=== PATIENT | female | born 1950 | race Caucasian/White ===

== ENCOUNTER 2020-07-20 15:44 | Outpatient (RCR) | payer MEDICARE, BC, SELFPAY | END 2020-07-20 23:59 | LOC: IMMUN 15:44 | PROVIDERS: PCP Nurse Practitioner Adult Health; Visit Provider Family Medicine | DX: Z23 Encounter for immunization (principal) | CPT/HCPCS: 0011A; 0012A ==

== ENCOUNTER → 2021-11-08 | Outpatient (CLI) | payer BC, MEDICARE, SELFPAY ==
[2021-11-08 13:24] LABS: ALB/GLOB Ratio 1.1 RATIO (0.9-2.4); AST(SGOT) 19 U/L (15-37); Alanine Aminotransfer ALT/SGPT 22 U/L (13-56); Albumin, Serum 3.5 g/dL (3.2-5.0); Alkaline Phosphatase 115 U/L (45-117); Anion Gap 8 (5-15); BUN 18 mg/dL (7-18); BUN/Creat Ratio 23.3 RATIO (10-20); Calcium,Total 9.2 mg/dL (8.5-10.1); Chloride 100 mmol/L (98-107); Creatinine, Serum 0.77 mg/dL (0.55-1.02); EST Glomerular Filtration Rate 78 mL/min (>60); Est Glom Filt Rate - Afr Amer 94 mL/min (>60); Globulin 3.3 g/dL (2.2-4.2); Glucose 99 mg/dL (74-106); Magnesium 1.7 mg/dL (1.6-2.6); Potassium 3.8 mmol/L (3.5-5.1); Protein, Total 6.8 g/dL (6.4-8.2); Sodium Level 132 mmol/L (136-145)
== END | disposition home or self-care (01) ==
LOC: LABSPEC 11:39
PROVIDERS: PCP Nurse Practitioner Adult Health; Visit Provider Internal Medicine Hematology & Oncology
DX: C34.90 Malignant neoplasm of unspecified part of unspecified bronchus or lung (principal)
CPT/HCPCS: 80053; 83735

== ENCOUNTER 2021-11-13 14:27 | Inpatient (IN) | payer BC, MEDICARE, SELFPAY ==
[2021-11-13 14:28] VITALS: BP 132/78; PULSE 95; RESP 20; TEMP 36.6; O2SAT 94; BMI 19.9
[2021-11-13] MEDS: Metoclopramide 10 MG/2 ML Vial 5 MG IV (15:24)
[2021-11-13] MEDS: DiphenhydrAMINE 50 MG/ML Syringe 12.5 MG IV (15:25)
[2021-11-13 15:37] LABS: Hematocrit 32.5 % (37-47); Hemoglobin 11.3 g/dL (12.0-15.0); Mean Corp Hgb Conc 34.8 g/dL (32-36); Mean Corpuscular Hgb 31.4 pg (27.0-32.0); Mean Corpuscular Volume 90.3 fL (81-99); POSITIVE COUNT YES; POSITIVE DIFFERENTIAL YES; POSITIVE MORPHOLOGY YES; Platelet Count 137 K/mm3 (150-450); RBC Distribution Width CV 12.7 % (11.6-14.6); RBC Distribution Width SD 42.1 fl (35.1-43.9); White Blood Count 19.3 K/mm3 (4.4-11.0)
[2021-11-13 16:06] LABS: Differential Indicated MANUAL DIFF
[2021-11-13 16:16] LABS: AST(SGOT) 18 U/L (15-37); Alanine Aminotransfer ALT/SGPT 17 U/L (13-56); Albumin, Serum 3.2 g/dL (3.2-5.0); Alkaline Phosphatase 117 U/L (45-117); Anion Gap 10 (5-15); BUN 9 mg/dL (7-18); BUN/Creat Ratio 18.8 RATIO (10-20); Bilirubin, Direct 0.38 mg/dL (0.00-0.30); Calcium,Total 8.4 mg/dL (8.5-10.1); Chloride 80 mmol/L (98-107); Creatinine, Serum 0.48 mg/dL (0.55-1.02); EST Glomerular Filtration Rate 136 mL/min (>60); Est Glom Filt Rate - Afr Amer 164 mL/min (>60); Globulin 2.6 g/dL (2.2-4.2); Glucose 100 mg/dL (74-106); Potassium 3.8 mmol/L (3.5-5.1); Protein, Total 5.8 g/dL (6.4-8.2)
[2021-11-13 16:20] LABS: Sodium Level 114 mmol/L (136-145)
--- NOTE | 2021-11-13 16:20 | EX.ED.DYSGE1 ---
HPI History of Present Illness Chief Complaint: Nausea/Vomiting Informant: patient Onset/Context/Timing Onset: Days (5 days) Context: Gradual Onset Current Severity: Moderate Maximum Severity: Moderate Narrative Narrative: Patient presents secondary to nausea and vomiting. She is currently undergoing chemotherapy for lung cancer. She started a new regimen and receives treatments on Monday, Monday, and Monday. She states by Monday afternoon she started to feel ill and has had nausea and vomiting since. She is not been able to keep anything down. She has tried Zofran and Phenergan at home without improvement. [facility] Medical History Heart attack Kidney stone Lung cancer Allergy/AdvReac Type Severity Reaction Status Date / Time latex Allergy Rash Verified 11/13/21 14:30 Penicillins Allergy Anaphylaxis Verified 11/13/21 14:30 Surgical History S/P AAA repair Social History Smoking Status: Former smoker ROS ROS ED Constitutional Constitutional ED: Denies chills or fever(s) Eyes Eyes: Denies change in vision or discharge from eye(s) ENT ENT ED: Denies discharge from eye(s), rhinorrhea or sore throat Cardiovascular Cardiovascular: Denies chest pain or palpitations Respiratory/Chest Respiratory/Chest: Denies cough or dyspnea Gastrointestinal Gastrointestinal: Reports abdominal pain, nausea and vomiting; Denies diarrhea Genitourinary Genitourinary ED: Denies difficulty urinating or dysuria Musculoskeletal Musculoskeletal: Denies back pain or extremity pain Integumentary Denies Abrasions or rash Neurologic Neurologic: Reports weakness; Denies headache(s) Allergic/Immunologic Allergic/Immunologic ED: Denies lip swelling or urticaria EXAM Physical Exam Const Vital Signs: 11/13/21 14:28 Temperature 98 F Temperature Source Temporal Pulse Rate 95 Respiratory Rate 20 H Blood Pressure 132/78 H Blood Pressure Mean 96 Pulse Ox 94 Oxygen Delivery Method Room Air Positive well nourished and well developed General Appearance ED: well developed HEENT Reports dry mucous membranes Mouth ED: Yes dry mucous membranes Mouth: dry mucous membranes Neck no lymphadenopathy Chest Wall inspection of chest normal and palpation of chest normal Resp normal respiratory effort and clear to auscultation bilaterally Cardio regular rate and regular rhythm GI non-tender and non-distended Auscultation: hypoactive bowel sounds Extremity normal to inspection Neuro oriented x3 and no sensory deficits noted Motor Exam: strength 5/5 throughout Psych mental status grossly normal Skin no rashes or lesions noted MDM MDM MDM Narrative Medical decision making narrative: Patient history with IV fluids along with Reglan and Benadryl. Lab work obtained. Lab Data Attestation: I reviewed the patient's lab results. Labs: Laboratory Results - last 24 hr 11/13/21 11/13/21 15:26 15:26 WBC 19.3 H RBC 3.60 L Hgb 11.3 L Hct 32.5 L MCV 90.3 MCH 31.4 MCHC 34.8 RDW Std Deviation 42.1 RDW Coeff of Surinder 12.7 Plt Count 137 L MPV 9.0 Neut % (Auto) Not Reportable Sodium 114 L* Potassium 3.8 Chloride 80 L Carbon Dioxide 24.0 Anion Gap 10 BUN 9 Creatinine 0.48 L Estim Creat Clear Calc 33.50 Est GFR (MDRD) Af Amer 164 Est GFR (MDRD) Non-Af 136 BUN/Creatinine Ratio 18.8 Glucose 100 Calcium 8.4 L Total Bilirubin 1.60 H Direct Bilirubin 0.38 H AST 18 ALT 17 Alkaline Phosphatase 117 Total Protein 5.8 L Albumin 3.2 Globulin 2.6 Treatment and Re-Evaluation Narrative: Patient's sodium returns low at 114. Her BUN and creatinine are normal. White count is elevated at 19.3. Abdomen is nontender to palpation. She will require additional normal saline for sodium correction. I will speak with hospitalist for admission. Discharge Plan Triage Chief Complaint: Nausea/Vomiting ED Provider: Wanda Solomon Dx/Rx/DC Orders Clinical Impression: Acute hyponatremia, Vomiting Primary Care Provider: Crissy Lema NP Referrals: Crissy Lema NP, [facility] [Primary Care Provider] - Disposition Disposition: [facility] Care [facility]
[2021-11-13 16:25] LABS: Lymphocyte 2 % (19-41); Monocyte 1 % (0-10); Neutrophil-Band 3 % (0-5); Neutrophil-Segmented 94 % (47-70); Total Cells Counted 100 (MANUAL DIFF)
[2021-11-13 16:28] LABS: Dohle Bodies 3+
[2021-11-13 16:32] LABS: Absolute Neutrophil Count 18.7 X10^3/uL (2.0-7.7)
[2021-11-13 16:32] LABS: Mucous, Urine 0 SEEN /hpf (<or=2+)
[2021-11-13 16:33] LABS: Absolute Lymphocyte Count 0.39 X10^3/uL (0.83-4.51)
[2021-11-13 16:35] LABS: Color, Urine Straw (Yellow); Glucose, Dipstick Normal (Normal); Ketone-Dipstick Negative (Negative); Leukocyte Esterase-Dipstick 25 /ul (Negative); Nitrite-Dipstick Negative (Negative); Occult Blood-Urine 25 /ul (Negative); Protein-Dipstick Negative (Negative); Specific Gravity, Urine 1.005 (1.002-1.030); Urine Bilirubin Dipstick Negative (Negative); Urine Clarity Clear (Clear); Urine Urobilinogen Normal (Normal)
[2021-11-13 16:47] LABS: Bacteria 1+ /hpf (None Seen); Red Blood Cells-Urine 5-10 SEEN /hpf (0-5); Squamous Epithelial Cells - UA 0-5 SEEN /hpf (5-10); White Blood Cells 0-5 SEEN /hpf (0-5)
[2021-11-13 17:19] VITALS: BP 128/74; PULSE 92; RESP 18; TEMP 36.7; O2SAT 94
[2021-11-13 18:50] VITALS: BP 137/82; PULSE 80; RESP 18; TEMP 36.6; O2SAT 95
[2021-11-13 18:51] VITALS: BMI 20.5
--- NOTE | 2021-11-13 19:03 | HP.PCM.HOS_ITS ---
HPI - General General Date of Admission: 11/13/21 Date of Service: 11/13/21 HPI Narrative SAPPHIRE LOOMIS, is a 71 F who presents to the emergency room at [facility] with complaints of persistent nausea since she had her first chemotherapy last Monday for small cell lung cancer. Patient tells me that the last time she vomited was Monday but she has had very little intake since that time. Lab work was performed by the emergency room, her WBC was elevated at 19.3, hemoglobin was 11.3, her sodium was 114, bilirubin was 1.6. 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 Patient no longer smokes, she states she quit smoking 3 months ago. Patient will be given IV normal saline, she will be put on a fluid restriction and be given demeclocycline. Labs will be monitored. [facility] Medical History Heart attack Kidney stone Lung cancer Allergy/AdvReac Type Severity Reaction Status Date / Time latex Allergy Rash Verified 11/13/21 14:30 Penicillins Allergy Anaphylaxis Verified 11/13/21 14:30 succinylcholine Allergy Anaphylaxis Verified 11/13/21 18:56 aspirin [ASA] AdvReac Upset Verified 11/13/21 18:55 Stomach Surgical History S/P AAA repair Social History Smoking Status: Former smoker ROS Constitutional Constitutional: Reports weakness; Denies anorexia, change in weight, fever(s) or night sweats Eyes Eyes: Denies blurry vision, change in eye color, change in vision, discharge from eye(s) or eye pain Cardiovascular Cardiovascular: Denies chest pain, claudication, dyspnea on exertion, edema, li ghtheadedness, orthopnea or palpitations Respiratory/Chest Respiratory/Chest: Denies cough, hemoptysis, shortness of breath at rest or shortness of breath with exertion Gastrointestinal Gastrointestinal: Reports nausea and vomiting; Denies abdominal pain, constipation, diarrhea, hematemesis, hematochezia or melena Genitourinary Genitourinary: Denies difficulty urinating, dysuria, hematuria, urinary frequency, urinary hesitancy, urinary incontinence or urinary urgency Musculoskeletal Musculoskeletal: Denies back pain, joint pain, joint stiffness, joint swelling, myalgias or neck pain Neurologic Neurologic: Reports headache(s); Denies abnormal gait, abnormal speech, dizziness, focal weakness, loss of vision, numbness, other visual disturbances, paresthesias, syncope or tingling Psychiatric Psychiatric: Denies anxiety, cognitive impairment, depression, irritability, mood swings or suicidal ideation Endocrine Endocrinology: Denies change in body appearance, cold intolerance, excessive sweating, heat intolerance, polydipsia or polyuria Hematologic/Lymphatic Hematologic/Lymphatic: Denies none, anemia, easy bleeding, easy bruising or lymphadenopathy Allergic/Immunologic Allergic/Immunologic: Denies rhinitis, urticaria, eczemia or asthma Vital Signs Vital Signs Vital Signs: 11/13/21 14:28 11/13/21 17:19 11/13/21 18:50 Temperature 98 F 98.1 F 97.8 F Temperature Source Temporal Temporal Oral Pulse Rate 95 92 80 Respiratory Rate 20 H 18 18 Blood Pressure 132/78 H 128/74 H 137/82 H Blood Pressure Mean 96 92 100 Blood Pressure Source Monitor Blood Pressure Position Semi-Fowlers Blood Pressure Location Right Arm Pulse Ox 94 94 95 Oxygen Delivery Method Room Air Room Air Room Air Weight Weight: 43.137 kg Body Mass Index (BMI) 20.5 Physical Exam Narrative Patient complains of a headache at this time Const alert, oriented x3 and no apparent distress Constitutional Narrative: Patient appears older than her stated age General Appearance: cooperative, well kempt and well developed Orientation / Consciousness: awake, oriented to person, oriented to place and oriented to time HEENT normocephalic, head/scalp atraumatic, hearing grossly normal bilaterally and moist oral mucous membranes Eyes PERRL, EOMs intact bilaterally and conjunctivae normal Neck nuchal rigidity, supple, no JVD, thyroid normal and no carotid bruits General: trachea midline Resp normal respiratory effort, no retractions, no use of accessory muscles and clear to auscultation bilaterally Auscultation: Negative for rales, rhonchi or wheezes Cardio regular rate, regular rhythm, S1 normal heart sound, S2 normal heart sound, no murmurs, no rub and no gallops GI normal to inspection, nondistended, normoactive bowel sounds, soft to palpation, non-tender and non-distended Extremity no clubbing, cyanosis or edema Skin no rashes or lesions noted General Skin Exam: no breakdown Neuro oriented x3, CN's II-XII intact bilaterally, moves all extremities, no focal motor deficits and no sensory deficits noted Sensorium / Orientation: awake and alert Speech: speech normal Psych affect normal Results Lab / Micro Data Result Diagrams: 11/13/21 15:26 11/13/21 15:26 Labs: Laboratory Results - last 24 hr 11/13/21 15:26: WBC 19.3 H, RBC 3.60 L, Hgb 11.3 L, Hct 32.5 L, MCV 90.3, MCH 31.4, MCHC 34.8, RDW Std Deviation 42.1, RDW Coeff of Surinder 12.7, Plt Count 137 L, MPV 9.0, Neut % (Auto) Not Reportable, Absolute Neuts (auto) 18.7 H, Absolute Lymphs (auto) 0.39 L, Total Counted 100, Neutrophils % (Manual) 94 H, Band Neutrophils % 3, Lymphocytes % (Manual) 2 L, Monocytes % (Manual) 1, Diff Path Review May Trisha smith Bodies 3+ 11/13/21 15:26: Sodium 114 L*, Potassium 3.8, Chloride 80 L, Carbon Dioxide 24.0, Anion Gap 10, BUN 9, Creatinine 0.48 L, Estim Creat Clear Calc 33.50, Est GFR (MDRD) Af Amer 164, Est GFR (MDRD) Non-Af 136, BUN/Creatinine Ratio 18.8, Glucose 100, Calcium 8.4 L, Total Bilirubin 1.60 H, Direct Bilirubin 0.38 H, AST 18, ALT 17, Alkaline Phosphatase 117, Total Protein 5.8 L, Albumin 3.2, Globulin 2.6 11/13/21 16:28: Urine Color Straw, Urine Clarity Clear, Urine pH 7.0, Ur Specific [place] 1.005, Urine Protein Negative, Urine Glucose (UA) Normal, Urine Ketones Negative, Urine Occult Blood 25 H, Urine Nitrite Negative, Urine Bilirubin Negative, Urine Urobilinogen Normal, Ur Leukocyte Esterase 25 H, Urine RBC 5-10 SEEN, Urine WBC 0-5 SEEN, Ur Squamous Epith Cells 0-5 SEEN, Urine Bacteria 1+, Urine Mucus 0 SEEN Assessment & Plan Assessment/Plan (1) Acute hyponatremia: PLAN: Plan 1. Acute on chronic hyponatremia-secondary to ADH from small cell lung cancer- patient will be admitted to [facility] 3, she will be given IV fluids and put on a fluid restriction, labs will be monitored, patient will be placed on the meclocycline. #2 nausea with vomiting-patient will be placed on Zofran for vomiting and nausea #3 small cell lung cancer-complicates care, recovery, and prognosis #4 leukocytosis-etiology unclear, labs will be monitored 5. Chronic pain-patient uses MS Contin and Oxy IR at home, these will be continued. Charges/Coding Visit Charges Inpatient E&M: 84593 Init Hosp L3
[2021-11-13] MEDS: Acetaminophen 325 MG Tablet 650 MG PO (19:44)
[2021-11-13] MEDS: Ondansetron 4 MG/2 ML Vial IV (19:44)
[2021-11-13] MEDS: oxyCODONE 5 MG Tablet 10 MG PO (19:45)
[2021-11-13] MEDS: 0.9% Normal Saline 1,000 ML 125 ML IV (19:49)
[2021-11-13 21:58] VITALS: O2SAT 96
[2021-11-13 23:06] LABS: Anion Gap 10 (5-15); BUN 8 mg/dL (7-18); BUN/Creat Ratio 19.6 RATIO (10-20); Calcium,Total 7.8 mg/dL (8.5-10.1); Chloride 84 mmol/L (98-107); Creatinine, Serum 0.41 mg/dL (0.55-1.02); EST Glomerular Filtration Rate 163 mL/min (>60); Est Glom Filt Rate - Afr Amer 197 mL/min (>60); Estimated Creatinine Clearance 34.63 ml/min; Glucose 100 mg/dL (74-106); Potassium 3.4 mmol/L (3.5-5.1); Sodium Level 119 mmol/L (136-145)
[2021-11-13] MEDS: Potassium Chloride Oral Tablet 20 MEQ 40 MEQ PO (23:23)
[2021-11-13] MEDS: morphine SR 15 MG Tablet PO (23:23)
[2021-11-13] MEDS: Temazepam 15 MG Capsule PO (23:31)
[2021-11-14] VITALS (8 sets, daily range): BP systolic 100–146; BP diastolic 62–70; PULSE 70–83; RESP 16–18; TEMP 36.6–37.1; O2SAT 93–97
[2021-11-14] MEDS: 0.9% Normal Saline 1,000 ML 125 ML IV ×3 (04:00→15:47)
[2021-11-14 05:04] LABS: Platelet Estimate SLT DEC (ADEQ); Red Cell Morphology NORM C+C NORMAL (NORM C&C)
[2021-11-14 06:21] LABS: Hematocrit 30.3 % (37-47); Hemoglobin 10.4 g/dL (12.0-15.0); Mean Corp Hgb Conc 34.3 g/dL (32-36); Mean Corpuscular Hgb 31.5 pg (27.0-32.0); Mean Corpuscular Volume 91.8 fL (81-99); Mean Platelet Vol. 9.4 fl (6.2-12.0); POSITIVE COUNT YES; POSITIVE MORPHOLOGY YES; Platelet Count 102 K/mm3 (150-450); RBC Distribution Width CV 12.8 % (11.6-14.6); White Blood Count 10.1 K/mm3 (4.4-11.0)
[2021-11-14 06:24] LABS: Differential Indicated MANUAL DIFF
[2021-11-14] MEDS: oxyCODONE 5 MG Tablet 10 MG PO ×3 (06:30→18:42)
[2021-11-14 06:47] LABS: Anion Gap 9 (5-15); BUN 6 mg/dL (7-18); BUN/Creat Ratio 18.8 RATIO (10-20); Chloride 86 mmol/L (98-107); Creatinine, Serum 0.32 mg/dL (0.55-1.02); EST Glomerular Filtration Rate 216 mL/min (>60); Est Glom Filt Rate - Afr Amer 262 mL/min (>60); Estimated Creatinine Clearance 34.63 ml/min; Glucose 85 mg/dL (74-106); Magnesium 1.8 mg/dL (1.6-2.6); Potassium 3.6 mmol/L (3.5-5.1); Sodium Level 118 mmol/L (136-145)
[2021-11-14 06:56] LABS: Platelet Estimate SLT DEC (ADEQ); Red Cell Morphology NORM C+C NORMAL (NORM C&C)
[2021-11-14 07:03] LABS: Lymphocyte 9 % (19-41); Metamyelocyte 1 % (0-1); Neutrophil-Band 3 % (0-5); Neutrophil-Segmented 87 % (47-70); Total Cells Counted 100 (MANUAL DIFF)
[2021-11-14 07:05] LABS: Absolute Neutrophil Count 9.2 X10^3/uL (2.0-7.7); Neutrophil # 9.19 X10^3/uL (2.7-7.7)
[2021-11-14 07:06] LABS: Absolute Lymphocyte Count 0.91 X10^3/uL (0.83-4.51); Lymphocyte # 0.91 X10^3/ul (0.83-4.51)
[2021-11-14] MEDS: morphine SR 15 MG Tablet PO ×2 (09:27→22:34)
[2021-11-14] MEDS: Enoxaparin 40 MG/0.4 ML Syringe SC (09:27)
[2021-11-14] MEDS: Acetaminophen 325 MG Tablet 650 MG PO (09:28)
--- NOTE | 2021-11-14 12:44 | PN.HOSP_ITS ---
Subjective Subjective Patient was seen and examined today, she requested a regular diet, she states she feels much better. Patient's sodium today was 118, patient has no complaints of any nausea or vomiting today Objective Data Objective Data Vital Signs: Vital Signs Temp Pulse Resp BP Pulse Ox 98 F 77 18 126/63 H 94 11/14/21 12:30 11/14/21 12:30 11/14/21 12:30 11/14/21 12:30 11/14/21 12:30 Oxygen Delivery Method Room Air Weight: 43.137 kg Body Mass Index (BMI) 20.5 Intake & Output: Intake and Output for Last 24 Hours 11/12/21 11/13/21 11/14/21 23:59 23:59 23:59 Intake Total 500 / 500 2355.83 / 2355.83 Balance 500 / 500 2355.83 / 2355.83 Lab / Micro Data Result Diagrams: 11/14/21 05:58 11/14/21 05:58 Labs: Laboratory Results - last 24 hr 11/13/21 15:26: WBC 19.3 H, RBC 3.60 L, Hgb 11.3 L, Hct 32.5 L, MCV 90.3, MCH 31.4, MCHC 34.8, RDW Std Deviation 42.1, RDW Coeff of Surinder 12.7, Plt Count 137 L, MPV 9.0, Neut % (Auto) Not Reportable, Absolute Neuts (auto) 18.7 H, Absolute Ly mphs (auto) 0.39 L, Total Counted 100, Neutrophils % (Manual) 94 H, Band Neutrophils % 3, Lymphocytes % (Manual) 2 L, Monocytes % (Manual) 1, Diff Path Review May foll, Dohle Bodies 3+, Platelet Estimate SLT DEC, RBC Morphology NORM C+C 11/13/21 15:26: Sodium 114 L*, Potassium 3.8, Chloride 80 L, Carbon Dioxide 24.0, Anion Gap 10, BUN 9, Creatinine 0.48 L, Estim Creat Clear Calc 33.50, Est GFR (MDRD) Af Amer 164, Est GFR (MDRD) Non-Af 136, BUN/Creatinine Ratio 18.8, Glucose 100, Calcium 8.4 L, Total Bilirubin 1.60 H, Direct Bilirubin 0.38 H, AST 18, ALT 17, Alkaline Phosphatase 117, Total Protein 5.8 L, Albumin 3.2, Globulin 2.6 11/13/21 16:28: Urine Color Straw, Urine Clarity Clear, Urine pH 7.0, Ur Specific [place] 1.005, Urine Protein Negative, Urine Glucose (UA) Normal, Urine Ketones Negative, Urine Occult Blood 25 H, Urine Nitrite Negative, Urine Bilirubin Negative, Urine Urobilinogen Normal, Ur Leukocyte Esterase 25 H, Urine RBC 5-10 SEEN, Urine WBC 0-5 SEEN, Ur Squamous Epith Cells 0-5 SEEN, Urine Bacteria 1+, Urine Mucus 0 SEEN 11/13/21 22:37: Sodium 119 L*, Potassium 3.4 L, Chloride 84 L, Carbon Dioxide 25.0, Anion Gap 10, BUN 8, Creatinine 0.41 L, Estim Creat Clear Calc 34.63, Est GFR (MDRD) Af Amer 197, Est GFR (MDRD) Non-Af 163, BUN/Creatinine Ratio 19.6, Glucose 100, Calcium 7.8 L 11/14/21 05:58: WBC 10.1, RBC 3.30 L, Hgb 10.4 L, Hct 30.3 L, MCV 91.8, MCH 31.5, MCHC 34.3, RDW Std Deviation 43.0, RDW Coeff of Surinder 12.8, Plt Count 102 L, MPV 9.4, Neut % (Auto) Not Reportable, Absolute Neuts (auto) 9.2 H, Absolute Lymphs (auto) 0.91, Total Counted 100, Neutrophils % (Manual) 87 H, Band Neutrophils % 3, Lymphocytes % (Manual) 9 L, Metamyelocytes % 1, Diff Path Review September, Platelet Estimate SLT DEC, RBC Morphology NORM C+C 11/14/21 05:58: Sodium 118 L*, Potassium 3.6, Chloride 86 L, Carbon Dioxide 23.0, Anion Gap 9, BUN 6 L, Creatinine 0.32 L, Estim Creat Clear Calc 34.63, Est GFR (MDRD) Af Amer 262, Est GFR (MDRD) Non-Af 216, BUN/Creatinine Ratio 18.8, Glucose 85, Calcium 8.0 L, Magnesium 1.8 Physical Exam Narrative Patient complains of a headache at this time Const alert, oriented x3 and no apparent distress Constitutional Narrative: Patient appears older than her stated age General Appearance: cooperative, well kempt and well developed Orientation / Consciousness: awake, oriented to person, oriented to place and oriented to time HEENT normocephalic, head/scalp atraumatic, hearing grossly normal bilaterally and moist oral mucous membranes Eyes PERRL, EOMs intact bilaterally and conjunctivae normal Neck nuchal rigidity, supple, no JVD, thyroid normal and no carotid bruits General: trachea midline Resp normal respiratory effort, no retractions, no use of accessory muscles and clear to auscultation bilaterally Auscultation: Negative for rales, rhonchi or wheezes Cardio regular rate, regular rhythm, S1 normal heart sound, S2 normal heart sound, no murmurs, no rub and no gallops GI normal to inspection, nondistended, normoactive bowel sounds, soft to palpation, non-tender and non-distended Extremity no clubbing, cyanosis or edema Skin no rashes or lesions noted General Skin Exam: no breakdown Neuro oriented x3, CN's II-XII intact bilaterally, moves all extremities, no focal motor deficits and no sensory deficits noted Sensorium / Orientation: awake and alert Speech: speech normal Psych affect normal Assessment & Plan Assessment/Plan (1) Acute hyponatremia: PLAN: Plan 1. 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 Chronic pain-patient uses MS Contin and Oxy IR at home, these will be con tinued. Charges/Coding Visit Charges Inpatient E&M: 33044 Subs Hosp L2
[2021-11-14] MEDS: Ondansetron 4 MG/2 ML Vial IV (22:34)
[2021-11-15] MEDS: 0.9% Normal Saline 1,000 ML 125 ML IV ×2 (00:40→06:32)
[2021-11-15] MEDS: Temazepam 15 MG Capsule PO (00:40)
[2021-11-15] MEDS: oxyCODONE 5 MG Tablet 10 MG PO ×3 (00:42→12:42)
[2021-11-15 03:58] VITALS: O2SAT 94
[2021-11-15 04:35] VITALS: BP 114/61; PULSE 71; RESP 16; TEMP 36.6; O2SAT 94
[2021-11-15] MEDS: Acetaminophen 325 MG Tablet 650 MG PO (05:41)
[2021-11-15 06:35] LABS: Anion Gap 8 (5-15); BUN 11 mg/dL (7-18); BUN/Creat Ratio 27.6 RATIO (10-20); Calcium,Total 8.1 mg/dL (8.5-10.1); Chloride 95 mmol/L (98-107); EST Glomerular Filtration Rate 167 mL/min (>60); Est Glom Filt Rate - Afr Amer 202 mL/min (>60); Estimated Creatinine Clearance 34.63 ml/min; Glucose 87 mg/dL (74-106); Potassium 3.5 mmol/L (3.5-5.1); Sodium Level 127 mmol/L (136-145)
--- NOTE | 2021-11-15 07:22 | PCM.PN.HOSP ---
Subjective Subjective Patient is a 71-year-old lady with history of small cell lung CA sent to the hospital by her oncologist with significant nausea following chemo. Patient was found to be hyponatremic admitted to regular nursing floor for subsequent management Objective Data Objective Data Vital Signs: Vital Signs Temp Pulse Resp BP Pulse Ox 97.9 F 71 16 114/61 94 11/15/21 04:35 11/15/21 04:35 11/15/21 04:35 11/15/21 04:35 11/15/21 04:35 Oxygen Delivery Method Room Air Weight: 43.137 kg Body Mass Index (BMI) 20.5 Intake & Output: Intake and Output for Last 24 Hours 11/13/21 11/14/21 11/15/21 23:59 23:59 23:59 Intake Total 500 / 500 4372.91 / 4372.91 1033.33 / 1033.33 Balance 500 / 500 4372.91 / 4372.91 1033.33 / 1033.33 Lab / Micro Data Result Diagrams: 11/14/21 05:58 11/15/21 05:50 Labs: Laboratory Results - last 24 hr 11/15/21 05:50: Sodium 127 L, Potassium 3.5, Chloride 95 L, Carbon Dioxide 24.0, Anion Gap 8, BUN 11, Creatinine 0.40 L, Estim Creat Clear Calc 34.63, Est GFR (MDRD) Af Amer 202, Est GFR (MDRD) Non-Af 167, BUN/Creatinine Ratio 27.6 H, Glucose 87, Calcium 8.1 L Physical Exam Narrative GENERAL: cooperative HEENT: Atraumatic; EYES; Anicteric, Normal Conjunctiva NECK; supple, normal thyroid, RESPIRATORY: Diminished to auscultation CARDIOVASCULAR: Regular S1 S2, GI: soft, normoactive bowel sounds, : No Renal angle tenderness; EXTREMITIES: No edema, no clubbing, MUSCULOSKELETAL: no muscle wasting NEURO: Awake; no lateralizing signs. SKIN: No Rash PSYCH; Flat affect Assessment & Plan Assessment/Plan (1) Acute hyponatremia: PLAN: Plan Patient is a 71-year-old lady with history of small cell lung CA sent to the hospital by her oncologist with significant nausea following chemo. Patient was found to be hyponatremic admitted to regular nursing floor for subsequent management 1. Acute on chronic hyponatremia ? Secondary to SIADH due to her underlying small cell Lung cancer. Patient has been managed with water restriction, demeclocycline as well as serial monitoring of electrolytes 2. Post chemo nausea vomiting ? Treated symptomatically 3. Small cell lung CA ? Patient being managed by Dr. Corbett as outpatient 4. Chronic pain ? Did continue patient pain regimen from home 5. DVT prophylaxis - On enoxaparin Charges/Coding Visit Charges Inpatient E&M: 60302 Subs Hosp L2
--- NOTE | 2021-11-15 08:01 | CON.PCM.ON_ITS ---
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 --Responsive to fluid restriction and normal saline administration. -Also responding to demeclocycline. Plan: -Demeclocycline 150 mg 3 times daily x7 more days. -Salt tablet 1 g 3 times daily. -Lasix 20 mg orally on Monday, Monday and Monday. -Fluid restriction 1 L a day. -Okay for d/c today. -My nurse coordinator will follow up with her later this week and BMP will be rechecked. (2) Small cell lung cancer: Status: Acute Code(s): C34.90 - Malignant neoplasm of unspecified part of unspecified bronchus or lung Plan: Impression: -Limited stage. Plan: -Start concurrent radiation with cycle #2. HPI Consult Data Date of Service:: 11/15/21 PCP / Referring Provider: TENISHA Conner Attending: Dr. Tobi Padilla MD Chief Complaint Chief Complaint: Hyponatremia and small cell lung cancer History of Present Illness History of Present Illness: Oncologic problem(s): 1) Limited stage small cell lung cancer. ? HPI: The patient is a 71-year-old female with a past medical history significant for smoking (quit 08/2021), COPD, CAD (VT treated with PCI and stent x1 2005; remains on ASA), anemia (previous GI bleed when on antiplatelet drugs for CAD), osteoporosis (multiple vertebral compression fractures; some repaired with kyphoplasty) and abdominal aortic aneurysm (endograft 12/2020). ? The patient was noted to have a possible 15 mm nodular density in the right midlung field on a chest x-ray done 07/25/2021. This chest x-ray was performed when she presented to the emergency room same day with a complaint of nausea and dizziness. A CT of the brain without IV contrast was also performed and it showed no evidence of an acute intracranial process. ? She presented to the ED at [facility] on 10/06 with a complaint of generally not feeling well. She complained of malaise and weakness. Associated symptoms included chills, nausea and vomiting. She was found to be COVID-positive. She was found to have severe hyponatremia with initial sodium of 116 and a repeat of 115. Chloride was also low. Chest x-ray demonstrated possible atelectasis left upper lobe. She was given IV fluid boluses and was transferred to [facility]. He was diagnosed with SIADH. Sodium improved with initial treatment with 3% saline. She was transferred to the regular medical floor once sodium improved 122. ? CT of the chest done on 10/08/2021 to rule out PE incidentally revealed new right hilar adenopathy with the largest lymph node measuring 2.2 x 2.0 cm. There was left hilar adenopathy. No mediastinal adenopathy was observed. The pulmonary artery was noted to be enlarged measuring 3.2 cm in transverse dimension. Methylmethacrylate was noted in multiple thoracic and upper lumbar vertebral bodies. There were stable compression fractures at T10, T12 and L1 levels. Common bile duct was noted to be dilated measuring 1.1 cm in transverse dimension. This was confirmed on liver ultrasound. Patient was discharged on demeclocycline 150 mg 3 times daily x7 days and instructed to begin salt tablet 1 g 3 times daily. She also was prescribed Lasix 20 mg on Monday, Wednesdays and Fridays and was fluid restricted to 1.2 L/day. ? Following discharge, patient underwent outpatient bronchoscopy at [facility] on 10/13/2021. She was noted to have normal bronchial mucosa and anatomy to at least the first subsegmental levels. Following that EBUS bronchoscope was inserted and sampling by transbronchial needle aspiration was performed using a 22-gauge needle from the right hilar lymph node. 8 samples were obtained. Preliminary cytology suggestive of malignancy. ? Pathology: A. Lung, core bx right hilum: - Small cell carcinoma (See comment). ? PET 11/02/2021: NECK: Physiologic FDG uptake seen in the visualized brain, parapharyngeal soft tissues, base of tongue, vocal cords, and salivary glands. No hypermetabolic cervical lymphadenopathy or masses. No focal hypermetabolic thyroid lesion. CHEST: Physiologic FDG uptake in the heart and mediastinum. Lungs and tracheobronchial tree: ?There is an FDG avid irregular spiculated 1.5 x 0.8 cm nodule in the posterior right upper lobe (maximum SUV 1.8), concerning for hypermetabolic neoplasm. No other hypermetabolic pulmonary consolidation, mass or nodules. Pleura: ? No hypermetabolic pleural or pericardial effusion, or pleural mass. Mediastinum and Lymph nodes: ?Hypermetabolic lymphadenopathy is seen at several sites, including pretracheal (maximum SUV 3.2), right pericardiac (maximum SUV 4.0), and hilar region (maximum SUV 3.3). Chest wall: ?Unremarkable. ABDOMEN AND PELVIS: Physiologic FDG uptake seen in the and GI tracts. Liver: No hypermetabolic hepatic lesions. Biliary: No bile duct dilation. Spleen: No hypermetabolic splenic mass. No splenomegaly. Pancreas: No hypermetabolic mass or duct dilation. Adrenals: No hypermetabolic adrenal lesion. Kidneys: No stones, hydronephrosis, or hypermetabolic lesions. GI tract: No dilation or wall thickening. Lymph nodes: No hypermetabolic abdominal or pelvic lymphadenopathy. Mesentery/Peritoneum: No ascites or mass. Vasculature: ?Vascular patency cannot be assessed due to lack of IV contrast. ?Aortobiiliac endovascular graft stent. BONES AND EXTREMITIES: No suspicious FDG avid osseous foci are detected. ?Vertebroplasties at several levels of the thoracolumbar spine. ?The imaged portions of the skeleton disclose age-related degenerative changes, with no detectable destructive lytic or sclerotic lesions. ? IMPRESSION: 1. ?NECK: No FDG avid neoplastic process. No hypermetabolic mass, adenopathy, or fluid collection. 2. ?CHEST: FDG avid right upper lobe pulmonary nodule, concerning for hypermetabolic neoplasm. ?Hypermetabolic mediastinal and right pulmonary hilar lymphadenopathy. 3. ?ABDOMEN/PELVIS: No FDG avid neoplastic process. ?No hypermetabolic mass, adenopathy, or fluid collection. 4. ?EXTREMITIES/SKELETON: ?No suspicious FDG avid osseous process. Patient had been initially admitted to [facility] for management of her acute illness consisting of hyponatremia. She was seen by nephrology. Fluid restriction was recommended. She was started on demeclocycline and received hypertonic saline initially. She was also started on salt tablets. She was discharged when sodium increased. She received her first cycle of carboplatin etoposide last week. Strategy was to administer chemotherapy for disease deep and then start concurrent radiation with cycle #2. After chemotherapy she experienced a lot of nausea and was getting an extra flu ids trying to keep up with hydration. She came to the emergency department on Monday and was found to be significantly hyponatremic again. She was administered saline and started on demeclocycline. Sodium up to 127 this morning. She offers no complaints. Her appetite is improved. She had nausea last night. She is following fluid restriction carefully. No nausea this morning. Advanced Directives Power of Rail [employer] Tabeler: No Living Will: No [facility] Medical History Heart attack Kidney stone Lung cancer Home Medications atorvastatin 10 mg tablet 10 tab BID cholesterol 11/13/21 [History Last Taken 11/13/21 09:00] demeclocycline 150 mg tablet 300 tab PO BID Check with primary doctor 11/13/21 [History Last Taken 11/13/21 16:00] fluticasone fur. 100 mcg-umeclid 62.5 mcg-vilant 25 mcg inhalat.powder (Trelegy Ellipta) 1 ea inhalation DAILY breathing treatment 11/13/21 [History Last Taken 11/13/21 09:00] sulindac 200 mg tablet 200 tab PO DAILY Check with primary doctor 11/13/21 [History Last Taken 11/13/21 09:00] morphine 15 mg tablet,extended release (MS Contin) 15 mg PO BID Check with primary doctor 11/14/21 [History Last Taken 11/13/21 22:00] Allergy/AdvReac Type Severity Reaction Status Date / Time latex Allergy Rash Verified 11/13/21 14:30 Penicillins Allergy Anaphylaxis Verified 11/13/21 14:30 succinylcholine Allergy Anaphylaxis Verified 11/13/21 18:56 aspirin [ASA] AdvReac Upset Verified 11/13/21 18:55 Stomach Surgical History S/P AAA repair Social History Smoking Status: Former smoker Physical Exam Const alert and oriented x3 Eyes no scleral icterus Neck no lymphadenopathy Lymph Lymphatic: no lymphadenopathy noted Resp normal respiratory effort Cardio regular rhythm Extremity no pedal edema Vital Signs Temperature 97.9 F 11/15/21 04:35 Temperature Source Oral 11/15/21 04:35 Pulse Rate 71 11/15/21 04:35 Pulse Strength Normal (2+) 11/14/21 20:28 Respiratory Rate 16 11/15/21 04:35 Respiratory Effort 11/15/21 03:58 Respiratory Depth Normal 11/15/21 03:58 Respiratory Pattern Normal 11/15/21 03:58 Blood Pressure 114/61 11/15/21 04:35 Blood Pressure Mean 78 11/15/21 04:35 Blood Pressure Source Monitor 11/15/21 04:35 Blood Pressure Position Semi-Fowlers 11/15/21 04:35 Blood Pressure Location Right Arm 11/15/21 04:35 Pulse Ox 94 11/15/21 04:35 Oxygen Delivery Method Room Air 11/15/21 04:35 Laboratory Results - last 24 hr 11/15/21 05:50: Sodium 127 L, Potassium 3.5, Chloride 95 L, Carbon Dioxide 24.0, Anion Gap 8, BUN 11, Creatinine 0.40 L, Estim Creat Clear Calc 34.63, Est GFR (MDRD) Af Amer 202, Est GFR (MDRD) Non-Af 167, BUN/Creatinine Ratio 27.6 H, Glucose 87, Calcium 8.1 L
--- NOTE | 2021-11-15 10:14 | DS.PCM_ITS ---
Providers Date of Admission: 11/13/21 Primary Care Physician: TENISHA Conner Reason For Visit: HYPONATREMIA Diagnosis Discharge Diagnosis (1) Acute hyponatremia: Status: Acute Code(s): E87.1 - Hypo-osmolality and hyponatremia Plan Patient is a 71-year-old lady with history of small cell lung CA sent to the hospital by her oncologist with significant nausea following chemo. Patient was found to be hyponatremic admitted to regular nursing floor for subsequent management 1. Acute on chronic hyponatremia ? Secondary to SIADH due to her underlying small cell Lung cancer. Patient has been managed with water restriction, demeclocycline as well as serial monitoring of electrolytes 2. Post chemo nausea vomiting ? Treated symptomatically 3. Small cell lung CA ? Patient being managed by Dr. Corbett as outpatient 4. Chronic pain ? Did continue patient pain regimen from home 5. DVT prophylaxis - On enoxaparin Medications at Discharge Home Medications atorvastatin 10 mg tablet 10 tab BID cholesterol 11/13/21 fluticasone fur. 100 mcg-umeclid 62.5 mcg-vilant 25 mcg inhalat.powder (Trelegy Ellipta) 1 ea inhalation DAILY breathing treatment 11/13/21 sulindac 200 mg tablet 200 tab PO DAILY Check with primary doctor 11/13/21 morphine 15 mg tablet,extended release (MS Contin) 15 mg PO BID Check with primary doctor 11/14/21 demeclocycline 150 mg tablet 150 mg PO TID Check with primary doctor #21 tabs 11/15/21 furosemide 20 mg tablet (Lasix) 20 mg PO QODAY #20 tabs 11/15/21 sodium chloride 1 gram tablet 1,000 mg PO TID #90 tabs 11/15/21 Hospital Course Summary of Care Provided Minutes Spent on Discharge: 40 Hospital Course: Patient is a 71-year-old lady with history of small cell lung CA sent to the hospital by her oncologist with significant nausea following chemo.? Patient was found to be hyponatremic admitted to regular nursing floor for subsequent management 1.? Acute on chronic hyponatremia ? Secondary to SIADH due to her underlying small cell Lung cancer.? Patient has been managed with water restriction, demeclocycline as well as serial monitoring of electrolytes 2.? Post chemo nausea vomiting ? Treated symptomatically 3.? Small cell lung CA ? Patient being managed by Dr. Corbett as outpatient 4.? Chronic pain ? Did continue patient pain regimen from home 5.? DVT prophylaxis - On enoxaparin Physical Exam Narrative GENERAL: cooperative HEENT: Atraumatic; EYES; Anicteric, Normal Conjunctiva NECK; supple, normal thyroid, RESPIRATORY: Diminished to auscultation CARDIOVASCULAR:? Regular S1 S2, GI:? soft, normoactive bowel sounds, : No Renal angle tenderness; EXTREMITIES:? No edema, no clubbing, MUSCULOSKELETAL:? no muscle wasting NEURO:? Awake;? no lateralizing signs. SKIN:? No Rash PSYCH; Flat? affect Weight / BMI Weight Weight: 43.137 kg Body Mass Index (BMI) 20.5 ABG / Lab / Microbiology Data Result Diagrams: 11/14/21 05:58 11/15/21 05:50 Laboratory: Laboratory Results - last 24 hr 11/15/21 05:50: Sodium 127 L, Potassium 3.5, Chloride 95 L, Carbon Dioxide 24.0, Anion Gap 8, BUN 11, Creatinine 0.40 L, Estim Creat Clear Calc 34.63, Est GFR (M DRD) Af Amer 202, Est GFR (MDRD) Non-Af 167, BUN/Creatinine Ratio 27.6 H, Glu cose 87, Calcium 8.1 L D/C Instructions Discharge Diet: No restrictions and 6 Cup Fluid Restriction Discharge Activity: Return to Normal Activity Call your doctor if you observe: Fever of 101 or Higher, Shortness of breath, Fainting spells and Chest pain Meaningful Use Info Meaningful Use Diagnoses (Choose all that apply): None applicable Discharge Plan Admission Admit Date/Time: 11/13/21 19:09 Attending Provider: Tobi Padilla Primary Care Provider: Crissy Lema EMBEDDED SOFTWARE DESIGN ENGINEER Consulting Providers: Yassine Albert Discharge Orders/Prescriptions Prescriptions: New furosemide [Lasix] 20 mg tablet 20 mg PO QODAY Qty: 20 0RF sodium chloride 1 gram tablet 1,000 mg PO TID Qty: 90 0RF Continued Trelegy Ellipta 100-62.5-25 mcg blister with device 1 ea INHALATION DAILY Label Comments: Inhale 1 Puff as instructed once daily. atorvastatin 10 mg tablet 10 tab BID sulindac 200 mg tablet 200 tab PO DAILY morphine [MS Contin] 15 mg Tablet Extended Release 15 mg PO BID Changed demeclocycline 150 mg tablet 150 mg PO TID Qty: 21 0RF Referrals / Follow Up: Vic Corbett DO [STAFF PHYSICIAN] - In 1 Week Crissy Lema NP, EMBEDDED SOFTWARE DESIGN ENGINEER-C [Primary Care Provider] - Disposition Disposition (needs filled in before D/C Order can be placed): Home, Self Care Charges/Coding Visit Charges Inpatient E&M: 25089 Disch Hosp
[2021-11-15] MEDS: morphine SR 15 MG Tablet PO (10:33)
[2021-11-15] MEDS: Enoxaparin 40 MG/0.4 ML Syringe SC (10:33)
--- NOTE | 2021-11-15 10:35 | CASEMGMT ---
RN SIDRA Face to Face with patient for initial transition planning/care coordination assessment. RN CM introduced self and role at [facility]. Patient lying in bed, alert and oriented. Patient willing to participate in assessment and is able to answer all questions appropriately. Care providers, pharmacy, and demographics verified. Patient wishes to discharge home, denies need for home health at this time. Patient states she has no further needs or concerns at this time. CM to follow for discharge planning needs that may arise. PCP: Torey FLOOR FINISHER Specialists: Chelle, oncology Preferred Pharmacy: [facility] Insurance: MELE Finney Prescription Benefit: yes Living Will/HPOA: none LNOK: Living Arrangements: Patient lives in a split level home with 6 steps and railing. Patient states she is independent and able to ambulate stairs. Transportation: self, DME/HHC: Patient states she has shower chair, raised toilet, cane, walker, grab bars, nebulizer, and pulse ox at home. Patient states she has had [facility] in the past. No previous SNF Disposition Plan: Patient to discharge home with family support and follow-up plans in place. Carmen VALENTINE, RN, CM
[2021-11-15 10:38] VITALS: BP 133/63; PULSE 76; RESP 16; TEMP 36.9; O2SAT 92
[2021-11-15 12:31] LABS: Pathologist Review Reviewed
[2021-11-15] MEDS: Ondansetron 4 MG/2 ML Vial IV (12:31)
[2021-11-15 12:32] LABS: Pathologist Review Reviewed
== END 2021-11-15 14:09 | disposition home or self-care (01) | DRG 644 ==
LOC: ED 16:23 → MS3 17:24
PROVIDERS: Admitting Provider Internal Medicine; Emergency Provider Emergency Medicine; PCP Nurse Practitioner Adult Health; Visit Provider Internal Medicine
DX: E22.2 Syndrome of inappropriate secretion of antidiuretic hormone (principal); C34.90 Malignant neoplasm of unspecified part of unspecified bronchus or lung; J44.9 Chronic obstructive pulmonary disease, unspecified; R11.2 Nausea with vomiting, unspecified; I25.10 Atherosclerotic heart disease of native coronary artery without angina pectoris; I25.2 Old myocardial infarction; G89.29 Other chronic pain; Z79.899 Other long term (current) drug therapy; Z87.891 Personal history of nicotine dependence; Z95.5 Presence of coronary angioplasty implant and graft
CPT/HCPCS: 36415; 80048; 80076; 81001; 83735; 85025; 97802; 99283; 99406; J7030; A4216; J2405

== ENCOUNTER 2022-01-04 09:21 | Inpatient (IN) | payer BC, MEDICARE, SELFPAY ==
[2022-01-04] VITALS (25 sets, daily range): BP systolic 76–143; BP diastolic 56–105; PULSE 88–168; RESP 14–32; TEMP 36.8–37.3; O2SAT 91–100; BMI 22.0; BMI 21.3
--- NOTE | 2022-01-04 09:43 | RAD_ITS ---
INDICATION: Pneumonia EXAMINATION/TECHNIQUE: X-RAY - XR Chest 1 View COMPARISON: None. FINDINGS: LINES/DEVICES: EKG leads are seen superimposing the chest. LUNGS: Biapical prominence suggestive of COPD changes. Prominence of the bronchovascular interstitial lung markings is visualized bilaterally. Peribronchial cuffing bilateral hilar prominence is seen, subtle scattered areas of patchy airspace opacification seen in bilateral lung hook but no evidence of focal lung consolidation is seen. Mild blunting of the costophrenic angles is seen, could represent pleural reaction. MEDIASTINUM AND CARDIOVASCULAR STRUCTURES: Cardiac silhouette is unremarkable. BONES AND SOFT TISSUES: Unremarkable. RAD/Chest 1 View (Portable) IMPRESSION: COPD changes and chronic interstitial changes seen, recommend clinical correlation for interstitial pneumonia no evidence of focal lung consolidation Electronically Signed: Héctor Noe MD at 10:48 EDT Reading Location ID and State: [facility] / [place] Tel , Service support ,
--- NOTE | 2022-01-04 09:44 | EKG12_ITS ---
Test Reason : SHORT OF BREATH Blood Pressure : / mmHG Vent. Rate : 095 BPM Atrial Rate : 095 BPM P-R Int : 146 ms QRS Dur : 096 ms QT Int : 400 ms P-R-T Axes : 064 049 038 degrees QTc Int : 502 ms Normal sinus rhythm Nonspecific ST abnormality Prolonged QT Abnormal ECG Confirmed by CECILIA HASKINS, KASANDRA ([id number]), index editor JESSIE HORNE ([id number]) on 01/06/2022 10:04:13 AM Referred By: MING Confirmed By:KASANDRA BROOKS MD
--- NOTE | 2022-01-04 09:45 | ED.VIS.DYS ---
HPI History of Present Illness Chief Complaint: Shortness of Breath Narrative Narrative: Patient's underwent chemotherapy 2 weeks ago is due again in another week presents with shortness of breath since 7:00 this morning, approximately 3 hours ago. She does not wear oxygen at home. She denies any chest pain. She has an occasional cough. Of note, she states that she went to [facility] yesterday and had a CAT scan of her lungs and was diagnosed with pneumonia and put on Levaquin. She used her inhaler this morning and states she feels short of breath and it was ineffective. She is had a low-grade fever over the last few days as high as 99.5 degrees. She was also put on prednisone yesterday. She denies any exacerbating or alleviating symptoms except for she went to lay down and she felt short of breath. [facility] Medical History AAA (abdominal aortic aneurysm) CAD (coronary artery disease) COPD exacerbation Heart attack History of GI bleed Kidney stone Lung cancer Osteoporosis SIADH (syndrome of inappropriate ADH production) Tobacco abuse Home Medications atorvastatin 10 mg tablet 10 tab QHS cholesterol 11/13/21 [History Last Taken 1 Month Ago ~12/04/21] fluticasone fur. 100 mcg-umeclid 62.5 mcg-vilant 25 mcg inhalat.powder (Trelegy Ellipta) 1 ea inhalation DAILY breathing treatment 11/13/21 [History Last Taken 01/03/22] sulindac 200 mg tablet 200 tab PO DAILY Check with primary doctor 11/13/21 [History Last Taken 01/02/22] morphine 15 mg tablet,extended release (MS Contin) 15 mg PO BID PAIN 11/14/21 [History Last Taken 01/04/22] sodium chloride 1 gram tablet 1,000 mg PO TID #90 tabs 11/15/21 [Rx Last Taken 01/03/22] albuterol sulfate 90 mcg/actuation aerosol inhaler 2 inh inhalation Q4H PRN SOB 01/04/22 [History Last Taken 01/04/22] alendronate 70 mg tablet 70 mg PO SOLIS BONES 01/04/22 [History Last Taken 01/02/22] aspirin 325 mg tablet 325 mg PO DAILY 01/04/22 [History Last Taken 01/02/22] levofloxacin 750 mg tablet 750 mg PO DAILY 01/04/22 [History Last Taken 01/04/22] loratadine 10 mg tablet (Claritin) 10 mg PO DAILY 01/04/22 [History Last Taken 01/04/22] magnesium oxide 400 mg (241.3 mg magnesium) tablet 400 mg PO DAILY SUPPLEMENT 01/04/22 [History Last Taken 01/03/22] oxycodone-acetaminophen 10 mg-325 mg tablet (Percocet) 1 tab PO Q6H PRN Pain 01/04/22 [History Last Taken 01/03/22] pantoprazole 40 mg tablet,delayed release 40 mg PO DAILY PRN GERD 01/04/22 [History Last Taken Unknown] potassium chloride 20 mEq tablet,extended release 20 meq PO BID 01/04/22 [History Last Taken 01/03/22] prednisone 50 mg tablet 50 mg PO DAILY 01/04/22 [History Last Taken 01/04/22] sucralfate 100 mg/mL oral suspension 10 ml PO 4X/DAY PRN GERD 01/04/22 [History Last Taken Unknown] Allergy/AdvReac Type Severity Reaction Status Date / Time latex Allergy Rash Verified 11/13/21 14:30 Penicillins Allergy Anaphylaxis Verified 11/13/21 14:30 succinylcholine Allergy Anaphylaxis Verified 11/13/21 18:56 aspirin [ASA] AdvReac Upset Verified 11/13/21 18:55 Stomach Family History (Updated 01/04/22 @ 13:[address] Mirian Hernandez DO) Other CAD (coronary artery disease) Heart disease Hypertension Surgical History S/P AAA repair Social History (Updated 01/04/22 @ 13:[address] Mirian Hernandez DO) Smoking Status: Former smoker alcohol intake: never substance use type: does not use ROS ROS ED ROS Narrative Constitutional: No fever, no chills. HEENT: No sore throat. No neck pain. No loss of vision. No rhinorrhea. Cardiovascular: No chest pain. No palpitations. No pedal edema. Respiratory: Occasional cough, positive shortness of breath. Abdominal: No abdominal pain. No nausea. No vomiting. Genitourinary: No dysuria. No hematuria. Musculoskeletal: No myalgias. No arthralgias. Neurologic: No headaches. No dizziness. No lightheadedness. Skin: No rash. No change in color. Psychiatric: No depression. No anxiety. EXAM Physical Exam Narrative Exam Narrative: Afebrile. Vital signs noted. Mild cachexia. HEENT: Normocephalic. Atraumatic. PERRL, EOMI. Neck soft and supple. No point tenderness or step off. Cardiovascular: Regular rate and rhythm. No murmurs, rubs, or gallops appreciated. Respiratory: No tachypnea. Lungs clear to auscultation bilaterally. Gastrointestinal: Abdomen soft, nontender, with normoactive bowel sounds. No rebound or guarding. Neurological: Awake. Alert. Nonfocal, nonlateralizing. Skin: No rash. Normal color. No pallor. Musculoskeletal: No pedal edema. Full range of motion extremities. Const Vital Signs: 01/04/22 09:21 01/04/22 09:44 01/04/22 10:23 Temperature 98.3 F Temperature Source Oral Pulse Rate 98 97 Respiratory Rate 24 H 22 H Respiratory Effort Short of Breath Respiratory Depth Normal Respiratory Pattern Tachypnea Normal Blood Pressure 116/59 L Blood Pressure Mean 78 Pulse Ox 98 Oxygen Delivery Method Nasal Cannula Nasal Cannula Oxygen Flow Rate (L/min) 2 4 01/04/22 10:20 01/04/22 11:37 Temperature 98.7 F Temperature Source Temporal Pulse Rate 107 H 105 H Respiratory Rate 18 Respiratory Effort Respiratory Depth Respiratory Pattern Blood Pressure 143/91 H 112/63 Blood Pressure Mean 108 79 Pulse Ox 96 91 Oxygen Delivery Method Room Air Nasal Cannula Oxygen Flow Rate (L/min) 2 MDM MDM MDM Narrative Medical decision making narrative: Comprehensive work-up was pursued. EKG interpreted by myself demonstrates normal sinus rhythm at 95 bpm without ectopy or acute ST changes. No STEMI. She is neutropenic at 2.9 with a hemoglobin low at 6.3, hematocrit 19.9. Platelet count low at 30. Electrolyte panel shows potassium slightly low at 3.2, electrolytes otherwise unremarkable with a BUN of 18 and a creatinine of 1.04. Glucose is appropriately elevated at 148 with an anion gap of 7. AST and ALT are normal. Chest x-ray interpreted by myself shows no evidence of consolidation or pneumonia. I discussed the patient was Dr. Corbett. Patient has refused rectal examination, denying any rectal bleeding. She does require transfusion as he reviewed yesterday's labs from [place] and her hemoglobin was 7.3. She has dropped a whole point within the last day. The neutropenia is most likely secondary to her chemotherapy along with her low platelet count. It was not felt that she would do well at home as an outpatient taking antibiotics. She was started on Levaquin and type and crossmatch were ordered for transfusion for her anemia requiring transfusions. Patient was discussed with Dr. Hernandez for admission. She is in stable condition. Lab Data Attestation: I reviewed the patient's lab results. Labs: Laboratory Results - last 24 hr 01/04/22 01/04/22 01/04/22 10:23 10:23 13:00 WBC 2.9 L RBC 1.90 L Hgb 6.3 L Hct 19.9 L MCV 104.7 H MCH 33.2 H MCHC 31.7 L RDW Std Deviation 63.6 H RDW Coeff of Surinder 16.7 H Plt Count 30 L* MPV 10.8 Immature Gran % (Auto) 1.400 H Neut % (Auto) 92.8 H Lymph % (Auto) 2.4 L [place] % (Auto) 3.1 Eos % (Auto) 0.0 Baso % (Auto) 0.3 Absolute Neuts (auto) 2.7 Absolute Lymphs (auto) 0.07 L Nucleated RBC % 0 Differential Comment COMMENT Diff Path Review May foll Platelet Estimate MKD DEC Sodium 142 Potassium 3.2 L Chloride 109 H Carbon Dioxide 26.0 Anion Gap 7 BUN 18 Creatinine 1.04 H Estim Creat Clear Calc 35.66 Est GFR (MDRD) Af Amer 67 Est GFR (MDRD) Non-Af 55 L BUN/Creatinine Ratio 17.3 Glucose 148 H Calcium 8.7 Total Bilirubin 0.50 AST 18 ALT 18 Alkaline Phosphatase 144 H Total Protein 5.9 L Albumin 2.3 L Globulin 3.6 Albumin/Globulin Ratio 0.6 L Blood Type O POSITIVE Antibody Screen NEGATIVE Crossmatch See Detail Radiography Diagnostic Testing: Clinical Impression(s) from Imaging Studies Chest X-Ray 01/04/22 09:43 IMPRESSION: COPD changes and chronic interstitial changes seen, recommend clinical correlation for interstitial pneumonia no evidence of focal lung consolidation Electronically Signed: Héctor Noe MD at 10:48 EDT , Discharge Plan Dx/Rx/DC Orders Clinical Impression: Small cell lung cancer, Anemia requiring transfusions, Hypoxia, Pneumonia, Thrombocytopenia, Neutropenia Disposition Disposition: Acute Care [facility] Discharge Date/Time: 01/04/22 14:40
--- NOTE | 2022-01-04 09:49 | NURSING ---
NO OLD EKGS
[2022-01-04] MEDS: Ipratropium/Albuterol Sulfate 3 ML AMPUL.NEB INHALATION ×2 (10:22→19:29)
[2022-01-04 10:32] LABS: Absolute Lymphocyte Count 0.07 X10^3/uL (0.83-4.51); Absolute Neutrophil Count 2.7 X10^3/uL (2.0-7.7); Basophil# 0.01 X10^3/uL; Basophil% 0.3 % (0-1); Hematocrit 19.9 % (37-47); Hemoglobin 6.3 g/dL (12.0-15.0); Lymphocyte # 0.07 X10^3/ul (0.83-4.51); Lymphocyte % 2.4 % (19-41); Mean Corp Hgb Conc 31.7 g/dL (32-36); Mean Corpuscular Hgb 33.2 pg (27.0-32.0); Mean Corpuscular Volume 104.7 fL (81-99); Mean Platelet Vol. 10.8 fl (6.2-12.0); Monocyte# 0.09 X10^3/uL; Monocyte% 3.1 % (0-10); NRBC Flagged by Analyzer 0 % (0-5); Neutrophil # 2.73 X10^3/uL (2.7-7.7); Neutrophil % 92.8 % (47-70); POSITIVE COUNT YES; POSITIVE DIFFERENTIAL YES; POSITIVE MORPHOLOGY YES; RBC Distribution Width CV 16.7 % (11.6-14.6); RBC Distribution Width SD 63.6 fl (35.1-43.9); White Blood Count 2.9 K/mm3 (4.4-11.0)
[2022-01-04 10:37] LABS: Differential Indicated SCAN CRITERIA MET; Platelet Count 30 K/mm3 (150-450)
[2022-01-04 10:51] LABS: ALB/GLOB Ratio 0.6 RATIO (0.9-2.4); AST(SGOT) 18 U/L (15-37); Alanine Aminotransfer ALT/SGPT 18 U/L (13-56); Albumin, Serum 2.3 g/dL (3.2-5.0); Alkaline Phosphatase 144 U/L (45-117); Anion Gap 7 (5-15); BUN 18 mg/dL (7-18); BUN/Creat Ratio 17.3 RATIO (10-20); Calcium,Total 8.7 mg/dL (8.5-10.1); Chloride 109 mmol/L (98-107); Creatinine, Serum 1.04 mg/dL (0.55-1.02); EST Glomerular Filtration Rate 55 mL/min (>60); Est Glom Filt Rate - Afr Amer 67 mL/min (>60); Estimated Creatinine Clearance 35.66 ml/min; Globulin 3.6 g/dL (2.2-4.2); Glucose 148 mg/dL (74-106); Potassium 3.2 mmol/L (3.5-5.1); Protein, Total 5.9 g/dL (6.4-8.2); Sodium Level 142 mmol/L (136-145)
[2022-01-04 11:10] LABS: Platelet Estimate MKD DEC (ADEQ)
--- NOTE | 2022-01-04 12:58 | ED.RN ---
called pharmacy for ms contin medication
--- NOTE | 2022-01-04 13:10 | NURSING ---
DR EDUARDO LAI
[2022-01-04] MEDS: morphine SR 15 MG Tablet PO (13:16)
[2022-01-04] MEDS: levoFLOXacin IV 750 MG/150 ML BAG 100 MG IV (13:20)
--- NOTE | 2022-01-04 13:20 | NURSING ---
MED SURG EDUARDO HYPOXIA, ANEMIA REQUIRING TRANSFUSION, PNEUMONIA, SMALL CELL LUNG CA
--- NOTE | 2022-01-04 13:44 | PCM.HP.STD ---
HPI - General General Date of Admission: 01/04/22 Date of Service: 01/04/22 Chief Complaint: Shortness of breath HPI Narrative SAPPHIRE LOOMIS, is a 71 F who presented to the emergency department [facility] on 01/04/2022 with a chief complaint of shortness of breath. The patient has been recently diagnosed with small cell lung CA and is undergoing chemo and radiation. Over the last 3 to 5 days she developed fevers, chills, cough with sputum production different from her baseline, and shortness of breath. Yesterday she presented to [facility]'s emergency department at which time a CAT scan was performed that showed nodular densities that were new and she was diagnosed with pneumonia and placed on Levaquin and placed on a steroid taper. Her shortness of breath continue to worsen the last 24 hours however her chills and fever seem to be improved. With her worsening shortness of breath she presented to the emergency department here today. She reports her T-max at home was 102 but she has had no fever in the last 24 hours since starting antibiotics. I did talk to Dr. Corbett her last chemo was on December 22 at which time she received carboplatinum and etoposide. He expects her counts to be at her echo currently. She is on a 3-week cycle for chemo so she is not due for any chemo for the next week which will be delayed even further secondary to her current illness. Vital signs on presentation the emergency department show temperature of 98.3, heart rate 97-107, blood pressure 116/59, respiratory rate anywhere from 20-24, and oxygen saturations are 91-98% on 2 L nasal cannula. There is no documented oxygen saturation on room air at presentation. Her CBC shows a leukopenia with a white count of 2.9, hemoglobin of 6.3, platelet count of 30,000 and she has a left shift with a neutrophilia at 92.8%. Absolute neutrophil count is 2.7. Her chemistry shows a sodium of 142, potassium of 3.2 BUN is 18 and serum creatinine is 1.04 with a baseline serum creatinine of 0.3-0.4. Liver functions are normal. Chest here shows COPD related changes and chronic interstitial changes with possible interstitial pneumonia. No focal consolidation noted. Her CT done yesterday at [place] showed bilateral upper lung zone nodules and masses concerning for advancing metastatic disease versus infectious process with additional lung nodules noted to be diminished in size and advanced centrilobular emphysema with evidence of pulmonary artery hypertension as well as slightly worsening mediastinal lymphadenopathy. In the emergency department she was treated with morphine for pain and given antibiotics with Levaquin. [facility] Medical History AAA (abdominal aortic aneurysm) CAD (coronary artery disease) COPD exacerbation Heart attack History of GI bleed Kidney stone Lung cancer Osteoporosis SIADH (syndrome of inappropriate ADH production) Tobacco abuse Home Medications atorvastatin 10 mg tablet 10 tab QHS cholesterol 11/13/21 [History Last Taken 11/13/21 09:00] fluticasone fur. 100 mcg-umeclid 62.5 mcg-vilant 25 mcg inhalat.powder (Trelegy Ellipta) 1 ea inhalation DAILY breathing treatment 11/13/21 [History Last Taken 11/13/21 09:00] sulindac 200 mg tablet 200 tab PO DAILY Check with primary doctor 11/13/21 [History Last Taken 11/13/21 09:00] morphine 15 mg tablet,extended release (MS Contin) 15 mg PO BID Check with primary doctor 11/14/21 [History Last Taken 11/13/21 22:00] sodium chloride 1 gram tablet 1,000 mg PO TID #90 tabs 11/15/21 [Rx Last Taken Unknown] albuterol sulfate 90 mcg/actuation aerosol inhaler 2 inh inhalation Q4H PRN SOB 01/04/22 [History Last Taken 01/04/22] alendronate 70 mg tablet 70 mg PO SOLIS BONES 01/04/22 [History Last Taken 01/02/22] aspirin 325 mg tablet 325 mg PO DAILY 01/04/22 [History Last Taken Unknown] levofloxacin 750 mg tablet 750 mg PO DAILY 01/04/22 [History Last Taken Unknown] loratadine 10 mg tablet (Claritin) 10 mg PO DAILY 01/04/22 [History Last Taken Unknown] magnesium oxide 400 mg (241.3 mg magnesium) tablet 400 mg PO DAILY SUPPLEMENT 01/04/22 [History Last Taken 01/03/22] oxycodone-acetaminophen 10 mg-325 mg tablet (Percocet) 1 tab PO Q6H PRN Pain 01/04/22 [History Last Taken Unknown] pantoprazole 40 mg tablet,delayed release 40 mg PO DAILY PRN GERD 01/04/22 [History Last Taken Unknown] potassium chloride 20 mEq tablet,extended release 20 meq PO BID 01/04/22 [History Last Taken Unknown] prednisone 50 mg tablet 50 mg PO DAILY 01/04/22 [History Last Taken Unknown] sucralfate 100 mg/mL oral suspension 10 ml PO 4X/DAY PRN GERD 01/04/22 [History Last Taken Unknown] Allergy/AdvReac Type Severity Reaction Status Date / Time latex Allergy Rash Verified 11/13/21 14:30 Penicillins Allergy Anaphylaxis Verified 11/13/21 14:30 succinylcholine Allergy Anaphylaxis Verified 11/13/21 18:56 aspirin [ASA] AdvReac Upset Verified 11/13/21 18:55 Stomach Family History (Updated 01/04/22 @ 13:[address] Mirian Hernandez DO) Other CAD (coronary artery disease) Heart disease Hypertension Surgical History S/P AAA repair Social History (Updated 01/04/22 @ 13:[address] Mirian Hernandez DO) Smoking Status: Former smoker alcohol intake: never substance use type: does not use ROS Constitutional Constitutional: Reports chills, fatigue, fever(s), malaise and weakness; Denies anorexia, change in weight, night sweats or other Eyes Eyes: Denies blurry vision, change in eye color, change in vision, discharge from eye(s), double vision, erythema, eye pain, loss of vision or other ENT HEENT: Denies abnormal hearing, dysphagia, ear pain, epistaxis, headache(s), hearing loss, nasal congestion, nasal discharge, post nasal drip, sinus pressure, sore throat or other Cardiovascular Cardiovascular: Reports dyspnea on exertion; Denies chest pain, claudication, edema, lightheadedness, orthopnea, palpitations, paroxysmal nocturnal dyspnea, rapid heart rate, syncope or other Respiratory/Chest Respiratory/Chest: Reports cough, dyspnea, productive cough, shortness of breath at rest and shortness of breath with exertion; Denies excessive phlegm production, hemoptysis, wheezing or other Gastrointestinal Gastrointestinal: Denies abdominal pain, coffee ground emesis, constipation, diarrhea, dyspepsia, hematemesis, hematochezia, loose stools, melena, nausea, vomiting or other Genitourinary Genitourinary: Denies burning urination, difficulty urinating, dysuria, hematuria, nocturia, urinary frequency, urinary hesitancy, urinary incontinence, urinary urgency or other Musculoskeletal Musculoskeletal: Denies arthralgias, back pain, joint pain, joint stiffness, joint swelling, myalgias, neck pain or other Neurologic Neurologic: Denies abnormal gait, abnormal speech, confusion, disequilibrium, dizziness, focal weakness, headache(s), numbness, paresthesias, seizure-like activity, seizures, syncope, tingling, tremor(s) or other Psychiatric Psychiatric: Denies anxiety, depression, homicidal ideation, suicidal ideation or other Endocrine Endocrinology: Denies change in body appearance, cold intolerance, excessive sweating, heat intolerance, polydipsia, polyuria or other Hematologic/Lymphatic Hematologic/Lymphatic: Denies anemia, easy bleeding, easy bruising, lymphadenopathy or other Allergic/Immunologic Allergic/Immunologic: Denies rhinitis, hives, eczemia, asthma or other Vital Signs Vital Signs Vital Signs: 01/04/22 09:21 01/04/22 09:44 01/04/22 10:23 Temperature 98.3 F Temperature Source Oral Pulse Rate 98 97 Respiratory Rate 24 H 22 H Respiratory Effort Short of Breath Respiratory Depth Normal Respiratory Pattern Tachypnea Normal Blood Pressure 116/59 L Blood Pressure Mean 78 Pulse Ox 98 Oxygen Delivery Method Nasal Cannula Nasal Cannula Oxygen Flow Rate (L/min) 2 4 01/04/22 10:20 01/04/22 11:37 01/04/22 13:24 Temperature 98.7 F 99.1 F Temperature Source Temporal Temporal Pulse Rate 107 H 105 H 104 H Respiratory Rate 18 20 H Respiratory Effort Respiratory Depth Respiratory Pattern Blood Pressure 143/91 H 112/63 126/58 H Blood Pressure Mean 108 79 80 Pulse Ox 96 91 100 Oxygen Delivery Method Room Air Nasal Cannula Nasal Cannula Oxygen Flow Rate (L/min) 2 4 Weight Weight: 46.2 kg Body Mass Index (BMI) 22.0 Physical Exam Const alert, oriented x3 and no apparent distress Constitutional Narrative: Thin older white female, appears older than stated age, lying in bed, currently on 2 L nasal cannula and appears comfortable, no signs of respiratory distress, appears malnourished General Appearance: cooperative HEENT normocephalic, head/scalp atraumatic and moist oral mucous membranes HEENT Narrative: Edentulous, Mallampati 1-2, no thrush, hearing loss noted on left side Eyes PERRL and EOMs intact bilaterally Eyes Narrative: Pale conjunctiva bilaterally, no scleral icterus Neck no lymphadenopathy, supple, no JVD and no carotid bruits Neck Narrative: Trachea midline, no thyroid enlargement Resp no retractions and no use of accessory muscles Resp Narrative: Markedly diminished diffusely with few scattered crackles, mild tachypnea with no signs of extremis Auscultation: crackles; Negative for rhonchi or wheezes Cardio regular rhythm, S1 normal heart sound, S2 normal heart sound, no murmurs, no rub, no gallops, no clicks and no JVD Cardio Narrative: Mild tachycardia GI normal to inspection, nondistended, normoactive bowel sounds, soft to palpation, non-tender and non-distended Extremity Extremity Narrative: Trace bilateral lower extremity edema-chronic, no cyanosis or clubbing Skin no rashes or lesions noted, no wounds, skin turgor normal, no jaundice, no petechiae and no mottling Skin Narrative: Scattered ecchymosis but no wounds noted erythematous patch on posterior aspect of right chest wall Hair: total alopecia Neuro oriented x3, CN's II-XII intact bilaterally, moves all extremities and no focal motor deficits Neuro Narrative: Generalized weakness noted Sensorium / Orientation: awake, alert, oriented to person, oriented to place and oriented to time Speech: speech normal Psych affect normal Psych Narrative: Very pleasant and appropriately interactive Results Lab / Micro Data Result Diagrams: 01/04/22 10:23 01/04/22 10:23 Labs: Laboratory Results - last 24 hr 01/04/22 10:23: WBC 2.9 L, RBC 1.90 L, Hgb 6.3 L, Hct 19.9 L, MCV 104.7 H, MCH 33.2 H, MCHC 31.7 L, RDW Std Deviation 63.6 H, RDW Coeff of Surinder 16.7 H, Plt Count 30 L*, MPV 10.8, Immature Gran % (Auto) 1.400 H, Neut % (Auto) 92.8 H, Lymph % (Auto) 2.4 L, [place] % (Auto) 3.1, Eos % (Auto) 0.0, Baso % (Auto) 0.3, Absolute Neuts (auto) 2.7, Absolute Lymphs (auto) 0.07 L, Nucleated RBC % 0, Differential Comment COMMENT, Diff Path Review May foll, Platelet Estimate MKD 01/04/22 10:23: Sodium 142, Potassium 3.2 L, Chloride 109 H, Carbon Dioxide 26.0, Anion Gap 7, BUN 18, Creatinine 1.04 H, Estim Creat Clear Calc 35.66, Est GFR (MDRD) Af Amer 67, Est GFR (MDRD) Non-Af 55 L, BUN/Creatinine Ratio 17.3, Glucose 148 H, Calcium 8.7, Total Bilirubin 0.50, AST 18, ALT 18, Alkaline Phosphatase 144 H, Total Protein 5.9 L, Albumin 2.3 L, Globulin 3.6, Albumin/Globulin Ratio 0.6 L 01/04/22 13:00: Crossmatch See Detail Radiology Impression Chest X-Ray 01/04/22 09:43 IMPRESSION: COPD changes and chronic interstitial changes seen, recommend clinical correlation for interstitial pneumonia no evidence of focal lung consolidation Electronically Signed: Héctor Noe MD at 10:48 EDT Reading Location ID and State: [facility] / [place] Tel , Service support , Assessment & Plan Assessment/Plan (1) Anemia requiring transfusions: (2) Thrombocytopenia: (3) Hypoxia: (4) Pneumonia: (5) Leukopenia: (6) Small cell lung cancer: PLAN: Plan Hypoxia with suspected pneumonia -Nodular infiltrates noted on CT scan but does not seem consistent with her lung CA along with mediastinal lymphadenopathy that is worsened -Other areas of cancer have decreased in size with chemo -Patient is currently on 2 L nasal cannula -Wean as able -Patient is not O2 dependent at baseline -Check strep pneumo and Legionella antigens -Check respiratory panel -Check COVID and flu -Continue Levaquin for total of 7 days -Solu-Medrol 40 every 8 -Aggressive pulmonary toilet -Incentive spirometry/Pep therapy with Acapella Pancytopenia -Likely related to chemotherapy -Chemo is carboplatin and etoposide--> last dose 12/22/2021--> next round plan for 01/12/2022(will need to be delayed secondary to illness) -Transfused 2 units packed red blood cells -Continue to monitor platelets and transfuse platelets if less than 20,000 -We will hold NSAIDs and aspirin -Daily CBC -Patient is not neutropenic -Check guaiac stool with history of GI bleed Hypokalemia -Continue home baseline potassium supplementation -Will dose extra 40 mill equivalents today -Repeat in a.m. -Check a.m. magnesium level CHIN secondary to dehydration -Baseline BUN and serum creatinine are between 6 and 8 for the BUN and 0.3-0.44 serum creatinine -Current serum creatinine is greater than 0.3 elevation from baseline therefore she meets criteria for CHIN -We will hydrate gently with IV fluids--> normal saline -We will have to watch sodium closely -Baseline sodium is slightly hyponatremic given history of SIADH History of SIADH secondary to her lung CA -Continue fluid restriction at 1.25 L -Continue home salt tablets -Patient with bilateral lower extremity edema that started when she took salt tablets -Recent bilateral lower extremity Dopplers negative for DVT per discussion with patient -Monitor daily BMPs Small cell lung CA -Follows with Dr. Corbett -On carboplatin and etoposide with concurrent radiation -Discussed case with Dr. Corbett no need for current involvement in less something changes CAD with history of [facility] -History of stent placement -Hold aspirin given thrombocytopenia -Continue home statin Hyperlipidemia -Continue home atorvastatin 10 mg nightly COPD/emphysema -As needed albuterol -Scheduled DuoNebs neck -Hold home Trelegy Ellipta and restart at discharge Osteoporosis -Continue alendronate at discharge Chronic pain -Continue home MS Contin and Percocet GERD with history of GI bleed -Continue home pantoprazole -Continue Carafate DVT prophylaxis -SCDs -Chemoprophylaxis on hold secondary to thrombocytopenia and anemia CODE STATUS -Full code Charges/Coding Visit Charges Inpatient E&M: 00672 Init Hosp L3
[2022-01-04] MEDS: Potassium Chloride Oral Tablet 20 MEQ 40 MEQ PO (15:22)
[2022-01-04] MEDS: Sodium Chloride 1 GM Tablet PO (15:22)
[2022-01-04] MEDS: oxyCODONE 5 MG Tablet 10 MG PO (15:36)
[2022-01-04 17:14] LABS: M R Staph aureus DNA By PCR Negative (Negative); Probe Check PASS; Specimen Processing Control PASS
--- NOTE | 2022-01-04 19:06 | RAD_ITS ---
STUDY: X-RAY CHEST REASON FOR EXAM: Female, 71 years old. SOB TECHNIQUE: Single view COMPARISON: 01/04/2022 10:22 AM FINDINGS: Moderate overinflation consistent with COPD. There are moderate interstitial infiltrates seen bilaterally which allowing for technical differences do appear progressive as compared to the prior study infiltrate in the medial right upper lobe alveolar nature is progressive.. Normal size heart. Normal mediastinum and valeriy. Normal visualized pulmonary arteries. Normal visualized aortic arch and descending thoracic aorta. There are prior kyphoplasty seen at multiple levels. These are seen at the T10 level T12, L1, L2, and L3 levels. There is no demonstrated abnormality of the visualized soft tissue structures of the upper abdomen. RAD/Chest 1 View IMPRESSION: Progressive interstitial pneumonitis. Progressive alveolar infiltrate medial right apex. Mass cannot be excluded at this site. Prior kyphoplasty is at multiple levels detailed above. Electronically Signed: Yassine Johnson MD, CALEB at 19:23 EDT ,
--- NOTE | 2022-01-04 19:20 | EKG12_ITS ---
Test Reason : SOB Blood Pressure : / mmHG Vent. Rate : 166 BPM Atrial Rate : 000 BPM P-R Int : 000 ms QRS Dur : 130 ms QT Int : 326 ms P-R-T Axes : 000 -77 073 degrees QTc Int : 541 ms Supraventricular tachycardia Left axis deviation Non-specific intra-ventricular conduction block Minimal voltage criteria for LVH, may be normal variant ( Jacob product ) Cannot rule out Septal infarct , age undetermined Abnormal ECG When compared with ECG of 04-JAN-2022 10:03, MANUAL COMPARISON REQUIRED, DATA IS UNCONFIRMED Confirmed by CECILIA HASKINS, KASANDRA ([id number]), graphics editor JESSIE HORNE ([id number]) on 01/07/2022 9:35:02 AM Referred By: EDUARDO Confirmed By:KASANDRA BROOKS MD
[2022-01-04] MEDS: Morphine 4 MG/ML Syringe (19:27)
[2022-01-04] MEDS: MethylPREDNISolone 125 MG/2 ML Vial IV (19:36)
[2022-01-04] MEDS: DiphenhydrAMINE 50 MG/ML Syringe 25 MG IV (19:36)
--- NOTE | 2022-01-04 19:50 | NURSING ---
Report on pt received, per dayshift [employer] blood transfusion was stopped at 1900.
--- NOTE | 2022-01-04 20:10 | PN.HOSP_ITS ---
Hospitalist Note To the bedside as patient developed acute respiratory distress with respiratory rates in the 40s and hypoxia. Patient had received 1 unit of packed red blood cells and second unit was starting. Suspect transfusion related reaction. Prior to this patient was on 2 L with respiratory rates anywhere from 18-21. Exam reveals markedly tight with few crackles. Chest x-ray reveals what appears to be slightly worsening bilateral infiltrates. Some improvement however patient remained markedly tachypneic and tripoding on BiPAP. We gave her Solu- Medrol 125 mg x 1, famotidine 20 mg x 1, Benadryl 25 mg x 1 as well as a aerosol. Unfortunately, there was no resolution we transfer the AC unit and intubated the patient. The case with critical care/pulmonary medicine.
--- NOTE | 2022-01-04 20:12 | PRO.PCM_ITS ---
Procedure Report Date of Procedure: 01/04/22 ET tube placement Diagnosis: Acute hypoxic respiratory failure Time out: Emergent Medications: Etomidate 20 mg, propofol 70 mg Patient was sedated with the above medications and the vocal cords were visualized with a 3 MAC blade. Patient's cords were anterior and with her kypho sis made it difficult to utilize the glide scope therefore regular Wes blade was utilized for intubation. Grade 2 visualization of the cords was obtained and a 7.0 ET tube was placed. Condensation noted tube, color change with end-tidal CO2, bilateral breath sounds noted. Chest x-ray for placement was ordered and pending. Procedures Hospitalists Procedures: 47113 Insert Emergency Airway
--- NOTE | 2022-01-04 20:27 | NURSING ---
1953: Patient arrives to ICU via bed, on BIPAP in respiratory distress, HR 170's,Respiratory rate 35/min, patient is trying to speak but is too short of breath to do so. Situation explained to patient regarding need to protect airway with intubation. Dr Lynn Hernandez at bedside. Per verbal order of Dr Lynn Hernandez the following meds were given. 1955: 10mg of etomidate given IV. 1956: 10 mg Etomidate given IV. 1957: 40mg Propofol given IV. 2001: 30 mg Propofol given IV. 2003: #7 ET tube placed and noted to be 21cm at the lip. 2004: 30 mg Propofol given IV. 2020: Propofol 50mg given IV.
[2022-01-04] MEDS: Propofol 10MG/Ml 1,000 MG/100 ML Bottle 2.7 MG CONT INF (20:30)
--- NOTE | 2022-01-04 20:30 | RAD_ITS ---
INDICATION: ET tube placement EXAMINATION/TECHNIQUE: X-RAY - XR Chest 1 View COMPARISON: Two prior chest x-rays 01/04/2022. FINDINGS: LINES/DEVICES: Endotracheal tube tip, 4.5 cm from the alyson, well position. Enteric tube follows the expected course of the esophagus with proximal side port below left hemidiaphragm. Distal tube tip below the field of view. LUNGS: Alveolar and interstitial infiltrates with increased lung volumes suggesting emphysematous changes with associated interstitial lung disease or infection. No pleural effusion. No nodule. No pneumothorax. MEDIASTINUM AND CARDIOVASCULAR STRUCTURES: Normal size and contour of the cardiomediastinal silhouette. No evidence of pulmonary vascular congestion. BONES AND SOFT TISSUES: Multiple levels of kyphoplasty. Stent proximal abdominal aorta. RAD/Chest 1 View (Portable) IMPRESSION: 1. Well-positioned endotracheal and enteric tubes. 2. Unchanged alveolar and interstitial infiltrates and increased lung volumes suggesting emphysematous disease with overlying interstitial lung disease and/or infection. Electronically Signed: Xavier Azul DO at 22:20 EDT ,
[2022-01-04 20:41] LABS: Base Excess -6 mmol/L (-2 to +2); Bicarbonate 21.5 mmol/L (22-26); Blood Gas Specimen Type ART; FI02 55; Mode AC; O2 Delivery Device Adult Vent; PEEP 8; PO2 178 mmHG (75-100); RR 16; SITE L Brach; SO2 99 % (95-99); Total Carbon Dioxide 23 mmol/L; Vt 350; pCO2 52.7 mmHg (35-45); pH 7.22 (7.35-7.45)
--- NOTE | 2022-01-04 21:49 | CPS ---
RT was directed by physician to give Duoneb aerosol despite the patient's HR being 166 at this time.
[2022-01-04] MEDS: 0.9% Normal Saline 1,000 ML 75 ML IV (21:58)
[2022-01-04 22:50] LABS: Allen Test Positive; Base Excess -1 mmol/L (-2 to +2); Blood Gas Specimen Type ART; FI02 40; Mode AC; O2 Delivery Device Adult Vent; PEEP 8; PO2 88 mmHG (75-100); RR 16; SITE L Radial; SO2 97 % (95-99); Total Carbon Dioxide 25 mmol/L; Vt 350; pCO2 38.8 mmHg (35-45)
[2022-01-04] MEDS: Chlorhexidine 15 ML PO (23:00)
[2022-01-04] MEDS: Famotidine 200 MG/20 ML MDV 20 MG in 0.9% Normal Saline (Pres. free 8 ML 300 MG IV (23:50)
[2022-01-05] VITALS (36 sets, daily range): BP systolic 85–139; BP diastolic 58–109; PULSE 84–142; RESP 16–30; TEMP 37.4–37.9; O2SAT 90–100
[2022-01-05] MEDS: Ipratropium/Albuterol Sulfate 3 ML AMPUL.NEB INHALATION ×3 (01:18→19:45)
[2022-01-05] MEDS: Propofol 10MG/Ml 1,000 MG/100 ML Bottle 5.4 MG CONT INF (03:49)
[2022-01-05] MEDS: 0.9% Saline Lock 10 ML Syringe IV ×2 (03:49→14:36)
[2022-01-05 03:57] LABS: Absolute Lymphocyte Count 0.15 X10^3/uL (0.83-4.51); Absolute Neutrophil Count 3.8 X10^3/uL (2.0-7.7); Basophil# 0.01 X10^3/uL; Basophil% 0.2 % (0-1); Hematocrit 24.6 % (37-47); Hemoglobin 7.9 g/dL (12.0-15.0); Lymphocyte # 0.15 X10^3/ul (0.83-4.51); Lymphocyte % 3.6 % (19-41); Mean Corp Hgb Conc 32.1 g/dL (32-36); Mean Corpuscular Hgb 32.1 pg (27.0-32.0); Mean Platelet Vol. 12.8 fl (6.2-12.0); Monocyte% 4.8 % (0-10); NRBC Flagged by Analyzer 0 % (0-5); Neutrophil # 3.78 X10^3/uL (2.7-7.7); Neutrophil % 90.7 % (47-70); POSITIVE COUNT YES; POSITIVE DIFFERENTIAL YES; POSITIVE MORPHOLOGY YES; RBC Distribution Width CV 18.9 % (11.6-14.6); Red Blood Count 2.46 M/mm3 (4.2-5.4); White Blood Count 4.2 K/mm3 (4.4-11.0)
[2022-01-05 04:06] LABS: Differential Indicated SCAN CRITERIA MET; Platelet Count 26 K/mm3 (150-450)
[2022-01-05 04:08] LABS: Phosphorus 3.8 mg/dL (2.5-4.9)
[2022-01-05 04:12] LABS: Anisocytosis 1+; Differential Comment SCANNED; Platelet Estimate MKD DEC (ADEQ)
[2022-01-05 04:13] LABS: Macrocytosis RARE; Microcytosis RARE
[2022-01-05 04:25] LABS: ALB/GLOB Ratio 0.6 RATIO (0.9-2.4); AST(SGOT) 155 U/L (15-37); Alanine Aminotransfer ALT/SGPT 104 U/L (13-56); Albumin, Serum 2.2 g/dL (3.2-5.0); Alkaline Phosphatase 321 U/L (45-117); Anion Gap 8 (5-15); BUN 26 mg/dL (7-18); BUN/Creat Ratio 30.4 RATIO (10-20); Calcium,Total 8.1 mg/dL (8.5-10.1); Chloride 110 mmol/L (98-107); Creatinine, Serum 0.85 mg/dL (0.55-1.02); EST Glomerular Filtration Rate 69 mL/min (>60); Est Glom Filt Rate - Afr Amer 84 mL/min (>60); Estimated Creatinine Clearance 42.22 ml/min; Globulin 3.6 g/dL (2.2-4.2); Glucose 172 mg/dL (74-106); Magnesium 2.2 mg/dL (1.6-2.6); Potassium 4.1 mmol/L (3.5-5.1); Protein, Total 5.8 g/dL (6.4-8.2); Sodium Level 140 mmol/L (136-145); Thyroid Stim Hormone (TSH) 0.36 uIU/mL (0.358-3.74)
--- NOTE | 2022-01-05 07:03 | EX.PCM.CONCC ---
Assessment & Plan Assessment/Plan (1) Acute respiratory failure with hypoxia: (2) CHIN (acute kidney injury): (3) Small cell lung cancer: PLAN: Plan RECOMMENDATIONS: 1. Wean PEEP and FiO2 as tolerated 2. Possible spontaneous breathing trial later today 3. Continue home salt tablets for SIADH 4. Hold on further transfusions for now. 5. Defer to hospitalist on involvement with oncology IMPRESSIONS: 1. Acute hypoxic respiratory failure Unclear etiology. Patient reportedly has been diagnosed with pneumonia recently in the setting of advanced small cell lung cancer. Patient has been placed on antibiotics and Solu-Medrol. Patient did have decompensation following blood transfusion, so TRALI versus volume overload would be a suspicion. Patient appears to have responded well to mechanical ventilation. Potentially proceed with a spontaneous breathing trial later today. Cultures are currently pending. Patient will need aggressive pulmonary toileting following extubation. Patient also carries a diagnosis of COPD of unclear severity. Patient is on bronchodilators and systemic steroids. Hold Trelegy for now. 2. 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 Hemoglobin appears to be adequate at this time. Will monitor for bleeding complications. No NSAIDs or aspirin given platelet count. Patient is technically not neutropenic, so we will hold off on cefepime. 3. Acute kidney injury Clinical suspicion for prerenal etiology. Baseline creatinine is approximately 0.3. Patient has been hydrated with improvement in creatinine. We will continue to monitor closely. Electrolytes will be complicated by SIADH. 4. Chronic pain syndrome/osteoporosis/GERD with history of GI bleed/CAD/debility Complicates care, management, recovery and prognosis. Patient is currently on a fentanyl drip. We will have to watch for complications of narcotics given problem #1. Patient does have significant kyphosis with osteoporosis. TIME: 37 minutes critical care time spent addressing patient's acute hypoxic respiratory failure, pancytopenia, acute kidney injury, review of all data and collaboration with care team HPI Consult Data Date of Consult: 01/05/22 HPI Narrative Reason for Consultation: Respiratory failure HPI Narrative: SAPPHIRE LOOMIS is a 71 F, with past medical history listed below, who presents to [facility] on 01/04/2022 secondary to progressive shortness of breath following chemotherapy. Patient reportedly had chemotherapy 2 weeks ago and had had progressive shortness of breath. Patient reported only an occasional cough and no chest pain. Patient did go to an outside facility on the day prior to presentation and had a CAT scan. Patient was diagnosed with a pneumonia at that time and placed on Levaquin and prednisone. On the day of presentation, patient had attempted to use her inhaler, but felt it was ineffective. Patient had noted a temperature of 99.5 ?F, so she came in for evaluation. In the ER, patient was afebrile, but tachypneic at 24 breaths/min. Patient was normotensive and requiring 2 L nasal cannula to maintain saturations. Initial lab work-up showed a white blood cell count of 2.9 with 92% neutrophils, hemoglobin of 6.3 and platelet count of 30. Potassium was low at 3.2 with a creatinine of 1.04. Glucose was slightly elevated at 148 with an alkaline phosphatase of 144, but otherwise chemistries were unremarkable. Chest x-ray showed hyperinflation with chronic interstitial changes. Patient was given antibiotics, Solu-Medrol and admitted to the hospital. Once on the floor, patient was given 2 units of packed red blood cells. Patient tolerated the first unit well, but 5 minutes into the second 1 started to develop worsening shortness of breath. Patient was placed on BiPAP therapy, but failed to respond. Patient was subsequently transferred to the intensive care unit and intubated. Overnight, patient has done okay from a hemodynamic standpoint. FiO2 requirements have slowly improved. Nursing has reported some secretions, but no hemoptysis. No pressors have been required. Patient is currently intubated and sedated and unable to provide review of systems. [facility] Medical History AAA (abdominal aortic aneurysm) CAD (coronary artery disease) COPD exacerbation Heart attack History of GI bleed Kidney stone Lung cancer Osteoporosis SIADH (syndrome of inappropriate ADH production) Tobacco abuse Home Medications atorvastatin 10 mg tablet 10 tab QHS cholesterol 11/13/21 [History Last Taken 1 Month Ago ~12/04/21] fluticasone fur. 100 mcg-umeclid 62.5 mcg-vilant 25 mcg inhalat.powder (Trelegy Ellipta) 1 ea inhalation DAILY breathing treatment 11/13/21 [History Last Taken 01/03/22] sulindac 200 mg tablet 200 tab PO DAILY Check with primary doctor 11/13/21 [History Last Taken 01/02/22] morphine 15 mg tablet,extended release (MS Contin) 15 mg PO BID PAIN 11/14/21 [History Last Taken 01/04/22] sodium chloride 1 gram tablet 1,000 mg PO TID #90 tabs 11/15/21 [Rx Last Taken 01/03/22] albuterol sulfate 90 mcg/actuation aerosol inhaler 2 inh inhalation Q4H PRN SOB 01/04/22 [History Last Taken 01/04/22] alendronate 70 mg tablet 70 mg PO SOLIS BONES 01/04/22 [History Last Taken 01/02/22] aspirin 325 mg tablet 325 mg PO DAILY 01/04/22 [History Last Taken 01/02/22] levofloxacin 750 mg tablet 750 mg PO DAILY 01/04/22 [History Last Taken 01/04/22] loratadine 10 mg tablet (Claritin) 10 mg PO DAILY 01/04/22 [History Last Taken 01/04/22] magnesium oxide 400 mg (241.3 mg magnesium) tablet 400 mg PO DAILY SUPPLEMENT 01/04/22 [History Last Taken 01/03/22] oxycodone-acetaminophen 10 mg-325 mg tablet (Percocet) 1 tab PO Q6H PRN Pain 01/04/22 [History Last Taken 01/03/22] pantoprazole 40 mg tablet,delayed release 40 mg PO DAILY PRN GERD 01/04/22 [History Last Taken Unknown] potassium chloride 20 mEq tablet,extended release 20 meq PO BID 01/04/22 [History Last Taken 01/03/22] prednisone 50 mg tablet 50 mg PO DAILY 01/04/22 [History Last Taken 01/04/22] sucralfate 100 mg/mL oral suspension 10 ml PO 4X/DAY PRN GERD 01/04/22 [History Last Taken Unknown] Allergy/AdvReac Type Severity Reaction Status Date / Time latex Allergy Rash Verified 11/13/21 14:30 Penicillins Allergy Anaphylaxis Verified 11/13/21 14:30 succinylcholine Allergy Anaphylaxis Verified 11/13/21 18:56 aspirin [ASA] AdvReac Upset Verified 11/13/21 18:55 Stomach Family History Other CAD (coronary artery disease) Heart disease Hypertension Surgical History S/P AAA repair Social History Smoking Status: Former smoker alcohol intake: never substance use type: does not use ROS Review of Systems ROS Unobtainable: due to endotracheal tube and due to mental status Physical Exam Const no apparent distress Constitutional Narrative: Intubated and sedated. Good vent synchrony noted. General Appearance: cooperative and patient mechanically ventilated HEENT normocephalic, head/scalp atraumatic and moist oral mucous membranes HEENT Narrative: Edentulous, Mallampati 1-2, no thrush Eyes PERRL, EOMs intact bilaterally, conjunctivae normal and no scleral icterus Neck no lymphadenopathy, supple, no JVD and no carotid bruits Neck Narrative: Trachea midline, no thyroid enlargement Resp no retractions and no use of accessory muscles Auscultation: rales and diminished lung sounds; Negative for rhonchi or wheezes Cardio regular rate, regular rhythm, S1 normal heart sound, S2 normal heart sound, no murmurs, no rub, no gallops, no clicks and no JVD GI normal to inspection, nondistended, normoactive bowel sounds, soft to palpation, non-tender and non-distended Extremity no clubbing, cyanosis or edema Skin no rashes or lesions noted, no wounds, skin turgor normal, no jaundice, no petechiae and no mottling Skin Narrative: Scattered ecchymosis but no wounds noted erythematous patch on posterior aspect of right chest wall Hair: total alopecia Neuro oriented x3, CN's II-XII intact bilaterally, moves all extremities and no focal motor deficits Neuro Narrative: Generalized weakness noted Sensorium / Orientation: awake, alert, oriented to person, oriented to place and oriented to time Speech: speech normal Psych Psych Narrative: RASS -2 Mood & Affect: flat affect Lab / Micro Data Attestation: I reviewed the patient's lab results. Result Diagrams: 01/05/22 03:44 01/05/22 03:44 Labs: Laboratory Results - last 24 hr 01/04/22 10:23: WBC 2.9 L, RBC 1.90 L, Hgb 6.3 L, Hct 19.9 L, MCV 104.7 H, MCH 33.2 H, MCHC 31.7 L, RDW Std Deviation 63.6 H, RDW Coeff of Surinder 16.7 H, Plt Count 30 L*, MPV 10.8, Immature Gran % (Auto) 1.400 H, Neut % (Auto) 92.8 H, Lymph % (Auto) 2.4 L, Mcmullen % (Auto) 3.1, Eos % (Auto) 0.0, Baso % (Auto) 0.3, Absolute Neuts (auto) 2.7, Absolute Lymphs (auto) 0.07 L, Nucleated RBC % 0, Differential Comment COMMENT, Diff Path Review September luis, Platelet Estimate MKD 01/04/22 10:23: Sodium 142, Potassium 3.2 L, Chloride 109 H, Carbon Dioxide 26.0, Anion Gap 7, BUN 18, Creatinine 1.04 H, Estim Creat Clear Calc 35.66, Est GFR (MDRD) Af Amer 67, Est GFR (MDRD) Non-Af 55 L, BUN/Creatinine Ratio 17.3, Glucose 148 H, Calcium 8.7, Total Bilirubin 0.50, AST 18, ALT 18, Alkaline Phosphatase 144 H, Total Protein 5.9 L, Albumin 2.3 L, Globulin 3.6, Albumin/Globulin Ratio 0.6 L 01/04/22 13:00: Blood Type O POSITIVE, Antibody Screen NEGATIVE, Crossmatch See Detail 01/04/22 15:05: MRSA (PCR) Negative 01/05/22 03:44: WBC 4.2 L, RBC 2.46 L, Hgb 7.9 L, Hct 24.6 L, MCV 100.0 H, MCH 32.1 H, MCHC 32.1, RDW Std Deviation 69.0 H, RDW Coeff of Surinder 18.9 H, Plt Count 26 L*, MPV 12.8 H, Immature Gran % (Auto) 0.700, Neut % (Auto) 90.7 H, Lymph % (Auto) 3.6 L, Mcmullen % (Auto) 4.8, Eos % (Auto) 0.0, Baso % (Auto) 0.2, Absolute Neuts (auto) 3.8, Absolute Lymphs (auto) 0.15 L, Nucleated RBC % 0, Differential Comment SCANNED, Diff Path Review September luis, Platelet Estimate MKD DEC, Anisocytosis 1+, Microcytosis RARE, Macrocytosis RARE 01/05/22 03:44: Sodium 140, Potassium 4.1, Chloride 110 H, Carbon Dioxide 22.0, Anion Gap 8, BUN 26 H, Creatinine 0.85, Estim Creat Clear Calc 42.22, Est GFR (MDRD) Af Amer 84, Est GFR (MDRD) Non-Af 69, BUN/Creatinine Ratio 30.4 H, Glucose 172 H, Calcium 8.1 L, Magnesium 2.2, Total Bilirubin 1.50 H, AST 155 H, ALT 104 H, Alkaline Phosphatase 321 H, Total Protein 5.8 L, Albumin 2.2 L, Globulin 3.6, Albumin/Globulin Ratio 0.6 L, TSH 0.36 01/05/22 03:44: Phosphorus 3.8 Micro: Microbiology 01/04/22 21:50 Urine Catheter - Bailey Legionella Antigen - Final 01/04/22 21:50 Urine Catheter - Bailey Streptococcus pneumoniae Antigen (M - Final 01/04/22 14:45 Mucosa - Nasopharyngeal Respiratory Panel (PCR) - Final ABG Data ABG results: ABG 01/04/22 01/04/22 20:33 22:18 Specimen Type ART ART Sample Site L Brach L Radial pH 7.22 L 7.40 Bicarbonate Actual 21.5 L 24.0 Total CO2 23 25 Base Excess -6 L -1 O2 Saturation 99 97 O2 % 55 40 ABG pCO2 52.7 H 38.8 ABG pO2 178 H 88 Jorge Test N/A Positive Respiration Rate 16 16 O2 Delivery Device Adult Vent Adult Vent Vent Mode AC AC Tidal Volume 350 350 POC PEEP 8 8 Radiology Impression Chest X-Ray 01/04/22 09:43 IMPRESSION: COPD changes and chronic interstitial changes seen, recommend clinical correlation for interstitial pneumonia no evidence of focal lung consolidation Electronically Signed: Héctor Noe MD at 10:48 EDT , Chest X-Ray 01/04/22 19:06 IMPRESSION: Progressive interstitial pneumonitis. Progressive alveolar infiltrate medial right apex. Mass cannot be excluded at this site. Prior kyphoplasty is at multiple levels detailed above. Electronically Signed: Yassine Johnson MD, CALEB at 19:23 EDT , Chest X-Ray 01/04/22 20:30 IMPRESSION: 1. Well-positioned endotracheal and enteric tubes. 2. Unchanged alveolar and interstitial infiltrates and increased lung volumes suggesting emphysematous disease with overlying interstitial lung disease and/or infection. Electronically Signed: Xavier Azul DO at 22:20 EDT , Charges/Coding Procedures Hospitalists Procedures: [id number] Critial Care 1st Hr
[2022-01-05 08:04] LABS: Color, Urine- Transfusion RXN Yellow (Yellow)
[2022-01-05 08:05] LABS: Occult Blood-Urine Supernatant Negative (Negative)
[2022-01-05 08:08] LABS: TXN RXN Red Blood Cells-Urine 0-5 SEEN /hpf
--- NOTE | 2022-01-05 09:24 | CPS ---
Placed on breathing trial per Dr. Pineda.
[2022-01-05] MEDS: 0.9% Normal Saline 1,000 ML 75 ML IV (10:07)
[2022-01-05] MEDS: Potassium Chloride Oral Tablet 20 MEQ GT ×2 (10:34→22:40)
[2022-01-05] MEDS: Chlorhexidine 15 ML PO ×2 (10:34→22:39)
[2022-01-05] MEDS: Loratadine 10 MG Tablet GT (10:39)
[2022-01-05] MEDS: Magnesium Chloride 64 MG Delay Rel.Tablet 128 MG PO (10:40)
--- NOTE | 2022-01-05 10:45 | CASEMGMT ---
RN CM Face to Face with for initial transition planning/care coordination assessment as patient is currently intubated. RN CM introduced self and role at [facility]. , Ezio, willing to participate in assessment and is able to answer all questions appropriately. Care providers, pharmacy, and demographics verified. CM to monitor patient's course of treatment and progress with therapy for disposition needs. Ezio states he has no further needs or concerns at this time. CM to follow for discharge planning needs that may arise. PCP: Torey Specialists: Chelle, oncologist; Jaycee, emblem drawer in, [facility] Preferred Pharmacy: [facility]; [facility] retail at discharge Insurance: [employer] Prescription Benefit: yes Living Will/HPOA: none LNOK: Living Arrangements: Patient lives with in a split level home with 6 steps and railing to enter the home. Patient was independent and able to ambulate stairs. Transportation: self, DME/HHC: Patient has shower chair, grab bars, walker, and wheelchair at home. No previous HHC or SNF. Disposition Plan: TBD by course of treatment and progress with therapy. Carmen VALENTINE, RN, CM
[2022-01-05 11:53] LABS: Pathologist Review Reviewed
[2022-01-05 12:00] LABS: Pathologist Review Reviewed
--- NOTE | 2022-01-05 14:22 | PN.HOSP_ITS ---
Subjective Subjective Patient was seen and examined today, I talked with her who was in the room at the time of my examination. She remains on the vent at this time, they have attempted to wean her from the vent but the patient becomes very anxious and tachycardic, at the time of my visit this morning she was being placed on Pr ecedex. Objective Data Objective Data Vital Signs: Vital Signs Temp Pulse Resp BP Pulse Ox O2 Del Method O2 Flow Rate 100.2 F H 108 H 22 H 86/64 L 99 Mechanical Ventilator 2 01/05/22 13:00 01/05/22 13:51 01/05/22 13:51 01/05/22 13:00 01/05/22 13:51 01/05/22 13:00 01/04/22 18:40 FiO2 25 01/05/22 13:51 Oxygen Flow Rate (L/min) 2 Oxygen Delivery Method Mechanical Ventilator Weight: 44.8 kg Body Mass Index (BMI) 21.3 Intake & Output: Intake and Output for Last 24 Hours 01/03/22 01/04/22 01/05/22 23:59 23:59 23:59 Intake Total 1052.37 / 1058.87 1086.77 / 1086.77 Output Total 575 / 575 Balance 1052.37 / 1058.87 511.77 / 511.77 Medical Nutrition Assessment Dietitian: Malnutrition Criteria Met Start: 01/05/22 09:45 Freq: Status: Active Protocol: Document 01/05/22 09:25 AG (Rec: 01/05/22 09:45 [id number]) Nutrition Malnutrition Evidence of Malnutrition Exists Yes Malnutrition (moderate): Chronic Evidenced By Suboptimal Energy Intake ( Moderate),Physical Changes ( Moderate) Clinical Problem Chronic Disease or Condition Related Malnutrition Etiology moderate, chronic malnutrition related to inadequate energy intake w/ increased energy needs d/t cancer Signs/Symptoms as evidenced by estimated PO intake meeting <75% of estimated energy needs x 3 months; obvious, moderate muscle wasting/fat loss noted in clavicles, orbital, temporal, acromion areas. Status Active Problem Recommendation Dietitian Recommendations/Changes when medically appropriate, recommend regular diet w/ 1250mL fluid restriction as indicated; will provide appropriate ONS when diet advanced. If pt to remain intubated- recommend enteral nutrition support. Lab / Micro Data Result Diagrams: 01/05/22 03:44 01/05/22 03:44 Labs: Laboratory Results - last 24 hr 01/04/22 10:23: Diff Path Review Reviewed 01/04/22 13:00: Blood Type O POSITIVE, Antibody Screen NEGATIVE, Crossmatch See Detail 01/04/22 15:05: MRSA (PCR) Negative 01/05/22 03:44: WBC 4.2 L, RBC 2.46 L, Hgb 7.9 L, Hct 24.6 L, MCV 100.0 H, MCH 32.1 H, MCHC 32.1, RDW Std Deviation 69.0 H, RDW Coeff of Surinder 18.9 H, Plt Count 26 L*, MPV 12.8 H, Immature Gran % (Auto) 0.700, Neut % (Auto) 90.7 H, Lymph % (Auto) 3.6 L, [place] % (Auto) 4.8, Eos % (Auto) 0.0, Baso % (Auto) 0.2, Absolute Neuts (auto) 3.8, Absolute Lymphs (auto) 0.15 L, Nucleated RBC % 0, Differential Comment SCANNED, Diff Path Review Reviewed, Platelet Estimate MKD DEC, Anisocytosis 1+, Microcytosis RARE, Macrocytosis RARE 01/05/22 03:44: Sodium 140, Potassium 4.1, Chloride 110 H, Carbon Dioxide 22.0, Anion Gap 8, BUN 26 H, Creatinine 0.85, Estim Creat Clear Calc 42.22, Est GFR (MDRD) Af Amer 84, Est GFR (MDRD) Non-Af 69, BUN/Creatinine Ratio 30.4 H, Glucose 172 H, Calcium 8.1 L, Magnesium 2.2, Total Bilirubin 1.50 H, AST 155 H, ALT 104 H, Alkaline Phosphatase 321 H, Total Protein 5.8 L, Albumin 2.2 L, Globulin 3.6, Albumin/Globulin Ratio 0.6 L, TSH 0.36 01/05/22 03:44: Phosphorus 3.8 Micro: Microbiology 01/04/22 20:30 Sputum, Tracheal Aspirate Gram Stain - Final 01/04/22 21:50 Urine Catheter - Bailey Legionella Antigen - Final 01/04/22 21:50 Urine Catheter - Bailey Streptococcus pneumoniae Antigen (M - Final 01/04/22 14:45 Mucosa - Nasopharyngeal Respiratory Panel (PCR) - Final ABG Data ABG results: ABG 01/04/22 01/04/22 20:33 22:18 Specimen Type ART ART Sample Site L Brach L Radial pH 7.22 L 7.40 Bicarbonate Actual 21.5 L 24.0 Total CO2 23 25 Base Excess -6 L -1 O2 Saturation 99 97 O2 % 55 40 ABG pCO2 52.7 H 38.8 ABG pO2 178 H 88 Jorge Test N/A Positive Respiration Rate 16 16 O2 Delivery Device Adult Vent Adult Vent Vent Mode AC AC Tidal Volume 350 350 POC PEEP 8 8 Radiography Diagnostic Testing: Radiology Impression Chest X-Ray 01/04/22 19:06 IMPRESSION: Progressive interstitial pneumonitis. Progressive alveolar infiltrate medial right apex. Mass cannot be excluded at this site. Prior kyphoplasty is at multiple levels detailed above. Electronically Signed: Yassine Johnson MD, CALEB at 19:23 EDT , Chest X-Ray 01/04/22 20:30 IMPRESSION: 1. Well-positioned endotracheal and enteric tubes. 2. Unchanged alveolar and interstitial infiltrates and increased lung volumes suggesting emphysematous disease with overlying interstitial lung disease and/or infection. Electronically Signed: Xavier Azul DO at 22:20 EDT , Physical Exam Const alert and no apparent distress Constitutional Narrative: Patient is lightly sedated and on the ventilator at this time, she appears frail and unwell General Appearance: cooperative HEENT normocephalic, head/scalp atraumatic and moist oral mucous membranes Eyes PERRL, EOMs intact bilaterally and conjunctivae normal Neck supple, no JVD, thyroid normal and no carotid bruits General: trachea midline Resp normal respiratory effort, no retractions, no use of accessory muscles and clear to auscultation bilaterally Auscultation: Negative for rales, rhonchi or wheezes Cardio regular rate, regular rhythm, S1 normal heart sound, S2 normal heart sound, no murmurs, no rub and no gallops GI normal to inspection, nondistended, normoactive bowel sounds, soft to palpation, non-tender and non-distended Extremity normal to inspection and no clubbing, cyanosis or edema Skin no rashes or lesions noted General Skin Exam: no breakdown Neuro oriented x3, CN's II-XII intact bilaterally, moves all extremities, no focal motor deficits and no sensory deficits noted Sensorium / Orientation: awake Psych Psych Narrative: Patient is lightly sedated on the ventilator at this time Assessment & Plan Assessment/Plan (1) Acute respiratory failure with hypoxia: PLAN: Plan 1. Acute hypoxic respiratory failure-etiology is unclear at this time, it may have been related to her blood transfusion that she received yesterday. Pulmonary medicine is participating in her care and ventilator settings. #2 pancytopenia secondary to chemotherapy for small cell lung cancer-labs will be monitored, patient's hemoglobin today was 7.9. Platelet count was 26,000, white blood cell count was 4200. #3 small cell lung cancer-complicates care, management, recovery, and prognosis #4 moderate protein and caloric malnutrition-as evidenced by estimated p.o. intake meeting less than 75% of estimated energy needs x3 months, obvious, moderate muscle wasting/fat loss noted in the clavicles, orbital areas, temporal areas, acromion areas-if medically appropriate, regular diet with 1250 mL fluid restriction is indicated, nutritional services will provide appropriate oral nutritional supplementation with diet advanced. Enteral feeding is recommended if the patient remains intubated. #5 dehydration-patient's creatinine today is 0.85, creatinine on admission was 1.04. Labs will be monitored #6 hypokalemia-corrected at this time, labs will be monitored #7 chronic obstructive pulmonary disease-complicates care, management, recovery, and prognosis 8. Coronary artery disease-stable at this time Charges/Coding Visit Charges Inpatient E&M: 28323 Subs Hosp L2
[2022-01-05] MEDS: Sodium Chloride 1 GM Tablet PO (14:36)
[2022-01-05] MEDS: Atorvastatin Calcium 10 MG Tablet GT (22:41)
[2022-01-06] VITALS (38 sets, daily range): BP systolic 86–127; BP diastolic 58–86; PULSE 86–150; RESP 12–30; TEMP 36.5–37.9; O2SAT 93–100
[2022-01-06] MEDS: Ipratropium/Albuterol Sulfate 3 ML AMPUL.NEB INHALATION ×5 (01:30→23:55)
[2022-01-06 03:46] LABS: Absolute Lymphocyte Count 0.18 X10^3/uL (0.83-4.51); Absolute Neutrophil Count 2.9 X10^3/uL (2.0-7.7); Hematocrit 22.6 % (37-47); Hemoglobin 7.2 g/dL (12.0-15.0); Lymphocyte # 0.18 X10^3/ul (0.83-4.51); Lymphocyte % 5.4 % (19-41); Mean Corp Hgb Conc 31.9 g/dL (32-36); Mean Corpuscular Volume 100.4 fL (81-99); Mean Platelet Vol. 11.9 fl (6.2-12.0); Monocyte# 0.23 X10^3/uL; Monocyte% 6.8 % (0-10); NRBC Flagged by Analyzer 0 % (0-5); Neutrophil # 2.91 X10^3/uL (2.7-7.7); Neutrophil % 86.6 % (47-70); POSITIVE COUNT YES; POSITIVE DIFFERENTIAL YES; POSITIVE MORPHOLOGY YES; RBC Distribution Width CV 18.6 % (11.6-14.6); RBC Distribution Width SD 67.8 fl (35.1-43.9); Red Blood Count 2.25 M/mm3 (4.2-5.4); White Blood Count 3.4 K/mm3 (4.4-11.0)
[2022-01-06 03:53] LABS: Anion Gap 6 (5-15); BUN 32 mg/dL (7-18); BUN/Creat Ratio 47.5 RATIO (10-20); Calcium,Total 8.4 mg/dL (8.5-10.1); Chloride 112 mmol/L (98-107); Creatinine, Serum 0.67 mg/dL (0.55-1.02); EST Glomerular Filtration Rate 91 mL/min (>60); Est Glom Filt Rate - Afr Amer 110 mL/min (>60); Estimated Creatinine Clearance 35.96 ml/min; Glucose 144 mg/dL (74-106); Potassium 4.2 mmol/L (3.5-5.1); Sodium Level 142 mmol/L (136-145)
[2022-01-06 03:58] LABS: Differential Indicated SCAN CRITERIA MET; Platelet Count 23 K/mm3 (150-450)
[2022-01-06 04:06] LABS: Anisocytosis 1+; Differential Comment SCANNED; Hypochromasia 1+; Macrocytosis RARE; Microcytosis RARE; Platelet Estimate MKD DEC (ADEQ)
[2022-01-06 05:41] LABS: Allen Test Positive; Base Excess 0 mmol/L (-2 to +2); Bicarbonate 23.1 mmol/L (22-26); Blood Gas Specimen Type ART; FI02 30; Mode CPAP/PS; O2 Delivery Device Adult Vent; PEEP 5; PO2 103 mmHG (75-100); PS 5; SITE L Radial; SO2 98 % (95-99); Total Carbon Dioxide 24 mmol/L; pCO2 30.7 mmHg (35-45); pH 7.48 (7.35-7.45)
--- NOTE | 2022-01-06 06:03 | PCM.PN.INT ---
Assessment & Plan Assessment/Plan (1) Acute respiratory failure with hypoxia: (2) CHIN (acute kidney injury): (3) Small cell lung cancer: PLAN: Plan RECOMMENDATIONS: 1. Okay to proceed with extubation 2. Bedside swallow evaluation and then reinitiation of baseline pain medications 3. Continue home salt tablets for SIADH 4. Hold on further transfusions for now. Possibly need transfusions tomorrow 5. Defer to hospitalist on involvement with oncology IMPRESSIONS: 1. Acute hypoxic respiratory failure Unclear etiology. Patient reportedly has been diagnosed with pneumonia recently in the setting of advanced small cell lung cancer. Patient has been placed on antibiotics and Solu-Medrol. Patient did have decompensation following blood transfusion, so TRALI versus volume overload would be a suspicion. Given improvement in respiratory status in less than 24 hours, this would be consistent with TRALI versus fluid overload. Patient appears to be doing well at this time. We will proceed with extubation. Monitor patient in the intensive care unit through the morning. Potential transfer later today. 2. 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 Hemoglobin appears to be adequate at this time. Cannot exclude the need for repeat transfusion tomorrow. Will monitor for bleeding complications. No NSAIDs or aspirin given platelet count. Potentially discontinue antibiotics after 48 hours if cultures negative 3. Acute kidney injury Improving. Clinical suspicion for prerenal etiology. Baseline creatinine is approximately 0.3. Patient has been hydrated with improvement in creatinine. We will continue to monitor closely. Electrolytes will be complicated by SIADH. 4. Chronic pain syndrome/osteoporosis/GERD with history of GI bleed/CAD/debility Complicates care, management, recovery and prognosis. Patient is currently on a fentanyl drip. We will have to watch for complications of narcotics given problem #1. Patient does have significant kyphosis with osteoporosis. TIME: 32 minutes critical care time spent addressing patient's acute hypoxic respiratory failure, pancytopenia, acute kidney injury, review of all data and collaboration with care team Subjective Subjective Patient did okay overnight. Nursing did report patient had significant difficulty with oral care and tachycardia. However, patient was able to tolerate a spontaneous breathing trial this morning. Objective Data Objective Data Vital Signs: Vital Signs Temp Pulse Resp BP Pulse Ox O2 Del Method O2 Flow Rate 37.6 C H 104 H 17 110/73 95 Nasal Cannula 2 01/06/22 06:00 01/06/22 06:00 01/06/22 06:00 01/06/22 06:00 01/06/22 06:00 01/06/22 06:00 01/06/22 06:00 FiO2 30 01/06/22 05:00 Oxygen Flow Rate (L/min) 2 Oxygen Delivery Method Nasal Cannula Weight: 44.9 kg Body Mass Index (BMI) 21.3 Intake & Output: Intake and Output for Last 24 Hours 01/04/22 01/05/22 01/06/22 23:59 23:59 23:59 Intake Total 1102.37 / 1108.87 2308.98 / 2422.98 281.50 / 281.50 Output Total 795 / 995 550 / 550 Balance 1102.37 / 1108.87 1513.98 / 1427.98 -268.50 / -268.50 Medical Nutrition Assessment Dietitian: Malnutrition Criteria Met Start: 01/05/22 09:45 Freq: Status: Active Protocol: Document 01/05/22 09:25 AG (Rec: 01/05/22 09:45 [id number]) Nutrition Malnutrition Evidence of Malnutrition Exists Yes Malnutrition (moderate): Chronic Evidenced By Suboptimal Energy Intake ( Moderate),Physical Changes ( Moderate) Clinical Problem Chronic Disease or Condition Related Malnutrition Etiology moderate, chronic malnutrition related to inadequate energy intake w/ increased energy needs d/t cancer Signs/Symptoms as evidenced by estimated PO intake meeting <75% of estimated energy needs x 3 months; obvious, moderate muscle wasting/fat loss noted in clavicles, orbital, temporal, acromion areas. Status Active Problem Recommendation Dietitian Recommendations/Changes when medically appropriate, recommend regular diet w/ 1250mL fluid restriction as indicated; will provide appropriate ONS when diet advanced. If pt to remain intubated- recommend enteral nutrition support. Lab / Micro Data Attestation: I reviewed the patient's lab results. Result Diagrams: 01/06/22 03:30 01/06/22 03:30 Labs: Laboratory Results - last 24 hr 01/04/22 10:23: Diff Path Review Reviewed 01/04/22 13:00: Crossmatch See Detail 01/05/22 03:44: Diff Path Review Reviewed 01/06/22 03:30: WBC 3.4 L, RBC 2.25 L, Hgb 7.2 L, Hct 22.6 L, MCV 100.4 H, MCH 32.0, MCHC 31.9 L, RDW Std Deviation 67.8 H, RDW Coeff of Surinder 18.6 H, Plt Count 23 L*, MPV 11.9, Immature Gran % (Auto) 1.200 H, Neut % (Auto) 86.6 H, Lymph % (Auto) 5.4 L, [place] % (Auto) 6.8, Eos % (Auto) 0.0, Baso % (Auto) 0.0, Absolute Neuts (auto) 2.9, Absolute Lymphs (auto) 0.18 L, Nucleated RBC % 0, Differential Comment SCANNED, Diff Path Review September foll, Platelet Estimate MKD DEC, Hypochromasia 1+, Anisocytosis 1+, Microcytosis RARE, Macrocytosis RARE 01/06/22 03:30: Sodium 142, Potassium 4.2, Chloride 112 H, Carbon Dioxide 24.0, Anion Gap 6, BUN 32 H, Creatinine 0.67, Estim Creat Clear Calc 35.96, Est GFR (MDRD) Af Amer 110, Est GFR (MDRD) Non-Af 91, BUN/Creatinine Ratio 47.5 H, Glucose 144 H, Calcium 8.4 L Micro: Microbiology 01/04/22 20:30 Sputum, Tracheal Aspirate Gram Stain - Final 01/04/22 21:50 Urine Catheter - Bailey Legionella Antigen - Final 01/04/22 21:50 Urine Catheter - Bailey Streptococcus pneumoniae Antigen (M - Final 01/04/22 14:45 Mucosa - Nasopharyngeal Respiratory Panel (PCR) - Final ABG Data ABG results: ABG 01/06/22 05:36 Specimen Type ART Sample Site L Radial pH 7.48 H Bicarbonate Actual 23.1 Total CO2 24 Base Excess 0 O2 Saturation 98 O2 % 30 ABG pCO2 30.7 L ABG pO2 103 H Jorge Test Positive O2 Delivery Device Adult Vent Vent Mode CPAP/PS POC PEEP 5 POC Pressure Suppt 5 Physical Exam Const no apparent distress Constitutional Narrative: Intubated. Comfortable on spontaneous breathing trial General Appearance: cooperative and patient mechanically ventilated HEENT normocephalic, head/scalp atraumatic and moist oral mucous membranes Eyes PERRL, EOMs intact bilaterally, conjunctivae normal and no scleral icterus Neck no lymphadenopathy, supple, no JVD and no carotid bruits Neck Narrative: Trachea midline, no thyroid enlargement Resp no retractions and no use of accessory muscles Resp Narrative: No stridor postextubation Auscultation: rales and diminished lung sounds; Negative for rhonchi or wheezes Cardio regular rate, regular rhythm, S1 normal heart sound, S2 normal heart sound, no murmurs, no rub, no gallops, no clicks and no JVD GI normal to inspection, nondistended, normoactive bowel sounds, soft to palpation, non-tender and non-distended Extremity no clubbing, cyanosis or edema Skin no rashes or lesions noted, no wounds, skin turgor normal, no jaundice, no petechiae and no mottling Skin Narrative: Scattered ecchymosis but no wounds noted erythematous patch on posterior aspect of right chest wall Hair: total alopecia Neuro CN's II-XII intact bilaterally, moves all extremities and no focal motor deficits Neuro Narrative: Generalized weakness noted Sensorium / Orientation: awake and alert Speech: speech normal Psych Psych Narrative: RASS 0 Mood & Affect: flat affect Charges/Coding Procedures Hospitalists Procedures: 10087 Critial Care 1st Hr
[2022-01-06] MEDS: fentaNYL 100 MCG/2 ML Ampul 50 MCG IV (06:10)
[2022-01-06] MEDS: 0.9% Saline Lock 10 ML Syringe IV ×4 (06:38→23:55)
[2022-01-06 08:51] LABS: Pathologist Review Reviewed
[2022-01-06] MEDS: morphine SR 15 MG Tablet PO ×2 (10:13→21:17)
[2022-01-06] MEDS: Loratadine 10 MG Tablet GT (10:13)
[2022-01-06] MEDS: Magnesium Chloride 64 MG Delay Rel.Tablet 128 MG PO (10:13)
[2022-01-06] MEDS: Potassium Chloride Oral Tablet 20 MEQ GT ×2 (10:13→21:16)
[2022-01-06] MEDS: guaiFENesin 1,200 MG Tablet 1200 MG PO ×2 (10:14→21:17)
[2022-01-06] MEDS: levoFLOXacin 750 MG Tablet PO (10:24)
[2022-01-06] MEDS: Acetaminophen 325 MG Tablet 650 MG PO ×2 (10:47→17:14)
[2022-01-06] MEDS: oxyCODONE 5 MG Tablet 10 MG PO ×2 (10:47→17:13)
[2022-01-06] MEDS: Sodium Chloride 1 GM Tablet PO ×2 (12:42→21:17)
[2022-01-06] MEDS: predniSONE 20 MG Tablet 40 MG PO (12:42)
--- NOTE | 2022-01-06 12:44 | PCM.PN.HOSP ---
Subjective Subjective Patient was seen and examined today, she has been extubated and she is on nasal cannula oxygen at 2 L. I talked briefly with pulmonary medicine about her care. Patient CBC today shows a continued pancytopenia, patient's hemoglobin appears stable at 7.2. Patient has no complaints of any shortness of breath at rest during the time of my examination although she does appear to be moderately anxious. Objective Data Objective Data Vital Signs: Vital Signs Temp Pulse Resp BP Pulse Ox O2 Del Method O2 Flow Rate 99.9 F H 111 H 16 116/77 96 Nasal Cannula 2 01/06/22 12:00 01/06/22 12:00 01/06/22 12:00 01/06/22 12:00 01/06/22 12:00 01/06/22 12:00 01/06/22 12:00 FiO2 30 01/06/22 05:00 Oxygen Flow Rate (L/min) 2 Oxygen Delivery Method Nasal Cannula Weight: 44.9 kg Body Mass Index (BMI) 21.3 Intake & Output: Intake and Output for Last 24 Hours 01/04/22 01/05/22 01/06/22 23:59 23:59 23:59 Intake Total 1102.37 / 1108.87 2308.98 / 2422.98 691.67 / 691.67 Output Total 795 / 995 875 / 875 Balance 1102.37 / 1108.87 1513.98 / 1427.98 -183.33 / -183.33 Medical Nutrition Assessment Dietitian: Malnutrition Criteria Met Start: 01/05/22 09:45 Freq: Status: Active Protocol: Document 01/06/22 10:23 (Rec: 01/06/22 10:24 [id number]) Nutrition Malnutrition Evidence of Malnutrition Exists Yes Malnutrition (moderate): Chronic Evidenced By Suboptimal Energy Intake ( Moderate),Physical Changes ( Moderate) Clinical Problem Chronic Disease or Condition Related Malnutrition Etiology moderate, chronic malnutrition related to inadequate energy intake w/ increased energy needs d/t cancer Signs/Symptoms as evidenced by estimated PO intake meeting <75% of estimated energy needs x 3 months; obvious, moderate muscle wasting/fat loss noted in clavicles, orbital, temporal, acromion areas. Status Active Problem Recommendation Dietitian Recommendations/Changes Continue Regular diet with 2000mL fluid restriction per MD. Will reassess need for ONS at follow-up. Lab / Micro Data Result Diagrams: 01/06/22 03:30 01/06/22 03:30 Labs: Laboratory Results - last 24 hr 01/04/22 13:00: Crossmatch See Detail 01/06/22 03:30: WBC 3.4 L, RBC 2.25 L, Hgb 7.2 L, Hct 22.6 L, MCV 100.4 H, MCH 32.0, MCHC 31.9 L, RDW Std Deviation 67.8 H, RDW Coeff of Surinder 18.6 H, Plt Count 23 L*, MPV 11.9, Immature Gran % (Auto) 1.200 H, Neut % (Auto) 86.6 H, Lymph % (Auto) 5.4 L, [place] % (Auto) 6.8, Eos % (Auto) 0.0, Baso % (Auto) 0.0, Absolute Neuts (auto) 2.9, Absolute Lymphs (auto) 0.18 L, Nucleated RBC % 0, Differential Comment SCANNED, Diff Path Review Reviewed, Platelet Estimate MKD DEC, Hypochromasia 1+, Anisocytosis 1+, Microcytosis RARE, Macrocytosis RARE 01/06/22 03:30: Sodium 142, Potassium 4.2, Chloride 112 H, Carbon Dioxide 24.0, Anion Gap 6, BUN 32 H, Creatinine 0.67, Estim Creat Clear Calc 35.96, Est GFR (MDRD) Af Amer 110, Est GFR (MDRD) Non-Af 91, BUN/Creatinine Ratio 47.5 H, Glucose 144 H, Calcium 8.4 L Micro: Microbiology 01/04/22 20:30 Sputum, Tracheal Aspirate Gram Stain - Final 01/04/22 20:30 Sputum, Tracheal Aspirate Respiratory Culture - Preliminary Presumptive C albicans 01/04/22 21:50 Urine Catheter - Bailey Legionella Antigen - Final 01/04/22 21:50 Urine Catheter - Bailey Streptococcus pneumoniae Antigen (M - Final 01/04/22 14:45 Mucosa - Nasopharyngeal Respiratory Panel (PCR) - Final ABG Data ABG results: ABG 01/06/22 05:36 Specimen Type ART Sample Site L Radial pH 7.48 H Bicarbonate Actual 23.1 Total CO2 24 Base Excess 0 O2 Saturation 98 O2 % 30 ABG pCO2 30.7 L ABG pO2 103 H Jorge Test Positive O2 Delivery Device Adult Vent Vent Mode CPAP/PS POC PEEP 5 POC Pressure Suppt 5 Physical Exam Narrative alert and no apparent distress Constitutional Narrative: Patient is alert and appropriate. Patient appears frail and cachectic. HEENT normocephalic, head/scalp atraumatic and moist oral mucous membranes Eyes PERRL, EOMs intact bilaterally and conjunctivae normal Neck supple, no JVD, thyroid normal and no carotid bruits General: trachea midline Resp normal respiratory effort, no retractions, no use of accessory muscles, scattered expiratory wheezes are noted bilaterally Cardio regular rate, regular rhythm, S1 normal heart sound, S2 normal heart sound, no murmurs, no rub and no gallops GI normal to inspection, nondistended, normoactive bowel sounds, soft to palpation, non-tender and non-distended Extremity normal to inspection and no clubbing, cyanosis or edema Skin no rashes or lesions noted General Skin Exam: no breakdown Neuro oriented x3, CN's II-XII intact bilaterally, moves all extremities, no focal motor deficits and no sensory deficits noted Sensorium / Orientation: awake Psych Psych Narrative: Patient alert and oriented, she appears appropriate Const alert, oriented x3 and no apparent distress Constitutional Narrative: Patient is lightly sedated and on the ventilator at this time, she appears frail and unwell General Appearance: cooperative HEENT normocephalic, head/scalp atraumatic and moist oral mucous membranes Eyes PERRL, EOMs intact bilaterally and conjunctivae normal Eyes Narrative: Pale conjunctiva bilaterally, no scleral icterus Neck no lymphadenopathy, supple, no JVD, thyroid normal and no carotid bruits Neck Narrative: Trachea midline, no thyroid enlargement General: trachea midline Resp normal respiratory effort, no retractions, no use of accessory muscles and clear to auscultation bilaterally Resp Narrative: Markedly diminished diffusely with few scattered crackles, mild tachypnea with no signs of extremis Auscultation: crackles; Negative for rales, rhonchi or wheezes Cardio regular rate, regular rhythm, S1 normal heart sound, S2 normal heart sound, no murmurs, no rub, no gallops, no clicks and no JVD Cardio Narrative: Mild tachycardia GI normal to inspection, nondistended, normoactive bowel sounds, soft to palpation, non-tender and non-distended Extremity normal to inspection and no clubbing, cyanosis or edema Extremity Narrative: Trace bilateral lower extremity edema-chronic, no cyanosis or clubbing Skin no rashes or lesions noted, no wounds, skin turgor normal, no jaundice, no petechiae and no mottling Skin Narrative: Scattered ecchymosis but no wounds noted erythematous patch on posterior aspect of right chest wall General Skin Exam: no breakdown Hair: total alopecia Neuro oriented x3, CN's II-XII intact bilaterally, moves all extremities, no focal motor deficits and no sensory deficits noted Neuro Narrative: Generalized weakness noted Sensorium / Orientation: awake, alert, oriented to person, oriented to place and oriented to time Speech: speech normal Psych affect normal Psych Narrative: Patient is lightly sedated on the ventilator at this time Assessment & Plan Assessment/Plan (1) Acute respiratory failure with hypoxia: PLAN: Plan 1. Acute hypoxic respiratory failure-etiology is unclear at this time, it may have been related to her blood transfusion that she received 2 days ago or perhaps fluid overload. Pulmonary medicine is participating in her care, they have relayed to me that that the patient remains medically stable this afternoon she may be moved out to PCU.. #2 pancytopenia secondary to chemotherapy for small cell lung cancer-labs will be monitored, patient's hemoglobin today was 7.2. Platelet count was 23,000, white blood cell count was 3400. #3 small cell lung cancer-complicates care, management, recovery, and prognosis #4 moderate protein and caloric malnutrition-as evidenced by estimated p.o. intake meeting less than 75% of estimated energy needs x3 months, obvious, moderate muscle wasting/fat loss noted in the clavicles, orbital areas, temporal areas, acromion areas-if medically appropriate, regular diet with 1250 mL fluid restriction is indicated, nutritional services will provide appropriate oral nutritional supplementation with diet advanced. #5 dehydration-patient's creatinine today is normal, BUN is slightly elevated at 32. #6 hypokalemia-corrected at this time, labs will be monitored #7 chronic obstructive pulmonary disease-complicates care, management, recovery, and prognosis 8. Coronary artery disease-stable at this time Charges/Coding Visit Charges Inpatient E&M: 85143 Subs Hosp L2
[2022-01-06] MEDS: Metoprolol Tartrate 50 MG Tablet PO ×2 (16:12→21:17)
[2022-01-06] MEDS: Digoxin 250 MCG/ML Ampul 500 MCG IV (16:13)
--- NOTE | 2022-01-06 17:14 | ECHOD_ITS ---
Reason For Study: Afib, Aflutter Procedure This was a 2D Doppler, Color Flow transthoracic echocardiogram. Exam performed portable in patient room. Left Ventricle Moderately dilated left ventricle. The estimated ejection fraction is 25-30 %. Right Ventricle Normal right ventricle. Atria The left atrium is moderately enlarged. Mitral Valve Mild-Moderate (1-2+) eccentric mitral valve insufficiency. Tricuspid Valve Normal tricuspid valve. Aortic Valve Mild diffuse aortic valve calcification. Trivial aortic valve insufficiency. Pulmonic Valve The pulmonic valve is not well visualized. Great Vessels Normal aortic root. Pericardium/Pleural No pericardial effusion. MMode/2D Measurements & Calculations LVIDd: 5.2 cm IVSd: 0.78 cm Ao root diam: 3.3 cm LVIDs: 4.7 cm LVPWd: 0.86 cm RVDd: 3.8 cm FS: 9.7 % LAV(MOD-bp): 59.6 ml LVAd ap4: 30.7 cm2 LVAd ap2: 32.2 cm2 LAV(MOD-bp) Indexed: 44.9 ml/m2 LVLd ap4: 7.3 cm LVLd ap2: 7.7 cm LAV(MOD-sp2): 65.9 ml EDV(MOD-sp4): 106.2 ml EDV(MOD-sp2): 111.2 ml LAV(MOD-sp4): 54.3 ml EDV(sp4-el): 109.5 ml EDV(sp2-el): 114.1 ml LVAs ap4: 23.1 cm2 LVAs ap2: 25.5 cm2 LVLs ap4: 6.4 cm LVLs ap2: 6.8 cm ESV(MOD-sp4): 67.3 ml ESV(MOD-sp2): 81.3 ml ESV(sp4-el): 70.4 ml ESV(sp2-el): 81.2 ml EF(MOD-sp4): 36.7 % EF(MOD-sp2): 26.9 % EF(sp4-el): 35.7 % SV(MOD-sp4): 39.0 ml SV(MOD-sp2): 29.9 ml SV(sp4-el): 39.1 ml LA dimension(2D): 4.5 cm LA A4 area: 19.4 cm2 RA A4 area: 17.8 cm2 Doppler Measurements & Calculations MV E max nico: 107.1 cm/sec Lat Peak E' Nico: 9.0 cm/sec Med Peak E' Nico: 4.5 cm/sec MV A max nico: 58.5 cm/sec E/E' lat: 11.9 E/E' med: 23.8 MV E/A: 1.8 Ao V2 max: 161.6 cm/sec LV V1 max: 106.6 cm/sec PA V2 max: 105.2 cm/sec Ao max P.4 mmHg LV V1 max P.5 mmHg Ao V2 mean: 99.5 cm/sec Ao mean P.5 mmHg Ao V2 VTI: 26.3 cm PI end-d nico: 183.8 cm/sec TR max nico: 327.1 cm/sec TR max P.8 mmHg ECHO/Echo Complete Interpretation Summary The estimated ejection fraction is 25-30 %. Severe LV systolic function with global LV Hypokinesia Ordering Physician: Yassine Albert Referring Physician: Crissy Lema Performed By: Hoda Echevarria RDCS, RVT
[2022-01-06] MEDS: Metoprolol Tartrate 25 MG Tablet PO (17:23)
[2022-01-06] MEDS: Digoxin 250 MCG/ML Ampul IV (17:23)
[2022-01-06] MEDS: hydrOXYzine PAM 25 MG Capsule PO (18:40)
[2022-01-06] MEDS: Atorvastatin Calcium 10 MG Tablet GT (21:16)
--- NOTE | 2022-01-06 23:05 | NURSING ---
this RN assuming care of pt at this time.
--- NOTE | 2022-01-06 23:37 | RAD_ITS ---
EXAM: XR CHEST, 1 VIEW CLINICAL INDICATION: SOB TECHNIQUE: Frontal view of the chest. This report was created using [employer] report generation technology. COMPARISON: 01/04/2022 FINDINGS: LUNGS AND PLEURAL SPACES: Heterogeneous airspace opacities at left lower lobe. Consider atelectasis versus infiltrate. Small pleural effusions are suggested. Interstitial pulmonary edema suspected. Background of emphysema. Heterogeneous somewhat nodular opacities involving the central aspect of the upper lobes extending to the apices is unchanged. No pneumothorax. HEART: Unremarkable. Cardiac silhouette not enlarged. MEDIASTINUM: Central airways and mediastinal contour are unremarkable. BONES/JOINTS: Diffuse osteopenia. Degenerative changes of the spine. Sequela of multiple thoracolumbar spine vertebroplasties. SOFT TISSUES: Unremarkable. VASCULATURE: Atherosclerotic calcifications of the nonenlarged thoracic aortic arch. Top normal size of the cardiac silhouette. TUBES, LINES AND DEVICES: Interval discontinuation of transjugular catheter and ET tube. RAD/Chest 1 View (Portable) IMPRESSION: 1. Heterogeneous airspace opacities at the left lower lobe. Consider atelectasis versus infiltrate. 2. Small pleural effusions. 3. Heterogeneous somewhat nodular opacities involving the central aspect of the upper lobes extending to the apices is unchanged. Electronically Signed: Olu Cannon MD at 0:40 EDT ,
--- NOTE | 2022-01-06 23:44 | NURSING ---
2330 pt called out stating she cannot breath. RN to assess pt. Pt RR 38, diaphoretic, LS very diminished. SPO2 95% on 4L. RT called into room and recommending Bipap. Hospitalist paged and came to room to assess pt. Orders given. [address] 2345 cxray in room taking imaging
[2022-01-06] MEDS: MethylPREDNISolone 125 MG/2 ML Vial IV (23:55)
[2022-01-07] VITALS (19 sets, daily range): BP systolic 116–136; BP diastolic 68–89; PULSE 76–103; RESP 12–22; TEMP 36.4–37; O2SAT 92–100
[2022-01-07] MEDS: hydrOXYzine PAM 25 MG Capsule PO ×4 (00:37→19:29)
[2022-01-07] MEDS: oxyCODONE 5 MG Tablet 10 MG PO ×4 (00:37→20:13)
[2022-01-07] MEDS: Acetaminophen 325 MG Tablet 650 MG PO (04:54)
[2022-01-07] MEDS: Sodium Chloride 1 GM Tablet PO ×3 (04:55→21:13)
[2022-01-07 06:57] LABS: Absolute Lymphocyte Count 0.17 X10^3/uL (0.83-4.51); Absolute Neutrophil Count 7.1 X10^3/uL (2.0-7.7); Basophil# 0.01 X10^3/uL; Basophil% 0.1 % (0-1); Hematocrit 23.7 % (37-47); Hemoglobin 7.6 g/dL (12.0-15.0); Lymphocyte # 0.17 X10^3/ul (0.83-4.51); Lymphocyte % 2.2 % (19-41); Mean Corp Hgb Conc 32.1 g/dL (32-36); Mean Corpuscular Hgb 31.9 pg (27.0-32.0); Mean Corpuscular Volume 99.6 fL (81-99); Monocyte# 0.16 X10^3/uL; Monocyte% 2.1 % (0-10); NRBC Flagged by Analyzer 0.4 % (0-5); Neutrophil # 7.12 X10^3/uL (2.7-7.7); POSITIVE COUNT YES; POSITIVE DIFFERENTIAL YES; RBC Distribution Width CV 17.4 % (11.6-14.6); RBC Distribution Width SD 62.1 fl (35.1-43.9); Red Blood Count 2.38 M/mm3 (4.2-5.4); White Blood Count 7.6 K/mm3 (4.4-11.0)
[2022-01-07 06:59] LABS: Platelet Count 26 K/mm3 (150-450)
[2022-01-07 07:00] LABS: Differential Indicated SCAN CRITERIA MET
[2022-01-07 07:09] LABS: Differential Comment SCANNED; Hypochromasia 2+; Platelet Estimate MKD DEC (ADEQ)
[2022-01-07] MEDS: Ipratropium/Albuterol Sulfate 3 ML AMPUL.NEB INHALATION ×3 (07:12→19:11)
[2022-01-07 07:29] LABS: Anion Gap 8 (5-15); BUN 32 mg/dL (7-18); BUN/Creat Ratio 44.8 RATIO (10-20); Calcium,Total 9.2 mg/dL (8.5-10.1); Chloride 109 mmol/L (98-107); Creatinine, Serum 0.71 mg/dL (0.55-1.02); EST Glomerular Filtration Rate 85 mL/min (>60); Est Glom Filt Rate - Afr Amer 103 mL/min (>60); Estimated Creatinine Clearance 36.53 ml/min; Glucose 112 mg/dL (74-106); Potassium 4.6 mmol/L (3.5-5.1); Sodium Level 140 mmol/L (136-145)
--- NOTE | 2022-01-07 07:49 | PN.CC_ITS ---
Assessment & Plan Assessment/Plan (1) Acute respiratory failure with hypoxia: (2) CHIN (acute kidney injury): (3) Small cell lung cancer: PLAN: Plan RECOMMENDATIONS: 1. Challenge with diuretics 2. Bipap with sleep and as needed 3. Continue home salt tablets for SIADH 4. Hold on further transfusions for now. Possibly need transfusions tomorrow 5. Defer to hospitalist on involvement with oncology IMPRESSIONS: 1. Acute hypoxic respiratory failure Unclear etiology. Patient reportedly has been diagnosed with pneumonia recently in the setting of advanced small cell lung cancer. Patient has been placed on antibiotics and Solu-Medrol. Patient did have decompensation following blood transfusion, so TRALI versus volume overload would be a suspicion. Overnight events are suggestive of CHF as an etiology. Patient did respond to BiPAP therapy. We will challenge with low-dose diuretics today.. Patient appears to be doing well at this time. Increase activity as tolerated. Okay to add BiPAP with sleep and as needed. Do not believe patient needs to be transferred back to the intensive care unit despite overnight issues. 2. 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 Hemoglobin appears to be adequate at this time. Cannot exclude the need for repeat transfusion tomorrow. Will monitor for bleeding complications. No NSAIDs or aspirin given platelet count. Potentially discontinue antibiotics after 48 hours if cultures negative. Tania in the sputum would likely not require treatment as patient is not neutropenic. 3. Acute kidney injury Improving. Clinical suspicion for prerenal etiology. Baseline creatinine is approximately 0.3. Patient has been hydrated with improvement in creatinine. We will continue to monitor closely. Electrolytes will be complicated by SIADH. 4. Chronic pain syndrome/osteoporosis/GERD with history of GI bleed/CAD/debility Complicates care, management, recovery and prognosis. Patient is currently on a fentanyl drip. We will have to watch for complications of narcotics given problem #1. Patient does have significant kyphosis with osteoporosis. Subjective Subjective Patient with issues overnight requiring BiPAP rescue. Patient reportedly was having shortness of breath, but stabilized after 4 hours of BiPAP therapy. Patient states she feels back to her baseline this morning and is willing to try without BiPAP. Patient is not reporting any chest pain or palpitations. No bleeding complications have been reported. Objective Data Objective Data Vital Signs: Vital Signs Temp Pulse Resp BP Pulse Ox O2 Del Method O2 Flow Rate 36.7 C 96 20 H 128/77 H 100 Bi-pap 3.5 01/07/22 05:04 01/07/22 06:41 01/07/22 05:04 01/07/22 05:04 01/07/22 05:04 01/07/22 05:04 01/06/22 23:06 FiO2 30 01/07/22 00:44 Oxygen Flow Rate (L/min) 3.5 Oxygen Delivery Method Bi-pap Weight: 45.5 kg Body Mass Index (BMI) 21.3 Intake & Output: Intake and Output for Last 24 Hours 01/05/22 01/06/22 01/07/22 23:59 23:59 23:59 Intake Total 2308.98 / 2422.98 941.67 / 941.67 240 / 240 Output Total 795 / 995 1475 / 1475 800 / 800 Balance 1513.98 / 1427.98 -533.33 / -533.33 -560 / -560 Medical Nutrition Assessment Dietitian: Malnutrition Criteria Met Start: 01/05/22 09:45 Freq: Status: Active Protocol: Document 01/06/22 10:23 LO (Rec: 01/06/22 10:24 [id number]) Nutrition Malnutrition Evidence of Malnutrition Exists Yes Malnutrition (moderate): Chronic Evidenced By Suboptimal Energy Intake ( Moderate),Physical Changes ( Moderate) Clinical Problem Chronic Disease or Condition Related Malnutrition Etiology moderate, chronic malnutrition related to inadequate energy intake w/ increased energy needs d/t cancer Signs/Symptoms as evidenced by estimated PO intake meeting <75% of estimated energy needs x 3 months; obvious, moderate muscle wasting/fat loss noted in clavicles, orbital, temporal, acromion areas. Status Active Problem Recommendation Dietitian Recommendations/Changes Continue Regular diet with 2000mL fluid restriction per MD. Will reassess need for ONS at follow-up. Lab / Micro Data Attestation: I reviewed the patient's lab results. Result Diagrams: 01/07/22 06:45 01/07/22 06:45 Labs: Laboratory Results - last 24 hr 01/06/22 03:30: Diff Path Review Reviewed 01/07/22 06:45: WBC 7.6, RBC 2.38 L, Hgb 7.6 L, Hct 23.7 L, MCV 99.6 H, MCH 31.9, MCHC 32.1, RDW Std Deviation 62.1 H, RDW Coeff of Surinder 17.4 H, Plt Count 26 L*, MPV TNP, Immature Gran % (Auto) 1.600 H, Neut % (Auto) 94.0 H, Lymph % (Auto) 2.2 L, [place] % (Auto) 2.1, Eos % (Auto) 0.0, Baso % (Auto) 0.1, Absolute Neuts (auto) 7.1, Absolute Lymphs (auto) 0.17 L, Nucleated RBC % 0.4, Differential Comment SCANNED, Diff Path Review September, Platelet Estimate MKD DEC, Hypochromasia 2+ 01/07/22 06:45: Sodium 140, Potassium 4.6, Chloride 109 H, Carbon Dioxide 23.0, Anion Gap 8, BUN 32 H, Creatinine 0.71, Estim Creat Clear Calc 36.53, Est GFR (MDRD) Af Amer 103, Est GFR (MDRD) Non-Af 85, BUN/Creatinine Ratio 44.8 H, Glucose 112 H, Calcium 9.2 Micro: Microbiology 01/04/22 20:30 Sputum, Tracheal Aspirate Gram Stain - Final 01/04/22 20:30 Sputum, Tracheal Aspirate Respiratory Culture - Preliminary Presumptive C albicans 01/04/22 21:50 Urine Catheter - Bailey Legionella Antigen - Final 01/04/22 21:50 Urine Catheter - Bailey Streptococcus pneumoniae Antigen (M - Final 01/04/22 14:45 Mucosa - Nasopharyngeal Respiratory Panel (PCR) - Final Radiography Diagnostic Testing: Radiology Impression Chest X-Ray 01/06/22 23:37 IMPRESSION: 1. Heterogeneous airspace opacities at the left lower lobe. Consider atelectasis versus infiltrate. 2. Small pleural effusions. 3. Heterogeneous somewhat nodular opacities involving the central aspect of the upper lobes extending to the apices is unchanged. Electronically Signed: Olu Cannon MD at 0:40 EDT , Physical Exam Const no apparent distress Constitutional Narrative: On bipap during my evaluation General Appearance: cooperative HEENT normocephalic, head/scalp atraumatic and moist oral mucous membranes Eyes PERRL, EOMs intact bilaterally, conjunctivae normal and no scleral icterus Neck no lymphadenopathy, supple, no JVD and no carotid bruits Neck Narrative: Trachea midline, no thyroid enlargement Resp no retractions and no use of accessory muscles Auscultation: diminished lung sounds; Negative for rales, rhonchi or wheezes Cardio regular rate, regular rhythm, S1 normal heart sound, S2 normal heart sound, no murmurs, no rub, no gallops, no clicks and no JVD GI normal to inspection, nondistended, normoactive bowel sounds, soft to palpation, non-tender and non-distended Extremity no clubbing, cyanosis or edema Skin no rashes or lesions noted, no wounds, skin turgor normal, no jaundice, no petechiae and no mottling Skin Narrative: Scattered ecchymosis but no wounds noted erythematous patch on posterior aspect of right chest wall Hair: total alopecia Neuro oriented x3, CN's II-XII intact bilaterally, moves all extremities and no focal motor deficits Neuro Narrative: Generalized weakness noted Sensorium / Orientation: awake, alert, oriented to person, oriented to place and oriented to time Speech: speech normal Psych Psych Narrative: RASS 0 Mood & Affect: flat affect Charges/Coding Visit Charges Inpatient E&M: 79874 Subs Hosp L3
[2022-01-07] MEDS: morphine SR 15 MG Tablet PO ×2 (09:27→21:25)
[2022-01-07] MEDS: guaiFENesin 1,200 MG Tablet 1200 MG PO ×2 (09:28→21:12)
[2022-01-07] MEDS: Metoprolol Tartrate 50 MG Tablet PO ×2 (09:28→21:13)
[2022-01-07] MEDS: predniSONE 20 MG Tablet 40 MG PO (09:28)
[2022-01-07] MEDS: Magnesium Chloride 64 MG Delay Rel.Tablet 128 MG PO (09:29)
[2022-01-07] MEDS: Potassium Chloride Oral Tablet 20 MEQ PO ×2 (09:29→21:12)
[2022-01-07] MEDS: Digoxin 250 MCG Tablet PO (09:29)
[2022-01-07] MEDS: Furosemide 20 MG Tablet PO (09:34)
--- NOTE | 2022-01-07 10:28 | NURSING ---
Pt's son Himanshu, updated via phone.
--- NOTE | 2022-01-07 11:49 | CASEMGMT ---
Pt is currently on 3L nc. Therapy is recommending SNF for pt at discharge and this RN CM to room to discuss with pt/ and lists provided for SNF, HHC, and DME providers including quality and resource use data and consistent with the pt's preferred geographic region, medical needs, and insurance network. Dr. Albert at bedside and CM to check back with pt/. Pt is currently still getting radiation and chemo and Dr. Albert to try and discuss with Dr. Corbett. Pt was on bipap overnight d/t increased resp distress. Per nursing, pt also with anxiety. CM to follow. SStpieter RN CM
--- NOTE | 2022-01-07 13:46 | CASEMGMT ---
Patient is going to need placement. RN CM gave patient a list earlier. Physician also spoke with patient about this. SW checked back in with patient to see if she was in agreement. However, patient was on bipap and had a difficult time talking. SW was able to understand that she had not talked about it with family yet. SW to follow. Plan: SNF pending patient's agreement, accepting facility, and pre-cert. Mable Herman PCT LACHO
[2022-01-07 14:03] LABS: Pathologist Review Reviewed
--- NOTE | 2022-01-07 15:40 | PN.HOSP_ITS ---
Subjective Subjective Patient was seen and examined today, she complained of generalized weakness and requested to be placed back on BiPAP today when I was in the room later this morning. I reviewed pulmonary medicine's note from today, they gave the patient 1 dose of Lasix. Physical therapy recommends patient be placed in a skilled n ursing facility for further rehab services at the time of discharge from the hospital, patient's was given a list of nursing homes. I talked with the patient's son in detail over the phone today. Patient converted to normal sinus rhythm from atrial fib, however later today patient was back in atrial fib. Patient an echocardiogram performed today which showed a severe decrease in ejection fraction-25 to 30%. I talked with Dr. Corbett the patient's oncologist, he states that the patient had an echocardiogram on 10/11/2021 that showed an EF of 69%. Patient has had a past history of coronary artery disease with an OH in 2005 with insertion of 1 cardiac stent. 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 I have contacted cardiology to see the patient in consultation due to the low ejection fraction, I also talked with the son again and let him know what was going on and asked him to explain to his father. Objective Data Objective Data Vital Signs: Vital Signs Temp Pulse Resp BP Pulse Ox O2 Del Method O2 Flow Rate 97.6 F L 76 18 116/72 92 Nasal Cannula 3 01/07/22 15:33 01/07/22 15:33 01/07/22 15:33 01/07/22 15:33 01/07/22 15:33 01/07/22 15:33 01/07/22 15:33 FiO2 30 01/07/22 13:22 Oxygen Flow Rate (L/min) 3 Oxygen Delivery Method Nasal Cannula Weight: 45.5 kg Body Mass Index (BMI) 21.3 Intake & Output: Intake and Output for Last 24 Hours 01/05/22 01/06/22 01/07/22 23:59 23:59 23:59 Intake Total 2308.98 / 2422.98 941.67 / 941.67 680 / 680 Output Total 795 / 995 1475 / 1475 1700 / 1700 Balance 1513.98 / 1427.98 -533.33 / -533.33 -1020 / -1020 Medical Nutrition Assessment Dietitian: Malnutrition Criteria Met Start: 01/05/22 09:45 Freq: Status: Active Protocol: Document 01/06/22 10:23 LO (Rec: 01/06/22 10:24 LO [id number]) Nutrition Malnutrition Evidence of Malnutrition Exists Yes Malnutrition (moderate): Chronic Evidenced By Suboptimal Energy Intake ( Moderate),Physical Changes ( Moderate) Clinical Problem Chronic Disease or Condition Related Malnutrition Etiology moderate, chronic malnutrition related to inadequate energy intake w/ increased energy needs d/t cancer Signs/Symptoms as evidenced by estimated PO intake meeting <75% of estimated energy needs x 3 months; obvious, moderate muscle wasting/fat loss noted in clavicles, orbital, temporal, acromion areas. Status Active Problem Recommendation Dietitian Recommendations/Changes Continue Regular diet with 2000mL fluid restriction per MD. Will reassess need for ONS at follow-up. Lab / Micro Data Result Diagrams: 01/07/22 06:45 01/07/22 06:45 Labs: Laboratory Results - last 24 hr 01/07/22 06:45: WBC 7.6, RBC 2.38 L, Hgb 7.6 L, Hct 23.7 L, MCV 99.6 H, MCH 31.9, MCHC 32.1, RDW Std Deviation 62.1 H, RDW Coeff of Surinder 17.4 H, Plt Count 26 L*, MPV TNP, Immature Gran % (Auto) 1.600 H, Neut % (Auto) 94.0 H, Lymph % (Auto) 2.2 L, [place] % (Auto) 2.1, Eos % (Auto) 0.0, Baso % (Auto) 0.1, Absolute Neuts (auto) 7.1, Absolute Lymphs (auto) 0.17 L, Nucleated RBC % 0.4, Differential Comment SCANNED, Diff Path Review Reviewed, Platelet Estimate MKD DEC, Hypochromasia 2+ 01/07/22 06:45: Sodium 140, Potassium 4.6, Chloride 109 H, Carbon Dioxide 23.0, Anion Gap 8, BUN 32 H, Creatinine 0.71, Estim Creat Clear Calc 36.53, Est GFR (MDRD) Af Amer 103, Est GFR (MDRD) Non-Af 85, BUN/Creatinine Ratio 44.8 H, Glucose 112 H, Calcium 9.2 01/07/22 09:36: Sodium Cancelled, Potassium Cancelled, Chloride Cancelled, Carbon Dioxide Cancelled, Anion Gap Cancelled, BUN Cancelled, Creatinine Cancelled, Estim Creat Clear Calc Cancelled, Est GFR (MDRD) Af Amer Cancelled, Est GFR (MDRD) Non-Af Cancelled, BUN/Creatinine Ratio Cancelled, Glucose Cancelled, Calcium Cancelled, Triglycerides Cancelled, Cholesterol Cancelled, LDL Cholesterol Cancelled, VLDL Cholesterol Cancelled, HDL Cholesterol Cancelled 01/07/22 09:36: Hepatitis C Antibody Cancelled 01/07/22 09:36: Hemoglobin A1c Cancelled Micro: Microbiology 01/04/22 20:30 Sputum, Tracheal Aspirate Gram Stain - Final 01/04/22 20:30 Sputum, Tracheal Aspirate Respiratory Culture - Final Presumptive C albicans 01/04/22 21:50 Urine Catheter - Bailey Legionella Antigen - Final 01/04/22 21:50 Urine Catheter - Bailey Streptococcus pneumoniae Antigen (M - Final 01/04/22 14:45 Mucosa - Nasopharyngeal Respiratory Panel (PCR) - Final Radiography Diagnostic Testing: Radiology Impression Echocardiogram 01/06/22 17:14 Interpretation Summary The estimated ejection fraction is 25-30 %. Severe LV systolic function with global LV Hypokinesia Ordering Physician: Yassine Albert Referring Physician: Crissy Lema Performed By: Hoda Echevarria, JENNA, RVT Chest X-Ray 01/06/22 23:37 IMPRESSION: 1. Heterogeneous airspace opacities at the left lower lobe. Consider atelectasis versus infiltrate. 2. Small pleural effusions. 3. Heterogeneous somewhat nodular opacities involving the central aspect of the upper lobes extending to the apices is unchanged. Electronically Signed: Olu Cannon MD at 0:40 EDT , Physical Exam Narrative alert and no apparent distress Constitutional Narrative: Patient is alert and appropriate.? Patient appears frail and cachectic. HEENT normocephalic, head/scalp atraumatic and moist oral mucous membranes Eyes PERRL, EOMs intact bilaterally and conjunctivae normal Neck supple, no JVD, thyroid normal and no carotid bruits General: trachea midline Resp normal respiratory effort, no retractions, no use of accessory muscles, scattered expiratory wheezes are noted bilaterally Cardio irregular rate,irregular rhythm, S1 normal heart sound, S2 normal heart sound, no murmurs, no rub and no gallops GI normal to inspection, nondistended, normoactive bowel sounds, soft to palpation, non-tender and non-distended Extremity normal to inspection and no clubbing, cyanosis or edema Skin no rashes or lesions noted General Skin Exam: no breakdown Neuro oriented x3, CN's II-XII intact bilaterally, moves all extremities, no focal motor deficits and no sensory deficits noted Sensorium / Orientation: awake Psych Psych Narrative: Patient alert and oriented, she appears appropriate Assessment & Plan Assessment/Plan (1) Acute respiratory failure with hypoxia: PLAN: Plan 1.? Acute hypoxic respiratory failure-etiology is unclear at this time, it may have been related to her blood transfusion that she received 2 days ago or perhaps fluid overload.? Pulmonary medicine is participating in her care. In light of the patient's severe LV dysfunction on her echocardiogram today, her respiratory failure could have been caused by fluid overload. Patient will be evaluated for further diuresis tomorrow, she received 1 dose of Lasix from pulmonary medicine today. #2 pancytopenia secondary to chemotherapy for small cell lung cancer-labs will be monitored, patient's hemoglobin today was 7.6.? Platelet count was 26,000, white blood cell count was 7600. #3 small cell lung cancer-complicates care, management, recovery, and prognosis #4 moderate protein and caloric malnutrition-as evidenced by estimated p.o. intake meeting less than 75% of estimated energy needs x3 months, obvious, moderate muscle wasting/fat loss noted in the clavicles, orbital areas, temporal areas, acromion areas-if medically appropriate, regular diet with 1250 mL fluid restriction is indicated, nutritional services will provide appropriate oral nutritional supplementation with diet advanced.? #5 dehydration-patient's creatinine today is normal, BUN was 32. #6 hypokalemia-corrected at this time, labs will be monitored #7 chronic obstructive pulmonary disease-complicates care, management, recovery, and prognosis 8.? Coronary artery disease-stable at this time #9 cardiomyopathy-type unknown-possible ischemic in nature, cardiology saw the patient today and will place the patient on a baby aspirin, patient is too frail to undergo a cardiac catheterization at this time, if she stabilizes she may be candidate to have one done. #10 paroxysmal atrial fib-patient is currently on digoxin and a beta-anmol Prognosis is guarded at this time. Charges/Coding Visit Charges Inpatient E&M: 74315 Subs Hosp L3
[2022-01-07] MEDS: Senna/Docusate Sodium 1 Tablet 2 TABLET PO (15:44)
--- NOTE | 2022-01-07 16:38 | PCM.CONS.C ---
Assessment & Plan Assessment/Plan (1) Acute respiratory failure with hypoxia: (2) Dehydration: (3) Small cell lung cancer: (4) Anemia requiring transfusions: (5) Paroxysmal atrial fibrillation: PLAN: 71-year-old patient with longstanding history of smoking For nearly 60 years Patient with history of CAD s/p PCI and stent of coronary artery done in [facility] History of AAA status postrepair with severe anemia requiring blood transfusion at that time Patient has been diagnosed with small cell lung cancer and was treated with radiation and chemo In this admission she had shortness of breath with acute respiratory failure and hypoxia, dehydration acute kidney injury electrolyte abnormality with hyponatremia and hypokalemia. Cardiac auscultation requested as she had severe LV dysfunction on echocardiogram with EF in the range of 25-30% Also she had a new onset paroxysmal atrial fibrillation Cardiac care plan; 1. Patient is not a candidate at present time for cardiac cath as she had severe thrombocytopenia, anemia With platelet count in the range of 23?26 and hemoglobin 7.2?7.6 2. The echocardiographic findings showed severe global LV hypokinesia with ejection fraction in the range of 25 to 30% 3. Patient has paroxysmal A. fib currently rate is controlled with digoxin and beta-anmol metoprolol 4. I reviewed the current medication will continue current treatment and will follow-up clinically. HPI Consult Data Date of Consult: 01/07/22 HPI Narrative Reason for Consultation: CAD/severe LV systolic dysfunction/paroxysmal A. fib HPI Narrative: SAPPHIRE LOOMIS, is a 71 F who presents [facility] Medical History AAA (abdominal aortic aneurysm) CAD (coronary artery disease) COPD exacerbation Heart attack History of GI bleed Kidney stone Lung cancer Osteoporosis SIADH (syndrome of inappropriate ADH production) Tobacco abuse Home Medications atorvastatin 10 mg tablet 10 tab QHS cholesterol 11/13/21 [History Last Taken 1 Month Ago ~12/04/21] fluticasone fur. 100 mcg-umeclid 62.5 mcg-vilant 25 mcg inhalat.powder (Trelegy Ellipta) 1 ea inhalation DAILY breathing treatment 11/13/21 [History Last Taken 01/03/22] sulindac 200 mg tablet 200 tab PO DAILY Check with primary doctor 11/13/21 [History Last Taken 01/02/22] morphine 15 mg tablet,extended release (MS Contin) 15 mg PO BID PAIN 11/14/21 [History Last Taken 01/04/22] sodium chloride 1 gram tablet 1,000 mg PO TID #90 tabs 11/15/21 [Rx Last Taken 01/03/22] albuterol sulfate 90 mcg/actuation aerosol inhaler 2 inh inhalation Q4H PRN SOB 01/04/22 [History Last Taken 01/04/22] alendronate 70 mg tablet 70 mg PO SOLIS BONES 01/04/22 [History Last Taken 01/02/22] aspirin 325 mg tablet 325 mg PO DAILY 01/04/22 [History Last Taken 01/02/22] levofloxacin 750 mg tablet 750 mg PO DAILY 01/04/22 [History Last Taken 01/04/22] loratadine 10 mg tablet (Claritin) 10 mg PO DAILY 01/04/22 [History Last Taken 01/04/22] magnesium oxide 400 mg (241.3 mg magnesium) tablet 400 mg PO DAILY SUPPLEMENT 01/04/22 [History Last Taken 01/03/22] oxycodone-acetaminophen 10 mg-325 mg tablet (Percocet) 1 tab PO Q6H PRN Pain 01/04/22 [History Last Taken 01/03/22] pantoprazole 40 mg tablet,delayed release 40 mg PO DAILY PRN GERD 01/04/22 [History Last Taken Unknown] potassium chloride 20 mEq tablet,extended release 20 meq PO BID 01/04/22 [History Last Taken 01/03/22] prednisone 50 mg tablet 50 mg PO DAILY 01/04/22 [History Last Taken 01/04/22] sucralfate 100 mg/mL oral suspension 10 ml PO 4X/DAY PRN GERD 01/04/22 [History Last Taken Unknown] Allergy/AdvReac Type Severity Reaction Status Date / Time latex Allergy Rash Verified 11/13/21 14:30 Penicillins Allergy Anaphylaxis Verified 11/13/21 14:30 succinylcholine Allergy Anaphylaxis Verified 11/13/21 18:56 aspirin [ASA] AdvReac Upset Verified 11/13/21 18:55 Stomach Family History Other CAD (coronary artery disease) Heart disease Hypertension Surgical History S/P AAA repair Social History Smoking Status: Former smoker alcohol intake: never substance use type: does not use Physical Exam Narrative Patient seen and evaluated today at bedside along with the nursing staff Review of the traffic monitor specialist showed underlying A. fib with controlled ventricular rate Patient alert orientated, hard of hearing Cardiovascular semination; S1-S2 is irregular, no systolic or diastolic murmur, no pericardial rub Chest examination; mildly diminished air entry bilateral Examination lower extremity; no pedal edema, pedal pulses palpable Risk Stratification Risk Stratification Applicable: Yes Age >/= 65: Yes >/= 3 CAD Risk Factors (HTN, HLD, DM, family hx of CAD, or current smoker): Yes Aspirin Use in the Past 7 Days: Yes Severe Angina (>/= episodes in 24 hours): No EKG ST Changes >/= 0.5mm: No Positive Cardiac Marker: No CANDICE Risk Stratification Score: 3 CANDICE % Risk: 13% Risk Objective Data Vital Signs: Vital Signs Temp Pulse Resp BP Pulse Ox O2 Del Method O2 Flow Rate 97.6 F L 76 18 116/72 92 Nasal Cannula 3 01/07/22 15:33 01/07/22 15:33 01/07/22 15:33 01/07/22 15:33 01/07/22 15:33 01/07/22 15:33 01/07/22 15:33 FiO2 30 01/07/22 13:22 Oxygen Flow Rate (L/min) 3 Oxygen Delivery Method Nasal Cannula Weight: 100 lb 4.965 oz Body Mass Index (BMI) 21.3 Intake & Output: Intake and Output for Last 24 Hours 01/05/22 01/06/22 01/07/22 23:59 23:59 23:59 Intake Total 2308.98 / 2422.98 941.67 / 941.67 680 / 680 Output Total 795 / 995 1475 / 1475 1700 / 1700 Balance 1513.98 / 1427.98 -533.33 / -533.33 -1020 / -1020 Lab / Micro Data Result Diagrams: 01/07/22 06:45 01/07/22 06:45 Labs: Laboratory Results - last 24 hr 01/07/22 06:45: WBC 7.6, RBC 2.38 L, Hgb 7.6 L, Hct 23.7 L, MCV 99.6 H, MCH 31.9, MCHC 32.1, RDW Std Deviation 62.1 H, RDW Coeff of Surinder 17.4 H, Plt Count 26 L*, MPV TNP, Immature Gran % (Auto) 1.600 H, Neut % (Auto) 94.0 H, Lymph % (Auto) 2.2 L, [place] % (Auto) 2.1, Eos % (Auto) 0.0, Baso % (Auto) 0.1, Absolute Neuts (auto) 7.1, Absolute Lymphs (auto) 0.17 L, Nucleated RBC % 0.4, Differential Comment SCANNED, Diff Path Review Reviewed, Platelet Estimate MKD DEC, Hypochromasia 2+ 01/07/22 06:45: Sodium 140, Potassium 4.6, Chloride 109 H, Carbon Dioxide 23.0, Anion Gap 8, BUN 32 H, Creatinine 0.71, Estim Creat Clear Calc 36.53, Est GFR (MDRD) Af Amer 103, Est GFR (MDRD) Non-Af 85, BUN/Creatinine Ratio 44.8 H, Glucose 112 H, Calcium 9.2 01/07/22 09:36: Sodium Cancelled, Potassium Cancelled, Chloride Cancelled, Carbon Dioxide Cancelled, Anion Gap Cancelled, BUN Cancelled, Creatinine Cancelled, Estim Creat Clear Calc Cancelled, Est GFR (MDRD) Af Amer Cancelled, Est GFR (MDRD) Non-Af Cancelled, BUN/Creatinine Ratio Cancelled, Glucose Cancelled, Calcium Cancelled, Triglycerides Cancelled, Cholesterol Cancelled, LDL Cholesterol Cancelled, VLDL Cholesterol Cancelled, HDL Cholesterol Cancelled 01/07/22 09:36: Hepatitis C Antibody Cancelled 01/07/22 09:36: Hemoglobin A1c Cancelled Micro: Microbiology 01/04/22 20:30 Sputum, Tracheal Aspirate Gram Stain - Final 01/04/22 20:30 Sputum, Tracheal Aspirate Respiratory Culture - Final Presumptive C albicans Cardiology Labs/Tests 01/07/22 06:45: WBC 7.6, RBC 2.38 L, Hgb 7.6 L, Hct 23.7 L, MCV 99.6 H, MCH 31.9, MCHC 32.1, Plt Count 26 L*, MPV TNP, Immature Gran % (Auto) 1.600 H, Neut % (Auto) 94.0 H, Lymph % (Auto) 2.2 L, [place] % (Auto) 2.1, Eos % (Auto) 0.0, Baso % (Auto) 0.1, Absolute Neuts (auto) 7.1, Nucleated RBC % 0.4 01/07/22 06:45: Sodium 140, Potassium 4.6, Chloride 109 H, Carbon Dioxide 23.0, Anion Gap 8, BUN 32 H, Creatinine 0.71, Est GFR (MDRD) Af Amer 103, Est GFR (MDRD) Non-Af 85, BUN/Creatinine Ratio 44.8 H, Glucose 112 H, Calcium 9.2 01/07/22 09:36: Sodium Cancelled, Potassium Cancelled, Chloride Cancelled, Carbon Dioxide Cancelled, Anion Gap Cancelled, BUN Cancelled, Creatinine Cancelled, Est GFR (MDRD) Af Amer Cancelled, Est GFR (MDRD) Non-Af Cancelled, BUN/Creatinine Ratio Cancelled, Glucose Cancelled, Calcium Cancelled, Triglycerides Cancelled, Cholesterol Cancelled, LDL Cholesterol Cancelled, VLDL Cholesterol Cancelled, HDL Cholesterol Cancelled 01/07/22 09:36: Hemoglobin A1c Cancelled Rhythm: Intermittent A. fib/alternating with sinus rhythm EKG: Wide-complex QRS tachycardia ECHO: Severe LV systolic dysfunction, EF 25-30% Radiography Diagnostic Testing: Radiology Impression Echocardiogram 01/06/22 17:14 Interpretation Summary The estimated ejection fraction is 25-30 %. Severe LV systolic function with global LV Hypokinesia Ordering Physician: Yassine Albert Referring Physician: Crissy Lema Performed By: Hoda Echevarria, JENNA, RVT Chest X-Ray 01/06/22 23:37 IMPRESSION: 1. Heterogeneous airspace opacities at the left lower lobe. Consider atelectasis versus infiltrate. 2. Small pleural effusions. 3. Heterogeneous somewhat nodular opacities involving the central aspect of the upper lobes extending to the apices is unchanged. Electronically Signed: Olu Cannon MD at 0:40 EDT ,
[2022-01-07] MEDS: Lactulose 20 GM/30 ML UDC 30 GM PO (17:50)
[2022-01-07] MEDS: Atorvastatin Calcium 10 MG Tablet PO (21:13)
[2022-01-08] VITALS (18 sets, daily range): BP systolic 114–134; BP diastolic 67–84; PULSE 75–92; RESP 12–18; TEMP 36.6–37.1; O2SAT 93–100
[2022-01-08] MEDS: oxyCODONE 5 MG Tablet 10 MG PO ×3 (05:16→22:17)
[2022-01-08] MEDS: Sodium Chloride 1 GM Tablet PO ×3 (05:16→21:07)
[2022-01-08] MEDS: hydrOXYzine PAM 25 MG Capsule PO ×4 (05:16→22:17)
[2022-01-08 07:14] LABS: Absolute Lymphocyte Count 0.47 X10^3/uL (0.83-4.51); Absolute Neutrophil Count 7.4 X10^3/uL (2.0-7.7); Basophil# 0.01 X10^3/uL; Basophil% 0.1 % (0-1); Hematocrit 24.9 % (37-47); Hemoglobin 8.3 g/dL (12.0-15.0); Lymphocyte # 0.47 X10^3/ul (0.83-4.51); Lymphocyte % 5.6 % (19-41); Mean Corp Hgb Conc 33.3 g/dL (32-36); Mean Corpuscular Hgb 33.1 pg (27.0-32.0); Mean Corpuscular Volume 99.2 fL (81-99); Mean Platelet Vol. 13.2 fl (6.2-12.0); Monocyte# 0.46 X10^3/uL; Monocyte% 5.5 % (0-10); NRBC Flagged by Analyzer 0.5 % (0-5); Neutrophil # 7.39 X10^3/uL (2.7-7.7); Neutrophil % 87.7 % (47-70); POSITIVE COUNT YES; POSITIVE DIFFERENTIAL YES; RBC Distribution Width CV 16.8 % (11.6-14.6); RBC Distribution Width SD 59.5 fl (35.1-43.9); Red Blood Count 2.51 M/mm3 (4.2-5.4); White Blood Count 8.4 K/mm3 (4.4-11.0)
[2022-01-08 07:37] LABS: Platelet Count 33 K/mm3 (150-450)
[2022-01-08 07:38] LABS: Differential Indicated SCAN CRITERIA MET
[2022-01-08 07:39] LABS: Anion Gap 5 (5-15); BUN 28 mg/dL (7-18); BUN/Creat Ratio 43.4 RATIO (10-20); Calcium,Total 8.6 mg/dL (8.5-10.1); Chloride 107 mmol/L (98-107); Creatinine, Serum 0.64 mg/dL (0.55-1.02); EST Glomerular Filtration Rate 96 mL/min (>60); Est Glom Filt Rate - Afr Amer 116 mL/min (>60); Estimated Creatinine Clearance 36.77 ml/min; Glucose 93 mg/dL (74-106); Potassium 3.7 mmol/L (3.5-5.1); Sodium Level 139 mmol/L (136-145)
[2022-01-08] MEDS: Ipratropium/Albuterol Sulfate 3 ML AMPUL.NEB INHALATION ×3 (07:50→19:18)
[2022-01-08 08:06] LABS: Platelet Estimate MOD DEC (ADEQ); Red Cell Morphology NORM C+C NORMAL (NORM C&C)
--- NOTE | 2022-01-08 08:20 | PN.CC_ITS ---
Assessment & Plan Assessment/Plan (1) Acute respiratory failure with hypoxia: (2) CHIN (acute kidney injury): (3) Small cell lung cancer: PLAN: Plan RECOMMENDATIONS: 1. Challenge with daily diuretics 2. Bipap with sleep and as needed 3. Continue home salt tablets for SIADH 4. Hold on further transfusions for now. 5. Defer to cardiology on possible catheterization IMPRESSIONS: 1. Acute hypoxic respiratory failure Unclear etiology. Patient reportedly has been diagnosed with pneumonia recently in the setting of advanced small cell lung cancer. Patient has been placed on antibiotics and Solu-Medrol. Patient did have decompensation following blood transfusion, so TRALI versus volume overload would be a susp icion. Overnight events are suggestive of CHF as an etiology. Patient did respond to BiPAP therapy. We will challenge with low-dose diuretics daily. Monitor renal function closely. Patient appears to be doing well at this time. Increase activity as tolerated. Continue BiPAP with sleep and as needed. Do not believe patient needs to be transferred back to the intensive care unit at this time. 2. 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 Hemoglobin appears to be adequate at this time. Cannot exclude the need for repeat transfusion tomorrow. Will monitor for bleeding complications. No NSAIDs or aspirin given platelet count. Potentially discontinue antibiotics after 48 hours if cultures negative. Tania in the sputum would likely not require treatment as patient is not neutropenic. 3. Acute kidney injury Improving. Clinical suspicion for prerenal etiology. Baseline creatinine is approximately 0.3. Patient has been hydrated with improvement in creatinine. We will continue to monitor closely. Electrolytes will be complicated by SIADH. 4. Chronic pain syndrome/osteoporosis/GERD with history of GI bleed/CAD/debility Complicates care, management, recovery and prognosis. Patient is currently on a fentanyl drip. We will have to watch for complications of narcotics given problem #1. Patient does have significant kyphosis with oste oporosis. Subjective Subjective Patient did okay overnight. Patient did feel she was losing my breath the longer I stay off of the machine. Patient does not use supplemental oxygen at home. Patient denies any productive cough or fever. No chest pain or palpitations of been reported. Objective Data Objective Data Vital Signs: Vital Signs Temp Pulse Resp BP Pulse Ox O2 Del Method O2 Flow Rate 37.1 C 81 16 134/84 H 93 Nasal Cannula 3 01/08/22 03:00 01/08/22 07:50 01/08/22 07:50 01/08/22 03:00 01/08/22 07:50 01/08/22 07:50 01/08/22 07:50 FiO2 30 01/08/22 03:00 Oxygen Flow Rate (L/min) 3 Oxygen Delivery Method Nasal Cannula Weight: 45.8 kg Body Mass Index (BMI) 21.3 Intake & Output: Intake and Output for Last 24 Hours 01/06/22 01/07/22 01/08/22 23:59 23:59 23:59 Intake Total 941.67 / 941.67 1080 / 1320 240 / 240 Output Total 1475 / 1475 2550 / 2850 550 / 550 Balance -533.33 / -533.33 -1470 / -1530 -310 / -310 Medical Nutrition Assessment Dietitian: Malnutrition Criteria Met Start: 01/05/22 09:45 Freq: Status: Active Protocol: Document 01/06/22 10:23 LO (Rec: 01/06/22 10:24 [id number]) Nutrition Malnutrition Evidence of Malnutrition Exists Yes Malnutrition (moderate): Chronic Evidenced By Suboptimal Energy Intake ( Moderate),Physical Changes ( Moderate) Clinical Problem Chronic Disease or Condition Related Malnutrition Etiology moderate, chronic malnutrition related to inadequate energy intake w/ increased energy needs d/t cancer Signs/Symptoms as evidenced by estimated PO intake meeting <75% of estimated energy needs x 3 months; obvious, moderate muscle wasting/fat loss noted in clavicles, orbital, temporal, acromion areas. Status Active Problem Recommendation Dietitian Recommendations/Changes Continue Regular diet with 2000mL fluid restriction per MD. Will reassess need for ONS at follow-up. Lab / Micro Data Attestation: I reviewed the patient's lab results. Result Diagrams: 01/08/22 06:54 01/08/22 06:54 Labs: Laboratory Results - last 24 hr 01/07/22 06:45: Diff Path Review Reviewed 01/07/22 09:36: Sodium Cancelled, Potassium Cancelled, Chloride Cancelled, Ca rbon Dioxide Cancelled, Anion Gap Cancelled, BUN Cancelled, Creatinine Cancelled, Estim Creat Clear Calc Cancelled, Est GFR (MDRD) Af Amer Cancelled, Est GFR (MDRD) Non-Af Cancelled, BUN/Creatinine Ratio Cancelled, Glucose Cancelled, Calcium Cancelled, Triglycerides Cancelled, Cholesterol Cancelled, LDL Cholesterol Cancelled, VLDL Cholesterol Cancelled, HDL Cholesterol Cancelled 01/07/22 09:36: Hepatitis C Antibody Cancelled 01/07/22 09:36: Hemoglobin A1c Cancelled 01/08/22 06:54: WBC 8.4, RBC 2.51 L, Hgb 8.3 L, Hct 24.9 L, MCV 99.2 H, MCH 33.1 H, MCHC 33.3, RDW Std Deviation 59.5 H, RDW Coeff of Surinder 16.8 H, Plt Count 33 L* , MPV 13.2 H, Immature Gran % (Auto) 1.100 H, Neut % (Auto) 87.7 H, Lymph % (Auto) 5.6 L, [place] % (Auto) 5.5, Eos % (Auto) 0.0, Baso % (Auto) 0.1, Absolute Neuts (auto) 7.4, Absolute Lymphs (auto) 0.47 L, Nucleated RBC % 0.5, Diff Path Review September, Platelet Estimate MOD DEC, RBC Morphology NORM C+C 01/08/22 06:54: Sodium 139, Potassium 3.7, Chloride 107, Carbon Dioxide 27.0, Anion Gap 5, BUN 28 H, Creatinine 0.64, Estim Creat Clear Calc 36.77, Est GFR (MDRD) Af Amer 116, Est GFR (MDRD) Non-Af 96, BUN/Creatinine Ratio 43.4 H, Glucose 93, Calcium 8.6 Micro: Microbiology 01/04/22 20:30 Sputum, Tracheal Aspirate Gram Stain - Final 01/04/22 20:30 Sputum, Tracheal Aspirate Respiratory Culture - Final Presumptive C albicans 01/04/22 21:50 Urine Catheter - Bailey Legionella Antigen - Final 01/04/22 21:50 Urine Catheter - Bailey Streptococcus pneumoniae Antigen (M - Final 01/04/22 14:45 Mucosa - Nasopharyngeal Respiratory Panel (PCR) - Final Radiography Diagnostic Testing: Radiology Impression Echocardiogram 01/06/22 17:14 Interpretation Summary The estimated ejection fraction is 25-30 %. Severe LV systolic function with global LV Hypokinesia Ordering Physician: Yassine Albert Referring Physician: Crissy Lema Performed By: Hoda Echevarria, JENNA, RVT Physical Exam Const alert, oriented x3 and no apparent distress Constitutional Narrative: On nasal cannula during my evaluation General Appearance: cooperative and frail; Negative for lethargic HEENT normocephalic, head/scalp atraumatic and moist oral mucous membranes Eyes PERRL, EOMs intact bilaterally, conjunctivae normal and no scleral icterus Neck no lymphadenopathy, supple, no JVD and no carotid bruits Neck Narrative: Trachea midline, no thyroid enlargement Resp no retractions and no use of accessory muscles Resp Narrative: No stridor postextubation Auscultation: diminished lung sounds; Negative for rales, rhonchi or wheezes Cardio regular rate, regular rhythm, S1 normal heart sound, S2 normal heart sound, no murmurs, no rub, no gallops, no clicks and no JVD GI normal to inspection, nondistended, normoactive bowel sounds, soft to palpation, non-tender and non-distended Extremity no clubbing, cyanosis or edema Skin no rashes or lesions noted, no wounds, skin turgor normal, no jaundice, no petechiae and no mottling Skin Narrative: Scattered ecchymosis but no wounds noted erythematous patch on posterior aspect of right chest wall Hair: total alopecia Neuro oriented x3, CN's II-XII intact bilaterally, moves all extremities and no focal motor deficits Neuro Narrative: Generalized weakness noted Sensorium / Orientation: awake, alert, oriented to person, oriented to place and oriented to time Speech: speech normal Psych Psych Narrative: RASS 0 Mood & Affect: flat affect Charges/Coding Visit Charges Inpatient E&M: 26290 Subs Hosp L2
[2022-01-08] MEDS: Potassium Chloride Oral Tablet 20 MEQ PO ×2 (10:11→21:07)
[2022-01-08] MEDS: Magnesium Chloride 64 MG Delay Rel.Tablet 128 MG PO (10:11)
[2022-01-08] MEDS: guaiFENesin 1,200 MG Tablet 1200 MG PO ×2 (10:12→21:07)
[2022-01-08] MEDS: levoFLOXacin 750 MG Tablet PO (10:12)
[2022-01-08] MEDS: Digoxin 250 MCG Tablet PO (10:12)
[2022-01-08] MEDS: predniSONE 20 MG Tablet 40 MG PO (10:12)
[2022-01-08] MEDS: Metoprolol Tartrate 50 MG Tablet PO ×2 (10:13→21:07)
[2022-01-08] MEDS: morphine SR 15 MG Tablet PO ×2 (10:23→21:14)
[2022-01-08] MEDS: Furosemide 20 MG Tablet PO ×2 (10:23→17:17)
[2022-01-08] MEDS: Lisinopril 2.5 MG Tablet PO (10:23)
--- NOTE | 2022-01-08 11:28 | CASEMGMT ---
Addendum entered by Terri Sullivan 01/08/22 18:27: HENRY note HENRY spoke to patient's . He indicated that patient would give up if she was sent to a SNF. Patient's indicated that he wants patient to go to TCU if [facility] will suspend her radiation.. she can't do chemo anyway now. voices that patient loves [facility] and the care she receives so she would be comfortable being in TCU. RN offered to page [facility] regarding if the radiation could be suspended. However, patient needs precertification for any SNF placement so the contact with [facility] can wait till Monday. Terri CHANEL Original Note: HENRY Note HENRY was advised by the LEIGH Tam that patient wants referral to TCU. HENRY went into patient's room. Patient had the cipap/bipap on and PT/OT was working with her. No family present. Terri CHANEL
--- NOTE | 2022-01-08 12:27 | PCM.PN.CARD ---
Subjective Subjective Seen and evaluated today at bedside along with the nursing staff Shortness of breath is improving She does not have any active chest pain. Review of the cardiac telemetry today showed underlying normal sinus Cardiovascular Kane S1-S2 regular, no systolic or diastolic murmur Chest exam showed mildly diminished air entry bilateral Objective Data Vital Signs: Vital Signs Temp Pulse Resp BP Pulse Ox O2 Del Method O2 Flow Rate 98.4 F 79 18 114/67 98 Nasal Cannula 3 01/08/22 09:58 01/08/22 11:16 01/08/22 09:58 01/08/22 10:13 01/08/22 11:59 01/08/22 10:00 01/08/22 10:00 FiO2 30 01/08/22 03:00 Oxygen Flow Rate (L/min) 3 Oxygen Delivery Method Nasal Cannula Weight: 100 lb 15.547 oz Body Mass Index (BMI) 21.3 Intake & Output: Intake and Output for Last 24 Hours 01/06/22 01/07/22 01/08/22 23:59 23:59 23:59 Intake Total 941.67 / 941.67 1080 / 1320 240 / 240 Output Total 1475 / 1475 2550 / 2850 550 / 550 Balance -533.33 / -533.33 -1470 / -1530 -310 / -310 Lab / Micro Data Result Diagrams: 01/08/22 06:54 01/08/22 06:54 Labs: Laboratory Results - last 24 hr 01/07/22 06:45: Diff Path Review Reviewed 01/08/22 06:54: WBC 8.4, RBC 2.51 L, Hgb 8.3 L, Hct 24.9 L, MCV 99.2 H, MCH 33.1 H, MCHC 33.3, RDW Std Deviation 59.5 H, RDW Coeff of Surinder 16.8 H, Plt Count 33 L*, MPV 13.2 H, Immature Gran % (Auto) 1.100 H, Neut % (Auto) 87.7 H, Lymph % (Auto) 5.6 L, [place] % (Auto) 5.5, Eos % (Auto) 0.0, Baso % (Auto) 0.1, Absolute Neuts (auto) 7.4, Absolute Lymphs (auto) 0.47 L, Nucleated RBC % 0.5, Diff Path Review May foll, Platelet Estimate MOD DEC, RBC Morphology NORM C+C 01/08/22 06:54: Sodium 139, Potassium 3.7, Chloride 107, Carbon Dioxide 27.0, Anion Gap 5, BUN 28 H, Creatinine 0.64, Estim Creat Clear Calc 36.77, Est GFR (MDRD) Af Amer 116, Est GFR (MDRD) Non-Af 96, BUN/Creatinine Ratio 43.4 H, Glucose 93, Calcium 8.6 Micro: Microbiology 01/07/22 21:35 Stool Stool Occult Blood (RODRIGUE) - Final Occult Blood Positive 01/04/22 20:30 Sputum, Tracheal Aspirate Gram Stain - Final 01/04/22 20:30 Sputum, Tracheal Aspirate Respiratory Culture - Final Presumptive C albicans Cardiology Labs/Tests 01/08/22 06:54: WBC 8.4, RBC 2.51 L, Hgb 8.3 L, Hct 24.9 L, MCV 99.2 H, MCH 33.1 H, MCHC 33.3, Plt Count 33 L*, MPV 13.2 H, Immature Gran % (Auto) 1.100 H, Neut % (Auto) 87.7 H, Lymph % (Auto) 5.6 L, [place] % (Auto) 5.5, Eos % (Auto) 0.0, Baso % (Auto) 0.1, Absolute Neuts (auto) 7.4, Nucleated RBC % 0.5 01/08/22 06:54: Sodium 139, Potassium 3.7, Chloride 107, Carbon Dioxide 27.0, Anion Gap 5, BUN 28 H, Creatinine 0.64, Est GFR (MDRD) Af Amer 116, Est GFR (MDRD) Non-Af 96, BUN/Creatinine Ratio 43.4 H, Glucose 93, Calcium 8.6 Rhythm: EKG: ECHO: Stress Test: Cardiac Cath: PCI: CT Surgery: Holter monitor: EPS: PPM: CXR: Chest CT Scan: Assessment & Plan Assessment/Plan (1) Small cell lung cancer: (2) Acute respiratory failure with hypoxia: (3) Thrombocytopenia: (4) Pneumonia: (5) Paroxysmal atrial fibrillation: PLAN: Plan 71-year-old patient with history of small cell lung cancer Has been treated with chemo and radiation And this presentation she has acute hypoxic respiratory failure And echocardiographic evaluation showed significantly reduced LV systolic function Patient known to have history of CAD with prior PCI and stent done at [facility] Cardiac [facility] and recommendations; 1. Noted her platelet count improving to 33 with a hemoglobin of 8.3 2. I added low-dose aspirin to her current treatment. Her radiation monitor today showed underlying normal sinus She has a episode of intermittent atrial fibrillation., Not a candidate for anticoagulation due to severe thrombocytopenia and anemia At risk of bleed. Patient has severe LV systolic dysfunction ejection fraction in the range of 25 to 30% At present time she is not a candidate for cardiac catheterization however we will continue medical treatment with low-dose aspirin, atorvastatin, I discussed cardiac care plan today with the patient, the son as well as nursing staff Will continue to monitor and follow-up clinically.
--- NOTE | 2022-01-08 12:42 | PCM.PN.HOSP ---
Subjective Subjective Patient reports that she intermittently has some shortness of breath. Has responded well to the Lasix so far today. Would prefer us to leave the Bailey in today with the Lasix dosing. I did discuss with her that I would like to get it out tomorrow as it does increase her risk for infection. She has required some intermittent BiPAP today however the time of my evaluation she was on 3 to 4 L nasal cannula with oxygen saturations 96 to 98%. Objective Data Objective Data Vital Signs: Vital Signs Temp Pulse Resp BP Pulse Ox O2 Del Method O2 Flow Rate 98.4 F 79 18 114/67 98 Nasal Cannula 3 01/08/22 09:58 01/08/22 11:16 01/08/22 09:58 01/08/22 10:13 01/08/22 11:59 01/08/22 10:00 01/08/22 10:00 FiO2 30 01/08/22 03:00 Oxygen Flow Rate (L/min) 3 Oxygen Delivery Method Nasal Cannula Weight: 45.8 kg Body Mass Index (BMI) 21.3 Intake & Output: Intake and Output for Last 24 Hours 01/06/22 01/07/22 01/08/22 23:59 23:59 23:59 Intake Total 941.67 / 941.67 1080 / 1320 240 / 240 Output Total 1475 / 1475 2550 / 2850 550 / 550 Balance -533.33 / -533.33 -1470 / -1530 -310 / -310 Medical Nutrition Assessment Dietitian: Malnutrition Criteria Met Start: 01/05/22 09:45 Freq: Status: Active Protocol: Document 01/06/22 10:23 (Rec: 01/06/22 10:24 [id number]) Nutrition Malnutrition Evidence of Malnutrition Exists Yes Malnutrition (moderate): Chronic Evidenced By Suboptimal Energy Intake ( Moderate),Physical Changes ( Moderate) Clinical Problem Chronic Disease or Condition Related Malnutrition Etiology moderate, chronic malnutrition related to inadequate energy intake w/ increased energy needs d/t cancer Signs/Symptoms as evidenced by estimated PO intake meeting <75% of estimated energy needs x 3 months; obvious, moderate muscle wasting/fat loss noted in clavicles, orbital, temporal, acromion areas. Status Active Problem Recommendation Dietitian Recommendations/Changes Continue Regular diet with 2000mL fluid restriction per MD. Will reassess need for ONS at follow-up. Lab / Micro Data Result Diagrams: 01/08/22 06:54 01/08/22 06:54 Labs: Laboratory Results - last 24 hr 01/07/22 06:45: Diff Path Review Reviewed 01/08/22 06:54: WBC 8.4, RBC 2.51 L, Hgb 8.3 L, Hct 24.9 L, MCV 99.2 H, MCH 33.1 H, MCHC 33.3, RDW Std Deviation 59.5 H, RDW Coeff of Surinder 16.8 H, Plt Count 33 L*, MPV 13.2 H, Immature Gran % (Auto) 1.100 H, Neut % (Auto) 87.7 H, Lymph % (Auto) 5.6 L, Ponce % (Auto) 5.5, Eos % (Auto) 0.0, Baso % (Auto) 0.1, Absolute Neuts (auto) 7.4, Absolute Lymphs (auto) 0.47 L, Nucleated RBC % 0.5, Diff Path Review May , Platelet Estimate MOD DEC, RBC Morphology NORM C+C 01/08/22 06:54: Sodium 139, Potassium 3.7, Chloride 107, Carbon Dioxide 27.0, Anion Gap 5, BUN 28 H, Creatinine 0.64, Estim Creat Clear Calc 36.77, Est GFR (MDRD) Af Amer 116, Est GFR (MDRD) Non-Af 96, BUN/Creatinine Ratio 43.4 H, Glucose 93, Calcium 8.6 Micro: Microbiology 01/07/22 21:35 Stool Stool Occult Blood (RODRIGUE) - Final Occult Blood Positive 01/04/22 20:30 Sputum, Tracheal Aspirate Gram Stain - Final 01/04/22 20:30 Sputum, Tracheal Aspirate Respiratory Culture - Final Presumptive C albicans 01/04/22 21:50 Urine Catheter - Bailey Legionella Antigen - Final 01/04/22 21:50 Urine Catheter - Bailey Streptococcus pneumoniae Antigen (M - Final 01/04/22 14:45 Mucosa - Nasopharyngeal Respiratory Panel (PCR) - Final Physical Exam Const alert, oriented x3 and no apparent distress Constitutional Narrative: Cachectic, older white female, appears much older than stated age, sitting up in bed, appears comfortable and nontoxic, at bedside HEENT head/scalp atraumatic and moist oral mucous membranes HEENT Narrative: Dentures in place, Mallampati 1-2, no thrush Eyes PERRL and EOMs intact bilaterally Eyes Narrative: Bilateral pale conjunctiva, no scleral icterus Neck no lymphadenopathy, supple and no JVD Resp No normal respiratory effort, no retractions, no use of accessory muscles and No clear to auscultation bilaterally Resp Narrative: Tachypneic, markedly diminished with few crackles at bases bilaterally, no respiratory extremis at this time Auscultation: crackles; Negative for rhonchi or wheezes Cardio regular rate, S1 normal heart sound, S2 normal heart sound, no murmurs, no rub, no gallops, no clicks and no JVD Cardio Narrative: Rhythm is irregular irregular GI normal to inspection, nondistended, normoactive bowel sounds, soft to palpation, non-tender and non-distended GI Narrative: Scaphoid abdomen Extremity no clubbing, cyanosis or edema Extremity Narrative: Marked decrease in lean body mass Skin no wounds, skin turgor normal, no jaundice, no petechiae and no mottling Skin Narrative: Scattered ecchymosis Neuro oriented x3, CN's II-XII intact bilaterally, moves all extremities and no focal motor deficits Neuro Narrative: Significant generalized weakness Sensorium / Orientation: awake, alert, oriented to person, oriented to place and oriented to time Speech: speech normal Psych Psych Narrative: Affect is flattened mood is depressed Mood & Affect: depressed Assessment & Plan Assessment/Plan (1) Paroxysmal atrial fibrillation: (2) Acute respiratory failure with hypoxia: (3) CHIN (acute kidney injury): (4) Thrombocytopenia: (5) Anemia requiring transfusions: (6) Leukopenia: (7) Heart failure with reduced ejection fraction: PLAN: Plan Acute hypoxic respiratory failure-Multifactorial(suspected pneumonia/HFrEF/lung CA/COPD) -Nodular infiltrates noted on CT scan but does not seem consistent with her lung CA along with mediastinal lymphadenopathy that is worsened -continue Levaquin for total of 7 days -COVID and respiratory panel are negative -Sputum culture only shows presumptive Tania however patient was on antibiotics before this was obtained -We will schedule Lasix 20 mg p.o. twice daily and monitor output -Continue as needed BiPAP and supplemental O2 -Wean as able -I suspect patient will need to be discharged on supplemental oxygen -Patient would likely benefit from palliative care Acute decompensated heart failure with reduced ejection fraction -Newly worsened EF -Patient now appears to be compensated -Add Lasix 20 mg p.o. twice daily/continue metoprolol/add low-dose lisinopril at 2.5 mg twice daily to optimize goal-directed therapy -Monitor blood pressure closely -Echocardiogram from 01/06/2022 showed an EF of 25 to 30% with severe global systolic dysfunction -Had echo in August with an EF of 60 to 65% -Follows with Dr. Champion at [facility] for cardiology at baseline -Cardiology is following here but no intent to perform cardiac catheterization at this time given low platelets -Need outpatient follow-up for further work-up in the future A. fib with RVR/PAF -Patient has been in and out of A. fib during her hospital stay -Echo as above -Not an anticoagulation candidate secondary to history of severe bleeding plus severe thrombocytopenia and anemia -Continue digoxin -Continue metoprolol 50 mg p.o. 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 Corbett -On carboplatin and etoposide with concurrent radiation -Discussed case with Dr. Corbett no need for current involvement in less something changes CAD with history of NV -History of stent placement -Low-dose aspirin restarted today -Continue home statin -Previous stents were remote at [facility] Hyperlipidemia -Continue home atorvastatin 10 mg nightly COPD/emphysema -As needed albuterol -Scheduled DuoNebs neck -Hold home Trelegy Ellipta and restart at discharge Osteoporosis -Continue alendronate at discharge Chronic pain -Continue home MS Contin and Percocet GERD with history of GI bleed -Continue home pantoprazole -Continue Carafate DVT prophylaxis -SCDs -Chemoprophylaxis on hold secondary to thrombocytopenia and anemia CODE STATUS -Full code Disposition -Plan is for skilled facility at discharge -Awaiting family's decision for location -We will continue to optimize medical management while awaiting discharge plan Charges/Coding Visit Charges Inpatient E&M: 35388 Subs Hosp L3
[2022-01-08 13:29] LABS: Troponin-I HS 2927 pg/mL (3.0-54.0)
[2022-01-08 15:41] LABS: Troponin-I HS 2794 pg/mL (3.0-54.0)
[2022-01-08 19:28] LABS: Troponin-I HS 2191 pg/mL (3.0-54.0)
[2022-01-08] MEDS: Atorvastatin Calcium 10 MG Tablet PO (21:07)
[2022-01-09] VITALS (18 sets, daily range): BP systolic 96–108; BP diastolic 59–66; PULSE 64–95; RESP 16–20; TEMP 36.3–36.9; O2SAT 94–100
[2022-01-09] MEDS: Ipratropium/Albuterol Sulfate 3 ML AMPUL.NEB INHALATION ×4 (01:40→19:16)
--- NOTE | 2022-01-09 01:56 | CPS ---
Pt stated that she does not wish to wear the bipap tonight, and is fine with just wearing oxygen. O2 sat's monitored with continuous pulse ox.
[2022-01-09] MEDS: oxyCODONE 5 MG Tablet 10 MG PO ×3 (04:56→18:55)
[2022-01-09] MEDS: Sodium Chloride 1 GM Tablet PO ×3 (04:59→20:18)
[2022-01-09] MEDS: hydrOXYzine PAM 25 MG Capsule PO ×4 (05:01→20:18)
[2022-01-09 06:53] LABS: Absolute Lymphocyte Count 0.61 X10^3/uL (0.83-4.51); Absolute Neutrophil Count 7.8 X10^3/uL (2.0-7.7); Eosinophil# 0.02 X10^3/uL; Eosinophils% 0.2 % (0-5); Hematocrit 30.8 % (37-47); Hemoglobin 10.2 g/dL (12.0-15.0); Lymphocyte # 0.61 X10^3/ul (0.83-4.51); Lymphocyte % 6.8 % (19-41); Mean Corp Hgb Conc 33.1 g/dL (32-36); Mean Corpuscular Hgb 32.9 pg (27.0-32.0); Mean Corpuscular Volume 99.4 fL (81-99); Mean Platelet Vol. 11.1 fl (6.2-12.0); Monocyte# 0.53 X10^3/uL; Monocyte% 5.9 % (0-10); NRBC Flagged by Analyzer 0.3 % (0-5); Neutrophil # 7.78 X10^3/uL (2.7-7.7); Neutrophil % 86.2 % (47-70); POSITIVE COUNT YES; Platelet Count 42 K/mm3 (150-450); RBC Distribution Width CV 16.4 % (11.6-14.6); RBC Distribution Width SD 57.7 fl (35.1-43.9)
[2022-01-09 07:12] LABS: Differential Indicated SCAN CRITERIA MET
[2022-01-09 07:15] LABS: ALB/GLOB Ratio 0.7 RATIO (0.9-2.4); AST(SGOT) 26 U/L (15-37); Alanine Aminotransfer ALT/SGPT 63 U/L (13-56); Albumin, Serum 2.5 g/dL (3.2-5.0); Alkaline Phosphatase 228 U/L (45-117); Anion Gap 6 (5-15); BUN 20 mg/dL (7-18); BUN/Creat Ratio 30.2 RATIO (10-20); Calcium,Total 8.8 mg/dL (8.5-10.1); Chloride 102 mmol/L (98-107); Creatinine, Serum 0.66 mg/dL (0.55-1.02); EST Glomerular Filtration Rate 93 mL/min (>60); Est Glom Filt Rate - Afr Amer 112 mL/min (>60); Estimated Creatinine Clearance 37.17 ml/min; Globulin 3.6 g/dL (2.2-4.2); Glucose 104 mg/dL (74-106); Potassium 3.6 mmol/L (3.5-5.1); Protein, Total 6.1 g/dL (6.4-8.2); Sodium Level 139 mmol/L (136-145)
--- NOTE | 2022-01-09 07:45 | PCM.PN.INT ---
Assessment & Plan Assessment/Plan (1) Acute respiratory failure with hypoxia: (2) CHIN (acute kidney injury): (3) Small cell lung cancer: PLAN: Plan RECOMMENDATIONS: 1. Continue daily diuretics 2. Bipap with sleep and as needed 3. Continue home salt tablets for SIADH 4. Hold on further transfusions for now. 5. Defer to cardiology on possible catheterization 6. Walking oximetry prior to discharge. IMPRESSIONS: 1. Acute hypoxic respiratory failure secondary to acute systolic CHF Patient reportedly has been diagnosed with pneumonia recently in the setting of advanced small cell lung cancer. Patient initially placed on antibiotics and Solu-Medrol. Patient did have decompensation following blood transfusion, so TRALI versus volume overload would be a suspicion. Hospital course is suggestive of CHF with a reduction in EF from normal to 25 to 35%. Patient has responded to diuretic therapy. Recommend walking oximetry prior to discharge. Patient will likely require chronic Lasix pending intervention from cardiology. Discontinue antibiotics 2. 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 Hemoglobin appears to be adequate at this time. Cannot exclude the need for repeat transfusion tomorrow. Will monitor for bleeding complications. No NSAIDs or aspirin given platelet count. Likely okay to discontinue antibiotics from my perspective 3. Acute kidney injury Improving. Clinical suspicion for prerenal etiology. Baseline creatinine is approximately 0.3. Patient was hydrated with improvement in creatinine. We will continue to monitor closely. 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 4. Chronic pain syndrome/osteoporosis/GERD with history of GI bleed/CAD/debility Complicates care, management, recovery and prognosis. Patient is currently on a fentanyl drip. We will have to watch for complications of narcotics given problem #1. Patient does have significant kyphosis with osteoporosis. Subjective Subjective Patient did okay overnight. Patient subjectively feels improved compared to yesterday. Patient did wear BiPAP overnight and is still requiring supplemental oxygen. Objective Data Objective Data Vital Signs: Vital Signs Temp Pulse Resp BP Pulse Ox O2 Del Method O2 Flow Rate 36.3 C L 75 16 108/66 96 Nasal Cannula 3 01/09/22 03:00 01/09/22 07:32 01/09/22 07:32 01/09/22 03:00 01/09/22 07:32 01/09/22 07:32 01/09/22 07:32 FiO2 30 01/08/22 03:00 Oxygen Flow Rate (L/min) 3 Oxygen Delivery Method Nasal Cannula Weight: 46.3 kg Body Mass Index (BMI) 21.3 Intake & Output: Intake and Output for Last 24 Hours 01/07/22 01/08/22 01/09/22 23:59 23:59 23:59 Intake Total 1080 / 1320 1375 / 1525 200 / 200 Output Total 2550 / 2850 2500 / 3450 1575 / 1575 Balance -1470 / -1530 -1125 / -1925 -1375 / -1375 Medical Nutrition Assessment Dietitian: Malnutrition Criteria Met Start: 01/05/22 09:45 Freq: Status: Active Protocol: Document 01/06/22 10:23 LO (Rec: 01/06/22 10:24 [id number]) Nutrition Malnutrition Evidence of Malnutrition Exists Yes Malnutrition (moderate): Chronic Evidenced By Suboptimal Energy Intake ( Moderate),Physical Changes ( Moderate) Clinical Problem Chronic Disease or Condition Related Malnutrition Etiology moderate, chronic malnutrition related to inadequate energy intake w/ increased energy needs d/t cancer Signs/Symptoms as evidenced by estimated PO intake meeting <75% of estimated energy needs x 3 months; obvious, moderate muscle wasting/fat loss noted in clavicles, orbital, temporal, acromion areas. Status Active Problem Recommendation Dietitian Recommendations/Changes Continue Regular diet with 2000mL fluid restriction per MD. Will reassess need for ONS at follow-up. Lab / Micro Data Attestation: I reviewed the patient's lab results. Result Diagrams: 01/09/22 06:23 01/09/22 06:23 Labs: Laboratory Results - last 24 hr 01/08/22 06:54: Diff Path Review May foll, Platelet Estimate MOD DEC, RBC Morphology NORM C+C 01/08/22 06:54: B-Natriuretic Peptide 4169.6 H 01/08/22 13:00: Troponin I High Sens 2927 H* 01/08/22 14:44: Troponin I High Sens 2794 H* 01/08/22 18:47: Troponin I High Sens 2191 H* 01/09/22 06:23: WBC 9.0, RBC 3.10 L, Hgb 10.2 L, Hct 30.8 L, MCV 99.4 H, MCH 32.9 H, MCHC 33.1, RDW Std Deviation 57.7 H, RDW Coeff of Surinder 16.4 H, Plt Count 42 L*, MPV 11.1, Immature Gran % (Auto) 0.900, Neut % (Auto) 86.2 H, Lymph % (Auto) 6.8 L, [place] % (Auto) 5.9, Eos % (Auto) 0.2, Baso % (Auto) 0.0, Absolute Neuts (auto) 7.8 H, Absolute Lymphs (auto) 0.61 L, Nucleated RBC % 0.3 01/09/22 06:23: Sodium 139, Potassium 3.6, Chloride 102, Carbon Dioxide 31.0, Anion Gap 6, BUN 20 H, Creatinine 0.66, Estim Creat Clear Calc 37.17, Est GFR (MDRD) Af Amer 112, Est GFR (MDRD) Non-Af 93, BUN/Creatinine Ratio 30.2 H, Glucose 104, Calcium 8.8, Total Bilirubin 0.80, AST 26, ALT 63 H, Alkaline Phosphatase 228 H, Total Protein 6.1 L, Albumin 2.5 L, Globulin 3.6, Albumin/Globulin Ratio 0.7 L Micro: Microbiology 01/07/22 21:35 Stool Stool Occult Blood (RODRIGUE) - Final Occult Blood Positive 01/04/22 20:30 Sputum, Tracheal Aspirate Gram Stain - Final 01/04/22 20:30 Sputum, Tracheal Aspirate Respiratory Culture - Final Presumptive C albicans 01/04/22 21:50 Urine Catheter - Bailey Legionella Antigen - Final 01/04/22 21:50 Urine Catheter - Bailey Streptococcus pneumoniae Antigen (M - Final 01/04/22 14:45 Mucosa - Nasopharyngeal Respiratory Panel (PCR) - Final Physical Exam Const alert, oriented x3 and no apparent distress Constitutional Narrative: On nasal cannula during my evaluation General Appearance: cooperative and frail; Negative for lethargic HEENT normocephalic, head/scalp atraumatic and moist oral mucous membranes Eyes PERRL, EOMs intact bilaterally, conjunctivae normal and no scleral icterus Neck no lymphadenopathy, supple, no JVD and no carotid bruits Resp no retractions and no use of accessory muscles Auscultation: diminished lung sounds; Negative for rales, rhonchi or wheezes Cardio regular rate, regular rhythm, S1 normal heart sound, S2 normal heart sound, no murmurs, no rub, no gallops, no clicks and no JVD GI normal to inspection, nondistended, normoactive bowel sounds, soft to palpation, non-tender and non-distended Extremity no clubbing, cyanosis or edema Skin no rashes or lesions noted, no wounds, skin turgor normal, no jaundice, no petechiae and no mottling Skin Narrative: Scattered ecchymosis but no wounds noted erythematous patch on posterior aspect of right chest wall Hair: total alopecia Neuro oriented x3, CN's II-XII intact bilaterally, moves all extremities and no focal motor deficits Neuro Narrative: Generalized weakness noted Sensorium / Orientation: awake, alert, oriented to person, oriented to place and oriented to time Speech: speech normal Psych Psych Narrative: RASS 0 Mood & Affect: flat affect Charges/Coding Visit Charges Inpatient E&M: 69497 Subs Hosp L2
[2022-01-09 08:07] LABS: Anisocytosis 1+; Platelet Estimate MKD DEC (ADEQ)
[2022-01-09] MEDS: guaiFENesin 1,200 MG Tablet 1200 MG PO ×2 (09:10→20:18)
[2022-01-09] MEDS: Digoxin 250 MCG Tablet PO (09:11)
[2022-01-09] MEDS: Aspirin E.C. 81 MG Tablet PO (09:12)
[2022-01-09] MEDS: Magnesium Chloride 64 MG Delay Rel.Tablet 128 MG PO (09:12)
[2022-01-09] MEDS: Metoprolol Tartrate 50 MG Tablet PO (09:12)
[2022-01-09] MEDS: Furosemide 20 MG Tablet PO ×2 (09:13→17:20)
[2022-01-09] MEDS: Lisinopril 2.5 MG Tablet PO (09:13)
[2022-01-09] MEDS: Potassium Chloride Oral Tablet 20 MEQ PO ×2 (09:14→20:17)
[2022-01-09] MEDS: morphine SR 15 MG Tablet PO ×2 (09:19→21:21)
--- NOTE | 2022-01-09 10:18 | PN.HOSP_ITS ---
Subjective Subjective Patient states her breathing is much improved over the last 24 hours. She did not require any BiPAP last evening or today. She is anxious to get rehab going so she can continue her chemotherapy and radiation. I did tell her I would discuss further the plans for her discharge with Dr. Corbett so he was aware. I will do this tomorrow. We will go ahead and discontinue her Bailey today. Objective Data Objective Data Vital Signs: Vital Signs Temp Pulse Resp BP Pulse Ox O2 Del Method O2 Flow Rate 97.9 F 90 17 105/64 96 Nasal Cannula 3 01/09/22 09:08 01/09/22 09:12 01/09/22 09:08 01/09/22 09:12 01/09/22 09:08 01/09/22 09:08 01/09/22 09:08 FiO2 30 01/08/22 03:00 Oxygen Flow Rate (L/min) 3 Oxygen Delivery Method Nasal Cannula Weight: 46.3 kg Body Mass Index (BMI) 21.3 Intake & Output: Intake and Output for Last 24 Hours 01/07/22 01/08/22 01/09/22 23:59 23:59 23:59 Intake Total 1080 / 1320 1375 / 1525 200 / 200 Output Total 2550 / 2850 2500 / 3450 1575 / 1575 Balance -1470 / -1530 -1125 / -1925 -1375 / -1375 Medical Nutrition Assessment Dietitian: Malnutrition Criteria Met Start: 01/05/22 09:45 Freq: Status: Active Protocol: Document 01/06/22 10:23 (Rec: 01/06/22 10:24 [id number]) Nutrition Malnutrition Evidence of Malnutrition Exists Yes Malnutrition (moderate): Chronic Evidenced By Suboptimal Energy Intake ( Moderate),Physical Changes ( Moderate) Clinical Problem Chronic Disease or Condition Related Malnutrition Etiology moderate, chronic malnutrition related to inadequate energy intake w/ increased energy needs d/t cancer Signs/Symptoms as evidenced by estimated PO intake meeting <75% of estimated energy needs x 3 months; obvious, moderate muscle wasting/fat loss noted in clavicles, orbital, temporal, acromion areas. Status Active Problem Recommendation Dietitian Recommendations/Changes Continue Regular diet with 2000mL fluid restriction per MD. Will reassess need for ONS at follow-up. Lab / Micro Data Result Diagrams: 01/09/22 06:23 01/09/22 06:23 Labs: Laboratory Results - last 24 hr 01/08/22 06:54: B-Natriuretic Peptide 4169.6 H 01/08/22 13:00: Troponin I High Sens 2927 H* 01/08/22 14:44: Troponin I High Sens 2794 H* 01/08/22 18:47: Troponin I High Sens 2191 H* 01/09/22 06:23: WBC 9.0, RBC 3.10 L, Hgb 10.2 L, Hct 30.8 L, MCV 99.4 H, MCH 32.9 H, MCHC 33.1, RDW Std Deviation 57.7 H, RDW Coeff of Surinder 16.4 H, Plt Count 42 L*, MPV 11.1, Immature Gran % (Auto) 0.900, Neut % (Auto) 86.2 H, Lymph % (Auto) 6.8 L, [place] % (Auto) 5.9, Eos % (Auto) 0.2, Baso % (Auto) 0.0, Absolute Neuts (auto) 7.8 H, Absolute Lymphs (auto) 0.61 L, Nucleated RBC % 0.3, Diff Path Review September, Platelet Estimate MKD DEC, Anisocytosis 1+ 01/09/22 06:23: Sodium 139, Potassium 3.6, Chloride 102, Carbon Dioxide 31.0, Anion Gap 6, BUN 20 H, Creatinine 0.66, Estim Creat Clear Calc 37.17, Est GFR (MDRD) Af Amer 112, Est GFR (MDRD) Non-Af 93, BUN/Creatinine Ratio 30.2 H, Glucose 104, Calcium 8.8, Total Bilirubin 0.80, AST 26, ALT 63 H, Alkaline Phosphatase 228 H, Total Protein 6.1 L, Albumin 2.5 L, Globulin 3.6, Albumin/Globulin Ratio 0.7 L Micro: Microbiology 01/07/22 21:35 Stool Stool Occult Blood (RODRIGUE) - Final Occult Blood Positive 01/04/22 20:30 Sputum, Tracheal Aspirate Gram Stain - Final 01/04/22 20:30 Sputum, Tracheal Aspirate Respiratory Culture - Final Presumptive C albicans 01/04/22 21:50 Urine Catheter - Bailey Legionella Antigen - Final 01/04/22 21:50 Urine Catheter - Bailey Streptococcus pneumoniae Antigen (M - Final 01/04/22 14:45 Mucosa - Nasopharyngeal Respiratory Panel (PCR) - Final Physical Exam Const alert, oriented x3 and no apparent distress Constitutional Narrative: Cachectic, older white female, appears much older than stated age, sitting up in bed, appears comfortable and nontoxic, at bedside, currently on nasal cannula at 3 L, watching television HEENT head/scalp atraumatic and moist oral mucous membranes HEENT Narrative: Mallampati 2, no thrush, dentures in place Head and Scalp: normocephalic Resp normal respiratory effort, no retractions, no use of accessory muscles and clear to auscultation bilaterally Resp Narrative: Diffusely diminished but clear Auscultation: Negative for crackles, rales, rhonchi or wheezes Cardio regular rate, S1 normal heart sound, S2 normal heart sound, no murmurs, no rub, no gallops, no clicks and no JVD Cardio Narrative: Rhythm is irregular irregular GI normal to inspection, nondistended, normoactive bowel sounds, soft to palpation, non-tender and non-distended GI Narrative: Scaphoid abdomen Extremity no clubbing, cyanosis or edema Extremity Narrative: Marked decrease in lean body mass Neuro oriented x3, moves all extremities and no focal motor deficits Neuro Narrative: Significant generalized weakness Sensorium / Orientation: awake, alert, oriented to person, oriented to place and oriented to time Speech: speech normal Assessment & Plan Assessment/Plan (1) Paroxysmal atrial fibrillation: (2) Acute respiratory failure with hypoxia: (3) CHIN (acute kidney injury): (4) Thrombocytopenia: (5) Anemia requiring transfusions: (6) Leukopenia: (7) Heart failure with reduced ejection fraction: PLAN: Plan Acute hypoxic respiratory failure-Multifactorial(suspected pneumonia/HFrEF/lung CA/COPD) -Nodular infiltrates noted on CT scan but does not seem consistent with her lung CA along with mediastinal lymphadenopathy that is worsened -Antibiotics completed -COVID and respiratory panel are negative -Continue Lasix 20 mg p.o. twice daily--> intended discharge on 20 mg daily -Continue as needed BiPAP and supplemental O2--> no BiPAP needed overnight or this morning -Wean as able -Currently on 3 L nasal cannula at 96 to 100% -I suspect patient will need to be discharged on supplemental oxygen -Patient would likely benefit from palliative care -Continue as needed Roxanol Acute decompensated heart failure with reduced ejection fraction -Newly worsened EF -Patient now appears to be compensated -Continue Lasix 20 mg daily -Continue metoprolol -Continue low-dose lisinopril -Echocardiogram from 01/06/2022 showed an EF of 25 to 30% with severe global systolic dysfunction -Had echo in August with an EF of 60 to 65% -Follows with Dr. Champion at [facility] for cardiology at baseline -Cardiology is following here but no intent to perform cardiac catheterization at this time given low platelets -Need outpatient follow-up for further work-up in the future--> will discuss further with cardiology tomorrow as her platelet count seems to be recovering however if lesions identified aspirin and Plavix may not be a good option for her in the long run A. fib with RVR/PAF -Patient has been in and out of A. fib during her hospital stay -Currently rate controlled A. fib -Echo as above -Not an anticoagulation candidate secondary to history of severe bleeding plus severe thrombocytopenia and anemia -Continue digoxin -Continue metoprolol 50 mg p.o. 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 Corbett -On carboplatin and etoposide with concurrent radiation -Discussed case with Dr. oCrbett no need for current involvement in less something changes -We will rediscuss tomorrow with Dr. Corbett to update him on plan of care at discharge CAD with history of ME -History of stent placement -Continue baby aspirin -Continue home statin -Previous stents were remote at [facility] Hyperlipidemia -Continue home atorvastatin 10 mg nightly COPD/emphysema -As needed albuterol -Scheduled DuoNebs neck -Hold home Trelegy Ellipta and restart at discharge Osteoporosis -Continue alendronate at discharge Chronic pain -Continue home MS Contin and Percocet GERD with history of GI bleed -Continue home pantoprazole -Continue Carafate DVT prophylaxis -SCDs -Chemoprophylaxis on hold secondary to thrombocytopenia and anemia CODE STATUS -Full code Disposition -Plan is for skilled facility at discharge and patient and family would prefer transitional care unit -Patient is ready for discharge medically as long as cardiology defers any further work-up at this time -We will continue to optimize medical management while awaiting discharge plan Charges/Coding Visit Charges Inpatient E&M: 71876 Subs Hosp L2
--- NOTE | 2022-01-09 13:06 | PCM.PN.CARD ---
Subjective Subjective Shortness of breath improving Note chest pain reported Objective Data Vital Signs: Vital Signs Temp Pulse Resp BP Pulse Ox O2 Del Method O2 Flow Rate 97.9 F 64 17 105/64 99 Nasal Cannula 3 01/09/22 09:08 01/09/22 11:07 01/09/22 09:08 01/09/22 09:12 01/09/22 11:31 01/09/22 09:08 01/09/22 11:31 FiO2 30 01/08/22 03:00 Oxygen Flow Rate (L/min) 3 Oxygen Delivery Method Nasal Cannula Weight: 102 lb 1.184 oz Body Mass Index (BMI) 21.3 Intake & Output: Intake and Output for Last 24 Hours 01/07/22 01/08/22 01/09/22 23:59 23:59 23:59 Intake Total 1080 / 1320 1375 / 1525 200 / 200 Output Total 2550 / 2850 2500 / 3450 1575 / 1575 Balance -1470 / -1530 -1125 / -1925 -1375 / -1375 Lab / Micro Data Result Diagrams: 01/09/22 06:23 01/09/22 06:23 Labs: Laboratory Results - last 24 hr 01/08/22 13:00: Troponin I High Sens 2927 H* 01/08/22 14:44: Troponin I High Sens 2794 H* 01/08/22 18:47: Troponin I High Sens 2191 H* 01/09/22 06:23: WBC 9.0, RBC 3.10 L, Hgb 10.2 L, Hct 30.8 L, MCV 99.4 H, MCH 32.9 H, MCHC 33.1, RDW Std Deviation 57.7 H, RDW Coeff of Surinder 16.4 H, Plt Count 42 L*, MPV 11.1, Immature Gran % (Auto) 0.900, Neut % (Auto) 86.2 H, Lymph % (Auto) 6.8 L, [place] % (Auto) 5.9, Eos % (Auto) 0.2, Baso % (Auto) 0.0, Absolute Neuts (auto) 7.8 H, Absolute Lymphs (auto) 0.61 L, Nucleated RBC % 0.3, Diff Path Review May foll, Platelet Estimate MKD DEC, Anisocytosis 1+ 01/09/22 06:23: Sodium 139, Potassium 3.6, Chloride 102, Carbon Dioxide 31.0, Anion Gap 6, BUN 20 H, Creatinine 0.66, Estim Creat Clear Calc 37.17, Est GFR (MDRD) Af Amer 112, Est GFR (MDRD) Non-Af 93, BUN/Creatinine Ratio 30.2 H, Glucose 104, Calcium 8.8, Total Bilirubin 0.80, AST 26, ALT 63 H, Alkaline Phosphatase 228 H, Total Protein 6.1 L, Albumin 2.5 L, Globulin 3.6, Albumin/Globulin Ratio 0.7 L Micro: Microbiology 01/07/22 21:35 Stool Stool Occult Blood (RODRIGUE) - Final Occult Blood Positive Cardiology Labs/Tests 01/09/22 06:23: WBC 9.0, RBC 3.10 L, Hgb 10.2 L, Hct 30.8 L, MCV 99.4 H, MCH 32.9 H, MCHC 33.1, Plt Count 42 L*, MPV 11.1, Immature Gran % (Auto) 0.900, Neut % (Auto) 86.2 H, Lymph % (Auto) 6.8 L, [place] % (Auto) 5.9, Eos % (Auto) 0.2, Baso % (Auto) 0.0, Absolute Neuts (auto) 7.8 H, Nucleated RBC % 0.3 01/09/22 06:23: Sodium 139, Potassium 3.6, Chloride 102, Carbon Dioxide 31.0, Anion Gap 6, BUN 20 H, Creatinine 0.66, Est GFR (MDRD) Af Amer 112, Est GFR (MDRD) Non-Af 93, BUN/Creatinine Ratio 30.2 H, Glucose 104, Calcium 8.8, Total Bilirubin 0.80 Rhythm: EKG: ECHO: Stress Test: Cardiac Cath: PCI: CT Surgery: Holter monitor: EPS: PPM: CXR: Chest CT Scan: Assessment & Plan Assessment/Plan (1) Anemia requiring transfusions: (2) Small cell lung cancer: (3) Hypoxia: (4) Pneumonia: (5) Thrombocytopenia: (6) Hypokalemia: (7) Paroxysmal atrial fibrillation: (8) Heart failure with reduced ejection fraction: PLAN: 71-year-old patient seen and evaluated today at bedside and discussed with the nursing staff Shortness of breath is improving Patient had a history of CA lung treated with chemo and radiation She had anemia with thrombocytopenia And she had severe LV systolic dysfunction with acute systolic heart failure and hypoxia which is improving on BiPAP//nasal cannula. Also patient had underlying atrial fibrillation Cardiac care plan recommendations; 1. The echocardiographic evaluation showed severe LV dysfunction EF in the range of 25 to 30% 2. Patient had known history of CAD with prior PCI and stent in [facility]. Patient had evidence of elevated troponin I with a clinical diagnosis of non-ST elevation CA/CAD She does not have active chest pain. 3. She is not a candidate for invasive cardiac evaluation due to the anemia and thrombocytopenia and as well she is a high risk for anticoagulation. Patient had a history of GI bleed/ debility I discussed today with the patient her medical treatment rate control for A. fib low-dose aspirin and statin. Also discussed with family her son the cardiac care plan and recommendation. 4. We will continue to monitor and follow-up clinically, patient to follow-up with a marketing automation analyst on a regular basis To discuss long-term cardiac care and once her hemoglobin and platelet count improve to discuss possible cardiac catheterization.
[2022-01-09] MEDS: morphine (oral solution) 10MG/0.5ML Syringe 2.5 MG PO ×2 (14:05→20:18)
[2022-01-09] MEDS: Atorvastatin Calcium 10 MG Tablet PO (20:17)
[2022-01-10] VITALS (19 sets, daily range): BP systolic 91–109; BP diastolic 52–70; PULSE 68–112; RESP 18–22; TEMP 36.8–37.3; O2SAT 81–100
--- NOTE | 2022-01-10 03:21 | CPS ---
PT SAID SHE WAS DOING OK THIS EVENING AND DIDN'T NEED BIPAP ON.
[2022-01-10] MEDS: Sodium Chloride 1 GM Tablet PO ×2 (05:50→22:27)
[2022-01-10] MEDS: hydrOXYzine PAM 25 MG Capsule PO ×3 (05:50→17:37)
[2022-01-10] MEDS: oxyCODONE 5 MG Tablet 10 MG PO ×3 (05:51→17:37)
[2022-01-10 06:53] LABS: Absolute Lymphocyte Count 0.41 X10^3/uL (0.83-4.51); Absolute Neutrophil Count 7.7 X10^3/uL (2.0-7.7); Basophil# 0.01 X10^3/uL; Basophil% 0.1 % (0-1); Eosinophil# 0.06 X10^3/uL; Eosinophils% 0.7 % (0-5); Hematocrit 31.5 % (37-47); Hemoglobin 10.7 g/dL (12.0-15.0); Lymphocyte # 0.41 X10^3/ul (0.83-4.51); Lymphocyte % 4.8 % (19-41); Mean Corpuscular Hgb 33.6 pg (27.0-32.0); Mean Corpuscular Volume 99.1 fL (81-99); Mean Platelet Vol. 11.7 fl (6.2-12.0); Monocyte# 0.31 X10^3/uL; Monocyte% 3.6 % (0-10); NRBC Flagged by Analyzer 0 % (0-5); Neutrophil # 7.72 X10^3/uL (2.7-7.7); Neutrophil % 90.1 % (47-70); POSITIVE COUNT YES; POSITIVE DIFFERENTIAL YES; Platelet Count 49 K/mm3 (150-450); RBC Distribution Width CV 16.6 % (11.6-14.6); RBC Distribution Width SD 57.1 fl (35.1-43.9); Red Blood Count 3.18 M/mm3 (4.2-5.4); White Blood Count 8.6 K/mm3 (4.4-11.0)
[2022-01-10 06:55] LABS: Differential Indicated SCAN CRITERIA MET
[2022-01-10] MEDS: Ipratropium/Albuterol Sulfate 3 ML AMPUL.NEB INHALATION ×3 (07:08→19:55)
[2022-01-10 07:27] LABS: Platelet Estimate MKD DEC (ADEQ)
[2022-01-10 07:45] LABS: Anion Gap 9 (5-15); BUN 17 mg/dL (7-18); BUN/Creat Ratio 33.3 RATIO (10-20); Calcium,Total 8.3 mg/dL (8.5-10.1); Chloride 98 mmol/L (98-107); Creatinine, Serum 0.51 mg/dL (0.55-1.02); EST Glomerular Filtration Rate 125 mL/min (>60); Est Glom Filt Rate - Afr Amer 152 mL/min (>60); Estimated Creatinine Clearance 37.01 ml/min; Glucose 75 mg/dL (74-106); Potassium 3.9 mmol/L (3.5-5.1); Sodium Level 136 mmol/L (136-145)
[2022-01-10] MEDS: guaiFENesin 1,200 MG Tablet 1200 MG PO ×2 (09:34→22:27)
[2022-01-10] MEDS: Aspirin E.C. 81 MG Tablet PO (09:34)
[2022-01-10] MEDS: Potassium Chloride Oral Tablet 20 MEQ PO ×2 (09:34→22:26)
[2022-01-10] MEDS: morphine SR 15 MG Tablet PO ×2 (09:34→22:27)
[2022-01-10] MEDS: Magnesium Chloride 64 MG Delay Rel.Tablet 128 MG PO (09:34)
[2022-01-10] MEDS: Metoprolol Tartrate 50 MG Tablet PO ×2 (09:35→22:37)
[2022-01-10] MEDS: Furosemide 20 MG Tablet PO ×2 (09:35→17:37)
[2022-01-10] MEDS: Digoxin 250 MCG Tablet PO (09:35)
--- NOTE | 2022-01-10 10:45 | CASEMGMT ---
Per Dr. Hernandez, palliative c/s for pt and pt does meet criteria via screening tool. Order placed and referral e-mailed. Cuate ABRAHAM CM
--- NOTE | 2022-01-10 11:21 | CASEMGMT ---
TCU cannot take patient. HENRY notified patient. HENRY asked patient what her next choice would be and patient did not know. HENRY asked if SW should call her or son. Patient said her probably won't be able to hear SW on the phone. She told SW to try her son. HENRY called patient's son Himanshu. HENRY introduced self and role at [facility]. HENRY let Himanshu know that TCU cannot take patient. Himanshu said patient is going to be really upset. Patient will think going to a fci even short term is a sentence. Himanshu said the next place [facility] the list [facility]. Himanshu was going to talk with patient's in a few minutes. He will let him know that patient cannot go to TCU and have him call in to [facility] regarding next choice. Mable MONK
--- NOTE | 2022-01-10 12:16 | CASEMGMT ---
HENRY received a return call from patient's son Himanshu. Himanshu spoke with patient's and the next choice is [facility]. HENRY let Himanshu know SW will work on referral. Himanshu did not know their next choice, they would have to look at the list again. HENRY asked Dina Coyle/la nena strategic planning specialist to send a referral to [facility]. Mable MONK
--- NOTE | 2022-01-10 13:09 | PCM.PN.INT ---
Assessment & Plan Assessment/Plan (1) Acute respiratory failure with hypoxia: PLAN: Plan RECOMMENDATIONS: 1. Continue diuresis as tolerated by hemodynamics and renal function. 2. Continue to wean supplemental oxygen for saturations greater than 90%. 3. Continue bronchodilators as ordered. 4. Outpatient oncology follow-up. IMPRESSIONS: 1. Acute hypoxemic respiratory failure, likely secondary to decompensated heart failure Plan to continue diuresis as tolerated by hemodynamics and renal function. The patient is on a stable oxygen regimen. She has completed an antibiotic treatment course. Continue scheduled bronchodilators as ordered. Continue to encourage incentive spirometer use and mobilize patient as tolerated. 2. Acute kidney injury Most likely prerenal in etiology in the setting of intravascular volume depletion. Creatinine has normalized at this time. Continue to monitor urine output. No current indication for renal replacement therapy. 3. Pancytopenia/history of SIADH secondary to small cell lung cancer Likely secondary to outpatient chemotherapy regimen. Continue to monitor blood counts. No current indication for transfusion at this time. 4. Chronic pain syndrome/GERD/coronary artery disease Complicates care, management, recovery and prognosis. Continue home medications as indicated. This note was generated with [employer] dictation software. It may contain incorrect words, spelling, and punctuation that were not noted in checking the note before signing. Subjective Subjective The patient was seen and examined at the bedside this morning. Events from the last 24 hours have been reviewed. The patient is currently afebrile, hemodynamically stable and maintaining appropriate oxygen saturations on 3 L/min via nasal cannula. Objective Data Objective Data The patient's most recent lab work, culture data and imaging studies have all been personally reviewed. Surface echocardiogram dated January 07 demonstrated a moderately dilated LV with an ejection fraction of 25 to 30%. Vital Signs: Vital Signs Temp Pulse Resp BP Pulse Ox O2 Del Method O2 Flow Rate 99.1 F 76 20 H 92/52 L 94 Nasal Cannula 6 01/10/22 11:42 01/10/22 11:42 01/10/22 11:42 01/10/22 11:42 01/10/22 12:15 01/10/22 11:42 01/10/22 12:15 FiO2 30 01/08/22 03:00 Oxygen Flow Rate (L/min) [ 6 AMBULATING with Oxygen #3] Oxygen Flow Rate (L/min) [ 4 AMBULATING with Oxygen #2] Oxygen Flow Rate (L/min) [ 2 AMBULATING with Oxygen #1] Oxygen Flow Rate (L/min) [At 2 REST with Oxygen] Oxygen Flow Rate (L/min) 6 Oxygen Delivery Method Nasal Cannula Weight: 101 lb 10.13 oz Body Mass Index (BMI) 21.3 Intake & Output: Intake and Output for Last 24 Hours 01/08/22 01/09/22 01/10/22 23:59 23:59 23:59 Intake Total 1375 / 1525 1250 / 1250 450 / 450 Output Total 2500 / 3450 3175 / 3175 600 / 600 Balance -1125 / -1925 -1925 / -1925 -150 / -150 Medical Nutrition Assessment Dietitian: Malnutrition Criteria Met Start: 01/05/22 09:45 Freq: Status: Active Protocol: Document 01/06/22 10:23 LO (Rec: 01/06/22 10:24 LO [id number]) Nutrition Malnutrition Evidence of Malnutrition Exists Yes Malnutrition (moderate): Chronic Evidenced By Suboptimal Energy Intake ( Moderate),Physical Changes ( Moderate) Clinical Problem Chronic Disease or Condition Related Malnutrition Etiology moderate, chronic malnutrition related to inadequate energy intake w/ increased energy needs d/t cancer Signs/Symptoms as evidenced by estimated PO intake meeting <75% of estimated energy needs x 3 months; obvious, moderate muscle wasting/fat loss noted in clavicles, orbital, temporal, acromion areas. Status Active Problem Recommendation Dietitian Recommendations/Changes Continue Regular diet with 2000mL fluid restriction per MD. Will reassess need for ONS at follow-up. Lab / Micro Data Attestation: I reviewed the patient's lab results. Result Diagrams: 01/10/22 06:20 01/10/22 06:20 Labs: Laboratory Results - last 24 hr 01/10/22 06:20: WBC 8.6, RBC 3.18 L, Hgb 10.7 L, Hct 31.5 L, MCV 99.1 H, MCH 33.6 H, MCHC 34.0, RDW Std Deviation 57.1 H, RDW Coeff of Surinder 16.6 H, Plt Count 49 L*, MPV 11.7, Immature Gran % (Auto) 0.700, Neut % (Auto) 90.1 H, Lymph % (Auto) 4.8 L, [place] % (Auto) 3.6, Eos % (Auto) 0.7, Baso % (Auto) 0.1, Absolute Neuts (auto) 7.7, Absolute Lymphs (auto) 0.41 L, Nucleated RBC % 0, Diff Path Review September foll, Platelet Estimate MKD 01/10/22 06:20: Sodium 136, Potassium 3.9, Chloride 98, Carbon Dioxide 29.0, Anion Gap 9, BUN 17, Creatinine 0.51 L, Estim Creat Clear Calc 37.01, Est GFR (MDRD) Af Amer 152, Est GFR (MDRD) Non-Af 125, BUN/Creatinine Ratio 33.3 H, Glucose 75, Calcium 8.3 L Micro: Microbiology 01/07/22 21:35 Stool Stool Occult Blood (RODRIGUE) - Final Occult Blood Positive 01/04/22 20:30 Sputum, Tracheal Aspirate Gram Stain - Final 01/04/22 20:30 Sputum, Tracheal Aspirate Respiratory Culture - Final Presumptive C albicans 01/04/22 21:50 Urine Catheter - Bailey Legionella Antigen - Final 01/04/22 21:50 Urine Catheter - Bailey Streptococcus pneumoniae Antigen (M - Final 01/04/22 14:45 Mucosa - Nasopharyngeal Respiratory Panel (PCR) - Final Physical Exam Const alert and no apparent distress General Appearance: cooperative HEENT normocephalic, head/scalp atraumatic and moist oral mucous membranes Eyes PERRL, EOMs intact bilaterally and conjunctivae normal Neck supple General: trachea midline Chest inspection of chest normal Resp Auscultation: diminished lung sounds; Negative for rales, rhonchi or wheezes Cardio regular rate and regular rhythm GI normal to inspection, nondistended, normoactive bowel sounds Extremity no clubbing, cyanosis or edema Skin no rashes or lesions noted Neuro moves all extremities and no focal motor deficits Psych Mood & Affect: flat affect Charges/Coding Visit Charges Inpatient E&M: 76381 Subs Hosp L2
--- NOTE | 2022-01-10 13:12 | PN.HOSP_ITS ---
Subjective Subjective No issues overnight. Patient weaned to 2 L of oxygen at rest but did require 6 L with exertion to maintain sats greater than 92%. No further BiPAP needs in the last 48 hours. Patient states she is feeling better overall. I really she would like to go to transitional care and this process is pending at this time. Objective Data Objective Data Vital Signs: Vital Signs Temp Pulse Resp BP Pulse Ox O2 Del Method O2 Flow Rate 99.1 F 76 20 H 92/52 L 94 Nasal Cannula 6 01/10/22 11:42 01/10/22 11:42 01/10/22 11:42 01/10/22 11:42 01/10/22 12:15 01/10/22 11:42 01/10/22 12:15 FiO2 30 01/08/22 03:00 Oxygen Flow Rate (L/min) [ 6 AMBULATING with Oxygen #3] Oxygen Flow Rate (L/min) [ 4 AMBULATING with Oxygen #2] Oxygen Flow Rate (L/min) [ 2 AMBULATING with Oxygen #1] Oxygen Flow Rate (L/min) [At 2 REST with Oxygen] Oxygen Flow Rate (L/min) 6 Oxygen Delivery Method Nasal Cannula Weight: 46.1 kg Body Mass Index (BMI) 21.3 Intake & Output: Intake and Output for Last 24 Hours 01/08/22 01/09/22 01/10/22 23:59 23:59 23:59 Intake Total 1375 / 1525 1250 / 1250 450 / 450 Output Total 2500 / 3450 3175 / 3175 600 / 600 Balance -1125 / -1925 -1925 / -1925 -150 / -150 Medical Nutrition Assessment Dietitian: Malnutrition Criteria Met Start: 01/05/22 0 9:45 Freq: Status: Active Protocol: Document 01/06/22 10:23 LO (Rec: 01/06/22 10:24 [id number]) Nutrition Malnutrition Evidence of Malnutrition Exists Yes Malnutrition (moderate): Chronic Evidenced By Suboptimal Energy Intake ( Moderate),Physical Changes ( Moderate) Clinical Problem Chronic Disease or Condition Related Malnutrition Etiology moderate, chronic malnutrition related to inadequate energy intake w/ increased energy needs d/t cancer Signs/Symptoms as evidenced by estimated PO intake meeting <75% of estimated energy needs x 3 months; obvious, moderate muscle wasting/fat loss noted in clavicles, orbital, temporal, acromion areas. Status Active Problem Recommendation Dietitian Recommendations/Changes Continue Regular diet with 2000mL fluid restriction per MD. Will reassess need for ONS at follow-up. Lab / Micro Data Result Diagrams: 01/10/22 06:20 01/10/22 06:20 Labs: Laboratory Results - last 24 hr 01/10/22 06:20: WBC 8.6, RBC 3.18 L, Hgb 10.7 L, Hct 31.5 L, MCV 99.1 H, MCH 33.6 H, MCHC 34.0, RDW Std Deviation 57.1 H, RDW Coeff of Surinder 16.6 H, Plt Count 49 L*, MPV 11.7, Immature Gran % (Auto) 0.700, Neut % (Auto) 90.1 H, Lymph % (Auto) 4.8 L, Millard % (Auto) 3.6, Eos % (Auto) 0.7, Baso % (Auto) 0.1, Absolute Neuts (auto) 7.7, Absolute Lymphs (auto) 0.41 L, Nucleated RBC % 0, Diff Path Review September, Platelet Estimate MKD 01/10/22 06:20: Sodium 136, Potassium 3.9, Chloride 98, Carbon Dioxide 29.0, Anion Gap 9, BUN 17, Creatinine 0.51 L, Estim Creat Clear Calc 37.01, Est GFR (MDRD) Af Amer 152, Est GFR (MDRD) Non-Af 125, BUN/Creatinine Ratio 33.3 H, Glucose 75, Calcium 8.3 L Micro: Microbiology 01/07/22 21:35 Stool Stool Occult Blood (RODRIGUE) - Final Occult Blood Positive 01/04/22 20:30 Sputum, Tracheal Aspirate Gram Stain - Final 01/04/22 20:30 Sputum, Tracheal Aspirate Respiratory Culture - Final Presumptive C albicans 01/04/22 21:50 Urine Catheter - Bailey Legionella Antigen - Final 01/04/22 21:50 Urine Catheter - Bailey Streptococcus pneumoniae Antigen (M - Final 01/04/22 14:45 Mucosa - Nasopharyngeal Respiratory Panel (PCR) - Final Physical Exam Const alert, oriented x3 and no apparent distress Constitutional Narrative: Cachectic, older white female, appears much older than stated age, sitting up on the edge of the bed working with therapy services, appears comfortable and nontoxic, currently on nasal cannula at 2 L HEENT head/scalp atraumatic and moist oral mucous membranes HEENT Narrative: No thrush, patient has dentures in place but is edentulous at baseline Eyes PERRL and EOMs intact bilaterally Eyes Narrative: Bilateral pale conjunctiva, no scleral icterus Neck no lymphadenopathy, supple and no JVD Resp normal respiratory effort, no retractions, no use of accessory muscles and clear to auscultation bilaterally Resp Narrative: Diffusely diminished but clear Auscultation: Negative for crackles, rales, rhonchi or wheezes Cardio regular rate, S1 normal heart sound, S2 normal heart sound, no murmurs, no rub, no gallops, no clicks and no JVD Cardio Narrative: Rhythm is irregular irregular GI normal to inspection, nondistended, normoactive bowel sounds, soft to palpation, non-tender and non-distended GI Narrative: Scaphoid abdomen Extremity no clubbing, cyanosis or edema Extremity Narrative: Marked decrease in lean body mass Neuro oriented x3, moves all extremities and no focal motor deficits Neuro Narrative: Significant generalized weakness Sensorium / Orientation: awake, alert, oriented to person, oriented to place and oriented to time Speech: speech normal Psych Psych Narrative: Very pleasant and appropriate interactive Assessment & Plan Assessment/Plan (1) Paroxysmal atrial fibrillation: (2) Acute respiratory failure with hypoxia: (3) CHIN (acute kidney injury): (4) Thrombocytopenia: (5) Anemia requiring transfusions: (6) Leukopenia: (7) Heart failure with reduced ejection fraction: PLAN: Plan Acute hypoxic respiratory failure-Multifactorial(suspected pneumonia/HFrEF/lung CA/COPD) -Nodular infiltrates noted on CT scan but does not seem consistent with her lung CA along with mediastinal lymphadenopathy that is worsened -Antibiotics completed -COVID and respiratory panel are negative -Continue Lasix 20 mg p.o. twice daily--> intended discharge on 20 mg daily -Continue as needed BiPAP and supplemental O2--> no BiPAP needed overnight or this morning -Wean as able -Currently on 3 L nasal cannula at 96 to 100% -I suspect patient will need to be discharged on supplemental oxygen -Patient would likely benefit from palliative care -Continue as needed Roxanol Acute decompensated heart failure with reduced ejection fraction -Newly worsened EF -Patient now appears to be compensated -Continue Lasix 20 mg daily -Continue metoprolol -Continue low-dose lisinopril -Echocardiogram from 01/06/2022 showed an EF of 25 to 30% with severe global syst olic dysfunction -Had echo in August with an EF of 60 to 65% -Follows with Dr. Champion at [facility] for cardiology at baseline -Cardiology is following here but no intent to perform cardiac catheterization at this time given low platelets -Need outpatient follow-up for further work-up in the future--> will discuss further with cardiology tomorrow as her platelet count seems to be recovering however if lesions identified aspirin and Plavix may not be a good option for her in the long run A. fib with RVR/PAF -Patient has been in and out of A. fib during her hospital stay -Currently rate controlled A. fib -Echo as above -Not an anticoagulation candidate secondary to history of severe bleeding plus severe thrombocytopenia and anemia -Continue digoxin -Continue metoprolol 50 mg p.o. 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 Corbett -On carboplatin and etoposide with concurrent radiation -Discussed case with Dr. Corbett no need for current involvement in less something changes -We will rediscuss tomorrow with Dr. Corbett to update him on plan of care at discharge CAD with history of VT -History of stent placement -Continue baby aspirin -Continue home statin -Previous stents were remote at [facility] Hyperlipidemia -Continue home atorvastatin 10 mg nightly COPD/emphysema -As needed albuterol -Scheduled DuoNebs neck -Hold home Trelegy Ellipta and restart at discharge Osteoporosis -Continue alendronate at discharge Chronic pain -Continue home MS Contin and Percocet GERD with history of GI bleed -Continue home pantoprazole -Continue Carafate DVT prophylaxis -SCDs -Chemoprophylaxis on hold secondary to thrombocytopenia and anemia CODE STATUS -Full code Disposition -Plan is for skilled facility at discharge and patient and family would prefer transitional care unit -Patient is ready for discharge medically as long as cardiology defers any further work-up at this time -We will continue to optimize medical management while awaiting discharge plan Charges/Coding Visit Charges Inpatient E&M: 98404 Subs Hosp L2
--- NOTE | 2022-01-10 13:25 | CASEMGMT ---
Discharge Analytics Developer Nicole reached back out from the [facility]. Patient has been accepted at the [facility]. Nicole will start pre-cert. HENRY Akins notified. Plan: Suresh. Jonna Winslow Discharge Analytics Developer
--- NOTE | 2022-01-10 13:41 | CASEMGMT ---
HENRY went to patient's room to let her know she has been accepted at [facility]. Patient was sleeping. HENRY called patient's son to let him know, however there was no answer and his voice mailbox was full. HENRY will try again. Mable MONK
--- NOTE | 2022-01-10 14:51 | CASEMGMT ---
Patient's son Himanshu called HENRY. HENRY let him know [facility] has accepted patient. Himanshu asked about Hospice talking with patient. HENRY explained to Himanshu it was a liaison from [facility]. SW explained Palliative Care and that it is the same agency as Hospice, but a different service. He said he will let patient's know. Patient's is upset that Hospice was brought up and no one told him. Patient's is on his way to [facility]. Plan: d/c to [facility] pending pre-cert. Mable MONK
[2022-01-10 15:29] LABS: Pathologist Review Reviewed
[2022-01-10 15:40] LABS: Pathologist Review Reviewed
--- NOTE | 2022-01-10 15:56 | CASEMGMT ---
Renny from [facility] said patient did not sign papers. She declined their services, but is okay with Palliative following up in 2 weeks. Mable Herman INSURANCE CLAIMS REPRESENTATIVE LACHO
--- NOTE | 2022-01-10 19:41 | PN.CARD_ITS ---
Subjective Subjective The patient was evaluated earlier this day. She appeared to be resting comfortably at the time. Objective Data Vital Signs: Vital Signs Temp Pulse Resp BP Pulse Ox O2 Del Method O2 Flow Rate 99 F 86 20 H 106/53 L 94 Nasal Cannula 3 01/10/22 17:34 01/10/22 17:34 01/10/22 17:34 01/10/22 17:34 01/10/22 17:34 01/10/22 17:34 01/10/22 17:34 FiO2 30 01/08/22 03:00 Oxygen Flow Rate (L/min) [ 6 AMBULATING with Oxygen #3] Oxygen Flow Rate (L/min) [ 4 AMBULATING with Oxygen #2] Oxygen Flow Rate (L/min) [ 2 AMBULATING with Oxygen #1] Oxygen Flow Rate (L/min) [At 2 REST with Oxygen] Oxygen Flow Rate (L/min) 3 Oxygen Delivery Method Nasal Cannula Weight: 101 lb 10.13 oz Body Mass Index (BMI) 21.3 Intake & Output: Intake and Output for Last 24 Hours 01/08/22 01/09/22 01/10/22 23:59 23:59 23:59 Intake Total 1375 / 1525 1250 / 1250 930 / 930 Output Total 2500 / 3450 3175 / 3175 700 / 700 Balance -1125 / -1925 -1925 / -1925 230 / 230 Lab / Micro Data Result Diagrams: 01/10/22 06:20 01/10/22 06:20 Labs: Laboratory Results - last 24 hr 01/08/22 06:54: Diff Path Review Reviewed 01/10/22 06:20: WBC 8.6, RBC 3.18 L, Hgb 10.7 L, Hct 31.5 L, MCV 99.1 H, MCH 33.6 H, MCHC 34.0, RDW Std Deviation 57.1 H, RDW Coeff of Surinder 16.6 H, Plt Count 49 L*, MPV 11.7, Immature Gran % (Auto) 0.700, Neut % (Auto) 90.1 H, Lymph % (Auto) 4.8 L, Hamblen % (Auto) 3.6, Eos % (Auto) 0.7, Baso % (Auto) 0.1, Absolute Neuts (auto) 7.7, Absolute Lymphs (auto) 0.41 L, Nucleated RBC % 0, Diff Path Review Reviewed, Platelet Estimate MKD 01/10/22 06:20: Sodium 136, Potassium 3.9, Chloride 98, Carbon Dioxide 29.0, Anion Gap 9, BUN 17, Creatinine 0.51 L, Estim Creat Clear Calc 37.01, Est GFR (MDRD) Af Amer 152, Est GFR (MDRD) Non-Af 125, BUN/Creatinine Ratio 33.3 H, Glucose 75, Calcium 8.3 L Cardiology Labs/Tests 01/10/22 06:20: WBC 8.6, RBC 3.18 L, Hgb 10.7 L, Hct 31.5 L, MCV 99.1 H, MCH 33.6 H, MCHC 34.0, Plt Count 49 L*, MPV 11.7, Immature Gran % (Auto) 0.700, Neut % (Auto) 90.1 H, Lymph % (Auto) 4.8 L, Hamblen % (Auto) 3.6, Eos % (Auto) 0.7, Baso % (Auto) 0.1, Absolute Neuts (auto) 7.7, Nucleated RBC % 0 01/10/22 06:20: Sodium 136, Potassium 3.9, Chloride 98, Carbon Dioxide 29.0, Anion Gap 9, BUN 17, Creatinine 0.51 L, Est GFR (MDRD) Af Amer 152, Est GFR (MDRD) Non-Af 125, BUN/Creatinine Ratio 33.3 H, Glucose 75, Calcium 8.3 L Rhythm: Paroxysmal atrial fibrillation/flutter Physical Exam Const no apparent distress Eyes PERRL, EOMs intact bilaterally and conjunctivae normal Neck no JVD Resp clear to auscultation bilaterally Cardio Rhythm: abnormal rhythm irregularly irregular Heart Sounds: S1 normal and S2 normal Extremity no pedal edema Assessment & Plan Assessment/Plan (1) Heart failure with reduced ejection fraction: PLAN: The patient appears to have developed heart failure with reduced ejection fraction based upon concerns of her transthoracic echocardiogram demonstrating diminished LV systolic function/LVEF compared to previous studies. At the moment the patient is being monitored. She is continuing medical therapy such as beta-blockers, diuretics, afterload reducing agents, etc. Depending upon her clinical course and her objective findings she may be considered for additional diuretic therapy such as spironolactone/Aldactone and additional medical therapy such as an SGLT2 inhibitor. She is not an ideal candidate for further evaluation at this time with respect to invasive studies such as diagnostic cardiac catheterization based upon concerns of her ongoing anemia and thrombocytopenia and inability to be on antiplatelet and anticoagulant therapy. (2) Paroxysmal atrial fibrillation: PLAN: The patient has paroxysmal atrial fibrillation. She will continue rate control therapy. Again she is not an ideal candidate for anticoagulant therapy secondary to concerns of her chemotherapy related concerns of anemia and thrombocytopenia. (3) CAD (coronary artery disease): PLAN: The patient has a history of CAD. The details are unknown. At the moment she will continue conservative medical therapy as best as possible. (4) S/P PTCA (percutaneous transluminal coronary angioplasty): PLAN: The patient has a history of a PCI performed at an outside institution. The details are unknown. Again she will continue medical therapy at this time. (5) Small cell lung cancer: PLAN: The patient does have a history of lung carcinoma. She will continue to follow with her hematology/oncology team. (6) Anemia requiring transfusions: PLAN: The patient has had anemia. She has had hemoglobin levels as low as 6.3. Again this makes it challenging to proceed with any invasive valuation care b ased upon concerns of the ongoing anemia related issues, PRBC related issues, and the potential need for antiplatelet and anticoagulant therapy. (7) Thrombocytopenia: PLAN: The patient has a history of thrombocytopenia. Again there is concerns this is related to her chemotherapy. As noted above this does make it challenging to add any anticoagulant therapy. Addt'l Comments Overall, at the present time, the patient will continue conservative medical management with adjustment as best as possible. There are no immediate plans for additional cardiac diagnostic testing/procedures. The patient's case was discussed and reviewed with Dr. Hernandez. This note was generated using a voice recognition system and there may be inc orrect words, spelling or punctuation that were not noted when reviewing the office note prior to saving. Procedure Criteria Type of Procedure Procedure Type: Elective Elective Risks - COVID COVID Risk Discussion: The surgeon/proceduralist and patient have discussed in detail the risk of exposure to and/or potential harm posed by the COVID-19 virus with having a surgery/procedure at this time versus the risk of delaying the surgery/procedure. It is not possible to know either the risk of delaying the surgery or procedure or chance of getting an infection with perfect accuracy, but a joint decision was made between the patient and the surgeon/proceduralist to proceed at this time with the scheduled surgery/procedure as indicated on the consent form.
[2022-01-10] MEDS: Atorvastatin Calcium 10 MG Tablet PO (22:26)
[2022-01-10] MEDS: morphine (oral solution) 10MG/0.5ML Syringe 2.5 MG PO (22:30)
[2022-01-11] VITALS (16 sets, daily range): BP systolic 92–103; BP diastolic 50–61; PULSE 67–94; RESP 16–20; TEMP 36.2–37.2; O2SAT 93–100
[2022-01-11] MEDS: oxyCODONE 5 MG Tablet 10 MG PO ×4 (00:17→20:28)
[2022-01-11] MEDS: morphine (oral solution) 10MG/0.5ML Syringe 2.5 MG PO (02:46)
[2022-01-11] MEDS: Sodium Chloride 1 GM Tablet PO ×3 (06:21→21:26)
[2022-01-11] MEDS: Ipratropium/Albuterol Sulfate 3 ML AMPUL.NEB INHALATION ×3 (07:00→19:11)
[2022-01-11 09:05] LABS: Pathologist Review Reviewed
[2022-01-11] MEDS: Aspirin E.C. 81 MG Tablet PO (09:08)
[2022-01-11] MEDS: Potassium Chloride Oral Tablet 20 MEQ PO ×2 (09:08→21:25)
[2022-01-11] MEDS: Furosemide 20 MG Tablet PO ×2 (09:08→16:38)
[2022-01-11] MEDS: Magnesium Chloride 64 MG Delay Rel.Tablet 128 MG PO (09:08)
[2022-01-11] MEDS: guaiFENesin 1,200 MG Tablet 1200 MG PO ×2 (09:08→21:25)
[2022-01-11] MEDS: morphine SR 15 MG Tablet PO ×2 (09:08→21:25)
[2022-01-11] MEDS: Metoprolol Tartrate 50 MG Tablet PO ×2 (09:08→21:26)
[2022-01-11] MEDS: hydrOXYzine PAM 25 MG Capsule PO ×2 (09:09→20:28)
[2022-01-11] MEDS: Digoxin 250 MCG Tablet PO (09:09)
--- NOTE | 2022-01-11 10:12 | PCM.PN.INT ---
Assessment & Plan Assessment/Plan (1) Acute respiratory failure with hypoxia: PLAN: Plan RECOMMENDATIONS: 1. Continue diuresis as tolerated by hemodynamics and renal function. 2. Continue to wean supplemental oxygen for saturations greater than 90%. 3. Continue bronchodilators as ordered. 4. Outpatient oncology follow-up. 5. Encourage incentive spirometer use and mobilize patient as tolerated. IMPRESSIONS: 1. Acute hypoxemic respiratory failure, likely secondary to decompensated heart failure Plan to continue diuresis as tolerated by hemodynamics and renal function. The patient is on a stable oxygen regimen. She has completed an antibiotic treatment course. Continue scheduled bronchodilators as ordered. Continue to encourage incentive spirometer use and mobilize patient as tolerated. 2. Acute kidney injury Most likely prerenal in etiology in the setting of intravascular volume depletion. Creatinine has normalized at this time. Continue to monitor urine output. No current indication for renal replacement therapy. 3. Pancytopenia/history of SIADH secondary to small cell lung cancer Likely secondary to outpatient chemotherapy regimen. Continue to monitor blood counts. No current indication for transfusion at this time. 4. Chronic pain syndrome/GERD/coronary artery disease Complicates care, management, recovery and prognosis. Continue home medications as indicated. This note was generated with Staff Ranker dictation software. It may contain incorrect words, spelling, and punctuation that were not noted in checking the note before signing. Subjective Subjective The patient was seen and examined at the bedside this morning. Events from the last 24 hours have been reviewed. The patient is currently afebrile, hemodynamically stable and maintaining appropriate oxygen saturations on 4 L/min via nasal cannula. The patient is currently documented to be overall net -2.4 L for the hospitalization. She denies any overt shortness of breath this morning. Objective Data Objective Data The patient's most recent lab work, culture data and imaging studies have all been personally reviewed. Surface echocardiogram dated January 07 demonstrated a moderately dilated LV with an ejection fraction of 25 to 30%. Vital Signs: Vital Signs Temp Pulse Resp BP Pulse Ox O2 Del Method O2 Flow Rate 97.2 F L 84 20 H 103/51 L 94 Nasal Cannula 4 01/11/22 09:01 01/11/22 09:08 01/11/22 09:01 01/11/22 09:01 01/11/22 09:01 01/11/22 09:43 01/11/22 09:43 FiO2 30 01/08/22 03:00 Oxygen Flow Rate (L/min) [ 6 AMBULATING with Oxygen #3] Oxygen Flow Rate (L/min) [ 4 AMBULATING with Oxygen #2] Oxygen Flow Rate (L/min) [ 2 AMBULATING with Oxygen #1] Oxygen Flow Rate (L/min) [At 2 REST with Oxygen] Oxygen Flow Rate (L/min) 4 Oxygen Delivery Method Nasal Cannula Weight: 101 lb 10.13 oz Body Mass Index (BMI) 21.3 Intake & Output: Intake and Output for Last 24 Hours 01/09/22 01/10/22 01/11/22 23:59 23:59 23:59 Intake Total 1250 / 1250 930 / 930 250 / 250 Output Total 3175 / 3175 700 / 1150 450 / 450 Balance -1925 / -1925 230 / -220 -200 / -200 Medical Nutrition Assessment Dietitian: Malnutrition Criteria Met Start: 01/05/22 09:45 Freq: Status: Active Protocol: Document 01/06/22 10:23 LO (Rec: 01/06/22 10:24 [id number]) Nutrition Malnutrition Evidence of Malnutrition Exists Yes Malnutrition (moderate): Chronic Evidenced By Suboptimal Energy Intake ( Moderate),Physical Changes ( Moderate) Clinical Problem Chronic Disease or Condition Related Malnutrition Etiology moderate, chronic malnutrition related to inadequate energy intake w/ increased energy needs d/t cancer Signs/Symptoms as evidenced by estimated PO intake meeting <75% of estimated energy needs x 3 months; obvious, moderate muscle wasting/fat loss noted in clavicles, orbital, temporal, acromion areas. Status Active Problem Recommendation Dietitian Recommendations/Changes Continue Regular diet with 2000mL fluid restriction per MD. Will reassess need for ONS at follow-up. Lab / Micro Data Attestation: I reviewed the patient's lab results. Result Diagrams: 01/10/22 06:20 01/10/22 06:20 Labs: Laboratory Results - last 24 hr 01/08/22 06:54: Diff Path Review Reviewed 01/09/22 06:23: Diff Path Review Reviewed 01/10/22 06:20: Diff Path Review Reviewed Micro: Microbiology 01/07/22 21:35 Stool Stool Occult Blood (RODRIGUE) - Final Occult Blood Positive 01/04/22 20:30 Sputum, Tracheal Aspirate Gram Stain - Final 01/04/22 20:30 Sputum, Tracheal Aspirate Respiratory Culture - Final Presumptive C albicans 01/04/22 21:50 Urine Catheter - Bailey Legionella Antigen - Final 01/04/22 21:50 Urine Catheter - Bailey Streptococcus pneumoniae Antigen (M - Final 01/04/22 14:45 Mucosa - Nasopharyngeal Respiratory Panel (PCR) - Final Physical Exam Const alert and no apparent distress General Appearance: cooperative HEENT normocephalic, head/scalp atraumatic and moist oral mucous membranes Eyes PERRL, EOMs intact bilaterally and conjunctivae normal Neck supple General: trachea midline Chest Chest Narrative: Increased AP diameter Resp Auscultation: diminished lung sounds; Negative for rales, rhonchi or wheezes Cardio regular rate and regular rhythm GI normal to inspection, nondistended, normoactive bowel sounds Extremity no clubbing, cyanosis or edema Skin no rashes or lesions noted Neuro oriented x3, moves all extremities and no focal motor deficits Psych Mood & Affect: flat affect Charges/Coding Visit Charges Inpatient E&M: 27718 Subs Hosp L2
[2022-01-11 13:21] LABS: Absolute Neutrophil Count 8.8 X10^3/uL (2.0-7.7); Basophil# 0.02 X10^3/uL; Basophil% 0.2 % (0-1); Eosinophil# 0.09 X10^3/uL; Eosinophils% 0.9 % (0-5); Hematocrit 30.9 % (37-47); Hemoglobin 10.1 g/dL (12.0-15.0); Lymphocyte % 5.1 % (19-41); Mean Corp Hgb Conc 32.7 g/dL (32-36); Mean Corpuscular Hgb 32.5 pg (27.0-32.0); Mean Corpuscular Volume 99.4 fL (81-99); Mean Platelet Vol. 12.7 fl (6.2-12.0); Monocyte# 0.41 X10^3/uL; Monocyte% 4.2 % (0-10); NRBC Flagged by Analyzer 0 % (0-5); Neutrophil # 8.77 X10^3/uL (2.7-7.7); POSITIVE COUNT YES; POSITIVE DIFFERENTIAL YES; Platelet Count 73 K/mm3 (150-450); RBC Distribution Width SD 58.1 fl (35.1-43.9); Red Blood Count 3.11 M/mm3 (4.2-5.4); White Blood Count 9.9 K/mm3 (4.4-11.0)
[2022-01-11 13:22] LABS: Differential Indicated SCAN CRITERIA MET
[2022-01-11 14:32] LABS: BNP,B-Type NATRIURETIC PEPTIDE 699.4 pg/mL (0-100)
--- NOTE | 2022-01-11 15:11 | PCM.PN.HOSP ---
Subjective Subjective Patient with a brief episode of shortness of breath overnight. It did not require BiPAP however. States she is feeling pretty well this morning. Does not think she will need to be at rehab very long and is hoping to transition to their for a few days and then being able to go back home. We are still waiting on pre-CERT. Patient will need oxygen at discharge. I will retest her on the day of discharge to ascertain how much oxygen she is going to need. Objective Data Objective Data Vital Signs: Vital Signs Temp Pulse Resp BP Pulse Ox O2 Del Method O2 Flow Rate 97.2 F L 84 20 H 103/51 L 93 Nasal Cannula 4 01/11/22 09:01 01/11/22 09:08 01/11/22 09:01 01/11/22 09:01 01/11/22 10:51 01/11/22 09:43 01/11/22 10:51 FiO2 30 01/08/22 03:00 Oxygen Flow Rate (L/min) [ 6 AMBULATING with Oxygen #3] Oxygen Flow Rate (L/min) [ 4 AMBULATING with Oxygen #2] Oxygen Flow Rate (L/min) [ 2 AMBULATING with Oxygen #1] Oxygen Flow Rate (L/min) [At 2 REST with Oxygen] Oxygen Flow Rate (L/min) 4 Oxygen Delivery Method Nasal Cannula Weight: 46.1 kg Body Mass Index (BMI) 21.3 Intake & Output: Intake and Output for Last 24 Hours 01/09/22 01/10/22 01/11/22 23:59 23:59 23:59 Intake Total 1250 / 1250 930 / 930 550 / 550 Output Total 3175 / 3175 700 / 1150 650 / 650 Balance -1925 / -1925 230 / -220 -100 / -100 Medical Nutrition Assessment Dietitian: Malnutrition Criteria Met Start: 01/05/22 09:45 Freq: Status: Active Protocol: Document 01/06/22 10:23 LO (Rec: 01/06/22 10:24 [id number]) Nutrition Malnutrition Evidence of Malnutrition Exists Yes Malnutrition (moderate): Chronic Evidenced By Suboptimal Energy Intake ( Moderate),Physical Changes ( Moderate) Clinical Problem Chronic Disease or Condition Related Malnutrition Etiology moderate, chronic malnutrition related to inadequate energy intake w/ increased energy needs d/t cancer Signs/Symptoms as evidenced by estimated PO intake meeting <75% of estimated energy needs x 3 months; obvious, moderate muscle wasting/fat loss noted in clavicles, orbital, temporal, acromion areas. Status Active Problem Recommendation Dietitian Recommendations/Changes Continue Regular diet with 2000mL fluid restriction per MD. Will reassess need for ONS at follow-up. Lab / Micro Data Result Diagrams: 01/11/22 06:31 01/10/22 06:20 Labs: Laboratory Results - last 24 hr 01/08/22 06:54: Diff Path Review Reviewed 01/09/22 06:23: Diff Path Review Reviewed 01/10/22 06:20: Diff Path Review Reviewed 01/11/22 06:31: WBC 9.9, RBC 3.11 L, Hgb 10.1 L, Hct 30.9 L, MCV 99.4 H, MCH 32.5 H, MCHC 32.7, RDW Std Deviation 58.1 H, RDW Coeff of Surinder 17.0 H, Plt Count 73 L, MPV 12.7 H, Immature Gran % (Auto) 0.600, Neut % (Auto) 89.0 H, Lymph % (Auto) 5.1 L, [place] % (Auto) 4.2, Eos % (Auto) 0.9, Baso % (Auto) 0.2, Absolute Neuts (auto) 8.8 H, Absolute Lymphs (auto) 0.50 L, Nucleated RBC % 0 01/11/22 06:31: B-Natriuretic Peptide 699.4 H Micro: Microbiology 01/07/22 21:35 Stool Stool Occult Blood (RODRIGUE) - Final Occult Blood Positive 01/04/22 20:30 Sputum, Tracheal Aspirate Gram Stain - Final 01/04/22 20:30 Sputum, Tracheal Aspirate Respiratory Culture - Final Presumptive C albicans 01/04/22 21:50 Urine Catheter - Bailey Legionella Antigen - Final 01/04/22 21:50 Urine Catheter - Bailey Streptococcus pneumoniae Antigen (M - Final 01/04/22 14:45 Mucosa - Nasopharyngeal Respiratory Panel (PCR) - Final Physical Exam Const alert, oriented x3 and no apparent distress Constitutional Narrative: Cachectic, older white female, appears much older than stated age, sitting up in bed watching television, appears comfortable and nontoxic, currently on nasal cannula at 3 L HEENT head/scalp atraumatic and moist oral mucous membranes HEENT Narrative: Mallampati 1, no thrush, dentures in place Resp normal respiratory effort, no retractions, no use of accessory muscles and clear to auscultation bilaterally Resp Narrative: Diffusely diminished but clear Auscultation: Negative for crackles, rales, rhonchi or wheezes Cardio regular rate, S1 normal heart sound, S2 normal heart sound, no murmurs, no rub, no gallops, no clicks and no JVD Cardio Narrative: Rhythm is irregular irregular GI normal to inspection, nondistended, normoactive bowel sounds, soft to palpation, non-tender and non-distended GI Narrative: Scaphoid abdomen Extremity no clubbing, cyanosis or edema Extremity Narrative: Marked decrease in lean body mass Skin Skin Narrative: Scattered ecchymosis most notably bilateral upper extremities Neuro oriented x3, moves all extremities and no focal motor deficits Neuro Narrative: Significant generalized weakness Speech: speech normal Assessment & Plan Assessment/Plan (1) Paroxysmal atrial fibrillation: (2) Acute respiratory failure with hypoxia: (3) CHIN (acute kidney injury): (4) Thrombocytopenia: (5) Anemia requiring transfusions: (6) Leukopenia: (7) Heart failure with reduced ejection fraction: PLAN: Plan Acute hypoxic respiratory failure-Multifactorial(suspected pneumonia/HFrEF/lung CA/COPD) -Nodular infiltrates noted on CT scan but does not seem consistent with her lung CA along with mediastinal lymphadenopathy that is worsened -Antibiotics completed -COVID and respiratory panel are negative -Continue Lasix 20 mg p.o. twice daily -Continue as needed BiPAP and supplemental O2--> no BiPAP needed overnight or this morning -Wean as able -Currently on 3 L nasal cannula at 96 to 100% -I suspect patient will need to be discharged on supplemental oxygen -Patient would likely benefit from palliative care -Continue as needed Roxanol -Awaiting pre-CERT for discharge to skilled facility Acute decompensated heart failure with reduced ejection fraction -Newly worsened EF -Patient now appears to be compensated -Continue Lasix 20 mg twice daily -Continue metoprolol -Continue low-dose lisinopril -BNP dramatically improved from previous and patient is -2 3 L per for the hospitalization -Echocardiogram from 01/06/2022 showed an EF of 25 to 30% with severe global systolic dysfunction -Had echo in August with an EF of 60 to 65% -Follows with Dr. Champion at [facility] for cardiology at baseline -Cardiology is following here but no intent to perform cardiac catheterization at this time given low platelets -Need outpatient follow-up for further work-up in the future--> will discuss further with cardiology tomorrow as her platelet count seems to be recovering however if lesions identified aspirin and Plavix may not be a good option for her in the long run A. fib with RVR/PAF -Patient has been in and out of A. fib during her hospital stay -Currently rate controlled A. fib -Echo as above -Not an anticoagulation candidate secondary to history of severe bleeding plus severe thrombocytopenia and anemia -Continue digoxin -Continue metoprolol 50 mg p.o. 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 Corbett -On carboplatin and etoposide with concurrent radiation -Chemo and radiation will be on hold until she is more functionally improved to tolerate her next round CAD with history of [place] -History of stent placement -Continue baby aspirin -Continue home statin -Previous stents were remote at [facility] Hyperlipidemia -Continue home atorvastatin 10 mg nightly COPD/emphysema -As needed albuterol -Scheduled DuoNebs neck -Hold home Trelegy Ellipta and restart at discharge Osteoporosis -Continue alendronate at discharge Chronic pain -Continue home MS Contin and Percocet GERD with history of GI bleed -Continue home pantoprazole -Continue Carafate DVT prophylaxis -SCDs -Chemoprophylaxis on hold secondary to thrombocytopenia and anemia CODE STATUS -Full code Disposition -[facility] pre-[facility] is obtained -Patient is medically ready Charges/Coding Visit Charges Inpatient E&M: 26108 Subs Hosp L2
[2022-01-11] MEDS: Atorvastatin Calcium 10 MG Tablet PO (21:25)
[2022-01-12] VITALS (18 sets, daily range): BP systolic 80–99; BP diastolic 40–67; PULSE 56–89; RESP 16–20; TEMP 36.1–37.1; O2SAT 94–98
[2022-01-12] MEDS: oxyCODONE 5 MG Tablet 10 MG PO ×3 (04:13→18:06)
[2022-01-12] MEDS: Sodium Chloride 1 GM Tablet PO ×3 (05:11→21:28)
[2022-01-12 07:03] LABS: Anion Gap 4 (5-15); BUN 22 mg/dL (7-18); BUN/Creat Ratio 36.6 RATIO (10-20); Calcium,Total 8.8 mg/dL (8.5-10.1); Chloride 98 mmol/L (98-107); EST Glomerular Filtration Rate 104 mL/min (>60); Est Glom Filt Rate - Afr Amer 126 mL/min (>60); Estimated Creatinine Clearance 36.77 ml/min; Glucose 110 mg/dL (74-106); Potassium 4.3 mmol/L (3.5-5.1); Sodium Level 132 mmol/L (136-145)
[2022-01-12] MEDS: Ipratropium/Albuterol Sulfate 3 ML AMPUL.NEB INHALATION ×3 (07:04→19:52)
--- NOTE | 2022-01-12 09:15 | CASEMGMT ---
Discharge Room Attendant Jonna tavares/la nena speech correction assistant sent over updates to Nicole at the [facility]. Plan: Suresh, [place] Pre[facility]. Jonna Winslow Discharge Room Attendant
--- NOTE | 2022-01-12 09:54 | PCM.PN.INT ---
Assessment & Plan Assessment/Plan (1) Acute respiratory failure with hypoxia: PLAN: Plan RECOMMENDATIONS: 1. Continue diuresis as tolerated by hemodynamics and renal function. 2. Continue to wean supplemental oxygen for saturations greater than 90%. 3. Continue bronchodilators as ordered. 4. Outpatient oncology follow-up. 5. Encourage incentive spirometer use and mobilize patient as tolerated. IMPRESSIONS: 1. Acute hypoxemic respiratory failure, likely secondary to decompensated heart failure Plan to continue diuresis as tolerated by hemodynamics and renal function. The patient is on a stable oxygen regimen. She has completed an antibiotic treatment course. Continue scheduled bronchodilators as ordered. Continue to encourage incentive spirometer use and mobilize patient as tolerated. 2. Acute kidney injury Most likely prerenal in etiology in the setting of intravascular volume depletion. Creatinine has normalized at this time. Continue to monitor urine output. No current indication for renal replacement therapy. 3. Pancytopenia/history of SIADH secondary to small cell lung cancer Likely secondary to outpatient chemotherapy regimen. Continue to monitor blood counts. No current indication for transfusion at this time. 4. Chronic pain syndrome/GERD/coronary artery disease Complicates care, management, recovery and prognosis. Continue home medications as indicated. This note was generated with [employer] dictation software. It may contain incorrect words, spelling, and punctuation that were not noted in checking the note before signing. Subjective Subjective The patient was seen and examined at the bedside this morning. Events from the last 24 hours have been reviewed. The patient is currently afebrile, hemodynamically stable and maintaining appropriate oxygen saturations on 5 L/min via nasal cannula. She is currently documented to be overall net -2.2 L for the hospitalization. Objective Data Objective Data The patient's most recent lab work, culture data and imaging studies have all been personally reviewed. Surface echocardiogram dated January 07 demonstrated a moderately dilated LV with an ejection fraction of 25 to 30%. Vital Signs: Vital Signs Temp Pulse Resp BP Pulse Ox O2 Del Method O2 Flow Rate 98.7 F 89 20 H 92/52 L 97 Nasal Cannula 5 01/12/22 05:00 01/12/22 07:04 01/12/22 07:04 01/12/22 05:00 01/12/22 07:04 01/12/22 07:04 01/12/22 07:04 FiO2 30 01/08/22 03:00 Oxygen Flow Rate (L/min) [ 6 AMBULATING with Oxygen #3] Oxygen Flow Rate (L/min) [ 4 AMBULATING with Oxygen #2] Oxygen Flow Rate (L/min) [ 2 AMBULATING with Oxygen #1] Oxygen Flow Rate (L/min) [At 2 REST with Oxygen] Oxygen Flow Rate (L/min) 5 Oxygen Delivery Method Nasal Cannula Weight: 100 lb 15.547 oz Body Mass Index (BMI) 21.3 Intake & Output: Intake and Output for Last 24 Hours 01/10/22 01/11/22 01/12/22 23:59 23:59 23:59 Intake Total 930 / 930 750 / 750 Output Total 700 / 1150 1000 / 1000 Balance 230 / -220 -250 / -250 Medical Nutrition Assessment Dietitian: Malnutrition Criteria Met Start: 01/05/22 09:45 Freq: Status: Active Protocol: Document 01/11/22 15:20 LO (Rec: 01/11/22 15:20 LO [id number]) Nutrition Malnutrition Evidence of Malnutrition Exists Yes Malnutrition (moderate): Chronic Evidenced By Suboptimal Energy Intake ( Moderate),Physical Changes ( Moderate) Clinical Problem Chronic Disease or Condition Related Malnutrition Etiology moderate, chronic malnutrition related to inadequate energy intake w/ increased energy needs d/t cancer Signs/Symptoms as evidenced by estimated PO intake meeting <75% of estimated energy needs x 3 months; obvious, moderate muscle wasting/fat loss noted in clavicles, orbital, temporal, acromion areas. Status Active Problem Recommendation Dietitian Recommendations/Changes Continue Regular diet RD will order 120mL Ensure Enlive 4x daily with medpass. Lab / Micro Data Attestation: I reviewed the patient's lab results. Result Diagrams: 01/11/22 06:31 01/12/22 06:14 Labs: Laboratory Results - last 24 hr 01/11/22 06:31: WBC 9.9, RBC 3.11 L, Hgb 10.1 L, Hct 30.9 L, MCV 99.4 H, MCH 32.5 H, MCHC 32.7, RDW Std Deviation 58.1 H, RDW Coeff of Surinder 17.0 H, Plt Count 73 L, MPV 12.7 H, Immature Gran % (Auto) 0.600, Neut % (Auto) 89.0 H, Lymph % (Auto) 5.1 L, [place] % (Auto) 4.2, Eos % (Auto) 0.9, Baso % (Auto) 0.2, Absolute Neuts (auto) 8.8 H, Absolute Lymphs (auto) 0.50 L, Nucleated RBC % 0 01/11/22 06:31: B-Natriuretic Peptide 699.4 H 01/12/22 06:14: Sodium 132 L, Potassium 4.3, Chloride 98, Carbon Dioxide 30.0, Anion Gap 4 L, BUN 22 H, Creatinine 0.60, Estim Creat Clear Calc 36.77, Est GFR (MDRD) Af Amer 126, Est GFR (MDRD) Non-Af 104, BUN/Creatinine Ratio 36.6 H, Glucose 110 H, Calcium 8.8 Micro: Microbiology 01/07/22 21:35 Stool Stool Occult Blood (RODRIGUE) - Final Occult Blood Positive 01/04/22 20:30 Sputum, Tracheal Aspirate Gram Stain - Final 01/04/22 20:30 Sputum, Tracheal Aspirate Respiratory Culture - Final Presumptive C albicans 01/04/22 21:50 Urine Catheter - Bailey Legionella Antigen - Final 01/04/22 21:50 Urine Catheter - Bailey Streptococcus pneumoniae Antigen (M - Final 01/04/22 14:45 Mucosa - Nasopharyngeal Respiratory Panel (PCR) - Final Physical Exam Const alert and no apparent distress General Appearance: cooperative HEENT normocephalic, head/scalp atraumatic and moist oral mucous membranes Eyes PERRL, EOMs intact bilaterally and conjunctivae normal Neck supple General: trachea midline Chest Chest Narrative: Increased AP diameter Resp Auscultation: diminished lung sounds; Negative for rales, rhonchi or wheezes Cardio regular rate and regular rhythm GI normal to inspection, nondistended, normoactive bowel sounds Extremity no clubbing, cyanosis or edema Skin no rashes or lesions noted Neuro oriented x3, moves all extremities and no focal motor deficits Psych Mood & Affect: flat affect Charges/Coding Visit Charges Inpatient E&M: 64345 Subs Hosp L2
[2022-01-12] MEDS: Magnesium Chloride 64 MG Delay Rel.Tablet 128 MG PO (10:35)
[2022-01-12] MEDS: morphine SR 15 MG Tablet PO ×2 (10:35→21:28)
[2022-01-12] MEDS: Furosemide 20 MG Tablet PO ×2 (10:35→17:13)
[2022-01-12] MEDS: Potassium Chloride Oral Tablet 20 MEQ PO ×2 (10:36→21:26)
[2022-01-12] MEDS: Digoxin 250 MCG Tablet PO (10:36)
[2022-01-12] MEDS: Lisinopril 2.5 MG Tablet PO (10:36)
[2022-01-12] MEDS: Aspirin E.C. 81 MG Tablet PO (10:36)
[2022-01-12] MEDS: guaiFENesin 1,200 MG Tablet 1200 MG PO ×2 (10:36→21:28)
[2022-01-12] MEDS: Metoprolol Tartrate 25 MG Tablet PO (10:47)
[2022-01-12] MEDS: hydrOXYzine PAM 25 MG Capsule PO (10:47)
[2022-01-12] MEDS: Acetaminophen 325 MG Tablet 650 MG PO ×2 (10:48→17:13)
--- NOTE | 2022-01-12 15:38 | PCM.PN.HOSP ---
Subjective Subjective No issues overnight. Patient states she is feeling well overall. Still awaiting pre-CERT for discharge. Patient remains medically stable. Objective Data Objective Data Vital Signs: Vital Signs Temp Pulse Resp BP Pulse Ox O2 Del Method O2 Flow Rate 98.0 F 62 20 H 99/54 L 97 Nasal Cannula 3 01/12/22 10:11 01/12/22 15:10 01/12/22 12:51 01/12/22 10:47 01/12/22 10:11 01/12/22 15:00 01/12/22 15:00 FiO2 30 01/08/22 03:00 Oxygen Flow Rate (L/min) [ 6 AMBULATING with Oxygen #3] Oxygen Flow Rate (L/min) [ 4 AMBULATING with Oxygen #2] Oxygen Flow Rate (L/min) [ 2 AMBULATING with Oxygen #1] Oxygen Flow Rate (L/min) [At 2 REST with Oxygen] Oxygen Flow Rate (L/min) 3 Oxygen Delivery Method Nasal Cannula Weight: 45.8 kg Body Mass Index (BMI) 21.3 Intake & Output: Intake and Output for Last 24 Hours 01/10/22 01/11/22 01/12/22 23:59 23:59 23:59 Intake Total 930 / 930 750 / 750 480 / 480 Output Total 700 / 1150 1000 / 1000 300 / 300 Balance 230 / -220 -250 / -250 180 / 180 Medical Nutrition Assessment Dietitian: Malnutrition Criteria Met Start: 01/05/22 09:45 Freq: Status: Active Protocol: Document 01/11/22 15:20 (Rec: 01/11/22 15:20 [id number]) Nutrition Malnutrition Evidence of Malnutrition Exists Yes Malnutrition (moderate): Chronic Evidenced By Suboptimal Energy Intake ( Moderate),Physical Changes ( Moderate) Clinical Problem Chronic Disease or Condition Related Malnutrition Etiology moderate, chronic malnutrition related to inadequate energy intake w/ increased energy needs d/t cancer Signs/Symptoms as evidenced by estimated PO intake meeting <75% of estimated energy needs x 3 months; obvious, moderate muscle wasting/fat loss noted in clavicles, orbital, temporal, acromion areas. Status Active Problem Recommendation Dietitian Recommendations/Changes Continue Regular diet RD will order 120mL Ensure Enlive 4x daily with medpass. Lab / Micro Data Result Diagrams: 01/11/22 06:31 01/12/22 06:14 Labs: Laboratory Results - last 24 hr 01/12/22 06:14: Sodium 132 L, Potassium 4.3, Chloride 98, Carbon Dioxide 30.0, Anion Gap 4 L, BUN 22 H, Creatinine 0.60, Estim Creat Clear Calc 36.77, Est GFR (MDRD) Af Amer 126, Est GFR (MDRD) Non-Af 104, BUN/Creatinine Ratio 36.6 H, Glucose 110 H, Calcium 8.8 Micro: Microbiology 01/07/22 21:35 Stool Stool Occult Blood (RODRIGUE) - Final Occult Blood Positive 01/04/22 20:30 Sputum, Tracheal Aspirate Gram Stain - Final 01/04/22 20:30 Sputum, Tracheal Aspirate Respiratory Culture - Final Presumptive C albicans 01/04/22 21:50 Urine Catheter - Bailey Legionella Antigen - Final 01/04/22 21:50 Urine Catheter - Bailey Streptococcus pneumoniae Antigen (M - Final 01/04/22 14:45 Mucosa - Nasopharyngeal Respiratory Panel (PCR) - Final Physical Exam Const alert, oriented x3 and no apparent distress Constitutional Narrative: Cachectic, older white female, appears much older than stated age, sitting up in bed watching television, appears comfortable and nontoxic, remains on 3 to 4 L nasal cannula HEENT head/scalp atraumatic and moist oral mucous membranes HEENT Narrative: Dentures in place, Mallampati 2, no thrush Resp normal respiratory effort, no retractions, no use of accessory muscles and clear to auscultation bilaterally Resp Narrative: Diffusely diminished but clear Auscultation: Negative for crackles, rales, rhonchi or wheezes Cardio regular rate, S1 normal heart sound, S2 normal heart sound, no murmurs, no rub, no gallops, no clicks and no JVD Cardio Narrative: Rhythm is irregular irregular GI normal to inspection, nondistended, normoactive bowel sounds, soft to palpation, non-tender and non-distended GI Narrative: Scaphoid abdomen Extremity no clubbing, cyanosis or edema Extremity Narrative: Marked decrease in lean body mass Skin no wounds, skin turgor normal, no jaundice, no petechiae and no mottling Skin Narrative: Scattered ecchymosis most notably bilateral upper extremities Neuro oriented x3, CN's II-XII intact bilaterally, moves all extremities and no focal motor deficits Neuro Narrative: Significant generalized weakness Sensorium / Orientation: awake, alert, oriented to person, oriented to place and oriented to time Speech: speech normal Psych affect normal Psych Narrative: Very pleasant and appropriate interactive Assessment & Plan Assessment/Plan (1) Paroxysmal atrial fibrillation: (2) Acute respiratory failure with hypoxia: (3) CHIN (acute kidney injury): (4) Thrombocytopenia: (5) Anemia requiring transfusions: (6) Leukopenia: (7) Heart failure with reduced ejection fraction: PLAN: Plan Acute hypoxic respiratory failure-Multifactorial(suspected pneumonia/HFrEF/lung CA/COPD) -Nodular infiltrates noted on CT scan but does not seem consistent with her lung CA along with mediastinal lymphadenopathy that is worsened -Antibiotics completed -COVID and respiratory panel are negative -Continue Lasix 20 mg p.o. twice daily -Continue as needed BiPAP and supplemental O2--> no BiPAP needed overnight or this morning -Wean as able -Currently on 3 L nasal cannula at 96 to 100% -I suspect patient will need to be discharged on supplemental oxygen -Patient would likely benefit from palliative care -Continue as needed Roxanol -Awaiting pre-CERT for discharge to skilled facility Acute decompensated heart failure with reduced ejection fraction -Newly worsened EF -Patient now appears to be compensated -Continue Lasix 20 mg twice daily -Continue metoprolol but decrease dose to 25 mg twice daily -Continue low-dose lisinopril -BNP dramatically improved from previous and patient is -2.2 L per for the hospitalization -Echocardiogram from 01/06/2022 showed an EF of 25 to 30% with severe global systolic dysfunction -Had echo in August with an EF of 60 to 65% -Follows with Dr. Champion at [facility] for cardiology at baseline -Cardiology is following here but no intent to perform cardiac catheterization at this time given low platelets -Need outpatient follow-up for further work-up in the future--> will discuss further with cardiology tomorrow as her platelet count seems to be recovering however if lesions identified aspirin and Plavix may not be a good option for her in the long run A. fib with RVR/PAF -Patient has been in and out of A. fib during her hospital stay -Now normal sinus rhythm -Echo as above -Not an anticoagulation candidate secondary to history of severe bleeding plus severe thrombocytopenia and anemia -Continue digoxin -Continue metoprolol but decrease to 25 mg p.o. twice daily Pancytopenia -Likely related to chemotherapy -Chemo is carboplatin and etoposide--> last dose 12/22/2021--> next round plan for 01/12/2022(will need to be delayed secondary to illness) -Transfused 1 unit packed red blood cells on the day of admission -All counts are recovering -Nirmal CBC in a.m. 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 Small cell lung CA -Follows with Dr. Corbett -On carboplatin and etoposide with concurrent radiation -Chemo and radiation will be on hold until she is more functionally improved to tolerate her next round CAD with history of [place] -History of stent placement -Continue baby aspirin -Continue home statin -Previous stents were remote at [facility] Hyperlipidemia -Continue home atorvastatin 10 mg nightly COPD/emphysema -As needed albuterol -Scheduled DuoNebs neck -Hold home Trelegy Ellipta and restart at discharge Osteoporosis -Continue alendronate at discharge Chronic pain -Continue home MS Contin and Percocet GERD with history of GI bleed -Continue home pantoprazole -Continue Carafate DVT prophylaxis -SCDs -Chemoprophylaxis on hold secondary to thrombocytopenia and anemia CODE STATUS -Full code Disposition -[facility] once pre-[facility]ERT is obtained -Patient is medically ready Charges/Coding Visit Charges Inpatient E&M: 64559 Subs Hosp L2
[2022-01-12] MEDS: Atorvastatin Calcium 10 MG Tablet PO (21:27)
[2022-01-13] VITALS (9 sets, daily range): BP systolic 90–106; BP diastolic 52–68; PULSE 60–88; RESP 12–18; TEMP 36.6–36.7; O2SAT 92–98
[2022-01-13] MEDS: 0.9% Saline Lock 10 ML Syringe IV (00:38)
[2022-01-13] MEDS: fentaNYL 100 MCG/2 ML Ampul 50 MCG IV (00:38)
[2022-01-13] MEDS: Pantoprazole Sodium 40 MG Tablet PO (00:49)
--- NOTE | 2022-01-13 05:55 | RAD_ITS ---
STUDY: X-RAY CHEST REASON FOR EXAM: Female, 71 years old. Sob TECHNIQUE: Single AP portable view of the chest. COMPARISON: Comparison is made with prior study dated 01/06/2022. FINDINGS: EKG electrodes are seen. Hyperinflation. Persistent infiltrate in the medial aspect of the right upper lobe. Underlying nodule cannot be excluded. Mild residual bibasilar infiltrates although there has been improvement as compared to prior study. This is worse at the left lung base. Blunting of both costophrenic angles. Normal size heart. Normal mediastinum and valeriy. Normal visualized pulmonary arteries. There is atherosclerotic calcification of the aortic arch with tortuosity. There are diffuse degenerative changes of the visualized thoracic spine. Dextroscoliosis. Multilevel vertebroplasty. Normal visualized ribs, clavicles, and shoulders. There is no demonstrated abnormality of the visualized soft tissue structures of the upper abdomen. RAD/Chest 1 View (Portable) IMPRESSION: Hyperinflation. Persistent bibasilar infiltrates slightly worse on the left side although there has been improved aeration as compared to prior study. Persistent infiltrate in the medial aspect of the right upper lobe. Underlying nodular density cannot be excluded. Electronically Signed: Chad Oakes MD at 8:48 EDT ,
[2022-01-13 07:06] LABS: Absolute Lymphocyte Count 0.35 X10^3/uL (0.83-4.51); Absolute Neutrophil Count 6.2 X10^3/uL (2.0-7.7); Basophil# 0.01 X10^3/uL; Basophil% 0.1 % (0-1); Eosinophil# 0.09 X10^3/uL; Eosinophils% 1.2 % (0-5); Hematocrit 27.5 % (37-47); Hemoglobin 8.8 g/dL (12.0-15.0); Lymphocyte # 0.35 X10^3/ul (0.83-4.51); Lymphocyte % 4.8 % (19-41); Mean Corpuscular Hgb 32.5 pg (27.0-32.0); Mean Corpuscular Volume 101.5 fL (81-99); Mean Platelet Vol. 11.1 fl (6.2-12.0); Monocyte# 0.59 X10^3/uL; Monocyte% 8.2 % (0-10); NRBC Flagged by Analyzer 0 % (0-5); Neutrophil # 6.16 X10^3/uL (2.7-7.7); Neutrophil % 85.3 % (47-70); POSITIVE DIFFERENTIAL YES; Platelet Count 134 K/mm3 (150-450); RBC Distribution Width CV 16.4 % (11.6-14.6); RBC Distribution Width SD 58.9 fl (35.1-43.9); Red Blood Count 2.71 M/mm3 (4.2-5.4); White Blood Count 7.2 K/mm3 (4.4-11.0)
[2022-01-13 07:07] LABS: Differential Indicated SCAN CRITERIA MET
[2022-01-13] MEDS: Ipratropium/Albuterol Sulfate 3 ML AMPUL.NEB INHALATION ×2 (07:09→13:14)
[2022-01-13 07:30] LABS: Differential Comment SCANNED
--- NOTE | 2022-01-13 08:30 | CASEMGMT ---
Discharge Executive Personal Assistant Nicole from the [facility] reached out. Pre-cert has been obtained. [facility] medically ready. HENRY Akins notified. Plan: Suresh Winslow Discharge Executive Personal Assistant
[2022-01-13 08:38] LABS: Anion Gap 4 (5-15); BUN 25 mg/dL (7-18); Calcium,Total 8.8 mg/dL (8.5-10.1); Chloride 99 mmol/L (98-107); Creatinine, Serum 0.68 mg/dL (0.55-1.02); EST Glomerular Filtration Rate 91 mL/min (>60); Est Glom Filt Rate - Afr Amer 110 mL/min (>60); Glucose 112 mg/dL (74-106); Magnesium 1.5 mg/dL (1.6-2.6); Phosphorus 3.9 mg/dL (2.5-4.9); Potassium 4.2 mmol/L (3.5-5.1); Sodium Level 136 mmol/L (136-145)
[2022-01-13] MEDS: morphine SR 15 MG Tablet PO (09:55)
[2022-01-13] MEDS: oxyCODONE 5 MG Tablet 10 MG PO ×2 (09:55→16:02)
[2022-01-13] MEDS: Potassium Chloride Oral Tablet 20 MEQ PO (09:57)
[2022-01-13] MEDS: Aspirin E.C. 81 MG Tablet PO (09:57)
[2022-01-13] MEDS: Magnesium Chloride 64 MG Delay Rel.Tablet 128 MG PO (09:57)
[2022-01-13] MEDS: Digoxin 250 MCG Tablet PO (09:58)
[2022-01-13] MEDS: Lisinopril 2.5 MG Tablet PO (09:58)
[2022-01-13] MEDS: Metoprolol Tartrate 25 MG Tablet PO (09:58)
[2022-01-13] MEDS: Furosemide 20 MG Tablet PO (09:58)
--- NOTE | 2022-01-13 11:45 | TREXTCAR_ITS ---
Diet Diet Order/Speech Therapy: 01/06/22 07:50 Diet: Regular - General Is pt able to select menu?: Yes Routine Orders/Code Status O2 Liters per Minute: 2 at rest and 4 with exertion O2 Frequency: Continuous Keep PO Greater than or Equal to (%): 88 Routine Lab Work: [facility] (01/18/2020) Code Status: Full Code Suggestions for Active Care Change Position every (hours): 2 Therapies Weight Bearing: Full weight bearing Physical Therapy: Eval and Treat Occupational Therapy: Eval and Treat Problem/Diagnosis (1) Paroxysmal atrial fibrillation: Status: Acute Code(s): I48.0 - Paroxysmal atrial fibrillation (2) Acute respiratory failure with hypoxia: Status: Acute Code(s): J96.01 - Acute respiratory failure with hypoxia (3) CHIN (acute kidney injury): Status: Acute Code(s): N17.9 - Acute kidney failure, unspecified (4) Thrombocytopenia: Status: Acute Code(s): D69.6 - Thrombocytopenia, unspecified (5) Anemia requiring transfusions: Status: Acute Code(s): D64.9 - Anemia, unspecified (6) Leukopenia: Status: Acute Code(s): D72.819 - Decreased white blood cell count, unspecified (7) Heart failure with reduced ejection fraction: Status: Acute Code(s): I50.20 - Unspecified systolic (congestive) heart failure Plan Acute hypoxic respiratory failure-Multifactorial(suspected pneumonia/HFrEF/lung CA/COPD) -Nodular infiltrates noted on CT scan but does not seem consistent with her lung CA along with mediastinal lymphadenopathy that is worsened -Antibiotics completed -COVID and respiratory panel are negative -Continue Lasix 20 mg p.o. daily -Continue as needed BiPAP and supplemental O2--> no BiPAP needed overnight or this morning -Wean as able -Currently on 2 L nasal cannula at 98% Acute decompensated heart failure with reduced ejection fraction -Newly worsened EF -Patient now appears to be compensated -Continue Lasix 20 mg daily -Continue metoprolol 25 mg twice daily -Continue low-dose lisinopril -BNP dramatically improved from previous and patient is -2.2 L per for the hospitalization -Echocardiogram from 01/06/2022 showed an EF of 25 to 30% with severe global systolic dysfunction -Had echo in August with an EF of 60 to 65% -Follows with Dr. Champion at [facility] for cardiology at baseline -Cardiology is following here but no intent to perform cardiac catheterization at this time given low platelets -Need outpatient follow-up for further work-up in the future--> will discuss further with cardiology tomorrow as her platelet count seems to be recovering however if lesions identified aspirin and Plavix may not be a good option for her in the long run A. fib with RVR/PAF -Patient has been in and out of A. fib during her hospital stay -normal sinus rhythm -Echo as above -Not an anticoagulation candidate secondary to history of severe bleeding plus severe thrombocytopenia and anemia -Continue digoxin -Continue metoprolol but decrease to 25 mg p.o. 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 Small cell lung CA -Follows with Dr. Corbett -On carboplatin and etoposide with concurrent radiation -Chemo and radiation will be on hold until she is more functionally improved to tolerate her next round CAD with history of GA -History of stent placement -Continue baby aspirin -Continue home statin -Previous stents were remote at [facility] Hyperlipidemia -Continue home atorvastatin 10 mg nightly COPD/emphysema -As needed albuterol -Scheduled DuoNebs neck -Hold home Trelegy Ellipta and restart at discharge Osteoporosis -Continue alendronate at discharge Chronic pain -Continue home MS Contin and Percocet GERD with history of GI bleed -Continue home pantoprazole -Continue Carafate DVT prophylaxis -SCDs -Chemoprophylaxis on hold secondary to thrombocytopenia and anemia CODE STATUS -Full code Disposition -Discharge to [facility] once pre-CERT is obtained -Patient is medically ready Allergies/Procedures Done in Hospital Allergies latex Allergy (Verified 11/13/21 14:30) Rash Penicillins Allergy (Verified 11/13/21 14:30) Anaphylaxis succinylcholine Allergy (Verified 11/13/21 18:56) Anaphylaxis aspirin [ASA] Adverse Reaction (Verified 06/25/22 18:55) Upset Stomach Procedures: 2-D Echocardiogram, Blood transfusion and Intubation Type of Care/Length of Stay Estimated LOS: Convalescent Care Less Than 30 days Type of Care Needed: Skilled Rehab Potential: Good Prognosis: Fair Additional Orders/Day of Discharge Day of Discharge: 01/13/22 Dietary and Speech Recommendations Dietitian Recommendations/Changes: Continue Regular diet RD will order 120mL Ensure Enlive 4x daily with medpass. Follow Up Care Please follow up with your Primary Care Physician in: 2 wks Please Follow Up With: Tobi Champion MD When: In 4 weeks Please Follow Up With: Vic Corbett DO When: as directed Discharge Plan Admission Admit Date/Time: 01/04/22 13:18 Attending Provider: Mirian Hernandez Primary Care Provider: Crissy Lema NP Consulting Providers: Mirian Hernandez ; Jeramy Pineda ; Bridger Jin ; Rita Morales MANAGER SOCIAL RESPONSIBILITY ; Dalton Manning ; Yassine Albert Discharge Orders/Prescriptions Prescriptions: No Action Trelegy Ellipta 100-62.5-25 mcg blister with device 1 ea INHALATION DAILY Label Comments: Inhale 1 Puff as instructed once daily. atorvastatin 10 mg tablet 10 tab QHS sulindac 200 mg tablet 200 tab PO DAILY morphine [MS Contin] 15 mg Tablet Extended Release 15 mg PO BID sodium chloride 1 gram tablet 1,000 mg PO TID Qty: 90 0RF aspirin 325 mg Tablet 325 mg PO DAILY oxycodone-acetaminophen [Percocet] 10-325 mg Tablet 1 tab PO Q6H PRN (Reason: Pain) prednisone 50 mg Tablet 50 mg PO DAILY levofloxacin 750 mg Tablet 750 mg PO DAILY loratadine [Claritin] 10 mg Tablet 10 mg PO DAILY potassium chloride 20 mEq Tablet Extended Release 20 meq PO BID sucralfate 100 mg/mL suspension 10 ml PO 4X/DAY PRN (Reason: GERD) Label Comments: TAKE 10 ML BY MOUTH FOUR TIMES DAILY alendronate 70 mg tablet 70 mg PO SOLIS magnesium oxide 400 mg (241.3 mg magnesium) tablet 400 mg PO DAILY Label Comments: Take 1 tablet by mouth once daily. pantoprazole 40 mg tablet,delayed release (DR/EC) 40 mg PO DAILY PRN (Reason: GERD) Label Comments: Take 1 tablet by mouth once daily. albuterol sulfate 90 mcg/actuation HFA aerosol inhaler 2 inh INHALATION Q4H PRN (Reason: SOB) Label Comments: INHALE 2 PUFFS as instructed EVERY 4 HOURS NEEDED for wheezing/shortness OF breath. Referrals / Follow Up: Crissy Lema NP, MANAGER SOCIAL RESPONSIBILITY-C [Primary Care Provider] -
--- NOTE | 2022-01-13 11:51 | DS.PCM_ITS ---
Providers Date of Admission: 01/04/22 Date of Discharge: 01/13/22 Primary Care Physician: TENISHA Conner Consultations 01/04/22 21:10 Consult: Orthopedics Teacher / Pulmonary Medicine Routine Consulting Provider: Pulmonary Medicine lindsay Chambers Reason for Consult: Acute hypoxic respiratory failure secondary to transfusion reaction EMERGENT Consult: No Notified: Yes Date Notified: 01/04/22 Time Notified: 20:08 Method of Notification: Verbal 01/07/22 15:50 Consult: Cardiology Routine Consulting Provider: Dalton Manning Reason for Consult: cardiomyopathy EMERGENT Consult: No Notified: Yes Date Notified: 01/07/22 Time Notified: 15:50 Method of Notification: Verbal Reason For Visit: hypoxia/pancytopenia Diagnosis Discharge Diagnosis (1) Paroxysmal atrial fibrillation: Status: Acute Code(s): I48.0 - Paroxysmal atrial fibrillation (2) Acute respiratory failure with hypoxia: Status: Acute Code(s): J96.01 - Acute respiratory failure with hypoxia (3) CHIN (acute kidney injury): Status: Acute Code(s): N17.9 - Acute kidney failure, unspecified (4) Thrombocytopenia: Status: Acute Code(s): D69.6 - Thrombocytopenia, unspecified (5) Anemia requiring transfusions: Status: Acute Code(s): D64.9 - Anemia, unspecified (6) Leukopenia: Status: Acute Code(s): D72.819 - Decreased white blood cell count, unspecified (7) Heart failure with reduced ejection fraction: Status: Acute Code(s): I50.20 - Unspecified systolic (congestive) heart failure Plan Acute hypoxic respiratory failure-Multifactorial(suspected pneumonia/HFrEF/lung CA/COPD) -Nodular infiltrates noted on CT scan but does not seem consistent with her lung CA along with mediastinal lymphadenopathy that is worsened -Antibiotics completed -COVID and respiratory panel are negative -Continue Lasix 20 mg p.o. daily -Continue as needed BiPAP and supplemental O2--> no BiPAP needed overnight or this morning -Wean as able -Currently on 2 L nasal cannula at 98% Acute decompensated heart failure with reduced ejection fraction -Newly worsened EF -Patient now appears to be compensated -Continue Lasix 20 mg daily -Continue metoprolol 25 mg twice daily -Continue low-dose lisinopril -BNP dramatically improved from previous and patient is -2.2 L per for the hospitalization -Echocardiogram from 01/06/2022 showed an EF of 25 to 30% with severe global systolic dysfunction -Had echo in August with an EF of 60 to 65% -Follows with Dr. Champion at [facility] for cardiology at baseline -Cardiology is following here but no intent to perform cardiac catheterization at this time given low platelets -Need outpatient follow-up for further work-up in the future--> will discuss further with cardiology tomorrow as her platelet count seems to be recovering however if lesions identified aspirin and Plavix may not be a good option for her in the long run A. fib with RVR/PAF -Patient has been in and out of A. fib during her hospital stay -normal sinus rhythm -Echo as above -Not an anticoagulation candidate secondary to history of severe bleeding plus severe thrombocytopenia and anemia -Continue digoxin -Continue metoprolol but decrease to 25 mg p.o. 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 Small cell lung CA -Follows with Dr. Corbett -On carboplatin and etoposide with concurrent radiation -Chemo and radiation will be on hold until she is more functionally improved to tolerate her next round CAD with history of VA -History of stent placement -Continue baby aspirin -Continue home statin -Previous stents were remote at [facility] Hyperlipidemia -Continue home atorvastatin 10 mg nightly COPD/emphysema -As needed albuterol -Scheduled DuoNebs neck -Hold home Trelegy Ellipta and restart at discharge Osteoporosis -Continue alendronate at discharge Chronic pain -Continue home MS Contin and Percocet GERD with history of GI bleed -Continue home pantoprazole -Continue Carafate DVT prophylaxis -SCDs -Chemoprophylaxis on hold secondary to thrombocytopenia and anemia CODE STATUS -Full code Disposition -Dis[facility] to [facility] once pre-CERT is obtained -Patient is medically ready Medications at Discharge Home Medications atorvastatin 10 mg tablet 10 tab QHS cholesterol 11/13/21 fluticasone fur. 100 mcg-umeclid 62.5 mcg-vilant 25 mcg inhalat.powder (Trelegy Ellipta) 1 ea inhalation DAILY breathing treatment 11/13/21 sodium chloride 1 gram tablet 1,000 mg PO TID #90 tabs 11/15/21 albuterol sulfate 90 mcg/actuation aerosol inhaler 2 inh inhalation Q4H PRN SOB 01/04/22 alendronate 70 mg tablet 70 mg PO SOLIS BONES 01/04/22 loratadine 10 mg tablet (Claritin) 10 mg PO DAILY 01/04/22 magnesium oxide 400 mg (241.3 mg magnesium) tablet 400 mg PO DAILY SUPPLEMENT 01/04/22 pantoprazole 40 mg tablet,delayed release 40 mg PO DAILY PRN GERD 01/04/22 potassium chloride 20 mEq tablet,extended release 20 meq PO BID 01/04/22 sucralfate 100 mg/mL oral suspension 10 ml PO 4X/DAY PRN GERD 01/04/22 acetaminophen 325 mg tablet (Tylenol) 650 mg PO Q6H PRN PRN Pain Score 1-10/Temp > 100.7 F #0 tabs 01/13/22 aspirin 81 mg tablet,delayed release 81 mg PO BREAKFAST #0 tabs 01/13/22 digoxin 250 mcg (0.25 mg) tablet 250 mcg PO DAILY #0 tabs 01/13/22 furosemide 20 mg tablet 20 mg PO DAILY #0 tabs 01/13/22 guaifenesin 1,200 mg tablet, extended release 12 hr (Mucus Relief ER) 1,200 mg PO BID #0 tabs 01/13/22 ipratropium 0.5 mg-albuterol 3 mg (2.5 mg base)/3 mL nebulization soln 3 ml inhalation Q6H.RT #90 mL 01/13/22 lisinopril 2.5 mg tablet 2.5 mg PO DAILY #0 tabs 01/13/22 metoprolol tartrate 25 mg tablet 25 mg PO BID #0 tabs 01/13/22 morphine 15 mg tablet,extended release (MS Contin) 15 mg PO BID PAIN 1 day #2 tabs 01/13/22 oxycodone-acetaminophen 10 mg-325 mg tablet (Percocet) 1 tab PO Q6H PRN Pain 1 day #4 tabs 01/13/22 sennosides 8.6 mg-docusate sodium 50 mg tablet (Stool Softener-Stimulant Laxative) 2 tab PO BID PRN PRN Constipation #0 tabs 01/13/22 Hospital Course Operations None Procedures 2-D Echocardiogram, Blood transfusion, EKG and Intubation Summary of Care Provided Minutes Spent on Discharge: 42 Hospital Course: Mrs. Lua is a 71-year-old white female who presented to the emergency department at [facility] on 01/04/2022 with a chief complaint of shortness of breath. The patient had recently been diagnosed with small cell lung CA and was undergoing chemo and radiation. Over the 3 to 5 days prior to admission she developed fevers, chills, cough with sputum production that was different from her baseline, and shortness of breath. The day prior to ad mission she presented to [place] emergency department at which time a CT scan was performed and showed nodular densities that were new and she was diagnosed with pneumonia. At that time she was placed on Levaquin and a steroid taper and discharged home. Her shortness of breath that worsened since discharge but she noted her chills and fever seem to be improved. With her worsening shortness of breath, she presented to the emergency department here. She reported her T-max at home was 102 degrees but she had no fever in the last 24 hours since she started her antibiotics. Her last chemo was on December 22 at which time she repeat received carboplatin and etoposide. We did discuss her chemo with her oncologist at the time of admission and he did expect her counts to be at the echo at the time of admission. Vital signs on presentation the emergency department show temperature of 98.3, heart rate 97-107, blood pressure 116/59, respiratory rate anywhere from 20-24, and oxygen saturations are 91-98% on 2 L nasal cannula.? There is no documented oxygen saturation on room air at presentation.? Her CBC shows a leukopenia with a white count of 2.9, hemoglobin of 6.3, platelet count of 30,000 and she has a left shift with a neutrophilia at 92.8%.? Absolute neutrophil count is 2.7.? Her chemistry shows a sodium of 142, potassium of 3.2 BUN is 18 and serum creatinine is 1.04 with a baseline serum creatinine of 0.3-0.4.? Liver functions are normal.? Chest here shows COPD related changes and chronic interstitial changes with possible interstitial pneumonia.? No focal consolidation noted.? Her CT done yesterday at [place] showed bilateral upper lung zone nodules and masses concerning for advancing metastatic disease versus infectious process with additional lung nodules noted to be diminished in size and advanced centrilobular emphysema with evidence of pulmonary artery hypertension as well as slightly worsening mediastinal lymphadenopathy. She was admitted to the medical floor and transfusion was ordered at the direction of her oncologist for 2 units packed red blood cells. She was maintained on her antibiotics with Levaquin at the time of admission. And we were instructed to transfuse platelets if she dropped 20,000. She seems slightly dehydrated based on her admitting BUN and serum creatinine when compared to previous and she was given gentle hydration with IV fluids. After her first unit of packed red blood cells and at the initiation of her second unit of packed red blood cells she developed acute respiratory distress/failure that was refractory to aerosols, steroids and BiPAP. She was transferred to the intensive care unit and urgently intubated. Initially thought that her respiratory failure was likely related to TRALI versus acute heart failure with volume overload. She was given 40 mg of Lasix overnight. She was maintained on her antibiotics during that time. But was able to be extubated on 01/06/2021. She developed atrial fibrillation which was a new diagnosis for her on the and an echocardiogram was obtained at that time. The echocardiogram showed an ejection fraction of 25 to 30% with severe global LV hypokinesis. Cardiology was consulted at that time. She unfortunately was deemed not to be cardiac catheterization candidate secondary to severe thrombocytopenia and anemia. Her paroxysmal atrial fibrillation was managed with digoxin and a beta-anmol. She was able to be transferred to the telemetry floor on 01/07/2022. She was maintained on metoprolol 50 mg twice daily and we added Lasix 20 mg p.o. twice daily on 01/08/2022 as well as lisinopril 2.5 mg daily. She had baseline has low blood pressures with systolics typically in the 100s. With the addition of the above medications her systolics were maintained predominantly in the 90s and she was asymptomatic. Prior to discharge on 01/12/2022 we are were able to decrease her metoprolol to 25 mg twice daily and at discharge switch her Lasix to 20 mg daily as she appeared to be getting somewhat dry intravascularly by her lab. She was maintained on nasal cannula at 2 to 4 L up until the time of discharge and will need to continue supplemental oxygen for the time being but is hopeful that she will be able to be weaned off. She is to maintain her goal-directed therapy for heart failure with the metoprolol, lisinopril, and Lasix for the time being. Her anemia did stabilize and her platelet counts are trending up and close to normal at the time of discharge. She was seen by physical and Occupational Therapy throughout her hospital course and felt to need additional therapy prior to returning home. Her functional status was quite poor at the time of discharge and to receive further chemotherapy her strength will need to improve. Her next chemo is due this week however this will be held per discussion with Dr. Corbett prior to discharge. Her sodium was monitored closely with her history of SIADH related to her lung cancer and remained stable throughout her hospital course despite the utilization of diuretics. She was able to be discharged to the [facility] in stable condition on 01/13/2022. Her hospital course and plan was extensively discussed with her and her family prior to discharge. She is to follow-up with Dr. Corbett as directed. She sees Dr. Tobi Champion for cardiology in [place] and we recommended follow-up within the next 4 weeks. It is likely that she will need an echocardiogram in the next 6 to 8 weeks for follow-up on her cardiomyopathy after being on goal-directed therapy. It is possible that cardiac catheterization could be pursued in the future however it was felt by our cardiology team that she would be extremely high risk and if she needed PCI she would have to go on aspirin and Plavix which would need to be held with her ongoing chemotherapy causing intermittent pancytopenia. She is to follow-up with her primary care physician within the next 2 weeks. Discharge diagnoses: Acute hypoxic respiratory failure Pneumonia-resolved HFrEF-currently compensated COPD Cardiomyopathy-EF 25 to 30% New onset PAF-currently sinus rhythm Pancytopenia secondary to chemotherapy-resolving SIADH secondary to lung CA Small cell lung cancer CAD History of myocardial infarction Hyperlipidemia Osteoporosis Chronic pain GERD Physical Exam Const alert, oriented x3 and no apparent distress Constitutional Narrative: Cachectic, older white female, appears much older than stated age, sitting up in bed watching television, appears comfortable and nontoxic, remains on 3 to 4 L nasal cannula General Appearance: cooperative, comfortable and well kempt Orientation / Consciousness: awake Exam Limitations: no limitations Nutritional Appearance: cachectic HEENT normocephalic, head/scalp atraumatic and moist oral mucous membranes HEENT Narrative: Dentures in place, Mallampati 2, no thrush Eyes PERRL and EOMs intact bilaterally Eyes Narrative: Bilateral pale conjunctiva, no scleral icterus Neck no lymphadenopathy, supple and no JVD Resp normal respiratory effort, no retractions, no use of accessory muscles and clear to auscultation bilaterally Resp Narrative: Diffusely diminished but clear Auscultation: Negative for crackles, rales, rhonchi or wheezes Cardio regular rate, regular rhythm, S1 normal heart sound, S2 normal heart sound, no murmurs, no rub, no gallops, no clicks and no JVD GI normal to inspection, nondistended, normoactive bowel sounds, soft to palpation, non-tender and non-distended; Negative for hepatosplenomegaly GI Narrative: Scaphoid abdomen Extremity no clubbing, cyanosis or edema Extremity Narrative: Marked decrease in lean body mass, 2+ pedal pulses Skin no wounds, skin turgor normal, no jaundice, no petechiae and no mottling Skin Narrative: Scattered ecchymosis most notably bilateral upper extremities Neuro oriented x3, CN's II-XII intact bilaterally, moves all extremities and no focal motor deficits Neuro Narrative: Significant generalized weakness Sensorium / Orientation: awake, alert, oriented to person, oriented to place and oriented to time Speech: speech normal Psych affect normal Psych Narrative: Very pleasant and appropriate interactive but intermittently tearful as she is not excited about having to go to a penitentiary facility for rehab Medical Records Data Medical Nutrition Assessment Dietitian: Malnutrition Criteria Met Start: 01/05/22 09:45 Freq: Status: Active Protocol: Document 01/11/22 15:20 (Rec: 01/11/22 15:20 [id number]) Nutrition Malnutrition Evidence of Malnutrition Exists Yes Malnutrition (moderate): Chronic Evidenced By Suboptimal Energy Intake ( Moderate),Physical Changes ( Moderate) Clinical Problem Chronic Disease or Condition Related Malnutrition Etiology moderate, chronic malnutrition related to inadequate energy intake w/ increased energy needs d/t cancer Signs/Symptoms as evidenced by estimated PO intake meeting <75% of estimated energy needs x 3 months; obvious, moderate muscle wasting/fat loss noted in clavicles, orbital, temporal, acromion areas. Status Active Problem Recommendation Dietitian Recommendations/Changes Continue Regular diet RD will order 120mL Ensure Enlive 4x daily with medpass. Weight / BMI Weight Weight: 41.6 kg Body Mass Index (BMI) 21.3 ABG / Lab / Microbiology Data Result Diagrams: 01/13/22 06:50 01/13/22 06:50 Laboratory: Laboratory Results - last 24 hr 01/13/22 06:50: WBC 7.2, RBC 2.71 L, Hgb 8.8 L, Hct 27.5 L, MCV 101.5 H, MCH 32.5 H, MCHC 32.0, RDW Std Deviation 58.9 H, RDW Coeff of Surinder 16.4 H, Plt Count 134 L, MPV 11.1, Immature Gran % (Auto) 0.400, Neut % (Auto) 85.3 H, Lymph % (Auto) 4.8 L, [place] % (Auto) 8.2, Eos % (Auto) 1.2, Baso % (Auto) 0.1, Absolute Neuts (auto) 6.2, Absolute Lymphs (auto) 0.35 L, Nucleated RBC % 0, Differential Comment SCANNED 01/13/22 06:50: Sodium 136, Potassium 4.2, Chloride 99, Carbon Dioxide 33.0 H, Anion Gap 4 L, BUN 25 H, Creatinine 0.68, Estim Creat Clear Calc 33.40, Est GFR (MDRD) Af Amer 110, Est GFR (MDRD) Non-Af 91, BUN/Creatinine Ratio 37.0 H, Glucose 112 H, Calcium 8.8, Phosphorus 3.9, Magnesium 1.5 L Microbiology: Microbiology 01/13/22 10:00 Nasal Secretion SARS-CoV-2 Antigen (Rapid) - Final 01/07/22 21:35 Stool Stool Occult Blood (RODRIGUE) - Final Occult Blood Positive 01/04/22 20:30 Sputum, Tracheal Aspirate Gram Stain - Final 01/04/22 20:30 Sputum, Tracheal Aspirate Respiratory Culture - Final Presumptive C albicans 01/04/22 21:50 Urine Catheter - Bailey Legionella Antigen - Final 01/04/22 21:50 Urine Catheter - Bailey Streptococcus pneumoniae Antigen (M - Final 01/04/22 14:45 Mucosa - Nasopharyngeal Respiratory Panel (PCR) - Final Radiography Diagnostic Testing: Radiology Impression Chest X-Ray 01/13/22 05:55 IMPRESSION: Hyperinflation. Persistent bibasilar infiltrates slightly worse on the left side although there has been improved aeration as compared to prior study. Persistent infiltrate in the medial aspect of the right upper lobe. Underlying nodular density cannot be excluded. Electronically Signed: Chad Oakes MD at 8:48 EDT , D/C Instructions Discharge Diet: No restrictions and 8 Cup Fluid Restriction Please Follow Up With: Tobi Champion MD Meaningful Use Info Meaningful Use Diagnoses (Choose all that apply): None applicable Discharge Plan Admission Admit Date/Time: 01/04/22 13:18 Primary Reason for Your Visit: Shortness of breath Attending Provider: Mirian Hernandez Primary Care Provider: Crissy Lema NP Consulting Providers: Mirian Hernandez ; Jeramy Pineda ; Bridger Jin ; Rita Morales BARREL LATHE OPERATOR OUTSIDE ; Dalton Manning ; Yassine Albert Discharge Orders/Prescriptions Prescriptions: New acetaminophen [Tylenol] 325 mg Tablet 650 mg PO Q6H PRN PRN (Reason: Pain Score 1-10/Temp > 100.7 F) Qty: 0 0RF digoxin 250 mcg (0.25 mg) Tablet 250 mcg PO DAILY Qty: 0 0RF furosemide 20 mg Tablet 20 mg PO DAILY Qty: 0 0RF Mucus Relief ER 1,200 mg Tablet Extended Release 12hr 1,200 mg PO BID Qty: 0 0RF ipratropium-albuterol 0.5 mg-3 mg(2.5 mg base)/3 mL Solution For Nebulization 3 ml inhalation Q6H.RT Qty: 90 0RF sennosides-docusate sodium [Stool Softener-Stimulant Laxat] 8.6-50 mg Tablet 2 tab PO BID PRN PRN (Reason: Constipation) Qty: 0 0RF lisinopril 2.5 mg Tablet 2.5 mg PO DAILY Qty: 0 0RF metoprolol tartrate 25 mg Tablet 25 mg PO BID Qty: 0 0RF aspirin 81 mg Tablet,Delayed Release (Dr/Ec) 81 mg PO BREAKFAST Qty: 0 0RF Continued Trelegy Ellipta 100-62.5-25 mcg blister with device 1 ea INHALATION DAILY Label Comments: Inhale 1 Puff as instructed once daily. atorvastatin 10 mg tablet 10 tab QHS sodium chloride 1 gram tablet 1,000 mg PO TID Qty: 90 0RF loratadine [Claritin] 10 mg Tablet 10 mg PO DAILY potassium chloride 20 mEq Tablet Extended Release 20 meq PO BID sucralfate 100 mg/mL suspension 10 ml PO 4X/DAY PRN (Reason: GERD) Label Comments: TAKE 10 ML BY MOUTH FOUR TIMES DAILY alendronate 70 mg tablet 70 mg PO SOLIS magnesium oxide 400 mg (241.3 mg magnesium) tablet 400 mg PO DAILY Label Comments: Take 1 tablet by mouth once daily. pantoprazole 40 mg tablet,delayed release (DR/EC) 40 mg PO DAILY PRN (Reason: GERD) Label Comments: Take 1 tablet by mouth once daily. albuterol sulfate 90 mcg/actuation HFA aerosol inhaler 2 inh INHALATION Q4H PRN (Reason: SOB) Label Comments: INHALE 2 PUFFS as instructed EVERY 4 HOURS NEEDED for wheezing/shortness OF breath. oxycodone-acetaminophen [Percocet] 10-325 mg Tablet 1 tab PO Q6H PRN (Reason: Pain) 1 Days Qty: 4 0RF morphine [MS Contin] 15 mg Tablet Extended Release 15 mg PO BID 1 Days Qty: 2 0RF Discontinued sulindac 200 mg tablet 200 tab PO DAILY aspirin 325 mg Tablet 325 mg PO DAILY prednisone 50 mg Tablet 50 mg PO DAILY levofloxacin 750 mg Tablet 750 mg PO DAILY Referrals / Follow Up: Tobi Champion MD [Non-Staff] - Within 1 Month (For new cardiomyopathy) Vic Corbett DO [Med Staff - Active Staff] - See Referral Note (as scheduled) Crissy Lema NP, [employer]REL LAT[employer] OPERATOR OUTSIDE-C [Primary Care Provider] - Within 2 Weeks Disposition Disposition (needs filled in before D/C Order can be placed): Care Home Facility Charges/Coding Visit Charges Inpatient E&M: 18713 SNF Disch >30 Min
--- NOTE | 2022-01-13 13:57 | PHA.DC.MR ---
Pharmacy Service has performed discharge medication reconciliation for this patient upon transfer to [facility]. Home Medications atorvastatin 10 mg tablet 10 tab QHS cholesterol 11/13/21 fluticasone fur. 100 mcg-umeclid 62.5 mcg-vilant 25 mcg inhalat.powder (Trelegy Ellipta) 1 ea inhalation DAILY breathing treatment 11/13/21 sodium chloride 1 gram tablet 1,000 mg PO TID #90 tabs 11/15/21 albuterol sulfate 90 mcg/actuation aerosol inhaler 2 inh inhalation Q4H PRN SOB 01/04/22 alendronate 70 mg tablet 70 mg PO SOLIS BONES 01/04/22 loratadine 10 mg tablet (Claritin) 10 mg PO DAILY 01/04/22 magnesium oxide 400 mg (241.3 mg magnesium) tablet 400 mg PO DAILY SUPPLEMENT 01/04/22 pantoprazole 40 mg tablet,delayed release 40 mg PO DAILY PRN GERD 01/04/22 potassium chloride 20 mEq tablet,extended release 20 meq PO BID 01/04/22 sucralfate 100 mg/mL oral suspension 10 ml PO 4X/DAY PRN GERD 01/04/22 acetaminophen 325 mg tablet (Tylenol) 650 mg PO Q6H PRN PRN Pain Score 1-10/Temp > 100.7 F #0 tabs 01/13/22 aspirin 81 mg tablet,delayed release 81 mg PO BREAKFAST #0 tabs 01/13/22 digoxin 250 mcg (0.25 mg) tablet 250 mcg PO DAILY #0 tabs 01/13/22 furosemide 20 mg tablet 20 mg PO DAILY #0 tabs 01/13/22 guaifenesin 1,200 mg tablet, extended release 12 hr (Mucus Relief ER) 1,200 mg PO BID #0 tabs 01/13/22 ipratropium 0.5 mg-albuterol 3 mg (2.5 mg base)/3 mL nebulization soln 3 ml inhalation Q6H.RT #90 mL 01/13/22 lisinopril 2.5 mg tablet 2.5 mg PO DAILY #0 tabs 01/13/22 metoprolol tartrate 25 mg tablet 25 mg PO BID #0 tabs 01/13/22 morphine 15 mg tablet,extended release (MS Contin) 15 mg PO BID PAIN 1 day #2 tabs 01/13/22 oxycodone-acetaminophen 10 mg-325 mg tablet (Percocet) 1 tab PO Q6H PRN Pain 1 day #4 tabs 01/13/22 sennosides 8.6 mg-docusate sodium 50 mg tablet (Stool Softener-Stimulant Laxative) 2 tab PO BID PRN PRN Constipation #0 tabs 01/13/22 The patient's discharge medication list was reviewed for discrepancies and discrepancies were resolved.
[2022-01-13] MEDS: Sodium Chloride 1 GM Tablet PO (14:19)
--- NOTE | 2022-01-13 15:42 | CASEMGMT ---
Patient was approved to go to [facility] at [place]. SW notified physician. SW completed a 7000 in [facility]. HENRY arranged for patient to get picked up at 4 via wc van by [facility]. SW sent d/c orders, COVID test, and hop picker time to [facility]. SW notified patient. Patient said she notified her family. RN and escrow secretary were also notified. All in agreement with discharge plan. Plan: d/c to [facility] under skilled level of care on a 7000. [facility] transported patient via wheelchair van. Mable MONK
== END 2022-01-13 16:20 | DRG 208 ==
LOC: ED 13:16 → PCU 14:16 → ICU 20:58 → PCU 01-06 16:41
PROVIDERS: Internal Medicine; Internal Medicine Critical Care Medicine; Internal Medicine Interventional Cardiology; Admitting Provider Internal Medicine; Emergency Provider Emergency Medicine; PCP Nurse Practitioner Adult Health; Visit Provider Internal Medicine
DX: J18.9 Pneumonia, unspecified organism (principal); J96.01 Acute respiratory failure with hypoxia; D61.810 Antineoplastic chemotherapy induced pancytopenia; I21.4 Non-ST elevation (NSTEMI) myocardial infarction; I50.21 Acute systolic (congestive) heart failure; E44.0 Moderate protein-calorie malnutrition; E22.2 Syndrome of inappropriate secretion of antidiuretic hormone; C34.90 Malignant neoplasm of unspecified part of unspecified bronchus or lung; N17.9 Acute kidney failure, unspecified; I42.9 Cardiomyopathy, unspecified; D70.1 Agranulocytosis secondary to cancer chemotherapy; J43.2 Centrilobular emphysema; I27.20 Pulmonary hypertension, unspecified; I48.0 Paroxysmal atrial fibrillation; I11.0 Hypertensive heart disease with heart failure; D69.6 Thrombocytopenia, unspecified; E87.6 Hypokalemia; I25.10 Atherosclerotic heart disease of native coronary artery without angina pectoris; M40.209 Unspecified kyphosis, site unspecified; E78.5 Hyperlipidemia, unspecified; K21.9 Gastro-esophageal reflux disease without esophagitis; E86.0 Dehydration; I25.2 Old myocardial infarction; D64.9 Anemia, unspecified; R19.5 Other fecal abnormalities; T80.89XA Other complications following infusion, transfusion and therapeutic injection, initial encounter; Z79.82 Long term (current) use of aspirin; G89.4 Chronic pain syndrome; R59.0 Localized enlarged lymph nodes; M81.0 Age-related osteoporosis without current pathological fracture; F32.A Depression, unspecified; Z79.83 Long term (current) use of bisphosphonates; Z79.891 Long term (current) use of opiate analgesic; Z20.822 Contact with and (suspected) exposure to COVID-19; Z87.891 Personal history of nicotine dependence; T45.1X5A Adverse effect of antineoplastic and immunosuppressive drugs, initial encounter; Y84.8 Other medical procedures as the cause of abnormal reaction of the patient, or of later complication, without mention of misadventure at the time of the procedure; Y92.239 Unspecified place in hospital as the place of occurrence of the external cause; Z68.21 Body mass index [BMI] 21.0-21.9, adult; Z95.5 Presence of coronary angioplasty implant and graft
CPT/HCPCS: 31500; 31720; 36415; 36600; 71045; 80048; 80053; 82274; 82803; 83735; 83880; 84100; 84443; 84484; 85025; 86644; 86850; 86900; 86901; 86920; 86922; 87070; 87205; 87426; 87449; 87633; 87641; 93005; 93306; 94002; 94003; 94640; 94660; 94667; 94762; 97110; 97162; 97166; 97530; 97535; 97802; 99251; 99285; 99406; J7030; J7040; J7050; P9040; A4216; G0463; J3010; J3490

== ENCOUNTER → 2022-01-25 | Outpatient (CLI) | payer BC, MEDICARE, SELFPAY ==
--- NOTE | 2022-01-25 09:07 | ECHOD_ITS ---
Reason For Study: Lung Cancer Procedure This was a 2D Doppler, Color Flow transthoracic echocardiogram. Myocardial strain analysis was performed in this exam to aid in the assessment of cardiac function. Exam performed in department. Left Ventricle Normal LV size. Left ventricular systolic function is normal. The estimated ejection fraction is 60 %. Stage 1 diastolic dysfunction. No regional wall motion abnormalities noted. Right Ventricle Normal RV size. Normal systolic function. Atria The left atrium is mildly enlarged. Normal right atrium. Mitral Valve Normal mitral valve. Tricuspid Valve Normal tricuspid valve. Mild tricuspid valve insufficiency. Pulmonary artery systolic pressure is 39 mmHg. Aortic Valve Trisinus/trileaflet aortic valve. Mild focal aortic valve thickening. Pulmonic Valve Normal pulmonic valve. Great Vessels Normal aortic root. The pulmonary is not well visualized. Normal inferior vena cava. Pericardium/Pleural No pericardial effusion. MMode/2D Measurements & Calculations LVIDd: 4.5 cm IVSd: 0.77 cm LA dimension: 3.4 cm LVIDs: 2.8 cm LVPWd: 0.76 cm RVDd: 4.2 cm FS: 36.5 % LAV(MOD-bp): 64.2 ml LVAd ap4: 26.7 cm2 SV(MOD-sp4): 45.4 ml LAV(MOD-bp) Indexed: 49.8 ml/m2 LVLd ap4: 7.3 cm LAV(MOD-sp2): 59.9 ml EDV(MOD-sp4): 80.0 ml LAV(MOD-sp4): 65.5 ml EDV(sp4-el): 82.6 ml LVAs ap4: 15.5 cm2 LVLs ap4: 6.0 cm ESV(MOD-sp4): 34.5 ml ESV(sp4-el): 33.9 ml EF(MOD-sp4): 56.8 % EF(sp4-el): 59.0 % SV(sp4-el): 48.8 ml LA A4 area: 23.2 cm2 RA A4 area: 19.3 cm2 Time Measurements MV dec time: 0.21 sec Doppler Measurements & Calculations MV E max nico: 87.4 cm/sec Lat Peak E' Nico: 15.4 cm/sec Med Peak E' Nico: 10.2 cm/sec MV A max nico: 100.5 cm/sec E/E' lat: 5.7 E/E' med: 8.6 MV E/A: 0.87 MV V2 max: 101.0 cm/sec MV P1/2t max nico: 97.9 cm/sec Ao V2 max: 179.7 cm/sec MV max P.1 mmHg MV P1/2t: 69.4 msec Ao max P.9 mmHg MV V2 mean: 59.5 cm/sec MV mean P.6 mmHg MV dec slope: 413.3 cm/sec2 MV V2 VTI: 37.5 cm MVA(P1/2t): 3.2 cm2 LV V1 max: 123.8 cm/sec PA V2 max: 140.2 cm/sec TR max nico: 289.2 cm/sec LV V1 max P.1 mmHg PA V2 mean: 89.0 cm/sec TR max P.5 mmHg LV V1 mean P.8 mmHg LV V1 mean: 76.7 cm/sec LV V1 VTI: 25.5 cm ECHO/Echo Complete Interpretation Summary Normal LV size. Left ventricular systolic function is normal. The estimated ejection fraction is 60 %. Stage 1 diastolic dysfunction. The left atrium is mildly enlarged. The global longitudinal strain is normal. The global longitudinal strain = -17. 5 % (normal). Ordering Physician: Vic Corbett Referring Physician: Vci Corbett Performed By: Nick Ruiz RCS
== END | disposition home or self-care (01) ==
LOC: CVS 09:05
PROVIDERS: PCP Nurse Practitioner Adult Health; Referring Provider Internal Medicine Hematology & Oncology; Visit Provider Internal Medicine Hematology & Oncology
DX: C34.90 Malignant neoplasm of unspecified part of unspecified bronchus or lung (principal); I50.21 Acute systolic (congestive) heart failure; R94.30 Abnormal result of cardiovascular function study, unspecified
CPT/HCPCS: 93306

== ENCOUNTER → 2022-02-18 | Outpatient (CLI) | payer BC, MEDICARE, SELFPAY | END | disposition home or self-care (01) | LOC: LABSPEC 15:29 | PROVIDERS: PCP Nurse Practitioner Adult Health; Referring Provider Internal Medicine Hematology & Oncology; Visit Provider Internal Medicine Hematology & Oncology | DX: R69 Illness, unspecified (principal) | CPT/HCPCS: 86850; 86900; 86901; 86920; 86922 ==

== ENCOUNTER 2022-02-21 09:07 | Outpatient (CLI) | payer MEDICARE, BC, SELFPAY ==
[2022-02-21 09:38] VITALS: BP 128/67; PULSE 91; RESP 16; TEMP 36.6; O2SAT 98; BMI 19.5
[2022-02-21] MEDS: 0.9% NaCl Peripheral Flush Adult/Peds IV (09:48)
[2022-02-21 10:06] VITALS: BP 122/62; PULSE 81; RESP 16; TEMP 36.9; O2SAT 100
[2022-02-21 11:06] VITALS: BP 125/69; PULSE 84; RESP 16; TEMP 37; O2SAT 98
[2022-02-21 11:46] VITALS: BP 129/65; PULSE 85; RESP 16; TEMP 36.5; O2SAT 100
[2022-02-21] MEDS: Furosemide 20 MG/2 ML VIAL IV (11:47)
== END 2022-02-21 23:59 | disposition home or self-care (01) ==
LOC: MEDOUTP 09:08
PROVIDERS: PCP Nurse Practitioner Adult Health; Referring Provider Internal Medicine Hematology & Oncology; Visit Provider Internal Medicine Hematology & Oncology
DX: Z51.89 Encounter for other specified aftercare (principal); D64.9 Anemia, unspecified
CPT/HCPCS: 36430; 86850; 86900; 86901; 86920; 86922; J7040; P9016; A4216; J1940

== ENCOUNTER 2022-05-11 10:13 | Inpatient (IN) | payer BC, MEDICARE, SELFPAY ==
[2022-05-11] VITALS (30 sets, daily range): BP systolic 82–134; BP diastolic 47–84; PULSE 72–211; RESP 12–36; TEMP 36.6–38.8; O2SAT 3–100; BMI 24.3; BMI 20.5
--- NOTE | 2022-05-11 11:07 | RAD_ITS ---
STUDY: X-RAY CHEST REASON FOR EXAM: Female, 72 years old. Shortness of breath and dyspnea. TECHNIQUE: Single AP portable view of the chest. COMPARISON: Comparison is made with prior examination dated 01/13/2022. FINDINGS: EKG electrodes are seen. Masslike infiltration in the right upper lobe abutting the right minor fissure. This measures 7.3 cm x 4.8 mm. This may represent either consolidation versus a possible mass. Increased linear markings in the left upper lobe as well. There is no demonstrated pleural abnormality. Normal size heart. Normal mediastinum and valeriy. Normal visualized pulmonary arteries. There is atherosclerotic calcification of the aortic arch with tortuosity. Prior vertebroplasty of a lower dorsal and upper lumbar vertebrae. Normal visualized ribs, clavicles, and shoulders. There is no demonstrated abnormality of the visualized soft tissue structures of the upper abdomen. RAD/Chest 1 View (Portable) IMPRESSION: Masslike infiltration in the right upper lobe. This measures 7.3 cm x 4.8 cm. Increased linear markings at the left upper lobe. Correlation with CT scan is recommended for further evaluation. Electronically Signed: Chad Oakes MD at 12:47 EST ,
--- NOTE | 2022-05-11 11:07 | EKG12_ITS ---
Test Reason : COLD SXN Blood Pressure : / mmHG Vent. Rate : 108 BPM Atrial Rate : 108 BPM P-R Int : 142 ms QRS Dur : 086 ms QT Int : 330 ms P-R-T Axes : 017 034 037 degrees QTc Int : 442 ms Sinus tachycardia with occasional Premature ventricular complexes Low voltage QRS (Limb Leads) Nonspecific ST abnormality Abnormal ECG Confirmed by PAULINA HASKINS, AARTI ([id number]), technical editor JESSIE HORNE ([id number]) on 05/12/2022 8:29:14 AM Referred By: Confirmed By:AARTI GALLARDO MD
--- NOTE | 2022-05-11 11:09 | EDS_ITS ---
HPI History of Present Illness Chief Complaint: Cold Sx Detail of Chief Complaint: Shortness of breath x2 days Informant: patient Narrative Narrative: Patient presents with shortness of breath x2 days. Patient complains of exertional dyspnea. Patient has history of COPD and is on 3 L of home O2 at all times. Patient states that she had to bump it up to 4 L because she could not breathe right. Patient is coughing. She developed a fever last evening. Cough productive of yellow-brown phlegm. 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 Patient not currently smoking. She does describe some diffuse chest discomfort. Patient does have history of coronary artery disease. Patient currently on Eliquis and digoxin. She denies sick contacts. [facility] Medical History (Updated 05/11/22 @ 14:[address] Surinder Ahuja DO) AAA (abdominal aortic aneurysm) Anemia requiring transfusions CAD (coronary artery disease) CAD (coronary artery disease) COPD exacerbation Heart attack Heart failure with reduced ejection fraction History of GI bleed Kidney stone Lung cancer Osteoporosis Paroxysmal atrial fibrillation SIADH (syndrome of inappropriate ADH production) Small cell lung cancer Tobacco abuse Home Medications atorvastatin 10 mg tablet 10 tab QHS cholesterol 11/13/21 [History Last Taken 1 Month Ago ~12/04/21] fluticasone fur. 100 mcg-umeclid 62.5 mcg-vilant 25 mcg inhalat.powder (Trelegy Ellipta) 1 ea inhalation DAILY breathing treatment 11/13/21 [History Last Taken 01/03/22] sodium chloride 1 gram tablet 1,000 mg PO TID #90 tabs 11/15/21 [Rx Last Taken 01/03/22] albuterol sulfate 90 mcg/actuation aerosol inhaler 2 inh inhalation Q4H PRN SOB 01/04/22 [History Last Taken 01/04/22] alendronate 70 mg tablet 70 mg PO SOLIS BONES 01/04/22 [History Last Taken 01/02/22] loratadine 10 mg tablet (Claritin) 10 mg PO DAILY 01/04/22 [History Last Taken 01/04/22] magnesium oxide 400 mg (241.3 mg magnesium) tablet 400 mg PO DAILY SUPPLEMENT 01/04/22 [History Last Taken 01/03/22] pantoprazole 40 mg tablet,delayed release 40 mg PO DAILY PRN GERD 01/04/22 [History Last Taken Unknown] potassium chloride 20 mEq tablet,extended release 20 meq PO BID 01/04/22 [History Last Taken 01/03/22] sucralfate 100 mg/mL oral suspension 10 ml PO 4X/DAY PRN GERD 01/04/22 [History Last Taken Unknown] acetaminophen 325 mg tablet (Tylenol) 650 mg PO Q6H PRN PRN Pain Score 1-10/Temp > 100.7 F #0 tabs 01/13/22 [Rx Last Taken Unknown] aspirin 81 mg tablet,delayed release 81 mg PO BREAKFAST #0 tabs 01/13/22 [Rx Last Taken Unknown] digoxin 250 mcg (0.25 mg) tablet 250 mcg PO DAILY #0 tabs 01/13/22 [Rx Last Taken Unknown] furosemide 20 mg tablet 20 mg PO DAILY #0 tabs 01/13/22 [Rx Last Taken Unknown] guaifenesin 1,200 mg tablet, extended release 12 hr (Mucus Relief ER) 1,200 mg PO BID #0 tabs 01/13/22 [Rx Last Taken Unknown] ipratropium 0.5 mg-albuterol 3 mg (2.5 mg base)/3 mL nebulization soln 3 ml inhalation Q6H.RT #90 mL 01/13/22 [Rx Last Taken Unknown] lisinopril 2.5 mg tablet 2.5 mg PO DAILY #0 tabs 01/13/22 [Rx Last Taken Unknown] metoprolol tartrate 25 mg tablet 25 mg PO BID #0 tabs 01/13/22 [Rx Last Taken Unknown] morphine 15 mg tablet,extended release (MS Contin) 15 mg PO BID PAIN 1 day #2 tabs 01/13/22 [Rx Last Taken Unknown] oxycodone-acetaminophen 10 mg-325 mg tablet (Percocet) 1 tab PO Q6H PRN Pain 1 day #4 tabs 01/13/22 [Rx Last Taken Unknown] sennosides 8.6 mg-docusate sodium 50 mg tablet (Stool Softener-Stimulant Laxative) 2 tab PO BID PRN PRN Constipation #0 tabs 01/13/22 [Rx Last Taken Unknown] Allergy/AdvReac Type Severity Reaction Status Date / Time latex Allergy Rash Verified 05/11/22 10:21 Penicillins Allergy Anaphylaxis Verified 05/11/22 10:21 succinylcholine Allergy Anaphylaxis Verified 05/11/22 10:21 aspirin [ASA] AdvReac Upset Verified 05/11/22 10:21 Stomach Family History Other CAD (coronary artery disease) Heart disease Hypertension Surgical History (Updated 01/21/22 @ 00:01 by Niurka Madrigal) S/P AAA repair S/P PTCA (percutaneous transluminal coronary angioplasty) Social History Smoking Status: Former smoker alcohol intake: never substance use type: does not use ROS ROS ED Review of Systems ROS Unobtainable: other Constitutional Constitutional ED: Reports fever(s) and lethargy; Denies chills, sweats or weight loss Eyes Eyes: Denies blurry vision, change in vision or diplopia ENT ENT ED: Denies rhinorrhea or sore throat Cardiovascular Cardiovascular: Reports chest pain; Denies orthopnea or racing heartbeat Respiratory/Chest Respiratory/Chest: Reports cough, dyspnea, dyspnea on exertion and sputum; Denies orthopnea Gastrointestinal Gastrointestinal: Denies abdominal pain, diarrhea, nausea or vomiting Genitourinary Genitourinary ED: Denies dysuria, hematuria or urinary frequency Musculoskeletal Musculoskeletal: Denies arthralgias, back pain, myalgias or neck pain Integumentary Denies abscess, Abrasions or rash Neurologic Neurologic: Denies headache(s) or weakness Psychiatric Psychiatric: Denies anxiety, depression or suicidal thoughts Endocrine Endocrinology: Denies polydipsia, polyphagia or polyuria Hematologic/Lymphatic Hematologic/Lymphatic: Denies easy bleeding, easy bruising or lymphadenopathy Allergic/Immunologic Allergic/Immunologic ED: Denies mouth swelling, tongue swelling or urticaria EXAM Physical Exam Const Vital Signs: 05/11/22 10:14 05/11/22 10:21 05/11/22 10:23 Temperature 101.9 F H 101.9 F H Temperature Source Oral Oral Pulse Rate 112 H 112 H Respiratory Rate 24 H 20 H Respiratory Effort Short of Breath Respiratory Depth Shallow Respiratory Pattern Tachypnea Blood Pressure 115/62 103/60 Blood Pressure Mean 79 74 Pulse Ox 3 96 Oxygen Delivery Method Nasal Cannula Nasal Cannula Nasal Cannula Oxygen Flow Rate (L/min) 3 3 05/11/22 11:24 05/11/22 11:21 05/11/22 12:24 Temperature 101.4 F H 99.1 F Temperature Source Temporal Oral Pulse Rate 120 H 110 H 104 H Respiratory Rate 24 H 18 20 H Respiratory Effort Respiratory Depth Respiratory Pattern Hyperpnea Blood Pressure 110/78 97/53 L Blood Pressure Mean 88 67 Pulse Ox 99 97 Oxygen Delivery Method Room Air Nasal Cannula Oxygen Flow Rate (L/min) 3 05/11/22 13:10 05/11/22 14:24 05/11/22 14:24 Temperature 98 F 98.6 F 98.6 F Temperature Source Temporal Oral Oral Pulse Rate 89 80 80 Respiratory Rate 16 18 18 Respiratory Effort Respiratory Depth Respiratory Pattern Blood Pressure 87/50 L 88/47 L 88/47 L Blood Pressure Mean 62 60 60 Pulse Ox 96 96 96 Oxygen Delivery Method Nasal Cannula Nasal Cannula Oxygen Flow Rate (L/min) 3 3 05/11/22 14:39 05/11/22 14:53 Temperature 98.6 F Temperature Source Oral Pulse Rate 84 Respiratory Rate 15 Respiratory Effort Respiratory Depth Respiratory Pattern Blood Pressure 82/48 L 94/48 L Blood Pressure Mean 59 63 Pulse Ox 95 Oxygen Delivery Method Nasal Cannula Oxygen Flow Rate (L/min) 3 Positive well nourished and well developed General Appearance ED: well developed and NAD HEENT Reports TM's clear and moist mucous membranes normocephalic and atraumatic; Negative for trauma or tenderness Tympanic Membrane ED: Yes TM's clear Eyes PERRL and EOMs intact bilaterally General Eye ED: Negative for pale conjunctiva or scleral icterus Neck no lymphadenopathy, supple and no JVD General: Negative for tenderness Chest Wall inspection of chest normal and palpation of chest normal Chest: Negative for tenderness Resp normal respiratory effort Resp Narrative: Patient was mild tachypnea. Diminished breath sounds bilaterally with occasional faint expiratory wheezes noted. No excess or muscle use or retractions noted. Effort and Inspection: Negative for respiratory distress or pain with movement Auscultation: Negative for rhonchi, wheezes or diminished lung sounds Cardio regular rhythm, S1 normal heart sound, S2 normal heart sound and no murmurs Rate: tachycardic Peripheral Pulses: pulses 2+ throughout GI normal to inspection, nondistended, normoactive bowel sounds, soft to palpation, non-tender, non-distended and no masses Back/Spine no CVA tenderness and no thoracic nor lumbar tenderness Extremity normal to inspection General Extremety ED: Negative for edema General Extremity: Negative for edema Neuro oriented x3, CN's II-XII intact bilaterally, no sensory deficits noted and gait normal Sensorium / Orientation: awake, alert, oriented to person, oriented to place and oriented to time Motor Exam: strength 5/5 throughout and strength abnormal Psych mental status grossly normal Skin no rashes or lesions noted and no wounds MDM MDM MDM Narrative Medical decision making narrative: IV line established. Patient was given normal saline. Patient was given Tylenol. Patient had blood cultures ordered. White count obtained showed a white count of 9.5 and hemoglobin was 6.5. Chemistries unremarkable. Troponin was normal. Lactate was 0.8. Patient was do her regular pain medications I did give her 4 mg of morphine IV. Patient did have a transient hypotension which responded to fluids. Patient was started on Levaquin 750 mg IV after noting large consolidation right upper lobe which I felt was a pneumonia. Radiology recommended obtaining a CT scan of the chest to evaluate further. This was performed and again shows a large consolidation right upper lobe as well as infiltrate left lower lobe. Rapid COVID and rapid influenza both negative. Lab Data Attestation: I reviewed the patient's lab results. Labs: Laboratory Results - last 24 hr 05/11/22 05/11/22 05/11/22 11:50 11:50 11:50 WBC 9.5 RBC 2.17 L Hgb 6.5 L Hct 22.6 L MCV 104.1 H MCH 30.0 MCHC 28.8 L RDW Std Deviation 62.7 H RDW Coeff of Surinder 16.4 H Plt Count 165 MPV 11.5 Immature Gran % (Auto) 1.400 H Neut % (Auto) 90.9 H Lymph % (Auto) 2.2 L [place] % (Auto) 5.4 Eos % (Auto) 0.0 Baso % (Auto) 0.1 Absolute Neuts (auto) 8.6 H Absolute Lymphs (auto) 0.21 L Nucleated RBC % 0 Differential Comment SCANNED Sodium Cancelled Potassium Cancelled Chloride Cancelled Carbon Dioxide Cancelled Anion Gap Cancelled BUN Cancelled Creatinine Cancelled Estim Creat Clear Calc Cancelled Est GFR (MDRD) Af Amer Cancelled Est GFR (MDRD) Non-Af Cancelled BUN/Creatinine Ratio Cancelled Glucose Cancelled Lactic Acid Calcium Cancelled Troponin I High Sens Cancelled Digoxin 0.25 L 05/11/22 05/11/22 12:10 12:14 WBC RBC Hgb Hct MCV MCH MCHC RDW Std Deviation RDW Coeff of Surinder Plt Count MPV Immature Gran % (Auto) Neut % (Auto) Lymph % (Auto) [place] % (Auto) Eos % (Auto) Baso % (Auto) Absolute Neuts (auto) Absolute Lymphs (auto) Nucleated RBC % Differential Comment Sodium 134 L Potassium 3.6 Chloride 101 Carbon Dioxide 27.0 Anion Gap 6 BUN 13 Creatinine 0.60 Estim Creat Clear Calc 40.34 Est GFR (MDRD) Af Amer 126 Est GFR (MDRD) Non-Af 104 BUN/Creatinine Ratio 21.6 H Glucose 118 H Lactic Acid 0.8 Calcium 8.0 L Troponin I High Sens 18 Digoxin Radiography Diagnostic Testing: Clinical Impression(s) from Imaging Studies Chest X-Ray 05/11/22 11:07 IMPRESSION: Masslike infiltration in the right upper lobe. This measures 7.3 cm x 4.8 cm. Increased linear markings at the left upper lobe. Correlation with CT scan is recommended for further evaluation. Electronically Signed: Chad Oakes MD at 12:47 EST , Chest CT 05/11/22 12:53 IMPRESSION: Dense irregular calcification in the right upper lobe as well as in the right lower lobe and lingular segment of the left upper lobe. Scarring with emphysematous changes and bullous formation and bronchiectasis as described. Electronically Signed: Chad Oakes MD at 14:22 EST , 1 view chest ray obtained interpreted by myself as right upper lobe con solidation/infiltrate. Radiology felt there was a masslike infiltration right upper lobe measuring 7.3 x 4.8 cm and increased markings in the left upper lobe and recommended obtaining CT scan of the chest. EKG Initial EKG: Attestation: I personally reviewed and interpreted this EKG as follows: Comments: Sinus rhythm with a rate of 108 bpm with occasional PVCs and nonspecific ST changes Discharge Plan Triage Chief Complaint: Cold Sx ED Provider: Surinder Ahuja Dx/Rx/DC Orders Clinical Impression: Pneumonia, Sepsis, Anemia, Acute hypotension, History of lung cancer Prescriptions: No Action Trelegy Ellipta 100-62.5-25 mcg blister with device 1 ea INHALATION DAILY Label Comments: Inhale 1 Puff as instructed once daily. atorvastatin 10 mg tablet 10 tab QHS sodium chloride 1 gram tablet 1,000 mg PO TID Qty: 90 0RF loratadine [Claritin] 10 mg Tablet 10 mg PO DAILY potassium chloride 20 mEq Tablet Extended Release 20 meq PO BID sucralfate 100 mg/mL suspension 10 ml PO 4X/DAY PRN (Reason: GERD) Label Comments: TAKE 10 ML BY MOUTH FOUR TIMES DAILY alendronate 70 mg tablet 70 mg PO SOLIS magnesium oxide 400 mg (241.3 mg magnesium) tablet 400 mg PO DAILY Label Comments: Take 1 tablet by mouth once daily. pantoprazole 40 mg tablet,delayed release (DR/EC) 40 mg PO DAILY PRN (Reason: GERD) Label Comments: Take 1 tablet by mouth once daily. albuterol sulfate 90 mcg/actuation HFA aerosol inhaler 2 inh INHALATION Q4H PRN (Reason: SOB) Label Comments: INHALE 2 PUFFS as instructed EVERY 4 HOURS NEEDED for wheezing/shortness OF breath. acetaminophen [Tylenol] 325 mg Tablet 650 mg PO Q6H PRN PRN (Reason: Pain Score 1-10/Temp > 100.7 F) Qty: 0 0RF digoxin 250 mcg (0.25 mg) Tablet 250 mcg PO DAILY Qty: 0 0RF furosemide 20 mg Tablet 20 mg PO DAILY Qty: 0 0RF Mucus Relief ER 1,200 mg Tablet Extended Release 12hr 1,200 mg PO BID Qty: 0 0RF ipratropium-albuterol 0.5 mg-3 mg(2.5 mg base)/3 mL Solution For Nebulization 3 ml inhalation Q6H.RT Qty: 90 0RF sennosides-docusate sodium [Stool Softener-Stimulant Laxat] 8.6-50 mg Tablet 2 tab PO BID PRN PRN (Reason: Constipation) Qty: 0 0RF lisinopril 2.5 mg Tablet 2.5 mg PO DAILY Qty: 0 0RF metoprolol tartrate 25 mg Tablet 25 mg PO BID Qty: 0 0RF aspirin 81 mg Tablet,Delayed Release (Dr/Ec) 81 mg PO BREAKFAST Qty: 0 0RF oxycodone-acetaminophen [Percocet] 10-325 mg Tablet 1 tab PO Q6H PRN (Reason: Pain) 1 Days Qty: 4 0RF morphine [MS Contin] 15 mg Tablet Extended Release 15 mg PO BID 1 Days Qty: 2 0RF Primary Care Provider: Crissy Lema NP Referrals: Crissy Lema NP, [employer] UNDER[employer]ITER-C [Primary Care Provider] - Disposition Disposition: Acute Care Hospital [facility]
[2022-05-11] MEDS: Ipratropium/Albuterol Sulfate 3 ML AMPUL.NEB INHALATION ×2 (11:16→21:35)
[2022-05-11] MEDS: 0.9% Normal Saline 1,000 ML 150 ML IV (11:31)
[2022-05-11] MEDS: Acetaminophen 500 MG Tablet 1000 MG PO (11:31)
--- NOTE | 2022-05-11 12:08 | NURSING ---
NEED A NEW GREEN TOP, IT HEMOLIZED PER [facility]
[2022-05-11 12:37] LABS: Anion Gap 6 (5-15); BUN 13 mg/dL (7-18); BUN/Creat Ratio 21.6 RATIO (10-20); Chloride 101 mmol/L (98-107); EST Glomerular Filtration Rate 104 mL/min (>60); Est Glom Filt Rate - Afr Amer 126 mL/min (>60); Estimated Creatinine Clearance 40.34 ml/min; Glucose 118 mg/dL (74-106); Potassium 3.6 mmol/L (3.5-5.1); Sodium Level 134 mmol/L (136-145); Troponin-I HS 18 pg/mL (3.0-54.0)
[2022-05-11 12:38] LABS: Absolute Lymphocyte Count 0.21 X10^3/uL (0.83-4.51); Absolute Neutrophil Count 8.6 X10^3/uL (2.0-7.7); Basophil# 0.01 X10^3/uL; Basophil% 0.1 % (0-1); Hematocrit 22.6 % (37-47); Hemoglobin 6.5 g/dL (12.0-15.0); Lymphocyte # 0.21 X10^3/ul (0.83-4.51); Lymphocyte % 2.2 % (19-41); Mean Corp Hgb Conc 28.8 g/dL (32-36); Mean Corpuscular Volume 104.1 fL (81-99); Mean Platelet Vol. 11.5 fl (6.2-12.0); Monocyte# 0.51 X10^3/uL; Monocyte% 5.4 % (0-10); NRBC Flagged by Analyzer 0 % (0-5); Neutrophil # 8.59 X10^3/uL (2.7-7.7); Neutrophil % 90.9 % (47-70); POSITIVE DIFFERENTIAL YES; Platelet Count 165 K/mm3 (150-450); RBC Distribution Width CV 16.4 % (11.6-14.6); RBC Distribution Width SD 62.7 fl (35.1-43.9); Red Blood Count 2.17 M/mm3 (4.2-5.4); White Blood Count 9.5 K/mm3 (4.4-11.0)
[2022-05-11 12:42] LABS: Lactic Acid 0.8 mmol/L (0.4-1.9)
[2022-05-11 12:44] LABS: Digoxin Level 0.25 ng/mL (0.80-2.00)
--- NOTE | 2022-05-11 12:53 | CT_ITS ---
STUDY: CT CHEST WITH CONTRAST REASON FOR EXAM: Female, 72 years old. Right upper lobe mass, infiltrate RADIATION DOSAGE (If Supplied By Facility): CTDIvol = ( 10.99 ) mGy, DLP = ( 205.33 ) mGycm TECHNIQUE: Transaxial imaging was performed following intravenous administration of IV 75mL Isovue-370. Multiplanar coronal and sagittal images were reformatted. Individualized dose optimization techniques were used for this CT. COMPARISON: Comparison is made with prior chest radiograph done earlier today. FINDINGS: CHEST There is a 9.2 side by 6.8 cm x 5 cm dense heterogeneous consolidation in the right upper lobe laterally and abutting the right major fissure. There is evidence of scarring and bronchiectasis with emphysematous changes in the right upper lobe. Patchy irregular infiltrates are also seen along the anterior aspect of the left upper lobe with areas of emphysematous changes and bullous formation. There is also evidence of a scarring in the posterior segment of the right lower lobe. There is no demonstrated pleural abnormality. There are calcifications of the coronary arteries. Normal mediastinum. Normal hilar regions. Normal unenhanced pulmonary arteries. Normal aorta arch and descending thoracic aorta. There is demineralization of the thoracic spine. Status post multilevel vertebroplasty. Findings suggestive of a retroperitoneal lymphadenopathy on the limited examination of the upper abdomen CT/Chest WITH Contrast IMPRESSION: Dense irregular calcification in the right upper lobe as well as in the right lower lobe and lingular segment of the left upper lobe. Scarring with emphysematous changes and bullous formation and bronchiectasis as described. Electronically Signed: Chad Oakes MD at 14:22 EST ,
[2022-05-11 13:01] LABS: Differential Indicated SCAN CRITERIA MET
[2022-05-11] MEDS: 0.9% Normal Saline 1,000 ML 500 ML IV (13:03)
[2022-05-11] MEDS: Ondansetron 4 MG/2 ML Vial IV (13:05)
[2022-05-11] MEDS: Morphine 4 MG/ML Syringe IV (13:07)
[2022-05-11] MEDS: levoFLOXacin IV 750 MG/150 ML BAG 100 MG IV (13:08)
[2022-05-11 13:10] LABS: Differential Comment SCANNED
[2022-05-11] MEDS: 0.9% Normal Saline 1,000 ML 999 ML IV (13:35)
--- NOTE | 2022-05-11 15:13 | HP.PCM.HOS_ITS ---
[facility] - General General Date of Service: 05/11/22 Chief Complaint: shortness of breath. fever. [facility] Narrative SAPPHIRE LOOMIS, is a 72 F who presents with progressive shortness of breath. Over the past week, patient has just been more short of breath and over the past c ouple days, she has been having fever. Today, had peak temperature of 103. Presented to the emergency room and was noted to have a hemoglobin of 6.5. Chest x-ray and subsequent CAT scan showed a right middle lobe infiltrate. Patient received bronchodilators as well as levofloxacin in the emergency room. Patient has been coughing and has been productive of phlegm. Does have a sore throat and rhinitis. Also patient is on 3 L of oxygen chronically. She has not had to go up on her oxygen recently. [facility] Medical History AAA (abdominal aortic aneurysm) Anemia requiring transfusions CAD (coronary artery disease) CAD (coronary artery disease) COPD exacerbation Heart attack Heart failure with reduced ejection fraction History of GI bleed Kidney stone Lung cancer Osteoporosis Paroxysmal atrial fibrillation SIADH (syndrome of inappropriate ADH production) Small cell lung cancer Tobacco abuse Home Medications atorvastatin 10 mg tablet 10 tab QHS cholesterol 11/13/21 [History Last Taken 1 Month Ago ~12/04/21] fluticasone fur. 100 mcg-umeclid 62.5 mcg-vilant 25 mcg inhalat.powder (Trelegy Ellipta) 1 ea inhalation DAILY breathing treatment 11/13/21 [History Last Taken 01/03/22] sodium chloride 1 gram tablet 1,000 mg PO TID #90 tabs 11/15/21 [Rx Last Taken 01/03/22] albuterol sulfate 90 mcg/actuation aerosol inhaler 2 inh inhalation Q4H PRN SOB 01/04/22 [History Last Taken 01/04/22] alendronate 70 mg tablet 70 mg PO SOLIS BONES 01/04/22 [History Last Taken 01/02/22] loratadine 10 mg tablet (Claritin) 10 mg PO DAILY 01/04/22 [History Last Taken 01/04/22] magnesium oxide 400 mg (241.3 mg magnesium) tablet 400 mg PO DAILY SUPPLEMENT 01/04/22 [History Last Taken 01/03/22] pantoprazole 40 mg tablet,delayed release 40 mg PO DAILY PRN GERD 01/04/22 [History Last Taken Unknown] potassium chloride 20 mEq tablet,extended release 20 meq PO BID 01/04/22 [History Last Taken 01/03/22] sucralfate 100 mg/mL oral suspension 10 ml PO 4X/DAY PRN GERD 01/04/22 [History Last Taken Unknown] acetaminophen 325 mg tablet (Tylenol) 650 mg PO Q6H PRN PRN Pain Score 1-10/Temp > 100.7 F #0 tabs 01/13/22 [Rx Last Taken Unknown] aspirin 81 mg tablet,delayed release 81 mg PO BREAKFAST #0 tabs 01/13/22 [Rx Last Taken Unknown] digoxin 250 mcg (0.25 mg) tablet 250 mcg PO DAILY #0 tabs 01/13/22 [Rx Last Taken Unknown] furosemide 20 mg tablet 20 mg PO DAILY #0 tabs 01/13/22 [Rx Last Taken Unknown] guaifenesin 1,200 mg tablet, extended release 12 hr (Mucus Relief ER) 1,200 mg PO BID #0 tabs 01/13/22 [Rx Last Taken Unknown] ipratropium 0.5 mg-albuterol 3 mg (2.5 mg base)/3 mL nebulization soln 3 ml inhalation Q6H.RT #90 mL 01/13/22 [Rx Last Taken Unknown] lisinopril 2.5 mg tablet 2.5 mg PO DAILY #0 tabs 01/13/22 [Rx Last Taken Unknown] metoprolol tartrate 25 mg tablet 25 mg PO BID #0 tabs 01/13/22 [Rx Last Taken Unknown] morphine 15 mg tablet,extended release (MS Contin) 15 mg PO BID PAIN 1 day #2 tabs 01/13/22 [Rx Last Taken Unknown] oxycodone-acetaminophen 10 mg-325 mg tablet (Percocet) 1 tab PO Q6H PRN Pain 1 day #4 tabs 01/13/22 [Rx Last Taken Unknown] sennosides 8.6 mg-docusate sodium 50 mg tablet (Stool Softener-Stimulant Laxati ve) 2 tab PO BID PRN PRN Constipation #0 tabs 01/13/22 [Rx Last Taken Unknown] Allergy/AdvReac Type Severity Reaction Status Date / Time latex Allergy Rash Verified 05/11/22 10:21 Penicillins Allergy Anaphylaxis Verified 05/11/22 10:21 succinylcholine Allergy Anaphylaxis Verified 05/11/22 10:21 aspirin [ASA] AdvReac Upset Verified 05/11/22 10:21 Stomach Family History Other CAD (coronary artery disease) Heart disease Hypertension Surgical History S/P AAA repair S/P PTCA (percutaneous transluminal coronary angioplasty) Social History Smoking Status: Former smoker alcohol intake: never substance use type: does not use ROS ROS Narrative Patient denies any melena nor hematochezia. No hematemesis or hemoptysis. No easy bruising. Does have chronic swelling of the left lower extremity with her recent femoropopliteal bypass. This edema has improved over the past few weeks. All review of systems were negative except as mentioned above in the history of present illness and the other review of systems. Vital Signs Vital Signs Vital Signs: 05/11/22 10:14 05/11/22 10:21 05/11/22 10:23 Temperature 38.8 C H 38.8 C H Temperature Source Oral Oral Pulse Rate 112 H 112 H Respiratory Rate 24 H 20 H Respiratory Effort Short of Breath Respiratory Depth Shallow Respiratory Pattern Tachypnea Blood Pressure 115/62 103/60 Blood Pressure Mean 79 74 Pulse Ox 3 96 Oxygen Delivery Method Nasal Cannula Nasal Cannula Nasal Cannula Oxygen Flow Rate (L/min) 3 3 05/11/22 11:24 05/11/22 11:21 05/11/22 12:24 Temperature 38.6 C H 37.3 C Temperature Source Temporal Oral Pulse Rate 120 H 110 H 104 H Respiratory Rate 24 H 18 20 H Respiratory Effort Respiratory Depth Respiratory Pattern Hyperpnea Blood Pressure 110/78 97/53 L Blood Pressure Mean 88 67 Pulse Ox 99 97 Oxygen Delivery Method Room Air Nasal Cannula Oxygen Flow Rate (L/min) 3 05/11/22 13:10 05/11/22 14:24 05/11/22 14:24 Temperature 36.6 C 37.0 C 37.0 C Temperature Source Temporal Oral Oral Pulse Rate 89 80 80 Respiratory Rate 16 18 18 Respiratory Effort Respiratory Depth Respiratory Pattern Blood Pressure 87/50 L 88/47 L 88/47 L Blood Pressure Mean 62 60 60 Pulse Ox 96 96 96 Oxygen Delivery Method Nasal Cannula Nasal Cannula Oxygen Flow Rate (L/min) 3 3 05/11/22 14:39 05/11/22 14:53 05/11/22 14:57 Temperature 37.0 C 37.0 C Temperature Source Oral Oral Pulse Rate 84 93 Respiratory Rate 15 18 Respiratory Effort Respiratory Depth Respiratory Pattern Blood Pressure 82/48 L 94/48 L 95/78 Blood Pressure Mean 59 63 83 Pulse Ox 95 97 Oxygen Delivery Method Nasal Cannula Nasal Cannula Oxygen Flow Rate (L/min) 3 3 Weight Weight: 51 kg Body Mass Index (BMI) 24.3 Physical Exam Const alert and no apparent distress Constitutional Narrative: Hard of hearing. No respiratory distress. No conversational dyspnea. Cachectic. HEENT normocephalic, head/scalp atraumatic and hearing grossly normal bilaterally Neck no lymphadenopathy Neck Narrative: No thyromegaly Resp normal respiratory effort Resp Narrative: Diminished breath sounds through the right midlung field. Cardio regular rate, regular rhythm, S1 normal heart sound and S2 normal heart sound GI normal to inspection, nondistended, normoactive bowel sounds, soft to palpation, non-tender and non-distended Extremity Extremity Narrative: Nonpitting edema in the left lower extremity. Skin Skin Narrative: No rashes or ecchymosis Neuro oriented x3 and moves all extremities Sensorium / Orientation: awake and alert Psych affect normal Results Lab / Micro Data Attestation: I reviewed the patient's lab results. Lab results narrative: CT chest reviewed and shows a diffuse emphysematous changes. Very prominent right middle lobe infiltrate. Result Diagrams: 05/11/22 11:50 05/11/22 12:14 Labs: Laboratory Results - last 24 hr 05/11/22 11:50: WBC 9.5, RBC 2.17 L, Hgb 6.5 L, Hct 22.6 L, MCV 104.1 H, MCH 30.0, MCHC 28.8 L, RDW Std Deviation 62.7 H, RDW Coeff of Surinder 16.4 H, Plt Count 165, MPV 11.5, Immature Gran % (Auto) 1.400 H, Neut % (Auto) 90.9 H, Lymph % (Auto) 2.2 L, [place] % (Auto) 5.4, Eos % (Auto) 0.0, Baso % (Auto) 0.1, Absolute Neuts (auto) 8.6 H, Absolute Lymphs (auto) 0.21 L, Nucleated RBC % 0, Differential Comment SCANNED 05/11/22 11:50: Sodium Cancelled, Potassium Cancelled, Chloride Cancelled, Carbon Dioxide Cancelled, Anion Gap Cancelled, BUN Cancelled, Creatinine Cancelled, Estim Creat Clear Calc Cancelled, Est GFR (MDRD) Af Amer Cancelled, Est GFR (MDRD) Non-Af Cancelled, BUN/Creatinine Ratio Cancelled, Glucose Cancelled, Calcium Cancelled, Troponin I High Sens Cancelled 05/11/22 11:50: Digoxin 0.25 L 05/11/22 12:10: Lactic Acid 0.8 05/11/22 12:14: Sodium 134 L, Potassium 3.6, Chloride 101, Carbon Dioxide 27.0, Anion Gap 6, BUN 13, Creatinine 0.60, Estim Creat Clear Calc 40.34, Est GFR (MDRD) Af Amer 126, Est GFR (MDRD) Non-Af 104, BUN/Creatinine Ratio 21.6 H, Glucose 118 H, Calcium 8.0 L, Troponin I High Sens 18 Micro: Microbiology 05/11/22 11:21 Nasal Secretion SARS-CoV-2 & FLU Antigen (Rapid) - Final Radiology Impression Chest X-Ray 05/11/22 11:07 IMPRESSION: Masslike infiltration in the right upper lobe. This measures 7.3 cm x 4.8 cm. Increased linear markings at the left upper lobe. Correlation with CT scan is recommended for further evaluation. Electronically Signed: Chad Oakes MD at 12:47 EST , Chest CT 05/11/22 12:53 IMPRESSION: Dense irregular calcification in the right upper lobe as well as in the right lower lobe and lingular segment of the left upper lobe. Scarring with emphysematous changes and bullous formation and bronchiectasis as described. Electronically Signed: Chad Oakes MD at 14:22 EST , Assessment & Plan Assessment/Plan (1) Pneumonia: QUALIFIERS: Pneumonia type: due to Pneumococcus Laterality: right Lung location: middle lobe of lung Qualified Code(s): J13 - Pneumonia due to Streptococcus pneumoniae PLAN: Right middle lobe pneumonia Continue levofloxacin Pulmonary toilet. May consider vest therapy if patient fails to progress. Follow-up urinary antigens for Streptococcus and Legionella Check sputum culture (2) Acute hypotension: PLAN: This began after the patient received IV morphine in the emergency department. It has improved. Monitor for now. No treatment at this point (3) Anemia: QUALIFIERS: Anemia type: unspecified type Qualified Code(s): D64.9 - Anemia, unspecified PLAN: Suspect acute but cannot verify. Last hemoglobin was in the 8 range back in December. Transfuse 1 unit Appears to be macrocytic Will check iron studies, ferritin, B12 and TSH. Will not check folate as patient did receive IV contrast with a CAT scan Check Hemoccult Hold aspirin for the time being (4) Severe protein-calorie malnutrition: PLAN: Complicates care and recovery Consult nutrition Start supplements PLAN: Plan Chronic conditions * Small cell lung cancer: Patient told that it was in remission. Follow-up with oncology as outpatient. Patient not actively undergoing chemo treatment * SIADH: Stable. Continue with salt tablets * COPD: Does not appear to be in exacerbation at this time. Therefore no steroids at this point * History of HFrEF: Patient was noted to have an EF of 25 to 30% back in December and then in January it was noted to be 60%. Continue with furosemide and lisinopril * PAD: Patient has undergone an aortofemoral bypass VTE prophylaxis: SCDs CODE STATUS: Addressed with the patient. Patient wishes to be full code. Disposition: To be determined. Anticipate hospitalization ranging between 48 to 96 hours. Patient does require IV antibiotics and additional treatments given the severe pneumonia that she has on top of her multiple, severe medical comorbidities. Charges/Coding Visit Charges Inpatient E&M: 78494 In Hosp L3
[2022-05-11 15:44] LABS: Ferritin 313 ng/mL (8-252); Iron 11 ug/dL (50-170); Iron Binding Capacity,Total 139 ug/dL (250-450); PERCENT IRON SATURATION 7.9 % (15.0-55.0); Thyroid Stim Hormone (TSH) 0.48 uIU/mL (0.358-3.74)
[2022-05-11] MEDS: oxyCODONE 5 MG Tablet 10 MG PO (16:10)
--- NOTE | 2022-05-11 16:15 | NURSING ---
MS ED 4
[2022-05-11] MEDS: Adenosine 6 MG/2 ML Syringe IV (18:51)
[2022-05-11] MEDS: Adenosine 6 MG/2 ML Syringe 12 MG IV ×2 (18:53→19:05)
[2022-05-11] MEDS: 0.9% Saline Lock 10 ML Syringe IV ×2 (19:00→19:05)
--- NOTE | 2022-05-11 19:00 | EKG12_ITS ---
Test Reason : Blood Pressure : / mmHG Vent. Rate : 155 BPM Atrial Rate : 000 BPM P-R Int : 000 ms QRS Dur : 098 ms QT Int : 280 ms P-R-T Axes : 000 -70 084 degrees QTc Int : 449 ms Supraventricular tachycardia : Consider Atrial Tachycardia/Flutter with 2:1 Block Left axis deviation Marked ST abnormality, possible anterior subendocardial injury Abnormal ECG Confirmed by PAULINA HASKINS, AARTI ([id number]), restaurant expeditor JESSIE HORNE ([id number]) on 05/13/2022 7:41:56 AM Referred By: Confirmed By:AARTI GALLARDO MD
[2022-05-11 19:33] LABS: Vitamin B12 790 pg/mL (211-911)
[2022-05-11] MEDS: Etomidate 20 MG/10 ML Vial IV (19:33)
--- NOTE | 2022-05-11 19:35 | NURSING ---
gave VO to stop and DC PRBC currently infusing; no mention of transfusion reaction, only hold all transfusions until re-eval tomorrow.
--- NOTE | 2022-05-11 19:39 | NURSING ---
Patient came up to PCU as med surg overflow. Did not receive report from ED. Upon arrival patient had blood going, and was on 4L NC, RN stated she was getting SOB in the ED but would recover within 10-15 on 5-6 L NC. After moving patient over to PCU bed and weighing patient, patient was complaining of SOB. I increased her oxygen from 4L to 6 L, then eventaully 8 L. patient was still c/o severe SOB stating she can't breath. I increased her oxygen to 10 L. At this point was trying to get vitals when HR was noted above 200. Called charge nurse. Charge nurse came into room, assessed patient, noted that patient was in SVT and called Dr. Wilson. Crash cart was called into room adenosine pushed, NS wide open. Dr. Wilson, after three attempts with the adensine, stated patient needed to go to ICU.
--- NOTE | 2022-05-11 19:54 | RAD_ITS ---
STUDY: X-RAY CHEST REASON FOR EXAM: Female, 72 years old. ETT placement -- portable TECHNIQUE: XR Chest 1 View COMPARISON: Study done earlier today. FINDINGS: There is atherosclerotic calcification of the aortic arch with tortuosity. There are diffuse degenerative changes of the visualized thoracic spine. There is degenerative osteoarthritis of the bilateral shoulders. Right upper lobe and left upper lobe masslike infiltrate. ET tube and NG tube in place. Left upper lobe infiltrate. Kyphoplasty changes. ET tube is 20mm into the right bronchus. This needs to be repositioned. Normal size heart. Normal mediastinum and valeriy. Normal visualized pulmonary arteries. There is no demonstrated abnormality of the visualized soft tissue structures of the upper abdomen. RAD/Chest 1 View (Portable) IMPRESSION: Right upper lobe and left upper lobe masslike infiltrate. ET tube is 20mm into the right bronchus. This needs to be repositioned. Electronically Signed: Herson Butcher MD at 20:43 EST ,
--- NOTE | 2022-05-11 20:07 | PCM.OP.PRO ---
Assessment & Plan Assessment/Plan (1) Pneumonia: QUALIFIERS: Pneumonia type: due to Pneumococcus Laterality: right Lung location: middle lobe of lung Qualified Code(s): J13 - Pneumonia due to Streptococcus pneumoniae (2) Acute respiratory failure with hypoxia: Procedure Report Date of Procedure: 05/11/22 Endotracheal intubation Indication: Pneumonia, respiratory distress Procedure: Verified again with patient that she wished to be intubated in the event of a respiratory distress. Nursing present at bedside. Also verify that patient wished to have CPR which she again verified. Patient was on BiPAP but not responding well and still in respiratory distress. Decision was then made to proceed with endotracheal intubation. Patient was transferred from the progressive care unit to the ICU and patient was preoxygenated with BiPAP. Patient received 20 mg of etomidate for sedation. Using the glide scope, vocal cords were visualized and a 7.2 ET tube was advanced. It was initially placed at 25 cm. Bilateral breath sounds were heard but follow-up x-ray showed right mainstem intubation. The tube would be withdrawn 3 cm. Procedures Hospitalists Procedures: 84226 Insert Emergency Airway
--- NOTE | 2022-05-11 20:10 | RAD_ITS ---
STUDY: X-RAY CHEST REASON FOR EXAM: Female, 72 years old. ETT placement TECHNIQUE: XR Chest 1 View COMPARISON: Study done earlier today. FINDINGS: There is atherosclerotic calcification of the aortic arch with tortuosity. There are diffuse degenerative changes of the visualized thoracic spine. There is degenerative osteoarthritis of the bilateral shoulders. Right upper lobe and left upper lobe masslike infiltrate. ET tube and NG tube in place. Left upper lobe infiltrate. Kyphoplasty changes. ET tube is 13mm into the right bronchus. This needs to be repositioned. Normal size heart. Normal mediastinum and valeriy. Normal visualized pulmonary arteries. There is no demonstrated abnormality of the visualized soft tissue structures of the upper abdomen. RAD/Chest 1 View (Portable) IMPRESSION: Right upper lobe and left upper lobe masslike infiltrate. ET tube is 13mm into the right bronchus. This needs to be repositioned. Electronically Signed: Herson Butcher MD at 20:41 EST ,
--- NOTE | 2022-05-11 20:11 | RAD_ITS ---
STUDY: X-RAY CHEST REASON FOR EXAM: Female, 72 years old. ETT placement TECHNIQUE: XR Chest 1 View COMPARISON: Study done earlier today. FINDINGS: There is atherosclerotic calcification of the aortic arch with tortuosity. There are diffuse degenerative changes of the visualized thoracic spine. There is degenerative osteoarthritis of the bilateral shoulders. Right upper lobe and left upper lobe masslike infiltrate. ET tube and NG tube in place. Left upper lobe infiltrate. Kyphoplasty changes. Normal size heart. Normal mediastinum and valeriy. Normal visualized pulmonary arteries. There is no demonstrated abnormality of the visualized soft tissue structures of the upper abdomen. RAD/Chest 1 View (Portable) IMPRESSION: Right upper lobe and left upper lobe masslike infiltrate. Electronically Signed: Herson Butcher MD at 20:32 EST ,
--- NOTE | 2022-05-11 20:11 | RAD_ITS ---
EXAM: XR ABDOMEN, 1 VIEW CLINICAL INDICATION: OG placement TECHNIQUE: Frontal supine view of the abdomen/pelvis. This report was created using [employer] report generation technology. COMPARISON: None. FINDINGS: LOWER THORAX: See below. GASTROINTESTINAL TRACT: Unremarkable. Non-obstructive. No bowel or stomach distention. ORGANS: Unremarkable as visualized. No organomegaly. No abnormal calcifications. BONES/JOINTS: Multilevel kyphoplasty changes. SOFT TISSUES: No acute pathology. VASCULATURE: Abdominal stent graft in place. TUBES, LINES AND DEVICES: There is a feeding tube/ nasogastric tube noted. The tip is in the region of the stomach. ET tube is 18 mm into the right bronchus. OTHER FINDINGS: Right upper lobe mass or infiltrate. RAD/Abdomen Single View (Portable) IMPRESSION: 1. Right upper lobe mass or infiltrate. 2. There is a feeding tube/ nasogastric tube noted. The tip is in the region of the stomach. 3. ET tube is 18 mm into the right bronchus. Electronically Signed: Herson Butcher MD at 20:31 EST ,
--- NOTE | 2022-05-11 20:16 | ECHOD_ITS ---
Reason For Study: SVT Procedure This was a 2D Doppler, Color Flow transthoracic echocardiogram. The exam was of adequate technical quality. Exam performed portable in ICU/CCU. PT is on the ventilator. Left Ventricle Normal LV size. Apical false tendon noted. Moderate global left ventricular systolic dysfunction. The estimated ejection fraction is 35 %. Diastolic function is indeterminate. Right Ventricle Mildly dilated right ventricle. Mild global right ventricular systolic dysfunction. Atria The left atrium is mildly enlarged. Normal right atrium. No doppler evidence for ASD. Mitral Valve There is mild mitral annular calcification. Mild diffuse mitral valve thickening. Mild (1+) mitral valve insufficiency. Tricuspid Valve Normal tricuspid valve. Mild tricuspid valve insufficiency. Right ventricular systolic pressure estimated to be 35 mmHg. Aortic Valve Trisinus/trileaflet aortic valve. Mild focal aortic valve calcification. Pulmonic Valve The pulmonic valve is not well visualized. Great Vessels Normal sized aortic root. Pericardium/Pleural Trivial pericardial effusion. There are no echocardiographic indications of cardiac tamponade. MMode/2D Measurements & Calculations LVIDd: 5.0 cm IVSd: 0.84 cm Ao root diam: 3.3 cm LVIDs: 3.5 cm LVPWd: 1.1 cm RVDd: 3.3 cm FS: 29.0 % LAV(MOD-bp): 57.2 ml LA A4 area: 21.2 cm2 LA dimension(2D): 4.3 cm LAV(MOD-bp) Indexed: 49.7 ml/m2 LAV(MOD-sp2): 43.8 ml LAV(MOD-sp4): 70.6 ml Doppler Measurements & Calculations MV E max nico: 44.4 cm/sec Lat Peak E' Nico: 5.8 cm/sec Med Peak E' Nico: 4.0 cm/sec MV A max nico: 106.4 cm/sec E/E' lat: 7.6 E/E' med: 11.0 MV E/A: 0.42 Ao V2 max: 142.6 cm/sec LV V1 max: 95.2 cm/sec MR max nico: 445.9 cm/sec Ao max P.1 mmHg LV V1 max P.6 mmHg MR max P.6 mmHg Ao V2 mean: 102.2 cm/sec LV V1 mean P.0 mmHg MR mean nico: 305.7 cm/sec Ao mean P.7 mmHg LV V1 mean: 66.9 cm/sec MR mean P.7 mmHg Ao V2 VTI: 25.6 cm LV V1 VTI: 17.0 cm MR VTI: 127.4 cm AV (velocity ratio): 0.67 PA V2 max: 87.8 cm/sec TR max nico: 259.8 cm/sec PI dec slope: 213.9 cm/sec2 TR max P.1 mmHg ECHO/Echo Complete Interpretation Summary Moderate global left ventricular systolic dysfunction. The estimated ejection fraction is 35 %. Apical false tendon noted. Mildly dilated right ventricle. Mild global right ventricular systolic dysfunction. The left atrium is mildly enlarged. There is mild mitral annular calcification. Mild diffuse mitral valve thickening. Mild (1+) mitral valve insufficiency. Mild tricuspid valve insufficiency. Mild focal aortic valve calcification. Trivial pericardial effusion. There are no echocardiographic indications of cardiac tamponade. Right ventricular systolic pressure estimated to be 35 mmHg. Diastolic function is indeterminate. Ordering Physician: Jake Figueroa Referring Physician: Crissy Lema Performed By: Jocelyn Humphrey RDCS, RVT
[2022-05-11] MEDS: Propofol 10MG/Ml 1,000 MG/100 ML Bottle 2.6 MG CONT INF (20:30)
[2022-05-11 22:06] LABS: Allen Test Positive; Base Excess -2 mmol/L (-2 to +2); Bicarbonate 22.6 mmol/L (22-26); Blood Gas Specimen Type ART; FI02 80; Mode AC; O2 Delivery Device Adult Vent; PEEP 5; PO2 244 mmHG (75-100); RR 12; SITE L Radial; SO2 100 % (95-99); Total Carbon Dioxide 24 mmol/L; Vt 400; pH 7.39 (7.35-7.45)
[2022-05-11 22:10] LABS: Absolute Neutrophil Count 9.7 X10^3/uL (2.0-7.7); Hematocrit 22.1 % (37-47); Hemoglobin 6.7 g/dL (12.0-15.0); Mean Corp Hgb Conc 30.3 g/dL (32-36); Mean Corpuscular Hgb 29.6 pg (27.0-32.0); Mean Corpuscular Volume 97.8 fL (81-99); Mean Platelet Vol. 10.8 fl (6.2-12.0); Monocyte# 0.52 X10^3/uL; NRBC Flagged by Analyzer 0 % (0-5); Neutrophil # 9.67 X10^3/uL (2.7-7.7); Neutrophil % 92.8 % (47-70); POSITIVE DIFFERENTIAL YES; POSITIVE MORPHOLOGY YES; Platelet Count 194 K/mm3 (150-450); RBC Distribution Width CV 16.1 % (11.6-14.6); RBC Distribution Width SD 58.4 fl (35.1-43.9); Red Blood Count 2.26 M/mm3 (4.2-5.4); White Blood Count 10.4 K/mm3 (4.4-11.0)
[2022-05-11 22:32] LABS: Differential Indicated SCAN CRITERIA MET
[2022-05-11 22:48] LABS: Differential Comment SCANNED
[2022-05-11] MEDS: Chlorhexidine 15 ML PO (23:00)
[2022-05-12] VITALS (40 sets, daily range): BP systolic 80–111; BP diastolic 52–76; PULSE 84–134; RESP 12–24; TEMP 36.6–39.4; O2SAT 91–100
[2022-05-12] MEDS: Acetaminophen 650 MG/20 ML UDC GT ×2 (00:10→14:03)
[2022-05-12] MEDS: Metoprolol Tartrate 5 MG/5 ML Vial IV ×2 (00:11→05:38)
[2022-05-12] MEDS: CHLORHEXIDINE GLUC 2% CLOTH 1 EACH TOWELETTE TOPICAL (00:11)
[2022-05-12] MEDS: MethylPREDNISolone 125 MG/2 ML Vial IV (00:15)
[2022-05-12] MEDS: 0.9% Saline Lock 10 ML Syringe IV ×3 (00:15→12:28)
[2022-05-12] MEDS: Potassium Chloride Oral Soln 20 MEQ/15 ML UDC PO (00:16)
[2022-05-12 00:45] LABS: CPK Total, Creatine Kinase 32 U/L (26-192); Triglycerides 71 mg/dL
[2022-05-12] MEDS: Ipratropium/Albuterol Sulfate 3 ML AMPUL.NEB INHALATION ×4 (02:00→18:59)
[2022-05-12] MEDS: guaiFENesin 10 ML UDC (200MG/10ML) GT ×6 (02:17→22:38)
--- NOTE | 2022-05-12 02:26 | CPS ---
Dr Figueroa took pt off bipap to intubte. Done so without complication.
[2022-05-12 04:05] LABS: Absolute Lymphocyte Count 0.09 X10^3/uL (0.83-4.51); Absolute Neutrophil Count 7.7 X10^3/uL (2.0-7.7); Basophil# 0.01 X10^3/uL; Basophil% 0.1 % (0-1); Hematocrit 23.7 % (37-47); Hemoglobin 7.3 g/dL (12.0-15.0); Lymphocyte # 0.09 X10^3/ul (0.83-4.51); Lymphocyte % 1.1 % (19-41); Mean Corp Hgb Conc 30.8 g/dL (32-36); Mean Corpuscular Hgb 30.2 pg (27.0-32.0); Mean Corpuscular Volume 97.9 fL (81-99); Mean Platelet Vol. 10.8 fl (6.2-12.0); Monocyte# 0.22 X10^3/uL; Monocyte% 2.7 % (0-10); NRBC Flagged by Analyzer 0 % (0-5); Neutrophil # 7.66 X10^3/uL (2.7-7.7); Neutrophil % 95.6 % (47-70); POSITIVE DIFFERENTIAL YES; POSITIVE MORPHOLOGY YES; Platelet Count 195 K/mm3 (150-450); RBC Distribution Width CV 16.3 % (11.6-14.6); Red Blood Count 2.42 M/mm3 (4.2-5.4)
[2022-05-12 04:15] LABS: International Normalized Ratio 1.8; Prothrombin Time (Protime)PT. 20.8 SECONDS (11.7-14.9)
[2022-05-12 04:32] LABS: ALB/GLOB Ratio 0.4 RATIO (0.9-2.4); AST(SGOT) 46 U/L (15-37); Alanine Aminotransfer ALT/SGPT 24 U/L (13-56); Albumin, Serum 1.8 g/dL (3.2-5.0); Alkaline Phosphatase 132 U/L (45-117); Anion Gap 9 (5-15); BUN 15 mg/dL (7-18); BUN/Creat Ratio 22.3 RATIO (10-20); Calcium,Total 7.8 mg/dL (8.5-10.1); Chloride 105 mmol/L (98-107); Creatinine, Serum 0.67 mg/dL (0.55-1.02); EST Glomerular Filtration Rate 91 mL/min (>60); Est Glom Filt Rate - Afr Amer 110 mL/min (>60); Estimated Creatinine Clearance 34.01 ml/min; Globulin 4.4 g/dL (2.2-4.2); Glucose 135 mg/dL (74-106); Potassium 4.4 mmol/L (3.5-5.1); Protein, Total 6.2 g/dL (6.4-8.2); Sodium Level 136 mmol/L (136-145)
[2022-05-12 04:37] LABS: Differential Indicated SCAN CRITERIA MET
[2022-05-12 04:39] LABS: Differential Comment SCANNED
[2022-05-12] MEDS: Sodium Chloride 1 GM Tablet PO ×3 (05:39→22:31)
--- NOTE | 2022-05-12 08:44 | CON.PCM.CA_ITS ---
Assessment & Plan Assessment/Plan (1) SVT (supraventricular tachycardia): PLAN: The patient was diagnosed with SVT . Based upon her ECG there is a question as to whether this may have been related to an atrial tachycardia/atrial flutter with a 2-1 AV conduction. This may have been brought out by her underlying acute pulmonary event superimposed upon her cardiovascular history. At the present time she appears to be remaining in a sinus rhythm. At the moment it would be reasonable to continue her medical management with rate control therapy and electrolyte supplementation as deemed appropriate and treating her underlying pulmonary condition. (2) Paroxysmal atrial fibrillation: PLAN: The patient has a history of PAF. At the present time she is noted to be in sinus rhythm. She will continue medical management as deemed appropriate with respect to rate control therapy. She does not appear to be an ideal candidate for long-term oral systemic anticoagulant therapy based upon her history of anemia and thrombocytopenia thought secondary to her underlying hematology/oncology related issues. (3) CAD (coronary artery disease): PLAN: The patient has a history of CAD. The details are unknown. At the moment she will continue medical management as best as possible. (4) S/P PTCA (percutaneous transluminal coronary angioplasty): PLAN: The patient is reported as having a history of previous PCI at an outside institution. Again the details are unknown. She will continue medical therapy. (5) Cardiomyopathy: PLAN: The patient has a history of a previous transient cardiomyopathy. It is unclear as to whether this was related to a tachycardiac related cardiomyopathy versus related to a noncardiovascular condition such as her underlying pulmonary condition/hypoxemia or related to any concerns of previous chemotherapy. It appeared that her overall LV systolic function improved. She can be reevaluated with an echocardiogram based upon her current cardiopulmonary condition to assist with further evaluation and care. (6) AAA (abdominal aortic aneurysm): PLAN: The patient has a history of a AAA. Apparently this is undergone repair in the past based upon her past medical history. (7) Pneumonia: QUALIFIERS: Pneumonia type: due to Pneumococcus Laterality: right Lung location: middle lobe of lung Qualified Code(s): J13 - Pneumonia due to Streptococcus pneumoniae PLAN: The patient is being treated for underlying pneumonia superimposed upon her history of lung carcinoma. She continues in the ICU with mechanical intubation/ventilation and medical management. (8) History of lung cancer: PLAN: The patient has a history of lung carcinoma. She will continue evaluation care per hematology and oncology. (9) Anemia: QUALIFIERS: Anemia type: unspecified type Qualified Code(s): D64.9 - Anemia, unspecified PLAN: The patient remains with anemia. She also has a previous history of thrombocytopenia. This does impact her ability with respect to medical therapy and additional studies-especially invasive-if needed. Addt'l Comments The patient's case has been discussed and reviewed with Dr. Figueroa of the [facility] staff. This note was generated using a voice recognition system and there may be incorrect words, spelling or punctuation that were not noted when reviewing the office note prior to saving. HPI Consult Data Date of Consult: 05/12/22 HPI Narrative HPI Narrative: SAPPHIRE LOOMIS, is a 72 year old white female who presents cardiovascular consultation based upon concerns of SVT superimposed upon a history of underlying CAD, PCI, PAF, and previous transient diminished LV systolic function/LVEF, status post AAA repair all superimposed upon a history of underlying progressive shortness of breath/dyspnea thought secondary to pneumonia, COPD, a history of small cell lung carcinoma, and anemia who required mechanical intubation/ventilation and is currently in the ICU sedated. According to previous conversations with Dr. Figueroa of the [facility] staff the patient presented with progressive shortness of breath. She was felt to have an underlying pneumonitis. She was being treated medically. She was subsequently noted to have concerns of SVT . She had been administered IV adenosine with transient improvement in her underlying cardiac rate. She subsequently required mechanical intubation/ventilation. Status post being placed in the ICU and being mechanically intubated/ventilated her heart rate was reported as coming under better control. She had been evaluated by Dr. Manning of cardiology in December of this year. At that time she was undergoing evaluation and care for concerns of acute respiratory failure/hypoxia. She had undergone evaluation at that time based upon a transthoracic echocardiogram suggesting her LVEF was diminished in the range of 25 to 30%. At that time she was treated medically for her multiple medical conditions and was not thought to be a candidate for any further invasiv e cardiovascular evaluation or care. It appears she had a follow-up transthoracic echocardiogram in January of this year where her left ventricle was reported as normal with an LVEF of 60%. Since being in the ICU it appears she is remaining in sinus rhythm. She does remain anemic. She has had radiologic studies with chest x-ray and chest CT scan that have demonstrated findings of right upper lobe/left left lower lobe infiltrates and masslike effects. She has been treated with rate control therapy. This has included IV metoprolol. It appears she is also been on oral digitalis therapy. Her ECGs were reviewed. Her ECGs suggesting supraventricular tachycardia does raise a concern as to whether or not it may have been related to an atrial tachycardia and/or atrial flutter with a 2-1 AV conduction. A subsequent ECG appeared to demonstrate sinus rhythm. [facility] Medical History (Updated 05/12/22 @ 08:[address] Vic Reyes MD) AAA (abdominal aortic aneurysm) Anemia requiring transfusions CAD (coronary artery disease) CAD (coronary artery disease) COPD exacerbation Heart attack Heart failure with reduced ejection fraction History of GI bleed Kidney stone Lung cancer Osteoporosis Paroxysmal atrial fibrillation SIADH (syndrome of inappropriate ADH production) Small cell lung cancer Tobacco abuse Home Medications atorvastatin 10 mg tablet 10 tab PO QHS CHOLESTEROL 11/13/21 [History Last Taken 05/10/22] fluticasone fur. 100 mcg-umeclid 62.5 mcg-vilant 25 mcg inhalat.powder (Trelegy Ellipta) 1 ea inhalation DAILY SHORTNESS OF BREATH 11/13/21 [History Last Taken 05/11/22] albuterol sulfate 90 mcg/actuation aerosol inhaler 2 inh inhalation Q4H PRN SOB 01/04/22 [History Last Taken 01/04/22] alendronate 70 mg tablet 70 mg PO SOLIS BONES 01/04/22 [History Last Taken ] loratadine 10 mg tablet (Claritin) 10 mg PO DAILY ALLERGIES 01/04/22 [History Last Taken 05/10/22] magnesium oxide 400 mg (241.3 mg magnesium) tablet 400 mg PO DAILY SUPPLEMENT 01/04/22 [History Last Taken 05/10/22] pantoprazole 40 mg tablet,delayed release 40 mg PO DAILY GERD 01/04/22 [History Last Taken 05/10/22] potassium chloride 20 mEq tablet,extended release 20 meq PO BID SUPPLEMENT 12/20 11/10 [History Last Taken 05/10/22] morphine 15 mg tablet,extended release (MS Contin) 15 mg PO BID PAIN 1 day #2 tabs 01/13/22 [Rx Last Taken 05/10/22] acetaminophen 325 mg tablet (Tylenol) 650 mg PO Q6H PRN PRN Pain 05/11/22 [History Last Taken 05/10/22] apixaban 5 mg tablet (Eliquis) 5 mg PO BID BLOOD THINNER 05/11/22 [History Last Taken 05/10/22] furosemide 20 mg tablet 20 mg PO DAILY FLUID 05/11/22 [History Last Taken 05/10/22] ipratropium 0.5 mg-albuterol 3 mg (2.5 mg base)/3 mL nebulization soln 3 ml inhalation Q6H PRN Shortness Of Breath 05/11/22 [History Last Taken Unknown] nicotine 21 mg/24 hr daily transdermal patch 1 patch transdermal Q24H 05/11/22 [History Last Taken 05/10/22] oxycodone-acetaminophen 10 mg-325 mg tablet (Percocet) 1 tab PO TID PAIN 05/11/22 [History Last Taken 05/10/22] sodium chloride 1 gram tablet 1,000 mg PO TID SUPPLEMENT 05/11/22 [History Last Taken 05/10/22] Allergy/AdvReac Type Severity Reaction Status Date / Time latex Allergy Rash Verified 05/11/22 10:21 Penicillins Allergy Anaphylaxis Verified 05/11/22 10:21 succinylcholine Allergy Anaphylaxis Verified 05/11/22 10:21 aspirin [ASA] AdvReac Upset Verified 05/11/22 17:07 Stomach Family History Other CAD (coronary artery disease) Heart disease Hypertension Surgical History (Updated 05/12/22 @ 08:[address] Vic Reyes MD) S/P AAA repair S/P PTCA (percutaneous transluminal coronary angioplasty) Social History Smoking Status: Former smoker alcohol intake: never substance use type: does not use ROS Review of Systems ROS Unobtainable: due to endotracheal tube Physical Exam HEENT normocephalic Neck no JVD Carotids: normal carotid upstroke Resp Auscultation: rhonchi throughout (Scattered) Cardio regular rate, regular rhythm, S1 normal heart sound and S2 normal heart sound GI normal to inspection, nondistended, normoactive bowel sounds Extremity no pedal edema Skin no rashes or lesions noted Risk Stratification Risk Stratification Applicable: No Procedure Criteria Type of Procedure Procedure Type: Elective Elective Risks - COVID COVID Risk Discussion: The surgeon/proceduralist and patient have discussed in detail the risk of exposure to and/or potential harm posed by the COVID-19 virus with having a surgery/procedure at this time versus the risk of delaying the surgery/pr ocedure. It is not possible to know either the risk of delaying the surgery or procedure or chance of getting an infection with perfect accuracy, but a joint decision was made between the patient and the surgeon/proceduralist to proceed at this time with the scheduled surgery/procedure as indicated on the consent form. Objective Data Vital Signs: Vital Signs Temp Pulse Resp BP Pulse Ox O2 Del Method O2 Flow Rate 99.6 F H 96 19 H 91/76 98 Mechanical Ventilator 10 05/12/22 07:00 05/12/22 07:03 05/12/22 07:03 05/12/22 07:00 05/12/22 07:03 05/12/22 07:45 05/11/22 18:57 FiO2 30 05/12/22 07:03 Oxygen Flow Rate (L/min) 10 Oxygen Delivery Method Mechanical Ventilator Weight: 70 lb 5.239 oz Body Mass Index (BMI) 20.5 Intake & Output: Intake and Output for Last 24 Hours 05/10/22 05/11/22 05/12/22 23:59 23:59 23:59 Intake Total 3258.85 / 3375.25 229.58 / 229.58 Output Total 600 / 600 Balance 3258.85 / 3025.25 -370.42 / -370.42 Lab / Micro Data Result Diagrams: 05/12/22 03:45 05/12/22 03:45 Labs: Laboratory Results - last 24 hr 05/11/22 11:50: WBC 9.5, RBC 2.17 L, Hgb 6.5 L, Hct 22.6 L, MCV 104.1 H, MCH 30.0, MCHC 28.8 L, RDW Std Deviation 62.7 H, RDW Coeff of Surinder 16.4 H, Plt Count 165, MPV 11.5, Immature Gran % (Auto) 1.400 H, Neut % (Auto) 90.9 H, Lymph % (Auto) 2.2 L, Parke % (Auto) 5.4, Eos % (Auto) 0.0, Baso % (Auto) 0.1, Absolute Neuts (auto) 8.6 H, Absolute Lymphs (auto) 0.21 L, Nucleated RBC % 0, Differential Comment SCANNED 05/11/22 11:50: Sodium Cancelled, Potassium Cancelled, Chloride Cancelled, Carbon Dioxide Cancelled, Anion Gap Cancelled, BUN Cancelled, Creatinine Cancelled, Estim Creat Clear Calc Cancelled, Est GFR (MDRD) Af Amer Cancelled, Est GFR (MDRD) Non-Af Cancelled, BUN/Creatinine Ratio Cancelled, Glucose Cancelled, Calcium Cancelled, Troponin I High Sens Cancelled 05/11/22 11:50: Digoxin 0.25 L 05/11/22 11:50: Vitamin B12 790 05/11/22 12:10: Lactic Acid 0.8 05/11/22 12:14: Sodium 134 L, Potassium 3.6, Chloride 101, Carbon Dioxide 27.0, Anion Gap 6, BUN 13, Creatinine 0.60, Estim Creat Clear Calc 40.34, Est GFR (MDRD) Af Amer 126, Est GFR (MDRD) Non-Af 104, BUN/Creatinine Ratio 21.6 H, Glucose 118 H, Calcium 8.0 L, Troponin I High Sens 18 05/11/22 12:14: Iron 11 L, TIBC 139 L, Iron Saturation 7.9 L, Ferritin 313 H, TSH 0.48 05/11/22 12:14: Total Creatine Kinase 32, Triglycerides 71 05/11/22 15:20: Blood Type O POSITIVE, Antibody Screen NEGATIVE, Crossmatch See Detail 05/11/22 21:30: WBC 10.4, RBC 2.26 L, Hgb 6.7 L, Hct 22.1 L, MCV 97.8 D, MCH 29 .6, MCHC 30.3 L D, RDW Std Deviation 58.4 H, RDW Coeff of Surinder 16.1 H, Plt Count 194, MPV 10.8, Immature Gran % (Auto) 1.200 H, Neut % (Auto) 92.8 H, Lymph % (Auto) 1.0 L, Parke % (Auto) 5.0, Eos % (Auto) 0.0, Baso % (Auto) 0.0, Absolute Neuts (auto) 9.7 H, Absolute Lymphs (auto) 0.10 L, Nucleated RBC % 0, Differenti al Comment SCANNED 05/12/22 03:45: WBC 8.0, RBC 2.42 L, Hgb 7.3 L, Hct 23.7 L, MCV 97.9, MCH 30.2, MCHC 30.8 L, RDW Std Deviation 59.0 H, RDW Coeff of Surinder 16.3 H, Plt Count 195, MPV 10.8, Immature Gran % (Auto) 0.500, Neut % (Auto) 95.6 H, Lymph % (Auto) 1.1 L, Parke % (Auto) 2.7, Eos % (Auto) 0.0, Baso % (Auto) 0.1, Absolute Neuts (auto) 7.7, Absolute Lymphs (auto) 0.09 L, Nucleated RBC % 0, Differential Comment SCANNED 05/12/22 03:45: PT 20.8 H, INR 1.8 05/12/22 03:45: Sodium 136, Potassium 4.4, Chloride 105, Carbon Dioxide 22.0, Anion Gap 9, BUN 15, Creatinine 0.67, Estim Creat Clear Calc 34.01, Est GFR (MDRD) Af Amer 110, Est GFR (MDRD) Non-Af 91, BUN/Creatinine Ratio 22.3 H, Glucose 135 H, Calcium 7.8 L, Total Bilirubin 0.80, AST 46 H, ALT 24, Alkaline Phosphatase 132 H, Total Protein 6.2 L, Albumin 1.8 L, Globulin 4.4 H, Albumin/Globulin Ratio 0.4 L Micro: Microbiology 05/11/22 21:45 Urine Catheter - Bailey Legionella Antigen - Final 05/11/22 21:45 Urine Catheter - Bailey Streptococcus pneumoniae Antigen (M - Final 05/11/22 11:21 Nasal Secretion SARS-CoV-2 & FLU Antigen (Rapid) - Final ABG Data ABG results: ABG 05/11/22 21:58 Specimen Type ART Sample Site L Radial pH 7.39 Bicarbonate Actual 22.6 Total CO2 24 Base Excess -2 O2 Saturation 100 H O2 % 80 ABG pCO2 37.0 ABG pO2 244 H Jorge Test Positive Respiration Rate 12 O2 Delivery Device Adult Vent Vent Mode AC Tidal Volume 400 POC PEEP 5 Cardiology Labs/Tests 05/11/22 11:50: WBC 9.5, RBC 2.17 L, Hgb 6.5 L, Hct 22.6 L, MCV 104.1 H, MCH 30.0, MCHC 28.8 L, Plt Count 165, MPV 11.5, Immature Gran % (Auto) 1.400 H, Neut % (Auto) 90.9 H, Lymph % (Auto) 2.2 L, Parke % (Auto) 5.4, Eos % (Auto) 0.0, Baso % (Auto) 0.1, Absolute Neuts (auto) 8.6 H, Nucleated RBC % 0 05/11/22 11:50: Sodium Cancelled, Potassium Cancelled, Chloride Cancelled, Carbon Dioxide Cancelled, Anion Gap Cancelled, BUN Cancelled, Creatinine Cancelled, Est GFR (MDRD) Af Amer Cancelled, Est GFR (MDRD) Non-Af Cancelled, BUN/Creatinine Ratio Cancelled, Glucose Cancelled, Calcium Cancelled 05/11/22 11:50: Digoxin 0.25 L 05/11/22 12:10: Lactic Acid 0.8 05/11/22 12:14: Sodium 134 L, Potassium 3.6, Chloride 101, Carbon Dioxide 27.0, Anion Gap 6, BUN 13, Creatinine 0.60, Est GFR (MDRD) Af Amer 126, Est GFR (MDRD) Non-Af 104, BUN/Creatinine Ratio 21.6 H, Glucose 118 H, Calcium 8.0 L 05/11/22 12:14: Iron 11 L, TIBC 139 L, Iron Saturation 7.9 L, Ferritin 313 H 05/11/22 12:14: Triglycerides 71 05/11/22 21:30: WBC 10.4, RBC 2.26 L, Hgb 6.7 L, Hct 22.1 L, MCV 97.8 D, MCH 29.6, MCHC 30.3 L D, Plt Count 194, MPV 10.8, Immature Gran % (Auto) 1.200 H, Neut % (Auto) 92.8 H, Lymph % (Auto) 1.0 L, Parke % (Auto) 5.0, Eos % (Auto) 0.0, Baso % (Auto) 0.0, Absolute Neuts (auto) 9.7 H, Nucleated RBC % 0 05/11/22 21:58: pH 7.39, Bicarbonate Actual 22.6, Base Excess -2, O2 Saturation 100 H, ABG pCO2 37.0, ABG pO2 244 H, Jorge Test Positive 05/12/22 03:45: WBC 8.0, RBC 2.42 L, Hgb 7.3 L, Hct 23.7 L, MCV 97.9, MCH 30.2, MCHC 30.8 L, Plt Count 195, MPV 10.8, Immature Gran % (Auto) 0.500, Neut % (Auto) 95.6 H, Lymph % (Auto) 1.1 L, Parke % (Auto) 2.7, Eos % (Auto) 0.0, Baso % (Auto) 0.1, Absolute Neuts (auto) 7.7, Nucleated RBC % 0 05/12/22 03:45: PT 20.8 H, INR 1.8 05/12/22 03:45: Sodium 136, Potassium 4.4, Chloride 105, Carbon Dioxide 22.0, Anion Gap 9, BUN 15, Creatinine 0.67, Est GFR (MDRD) Af Amer 110, Est GFR (MDRD) Non-Af 91, BUN/Creatinine Ratio 22.3 H, Glucose 135 H, Calcium 7.8 L, Total Bilirubin 0.80 Rhythm: As noted above EKG: As noted above ECHO: 01-07-2022 Interpretation Summary The estimated ejection fraction is 25-30 %. Severe LV systolic function with global LV Hypokinesia 01-25-2022 Interpretation Summary Normal LV size. Left ventricular systolic function is normal. The estimated ejection fraction is 60 %. Stage 1 diastolic dysfunction. The left atrium is mildly enlarged. The global longitudinal strain is normal. The global longitudinal strain = -17.5 % (normal). Radiography Diagnostic Testing: Radiology Impression Chest X-Ray 05/11/22 11:07 IMPRESSION: Masslike infiltration in the right upper lobe. This measures 7.3 cm x 4.8 cm. Increased linear markings at the left upper lobe. Correlation with CT scan is recommended for further evaluation. Electronically Signed: Chad Oakes MD at 12:47 EST , Chest CT 05/11/22 12:53 IMPRESSION: Dense irregular calcification in the right upper lobe as well as in the right lower lobe and lingular segment of the left upper lobe. Scarring with emphysematous changes and bullous formation and bronchiectasis as described. Electronically Signed: Chad Oakes MD at 14:22 EST , Chest X-Ray 05/11/22 19:54 IMPRESSION: Right upper lobe and left upper lobe masslike infiltrate. ET tube is 20mm into the right bronchus. This needs to be repositioned. Electronically Signed: Herson Butcher MD at 20:43 EST , Chest X-Ray 05/11/22 20:10 IMPRESSION: Right upper lobe and left upper lobe masslike infiltrate. ET tube is 13mm into the right bronchus. This needs to be repositioned. Electronically Signed: Herson Butcher MD at 20:41 EST , Chest X-Ray 05/11/22 20:11 IMPRESSION: Right upper lobe and left upper lobe masslike infiltrate. Electronically Signed: Herson Butcher MD at 20:32 EST , KUB X-Ray 05/11/22 20:11 IMPRESSION: 1. Right upper lobe mass or infiltrate. 2. There is a feeding tube/ nasogastric tube noted. The tip is in the region of the stomach. 3. ET tube is 18 mm into the right bronchus. Electronically Signed: Herson Butcher MD at 20:31 EST ,
--- NOTE | 2022-05-12 10:11 | CON.PCM.CC_ITS ---
Assessment & Plan Assessment/Plan (1) Acute respiratory failure with hypoxia: (2) Pneumonia: QUALIFIERS: Pneumonia type: due to Pneumococcus Laterality: right Lung location: middle lobe of lung Qualified Code(s): J13 - Pneumonia due to Streptococcus pneumoniae (3) History of lung cancer: (4) Severe protein-calorie malnutrition: PLAN: Plan RECOMMENDATIONS: 1.? Continue propofol and fentanyl for sedation 2.? Spontaneous breathing and awakening trials per protocol 3.? Steroids, antibiotics and bronchodilators. Add mucolytic. 4.? Initiate tube feeds 5.? Blood transfusions as necessary to keep hemoglobin greater than 7 IMPRESSIONS: 1.??Acute hypoxic respiratory failure in the setting of COPD and history of small cell lung cancer On presentation, patient did appear to have a right upper lobe infiltrate. High fevers have also been noted. Imaging studies are somewhat limited given previous small cell lung cancer with intervention. ABG shows adequate oxygenation and ventilation on the current settings. Patient may benefit from gentle diuresis. 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 Patient does have a lower red blood cell count, but no obvious bleeding has been noted. We will continue with PPI. Patient's sodium appears to be within normal limits, but will have to watch for SIADH. Patient does appear to have an element of iron deficiency, but would not recommend iron supplementation until sepsis has been addressed 3.??Cardiomyopathy/paroxysmal A. fib/SVT Patient with significant tachycardia leading to current respiratory failure. This may have added to pulmonary infiltrates and cardiac decompensation. Patient's oxygen requirements have improved significantly after being on the ventilator. Patient currently being treated with digoxin and is in normal sinus rhythm. Cardiology has been consulted. Recent echocardiogram was suggestive of normalization of EF, but intermittent diuresis would be recommended. 4.??Chronic pain syndrome/osteoporosis/GERD with history of GI bleed/CAD/debility Complicates care, management, recovery and prognosis.? Patient is curre ntly on a fentanyl drip.? We will have to watch for complications of narcotics given problem #1.? Patient does have significant kyphosis with osteoporosis. Albumin is significantly depressed. Patient would benefit from initiation of tube feeds TIME: 32 minutes critical care time spent addressing patient's acute hypoxic respiratory failure, SVT, debility, review of all data and collaboration with care team HPI Consult Data Date of Consult: 05/12/22 HPI Narrative Reason for Consultation: Respiratory failure HPI Narrative: SAPPHIRE LOOMIS is a 72 F, with past medical history listed below and known to me from a previous admission, who presents to [facility] on 05/11 secondary to 2 days of progressive shortness of breath. Patient does have chronic hypoxic respiratory failure on 3 L/min at all times secondary to history of COPD and small cell lung cancer. Patient has attempted to increase her oxygen with little improvement. Patient did report a cough that was productive and a subjective fever overnight. Patient reportedly is in remission for her small cell lung cancer and is not currently smoking. Patient does take Eliquis and digoxin at baseline. It is unclear on when the last dose was given. In the ER, patient was noted to have a temperature of 101.9 ?F, tachycardic at 112 bpm and saturating well on 3 L nasal cannula. Patient was intermittently tachypneic at 24 breaths/min and near the end of her ER stay started to become hypotensive and 94/48. Laboratory work-up showed a white blood cell count of 9.5, hemoglobin of 6.5 and platelets of 165. Digoxin level was noted at 0.25 and chemistries showed a sodium of 134, glucose of 118 and a normal lactate of 0.8. Chest x-ray showed a significant infiltrate in the right upper lobe and a subsequent CT scan of the chest showed a dense irregular calcification of the right upper lobe with scarring, emphysematous changes and bronchiectasis. Patient was given fluids related to the hypotension and initiated on Levaquin therapy secondary to pneumonia. Patient was admitted to the floor for further evaluation. While on the floor, patient quickly decompensated. Patient reportedly had katherine nosine 6, 12 and 12 with no response. Patient had to be transferred to the intensive care unit and was intubated shortly thereafter. Patient was noted to be in SVT with a heart rate of 210 bpm. Patient reportedly was on telemetry during this episode, but this is not available for review. Since being the intensive care unit, patient has stabilized from a respiratory standpoint requiring only 40% FiO2 to maintain saturations. Patient was significantly febrile with a T-max of 39.4 ?C. Patient is not able to provide any additional information. All medical history was obtained from the [facility] medical record. [facility] Medical History AAA (abdominal aortic aneurysm) Anemia requiring transfusions CAD (coronary artery disease) CAD (coronary artery disease) COPD exacerbation Heart attack Heart failure with reduced ejection fraction History of GI bleed Kidney stone Lung cancer Osteoporosis Paroxysmal atrial fibrillation SIADH (syndrome of inappropriate ADH production) Small cell lung cancer Tobacco abuse Home Medications atorvastatin 10 mg tablet 10 tab PO QHS CHOLESTEROL 11/13/21 [History Last Taken 05/10/22] fluticasone fur. 100 mcg-umeclid 62.5 mcg-vilant 25 mcg inhalat.powder (Trelegy Ellipta) 1 ea inhalation DAILY SHORTNESS OF BREATH 11/13/21 [History Last Taken 05/11/22] albuterol sulfate 90 mcg/actuation aerosol inhaler 2 inh inhalation Q4H PRN SOB 01/04/22 [History Last Taken 01/04/22] alendronate 70 mg tablet 70 mg PO SOLIS BONES 01/04/22 [History Last Taken 05/08/22] loratadine 10 mg tablet (Claritin) 10 mg PO DAILY ALLERGIES 01/04/22 [History Last Taken 05/10/22] magnesium oxide 400 mg (241.3 mg magnesium) tablet 400 mg PO DAILY SUPPLEMENT 01/04/22 [History Last Taken 05/10/22] pantoprazole 40 mg tablet,delayed release 40 mg PO DAILY GERD 01/04/22 [History Last Taken 05/10/22] potassium chloride 20 mEq tablet,extended release 20 meq PO BID SUPPLEMENT 01/04/22 [History Last Taken 05/10/22] morphine 15 mg tablet,extended release (MS Contin) 15 mg PO BID PAIN 1 day #2 tabs 01/13/22 [Rx Last Taken 05/10/22] acetaminophen 325 mg tablet (Tylenol) 650 mg PO Q6H PRN PRN Pain 05/11/22 [History Last Taken 05/10/22] apixaban 5 mg tablet (Eliquis) 5 mg PO BID BLOOD THINNER 05/11/22 [History Last Taken 05/10/22] furosemide 20 mg tablet 20 mg PO DAILY FLUID 05/11/22 [History Last Taken 05/10/22] ipratropium 0.5 mg-albuterol 3 mg (2.5 mg base)/3 mL nebulization soln 3 ml inhalation Q6H PRN Shortness Of Breath 12/21/22 [History Last Taken Unknown] nicotine 21 mg/24 hr daily transdermal patch 1 patch transdermal Q24H 05/11/22 [History Last Taken 05/10/22] oxycodone-acetaminophen 10 mg-325 mg tablet (Percocet) 1 tab PO TID PAIN 05/11/22 [History Last Taken 05/10/22] sodium chloride 1 gram tablet 1,000 mg PO TID SUPPLEMENT 05/11/22 [History Last Taken 05/10/22] Allergy/AdvReac Type Severity Reaction Status Date / Time latex Allergy Rash Verified 05/11/22 10:21 Penicillins Allergy Anaphylaxis Verified 05/11/22 10:21 succinylcholine Allergy Anaphylaxis Verified 05/11/22 10:21 aspirin [ASA] AdvReac Upset Verified 05/11/22 17:07 Stomach Family History Other CAD (coronary artery disease) Heart disease Hypertension Surgical History S/P AAA repair S/P PTCA (percutaneous transluminal coronary angioplasty) Social History Smoking Status: Former smoker alcohol intake: never substance use type: does not use ROS Review of Systems ROS Unobtainable: due to endotracheal tube Physical Exam Narrative Review of chest imaging did show a right mainstem intubation that had been corrected by this morning. Const Constitutional Narrative: Sedated. Good vent synchrony. General Appearance: patient mechanically ventilated HEENT normocephalic and head/scalp atraumatic HEENT Narrative: Alopecia with temporal wasting Mouth: endotracheal tube in place and OG tube in place Eyes PERRL, EOMs intact bilaterally, conjunctivae normal and no scleral icterus Neck no lymphadenopathy, supple, no JVD and no carotid bruits Chest Chest: abnormal inspection of the chest increased A-P diameter Resp no retractions and no use of accessory muscles Auscultation: rhonchi right upper and diminished lung sounds; Negative for rales or wheezes Cardio regular rate, regular rhythm, S1 normal heart sound, S2 normal heart sound, no murmurs, no rub, no gallops, no clicks and no JVD Cardio Narrative: Sinus rhythm noted on telemetry GI normal to inspection, nondistended, normoactive bowel sounds, soft to palpation, non-tender and non-distended Extremity no clubbing, cyanosis or edema Skin no rashes or lesions noted, no wounds, skin turgor normal, no jaundice, no petechiae and no mottling Hair: total alopecia Neuro CN's II-XII intact bilaterally, moves all extremities and no focal motor deficits Neuro Narrative: Generalized weakness noted. Spontaneous movement of all extremities Speech: speech normal Psych Psych Narrative: RASS -2 Mood & Affect: flat affect Lab / Micro Data Attestation: I reviewed the patient's lab results. Result Diagrams: 05/12/22 03:45 05/12/22 03:45 Labs: Laboratory Results - last 24 hr 05/11/22 11:50: WBC 9.5, RBC 2.17 L, Hgb 6.5 L, Hct 22.6 L, MCV 104.1 H, MCH 30.0, MCHC 28.8 L, RDW Std Deviation 62.7 H, RDW Coeff of Surinder 16.4 H, Plt Count 165, MPV 11.5, Immature Gran % (Auto) 1.400 H, Neut % (Auto) 90.9 H, Lymph % (Auto) 2.2 L, [place] % (Auto) 5.4, Eos % (Auto) 0.0, Baso % (Auto) 0.1, Absolute Neuts (auto) 8.6 H, Absolute Lymphs (auto) 0.21 L, Nucleated RBC % 0, Differential Comment SCANNED 05/11/22 11:50: Sodium Cancelled, Potassium Cancelled, Chloride Cancelled, Carbon Dioxide Cancelled, Anion Gap Cancelled, BUN Cancelled, Creatinine Cancelled, Estim Creat Clear Calc Cancelled, Est GFR (MDRD) Af Amer Cancelled, Est GFR (MDRD) Non-Af Cancelled, BUN/Creatinine Ratio Cancelled, Glucose Cancelled, Calcium Cancelled, Troponin I High Sens Cancelled 05/11/22 11:50: Digoxin 0.25 L 05/11/22 11:50: Vitamin B12 790 05/11/22 12:10: Lactic Acid 0.8 05/11/22 12:14: Sodium 134 L, Potassium 3.6, Chloride 101, Carbon Dioxide 27.0, Anion Gap 6, BUN 13, Creatinine 0.60, Estim Creat Clear Calc 40.34, Est GFR (MDRD) Af Amer 126, Est GFR (MDRD) Non-Af 104, BUN/Creatinine Ratio 21.6 H, Glucose 118 H, Calcium 8.0 L, Troponin I High Sens 18 05/11/22 12:14: Iron 11 L, TIBC 139 L, Iron Saturation 7.9 L, Ferritin 313 H, TSH 0.48 05/11/22 12:14: Total Creatine Kinase 32, Triglycerides 71 05/11/22 15:20: Blood Type O POSITIVE, Antibody Screen NEGATIVE, Crossmatch See Detail 05/11/22 21:30: WBC 10.4, RBC 2.26 L, Hgb 6.7 L, Hct 22.1 L, MCV 97.8 D, MCH 29.6, MCHC 30.3 L D, RDW Std Deviation 58.4 H, RDW Coeff of Surinder 16.1 H, Plt Count 194, MPV 10.8, Immature Gran % (Auto) 1.200 H, Neut % (Auto) 92.8 H, Lymph % (Auto) 1.0 L, [place] % (Auto) 5.0, Eos % (Auto) 0.0, Baso % (Auto) 0.0, Absolute Neuts (auto) 9.7 H, Absolute Lymphs (auto) 0.10 L, Nucleated RBC % 0, Differential Comment SCANNED 05/12/22 03:45: WBC 8.0, RBC 2.42 L, Hgb 7.3 L, Hct 23.7 L, MCV 97.9, MCH 30.2, MCHC 30.8 L, RDW Std Deviation 59.0 H, RDW Coeff of Surinder 16.3 H, Plt Count 195, MPV 10.8, Immature Gran % (Auto) 0.500, Neut % (Auto) 95.6 H, Lymph % (Auto) 1.1 L, [place] % (Auto) 2.7, Eos % (Auto) 0.0, Baso % (Auto) 0.1, Absolute Neuts (auto) 7.7, Absolute Lymphs (auto) 0.09 L, Nucleated RBC % 0, Differential Comment SCANNED 05/12/22 03:45: PT 20.8 H, INR 1.8 05/12/22 03:45: Sodium 136, Potassium 4.4, Chloride 105, Carbon Dioxide 22.0, Anion Gap 9, BUN 15, Creatinine 0.67, Estim Creat Clear Calc 34.01, Est GFR (MDRD) Af Amer 110, Est GFR (MDRD) Non-Af 91, BUN/Creatinine Ratio 22.3 H, Glucose 135 H, Calcium 7.8 L, Total Bilirubin 0.80, AST 46 H, ALT 24, Alkaline Phosphatase 132 H, Total Protein 6.2 L, Albumin 1.8 L, Globulin 4.4 H, Albumin/Globulin Ratio 0.4 L Micro: Microbiology 05/11/22 21:45 Urine Catheter - Bailey Legionella Antigen - Final 05/11/22 21:45 Urine Catheter - Bailey Streptococcus pneumoniae Antigen (M - Final 05/11/22 11:21 Nasal Secretion SARS-CoV-2 & FLU Antigen (Rapid) - Final ABG Data ABG results: ABG 05/11/22 21:58 Specimen Type ART Sample Site L Radial pH 7.39 Bicarbonate Actual 22.6 Total CO2 24 Base Excess -2 O2 Saturation 100 H O2 % 80 ABG pCO2 37.0 ABG pO2 244 H Jorge Test Positive Respiration Rate 12 O2 Delivery Device Adult Vent Vent Mode AC Tidal Volume 400 POC PEEP 5 Attestation: I personally reviewed and interpreted this ABG as follows: (Com pensated metabolic acidosis with increased AA gradient) Radiology Impression Chest X-Ray 05/11/22 11:07 IMPRESSION: Masslike infiltration in the right upper lobe. This measures 7.3 cm x 4.8 cm. Increased linear markings at the left upper lobe. Correlation with CT scan is recommended for further evaluation. Electronically Signed: Chad Oakes MD at 12:47 EST , Chest CT 05/11/22 12:53 IMPRESSION: Dense irregular calcification in the right upper lobe as well as in the right lower lobe and lingular segment of the left upper lobe. Scarring with emphysematous changes and bullous formation and bronchiectasis as described. Electronically Signed: Chad Oakes MD at 14:22 EST , Chest X-Ray 05/11/22 19:54 IMPRESSION: Right upper lobe and left upper lobe masslike infiltrate. ET tube is 20mm into the right bronchus. This needs to be repositioned. Electronically Signed: Herson Butcher MD at 20:43 EST , Chest X-Ray 05/11/22 20:10 IMPRESSION: Right upper lobe and left upper lobe masslike infiltrate. ET tube is 13mm into the right bronchus. This needs to be repositioned. Electronically Signed: Herson Butcher MD at 20:41 EST Reading Location ID and State: [facility] / [place] , Service support , Chest X-Ray 05/11/22 20:11 IMPRESSION: Right upper lobe and left upper lobe masslike infiltrate. Electronically Signed: Herson Butcher MD at 20:32 EST , KUB X-Ray 05/11/22 20:11 IMPRESSION: 1. Right upper lobe mass or infiltrate. 2. There is a feeding tube/ nasogastric tube noted. The tip is in the region of the stomach. 3. ET tube is 18 mm into the right bronchus. Electronically Signed: Herson Butcher MD at 20:31 EST , Charges/Coding Procedures Hospitalists Procedures: [id number] Critial Care 1st Hr
[2022-05-12] MEDS: Chlorhexidine 15 ML PO ×2 (10:58→22:28)
--- NOTE | 2022-05-12 12:05 | PCM.PN.HOSP ---
Subjective Subjective Intubated and sedated, no issues overnight. She was initially admitted to the floor but then had to be transferred to the ICU after she became tachycardic with SVT and had to be given adenosine multiple times Objective Data Objective Data Vital Signs: Vital Signs Temp Pulse Resp BP Pulse Ox O2 Del Method O2 Flow Rate 99.6 F H 98 16 91/76 95 Mechanical Ventilator 10 05/12/22 07:00 05/12/22 12:00 05/12/22 10:12 05/12/22 07:00 05/12/22 10:12 05/12/22 07:45 05/11/22 18:57 FiO2 40 05/12/22 10:12 Oxygen Flow Rate (L/min) 10 Oxygen Delivery Method Mechanical Ventilator Weight: 94 lb 2.198 oz Body Mass Index (BMI) 20.5 Intake & Output: Intake and Output for Last 24 Hours 05/11/22 05/12/22 05/13/22 03:59 03:59 03:59 Intake Total 3424.45 / 3440.85 173.98 / 173.98 Output Total 350 / 350 350 / 350 Balance 3074.45 / 3090.85 -176.02 / -176.02 Lab / Micro Data Result Diagrams: 05/12/22 03:45 05/12/22 03:45 Labs: Laboratory Results - last 24 hr 05/11/22 11:50: WBC 9.5, RBC 2.17 L, Hgb 6.5 L, Hct 22.6 L, MCV 104.1 H, MCH 30.0, MCHC 28.8 L, RDW Std Deviation 62.7 H, RDW Coeff of Surinder 16.4 H, Plt Count 165, MPV 11.5, Immature Gran % (Auto) 1.400 H, Neut % (Auto) 90.9 H, Lymph % (Auto) 2.2 L, [place] % (Auto) 5.4, Eos % (Auto) 0.0, Baso % (Auto) 0.1, Absolute Neuts (auto) 8.6 H, Absolute Lymphs (auto) 0.21 L, Nucleated RBC % 0, Differential Comment SCANNED 05/11/22 11:50: Sodium Cancelled, Potassium Cancelled, Chloride Cancelled, Carbon Dioxide Cancelled, Anion Gap Cancelled, BUN Cancelled, Creatinine Cancelled, Estim Creat Clear Calc Cancelled, Est GFR (MDRD) Af Amer Cancelled, Est GFR (MDRD) Non-Af Cancelled, BUN/Creatinine Ratio Cancelled, Glucose Cancelled, Calcium Cancelled, Troponin I High Sens Cancelled 05/11/22 11:50: Digoxin 0.25 L 05/11/22 11:50: Vitamin B12 790 05/11/22 12:10: Lactic Acid 0.8 05/11/22 12:14: Sodium 134 L, Potassium 3.6, Chloride 101, Carbon Dioxide 27.0, Anion Gap 6, BUN 13, Creatinine 0.60, Estim Creat Clear Calc 40.34, Est GFR (MDRD) Af Amer 126, Est GFR (MDRD) Non-Af 104, BUN/Creatinine Ratio 21.6 H, Glucose 118 H, Calcium 8.0 L, Troponin I High Sens 18 05/11/22 12:14: Iron 11 L, TIBC 139 L, Iron Saturation 7.9 L, Ferritin 313 H, TSH 0.48 05/11/22 12:14: Total Creatine Kinase 32, Triglycerides 71 05/11/22 15:20: Blood Type O POSITIVE, Antibody Screen NEGATIVE, Crossmatch See Detail 05/11/22 21:30: WBC 10.4, RBC 2.26 L, Hgb 6.7 L, Hct 22.1 L, MCV 97.8 D, MCH 29.6, MCHC 30.3 L D, RDW Std Deviation 58.4 H, RDW Coeff of Surinder 16.1 H, Plt Count 194, MPV 10.8, Immature Gran % (Auto) 1.200 H, Neut % (Auto) 92.8 H, Lymph % (Auto) 1.0 L, [place] % (Auto) 5.0, Eos % (Auto) 0.0, Baso % (Auto) 0.0, Absolute Neuts (auto) 9.7 H, Absolute Lymphs (auto) 0.10 L, Nucleated RBC % 0, Differential Comment SCANNED 05/12/22 03:45: WBC 8.0, RBC 2.42 L, Hgb 7.3 L, Hct 23.7 L, MCV 97.9, MCH 30.2, MCHC 30.8 L, RDW Std Deviation 59.0 H, RDW Coeff of Surinder 16.3 H, Plt Count 195, MPV 10.8, Immature Gran % (Auto) 0.500, Neut % (Auto) 95.6 H, Lymph % (Auto) 1.1 L, [place] % (Auto) 2.7, Eos % (Auto) 0.0, Baso % (Auto) 0.1, Absolute Neuts (auto) 7.7, Absolute Lymphs (auto) 0.09 L, Nucleated RBC % 0, Differential Comment SCANNED 05/12/22 03:45: PT 20.8 H, INR 1.8 05/12/22 03:45: Sodium 136, Potassium 4.4, Chloride 105, Carbon Dioxide 22.0, Anion Gap 9, BUN 15, Creatinine 0.67, Estim Creat Clear Calc 34.01, Est GFR (MDRD) Af Amer 110, Est GFR (MDRD) Non-Af 91, BUN/Creatinine Ratio 22.3 H, Glucose 135 H, Calcium 7.8 L, Total Bilirubin 0.80, AST 46 H, ALT 24, Alkaline Phosphatase 132 H, Total Protein 6.2 L, Albumin 1.8 L, Globulin 4.4 H, Albumin/Globulin Ratio 0.4 L Micro: Microbiology 05/11/22 19:40 Sputum, Expectorated/Coughed Gram Stain - Final 05/11/22 21:45 Urine Catheter - Bailey Legionella Antigen - Final 05/11/22 21:45 Urine Catheter - Bailey Streptococcus pneumoniae Antigen (M - Final 05/11/22 11:21 Nasal Secretion SARS-CoV-2 & FLU Antigen (Rapid) - Final ABG Data ABG results: ABG 05/11/22 21:58 Specimen Type ART Sample Site L Radial pH 7.39 Bicarbonate Actual 22.6 Total CO2 24 Base Excess -2 O2 Saturation 100 H O2 % 80 ABG pCO2 37.0 ABG pO2 244 H Jorge Test Positive Respiration Rate 12 O2 Delivery Device Adult Vent Vent Mode AC Tidal Volume 400 POC PEEP 5 Radiography Diagnostic Testing: Radiology Impression Chest X-Ray 05/11/22 11:07 IMPRESSION: Masslike infiltration in the right upper lobe. This measures 7.3 cm x 4.8 cm. Increased linear markings at the left upper lobe. Correlation with CT scan is recommended for further evaluation. Electronically Signed: Chad Oakes MD at 12:47 EST , Chest CT 05/11/22 12:53 IMPRESSION: Dense irregular calcification in the right upper lobe as well as in the right lower lobe and lingular segment of the left upper lobe. Scarring with emphysematous changes and bullous formation and bronchiectasis as described. Electronically Signed: Chad Oakes MD at 14:22 EST , Chest X-Ray 05/11/22 19:54 IMPRESSION: Right upper lobe and left upper lobe masslike infiltrate. ET tube is 20mm into the right bronchus. This needs to be repositioned. Electronically Signed: Herson Butcher MD at 20:43 EST , Chest X-Ray 05/11/22 20:10 IMPRESSION: Right upper lobe and left upper lobe masslike infiltrate. ET tube is 13mm into the right bronchus. This needs to be repositioned. Electronically Signed: Herson Butcher MD at 20:41 EST , Chest X-Ray 05/11/22 20:11 IMPRESSION: Right upper lobe and left upper lobe masslike infiltrate. Electronically Signed: Herson Butcher MD at 20:32 EST , KUB X-Ray 05/11/22 20:11 IMPRESSION: 1. Right upper lobe mass or infiltrate. 2. There is a feeding tube/ nasogastric tube noted. The tip is in the region of the stomach. 3. ET tube is 18 mm into the right bronchus. Electronically Signed: Herson Butcher MD at 20:31 EST , Physical Exam Const General Appearance: intubated and patient mechanically ventilated HEENT normocephalic Eyes PERRL and conjunctivae normal Neck supple and no JVD Resp normal respiratory effort, no retractions and no use of accessory muscles Resp Narrative: Diminished Auscultation: rhonchi and wheezes; Negative for crackles or rales Cardio regular rate, regular rhythm, S1 normal heart sound, S2 normal heart sound and no murmurs GI soft to palpation and non-distended; Negative for hepatosplenomegaly Extremity no clubbing, cyanosis or edema Skin no rashes or lesions noted Neuro Sensorium / Orientation: sedated on vent Psych Appearance: intubated Assessment & Plan Assessment/Plan (1) Pneumonia: QUALIFIERS: Pneumonia type: due to Pneumococcus Laterality: right Lung location: middle lobe of lung Qualified Code(s): J13 - Pneumonia due to Streptococcus pneumoniae (2) Acute respiratory failure with hypoxia: PLAN: Plan 1. Acute hypoxic respiratory failure secondary to right middle lobe pneumonia/SVT/COPD ? She had to be intubated yesterday after going into SVT requiring multiple rounds of adenosine unfortunate no EKG was captured so it is unclear as to what the overriding rhythm was ? Continue with a PPI while intubated ? Appreciate pulmonology's assistance ? We will continue with Levaquin and await infectious data ? We will continue with steroids ? We will continue with metoprolol for rate control, and she would benefit from an echo which is pending 2. Small cell lung cancer with associated SIADH ? Apparently told the admitting physician that she was in remission, she does follow with oncology and per their last note she is undergoing radiation treatments. There was some question as to whether or not she had metastatic disease ? We will continue to monitor her sodium for her SIADH and be cautious with IV fluid 3. HTN/HLD/CAD status post stent/paroxysmal A. fib/chronic systolic CHF/peripheral artery disease ? We will resume blood pressure medications as able ? We will hold her Eliquis ? We will continue with her Lasix while intubated, and also digoxin to help with the rate control as well as Toprol that she was darted on while here ? Echo in December with an EF of 25 to 30% and then a recheck in January showed the EF was 60% ? She has status post aortofemoral bypass DVT: SCDs, she is normally on Eliquis at home home Charges/Coding Visit Charges Inpatient E&M: 62279 Subs Hosp L2
[2022-05-12] MEDS: Furosemide 20 MG/2 ML VIAL IV (12:26)
[2022-05-12] MEDS: Vital AF 1.2 Cal Liquid 1,000 ML 15 ML GT (12:26)
[2022-05-12] MEDS: Propofol 10MG/Ml 1,000 MG/100 ML Bottle 3.9 MG CONT INF (13:19)
--- NOTE | 2022-05-12 15:33 | CASEMGMT ---
[facility] DC Planning: Call placed to pt's spouse to complete DC Planning assessment, voicemail received and message left requesting a return call. Visit to bedside. Pt on resting quietly on vent and family not at bedside at this time. Will follow-up with pt's family to complete assessment. Sarath Dangelo RN CM
[2022-05-12] MEDS: Potassium Chloride Oral Soln 20 MEQ/15 ML UDC GT (17:08)
[2022-05-12] MEDS: Atorvastatin Calcium 10 MG Tablet GT (22:28)
[2022-05-13] VITALS (40 sets, daily range): BP systolic 82–120; BP diastolic 48–70; PULSE 79–135; RESP 12–25; TEMP 37–37.8; O2SAT 91–100
[2022-05-13] MEDS: guaiFENesin 10 ML UDC (200MG/10ML) GT ×6 (01:04→21:24)
[2022-05-13] MEDS: Ipratropium/Albuterol Sulfate 3 ML AMPUL.NEB INHALATION ×4 (01:33→18:46)
[2022-05-13] MEDS: Propofol 10MG/Ml 1,000 MG/100 ML Bottle 3.9 MG CONT INF (02:30)
[2022-05-13 04:21] LABS: Absolute Lymphocyte Count 0.06 X10^3/uL (0.83-4.51); Absolute Neutrophil Count 6.5 X10^3/uL (2.0-7.7); Basophil# 0.01 X10^3/uL; Basophil% 0.1 % (0-1); Hematocrit 20.7 % (37-47); Hemoglobin 6.5 g/dL (12.0-15.0); Lymphocyte # 0.06 X10^3/ul (0.83-4.51); Lymphocyte % 0.9 % (19-41); Mean Corp Hgb Conc 31.4 g/dL (32-36); Mean Corpuscular Hgb 30.5 pg (27.0-32.0); Mean Corpuscular Volume 97.2 fL (81-99); Mean Platelet Vol. 10.8 fl (6.2-12.0); Monocyte# 0.19 X10^3/uL; Monocyte% 2.8 % (0-10); NRBC Flagged by Analyzer 0 % (0-5); Neutrophil # 6.46 X10^3/uL (2.7-7.7); Neutrophil % 95.8 % (47-70); POSITIVE DIFFERENTIAL YES; Platelet Count 172 K/mm3 (150-450); RBC Distribution Width CV 16.6 % (11.6-14.6); Red Blood Count 2.13 M/mm3 (4.2-5.4); White Blood Count 6.8 K/mm3 (4.4-11.0)
[2022-05-13 04:41] LABS: Differential Indicated SCAN CRITERIA MET
[2022-05-13 04:42] LABS: Anion Gap 5 (5-15); BUN 23 mg/dL (7-18); BUN/Creat Ratio 38.5 RATIO (10-20); Calcium,Total 8.1 mg/dL (8.5-10.1); Chloride 109 mmol/L (98-107); EST Glomerular Filtration Rate 105 mL/min (>60); Est Glom Filt Rate - Afr Amer 126 mL/min (>60); Estimated Creatinine Clearance 33.77 ml/min; Glucose 171 mg/dL (74-106); Potassium 4.1 mmol/L (3.5-5.1); Sodium Level 138 mmol/L (136-145)
[2022-05-13 05:24] LABS: Differential Comment SCANNED
[2022-05-13] MEDS: CHLORHEXIDINE GLUC 2% CLOTH 1 EACH TOWELETTE TOPICAL (05:50)
[2022-05-13] MEDS: 0.9% Saline Lock 10 ML Syringe IV ×3 (05:50→13:11)
[2022-05-13] MEDS: Sodium Chloride 1 GM Tablet PO ×3 (05:51→21:18)
[2022-05-13] MEDS: Potassium Chloride Oral Soln 20 MEQ/15 ML UDC GT ×2 (07:56→18:09)
[2022-05-13] MEDS: Loratadine 10 MG Tablet GT (07:57)
[2022-05-13] MEDS: Digoxin 250 MCG Tablet GT (07:57)
[2022-05-13] MEDS: Senna/Docusate Sodium 1 Tablet 2 TABLET GT (08:00)
[2022-05-13] MEDS: Acetaminophen 650 MG/20 ML UDC GT (08:00)
--- NOTE | 2022-05-13 08:07 | PCM.PN.INT ---
Assessment & Plan Assessment/Plan (1) Acute respiratory failure with hypoxia: (2) Pneumonia: QUALIFIERS: Pneumonia type: due to Pneumococcus Laterality: right Lung location: middle lobe of lung Qualified Code(s): J13 - Pneumonia due to Streptococcus pneumoniae (3) History of lung cancer: (4) Severe protein-calorie malnutrition: PLAN: Plan RECOMMENDATIONS: 1.? Continue fentanyl. Transition to Precedex 2.? Spontaneous breathing and awakening trials per protocol 3.? Steroids, antibiotics and bronchodilators. Add mucolytic. 4.? Initiate tube feeds 5.? Blood transfusions as necessary to keep hemoglobin greater than 7 IMPRESSIONS: 1.??Acute hypoxic respiratory failure in the setting of COPD and history of small cell lung cancer On presentation, patient did appear to have a right upper lobe infiltrate. High fevers have also been noted. Imaging studies are somewhat limited given previous small cell lung cancer with intervention. ABG shows adequate oxygenation and ventilation on the current settings. Patient may benefit from gentle diuresis. 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 Patient does have a lower red blood cell count, but no obvious bleeding has been noted. We will continue with PPI. Patient's sodium appears to be within normal limits, but will have to watch for SIADH. Patient does appear to have an element of iron deficiency. We will transfuse 1 unit of packed red blood cells 3.??Cardiomyopathy/paroxysmal A. fib/SVT Patient with significant tachycardia leading to current respiratory failure. This may have added to pulmonary infiltrates and cardiac decompensation. Patient's oxygen requirements have improved significantly after being on the ventilator. Patient currently being treated with digoxin and is in normal sinus rhythm. Cardiology has been consulted. Recent echocardiogram was suggestive of normalization of EF, but intermittent diuresis would still be recommended. 4.??Chronic pain syndrome/osteoporosis/GERD with history of GI bleed/CAD/debility Complicates care, management, recovery and prognosis.? Patient is currently on a fentanyl drip.? We will have to watch for complications of narcotics given problem #1.? Patient does have significant kyphosis with osteoporosis. Albumin is significantly depressed. Patient would benefit from initiation of tube feeds TIME: 34 minutes critical care time spent addressing patient's acute hypoxic respiratory failure, SVT, debility, review of all data and collaboration with care team Subjective Subjective Patient did okay overnight. Patient with significant tachycardia associated with spontaneous breathing trial. Nursing also reported agitation with discontinuation of propofol. No active bleeding has been reported by nursing. Nursing continues to report moderate to large endotracheal secretions Objective Data Objective Data Blood pressures have been soft, but no pressors have been required. Vital Signs: Vital Signs Temp Pulse Resp BP Pulse Ox O2 Del Method O2 Flow Rate 37.4 C H 105 H 14 91/50 L 94 Mechanical Ventilator 10 05/13/22 06:00 05/13/22 06:55 05/13/22 06:55 05/13/22 06:00 05/13/22 06:55 05/13/22 06:00 05/11/22 18:57 FiO2 30 05/13/22 06:55 Oxygen Flow Rate (L/min) 10 Oxygen Delivery Method Mechanical Ventilator Weight: 43.5 kg Body Mass Index (BMI) 20.5 Intake & Output: Intake and Output for Last 24 Hours 05/11/22 05/12/22 05/13/22 23:59 23:59 23:59 Intake Total 3258.85 / 3375.25 893.61 / 960.01 663.33 / 663.33 Output Total 1500 / 1750 400 / 400 Balance 3258.85 / 3025.25 -606.39 / -789.99 263.33 / 263.33 Lab / Micro Data Attestation: I reviewed the patient's lab results. Result Diagrams: 05/13/22 04:15 05/13/22 04:15 Labs: Laboratory Results - last 24 hr 05/11/22 15:20: Crossmatch See Detail 05/13/22 04:15: WBC 6.8, RBC 2.13 L, Hgb 6.5 L, Hct 20.7 L, MCV 97.2, MCH 30.5, MCHC 31.4 L, RDW Std Deviation 59.0 H, RDW Coeff of Surinder 16.6 H, Plt Count 172, MPV 10.8, Immature Gran % (Auto) 0.400, Neut % (Auto) 95.8 H, Lymph % (Auto) 0.9 L, Sharkey % (Auto) 2.8, Eos % (Auto) 0.0, Baso % (Auto) 0.1, Absolute Neuts (auto) 6.5, Absolute Lymphs (auto) 0.06 L, Nucleated RBC % 0, Differential Comment SCANNED 05/13/22 04:15: Sodium 138, Potassium 4.1, Chloride 109 H, Carbon Dioxide 24.0, Anion Gap 5, BUN 23 H, Creatinine 0.60, Estim Creat Clear Calc 33.77, Est GFR (MDRD) Af Amer 126, Est GFR (MDRD) Non-Af 105, BUN/Creatinine Ratio 38.5 H, Glucose 171 H, Calcium 8.1 L Micro: Microbiology 05/11/22 11:30 Blood Culture (Wb) #2 - Left Wrist Blood Culture - Preliminary No growth in 48 hours. 05/11/22 11:50 Blood Culture (Wb) - Right Wrist Blood Culture - Preliminary No growth in 48 hours. 05/11/22 19:40 Sputum, Expectorated/Coughed Gram Stain - Final 05/11/22 21:45 Urine Catheter - Bailey Legionella Antigen - Final 05/11/22 21:45 Urine Catheter - Bailey Streptococcus pneumoniae Antigen (M - Final 05/11/22 11:21 Nasal Secretion SARS-CoV-2 & FLU Antigen (Rapid) - Final Radiography Diagnostic Testing: Radiology Impression Echocardiogram 05/11/22 20:16 Interpretation Summary Moderate global left ventricular systolic dysfunction. The estimated ejection fraction is 35 %. Apical false tendon noted. Mildly dilated right ventricle. Mild global right ventricular systolic dysfunction. The left atrium is mildly enlarged. There is mild mitral annular calcification. Mild diffuse mitral valve thickening. Mild (1+) mitral valve insufficiency. Mild tricuspid valve insufficiency. Mild focal aortic valve calcification. Trivial pericardial effusion. There are no echocardiographic indications of cardiac tamponade. Right ventricular systolic pressure estimated to be 35 mmHg. Diastolic function is indeterminate. Ordering Physician: Jake Figueroa Referring Physician: Crissy Lema Performed By: Jocelyn Humphrey, RDCS, RVT Physical Exam Const Constitutional Narrative: Sedated. Good vent synchrony. General Appearance: frail and patient mechanically ventilated HEENT normocephalic and head/scalp atraumatic Eyes PERRL, EOMs intact bilaterally, conjunctivae normal and no scleral icterus Neck no lymphadenopathy, supple, no JVD and no carotid bruits Chest Chest: abnormal inspection of the chest increased A-P diameter Resp no retractions and no use of accessory muscles Auscultation: rhonchi right upper and diminished lung sounds; Negative for rales or wheezes Cardio S1 normal heart sound, S2 normal heart sound, no murmurs, no rub, no gallops, no clicks and no JVD Cardio Narrative: A. fib with RVR GI normal to inspection, nondistended, normoactive bowel sounds, soft to palpation, non-tender and non-distended Extremity no clubbing, cyanosis or edema Skin no rashes or lesions noted, no wounds, skin turgor normal, no jaundice, no petechiae and no mottling Hair: total alopecia Neuro CN's II-XII intact bilaterally, moves all extremities and no focal motor deficits Neuro Narrative: Generalized weakness noted. Spontaneous movement of all extremities Speech: speech normal Psych Psych Narrative: RASS -2 Mood & Affect: flat affect Charges/Coding Procedures Hospitalists Procedures: 52488 Critial Care 1st Hr
--- NOTE | 2022-05-13 09:47 | PCM.PN.HOSP ---
Subjective Subjective No issues overnight, remains intubated and sedated Objective Data Objective Data Vital Signs: Vital Signs Temp Pulse Resp BP Pulse Ox O2 Del Method O2 Flow Rate 99.4 F H 121 H 14 91/50 L 94 Mechanical Ventilator 10 05/13/22 06:00 05/13/22 08:00 05/13/22 06:55 05/13/22 06:00 05/13/22 06:55 05/13/22 07:40 05/11/22 18:57 FiO2 30 05/13/22 06:55 Oxygen Flow Rate (L/min) 10 Oxygen Delivery Method Mechanical Ventilator Weight: 95 lb 14.417 oz Body Mass Index (BMI) 20.5 Intake & Output: Intake and Output for Last 24 Hours 05/12/22 05/13/22 05/14/22 03:59 03:59 03:59 Intake Total 3424.45 / 3440.85 1052.86 / 1119.26 388.48 / 388.48 Output Total 350 / 350 1400 / 1400 150 / 150 Balance 3074.45 / 3090.85 -347.14 / -280.74 238.48 / 238.48 Lab / Micro Data Result Diagrams: 05/13/22 04:15 05/13/22 04:15 Labs: Laboratory Results - last 24 hr 05/11/22 15:20: Crossmatch See Detail 05/13/22 04:15: WBC 6.8, RBC 2.13 L, Hgb 6.5 L, Hct 20.7 L, MCV 97.2, MCH 30.5, MCHC 31.4 L, RDW Std Deviation 59.0 H, RDW Coeff of Surinder 16.6 H, Plt Count 172, MPV 10.8, Immature Gran % (Auto) 0.400, Neut % (Auto) 95.8 H, Lymph % (Auto) 0.9 L, [place] % (Auto) 2.8, Eos % (Auto) 0.0, Baso % (Auto) 0.1, Absolute Neuts (auto) 6.5, Absolute Lymphs (auto) 0.06 L, Nucleated RBC % 0, Differential Comment SCANNED 05/13/22 04:15: Sodium 138, Potassium 4.1, Chloride 109 H, Carbon Dioxide 24.0, Anion Gap 5, BUN 23 H, Creatinine 0.60, Estim Creat Clear Calc 33.77, Est GFR (MDRD) Af Amer 126, Est GFR (MDRD) Non-Af 105, BUN/Creatinine Ratio 38.5 H, Glucose 171 H, Calcium 8.1 L Micro: Microbiology 05/11/22 00:00 Urine Catheter - Bailey Urine Culture - Preliminary Culture exhibits no growth. 05/11/22 19:40 Sputum, Expectorated/Coughed Gram Stain - Final 05/11/22 19:40 Sputum, Expectorated/Coughed Respiratory Culture - Preliminary Appears to be normal respiratory mariano. Further studies to follow. 05/11/22 11:30 Blood Culture (Wb) #2 - Left Wrist Blood Culture - Preliminary No growth in 48 hours. 05/11/22 11:50 Blood Culture (Wb) - Right Wrist Blood Culture - Preliminary No growth in 48 hours. 05/11/22 21:45 Urine Catheter - Bailey Legionella Antigen - Final 05/11/22 21:45 Urine Catheter - Bailey Streptococcus pneumoniae Antigen (M - Final 05/11/22 11:21 Nasal Secretion SARS-CoV-2 & FLU Antigen (Rapid) - Final Radiography Diagnostic Testing: Radiology Impression Echocardiogram 05/11/22 20:16 Interpretation Summary Moderate global left ventricular systolic dysfunction. The estimated ejection fraction is 35 %. Apical false tendon noted. Mildly dilated right ventricle. Mild global right ventricular systolic dysfunction. The left atrium is mildly enlarged. There is mild mitral annular calcification. Mild diffuse mitral valve thickening. Mild (1+) mitral valve insufficiency. Mild tricuspid valve insufficiency. Mild focal aortic valve calcification. Trivial pericardial effusion. There are no echocardiographic indications of cardiac tamponade. Right ventricular systolic pressure estimated to be 35 mmHg. Diastolic function is indeterminate. Ordering Physician: Jake Figueroa Referring Physician: Crissy Lema Performed By: Jocelyn Humphrey, RDCS, RVT Physical Exam Narrative Const General Appearance: intubated and patient mechanically ventilated HEENT normocephalic Eyes PERRL and conjunctivae normal Neck supple and no JVD Resp normal respiratory effort, no retractions and no use of accessory muscles Resp Narrative: Diminished Auscultation: rhonchi and wheezes; Negative for crackles or rales Cardio regular rate, regular rhythm, S1 normal heart sound, S2 normal heart sound and no murmurs GI soft to palpation and non-distended; Negative for hepatosplenomegaly Extremity no clubbing, cyanosis or edema Skin no rashes or lesions noted Neuro Sensorium / Orientation: sedated on vent Psych Appearance: intubated Assessment & Plan Assessment/Plan (1) Pneumonia: QUALIFIERS: Pneumonia type: due to Pneumococcus Laterality: right Lung location: middle lobe of lung Qualified Code(s): J13 - Pneumonia due to Streptococcus pneumoniae (2) Acute respiratory failure with hypoxia: PLAN: Plan 1. Acute hypoxic respiratory failure secondary to right middle lobe pneumonia/SVT/COPD/anemia ? She had to be intubated yesterday after going into SVT requiring multiple rounds of adenosine unfortunate no EKG was captured so it is unclear as to what the overriding rhythm was ? Continue with a PPI while intubated ? Appreciate pulmonology's assistance ? We will continue with Levaquin and await infectious data ? We will continue with steroids ? We will continue with metoprolol for rate control, ? Her echocardiogram demonstrates an EF of 35% with an RVSP of 35 mmHg, will resume IV Lasix to help assist ? Unsure as to the etiology of her anemia, she only received a quarter of a unit because she developed fevers and this was thought to be due to a transfusion reaction despite the fact that she has an infection leading to fevers. The anemia could be due to her cancer and chemotherapy and radiation however according to family these were completed several months ago. We will try to transfuse and see if we can get improvement in her blood pressure and 2. Small cell lung cancer with associated SIADH ? Apparently told the admitting physician that she was in remission, she does follow with oncology and per their last note she is undergoing radiation treatments. There was some question as to whether or not she had metastatic disease ? We will continue to monitor her sodium for her SIADH and be cautious with IV fluid 3. HTN/HLD/CAD status post stent/paroxysmal A. fib/chronic systolic CHF/peripheral artery disease ? We will resume blood pressure medications as able ? We will hold her Eliquis ? We will continue with her Lasix while intubated, and also digoxin to help with the rate control as well as Toprol that she was darted on while here ? Echo in December with an EF of 25 to 30% and then a recheck in January showed the EF was 60%, repeat echo now shows an EF of 35% ? She has status post aortofemoral bypass DVT: SCDs, she is normally on Eliquis at home home Charges/Coding Visit Charges Inpatient E&M: 49122 Subs Hosp L2
--- NOTE | 2022-05-13 10:18 | CASEMGMT ---
LEIGH VALENTE Discharge Planning Assessment: LEIGH VALENTE attended Multidisciplinary rounds this AM. Pt's son Himanshu attended via phone call and agreeable to follow-up call by this LEIGH VALENTE to complete assessment. Face to Face with patient for initial transition planning/care coordination assessment. Pt resting quietly and on vent. Call placed to pt's son Himanshu who was agreeable to assisting with assessment. Return call not received from pt's spouse. LEIGH VALENTE introduced self and role at [facility], Pt's son Himanshu voiced understanding.? Care providers, pharmacy,?and demographics verified. ? PCP:Crissy Lema NP in [place] Specialists: Dr. Corbett (oncology), vascular surgeon in [place] (unable to recall name of provider) and dry room operator (unable to recall name of provider) Preferred Pharmacy: [facility] Insurance: [employer] (thru spouse who still works) and MCR A/B Prescription Benefit:?Yes thru the [employer] but with limited coverage Living Will/HPOA: No: pt's son states he has been encouraging pt to complete and thinks pt started these but has not completed LNOK: spouse Bill Living Arrangements: Pt lives in a split level home with her spouse Bill. There are 2 steps to enter from the front and the garage with handrails. There are 6 steps to the upstairs bedrooms and 8 steps to the lower level where the laundry is located. Pt has been independent with ADLS including cooking and household tasks. Transportation:Pt has been driving. Pt's daughter is able to transport to appointments if not able. DME: shower chair, grab bars, hand held shower, walker, rollator and w/c available but had not been using, nebulizer but not using, home O2 at 3l/min with portability including tanks from [employer] and a portable concentrator (purchased from [employer]). SNF: Pt was at the [facility] for 2 days this summer and was sent home HH: None. Per pt's son Himanshu, palliative care services were discussed and pt's spouse declined these home visits with concern for hospice being related. Plan: TBD. Goal would be to return home with family assistance. If appropriate, home health may be considered if pt and pt's spouse are agreeable. Sarath Dangelo RN CM
[2022-05-13] MEDS: Chlorhexidine 15 ML PO ×2 (10:25→21:19)
[2022-05-13] MEDS: levoFLOXacin IV 750 MG/150 ML BAG 100 MG IV (10:46)
--- NOTE | 2022-05-13 12:29 | PCM.PN.CARD ---
Documented by User: JAY Stephens 05/13/22 15:31 Subjective Subjective No issues overnight, remains intubated and sedated Objective Data Vital Signs: Vital Signs Temp Pulse Resp BP Pulse Ox O2 Del Method O2 Flow Rate 98.8 F 80 18 97/55 L 99 Mechanical Ventilator 10 05/13/22 12:00 05/13/22 12:00 05/13/22 12:00 05/13/22 12:00 05/13/22 12:00 05/13/22 12:00 05/11/22 18:57 FiO2 35 05/13/22 12:00 Oxygen Flow Rate (L/min) 10 Oxygen Delivery Method Mechanical Ventilator Weight: 95 lb 14.417 oz Body Mass Index (BMI) 20.5 Intake & Output: Intake and Output for Last 24 Hours 05/11/22 05/12/22 05/13/22 23:59 23:59 23:59 Intake Total 3258.85 / 3375.25 893.61 / 960.01 944.52 / 944.52 Output Total 1500 / 1750 550 / 550 Balance 3258.85 / 3025.25 -606.39 / -789.99 394.52 / 394.52 Lab / Micro Data Result Diagrams: 05/13/22 04:15 05/13/22 04:15 Labs: Laboratory Results - last 24 hr 05/11/22 15:20: Crossmatch See Detail 05/13/22 04:15: WBC 6.8, RBC 2.13 L, Hgb 6.5 L, Hct 20.7 L, MCV 97.2, MCH 30.5, MCHC 31.4 L, RDW Std Deviation 59.0 H, RDW Coeff of Surinder 16.6 H, Plt Count 172, MPV 10.8, Immature Gran % (Auto) 0.400, Neut % (Auto) 95.8 H, Lymph % (Auto) 0.9 L, Potter % (Auto) 2.8, Eos % (Auto) 0.0, Baso % (Auto) 0.1, Absolute Neuts (auto) 6.5, Absolute Lymphs (auto) 0.06 L, Nucleated RBC % 0, Differential Comment SCANNED 05/13/22 04:15: Sodium 138, Potassium 4.1, Chloride 109 H, Carbon Dioxide 24.0, Anion Gap 5, BUN 23 H, Creatinine 0.60, Estim Creat Clear Calc 33.77, Est GFR (MDRD) Af Amer 126, Est GFR (MDRD) Non-Af 105, BUN/Creatinine Ratio 38.5 H, Glucose 171 H, Calcium 8.1 L Micro: Microbiology 05/11/22 00:00 Urine Catheter - Bailey Urine Culture - Preliminary Culture exhibits no growth. 05/11/22 19:40 Sputum, Expectorated/Coughed Gram Stain - Final 05/11/22 19:40 Sputum, Expectorated/Coughed Respiratory Culture - Preliminary Appears to be normal respiratory mariano. Further studies to follow. 05/11/22 11:30 Blood Culture (Wb) #2 - Left Wrist Blood Culture - Preliminary No growth in 48 hours. 05/11/22 11:50 Blood Culture (Wb) - Right Wrist Blood Culture - Preliminary No growth in 48 hours. Cardiology Labs/Tests 05/13/22 04:15: WBC 6.8, RBC 2.13 L, Hgb 6.5 L, Hct 20.7 L, MCV 97.2, MCH 30.5, MCHC 31.4 L, Plt Count 172, MPV 10.8, Immature Gran % (Auto) 0.400, Neut % (Auto) 95.8 H, Lymph % (Auto) 0.9 L, Potter % (Auto) 2.8, Eos % (Auto) 0.0, Baso % (Auto) 0.1, Absolute Neuts (auto) 6.5, Nucleated RBC % 0 05/13/22 04:15: Sodium 138, Potassium 4.1, Chloride 109 H, Carbon Dioxide 24.0, Anion Gap 5, BUN 23 H, Creatinine 0.60, Est GFR (MDRD) Af Amer 126, Est GFR (MDRD) Non-Af 105, BUN/Creatinine Ratio 38.5 H, Glucose 171 H, Calcium 8.1 L Rhythm: SR Radiography Diagnostic Testing: Radiology Impression Echocardiogram 05/11/22 20:16 Interpretation Summary Moderate global left ventricular systolic dysfunction. The estimated ejection fraction is 35 %. Apical false tendon noted. Mildly dilated right ventricle. Mild global right ventricular systolic dysfunction. The left atrium is mildly enlarged. There is mild mitral annular calcification. Mild diffuse mitral valve thickening. Mild (1+) mitral valve insufficiency. Mild tricuspid valve insufficiency. Mild focal aortic valve calcification. Trivial pericardial effusion. There are no echocardiographic indications of cardiac tamponade. Right ventricular systolic pressure estimated to be 35 mmHg. Diastolic function is indeterminate. Ordering Physician: Jake Figueroa Referring Physician: Crissy Lema Performed By: Jocelyn Humphrey, RDCS, RVT Physical Exam Const General Appearance: patient mechanically ventilated HEENT normocephalic Neck no JVD Carotids: normal carotid upstroke Resp Auscultation: rhonchi throughout (Scattered) Cardio S1 normal heart sound and S2 normal heart sound Rate: tachycardic Rhythm: regular rhythm GI normal to inspection, nondistended, normoactive bowel sounds Extremity no pedal edema Skin no rashes or lesions noted Assessment & Plan Assessment/Plan (1) SVT (supraventricular tachycardia): PLAN: The patient was diagnosed with SVT . Based upon her ECG there is a question as to whether this may have been related to an atrial tachycardia/atrial flutter with a 2-1 AV conduction. This may have been brought out by her underlying acute pulmonary event superimposed upon her cardiovascular history. She has had episodes of tachycardia. Since she is intubated she is on IV metoprolol. At the moment it would be reasonable to continue her medical management with rate control therapy and electrolyte supplementation as deemed appropriate and treating her underlying pulmonary condition. (2) Paroxysmal atrial fibrillation: PLAN: The patient has a history of PAF. She will continue medical management as deemed appropriate with respect to rate control therapy. She does not appear to be an ideal candidate for long-term oral systemic anticoagulant therapy based upon her history of anemia and thrombocytopenia thought secondary to her underlying hematology/oncology related issues. (3) CAD (coronary artery disease): PLAN: The patient has a history of CAD. The details are unknown.At the moment she will continue medical management as best as possible. (4) S/P PTCA (percutaneous transluminal coronary angioplasty): PLAN: The patient is reported as having a history of previous PCI at an outside institution. Again the details are unknown. She will continue medical therapy. (5) Cardiomyopathy: PLAN: The patient has a history of a previous transient cardiomyopathy. It is unclear as to whether this was related to a tachycardiac related cardiomyopathy versus related to a noncardiovascular condition such as her underlying pulmonary condition/hypoxemia or related to any concerns of previous chemotherapy.Echocardiogram demonstrated a decreased EF. For now will continue with medical management (6) AAA (abdominal aortic aneurysm): PLAN: The patient has a history of a AAA. Apparently this is undergone repair in the past based upon her past medical history. (7) Pneumonia: QUALIFIERS: Laterality: right Lung location: middle lobe of lung Pneumonia type: due to Pneumococcus Qualified Code(s): J13 - Pneumonia due to Streptococcus pneumoniae PLAN: The patient is being treated for underlying pneumonia superimposed upon her history of lung carcinoma. She continues in the ICU with mechanical intubation/ventilation and medical management. (8) History of lung cancer: PLAN: The patient has a history of lung carcinoma. She will continue evaluation care per hematology and oncology. (9) Anemia: QUALIFIERS: Anemia type: unspecified type Qualified Code(s): D64.9 - Anemia, unspecified PLAN: The patient remains with anemia. She also has a previous history of thrombocytopenia. This does impact her ability with respect to medical therapy and additional studies-especially invasive-if needed. Charges/Coding Visit Charges Inpatient E&M: 50420 Subs Hosp L2 Documented by User: Dr. Dalton Manning MD 05/13/22 17:47 Lab / Micro Data Result Diagrams: 05/13/22 04:15 05/13/22 04:15 Assessment & Plan Assessment/Plan (1) SVT (supraventricular tachycardia): (2) Paroxysmal atrial fibrillation: (3) CAD (coronary artery disease): (4) S/P PTCA (percutaneous transluminal coronary angioplasty): (5) Cardiomyopathy: (6) AAA (abdominal aortic aneurysm): (7) Pneumonia: QUALIFIERS: Laterality: right Lung location: middle lobe of lung Pneumonia type: due to Pneumococcus Qualified Code(s): J13 - Pneumonia due to Streptococcus pneumoniae (8) History of lung cancer: (9) Anemia: QUALIFIERS: Anemia type: unspecified type Qualified Code(s): D64.9 - Anemia, unspecified PLAN: Plan I independently reviewed the medical records of this patient including the laboratory monitor imaging studies as well as the current cardiac medication. Patient had history of cardiomyopathy, CAD with a prior PCI and stenting. History of supraventricular tachycardia and paroxysmal atrial fibrillation. She had severe anemia From cardiac standpoint recommendation would be to continue medical therapy. From cardiac standpoint we will be available if further cardiac need arise
[2022-05-13] MEDS: Furosemide 20 MG/2 ML VIAL IV (12:56)
[2022-05-13] MEDS: Vital AF 1.2 Cal Liquid 1,000 ML 45 ML GT (20:00)
[2022-05-13] MEDS: Atorvastatin Calcium 10 MG Tablet GT (21:18)
--- NOTE | 2022-05-13 21:28 | CPS ---
PEP not done due to patient intubation, will resume when extubated
[2022-05-14] VITALS (51 sets, daily range): BP systolic 79–211; BP diastolic 47–152; PULSE 78–176; RESP 12–31; TEMP 36.8–37.9; O2SAT 91–100
--- NOTE | 2022-05-14 00:10 | NURSING ---
During bath, pt became extremely anxious and panicked to sit up to try and breathe better;gripping staffs' hands on either side of bed and using all accessory muscles. Fentanyl and Precedex drips increased as per orders to help relax pt; HR 161 RR38.
[2022-05-14] MEDS: Metoprolol Tartrate 5 MG/5 ML Vial IV ×2 (00:13→06:05)
[2022-05-14] MEDS: Ipratropium/Albuterol Sulfate 3 ML AMPUL.NEB INHALATION ×4 (01:15→19:10)
[2022-05-14] MEDS: CHLORHEXIDINE GLUC 2% CLOTH 1 EACH TOWELETTE TOPICAL (02:35)
[2022-05-14] MEDS: guaiFENesin 10 ML UDC (200MG/10ML) GT ×2 (02:35→06:04)
[2022-05-14 04:06] LABS: Absolute Neutrophil Count 7.8 X10^3/uL (2.0-7.7); Basophil# 0.01 X10^3/uL; Basophil% 0.1 % (0-1); Hematocrit 21.1 % (37-47); Hemoglobin 6.4 g/dL (12.0-15.0); Lymphocyte % 1.2 % (19-41); Mean Corp Hgb Conc 30.3 g/dL (32-36); Mean Corpuscular Hgb 29.9 pg (27.0-32.0); Mean Corpuscular Volume 98.6 fL (81-99); Mean Platelet Vol. 10.8 fl (6.2-12.0); Monocyte% 2.4 % (0-10); NRBC Flagged by Analyzer 0.2 % (0-5); Neutrophil # 7.84 X10^3/uL (2.7-7.7); Neutrophil % 95.7 % (47-70); POSITIVE DIFFERENTIAL YES; Platelet Count 162 K/mm3 (150-450); RBC Distribution Width CV 15.9 % (11.6-14.6); Red Blood Count 2.14 M/mm3 (4.2-5.4); White Blood Count 8.2 K/mm3 (4.4-11.0)
[2022-05-14 04:18] LABS: Differential Indicated SCAN CRITERIA MET
[2022-05-14 04:23] LABS: Anion Gap 6 (5-15); BUN 29 mg/dL (7-18); BUN/Creat Ratio 49.4 RATIO (10-20); Calcium,Total 8.4 mg/dL (8.5-10.1); Chloride 110 mmol/L (98-107); Creatinine, Serum 0.59 mg/dL (0.55-1.02); EST Glomerular Filtration Rate 107 mL/min (>60); Est Glom Filt Rate - Afr Amer 129 mL/min (>60); Estimated Creatinine Clearance 34.41 ml/min; Glucose 227 mg/dL (74-106); Magnesium 2.1 mg/dL (1.6-2.6); Phosphorus 1.9 mg/dL (2.5-4.9); Potassium 4.2 mmol/L (3.5-5.1); Sodium Level 141 mmol/L (136-145)
[2022-05-14] MEDS: 0.9% Saline Lock 10 ML Syringe IV ×2 (06:05→13:29)
[2022-05-14] MEDS: Sodium Chloride 1 GM Tablet PO ×3 (06:06→21:09)
--- NOTE | 2022-05-14 06:21 | PCM.PN.INT ---
Assessment & Plan Assessment/Plan (1) Acute respiratory failure with hypoxia: (2) Pneumonia: QUALIFIERS: Laterality: right Lung location: middle lobe of lung Pneumonia type: due to Pneumococcus Qualified Code(s): J13 - Pneumonia due to Streptococcus pneumoniae (3) History of lung cancer: (4) Severe protein-calorie malnutrition: PLAN: Plan RECOMMENDATIONS: 1. Proceed with a trial of extubation this morning. 2. Once extubated, wean supplemental oxygen as tolerated. 3. Perform bedside swallow evaluation and advance diet accordingly. 4. Continue empiric antimicrobials. 5. Continue scheduled bronchodilators and IV steroids. 6. Transfuse 1 unit packed red blood cell today. 7. Continue PPI therapy. 8. Continue scheduled daily IV diuretic therapy. IMPRESSIONS: 1.??Acute hypoxic respiratory failure in the setting of COPD and history of small cell lung cancer The patient presented with an acute COPD exacerbation which appears to be secondary to a right upper lobe infiltrate. The patient has slowly improved from a respiratory perspective. She remains on appropriate antimicrobials, scheduled bronchodilators and steroids. She has passed her spontaneous breathing trial this morning and will therefore be extubated. Once extubated, supplemental oxygen can be weaned to maintain saturations at or above 90%. Bedside swallow evaluation can be completed and diet advanced accordingly. Continue gentle diuresis as tolerated by hemodynamics and renal function. 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 An additional unit of blood will be transfused today. The patient will be continued on appropriate PPI therapy. There are no overt signs of blood loss. If hemoglobin continues to trend down, recommend gastroenterology consultation. 3.??Cardiomyopathy/paroxysmal A. fib/SVT Continue medical management per cardiology recommendations. 4.??Chronic pain syndrome/osteoporosis/GERD with history of GI bleed/CAD/debility Complicates care, management, recovery and prognosis.? Continue supportive measures as noted above. TIME: 33 minutes of critical care time, independent of procedures, was spent addressing the patient's acute hypoxemic respiratory failure, COPD with exacerbation, anemia, cardiomyopathy, review of all data and collaboration with the care team. Subjective Subjective The patient was seen and examined at the bedside this morning. Events from the last 24 hours have been reviewed. The patient is currently afebrile, hemodynamically stable and maintaining appropriate oxygen saturations on assist control mode mechanical ventilation with an FiO2 requirement of 35%. The patient remains sedated on Precedex and fentanyl. She continues to have thick, anaya secretions. Hemoglobin remains low this morning at 6.4 g/dL. The patient is currently documented to be overall net +4.2 L for the hospitalization. The patient has done relatively well this morning on her spontaneous breathing trial. She is alert and able to follow commands appropriately. Objective Data Objective Data The patient's most recent lab work, culture data and imaging studies have all been personally reviewed. Surface echocardiogram demonstrated normal LV size with moderate global LV systolic dysfunction and an ejection fraction of 35%. Vital Signs: Vital Signs Temp Pulse Resp BP Pulse Ox O2 Del Method O2 Flow Rate 98.2 F 84 19 H 118/74 100 Mechanical Ventilator 10 05/14/22 06:00 05/14/22 06:05 05/14/22 06:00 05/14/22 06:05 05/14/22 06:00 05/14/22 06:00 05/11/22 18:57 FiO2 35 05/14/22 06:00 Oxygen Flow Rate (L/min) 10 Oxygen Delivery Method Mechanical Ventilator Weight: 95 lb 14.417 oz Body Mass Index (BMI) 20.5 Intake & Output: Intake and Output for Last 24 Hours 05/12/22 05/13/22 05/14/22 23:59 23:59 23:59 Intake Total 893.61 / 960.01 2809.00 / 2870.48 621.82 / 621.82 Output Total 1500 / 1750 1500 / 1875 550 / 550 Balance -606.39 / -789.99 1309.00 / 995.48 71.82 / 71.82 Lab / Micro Data Attestation: I reviewed the patient's lab results. Result Diagrams: 05/14/22 03:55 05/14/22 03:55 Labs: Laboratory Results - last 24 hr 05/11/22 15:20: Crossmatch See Detail 05/14/22 03:55: WBC 8.2, RBC 2.14 L, Hgb 6.4 L, Hct 21.1 L, MCV 98.6, MCH 29.9, MCHC 30.3 L, RDW Std Deviation 57.0 H, RDW Coeff of Surinder 15.9 H, Plt Count 162, MPV 10.8, Immature Gran % (Auto) 0.600, Neut % (Auto) 95.7 H, Lymph % (Auto) 1.2 L, [place] % (Auto) 2.4, Eos % (Auto) 0.0, Baso % (Auto) 0.1, Absolute Neuts (auto) 7.8 H, Absolute Lymphs (auto) 0.10 L, Nucleated RBC % 0.2 05/14/22 03:55: Sodium 141, Potassium 4.2, Chloride 110 H, Carbon Dioxide 25.0, Anion Gap 6, BUN 29 H, Creatinine 0.59, Estim Creat Clear Calc 34.41, Est GFR (MDRD) Af Amer 129, Est GFR (MDRD) Non-Af 107, BUN/Creatinine Ratio 49.4 H, Glucose 227 H, Calcium 8.4 L, Phosphorus 1.9 L, Magnesium 2.1 Micro: Microbiology 05/11/22 00:00 Urine Catheter - Bailey Urine Culture - Preliminary Culture exhibits no growth. 05/11/22 19:40 Sputum, Expectorated/Coughed Gram Stain - Final 05/11/22 19:40 Sputum, Expectorated/Coughed Respiratory Culture - Preliminary Appears to be normal respiratory mariano. Further studies to follow. 05/11/22 11:30 Blood Culture (Wb) #2 - Left Wrist Blood Culture - Preliminary No growth in 48 hours. 05/11/22 11:50 Blood Culture (Wb) - Right Wrist Blood Culture - Preliminary No growth in 48 hours. 05/11/22 21:45 Urine Catheter - Bailey Legionella Antigen - Final 05/11/22 21:45 Urine Catheter - Bailey Streptococcus pneumoniae Antigen (M - Final 05/11/22 11:21 Nasal Secretion SARS-CoV-2 & FLU Antigen (Rapid) - Final Physical Exam Const alert and no apparent distress General Appearance: cooperative, intubated and patient mechanically ventilated HEENT normocephalic and head/scalp atraumatic Mouth: endotracheal tube in place and OG tube in place Eyes PERRL, EOMs intact bilaterally and conjunctivae normal Neck supple General: trachea midline Chest Chest Narrative: Increased AP diameter Resp normal respiratory effort Auscultation: diminished lung sounds Cardio S1 normal heart sound and S2 normal heart sound Rate: tachycardic GI normal to inspection, nondistended, normoactive bowel sounds Extremity no clubbing, cyanosis or edema Skin no rashes or lesions noted Neuro moves all extremities and no focal motor deficits Psych Mood & Affect: anxious Charges/Coding Procedures Hospitalists Procedures: 42840 Critial Care 1st Hr
--- NOTE | 2022-05-14 09:46 | PCM.PN.HOSP ---
Subjective Subjective Extubated this morning, maintaining her oxygen saturations on 3 L nasal cannula. Still anemic Objective Data Objective Data Vital Signs: Vital Signs Temp Pulse Resp BP Pulse Ox O2 Del Method O2 Flow Rate 98.6 F 102 H 24 H 117/75 96 Nasal Cannula 3 05/14/22 09:29 05/14/22 09:29 05/14/22 09:29 05/14/22 09:29 05/14/22 09:29 05/14/22 09:29 05/14/22 09:29 FiO2 35 05/14/22 06:00 Oxygen Flow Rate (L/min) 3 Oxygen Delivery Method Nasal Cannula Weight: 95 lb 14.417 oz Body Mass Index (BMI) 20.5 Intake & Output: Intake and Output for Last 24 Hours 05/13/22 05/14/22 05/15/22 03:59 03:59 03:59 Intake Total 1052.86 / 1119.26 2643.63 / 3074.93 629.65 / 629.65 Output Total 1400 / 1400 1625 / 1625 175 / 175 Balance -347.14 / -280.74 1018.63 / 1449.93 454.65 / 454.65 Lab / Micro Data Result Diagrams: 05/14/22 03:55 05/14/22 03:55 Labs: Laboratory Results - last 24 hr 05/11/22 15:20: Crossmatch See Detail 05/11/22 15:20: Crossmatch See Detail 05/14/22 03:55: WBC 8.2, RBC 2.14 L, Hgb 6.4 L, Hct 21.1 L, MCV 98.6, MCH 29.9, MCHC 30.3 L, RDW Std Deviation 57.0 H, RDW Coeff of Surinder 15.9 H, Plt Count 162, MPV 10.8, Immature Gran % (Auto) 0.600, Neut % (Auto) 95.7 H, Lymph % (Auto) 1.2 L, [place] % (Auto) 2.4, Eos % (Auto) 0.0, Baso % (Auto) 0.1, Absolute Neuts (auto) 7.8 H, Absolute Lymphs (auto) 0.10 L, Nucleated RBC % 0.2 05/14/22 03:55: Sodium 141, Potassium 4.2, Chloride 110 H, Carbon Dioxide 25.0, Anion Gap 6, BUN 29 H, Creatinine 0.59, Estim Creat Clear Calc 34.41, Est GFR (MDRD) Af Amer 129, Est GFR (MDRD) Non-Af 107, BUN/Creatinine Ratio 49.4 H, Glucose 227 H, Calcium 8.4 L, Phosphorus 1.9 L, Magnesium 2.1 Micro: Microbiology 05/11/22 00:00 Urine Catheter - Bailey Urine Culture - Final Culture exhibits no growth. 05/11/22 19:40 Sputum, Expectorated/Coughed Gram Stain - Final 05/11/22 19:40 Sputum, Expectorated/Coughed Respiratory Culture - Final 05/11/22 11:30 Blood Culture (Wb) #2 - Left Wrist Blood Culture - Preliminary No growth in 48 hours. 05/11/22 11:50 Blood Culture (Wb) - Right Wrist Blood Culture - Preliminary No growth in 48 hours. 05/11/22 21:45 Urine Catheter - Bailey Legionella Antigen - Final 05/11/22 21:45 Urine Catheter - Bailey Streptococcus pneumoniae Antigen (M - Final 05/11/22 11:21 Nasal Secretion SARS-CoV-2 & FLU Antigen (Rapid) - Final Physical Exam Narrative General: Alert, Cooperative, No apparent distress HEENT: Atraumatic, PERRLA, EOMI, Normocephalic Oral: Moist Mucosa Neck: Supple, No JVD Lungs: Diminished, Normal air movement, No rhonchi, No wheeze, No rales Cardiovascular: Tachycardic, Regular Rhythm, Normal S1, Normal S2, No murmurs Abdomen: Soft, Non Tender, Non-Distended, No Hepato-splenomegaly Extremities: No edema, Capillary Refill Less than 3 Seconds Skin: No rashes, No breakdown Musculoskeletal: No Tenderness to Palpation of Joints or Extremities Neurological: Cranial nerves II-XII grossly intact, Motor Exam 5/5 strength throughout, Sensory exam intact to light touch and pain Psych/Mental Status: Anxious Assessment & Plan Assessment/Plan (1) Pneumonia: QUALIFIERS: Pneumonia type: due to Pneumococcus Laterality: right Lung location: middle lobe of lung Qualified Code(s): J13 - Pneumonia due to Streptococcus pneumoniae (2) Acute respiratory failure with hypoxia: PLAN: Plan 1. Acute hypoxic respiratory failure secondary to right middle lobe pneumonia/SVT/COPD/anemia ? She had to be intubated yesterday after going into SVT requiring multiple rounds of adenosine unfortunate no EKG was captured so it is unclear as to what the overriding rhythm was ? Continue with a PPI, as she is a little bit anemic requiring transfusion ? Appreciate pulmonology's assistance ? We will continue with Levaquin and await infectious data ? We will continue with steroids ? We will continue with metoprolol for rate control, as well as digoxin ? Her echocardiogram demonstrates an EF of 35% with an RVSP of 35 mmHg, will resume IV Lasix ? Unsure as to the etiology of her anemia, she only received a quarter of a unit because she developed fevers and this was thought to be due to a transfusion reaction despite the fact that she has an infection leading to fevers. The anemia could be due to her cancer and chemotherapy and radiation however according to family these were completed several months ago. We will try to transfuse and see if we can get improvement in her blood pressure. If she remains anemic may need to proceed with a GI consult 2. Small cell lung cancer with associated SIADH ? Apparently told the admitting physician that she was in remission, she does follow with oncology and per their last note she is undergoing radiation treatments. There was some question as to whether or not she had metastatic disease ? We will continue to monitor her sodium for her SIADH and be cautious with IV fluid 3. HTN/HLD/CAD status post stent/paroxysmal A. fib/chronic systolic CHF/peripheral artery disease ? We will resume blood pressure medications as able ? We will hold her Eliquis ? We will continue with her Lasix and also digoxin to help with the rate control as well as Toprol that she was darted on while here ? Echo in December with an EF of 25 to 30% and then a recheck in January showed the EF was 60%, repeat echo now shows an EF of 35% ? She has status post aortofemoral bypass DVT: SCDs Charges/Coding Visit Charges Inpatient E&M: 53087 Subs Hosp L2
[2022-05-14] MEDS: Potassium Chloride Oral Tablet 20 MEQ PO ×2 (10:42→17:50)
[2022-05-14] MEDS: morphine SR 15 MG Tablet PO (10:42)
[2022-05-14] MEDS: Digoxin 250 MCG Tablet PO (10:43)
[2022-05-14] MEDS: Magnesium Chloride 64 MG Delay Rel.Tablet 128 MG PO (10:44)
[2022-05-14] MEDS: Lisinopril 2.5 MG Tablet PO (10:44)
[2022-05-14] MEDS: Loratadine 10 MG Tablet PO (10:45)
[2022-05-14] MEDS: oxyCODONE 5 MG Tablet PO (12:29)
[2022-05-14] MEDS: Furosemide 20 MG/2 ML VIAL IV (12:29)
[2022-05-14] MEDS: Metoprolol Tartrate 25 MG Tablet PO ×2 (13:29→21:10)
[2022-05-14] MEDS: oxyCODONE 5 MG Tablet 10 MG PO (13:29)
[2022-05-14 14:57] LABS: Platelet Estimate ADEQUATE (ADEQ); Red Cell Morphology NORM C+C NORMAL (NORM C&C)
[2022-05-14] MEDS: Nitroglycerin Infusion 250 ML 6 MG CONT INF (18:31)
[2022-05-14] MEDS: Furosemide 100 MG/10 ML Vial 60 MG IV (18:32)
--- NOTE | 2022-05-14 18:35 | RAD_ITS ---
STUDY: X-RAY CHEST REASON FOR EXAM: Female, 72 years old. sob TECHNIQUE: Single AP portable view of the chest. COMPARISON: 05/11/2022 FINDINGS: Increased airspace disease in the right upper lobe compared to the previous examination with bilateral diffuse airspace disease likely superimposed on pulmonary fibrosis with areas of hyperintensity inflation and distortion of parenchyma in the left upper lobe. Moderate emphysema. Diaphragmatic contours bilaterally less well-defined with flattening and possible tiny effusions. Normal size heart. Normal mediastinum and valeriy. Normal visualized pulmonary arteries. There is atherosclerotic calcification of the aortic arch with tortuosity. Multiple level thoracic and lumbar vertebroplasty. Osteopenic bone. There is degenerative osteoarthritis of the bilateral shoulders. There is no demonstrated abnormality of the visualized soft tissue structures of the upper abdomen. RAD/Chest 1 View (Portable) IMPRESSION: Moderate emphysema with bilateral airspace disease more focal in the right upper lobe, however less pronounced compared to the most recent examination. Distortion of parenchyma possible underlying scar formation, other etiology not excluded. Possible atelectasis or trace fluid in the lung bases. Atherosclerosis, osteoporosis, multilevel vertebroplasty as on previous exam. Electronically Signed: Vivienne Geller MD at 19:39 EST Reading Location ID and State: , Service support ,
[2022-05-14 18:40] LABS: Base Excess -8 mmol/L (-2 to +2); Bicarbonate 20.8 mmol/L (22-26); Blood Gas Specimen Type ART; Mode avaps; O2 Delivery Device BiPAP; PEEP 10; PO2 160 mmHG (75-100); RR 14; SO2 99 % (95-99); Total Carbon Dioxide 23 mmol/L; Vt 450; pCO2 63.6 mmHg (35-45); pH 7.12 (7.35-7.45)
--- NOTE | 2022-05-14 18:40 | NURSING ---
RNs and RTs at bedside w/. Pt in respiratory distress,using all accessory muscles, attempting to recover on BiPAP. Pt previously given Lasix IVP for pulmonary edema and Ntg drip started for HTN. 1844 20mg Etomidate given 1845 4mg versed, 7.5ETT placed and secured at 23cm, positive color change noted to CO2 detector, samina breath sounds;PEEP 7, FiO2 60% 1850 OGT placed and secured to ETT 1854 16fr coretemp F/C placed
[2022-05-14] MEDS: LORazepam 2 MG/ML Syringe 0.5 MG IV (18:41)
[2022-05-14] MEDS: Etomidate 20 MG/10 ML Vial IV (18:45)
[2022-05-14] MEDS: Midazolam 2 MG/2 ML Syringe 4 MG IV (18:46)
[2022-05-14 18:50] LABS: FI02 75
[2022-05-14] MEDS: Propofol 10MG/Ml 1,000 MG/100 ML Bottle 2.6 MG CONT INF (18:50)
--- NOTE | 2022-05-14 18:52 | PRO.PCM_ITS ---
Procedure Report Date of Procedure: 05/14/22 Endotracheal intubation Patient is a 72-year-old lady who was extubated earlier on in the day went into flash pulmonary edema. Rapid response was called. Patient was placed on noninvasive ventilation BiPAP and given Lasix. Patient was also found to have markedly elevated blood pressure with systolic blood pressure of 211. Despite initial resuscitative effort patient respiratory status continued to decline. Decision was made to intubate patient subsequently. Patient was premedicated w ith 4 mg of Versed and 20 mg of etomidate. He was intubated using the glide scope with 7.5 size ET tube. Tube placement verified with auscultation as well as colorimetric change. Initial vent orders placed. Repeat checks x-ray obtained. Procedures Hospitalists Procedures: 59907 Insert Emergency Airway
--- NOTE | 2022-05-14 18:55 | RAD_ITS ---
STUDY: X-RAY CHEST REASON FOR EXAM: Female, 72 years old. ETT placement TECHNIQUE: Single AP portable view of the chest. COMPARISON: 05/14/2022 1832 H FINDINGS: Interval placement of endotracheal tube with catheter tip 2.9 cm superior to the alyson and enteric tube, distal sidehole over the gastric fundus, tip not included on the inferior image. There are superimposed monitor leads. There is no demonstrated pneumothorax. Stable airspace disease in the right upper lobe with bilateral diffuse airspace disease and distortion of parenchyma in the left upper lobe, underlying emphysema, osteoporosis, multilevel vertebral plasties, arterial sclerosis. They will flattening of diaphragms with better delineated on current exam. No effusions detected. Normal size heart. Normal mediastinum and valeriy. Normal visualized pulmonary arteries. Normal visualized aortic arch and descending thoracic aorta. There is demineralization of the osseous structures. There is degenerative osteoarthritis of the bilateral shoulders. There is no demonstrated abnormality of the visualized soft tissue structures of the upper abdomen. RAD/Chest 1 View (Portable) IMPRESSION: Lines in good position. Diffuse airspace disease, more focal in the right upper lobe with distortion of parenchyma/possibly scarring left upper lobe, superimposed on the emphysema. Follow-up examination to resolution recommended. Other nonacute findings as outlined above. Electronically Signed: Vivienne Geller MD at 20:01 EST Reading Location ID and State: , Service support ,
[2022-05-14] MEDS: Furosemide 40 MG/4 ML Vial IV (19:08)
--- NOTE | 2022-05-14 19:25 | NURSING ---
Ezio Lua, pt's spouse, called and given updates on intubation by LEIGH Arreguin. Telephone consent obtained for PICC line placement.
--- NOTE | 2022-05-14 19:46 | NURSING ---
[facility] notified of order placed for PICC line. Per dispatch, the nurses that are on this wknd are not credentialed to do procedures at [facility] and information will be broadcast in attempt to find a nurse that can come to [facility].
--- NOTE | 2022-05-14 20:20 | CPS ---
settings decreased per Dr Jin
[2022-05-14 21:06] LABS: O2 Delivery Device ET Tube; PEEP 5; RR 12; SITE L Radial; VBG BASE EXCESS -4 mmol/L (-1.0-3.5); VBG Bicarbonate 21 mmol/L (22-26); VBG PO2 39 mmHg (25-40); VBG SO2 71 % (50-70); VBG TCO2 23 mmol/L (23-33); VBG pCO2 38.9 mmHg (41-51); VBG pH 7.35 (7.32-7.42)
[2022-05-14] MEDS: Vital AF 1.2 Cal Liquid 1,000 ML 45 ML GT (21:06)
[2022-05-14] MEDS: Chlorhexidine 15 ML PO (21:08)
[2022-05-14] MEDS: Atorvastatin Calcium 10 MG Tablet PO (21:09)
[2022-05-14 21:47] LABS: Blood Gas Specimen Type ART
[2022-05-15] VITALS (38 sets, daily range): BP systolic 84–128; BP diastolic 54–69; PULSE 60–120; RESP 12–27; TEMP 36.6–38.1; O2SAT 92–100
[2022-05-15] MEDS: Ipratropium/Albuterol Sulfate 3 ML AMPUL.NEB INHALATION ×6 (02:15→22:45)
--- NOTE | 2022-05-15 04:17 | PN.CC_ITS ---
Assessment & Plan Assessment/Plan (1) Acute respiratory failure with hypoxia: (2) Pneumonia: QUALIFIERS: Laterality: right Lung location: middle lobe of lung Pneumonia type: due to Pneumococcus Qualified Code(s): J13 - Pneumonia due to Streptococcus pneumoniae (3) History of lung cancer: (4) Severe protein-calorie malnutrition: PLAN: Plan RECOMMENDATIONS: 1. Continue assist-control mode mechanical ventilation. Wean FiO2 and PEEP to maintain oxygen saturations at or above 90%. 2. Continue to monitor H&H daily. Transfuse if hemoglobin drops below 7 g/dL. 3. Consider GI consultation. 4. Continue antimicrobials as ordered. 5. Continue Precedex and fentanyl for sedation. 6. Continue tube feeds as tolerated. 7. Continue scheduled bronchodilators and IV steroids. 8. Continue PPI therapy. 9. Continue scheduled daily IV diuretic therapy. IMPRESSIONS: 1.??Acute hypoxic respiratory failure in the setting of COPD and history of small cell lung cancer The patient presented with an acute COPD exacerbation which appears to be secondary to a right upper lobe infiltrate. The patient has slowly improved from a respiratory perspective. She remains on appropriate antimicrobials, scheduled bronchodilators and steroids. Although the patient was able to be extubated on 05/14, she decompensated from a respiratory perspective approximately 12 hours later and had to be reintubated. Clinical concern that the patient's underlying anemia and anxiety may have contributed to her d ecompensation. For now, she will be maintained on assist control mode mechanical ventilation. FiO2 and PEEP will be weaned to maintain oxygen saturations at or above 90%. We will plan to continue gentle diuresis as tolerated by hemodynamics and renal function. Tube feeds will be continued as tolerated. 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 However, the patient has received transfusion of blood products. I would recommend monitoring H&H and transfuse to maintain a hemoglobin at or above 7 g/dL. The patient will be continued on appropriate PPI therapy. There are no overt signs of blood loss. If the patient remains anemic, I would recommend consultation to gastroenterology. 3.??Cardiomyopathy/paroxysmal A. fib/SVT Continue medical management per cardiology recommendations. 4.??Chronic pain syndrome/osteoporosis/GERD with history of GI bleed/CAD /debility Complicates care, management, recovery and prognosis.? Continue supportive teddy sures as noted above, including tube feeds as tolerated. TIME: 32 minutes of critical care time, independent of procedures, was spent addressing the patient's acute hypoxemic respiratory failure, COPD with exacerbation, anemia, cardiomyopathy, review of all data and collaboration with the care team. Subjective Subjective The patient was seen and examined at the bedside this morning. Events from the last 24 hours have been reviewed. Yesterday evening, the patient developed acute respiratory distress, which ultimately required reintubation. She is currently documented to be overall net +3.6 L for the hospitalization. The patient remains on stable vent settings with assist control and an FiO2 of 40% and PEEP of 5. Objective Data Objective Data The patient's most recent lab work, culture data and imaging studies have all been personally reviewed. Surface echocardiogram demonstrated normal LV size with moderate global LV systolic dysfunction and an ejection fraction of 35%. Vital Signs: Vital Signs Temp Pulse Resp BP Pulse Ox O2 Del Method O2 Flow Rate 97.9 F 69 19 H 103/63 100 Mechanical Ventilator 3 05/15/22 03:00 05/15/22 03:00 05/15/22 03:00 05/15/22 03:00 05/15/22 03:00 05/15/22 03:00 05/14/22 18:00 FiO2 40 05/15/22 03:00 Oxygen Flow Rate (L/min) 3 Oxygen Delivery Method Mechanical Ventilator Weight: 94 lb 12.78 oz Body Mass Index (BMI) 20.5 Intake & Output: Intake and Output for Last 24 Hours 05/13/22 05/14/22 05/15/22 23:59 23:59 23:59 Intake Total 2809.00 / 2870.48 2388.17 / 2456.12 128.28 / 128.28 Output Total 1500 / 1875 1400 / 2850 1450 / 1450 Balance 1309.00 / 995.48 988.17 / -393.88 -1321.72 / -1321.72 Lab / Micro Data Attestation: I reviewed the patient's lab results. Result Diagrams: 05/16/22 04:00 05/16/22 04:00 Labs: Laboratory Results - last 24 hr 05/11/22 15:20: Crossmatch See Detail 05/14/22 03:55: WBC 8.2, RBC 2.14 L, Hgb 6.4 L, Hct 21.1 L, MCV 98.6, MCH 29.9, MCHC 30.3 L, RDW Std Deviation 57.0 H, RDW Coeff of Surinder 15.9 H, Plt Count 162, MPV 10.8, Immature Gran % (Auto) 0.600, Neut % (Auto) 95.7 H, Lymph % (Auto) 1.2 L, [place] % (Auto) 2.4, Eos % (Auto) 0.0, Baso % (Auto) 0.1, Absolute Neuts (auto) 7.8 H, Absolute Lymphs (auto) 0.10 L, Nucleated RBC % 0.2, Platelet Estimate ADEQUATE, RBC Morphology NORM C+C 05/14/22 03:55: Sodium 141, Potassium 4.2, Chloride 110 H, Carbon Dioxide 25.0, Anion Gap 6, BUN 29 H, Creatinine 0.59, Estim Creat Clear Calc 34.41, Est GFR (MDRD) Af Amer 129, Est GFR (MDRD) Non-Af 107, BUN/Creatinine Ratio 49.4 H, Glucose 227 H, Calcium 8.4 L, Phosphorus 1.9 L, Magnesium 2.1 Micro: Microbiology 05/11/22 00:00 Urine Catheter - Bailey Urine Culture - Final Culture exhibits no growth. 05/11/22 19:40 Sputum, Expectorated/Coughed Gram Stain - Final 05/11/22 19:40 Sputum, Expectorated/Coughed Respiratory Culture - Final 05/11/22 11:30 Blood Culture (Wb) #2 - Left Wrist Blood Culture - Preliminary No growth in 48 hours. 05/11/22 11:50 Blood Culture (Wb) - Right Wrist Blood Culture - Preliminary No growth in 48 hours. 05/11/22 21:45 Urine Catheter - Bailey Legionella Antigen - Final 05/11/22 21:45 Urine Catheter - Bailey Streptococcus pneumoniae Antigen (M - Final 05/11/22 11:21 Nasal Secretion SARS-CoV-2 & FLU Antigen (Rapid) - Final ABG Data ABG results: ABG 05/14/22 05/14/22 18:35 20:57 Specimen Type ART ART Sample Site L Radial pH 7.12 L* Bicarbonate Actual 20.8 L Total CO2 23 Base Excess -8 L O2 Saturation 99 O2 % 75 ABG pCO2 63.6 H ABG pO2 160 H VBG pH 7.35 VBG pO2 39 VBG HCO3 21 L VBG Total CO2 23 VBG O2 Sat (Calc) 71 H VBG Base Excess -4 L POC Mix VBG pCO2 Pt Tmp 38.9 L Respiration Rate 14 12 O2 Delivery Device BiPAP ET Tube Vent Mode avaps Tidal Volume 450 POC PEEP 10 5 Crit Call To/Read Back Yes Radiography Diagnostic Testing: Radiology Impression Chest X-Ray 05/14/22 18:35 IMPRESSION: Moderate emphysema with bilateral airspace disease more focal in the right upper lobe, however less pronounced compared to the most recent examination. Distortion of parenchyma possible underlying scar formation, other etiology not excluded. Possible atelectasis or trace fluid in the lung bases. Atherosclerosis, osteoporosis, multilevel vertebroplasty as on previous exam. Electronically Signed: Vivienne Geller MD at 19:39 EST Reading Location ID and State: , Service support , Chest X-Ray 05/14/22 18:55 IMPRESSION: Lines in good position. Diffuse airspace disease, more focal in the right upper lobe with distortion of parenchyma/possibly scarring left upper lobe, superimposed on the emphysema. Follow-up examination to resolution recommended. Other nonacute findings as outlined above. Electronically Signed: Vivienne Geller MD at 20:01 EST Reading Location ID and State: , Service support , Physical Exam Const no apparent distress General Appearance: intubated and patient mechanically ventilated Nutritional Appearance: thin HEENT normocephalic and head/scalp atraumatic Mouth: endotracheal tube in place and OG tube in place Eyes PERRL, EOMs intact bilaterally and conjunctivae normal Neck supple General: trachea midline Chest Chest Narrative: Increased AP diameter Resp Auscultation: diminished lung sounds; Negative for rales, rhonchi or wheezes Cardio regular rate, regular rhythm, S1 normal heart sound and S2 normal heart sound GI normal to inspection, nondistended, normoactive bowel sounds Extremity no clubbing, cyanosis or edema Skin no rashes or lesions noted Neuro Sensorium / Orientation: sedated on vent Charges/Coding Procedures Hospitalists Procedures: [id number] [facility]
[2022-05-15] MEDS: 0.9% Saline Lock 10 ML Syringe IV ×3 (05:20→13:19)
[2022-05-15] MEDS: Sodium Chloride 1 GM Tablet PO ×3 (05:20→21:18)
[2022-05-15] MEDS: CHLORHEXIDINE GLUC 2% CLOTH 1 EACH TOWELETTE TOPICAL (05:21)
[2022-05-15 05:33] LABS: Anion Gap 7 (5-15); BUN 32 mg/dL (7-18); BUN/Creat Ratio 47.4 RATIO (10-20); Calcium,Total 8.4 mg/dL (8.5-10.1); Chloride 105 mmol/L (98-107); Creatinine, Serum 0.68 mg/dL (0.55-1.02); EST Glomerular Filtration Rate 91 mL/min (>60); Est Glom Filt Rate - Afr Amer 110 mL/min (>60); Estimated Creatinine Clearance 34.01 ml/min; Glucose 151 mg/dL (74-106); Potassium 3.7 mmol/L (3.5-5.1); Sodium Level 139 mmol/L (136-145)
--- NOTE | 2022-05-15 06:19 | CPS ---
RESULTS GIVEN TO CHARLEEN ABRAHAM
--- NOTE | 2022-05-15 07:12 | CPS ---
Patient intubated, will resume PEP when extubated
[2022-05-15] MEDS: Loratadine 10 MG Tablet GT (08:22)
[2022-05-15] MEDS: Chlorhexidine 15 ML PO ×2 (08:22→21:16)
[2022-05-15] MEDS: Potassium Chloride Oral Tablet 20 MEQ GT ×2 (08:22→16:41)
[2022-05-15] MEDS: Lisinopril 2.5 MG Tablet GT (08:23)
[2022-05-15] MEDS: Digoxin 250 MCG Tablet GT (08:23)
[2022-05-15] MEDS: Magnesium Chloride 64 MG Delay Rel.Tablet 128 MG PO (08:23)
[2022-05-15 08:35] LABS: Absolute Lymphocyte Count 0.19 X10^3/uL (0.83-4.51); Absolute Neutrophil Count 7.7 X10^3/uL (2.0-7.7); Basophil# 0.01 X10^3/uL; Basophil% 0.1 % (0-1); Hematocrit 32.5 % (37-47); Hemoglobin 10.1 g/dL (12.0-15.0); Lymphocyte # 0.19 X10^3/ul (0.83-4.51); Lymphocyte % 2.3 % (19-41); Mean Corp Hgb Conc 31.1 g/dL (32-36); Mean Corpuscular Hgb 30.1 pg (27.0-32.0); Mean Platelet Vol. 10.7 fl (6.2-12.0); Monocyte# 0.32 X10^3/uL; Monocyte% 3.9 % (0-10); NRBC Flagged by Analyzer 0.4 % (0-5); Neutrophil # 7.66 X10^3/uL (2.7-7.7); Neutrophil % 93.1 % (47-70); POSITIVE DIFFERENTIAL YES; Platelet Count 134 K/mm3 (150-450); RBC Distribution Width CV 16.6 % (11.6-14.6); RBC Distribution Width SD 59.4 fl (35.1-43.9); Red Blood Count 3.35 M/mm3 (4.2-5.4); White Blood Count 8.2 K/mm3 (4.4-11.0)
[2022-05-15 08:39] LABS: Differential Indicated SCAN CRITERIA MET
[2022-05-15] MEDS: Furosemide 20 MG/2 ML VIAL IV (09:17)
[2022-05-15 09:25] LABS: Platelet Estimate ADEQUATE (ADEQ); Red Cell Morphology NORM C+C NORMAL (NORM C&C)
--- NOTE | 2022-05-15 09:48 | PN.HOSP_ITS ---
Subjective Subjective Intubated and sedated overnight secondary to likely flash pulmonary edema Objective Data Objective Data Vital Signs: Vital Signs Temp Pulse Resp BP Pulse Ox O2 Del Method O2 Flow Rate 99.3 F H 85 16 107/61 94 Mechanical Ventilator 3 05/15/22 08:00 05/15/22 09:00 05/15/22 09:00 05/15/22 09:00 05/15/22 09:00 05/15/22 09:00 05/14/22 18:00 FiO2 35 05/15/22 09:00 Oxygen Flow Rate (L/min) 3 Oxygen Delivery Method Mechanical Ventilator Weight: 94 lb 12.78 oz Body Mass Index (BMI) 20.5 Intake & Output: Intake and Output for Last 24 Hours 05/14/22 05/15/22 05/16/22 03:59 03:59 03:59 Intake Total 2643.63 / 3074.93 2356.97 / 2426.57 548.14 / 548.14 Output Total 1625 / 1625 2475 / 2475 400 / 400 Balance 1018.63 / 1449.93 -118.03 / -48.43 148.14 / 148.14 Lab / Micro Data Result Diagrams: 05/15/22 08:15 05/15/22 05:06 Labs: Laboratory Results - last 24 hr 05/11/22 15:20: Crossmatch See Detail 05/14/22 03:55: Platelet Estimate ADEQUATE, RBC Morphology NORM C+C 05/15/22 05:06: Sodium 139, Potassium 3.7, Chloride 105, Carbon Dioxide 27.0, Anion Gap 7, BUN 32 H, Creatinine 0.68, Estim Creat Clear Calc 34.01, Est GFR (MDRD) Af Amer 110, Est GFR (MDRD) Non-Af 91, BUN/Creatinine Ratio 47.4 H, Glucose 151 H, Calcium 8.4 L 05/15/22 08:15: WBC 8.2, RBC 3.35 L, Hgb 10.1 L, Hct 32.5 L, MCV 97.0, MCH 30.1, MCHC 31.1 L, RDW Std Deviation 59.4 H, RDW Coeff of Surinder 16.6 H, Plt Count 134 L, MPV 10.7, Immature Gran % (Auto) 0.600, Neut % (Auto) 93.1 H, Lymph % (Auto) 2.3 L, [place] % (Auto) 3.9, Eos % (Auto) 0.0, Baso % (Auto) 0.1, Absolute Neuts (auto) 7.7, Absolute Lymphs (auto) 0.19 L, Nucleated RBC % 0.4, Platelet Estimate ADEQUATE, RBC Morphology NORM C+C Micro: Microbiology 05/14/22 20:05 Sputum, Tracheal Aspirate Respiratory Culture - Preliminary Appears to be normal respiratory mariano. Further studies to follow. 05/11/22 00:00 Urine Catheter - Bailey Urine Culture - Final Culture exhibits no growth. 05/11/22 19:40 Sputum, Expectorated/Coughed Gram Stain - Final 05/11/22 19:40 Sputum, Expectorated/Coughed Respiratory Culture - Final 05/11/22 11:30 Blood Culture (Wb) #2 - Left Wrist Blood Culture - Preliminar y No growth in 48 hours. 05/11/22 11:50 Blood Culture (Wb) - Right Wrist Blood Culture - Preliminary No growth in 48 hours. 05/11/22 21:45 Urine Catheter - Bailey Legionella Antigen - Final 05/11/22 21:45 Urine Catheter - Bailey Streptococcus pneumoniae Antigen (M - Final 05/11/22 11:21 Nasal Secretion SARS-CoV-2 & FLU Antigen (Rapid) - Final ABG Data ABG results: ABG 05/14/22 05/14/22 18:35 20:57 Specimen Type ART ART Sample Site L Radial pH 7.12 L* Bicarbonate Actual 20.8 L Total CO2 23 Base Excess -8 L O2 Saturation 99 O2 % 75 ABG pCO2 63.6 H ABG pO2 160 H VBG pH 7.35 VBG pO2 39 VBG HCO3 21 L VBG Total CO2 23 VBG O2 Sat (Calc) 71 H VBG Base Excess -4 L POC Mix VBG pCO2 Pt Tmp 38.9 L Respiration Rate 14 12 O2 Delivery Device BiPAP ET Tube Vent Mode avaps Tidal Volume 450 POC PEEP 10 5 Crit Call To/Read Back Yes Radiography Diagnostic Testing: Radiology Impression Chest X-Ray 05/14/22 18:35 IMPRESSION: Moderate emphysema with bilateral airspace disease more focal in the right upper lobe, however less pronounced compared to the most recent examination. Distortion of parenchyma possible underlying scar formation, other etiology not excluded. Possible atelectasis or trace fluid in the lung bases. Atherosclerosis, osteoporosis, multilevel vertebroplasty as on previous exam. Electronically Signed: Vivienne Geller MD at 19:39 EST Reading Location ID and State: , Service support , Chest X-Ray 05/14/22 18:55 IMPRESSION: Lines in good position. Diffuse airspace disease, more focal in the right upper lobe with distortion of parenchyma/possibly scarring left upper lobe, superimposed on the emphysema. Follow-up examination to resolution recommended. Other nonacute findings as outlined above. Electronically Signed: Vivienne Geller MD at 20:01 EST Reading Location ID and State: , Service support , Physical Exam Const General Appearance: intubated and patient mechanically ventilated HEENT normocephalic Eyes PERRL and conjunctivae normal Neck supple and no JVD Resp normal respiratory effort, no retractions and no use of accessory muscles Resp Narrative: Diminished Auscultation: Negative for crackles, rales, rhonchi or wheezes Cardio regular rate, regular rhythm, S1 normal heart sound, S2 normal heart sound and no murmurs GI soft to palpation and non-distended; Negative for hepatosplenomegaly Extremity no clubbing, cyanosis or edema Skin no rashes or lesions noted Neuro Sensorium / Orientation: sedated on vent Psych Appearance: intubated Assessment & Plan Assessment/Plan (1) Pneumonia: QUALIFIERS: Pneumonia type: due to Pneumococcus Laterality: right Lung location: middle lobe of lung Qualified Code(s): J13 - Pneumonia due to Streptococcus pneumoniae (2) Acute respiratory failure with hypoxia: PLAN: Plan 1. Acute hypoxic respiratory failure secondary to right middle lobe pneumonia/SVT/COPD/anemia ? She had to be intubated yesterday after going into flash pulmonary edema ? Continue with a PPI, as she is a little bit anemic requiring transfusion ? Appreciate pulmonology's assistance ? We will continue with Levaquin for this work-up is all negative ? We will continue with steroids ? We will continue with metoprolol for rate control, as well as digoxin ? Her echocardiogram demonstrates an EF of 35% with an RVSP of 35 mmHg, will resume IV Lasix ?She was transfused yesterday, hemoglobin today is 10.1 we will continue to monitor 2. Small cell lung cancer with associated SIADH ? Apparently told the admitting physician that she was in remission, she does follow with oncology and per their last note she is undergoing radiation treatments. There was some question as to whether or not she had metastatic disease ? We will continue to monitor her sodium for her SIADH and be cautious with IV fluid 3. HTN/HLD/CAD status post stent/paroxysmal A. fib/chronic systolic CHF/peripheral artery disease ? We will resume blood pressure medications as able ? We will hold her Eliquis ? We will continue with her Lasix and also digoxin to help with the rate control as well as Toprol that she was darted on while here ? Echo in December with an EF of 25 to 30% and then a recheck in January showed the EF was 60%, repeat echo now shows an EF of 35% ? She has status post aortofemoral bypass DVT: SCDs Charges/Coding Visit Charges Inpatient E&M: 52702 Subs Hosp L2
[2022-05-15] MEDS: levoFLOXacin IV 750 MG/150 ML BAG 100 MG IV (09:52)
--- NOTE | 2022-05-15 13:28 | EKG12_ITS ---
Test Reason : ARRYTHMIA Blood Pressure : / mmHG Vent. Rate : 099 BPM Atrial Rate : 099 BPM P-R Int : 152 ms QRS Dur : 092 ms QT Int : 368 ms P-R-T Axes : 065 058 249 degrees QTc Int : 472 ms Normal sinus rhythm ST & T wave abnormality, consider inferior ischemia ST & T wave abnormality, consider anterior ischemia Prolonged QT Abnormal ECG Confirmed by PAULINA HASKINS, AARTI ([id number]), legal editor JESSIE HORNE ([id number]) on 05/19/2022 8:21:04 AM Referred By: GRISELDA Confirmed By:AARTI GALLARDO MD
--- NOTE | 2022-05-15 14:05 | PN.CARD_ITS ---
Subjective Subjective Patient intubated last night Seen and evaluated today at bedside in ICU along with the nursing staff. Objective Data Vital Signs: Vital Signs Temp Pulse Resp BP Pulse Ox O2 Del Method O2 Flow Rate 99.9 F H 112 H 20 H 86/55 L 94 Mechanical Ventilator 3 05/15/22 12:00 05/15/22 13:00 05/15/22 13:00 05/15/22 13:00 05/15/22 13:00 05/15/22 13:00 05/14/22 18:00 FiO2 35 05/15/22 13:00 Oxygen Flow Rate (L/min) 3 Oxygen Delivery Method Mechanical Ventilator Weight: 94 lb 12.78 oz Body Mass Index (BMI) 20.5 Intake & Output: Intake and Output for Last 24 Hours 05/13/22 05/14/22 05/15/22 23:59 23:59 23:59 Intake Total 2809.00 / 2870.48 2388.17 / 2456.12 1196.55 / 1196.55 Output Total 1500 / 1875 1400 / 2850 2850 / 2850 Balance 1309.00 / 995.48 988.17 / -393.88 -1653.45 / -1653.45 Lab / Micro Data Result Diagrams: 05/15/22 08:15 05/15/22 05:06 Labs: Laboratory Results - last 24 hr 05/11/22 15:20: Crossmatch See Detail 05/14/22 03:55: Platelet Estimate ADEQUATE, RBC Morphology NORM C+C 05/15/22 05:06: Sodium 139, Potassium 3.7, Chloride 105, Carbon Dioxide 27.0, Anion Gap 7, BUN 32 H, Creatinine 0.68, Estim Creat Clear Calc 34.01, Est GFR (MDRD) Af Amer 110, Est GFR (MDRD) Non-Af 91, BUN/Creatinine Ratio 47.4 H, Glucose 151 H, Calcium 8.4 L 05/15/22 08:15: WBC 8.2, RBC 3.35 L, Hgb 10.1 L, Hct 32.5 L, MCV 97.0, MCH 30.1, MCHC 31.1 L, RDW Std Deviation 59.4 H, RDW Coeff of Surinder 16.6 H, Plt Count 134 L, MPV 10.7, Immature Gran % (Auto) 0.600, Neut % (Auto) 93.1 H, Lymph % (Auto) 2.3 L, [place] % (Auto) 3.9, Eos % (Auto) 0.0, Baso % (Auto) 0.1, Absolute Neuts (auto) 7.7, Absolute Lymphs (auto) 0.19 L, Nucleated RBC % 0.4, Platelet Estimate ADEQUATE, RBC Morphology NORM C+C Micro: Microbiology 05/14/22 20:05 Sputum, Tracheal Aspirate Gram Stain - Final 05/14/22 20:05 Sputum, Tracheal Aspirate Respiratory Culture - Preliminary Appears to be normal respiratory mariano. Further studies to follow. 05/11/22 00:00 Urine Catheter - Bailey Urine Culture - Final Culture exhibits no growth. 05/11/22 19:40 Sputum, Expectorated/Coughed Gram Stain - Final 05/11/22 19:40 Sputum, Expectorated/Coughed Respiratory Culture - Final ABG Data ABG results: ABG 05/14/22 05/14/22 18:35 20:57 Specimen Type ART ART Sample Site L Radial pH 7.12 L* Bicarbonate Actual 20.8 L Total CO2 23 Base Excess -8 L O2 Saturation 99 O2 % 75 ABG pCO2 63.6 H ABG pO2 160 H VBG pH 7.35 VBG pO2 39 VBG HCO3 21 L VBG Total CO2 23 VBG O2 Sat (Calc) 71 H VBG Base Excess -4 L POC Mix VBG pCO2 Pt Tmp 38.9 L Respiration Rate 14 12 O2 Delivery Device BiPAP ET Tube Vent Mode avaps Tidal Volume 450 POC PEEP 10 5 Crit Call To/Read Back Yes Cardiology Labs/Tests 05/14/22 18:35: pH 7.12 L*, Bicarbonate Actual 20.8 L, Base Excess -8 L, O2 Satu ration 99, ABG pCO2 63.6 H, ABG pO2 160 H 05/14/22 20:57: VBG pH 7.35, VBG pO2 39, VBG HCO3 21 L, VBG O2 Sat (Calc) 71 H, VBG Base Excess -4 L 05/15/22 05:06: Sodium 139, Potassium 3.7, Chloride 105, Carbon Dioxide 27.0, Anion Gap 7, BUN 32 H, Creatinine 0.68, Est GFR (MDRD) Af Amer 110, Est GFR (MDRD) Non-Af 91, BUN/Creatinine Ratio 47.4 H, Glucose 151 H, Calcium 8.4 L 05/15/22 08:15: WBC 8.2, RBC 3.35 L, Hgb 10.1 L, Hct 32.5 L, MCV 97.0, MCH 30.1, MCHC 31.1 L, Plt Count 134 L, MPV 10.7, Immature Gran % (Auto) 0.600, Neut % (Auto) 93.1 H, Lymph % (Auto) 2.3 L, [place] % (Auto) 3.9, Eos % (Auto) 0.0, Baso % (Auto) 0.1, Absolute Neuts (auto) 7.7, Nucleated RBC % 0.4 Rhythm: EKG: ECHO: Stress Test: Cardiac Cath: PCI: CT Surgery: Holter monitor: EPS: PPM: CXR: Chest CT Scan: Radiography Diagnostic Testing: Radiology Impression Chest X-Ray 05/14/22 18:35 IMPRESSION: Moderate emphysema with bilateral airspace disease more focal in the right upper lobe, however less pronounced compared to the most recent examination. Distortion of parenchyma possible underlying scar formation, other etiology not excluded. Possible atelectasis or trace fluid in the lung bases. Atherosclerosis, osteoporosis, multilevel vertebroplasty as on previous exam. Electronically Signed: Vivienne Geller MD at 19:39 EST Reading Location ID and State: [place] , Service support , Chest X-Ray 05/14/22 18:55 IMPRESSION: Lines in good position. Diffuse airspace disease, more focal in the right upper lobe with distortion of parenchyma/possibly scarring left upper lobe, superimposed on the emphysema. Follow-up examination to resolution recommended. Other nonacute findings as outlined above. Electronically Signed: Vivienne Geller MD at 20:01 EST , Physical Exam Cardio Cardio Narrative: Patient intubated and sedated on the vent Cardiac rhythm is atrial fibrillation Cardiovascular exam S1-S2 is irregular No systolic or diastolic murmur Chest examination diminished air entry bilaterally. Assessment & Plan Assessment/Plan (1) Acute respiratory failure with hypoxia: (2) Heart failure with reduced ejection fraction: (3) Paroxysmal atrial fibrillation: (4) S/P PTCA (percutaneous transluminal coronary angioplasty): (5) CAD (coronary artery disease): PLAN: This 72-year-old patient with a history of small cell lung cancer and associated SIADH Patient has acute hypoxic respiratory failure with right middle lobe pneumonia Intubated last night and started on a ventilator From cardiac standpoint she had history of CAD with a prior PCI and stenting paroxysmal atrial fibrillation with ischemic cardiomyopathy ejection fracture on the last echocardiogram in the range of 35% Also patient has peripheral vascular disease status post aortofemoral bypass surgery Cardiac care plan recommendations; 1. We will continue current treatment for rate control using beta-anmol. No further cardiac input and will be available if further cardiac need arise.
--- NOTE | 2022-05-15 16:40 | RAD_ITS ---
EXAM: XR CHEST, 1 VIEW CLINICAL INDICATION: PICC line placement TECHNIQUE: Frontal view of the chest. This report was created using [employer] report generation technology. COMPARISON: 05/14/2022 FINDINGS: LUNGS AND PLEURAL SPACES: Right upper lobe pneumonia persists. There are stable underlying interstitial opacities. No pneumothorax. No effusion. HEART: Unremarkable. Cardiac silhouette not enlarged. MEDIASTINUM: Central airways and mediastinal contour are unremarkable. BONES/JOINTS: Unremarkable. SOFT TISSUES: Unremarkable. TUBES, LINES AND DEVICES: Endotracheal tube and nasogastric tube are in stable position. Right-sided PICC line is in place with distal tip overlying the superior vena cava. RAD/CXR for Line Placement IMPRESSION: No change in the appearance of the chest from reference examination. Support structures in good position. Electronically Signed: Hang La MD at 17:57 EST ,
[2022-05-15] MEDS: Acetaminophen 650 MG/20 ML UDC GT (16:41)
[2022-05-15] MEDS: Vital AF 1.2 Cal Liquid 1,000 ML 45 ML GT (16:42)
--- NOTE | 2022-05-15 16:49 | RAD_ITS ---
EXAM: XR CHEST, 1 VIEW CLINICAL INDICATION: line placement TECHNIQUE: Frontal view of the chest. This report was created using [employer] report generation technology. COMPARISON: 05/15/2022 at 1638 hours FINDINGS: LUNGS AND PLEURAL SPACES: There is right upper lobe pneumonia with diffuse bilateral interstitial opacities. No pneumothorax. No effusion. HEART: Unremarkable. Cardiac silhouette not enlarged. MEDIASTINUM: Central airways and mediastinal contour are unremarkable. BONES/JOINTS: Unremarkable. SOFT TISSUES: Unremarkable. TUBES, LINES AND DEVICES: Endotracheal tube, nasogastric tube and right PICC line are in stable position. RAD/CXR for Line Placement IMPRESSION: No change in the appearance of the chest from the reference exam. Support structures in stable position. Electronically Signed: Hang La MD at 17:58 EST ,
[2022-05-15] MEDS: Amiodarone 360 MG in Dextrose 5% Viaflo Bag 192.8 ML 33.3 MG CONT INF (18:20)
[2022-05-15] MEDS: Metoprolol Tartrate 25 MG Tablet 12.5 MG GT (21:17)
[2022-05-15] MEDS: Atorvastatin Calcium 10 MG Tablet GT (21:18)
[2022-05-16] VITALS (37 sets, daily range): BP systolic 96–135; BP diastolic 49–70; PULSE 66–95; RESP 12–25; TEMP 37.7–38.3; O2SAT 90–98
[2022-05-16] MEDS: Amiodarone 360 MG in Dextrose 5% Viaflo Bag 192.8 ML 16.7 MG CONT INF ×2 (00:20→12:12)
[2022-05-16] MEDS: Ipratropium/Albuterol Sulfate 3 ML AMPUL.NEB INHALATION ×6 (03:40→22:40)
[2022-05-16 04:11] LABS: Absolute Lymphocyte Count 0.13 X10^3/uL (0.83-4.51); Absolute Neutrophil Count 5.8 X10^3/uL (2.0-7.7); Hematocrit 29.1 % (37-47); Hemoglobin 9.3 g/dL (12.0-15.0); Lymphocyte # 0.13 X10^3/ul (0.83-4.51); Lymphocyte % 2.1 % (19-41); Mean Corpuscular Hgb 31.1 pg (27.0-32.0); Mean Corpuscular Volume 97.3 fL (81-99); Mean Platelet Vol. 10.1 fl (6.2-12.0); Monocyte# 0.15 X10^3/uL; Monocyte% 2.5 % (0-10); NRBC Flagged by Analyzer 0.3 % (0-5); Neutrophil # 5.79 X10^3/uL (2.7-7.7); Neutrophil % 94.9 % (47-70); POSITIVE DIFFERENTIAL YES; Platelet Count 107 K/mm3 (150-450); RBC Distribution Width CV 15.9 % (11.6-14.6); RBC Distribution Width SD 57.6 fl (35.1-43.9); Red Blood Count 2.99 M/mm3 (4.2-5.4); White Blood Count 6.1 K/mm3 (4.4-11.0)
[2022-05-16 04:24] LABS: Differential Indicated SCAN CRITERIA MET
[2022-05-16] MEDS: 0.9% Saline Lock 10 ML Syringe IV ×3 (05:31→16:12)
[2022-05-16 05:32] LABS: Anion Gap 5 (5-15); BUN 36 mg/dL (7-18); BUN/Creat Ratio 57.4 RATIO (10-20); Calcium,Total 8.8 mg/dL (8.5-10.1); Chloride 104 mmol/L (98-107); Creatinine, Serum 0.63 mg/dL (0.55-1.02); EST Glomerular Filtration Rate 99 mL/min (>60); Est Glom Filt Rate - Afr Amer 120 mL/min (>60); Estimated Creatinine Clearance 34.01 ml/min; Glucose 195 mg/dL (74-106); Potassium 3.9 mmol/L (3.5-5.1); Sodium Level 141 mmol/L (136-145)
[2022-05-16] MEDS: Sodium Chloride 1 GM Tablet PO ×3 (05:32→21:34)
[2022-05-16 06:15] LABS: Anisocytosis 1+; Platelet Estimate SLT DEC (ADEQ)
--- NOTE | 2022-05-16 08:04 | PN.CC_ITS ---
Assessment & Plan Assessment/Plan (1) Acute respiratory failure with hypoxia: (2) Pneumonia: QUALIFIERS: Laterality: right Lung location: middle lobe of lung Pneumonia type: due to Pneumococcus Qualified Code(s): J13 - Pneumonia due to Streptococcus pneumoniae (3) History of lung cancer: (4) Severe protein-calorie malnutrition: PLAN: Plan RECOMMENDATIONS: 1. Continue assist-control mode mechanical ventilation. Wean FiO2 and PEEP to maintain oxygen saturations at or above 90%. 2. Continue to monitor H&H daily. Transfuse if hemoglobin drops below 7 g/dL. 3. Continue antimicrobials as ordered. 4. Continue Precedex and fentanyl for sedation. 5. Continue tube feeds as tolerated. 6. Continue scheduled bronchodilators and IV steroids. 7. Continue PPI therapy. 8. Ongoing diuresis as tolerated by hemodynamics and renal function. 9. Consider initiation of long-acting anxiolytic, prior to attempts at extubation. IMPRESSIONS: 1.??Acute hypoxic respiratory failure in the setting of COPD and history of small cell lung cancer The patient presented with an acute COPD exacerbation which appears to be secondary to a right upper lobe infiltrate. The patient has slowly improved from a respiratory perspective. She remains on appropriate antimicrobials, scheduled bronchodilators and steroids. Although the patient was able to be extubated on 05/14, she decompensated from a respiratory perspective approximately 12 hours later and had to be reintubated. Clinical concern that the patient's underlying anemia and anxiety may have contributed to her decompensation. For now, she will be maintained on assist control mode mechanical ventilation. FiO2 and PEEP will be weaned to maintain oxygen saturations at or above 90%. We will plan to continue gentle diuresis as tolerated by hemodynamics and renal function. Tube feeds will be continued as tolerated. 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 The patient will be continued on appropriate PPI therapy. There are no overt signs of blood loss. If the patient remains anemic, I would recommend consultation to gastroenterology. 3.??Cardiomyopathy/paroxysmal A. fib/SVT Continue medical management per cardiology recommendations. 4.??Chronic pain syndrome/osteoporosis/GERD with history of GI bleed/CAD/debility Complicates care, management, recovery and prognosis.? Continue supportive measures as noted above, including tube feeds as tolerated. TIME: 33 minutes of critical care time, independent of procedures, was spent addressing the patient's acute hypoxemic respiratory failure, COPD with ex acerbation, anemia, cardiomyopathy, review of all data and collaboration with the care team. Subjective Subjective The patient was seen and examined at the bedside this morning. Events from the last 24 hours have been reviewed. The patient is currently afebrile, hemodynamically stable and maintaining appropriate oxygen saturations on assist control mode mechanical ventilation with an FiO2 requirement of 30%. The patie nt is currently documented to be overall net +4.2 L for the hospitalization. She remains sedated on fentanyl and Precedex. The patient was started on amiodarone overnight due to atrial fibrillation, but has since converted back to normal sinus rhythm. The patient remains thrombocytopenic with a platelet count of 107,000. Objective Data Objective Data The patient's most recent lab work, culture data and imaging studies have all been personally reviewed. Surface echocardiogram demonstrated normal LV size with moderate global LV systolic dysfunction and an ejection fraction of 35%. Vital Signs: Vital Signs Temp Pulse Resp BP Pulse Ox O2 Del Method O2 Flow Rate 100.2 F H 95 25 H 124/62 H 94 Mechanical Ventilator 3 05/16/22 07:00 05/16/22 07:14 05/16/22 07:14 05/16/22 07:00 05/16/22 07:00 05/16/22 07:50 05/14/22 18:00 FiO2 30 05/16/22 07:00 Oxygen Flow Rate (L/min) 3 Oxygen Delivery Method Mechanical Ventilator Weight: 94 lb 12.78 oz Body Mass Index (BMI) 20.5 Intake & Output: Intake and Output for Last 24 Hours 05/14/22 05/15/22 05/16/22 23:59 23:59 23:59 Intake Total 2388.17 / 2456.12 2453.93 / 2520.88 734.16 / 734.16 Output Total 1400 / 2850 3450 / 3450 400 / 400 Balance 988.17 / -393.88 -996.07 / -929.12 334.16 / 334.16 Lab / Micro Data Attestation: I reviewed the patient's lab results. Result Diagrams: 05/17/22 04:30 05/17/22 04:30 Labs: Laboratory Results - last 24 hr 05/11/22 15:20: Crossmatch See Detail 05/15/22 08:15: WBC 8.2, RBC 3.35 L, Hgb 10.1 L, Hct 32.5 L, MCV 97.0, MCH 30.1, MCHC 31.1 L, RDW Std Deviation 59.4 H, RDW Coeff of Surinder 16.6 H, Plt Count 134 L, MPV 10.7, Immature Gran % (Auto) 0.600, Neut % (Auto) 93.1 H, Lymph % (Auto) 2.3 L, [place] % (Auto) 3.9, Eos % (Auto) 0.0, Baso % (Auto) 0.1, Absolute Neuts (auto) 7.7, Absolute Lymphs (auto) 0.19 L, Nucleated RBC % 0.4, Platelet Estimate ADEQUATE, RBC Morphology NORM C+C 05/16/22 04:00: WBC 6.1, RBC 2.99 L, Hgb 9.3 L, Hct 29.1 L, MCV 97.3, MCH 31.1, MCHC 32.0, RDW Std Deviation 57.6 H, RDW Coeff of Surinder 15.9 H, Plt Count 107 L, MPV 10.1, Immature Gran % (Auto) 0.500, Neut % (Auto) 94.9 H, Lymph % (Auto) 2.1 L, [place] % (Auto) 2.5, Eos % (Auto) 0.0, Baso % (Auto) 0.0, Absolute Neuts (auto) 5.8, Absolute Lymphs (auto) 0.13 L, Nucleated RBC % 0.3, Platelet Estimate SLT DEC, Anisocytosis 1+ 05/16/22 04:00: Sodium 141, Potassium 3.9, Chloride 104, Carbon Dioxide 32.0, Anion Gap 5, BUN 36 H, Creatinine 0.63, Estim Creat Clear Calc 34.01, Est GFR (MDRD) Af Amer 120, Est GFR (MDRD) Non-Af 99, BUN/Creatinine Ratio 57.4 H, Glucose 195 H, Calcium 8.8 Micro: Microbiology 05/14/22 20:05 Sputum, Tracheal Aspirate Gram Stain - Final 05/14/22 20:05 Sputum, Tracheal Aspirate Respiratory Culture - Preliminary Appears to be normal respiratory mariano. Further studies to follow. 05/11/22 00:00 Urine Catheter - Bailey Urine Culture - Final Culture exhibits no growth. 05/11/22 19:40 Sputum, Expectorated/Coughed Gram Stain - Final 05/11/22 19:40 Sputum, Expectorated/Coughed Respiratory Culture - Final 05/11/22 11:30 Blood Culture (Wb) #2 - Left Wrist Blood Culture - Preli minary No growth in 48 hours. 05/11/22 11:50 Blood Culture (Wb) - Right Wrist Blood Culture - Preliminary No growth in 48 hours. 05/11/22 21:45 Urine Catheter - Bailey Legionella Antigen - Final 05/11/22 21:45 Urine Catheter - Bailey Streptococcus pneumoniae Antigen (M - Final 05/11/22 11:21 Nasal Secretion SARS-CoV-2 & FLU Antigen (Rapid) - Final ABG Data ABG results: ABG 05/14/22 05/14/22 18:35 20:57 Specimen Type ART ART Sample Site L Radial pH 7.12 L* Bicarbonate Actual 20.8 L Total CO2 23 Base Excess -8 L O2 Saturation 99 O2 % 75 ABG pCO2 63.6 H ABG pO2 160 H VBG pH 7.35 VBG pO2 39 VBG HCO3 21 L VBG Total CO2 23 VBG O2 Sat (Calc) 71 H VBG Base Excess -4 L POC Mix VBG pCO2 Pt Tmp 38.9 L Respiration Rate 14 12 O2 Delivery Device BiPAP ET Tube Vent Mode avaps Tidal Volume 450 POC PEEP 10 5 Crit Call To/Read Back Yes Radiography Diagnostic Testing: Radiology Impression Chest X-Ray 05/15/22 16:40 IMPRESSION: No change in the appearance of the chest from reference examination. Support structures in good position. Electronically Signed: Hang La MD at 17:57 EST , Chest X-Ray 05/15/22 16:49 IMPRESSION: No change in the appearance of the chest from the reference exam. Support structures in stable position. Electronically Signed: Hang La MD at 17:58 EST , Physical Exam Const no apparent distress General Appearance: intubated and patient mechanically ventilated Nutritional Appearance: thin HEENT normocephalic and head/scalp atraumatic Mouth: endotracheal tube in place and OG tube in place Eyes PERRL, EOMs intact bilaterally and conjunctivae normal Neck supple General: trachea midline Chest Chest Narrative: Increased AP diameter Resp Auscultation: diminished lung sounds; Negative for rales, rhonchi or wheezes Cardio regular rate, regular rhythm, S1 normal heart sound and S2 normal heart sound GI normal to inspection, nondistended, normoactive bowel sounds Extremity no clubbing, cyanosis or edema Skin no rashes or lesions noted Neuro Sensorium / Orientation: sedated on vent Charges/Coding Procedures Hospitalists Procedures: 78958 Critial Care 1st Hr
[2022-05-16] MEDS: Furosemide 40 MG/4 ML Vial IV (08:56)
[2022-05-16] MEDS: Furosemide 20 MG/2 ML VIAL IV (09:14)
[2022-05-16] MEDS: Potassium Chloride Oral Tablet 20 MEQ GT ×2 (09:14→16:12)
[2022-05-16] MEDS: Loratadine 10 MG Tablet GT (09:15)
[2022-05-16] MEDS: Digoxin 250 MCG Tablet GT (09:15)
[2022-05-16] MEDS: Metoprolol Tartrate 25 MG Tablet 12.5 MG GT (09:17)
[2022-05-16] MEDS: Senna/Docusate Sodium 1 Tablet 2 TABLET GT ×2 (09:23→21:34)
[2022-05-16] MEDS: Chlorhexidine 15 ML PO ×2 (09:24→21:33)
[2022-05-16] MEDS: CHLORHEXIDINE GLUC 2% CLOTH 1 EACH TOWELETTE TOPICAL (11:17)
--- NOTE | 2022-05-16 12:42 | PCM.PN.HOSP ---
Subjective Subjective Patient remains intubated and sedated. Low-grade temperatures overnight. Ongoing diuresis occurring. Thus far doing well on spontaneous breathing trial. Objective Data Objective Data Vital Signs: Vital Signs Temp Pulse Resp BP Pulse Ox O2 Del Method O2 Flow Rate 100.7 F H 78 20 H 105/61 94 Mechanical Ventilator 3 05/16/22 12:00 05/16/22 12:00 05/16/22 12:00 05/16/22 12:00 05/16/22 12:00 05/16/22 12:00 05/14/22 18:00 FiO2 30 05/16/22 12:00 Oxygen Flow Rate (L/min) 3 Oxygen Delivery Method Mechanical Ventilator Weight: 42.5 kg Body Mass Index (BMI) 20.5 Intake & Output: Intake and Output for Last 24 Hours 05/14/22 05/15/22 05/16/22 23:59 23:59 23:59 Intake Total 2388.17 / 2456.12 2453.93 / 2520.88 1093.67 / 1093.67 Output Total 1400 / 2850 3450 / 3450 2300 / 2300 Balance 988.17 / -393.88 -996.07 / -929.12 -1206.33 / -1206.33 Lab / Micro Data Result Diagrams: 05/16/22 04:00 05/16/22 04:00 Labs: Laboratory Results - last 24 hr 05/11/22 15:20: Crossmatch See Detail 05/16/22 04:00: WBC 6.1, RBC 2.99 L, Hgb 9.3 L, Hct 29.1 L, MCV 97.3, MCH 31.1, MCHC 32.0, RDW Std Deviation 57.6 H, RDW Coeff of Surinder 15.9 H, Plt Count 107 L, MPV 10.1, Immature Gran % (Auto) 0.500, Neut % (Auto) 94.9 H, Lymph % (Auto) 2.1 L, [place] % (Auto) 2.5, Eos % (Auto) 0.0, Baso % (Auto) 0.0, Absolute Neuts (auto) 5.8, Absolute Lymphs (auto) 0.13 L, Nucleated RBC % 0.3, Platelet Estimate SLT DEC, Anisocytosis 1+ 05/16/22 04:00: Sodium 141, Potassium 3.9, Chloride 104, Carbon Dioxide 32.0, Anion Gap 5, BUN 36 H, Creatinine 0.63, Estim Creat Clear Calc 34.01, Est GFR (MDRD) Af Amer 120, Est GFR (MDRD) Non-Af 99, BUN/Creatinine Ratio 57.4 H, Glucose 195 H, Calcium 8.8 Micro: Microbiology 05/11/22 11:50 Blood Culture (Wb) - Right Wrist Blood Culture - Final No growth in 5 days. 05/11/22 11:30 Blood Culture (Wb) #2 - Left Wrist Blood Culture - Final No growth in 5 days. 05/14/22 20:05 Sputum, Tracheal Aspirate Gram Stain - Final 05/14/22 20:05 Sputum, Tracheal Aspirate Respiratory Culture - Preliminary Appears to be normal respiratory mariano. Further studies to follow. 05/11/22 00:00 Urine Catheter - Bailey Urine Culture - Final Culture exhibits no growth. 05/11/22 19:40 Sputum, Expectorated/Coughed Gram Stain - Final 05/11/22 19:40 Sputum, Expectorated/Coughed Respiratory Culture - Final 05/11/22 21:45 Urine Catheter - Bailey Legionella Antigen - Final 05/11/22 21:45 Urine Catheter - Bailey Streptococcus pneumoniae Antigen (M - Final 05/11/22 11:21 Nasal Secretion SARS-CoV-2 & FLU Antigen (Rapid) - Final Radiography Diagnostic Testing: Radiology Impression Chest X-Ray 05/15/22 16:40 IMPRESSION: No change in the appearance of the chest from reference examination. Support structures in good position. Electronically Signed: Hang La MD at 17:57 EST , Chest X-Ray 05/15/22 16:49 IMPRESSION: No change in the appearance of the chest from the reference exam. Support structures in stable position. Electronically Signed: Hang La MD at 17:58 EST , Physical Exam Const Constitutional Narrative: Older white female, thin, lying in bed intubated and sedated, appears comfortable with no signs of agitation or distress HEENT head/scalp atraumatic, moist oral mucous membranes and oropharynx normal HEENT Narrative: ET tube and OG in place Head and Scalp: normocephalic Eyes PERRL Eyes Narrative: Pale conjunctiva bilaterally, no scleral icterus Resp Resp Narrative: Diffusely diminished Auscultation: Negative for crackles, rhonchi or wheezes Cardio regular rate, regular rhythm, S1 normal heart sound, S2 normal heart sound, no murmurs, no rub, no gallops and no clicks GI normal to inspection, nondistended, normoactive bowel sounds, soft to palpation, non-tender and non-distended GI Narrative: Scaphoid abdomen Extremity no clubbing, cyanosis or edema Extremity Narrative: 2+ pedal pulses Neuro Neuro Narrative: Moves extremities spontaneously but currently not following commands secondary to intubation/sedation Assessment & Plan Assessment/Plan (1) Cardiomyopathy: (2) SVT (supraventricular tachycardia): (3) Acute respiratory failure with hypoxia: (4) Severe protein-calorie malnutrition: (5) Pneumonia: QUALIFIERS: Pneumonia type: due to Pneumococcus Laterality: right Lung location: middle lobe of lung Qualified Code(s): J13 - Pneumonia due to Streptococcus pneumoniae (6) Anemia: QUALIFIERS: Anemia type: unspecified type Qualified Code(s): D64.9 - Anemia, unspecified PLAN: Plan Acute hypoxic respiratory failure-Multifactorial(suspected pneumonia/HFrEF/lung CA/COPD) -Slowly improving clinically -Extubated but required reintubation -Continue tube feeds as ordered -Continue antimicrobials -COVID and respiratory panel are negative -Continue IV Lasix as ordered -Continue mechanical ventilation Acute decompensated heart failure with reduced ejection fraction -Newly worsened EF--> again--> recovered from 12/2021 admission on most recent echo prior to this admission -Patient now appears to be compensated -Continue Lasix IV -Continue metoprolol as ordered -Continue low-dose lisinopril -Echocardiogram from 05/12/2022 showed an EF of 35% with a mildly dilated RV, mild global right ventricular dysfunction, left atrial enlargement, mild mitral valve insufficiency, trivial pericardial effusion with no evidence of tamponade, right ventricular systolic pressure to 35 mmHg -Patient did have follow-up echo after August admission where her EF was noted to be 35% in early January that showed recovery of her EF to 60%, it appears her EF is somewhat labile -Follows with Dr. Champion at [facility] for cardiology at baseline -Cardiology is following-appreciate input AEllis fib with RVR/PAF -Patient has been in and out of A. fib during her hospital stay -Now normal sinus rhythm -Amiodarone drip started overnight -Await cardiology input for continuation -Beta-anmol reinitiated yesterday -Echo as above -Patient had been on Eliquis previously however this is on hold secondary to anemia on presentation -Continue digoxin -Continue metoprolol but decrease to 25 mg p.o. twice daily Anemia/thrombocytopenia -Likely related to chemotherapy -Chemo is carboplatin and etoposide--> last dose 12/22/2021--> next round plan for 01/12/2022(will need to be delayed secondary to illness) -Patient has been transfused several units of packed red blood cells during her hospital course -Repeat BMP in a.m. -Monitor closely and if blood counts continue to be problematic we will consult GI -Platelet counts are close to baseline History of SIADH secondary to her lung CA -Sodium is normal at 141 -Continue fluid restriction at 1.25 L once p.o. has reinitiated -Continue home salt tablets -Continue on IV diuretics -BMP in a.m. Small cell lung CA -Follows with Dr. Corbett -Currently in remission -Chemo and radiation will be on hold until she is more functionally improved to tolerate her next round CAD with history of MD -History of stent placement -Patient is currently not on any statin -Continue home statin -Previous stents were remote at [facility] Hyperlipidemia -Continue home atorvastatin 10 mg nightly COPD/emphysema -As needed albuterol -Scheduled DuoNebs -Hold home Trelegy Ellipta and restart at discharge -Pulmonary medicine is following Severe malnutrition -Continue supplements as able -Tube feeds are at goal -Dietitian following Osteoporosis -Restart alendronate at discharge Chronic pain -Oxy IR 10 mg 3 times daily via OG -Continue scheduled morphine as ordered -Restart home medication once p.o. medication is an option GERD with history of GI bleed -Continue Protonix IV daily -Continue Carafate DVT prophylaxis -SCDs -Chemoprophylaxis on hold secondary to thrombocytopenia and anemia CODE STATUS -Full code Charges/Coding Visit Charges Inpatient E&M: 28792 Subs Hosp L2
[2022-05-16] MEDS: Amiodarone 200 MG Tablet GT ×2 (13:16→21:36)
--- NOTE | 2022-05-16 14:47 | PCM.PN.CARD ---
Subjective Subjective Patient intubated on a ventilator and sedated Seen and evaluated with the nursing staff Cardiac rhythm atrial fibrillation converted to normal sinus On current treatment with IV amiodarone Objective Data Vital Signs: Vital Signs Temp Pulse Resp BP Pulse Ox O2 Del Method O2 Flow Rate 100.1 F H 78 18 103/58 L 91 Mechanical Ventilator 3 05/16/22 14:00 05/16/22 14:00 05/16/22 14:00 05/16/22 14:00 05/16/22 14:00 05/16/22 14:00 05/14/22 18:00 FiO2 30 05/16/22 14:00 Oxygen Flow Rate (L/min) 3 Oxygen Delivery Method Mechanical Ventilator Weight: 93 lb 11.143 oz Body Mass Index (BMI) 20.5 Intake & Output: Intake and Output for Last 24 Hours 05/14/22 05/15/22 05/16/22 23:59 23:59 23:59 Intake Total 2388.17 / 2456.12 2453.93 / 2520.88 1137.27 / 1137.27 Output Total 1400 / 2850 3450 / 3450 2300 / 2300 Balance 988.17 / -393.88 -996.07 / -929.12 -1162.73 / -1162.73 Lab / Micro Data Result Diagrams: 05/16/22 04:00 05/16/22 04:00 Labs: Laboratory Results - last 24 hr 05/11/22 15:20: Crossmatch See Detail 05/16/22 04:00: WBC 6.1, RBC 2.99 L, Hgb 9.3 L, Hct 29.1 L, MCV 97.3, MCH 31.1, MCHC 32.0, RDW Std Deviation 57.6 H, RDW Coeff of Surinder 15.9 H, Plt Count 107 L, MPV 10.1, Immature Gran % (Auto) 0.500, Neut % (Auto) 94.9 H, Lymph % (Auto) 2.1 L, [place] % (Auto) 2.5, Eos % (Auto) 0.0, Baso % (Auto) 0.0, Absolute Neuts (auto) 5.8, Absolute Lymphs (auto) 0.13 L, Nucleated RBC % 0.3, Platelet Estimate SLT DEC, Anisocytosis 1+ 05/16/22 04:00: Sodium 141, Potassium 3.9, Chloride 104, Carbon Dioxide 32.0, Anion Gap 5, BUN 36 H, Creatinine 0.63, Estim Creat Clear Calc 34.01, Est GFR (MDRD) Af Amer 120, Est GFR (MDRD) Non-Af 99, BUN/Creatinine Ratio 57.4 H, Glucose 195 H, Calcium 8.8 Micro: Microbiology 05/11/22 11:50 Blood Culture (Wb) - Right Wrist Blood Culture - Final No growth in 5 days. 05/11/22 11:30 Blood Culture (Wb) #2 - Left Wrist Blood Culture - Final No growth in 5 days. 05/14/22 20:05 Sputum, Tracheal Aspirate Gram Stain - Final 05/14/22 20:05 Sputum, Tracheal Aspirate Respiratory Culture - Preliminary Appears to be normal respiratory mariano. Further studies to follow. Cardiology Labs/Tests 05/16/22 04:00: WBC 6.1, RBC 2.99 L, Hgb 9.3 L, Hct 29.1 L, MCV 97.3, MCH 31.1, MCHC 32.0, Plt Count 107 L, MPV 10.1, Immature Gran % (Auto) 0.500, Neut % (Auto) 94.9 H, Lymph % (Auto) 2.1 L, [place] % (Auto) 2.5, Eos % (Auto) 0.0, Baso % (Auto) 0.0, Absolute Neuts (auto) 5.8, Nucleated RBC % 0.3 05/16/22 04:00: Sodium 141, Potassium 3.9, Chloride 104, Carbon Dioxide 32.0, Anion Gap 5, BUN 36 H, Creatinine 0.63, Est GFR (MDRD) Af Amer 120, Est GFR (MDRD) Non-Af 99, BUN/Creatinine Ratio 57.4 H, Glucose 195 H, Calcium 8.8 Rhythm: EKG: ECHO: Stress Test: Cardiac Cath: PCI: CT Surgery: Holter monitor: EPS: PPM: CXR: Chest CT Scan: Radiography Diagnostic Testing: Radiology Impression Chest X-Ray 05/15/22 16:40 IMPRESSION: No change in the appearance of the chest from reference examination. Support structures in good position. Electronically Signed: Hang La MD at 17:57 EST , Chest X-Ray 05/15/22 16:49 IMPRESSION: No change in the appearance of the chest from the reference exam. Support structures in stable position. Electronically Signed: Hang La MD at 17:58 EST , Physical Exam Cardio Cardio Narrative: Regular cardiac rhythm Cardiovascular Kane S1-S2 regular Chest exam clear to auscultation. Assessment & Plan Assessment/Plan (1) History of lung cancer: (2) Pneumonia: QUALIFIERS: Laterality: right Lung location: middle lobe of lung Pneumonia type: due to Pneumococcus Qualified Code(s): J13 - Pneumonia due to Streptococcus pneumoniae (3) S/P PTCA (percutaneous transluminal coronary angioplasty): (4) Paroxysmal atrial fibrillation: (5) Cardiomyopathy: PLAN: Plan 72-year-old patient with multiple medical comorbidities Patient was seen along and pneumonia Also has acute decompensated heart failure with reduced ejection fraction Last echocardiogram EF in the range of around 35%, patient had a history of CAD with prior PCI and stent Patient had episode of atrial fibrillation during this hospitalization which converted to normal sinus rhythm. In addition to beta-anmol and anticoagulation with Eliquis. Cardiac care plan recommendations; 1. We will continue amiodarone p.o. in addition to beta-anmol. We will continue to monitor and follow-up clinically
[2022-05-16] MEDS: Vital AF 1.2 Cal Liquid 1,000 ML 45 ML GT (19:27)
[2022-05-16] MEDS: Atorvastatin Calcium 10 MG Tablet GT (21:36)
[2022-05-17] VITALS (38 sets, daily range): BP systolic 90–152; BP diastolic 49–81; PULSE 54–84; RESP 12–24; TEMP 36.4–37.9; O2SAT 90–99
[2022-05-17] MEDS: Ipratropium/Albuterol Sulfate 3 ML AMPUL.NEB INHALATION ×6 (02:50→23:18)
[2022-05-17 04:47] LABS: Absolute Lymphocyte Count 0.09 X10^3/uL (0.83-4.51); Absolute Neutrophil Count 5.9 X10^3/uL (2.0-7.7); Hematocrit 29.5 % (37-47); Lymphocyte # 0.09 X10^3/ul (0.83-4.51); Lymphocyte % 1.5 % (19-41); Mean Corp Hgb Conc 30.5 g/dL (32-36); Mean Corpuscular Hgb 29.9 pg (27.0-32.0); Mean Platelet Vol. 11.8 fl (6.2-12.0); Monocyte% 3.2 % (0-10); NRBC Flagged by Analyzer 0 % (0-5); Neutrophil # 5.86 X10^3/uL (2.7-7.7); Neutrophil % 94.8 % (47-70); POSITIVE DIFFERENTIAL YES; Platelet Count 106 K/mm3 (150-450); RBC Distribution Width CV 15.9 % (11.6-14.6); RBC Distribution Width SD 56.8 fl (35.1-43.9); Red Blood Count 3.01 M/mm3 (4.2-5.4); White Blood Count 6.2 K/mm3 (4.4-11.0)
[2022-05-17 05:05] LABS: Differential Indicated SCAN CRITERIA MET
[2022-05-17 05:10] LABS: ALB/GLOB Ratio 0.4 RATIO (0.9-2.4); AST(SGOT) 73 U/L (15-37); Alanine Aminotransfer ALT/SGPT 91 U/L (13-56); Albumin, Serum 1.8 g/dL (3.2-5.0); Alkaline Phosphatase 103 U/L (45-117); Anion Gap 5 (5-15); BUN 37 mg/dL (7-18); Calcium,Total 8.8 mg/dL (8.5-10.1); Chloride 102 mmol/L (98-107); Creatinine, Serum 0.57 mg/dL (0.55-1.02); EST Glomerular Filtration Rate 111 mL/min (>60); Est Glom Filt Rate - Afr Amer 134 mL/min (>60); Estimated Creatinine Clearance 33.46 ml/min; Glucose 196 mg/dL (74-106); Magnesium 2.2 mg/dL (1.6-2.6); Potassium 3.8 mmol/L (3.5-5.1); Protein, Total 5.8 g/dL (6.4-8.2); Sodium Level 142 mmol/L (136-145)
[2022-05-17] MEDS: Sodium Chloride 1 GM Tablet PO ×3 (05:12→20:43)
[2022-05-17] MEDS: 0.9% Saline Lock 10 ML Syringe IV ×2 (05:12→09:14)
--- NOTE | 2022-05-17 07:02 | PN.CC_ITS ---
Assessment & Plan Assessment/Plan (1) Acute respiratory failure with hypoxia: (2) Pneumonia: QUALIFIERS: Laterality: right Lung location: middle lobe of lung Pneumonia type: due to Pneumococcus Qualified Code(s): J13 - Pneumonia due to Streptococcus pneumoniae (3) History of lung cancer: (4) Severe protein-calorie malnutrition: PLAN: Plan RECOMMENDATIONS: 1. Proceed with a trial of extubation this morning. 2. Once extubated, wean supplemental oxygen as tolerated. 3. Perform bedside swallow evaluation and advance diet accordingly. 4. Continue diuretics as tolerated by hemodynamics and renal function. 5. Start scheduled BuSpar twice daily to address underlying anxiety. 6. Continue to monitor H&H daily. Transfuse if hemoglobin drops below 7 g/dL. 7. Continue antimicrobials as ordered. 8. Continue scheduled bronchodilators and IV steroids. 9. Continue PPI therapy. IMPRESSIONS: 1.??Acute hypoxic respiratory failure in the setting of COPD and history of small cell lung cancer The patient presented with an acute COPD exacerbation which appears to be secondary to a right upper lobe infiltrate. The patient has slowly improved from a respiratory perspective. She remains on appropriate antimicrobials, scheduled bronchodilators and steroids. Although the patient was able to be extubated on 05/14, she decompensated from a respiratory perspective approximately 12 hours later and had to be reintubated. Clinical concern that the patient's underlying anemia and anxiety may have contributed to her decompensation. With further volume optimization and stabilization of her anemia status, the patient was able to pass a spontaneous breathing trial this morning. Therefore, plan to proceed with extubation. Prior to extubation, will start scheduled BuSpar in hopes of further addressing the patient's underlying anxiety. Once extubated, supplemental oxygen will be weaned to maintain saturations at or above 90%. Bedside swallow evaluation can be completed and diet advanced accordingly. 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 The patient will be continued on appropriate PPI therapy. There are no overt signs of blood loss. If the patient remains anemic, I would recommend consultation to gastroenterology. 3.??Cardiomyopathy/paroxysmal A. fib/SVT Continue medical management per cardiology recommendations. 4.??Chronic pain syndrome/osteoporosis/GERD with history of GI ble ed/CAD/debility Complicates care, management, recovery and prognosis.? Continue supportive measures as noted above. Physical therapy to work with the patient. TIME: 35 minutes of critical care time, independent of procedures, was spent addressing the patient's acute hypoxemic respiratory failure, COPD with exacerbation, anemia, cardiomyopathy, review of all data and collaboration with the care team. Subjective Subjective The patient was seen and examined at the bedside this morning. Events from the last 24 hours have been reviewed. The patient is currently afebrile, hemodynami kandy stable and maintaining appropriate oxygen saturations on spontaneous mode mechanical ventilation with an FiO2 requirement of 30%. The patient passed her spontaneous breathing trial this morning and is currently able to follow simple commands. She is currently documented to be overall net +2.7 L for the hospitalization. Creatinine is stable. Objective Data Objective Data The patient's most recent lab work, culture data and imaging studies have all been personally reviewed. Surface echocardiogram demonstrated normal LV size with moderate global LV systolic dysfunction and an ejection fraction of 35%. Vital Signs: Vital Signs Temp Pulse Resp BP Pulse Ox O2 Del Method O2 Flow Rate 100 F H 67 16 136/71 H 93 Mechanical Ventilator 3 05/17/22 06:00 05/17/22 06:00 05/17/22 06:00 05/17/22 06:00 05/17/22 06:00 05/17/22 06:00 05/14/22 18:00 FiO2 30 05/17/22 06:00 Oxygen Flow Rate (L/min) 3 Oxygen Delivery Method Mechanical Ventilator Weight: 93 lb 4.089 oz Body Mass Index (BMI) 20.5 Intake & Output: Intake and Output for Last 24 Hours 05/15/22 05/16/22 05/17/22 23:59 23:59 23:59 Intake Total 2453.93 / 2520.88 2166.25 / 2243.05 479.57 / 479.57 Output Total 3450 / 3450 3000 / 3450 900 / 900 Balance -996.07 / -929.12 -833.75 / -1206.95 -420.43 / -420.43 Lab / Micro Data Attestation: I reviewed the patient's lab results. Result Diagrams: 05/18/22 02:35 05/18/22 02:35 Labs: Laboratory Results - last 24 hr 05/11/22 15:20: Crossmatch See Detail 05/17/22 04:30: WBC 6.2, RBC 3.01 L, Hgb 9.0 L, Hct 29.5 L, MCV 98.0, MCH 29.9, MCHC 30.5 L, RDW Std Deviation 56.8 H, RDW Coeff of Surinder 15.9 H, Plt Count 106 L, MPV 11.8, Immature Gran % (Auto) 0.500, Neut % (Auto) 94.8 H, Lymph % (Auto) 1.5 L, [place] % (Auto) 3.2, Eos % (Auto) 0.0, Baso % (Auto) 0.0, Absolute Neuts (auto) 5.9, Absolute Lymphs (auto) 0.09 L, Nucleated RBC % 0 05/17/22 04:30: Sodium 142, Potassium 3.8, Chloride 102, Carbon Dioxide 35.0 H, Anion Gap 5, BUN 37 H, Creatinine 0.57, Estim Creat Clear Calc 33.46, Est GFR (MDRD) Af Amer 134, Est GFR (MDRD) Non-Af 111, BUN/Creatinine Ratio 65.0 H, Glucose 196 H, Calcium 8.8, Phosphorus 3.0, Magnesium 2.2, Total Bilirubin 0.40, AST 73 H, ALT 91 H, Alkaline Phosphatase 103, Total Protein 5.8 L, Albumin 1.8 L , Globulin 4.0, Albumin/Globulin Ratio 0.4 L Micro: Microbiology 05/11/22 11:50 Blood Culture (Wb) - Right Wrist Blood Culture - Final No growth in 5 days. 05/11/22 11:30 Blood Culture (Wb) #2 - Left Wrist Blood Culture - Final No growth in 5 days. 05/14/22 20:05 Sputum, Tracheal Aspirate Gram Stain - Final 05/14/22 20:05 Sputum, Tracheal Aspirate Respiratory Culture - Preliminary Appears to be normal respiratory mariano. Further studies to follow. 05/11/22 00:00 Urine Catheter - Bailey Urine Culture - Final Culture exhibits no growth. 05/11/22 19:40 Sputum, Expectorated/Coughed Gram Stain - Final 05/11/22 19:40 Sputum, Expectorated/Coughed Respiratory Culture - Final 05/11/22 21:45 Urine Catheter - Bailey Legionella Antigen - Final 05/11/22 21:45 Urine Catheter - Bailey Streptococcus pneumoniae Antigen (M - Final 05/11/22 11:21 Nasal Secretion SARS-CoV-2 & FLU Antigen (Rapid) - Final ABG Data ABG results: ABG 05/14/22 05/14/22 18:35 20:57 Specimen Type ART ART Sample Site L Radial pH 7.12 L* Bicarbonate Actual 20.8 L Total CO2 23 Base Excess -8 L O2 Saturation 99 O2 % 75 ABG pCO2 63.6 H ABG pO2 160 H VBG pH 7.35 VBG pO2 39 VBG HCO3 21 L VBG Total CO2 23 VBG O2 Sat (Calc) 71 H VBG Base Excess -4 L POC Mix VBG pCO2 Pt Tmp 38.9 L Respiration Rate 14 12 O2 Delivery Device BiPAP ET Tube Vent Mode avaps Tidal Volume 450 POC PEEP 10 5 Crit Call To/Read Back Yes Radiography Diagnostic Testing: Radiology Impression Chest X-Ray 05/15/22 16:40 IMPRESSION: No change in the appearance of the chest from reference examination. Support structures in good position. Electronically Signed: Hang La MD at 17:57 EST , Chest X-Ray 05/15/22 16:49 IMPRESSION: No change in the appearance of the chest from the reference exam. Support structures in stable position. Electronically Signed: Hang La MD at 17:58 EST , Physical Exam Const alert and no apparent distress General Appearance: intubated and patient mechanically ventilated Nutritional Appearance: thin HEENT normocephalic and head/scalp atraumatic Mouth: endotracheal tube in place and OG tube in place Eyes PERRL, EOMs intact bilaterally and conjunctivae normal Neck supple General: trachea midline Chest Chest Narrative: Increased AP diameter Resp Auscultation: diminished lung sounds; Negative for rales, rhonchi or wheezes Cardio regular rate, regular rhythm, S1 normal heart sound and S2 normal heart sound GI normal to inspection, nondistended, normoactive bowel sounds Extremity no clubbing, cyanosis or edema Skin no rashes or lesions noted Neuro Neuro Narrative: Alert and able to follow commands appropriately. Psych Mood & Affect: anxious Charges/Coding Procedures Hospitalists Procedures: 88409 Critial Care 1st Hr
[2022-05-17 07:35] LABS: Anisocytosis 1+; Platelet Estimate SLT DEC (ADEQ)
[2022-05-17] MEDS: Amiodarone 200 MG Tablet GT (07:43)
[2022-05-17] MEDS: busPIRone 5 MG Tablet 10 MG PO ×3 (07:43→20:43)
[2022-05-17] MEDS: Loratadine 10 MG Tablet GT (07:43)
[2022-05-17] MEDS: Magnesium Chloride 64 MG Delay Rel.Tablet 128 MG PO (07:44)
[2022-05-17] MEDS: Metoprolol Tartrate 25 MG Tablet 12.5 MG GT (07:44)
[2022-05-17] MEDS: Digoxin 250 MCG Tablet GT (07:44)
[2022-05-17] MEDS: Lisinopril 2.5 MG Tablet GT (07:44)
[2022-05-17] MEDS: Potassium Chloride Oral Tablet 20 MEQ GT ×2 (07:45→16:26)
[2022-05-17] MEDS: TITRATION PARAMETER CHANGE 1 EACH IV (07:46)
[2022-05-17] MEDS: levoFLOXacin IV 750 MG/150 ML BAG 100 MG IV (09:12)
[2022-05-17] MEDS: Furosemide 20 MG/2 ML VIAL IV (09:12)
[2022-05-17] MEDS: oxyCODONE 5 MG Tablet 10 MG GT ×3 (10:16→22:10)
--- NOTE | 2022-05-17 10:55 | PCM.PN.CARD ---
Subjective Subjective Maintaining normal sinus rhythm. Objective Data Vital Signs: Vital Signs Temp Pulse Resp BP Pulse Ox O2 Del Method O2 Flow Rate 99.5 F H 71 16 139/75 H 93 Nasal Cannula 2 05/17/22 08:00 05/17/22 08:55 05/17/22 08:55 05/17/22 08:00 05/17/22 08:55 05/17/22 08:55 05/17/22 08:55 FiO2 30 05/17/22 08:00 Oxygen Flow Rate (L/min) 2 Oxygen Delivery Method Nasal Cannula Weight: 93 lb 4.089 oz Body Mass Index (BMI) 20.5 Intake & Output: Intake and Output for Last 24 Hours 05/15/22 05/16/22 05/17/22 23:59 23:59 23:59 Intake Total 2453.93 / 2520.88 2166.25 / 2243.05 615.52 / 615.52 Output Total 3450 / 3450 3000 / 3450 1025 / 1025 Balance -996.07 / -929.12 -833.75 / -1206.95 -409.48 / -409.48 Lab / Micro Data Result Diagrams: 05/17/22 04:30 05/17/22 04:30 Labs: Laboratory Results - last 24 hr 05/17/22 04:30: WBC 6.2, RBC 3.01 L, Hgb 9.0 L, Hct 29.5 L, MCV 98.0, MCH 29.9, MCHC 30.5 L, RDW Std Deviation 56.8 H, RDW Coeff of Surinder 15.9 H, Plt Count 106 L, MPV 11.8, Immature Gran % (Auto) 0.500, Neut % (Auto) 94.8 H, Lymph % (Auto) 1.5 L, [place] % (Auto) 3.2, Eos % (Auto) 0.0, Baso % (Auto) 0.0, Absolute Neuts (auto) 5.9, Absolute Lymphs (auto) 0.09 L, Nucleated RBC % 0, Platelet Estimate SLT DEC, Anisocytosis 1+ 05/17/22 04:30: Sodium 142, Potassium 3.8, Chloride 102, Carbon Dioxide 35.0 H, Anion Gap 5, BUN 37 H, Creatinine 0.57, Estim Creat Clear Calc 33.46, Est GFR (MDRD) Af Amer 134, Est GFR (MDRD) Non-Af 111, BUN/Creatinine Ratio 65.0 H, Glucose 196 H, Calcium 8.8, Phosphorus 3.0, Magnesium 2.2, Total Bilirubin 0.40, AST 73 H, ALT 91 H, Alkaline Phosphatase 103, Total Protein 5.8 L, Albumin 1.8 L, Globulin 4.0, Albumin/Globulin Ratio 0.4 L Micro: Microbiology 05/14/22 20:05 Sputum, Tracheal Aspirate Gram Stain - Final 05/14/22 20:05 Sputum, Tracheal Aspirate Respiratory Culture - Final Mixed normal respiratory mariano. No Streptococcus pneumoniae, beta-hemolytic Streptococcus or Staphylococcus aureus isolated. 05/11/22 11:50 Blood Culture (Wb) - Right Wrist Blood Culture - Final No growth in 5 days. 05/11/22 11:30 Blood Culture (Wb) #2 - Left Wrist Blood Culture - Final No growth in 5 days. Cardiology Labs/Tests 05/17/22 04:30: WBC 6.2, RBC 3.01 L, Hgb 9.0 L, Hct 29.5 L, MCV 98.0, MCH 29.9, MCHC 30.5 L, Plt Count 106 L, MPV 11.8, Immature Gran % (Auto) 0.500, Neut % (Auto) 94.8 H, Lymph % (Auto) 1.5 L, [place] % (Auto) 3.2, Eos % (Auto) 0.0, Baso % (Auto) 0.0, Absolute Neuts (auto) 5.9, Nucleated RBC % 0 05/17/22 04:30: Sodium 142, Potassium 3.8, Chloride 102, Carbon Dioxide 35.0 H, Anion Gap 5, BUN 37 H, Creatinine 0.57, Est GFR (MDRD) Af Amer 134, Est GFR (MDRD) Non-Af 111, BUN/Creatinine Ratio 65.0 H, Glucose 196 H, Calcium 8.8, Phosphorus 3.0, Magnesium 2.2, Total Bilirubin 0.40 Rhythm: EKG: ECHO: Stress Test: Cardiac Cath: PCI: CT Surgery: Holter monitor: EPS: PPM: CXR: Chest CT Scan: Physical Exam Narrative Comfortable. No distress. Heart sounds 1 and 2 noted. Chest examination shows decreased air entry bilaterally. No ankle edema. Assessment & Plan Assessment/Plan (1) Paroxysmal atrial fibrillation: PLAN: Converted to normal sinus rhythm. On amiodarone. Decrease to 200 mg once daily. Stop digoxin. Continue Eliquis but monitor hemoglobin. (2) Cardiomyopathy: PLAN: Continue lisinopril and metoprolol. Escalate doses as tolerated. (3) CAD (coronary artery disease): PLAN: History of CAD with percutaneous intervention. Stable. (4) Pneumonia: QUALIFIERS: Pneumonia type: due to Pneumococcus Laterality: right Lung location: middle lobe of lung Qualified Code(s): J13 - Pneumonia due to Streptococcus pneumoniae PLAN: As per critical care. (5) Sepsis: PLAN: As per critical care.
--- NOTE | 2022-05-17 11:00 | CASEMGMT ---
LEIGH VALENTE Follow-up: Pt resting quietly with eyes closed. LEIGH VALENTE participated in multidisciplinary rounds this AM and noted recent extubation. Will continue to monitor pt's mobility status and O2 needs for appropriate DC level of care determination. Sarath Dangelo RN CM
[2022-05-17 12:21] LABS: Bedside Glucose 108 mg/dL (74-106)
--- NOTE | 2022-05-17 13:58 | PCM.PN.HOSP ---
Objective Data Objective Data Vital Signs: Vital Signs Temp Pulse Resp BP Pulse Ox O2 Del Method O2 Flow Rate 99.2 F H 79 20 H 98/49 L 94 Nasal Cannula 3 05/17/22 12:00 05/17/22 12:00 05/17/22 12:00 05/17/22 12:00 05/17/22 12:00 05/17/22 12:00 05/17/22 12:00 FiO2 30 05/17/22 09:00 Oxygen Flow Rate (L/min) 3 Oxygen Delivery Method Nasal Cannula Weight: 42.3 kg Body Mass Index (BMI) 20.5 Intake & Output: Intake and Output for Last 24 Hours 05/15/22 05/16/22 05/17/22 23:59 23:59 23:59 Intake Total 2453.93 / 2520.88 2166.25 / 2243.05 903.61 / 903.61 Output Total 3450 / 3450 3000 / 3450 1025 / 1025 Balance -996.07 / -929.12 -833.75 / -1206.95 -121.39 / -121.39 Medical Nutrition Assessment Dietitian: Malnutrition Criteria Met Start: 05/17/22 11:27 Freq: Status: Active Protocol: Document 05/17/22 11:27 (Rec: 05/17/22 11:27 [id number]) Nutrition Malnutrition Evidence of Malnutrition Exists Yes Malnutrition (severe): Acute Illness/Injury Evidenced By Suboptimal Energy Intake ( Severe),Physical Changes ( Severe) Intake Problem Inadequate Oral Intake Etiology related to resp. failure Signs/Symptoms as evidenced by NPO status Status Active Problem Clinical Problem Chronic Disease or Condition Related Malnutrition Etiology severe, chronic malnutrition related to inadequate energy intake Signs/Symptoms as evidenced by severe muscle wasting/fat loss evident in orbital, clavicle, acromion, temporal areas per physical exam; estimated energy intake meeting <75% of estimated energy needs > 3 months Status Active Problem Recommendation Dietitian Recommendations/Changes recommend regular diet as tolerated; consult [facility] for chewing/swallowing difficulties as indicated; ensure plus high protein 120mL 4x/day w/ medpass when diet advanced. Lab / Micro Data Result Diagrams: 05/17/22 04:30 05/17/22 04:30 Labs: Laboratory Results - last 24 hr 05/17/22 04:30: WBC 6.2, RBC 3.01 L, Hgb 9.0 L, Hct 29.5 L, MCV 98.0, MCH 29.9, MCHC 30.5 L, RDW Std Deviation 56.8 H, RDW Coeff of Surinder 15.9 H, Plt Count 106 L, MPV 11.8, Immature Gran % (Auto) 0.500, Neut % (Auto) 94.8 H, Lymph % (Auto) 1.5 L, [place] % (Auto) 3.2, Eos % (Auto) 0.0, Baso % (Auto) 0.0, Absolute Neuts (auto) 5.9, Absolute Lymphs (auto) 0.09 L, Nucleated RBC % 0, Platelet Estimate SLT DEC, Anisocytosis 1+ 05/17/22 04:30: Sodium 142, Potassium 3.8, Chloride 102, Carbon Dioxide 35.0 H, Anion Gap 5, BUN 37 H, Creatinine 0.57, Estim Creat Clear Calc 33.46, Est GFR (MDRD) Af Amer 134, Est GFR (MDRD) Non-Af 111, BUN/Creatinine Ratio 65.0 H, Glucose 196 H, Calcium 8.8, Phosphorus 3.0, Magnesium 2.2, Total Bilirubin 0.40, AST 73 H, ALT 91 H, Alkaline Phosphatase 103, Total Protein 5.8 L, Albumin 1.8 L, Globulin 4.0, Albumin/Globulin Ratio 0.4 L 05/17/22 11:55: POC Glucose 108 H Micro: Microbiology 05/14/22 20:05 Sputum, Tracheal Aspirate Gram Stain - Final 05/14/22 20:05 Sputum, Tracheal Aspirate Respiratory Culture - Final Mixed normal respiratory mariano. No Streptococcus pneumoniae, beta-hemolytic Streptococcus or Staphylococcus aureus isolated. 05/11/22 11:50 Blood Culture (Wb) - Right Wrist Blood Culture - Final No growth in 5 days. 05/11/22 11:30 Blood Culture (Wb) #2 - Left Wrist Blood Culture - Final No growth in 5 days. 05/11/22 00:00 Urine Catheter - Bailey Urine Culture - Final Culture exhibits no growth. 05/11/22 19:40 Sputum, Expectorated/Coughed Gram Stain - Final 05/11/22 19:40 Sputum, Expectorated/Coughed Respiratory Culture - Final 05/11/22 21:45 Urine Catheter - Bailey Legionella Antigen - Final 05/11/22 21:45 Urine Catheter - Bailey Streptococcus pneumoniae Antigen (M - Final 05/11/22 11:21 Nasal Secretion SARS-CoV-2 & FLU Antigen (Rapid) - Final Physical Exam Const Constitutional Narrative: Older white female, thin, lying in bed intubated and sedated, appears comfortable with no signs of agitation or distress HEENT head/scalp atraumatic, moist oral mucous membranes and oropharynx normal Eyes PERRL Eyes Narrative: Pale conjunctiva bilaterally, no scleral icterus Resp Resp Narrative: Diffusely diminished Auscultation: Negative for crackles, rhonchi or wheezes Cardio regular rate, regular rhythm, S1 normal heart sound, S2 normal heart sound, no murmurs, no rub, no gallops and no clicks GI normal to inspection, nondistended, normoactive bowel sounds, soft to palpation, non-tender and non-distended GI Narrative: Scaphoid abdomen Extremity no clubbing, cyanosis or edema Extremity Narrative: 2+ pedal pulses Neuro Neuro Narrative: Moves extremities spontaneously but currently not following commands secondary to intubation/sedation Assessment & Plan Assessment/Plan (1) Cardiomyopathy: (2) SVT (supraventricular tachycardia): (3) Acute respiratory failure with hypoxia: (4) Severe protein-calorie malnutrition: (5) Pneumonia: QUALIFIERS: Pneumonia type: due to Pneumococcus Laterality: right Lung location: middle lobe of lung Qualified Code(s): J13 - Pneumonia due to Streptococcus pneumoniae (6) Anemia: QUALIFIERS: Anemia type: unspecified type Qualified Code(s): D64.9 - Anemia, unspecified PLAN: Plan Acute on chronic hypoxic respiratory failure-Multifactorial(suspected pneumonia/HFrEF/lung CA/COPD) -Slowly improving clinically -No sepsis present at all during this hospitalization -Extubated but required reintubation--> extubated again this morning -Will need bedside swallow eval status postextubation -Continue steroids -Continue bronchodilators -Continue antimicrobials -COVID and respiratory panel are negative -Continue IV Lasix as ordered -Pulmonary medicine following-appreciate input Acute decompensated heart failure with reduced ejection fraction -Newly worsened EF--> again--> recovered from 12/2021 admission on most recent echo prior to this admission -Patient now appears to be compensated -Continue Lasix IV -Continue metoprolol as ordered -Continue low-dose lisinopril -Echocardiogram from 05/12/2022 showed an EF of 35% with a mildly dilated RV, mild global right ventricular dysfunction, left atrial enlargement, mild mitral valve insufficiency, trivial pericardial effusion with no evidence of tamponade, right ventricular systolic pressure to 35 mmHg -Patient did have follow-up echo after August admission where her EF was noted to be 35% in early January that showed recovery of her EF to 60%, it appears her EF is somewhat labile -Follows with Dr. Champion at [facility] for cardiology at baseline -Cardiology is following-appreciate input AEllis steve with RVR/PAF -Patient has been in and out of A. fib during her hospital stay -Remains in normal sinus rhythm -Cardiology has decreased amiodarone to 200 mg daily -Digoxin was discontinued -Continue metoprolol -Echo as above -Patient had been on Eliquis previously however this is on hold secondary to anemia on presentation Transaminitis -Mild -May be antibiotic related with Levaquin -Repeat lab in a.m. Hyperglycemia -We will check hemoglobin A1c -Sliding scale initiated -Accu-Cheks Anemia/thrombocytopenia -Chemo is carboplatin and etoposide--> last dose 12/22/2021--> next round plan for 01/12/2022(will need to be delayed secondary to illness) -Patient has been transfused several units of packed red blood cells during her hospital course -Hemoglobin is relatively stable today at 9 from 9.3 yesterday -Fecal occult stool still pending -We will try to restart Eliquis and monitor counts closely -Platelet counts are close to baseline History of SIADH secondary to her lung CA -Sodium is normal at 141 -Continue fluid restriction at 1.25 L once p.o. has reinitiated -Continue home salt tablets -Continue on IV diuretics -BMP in a.m. Small cell lung CA -Follows with Dr. Corbett -Currently in remission CAD with history of [place] -History of stent placement -Patient is currently not on any statin -Continue home statin -Previous stents were remote at [facility] Hyperlipidemia -Continue home atorvastatin 10 mg nightly COPD/emphysema -As needed albuterol -Scheduled DuoNebs -Hold home Trelegy Ellipta and restart at discharge -Pulmonary medicine is following Severe malnutrition -Continue supplements as able -Tube feeds are at goal -Dietitian following Osteoporosis -Restart alendronate at discharge Chronic pain -Oxy IR 10 mg 3 times daily via OG -Continue scheduled morphine as ordered -Restart home medication once p.o. medication is an option GERD with history of GI bleed -Continue Protonix IV daily -Continue Carafate Anxiety -BuSpar added twice daily DVT prophylaxis -SCDs -Chemoprophylaxis on hold secondary to thrombocytopenia and anemia CODE STATUS -Full code Charges/Coding Visit Charges Inpatient E&M: 68318 Subs Hosp L2
[2022-05-17 18:36] LABS: Bedside Glucose 125 mg/dL (74-106)
[2022-05-17] MEDS: Atorvastatin Calcium 10 MG Tablet GT (20:43)
[2022-05-17] MEDS: APIXABAN 5 MG TABLET PO (20:44)
[2022-05-17] MEDS: morphine SR 15 MG Tablet PO (20:44)
[2022-05-18] VITALS (23 sets, daily range): BP systolic 98–140; BP diastolic 44–74; PULSE 62–120; RESP 14–20; TEMP 36.4–37.2; O2SAT 92–99
[2022-05-18 00:05] LABS: Bedside Glucose 129 mg/dL (74-106)
[2022-05-18] MEDS: Ipratropium/Albuterol Sulfate 3 ML AMPUL.NEB INHALATION ×5 (02:11→23:02)
[2022-05-18] MEDS: Senna/Docusate Sodium 1 Tablet 2 TABLET GT ×2 (02:21→09:02)
[2022-05-18 02:46] LABS: Absolute Lymphocyte Count 0.18 X10^3/uL (0.83-4.51); Absolute Neutrophil Count 7.1 X10^3/uL (2.0-7.7); Hematocrit 29.4 % (37-47); Hemoglobin 8.9 g/dL (12.0-15.0); Lymphocyte # 0.18 X10^3/ul (0.83-4.51); Lymphocyte % 2.4 % (19-41); Mean Corp Hgb Conc 30.3 g/dL (32-36); Mean Corpuscular Hgb 29.3 pg (27.0-32.0); Mean Corpuscular Volume 96.7 fL (81-99); Mean Platelet Vol. 11.7 fl (6.2-12.0); Monocyte# 0.18 X10^3/uL; Monocyte% 2.4 % (0-10); NRBC Flagged by Analyzer 0 % (0-5); Neutrophil # 7.14 X10^3/uL (2.7-7.7); Neutrophil % 94.5 % (47-70); POSITIVE COUNT YES; POSITIVE DIFFERENTIAL YES; Platelet Count 89 K/mm3 (150-450); RBC Distribution Width CV 15.5 % (11.6-14.6); RBC Distribution Width SD 54.3 fl (35.1-43.9); Red Blood Count 3.04 M/mm3 (4.2-5.4); White Blood Count 7.6 K/mm3 (4.4-11.0)
[2022-05-18 02:47] LABS: Differential Indicated SCAN CRITERIA MET
[2022-05-18 03:03] LABS: ALB/GLOB Ratio 0.5 RATIO (0.9-2.4); AST(SGOT) 50 U/L (15-37); Alanine Aminotransfer ALT/SGPT 78 U/L (13-56); Alkaline Phosphatase 93 U/L (45-117); Anion Gap 5 (5-15); BUN 34 mg/dL (7-18); BUN/Creat Ratio 60.5 RATIO (10-20); Calcium,Total 8.6 mg/dL (8.5-10.1); Chloride 98 mmol/L (98-107); Creatinine, Serum 0.56 mg/dL (0.55-1.02); EST Glomerular Filtration Rate 112 mL/min (>60); Est Glom Filt Rate - Afr Amer 136 mL/min (>60); Estimated Creatinine Clearance 33.46 ml/min; Globulin 3.7 g/dL (2.2-4.2); Glucose 133 mg/dL (74-106); Protein, Total 5.7 g/dL (6.4-8.2); Sodium Level 137 mmol/L (136-145)
[2022-05-18 03:53] LABS: Anisocytosis 1+; Platelet Estimate MOD DEC (ADEQ)
[2022-05-18] MEDS: oxyCODONE 5 MG Tablet 10 MG GT (06:02)
[2022-05-18] MEDS: Sodium Chloride 1 GM Tablet PO ×3 (06:03→22:00)
[2022-05-18] MEDS: 0.9% Saline Lock 10 ML Syringe IV ×2 (06:06→19:36)
[2022-05-18 07:06] LABS: Bedside Glucose 101 mg/dL (74-106)
--- NOTE | 2022-05-18 07:17 | PCM.PN.INT ---
Assessment & Plan Assessment/Plan (1) Acute respiratory failure with hypoxia: (2) Pneumonia: QUALIFIERS: Laterality: right Lung location: middle lobe of lung Pneumonia type: due to Pneumococcus Qualified Code(s): J13 - Pneumonia due to Streptococcus pneumoniae (3) History of lung cancer: (4) Severe protein-calorie malnutrition: PLAN: Plan RECOMMENDATIONS: 1. Continue to wean supplemental oxygen as tolerated. 2. Continue antimicrobials to complete 7 days of therapy. 3. Continue diuretics as tolerated by hemodynamics and renal function. 4. Continue scheduled BuSpar twice daily to address underlying anxiety. 5. Continue to monitor H&H daily. Transfuse if hemoglobin drops below 7 g/dL. 6. Continue scheduled bronchodilators and IV steroids. 7. Continue PPI therapy. 8. Encourage incentive spirometer use and mobilize patient as tolerated. 9. The patient is medically stable for transfer out of the intensive care unit. IMPRESSIONS: 1.??Acute hypoxic respiratory failure in the setting of COPD and history of small cell lung cancer The patient presented with an acute COPD exacerbation which appears to be secondary to a right upper lobe infiltrate. The patient has slowly improved from a respiratory perspective. She remains on appropriate antimicrobials, scheduled bronchodilators and steroids. Although the patient was able to be extubated on 05/14, she decompensated from a respiratory perspective approximately 12 hours later and had to be reintubated. Clinical concern that the patient's underlying anemia and anxiety may have contributed to her decompensation. With further volume optimization and stabilization of her anemia status, the patient was able to be extubated once again on May 17. She is doing well from a respiratory perspective on her baseline 3 L/min oxygen requirement. Plan to continue scheduled anxiolytics and pain medications, per home regimen. 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 The patient will be continued on appropriate PPI therapy. There are no overt signs of blood loss. If the patient remains anemic, I would recommend consultation to gastroenterology. 3.??Cardiomyopathy/paroxysmal A. fib/SVT Continue medical management per cardiology recommendations. 4.??Chronic pain syndrome/osteoporosis/GERD with history of GI bleed/CAD/debility Complicates care, management, recovery and prognosis.? Continue supportive measures as noted above. Physical therapy to work with the patient. This note was generated with [employer]ke dictation software. It may contain incorrect words, spelling, and punctuation that were not noted in checking the note before signing. Subjective Subjective The patient was seen and examined at the bedside this morning. Events from the last 24 hours have been reviewed. The patient is currently afebrile, hemodynamically stable and maintaining appropriate oxygen saturations on her baseline 3 L/min oxygen requirement. She is currently receiving an aerosol treatment, but does report residual shortness of breath. The patient was started on scheduled BuSpar yesterday and her home pain medication regimen was resumed. Precedex has been discontinued. Platelet count remains low at 89,000. Hemoglobin is stable. Objective Data Objective Data The patient's most recent lab work, culture data and imaging studies have all been personally reviewed. Surface echocardiogram demonstrated normal LV size with moderate global LV systolic dysfunction and an ejection fraction of 35%. Vital Signs: Vital Signs Temp Pulse Resp BP Pulse Ox O2 Del Method O2 Flow Rate 98.2 F 84 14 128/74 H 94 Nasal Cannula 3 05/18/22 06:00 05/18/22 06:47 05/18/22 06:47 05/18/22 06:00 05/18/22 06:47 05/18/22 06:47 05/18/22 06:47 FiO2 30 05/17/22 09:00 Oxygen Flow Rate (L/min) 3 Oxygen Delivery Method Nasal Cannula Weight: 90 lb 9.76 oz Body Mass Index (BMI) 20.5 Intake & Output: Intake and Output for Last 24 Hours 05/16/22 05/17/22 05/18/22 23:59 23:59 23:59 Intake Total 2166.25 / 2243.05 1053.52 / 1054.85 7.71 / 7.71 Output Total 3000 / 3450 2200 / 2350 500 / 500 Balance -833.75 / -1206.95 -1146.48 / -1295.15 -492.29 / -492.29 Medical Nutrition Assessment Dietitian: Malnutrition Criteria Met Start: 05/17/22 11:27 Freq: Status: Active Protocol: Document 05/17/22 11:27 (Rec: 05/17/22 11:27 [id number]) Nutrition Malnutrition Evidence of Malnutrition Exists Yes Malnutrition (severe): Acute Illness/Injury Evidenced By Suboptimal Energy Intake ( Severe),Physical Changes ( Severe) Intake Problem Inadequate Oral Intake Etiology related to resp. failure Signs/Symptoms as evidenced by NPO status Status Active Problem Clinical Problem Chronic Disease or Condition Related Malnutrition Etiology severe, chronic malnutrition related to inadequate energy intake Signs/Symptoms as evidenced by severe muscle wasting/fat loss evident in orbital, clavicle, acromion, temporal areas per physical exam; estimated energy intake meeting <75% of estimated energy needs > 3 months Status Active Problem Recommendation Dietitian Recommendations/Changes recommend regular diet as tolerated; consult FILM PROCESSING SHIFT SUPERVISOR for chewing/swallowing difficulties as indicated; ensure plus high protein 120mL 4x/day w/ medpass when diet advanced. Lab / Micro Data Attestation: I reviewed the patient's lab results. Result Diagrams: 05/18/22 02:35 05/18/22 02:35 Labs: Laboratory Results - last 24 hr 05/17/22 04:30: Platelet Estimate SLT DEC, Anisocytosis 1+ 05/17/22 11:55: POC Glucose 108 H 05/17/22 18:08: POC Glucose 125 H 05/17/22 23:16: POC Glucose 129 H 05/18/22 02:35: WBC 7.6, RBC 3.04 L, Hgb 8.9 L, Hct 29.4 L, MCV 96.7, MCH 29.3, MCHC 30.3 L, RDW Std Deviation 54.3 H, RDW Coeff of Surinder 15.5 H, Plt Count 89 L, MPV 11.7, Immature Gran % (Auto) 0.700, Neut % (Auto) 94.5 H, Lymph % (Auto) 2.4 L, [place] % (Auto) 2.4, Eos % (Auto) 0.0, Baso % (Auto) 0.0, Absolute Neuts (auto) 7.1, Absolute Lymphs (auto) 0.18 L, Nucleated RBC % 0, Platelet Estimate MOD DEC, Anisocytosis 1+ 05/18/22 02:35: Sodium 137, Potassium 4.0, Chloride 98, Carbon Dioxide 34.0 H, Anion Gap 5, BUN 34 H, Creatinine 0.56, Estim Creat Clear Calc 33.46, Est GFR (MDRD) Af Amer 136, Est GFR (MDRD) Non-Af 112, BUN/Creatinine Ratio 60.5 H, Glucose 133 H, Calcium 8.6, Total Bilirubin 0.60, AST 50 H, ALT 78 H, Alkaline Phosphatase 93, Total Protein 5.7 L, Albumin 2.0 L, Globulin 3.7, Albumin/Globulin Ratio 0.5 L 05/18/22 02:35: Hemoglobin A1c 6.0 H 05/18/22 06:08: POC Glucose 101 Micro: Microbiology 05/14/22 20:05 Sputum, Tracheal Aspirate Gram Stain - Final 05/14/22 20:05 Sputum, Tracheal Aspirate Respiratory Culture - Final Mixed normal respiratory mariano. No Streptococcus pneumoniae, beta-hemolytic Streptococcus or Staphylococcus aureus isolated. 05/11/22 11:50 Blood Culture (Wb) - Right Wrist Blood Culture - Final No growth in 5 days. 05/11/22 11:30 Blood Culture (Wb) #2 - Left Wrist Blood Culture - Final No growth in 5 days. 05/11/22 00:00 Urine Catheter - Bailey Urine Culture - Final Culture exhibits no growth. 05/11/22 19:40 Sputum, Expectorated/Coughed Gram Stain - Final 05/11/22 19:40 Sputum, Expectorated/Coughed Respiratory Culture - Final 05/11/22 21:45 Urine Catheter - Bailey Legionella Antigen - Final 05/11/22 21:45 Urine Catheter - Bailey Streptococcus pneumoniae Antigen (M - Final 05/11/22 11:21 Nasal Secretion SARS-CoV-2 & FLU Antigen (Rapid) - Final ABG Data ABG results: ABG 05/14/22 05/14/22 18:35 20:57 Specimen Type ART ART Sample Site L Radial pH 7.12 L* Bicarbonate Actual 20.8 L Total CO2 23 Base Excess -8 L O2 Saturation 99 O2 % 75 ABG pCO2 63.6 H ABG pO2 160 H VBG pH 7.35 VBG pO2 39 VBG HCO3 21 L VBG Total CO2 23 VBG O2 Sat (Calc) 71 H VBG Base Excess -4 L POC Mix VBG pCO2 Pt Tmp 38.9 L Respiration Rate 14 12 O2 Delivery Device BiPAP ET Tube Vent Mode avaps Tidal Volume 450 POC PEEP 10 5 Crit Call To/Read Back Yes Radiography Diagnostic Testing: Radiology Impression Chest X-Ray 05/15/22 16:40 IMPRESSION: No change in the appearance of the chest from reference examination. Support structures in good position. Electronically Signed: Hang La MD at 17:57 EST , Chest X-Ray 05/15/22 16:49 IMPRESSION: No change in the appearance of the chest from the reference exam. Support structures in stable position. Electronically Signed: Hang La MD at 17:58 EST , Physical Exam Const alert and no apparent distress General Appearance: cooperative Nutritional Appearance: thin HEENT normocephalic, head/scalp atraumatic and moist oral mucous membranes Eyes PERRL, EOMs intact bilaterally and conjunctivae normal Neck supple General: trachea midline Chest Chest Narrative: Increased AP diameter Resp Resp Narrative: Currently receiving an aerosol treatment. Auscultation: diminished lung sounds; Negative for rales, rhonchi or wheezes Cardio regular rate, regular rhythm, S1 normal heart sound and S2 normal heart sound GI normal to inspection, nondistended, normoactive bowel sounds Extremity no clubbing, cyanosis or edema Skin no rashes or lesions noted Neuro CN's II-XII intact bilaterally, moves all extremities and no focal motor deficits Psych Mood & Affect: anxious Charges/Coding Visit Charges Inpatient E&M: 88295 Subs Hosp L3
[2022-05-18] MEDS: Potassium Chloride Oral Tablet 20 MEQ GT (09:01)
[2022-05-18] MEDS: morphine SR 15 MG Tablet PO ×2 (09:01→22:03)
[2022-05-18] MEDS: busPIRone 5 MG Tablet 10 MG PO ×2 (09:02→22:03)
[2022-05-18] MEDS: Magnesium Chloride 64 MG Delay Rel.Tablet 128 MG PO (09:02)
[2022-05-18] MEDS: Metoprolol Tartrate 25 MG Tablet 12.5 MG GT (09:02)
[2022-05-18] MEDS: Lisinopril 2.5 MG Tablet GT (09:03)
[2022-05-18] MEDS: Amiodarone 200 MG Tablet GT (09:03)
[2022-05-18] MEDS: Furosemide 20 MG/2 ML VIAL IV (09:03)
[2022-05-18] MEDS: APIXABAN 5 MG TABLET PO ×2 (09:03→22:03)
[2022-05-18] MEDS: Loratadine 10 MG Tablet GT (09:03)
[2022-05-18] MEDS: LORazepam 0.5 MG Tablet 0.25 MG PO (10:01)
[2022-05-18 11:41] LABS: Bedside Glucose 110 mg/dL (74-106)
--- NOTE | 2022-05-18 11:52 | PN.CARD_ITS ---
Subjective Subjective Complains of shortness of breath. Objective Data Vital Signs: Vital Signs Temp Pulse Resp BP Pulse Ox O2 Del Method O2 Flow Rate 98.9 F 83 14 140/71 H 94 Nasal Cannula 3 05/18/22 09:00 05/18/22 10:49 05/18/22 10:49 05/18/22 09:00 05/18/22 09:00 05/18/22 09:00 05/18/22 09:00 FiO2 30 05/17/22 09:00 Oxygen Flow Rate (L/min) 3 Oxygen Delivery Method Nasal Cannula Weight: 90 lb 9.76 oz Body Mass Index (BMI) 20.5 Intake & Output: Intake and Output for Last 24 Hours 05/16/22 05/17/22 05/18/22 23:59 23:59 23:59 Intake Total 2166.25 / 2243.05 1053.52 / 1054.85 117.71 / 117.71 Output Total 3000 / 3450 2200 / 2350 500 / 500 Balance -833.75 / -1206.95 -1146.48 / -1295.15 -382.29 / -382.29 Lab / Micro Data Result Diagrams: 05/18/22 02:35 05/18/22 02:35 Labs: Laboratory Results - last 24 hr 05/17/22 11:55: POC Glucose 108 H 05/17/22 18:08: POC Glucose 125 H 05/17/22 23:16: POC Glucose 129 H 05/18/22 02:35: WBC 7.6, RBC 3.04 L, Hgb 8.9 L, Hct 29.4 L, MCV 96.7, MCH 29.3, MCHC 30.3 L, RDW Std Deviation 54.3 H, RDW Coeff of Surinder 15.5 H, Plt Count 89 L, MPV 11.7, Immature Gran % (Auto) 0.700, Neut % (Auto) 94.5 H, Lymph % (Auto) 2.4 L, [place] % (Auto) 2.4, Eos % (Auto) 0.0, Baso % (Auto) 0.0, Absolute Neuts (auto) 7.1, Absolute Lymphs (auto) 0.18 L, Nucleated RBC % 0, Platelet Estimate MOD DEC, Anisocytosis 1+ 05/18/22 02:35: Sodium 137, Potassium 4.0, Chloride 98, Carbon Dioxide 34.0 H, Anion Gap 5, BUN 34 H, Creatinine 0.56, Estim Creat Clear Calc 33.46, Est GFR (MDRD) Af Amer 136, Est GFR (MDRD) Non-Af 112, BUN/Creatinine Ratio 60.5 H, Glucose 133 H, Calcium 8.6, Total Bilirubin 0.60, AST 50 H, ALT 78 H, Alkaline Phosphatase 93, Total Protein 5.7 L, Albumin 2.0 L, Globulin 3.7, Albumin/Globulin Ratio 0.5 L 05/18/22 02:35: Hemoglobin A1c 6.0 H 05/18/22 06:08: POC Glucose 101 05/18/22 10:57: POC Glucose 110 H Micro: Microbiology 05/14/22 20:05 Sputum, Tracheal Aspirate Gram Stain - Final 05/14/22 20:05 Sputum, Tracheal Aspirate Respiratory Culture - Final Mixed normal respiratory mariano. No Streptococcus pneumoniae, beta-hemolytic Streptococcus or Staphylococcus aureus isolated. Cardiology Labs/Tests 05/18/22 02:35: WBC 7.6, RBC 3.04 L, Hgb 8.9 L, Hct 29.4 L, MCV 96.7, MCH 29.3, MCHC 30.3 L, Plt Count 89 L, MPV 11.7, Immature Gran % (Auto) 0.700, Neut % (Auto) 94.5 H, Lymph % (Auto) 2.4 L, [place] % (Auto) 2.4, Eos % (Auto) 0.0, Baso % (Auto) 0.0, Absolute Neuts (auto) 7.1, Nucleated RBC % 0 05/18/22 02:35: Sodium 137, Potassium 4.0, Chloride 98, Carbon Dioxide 34.0 H, Anion Gap 5, BUN 34 H, Creatinine 0.56, Est GFR (MDRD) Af Amer 136, Est GFR (MDRD) Non-Af 112, BUN/Creatinine Ratio 60.5 H, Glucose 133 H, Calcium 8.6, Total Bilirubin 0.60 05/18/22 02:35: Hemoglobin A1c 6.0 H Rhythm: EKG: ECHO: Stress Test: Cardiac Cath: PCI: CT Surgery: Holter monitor: EPS: PPM: CXR: Chest CT Scan: Physical Exam Narrative See thing up in chair. No apparent distress. Cachectic appearing. Heart sounds 1 and 2 noted. Diminished lung sounds bilaterally. Alert oriented x3. Assessment & Plan Assessment/Plan (1) Paroxysmal atrial fibrillation: PLAN: Converted to normal sinus rhythm. On amiodarone. Continue Eliquis but monitor hemoglobin. (2) Cardiomyopathy: PLAN: EF decreased likely secondary to underlying sepsis with pneumonia. Continue lisinopril and metoprolol. Escalate doses as tolerated. (3) CAD (coronary artery disease): PLAN: History of CAD with percutaneous intervention. Stable. (4) Pneumonia: QUALIFIERS: Pneumonia type: due to Pneumococcus Laterality: right Lung location: middle lobe of lung Qualified Code(s): J13 - Pneumonia due to Streptococcus pneumoniae PLAN: As per critical care. (5) Sepsis: PLAN: As per critical care. PLAN: Plan Will see patient on an as-needed basis. Please call if needed.
[2022-05-18] MEDS: RisperiDONE 1 MG Tablet PO ×2 (13:14→22:03)
--- NOTE | 2022-05-18 15:05 | PCM.PN.HOSP ---
Subjective Subjective Overall states she is feeling better however reports that she did not sleep last night and is having considerable anxiety. We did trial some Ativan however this was counterproductive and seems to make her worse. She was given some Risperdal and will try a repeat dose this evening to help with sleep as well. I did discuss with her her baseline anxiety and she indicates she is not anxious at home however I have seen her previously and she has had significant anxiety issues. I did recommend she follow-up with psychiatry as an outpatient and she seemed resistant. We have also started BuSpar during her hospital course. She is just about completed her antibiotics and this morning was on her baseline 3 L nasal cannula. I did discuss with her the possibility of discharge depending on her oral intake and stability throughout the day today. Objective Data Objective Data Vital Signs: Vital Signs Temp Pulse Resp BP Pulse Ox O2 Del Method O2 Flow Rate 97.5 F L 90 20 H 127/55 H 93 Nasal Cannula 4 05/18/22 12:00 05/18/22 12:16 05/18/22 12:00 05/18/22 12:00 05/18/22 12:00 05/18/22 13:55 05/18/22 13:55 FiO2 30 05/17/22 09:00 Oxygen Flow Rate (L/min) 4 Oxygen Delivery Method Nasal Cannula Weight: 41.1 kg Body Mass Index (BMI) 20.5 Intake & Output: Intake and Output for Last 24 Hours 05/16/22 05/17/22 05/18/22 23:59 23:59 23:59 Intake Total 2166.25 / 2243.05 1053.52 / 1054.85 117.71 / 117.71 Output Total 3000 / 3450 2200 / 2350 1750 / 1750 Balance -833.75 / -1206.95 -1146.48 / -1295.15 -1632.29 / -1632.29 Medical Nutrition Assessment Dietitian: Malnutrition Criteria Met Start: 05/17/22 11:27 Freq: Status: Active Protocol: Document 05/17/22 11:27 (Rec: 05/17/22 11:27 [id number]) Nutrition Malnutrition Evidence of Malnutrition Exists Yes Malnutrition (severe): Acute Illness/Injury Evidenced By Suboptimal Energy Intake ( Severe),Physical Changes ( Severe) Intake Problem Inadequate Oral Intake Etiology related to resp. failure Signs/Symptoms as evidenced by NPO status Status Active Problem Clinical Problem Chronic Disease or Condition Related Malnutrition Etiology severe, chronic malnutrition related to inadequate energy intake Signs/Symptoms as evidenced by severe muscle wasting/fat loss evident in orbital, clavicle, acromion, temporal areas per physical exam; estimated energy intake meeting <75% of estimated energy needs > 3 months Status Active Problem Recommendation Dietitian Recommendations/Changes recommend regular diet as tolerated; consult CABINET FINISHER for chewing/swallowing difficulties as indicated; ensure plus high protein 120mL 4x/day w/ medpass when diet advanced. Lab / Micro Data Result Diagrams: 05/18/22 02:35 05/18/22 02:35 Labs: Laboratory Results - last 24 hr 05/17/22 18:08: POC Glucose 125 H 05/17/22 23:16: POC Glucose 129 H 05/18/22 02:35: WBC 7.6, RBC 3.04 L, Hgb 8.9 L, Hct 29.4 L, MCV 96.7, MCH 29.3, MCHC 30.3 L, RDW Std Deviation 54.3 H, RDW Coeff of Surinder 15.5 H, Plt Count 89 L, MPV 11.7, Immature Gran % (Auto) 0.700, Neut % (Auto) 94.5 H, Lymph % (Auto) 2.4 L, [place] % (Auto) 2.4, Eos % (Auto) 0.0, Baso % (Auto) 0.0, Absolute Neuts (auto) 7.1, Absolute Lymphs (auto) 0.18 L, Nucleated RBC % 0, Platelet Estimate MOD DEC, Anisocytosis 1+ 05/18/22 02:35: Sodium 137, Potassium 4.0, Chloride 98, Carbon Dioxide 34.0 H, Anion Gap 5, BUN 34 H, Creatinine 0.56, Estim Creat Clear Calc 33.46, Est GFR (MDRD) Af Amer 136, Est GFR (MDRD) Non-Af 112, BUN/Creatinine Ratio 60.5 H, Glucose 133 H, Calcium 8.6, Total Bilirubin 0.60, AST 50 H, ALT 78 H, Alkaline Phosphatase 93, Total Protein 5.7 L, Albumin 2.0 L, Globulin 3.7, Albumin/Globulin Ratio 0.5 L 05/18/22 02:35: Hemoglobin A1c 6.0 H 05/18/22 06:08: POC Glucose 101 05/18/22 10:57: POC Glucose 110 H Micro: Microbiology 05/14/22 20:05 Sputum, Tracheal Aspirate Gram Stain - Final 05/14/22 20:05 Sputum, Tracheal Aspirate Respiratory Culture - Final Mixed normal respiratory mariano. No Streptococcus pneumoniae, beta-hemolytic Streptococcus or Staphylococcus aureus isolated. 05/11/22 11:50 Blood Culture (Wb) - Right Wrist Blood Culture - Final No growth in 5 days. 05/11/22 11:30 Blood Culture (Wb) #2 - Left Wrist Blood Culture - Final No growth in 5 days. 05/11/22 00:00 Urine Catheter - Bailey Urine Culture - Final Culture exhibits no growth. 05/11/22 19:40 Sputum, Expectorated/Coughed Gram Stain - Final 05/11/22 19:40 Sputum, Expectorated/Coughed Respiratory Culture - Final 05/11/22 21:45 Urine Catheter - Bailey Legionella Antigen - Final 05/11/22 21:45 Urine Catheter - Bailey Streptococcus pneumoniae Antigen (M - Final 05/11/22 11:21 Nasal Secretion SARS-CoV-2 & FLU Antigen (Rapid) - Final Physical Exam Const alert and oriented x3 Constitutional Narrative: Anxious older white female, thin, sitting up in chair at the bedside, appears mildly anxious at this time, nontoxic, nursing at bedside HEENT head/scalp atraumatic, moist oral mucous membranes and oropharynx normal HEENT Narrative: Edentulous with dentures in place, Mallampati 1, no thrush Resp Resp Narrative: Severely diminished diffusely Auscultation: Negative for crackles, rhonchi or wheezes Cardio regular rate, regular rhythm, S1 normal heart sound, S2 normal heart sound, no murmurs, no rub, no gallops and no clicks GI normal to inspection, nondistended, normoactive bowel sounds, soft to palpation and non-tender GI Narrative: Scaphoid abdomen Extremity no clubbing, cyanosis or edema Extremity Narrative: 2+ pedal pulses Neuro oriented x3, moves all extremities and no focal motor deficits Speech: speech normal Psych Psych Narrative: Appropriately interactive Mood & Affect: anxious Assessment & Plan Assessment/Plan (1) Cardiomyopathy: (2) SVT (supraventricular tachycardia): (3) Acute respiratory failure with hypoxia: (4) Severe protein-calorie malnutrition: (5) Pneumonia: QUALIFIERS: Pneumonia type: due to Pneumococcus Laterality: right Lung location: middle lobe of lung Qualified Code(s): J13 - Pneumonia due to Streptococcus pneumoniae (6) Anemia: QUALIFIERS: Anemia type: unspecified type Qualified Code(s): D64.9 - Anemia, unspecified PLAN: Plan Acute on chronic hypoxic respiratory failure-Multifactorial(suspected pneumonia/HFrEF/lung CA/COPD) -Slowly improving clinically -No sepsis present at all during this hospitalization -Patient now on baseline 3 L nasal cannula -Continue to monitor and if she remains on this consider discharge tomorrow -Continue steroids -Continue bronchodilators -Continue antimicrobials--> day 7 of 7 today -COVID and respiratory panel are negative -Continue IV Lasix as ordered -Pulmonary medicine following-appreciate input Compensated heart failure with reduced ejection fraction -Newly worsened EF--> again--> recovered from 12/2021 admission on most recent echo prior to this admission -Was decompensated during this hospital course but now compensated -Continue Lasix IV -Continue metoprolol as ordered -Continue low-dose lisinopril -Echocardiogram from 05/12/2022 showed an EF of 35% with a mildly dilated RV, mild global right ventricular dysfunction, left atrial enlargement, mild mitral valve insufficiency, trivial pericardial effusion with no evidence of tamponade, right ventricular systolic pressure to 35 mmHg -Patient did have follow-up echo after August admission where her EF was noted to be 35% in early January that showed recovery of her EF to 60%, it appears her EF is somewhat labile -Follows with Dr. [facility] at [facility] for cardiology at baseline -Cardiology is following-appreciate input Josie steve with RVR/PAF -Patient has been in and out of A. fib during her hospital stay -Remains in normal sinus rhythm -Cardiology has decreased amiodarone to 200 mg daily -Continue metoprolol -Echo as above -Patient had been on Eliquis previously however this is on hold secondary to anemia on presentation Transaminitis -Mild -May be antibiotic related with Levaquin -Improving -Repeat lab in a.m. Insulin resistance -Hemoglobin A1c is 6.0 -Patient with insulin resistance and likely elevated hemoglobin secondary to acute stress and steroids -Sliding scale initiated -Accu-Cheks Anemia/thrombocytopenia -Stable despite reinitiation of Eliquis -Patient has been transfused several units of packed red blood cells during her hospital course -Fecal occult stool still pending -Continue Eliquis -Platelet count down a bit today -Repeat in a.m. -May be antibiotic related and antibiotics were completed today History of SIADH secondary to her lung CA -Sodium is normal at 137 -Continue fluid restriction at 1.25 L once p.o. has reinitiated -Continue home salt tablets -Continue on IV diuretics -BMP in a.m. Small cell lung CA -Follows with Dr. Corbett -Currently in remission CAD with history of CO -History of stent placement -Patient is currently not on any statin -Continue home statin -Previous stents were remote at [facility] Hyperlipidemia -Continue home atorvastatin 10 mg nightly COPD/emphysema -As needed albuterol -Scheduled DuoNebs -Hold home Trelegy Ellipta and restart at discharge -Pulmonary medicine is following Severe malnutrition -Continue supplements -Encourage p.o. intake with liberal diet -Dietitian following Osteoporosis -Restart alendronate at discharge Chronic pain -Oxy IR 10 mg 3 times daily via OG -Continue scheduled morphine as ordered GERD with history of GI bleed -Restart p.o. Protonix 40 twice daily -Continue Carafate Anxiety -Continue added BuSpar -Ativan made symptoms worse -Start Risperdal 1 mg p.o. twice daily -Encouraged outpatient psychiatry follow-up for anxiety and patient is resistant--> we will make referral discharge DVT prophylaxis -SCDs -Chemoprophylaxis on hold secondary to thrombocytopenia and anemia CODE STATUS -Full code Charges/Coding Visit Charges Inpatient E&M: 69341 Subs Hosp L2
[2022-05-18] MEDS: Potassium Chloride Oral Tablet 20 MEQ PO (17:21)
[2022-05-18] MEDS: Acetaminophen 650 MG/20 ML UDC PO (18:41)
[2022-05-18] MEDS: oxyCODONE 5 MG Tablet 10 MG PO ×2 (18:41→23:14)
[2022-05-18 19:06] LABS: Bedside Glucose 128 mg/dL (74-106)
[2022-05-18] MEDS: Ondansetron 4 MG/2 ML Vial IV (19:36)
[2022-05-18] MEDS: Atorvastatin Calcium 10 MG Tablet PO (22:00)
[2022-05-18] MEDS: Metoprolol Tartrate 25 MG Tablet 12.5 MG PO (22:00)
[2022-05-18] MEDS: Pantoprazole Sodium 40 MG Tablet PO (22:00)
[2022-05-18 23:35] LABS: Bedside Glucose 141 mg/dL (74-106)
[2022-05-19] VITALS (43 sets, daily range): BP systolic 71–116; BP diastolic 35–73; PULSE 74–108; RESP 13–21; TEMP 36.1–37.2; O2SAT 67–97
--- NOTE | 2022-05-19 00:29 | CPS ---
Pt refused PEP therapy along with breathing tx at 1924, due to abdominal pain.
[2022-05-19] MEDS: 0.9% Saline Lock 10 ML Syringe IV ×2 (04:59→23:18)
[2022-05-19] MEDS: Sodium Chloride 1 GM Tablet PO ×3 (04:59→20:52)
[2022-05-19 05:15] LABS: Absolute Lymphocyte Count 0.12 X10^3/uL (0.83-4.51); Absolute Neutrophil Count 12.5 X10^3/uL (2.0-7.7); Basophil# 0.02 X10^3/uL; Basophil% 0.2 % (0-1); Differential Indicated SCAN CRITERIA MET; Eosinophil# 0.01 X10^3/uL; Eosinophils% 0.1 % (0-5); Hematocrit 28.2 % (37-47); Hemoglobin 9.2 g/dL (12.0-15.0); Lymphocyte # 0.12 X10^3/ul (0.83-4.51); Lymphocyte % 0.9 % (19-41); Mean Corp Hgb Conc 32.6 g/dL (32-36); Mean Corpuscular Hgb 31.3 pg (27.0-32.0); Mean Corpuscular Volume 95.9 fL (81-99); Mean Platelet Vol. 12.2 fl (6.2-12.0); Monocyte# 0.28 X10^3/uL; Monocyte% 2.2 % (0-10); NRBC Flagged by Analyzer 0 % (0-5); Neutrophil # 12.51 X10^3/uL (2.7-7.7); Neutrophil % 96.2 % (47-70); POSITIVE COUNT YES; POSITIVE DIFFERENTIAL YES; Platelet Count 96 K/mm3 (150-450); RBC Distribution Width CV 15.9 % (11.6-14.6); RBC Distribution Width SD 55.2 fl (35.1-43.9); Red Blood Count 2.94 M/mm3 (4.2-5.4)
[2022-05-19 05:27] LABS: ALB/GLOB Ratio 0.5 RATIO (0.9-2.4); AST(SGOT) 230 U/L (15-37); Alanine Aminotransfer ALT/SGPT 165 U/L (13-56); Albumin, Serum 1.9 g/dL (3.2-5.0); Alkaline Phosphatase 112 U/L (45-117); Anion Gap 2 (5-15); BUN 36 mg/dL (7-18); BUN/Creat Ratio 58.4 RATIO (10-20); Calcium,Total 8.7 mg/dL (8.5-10.1); Chloride 101 mmol/L (98-107); Creatinine, Serum 0.62 mg/dL (0.55-1.02); EST Glomerular Filtration Rate 101 mL/min (>60); Est Glom Filt Rate - Afr Amer 122 mL/min (>60); Estimated Creatinine Clearance 32.75 ml/min; Globulin 3.7 g/dL (2.2-4.2); Glucose 107 mg/dL (74-106); Potassium 3.9 mmol/L (3.5-5.1); Protein, Total 5.6 g/dL (6.4-8.2); Sodium Level 137 mmol/L (136-145)
[2022-05-19 06:15] LABS: Anisocytosis 1+; Platelet Estimate MOD DEC (ADEQ)
[2022-05-19] MEDS: Ipratropium/Albuterol Sulfate 3 ML AMPUL.NEB INHALATION ×3 (07:06→22:59)
[2022-05-19] MEDS: Potassium Chloride Oral Tablet 20 MEQ PO (08:36)
[2022-05-19] MEDS: busPIRone 5 MG Tablet 10 MG PO ×2 (08:36→20:51)
[2022-05-19] MEDS: APIXABAN 5 MG TABLET PO ×2 (08:37→20:52)
[2022-05-19] MEDS: Amiodarone 200 MG Tablet PO (08:37)
[2022-05-19] MEDS: Pantoprazole Sodium 40 MG Tablet PO ×2 (08:37→20:52)
[2022-05-19] MEDS: Magnesium Chloride 64 MG Delay Rel.Tablet 128 MG PO (08:37)
[2022-05-19] MEDS: Loratadine 10 MG Tablet PO (08:38)
[2022-05-19] MEDS: Metoprolol Tartrate 25 MG Tablet 12.5 MG PO (08:39)
[2022-05-19] MEDS: Lisinopril 2.5 MG Tablet PO (08:43)
[2022-05-19] MEDS: morphine SR 15 MG Tablet PO ×2 (08:48→23:18)
[2022-05-19] MEDS: CHLORHEXIDINE GLUC 2% CLOTH 1 EACH TOWELETTE TOPICAL (08:48)
[2022-05-19] MEDS: oxyCODONE 5 MG Tablet 10 MG PO (09:23)
[2022-05-19] MEDS: Furosemide 20 MG Tablet PO (09:45)
--- NOTE | 2022-05-19 10:50 | PN.CC_ITS ---
Assessment & Plan Assessment/Plan (1) Acute respiratory failure with hypoxia: (2) Pneumonia: QUALIFIERS: Pneumonia type: due to Pneumococcus Laterality: right Lung location: middle lobe of lung Qualified Code(s): J13 - Pneumonia due to Streptococcus pneumoniae (3) History of lung cancer: (4) Severe protein-calorie malnutrition: PLAN: Plan RECOMMENDATIONS: 1. Continue to wean supplemental oxygen as tolerated. 2. Continue antimicrobials to complete 7 days of therapy. 3. Continue diuretics as tolerated by hemodynamics and renal function. 4. Continue scheduled BuSpar twice daily to address underlying anxiety. 5. Continue to monitor H&H daily. Transfuse if hemoglobin drops below 7 g/dL. 6. Continue scheduled bronchodilators and IV steroids. 7. Continue PPI therapy. 8. Encourage incentive spirometer use and mobilize patient as tolerated. 9. Will sign off from a critical care perspective. Please call with any additional questions. IMPRESSIONS: 1.??Acute hypoxic respiratory failure in the setting of COPD and history of small cell lung cancer The patient presented with an acute COPD exacerbation which appears to be secondary to a right upper lobe infiltrate. The patient has slowly improved from a respiratory perspective. She remains on appropriate antimicrobials, s cheduled bronchodilators and steroids. Although the patient was able to be extubated on 05/14, she decompensated from a respiratory perspective approximately 12 hours later and had to be reintubated. Clinical concern that the patient's underlying anemia and anxiety may have contributed to her deco mpensation. With further volume optimization and stabilization of her anemia status, the patient was able to be extubated once again on May 17. She is doing well from a respiratory perspective on her baseline 3 L/min oxygen requirement. Plan to continue scheduled anxiolytics and pain medications, per home regimen. 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 The patient will be continued on appropriate PPI therapy. There are no overt signs of blood loss. If the patient remains anemic, I would recommend consultation to gastroenterology. 3.??Cardiomyopathy/paroxysmal A. fib/SVT Continue medical management per cardiology recommendations. 4.??Chronic pain syndrome/osteoporosis/GERD with history of GI b leed/CAD/debility Complicates care, management, recovery and prognosis.? Continue supportive measures as noted above. Physical therapy to work with the patient. This note was generated with Xelerated dictation software. It may contain incorrect words, spelling, and punctuation that were not noted in checking the note before signing. Subjective Subjective The patient was seen and examined at the bedside this morning. Events from the last 24 hours have been reviewed. The patient is currently afebrile, hemody namically stable and maintaining appropriate oxygen saturations on 4 L/min via nasal cannula. Morning labs appear stable. No overnight issues were identified by the nursing staff. Objective Data Objective Data The patient's most recent lab work, culture data and imaging studies have all been personally reviewed. Surface echocardiogram demonstrated normal LV size with moderate global LV systolic dysfunction and an ejection fraction of 35%. Vital Signs: Vital Signs Temp Pulse Resp BP Pulse Ox O2 Del Method O2 Flow Rate 98.0 F 108 H 16 105/66 92 Nasal Cannula 4 05/19/22 09:20 05/19/22 09:20 05/19/22 09:20 05/19/22 09:20 05/19/22 09:20 05/19/22 09:20 05/19/22 09:20 FiO2 30 05/17/22 09:00 Oxygen Flow Rate (L/min) [ 4 AMBULATING with Oxygen #3] Oxygen Flow Rate (L/min) [ 3 AMBULATING with Oxygen #2] Oxygen Flow Rate (L/min) [ 2 AMBULATING with Oxygen #1] Oxygen Flow Rate (L/min) [At 2 REST with Oxygen] Oxygen Flow Rate (L/min) 4 Oxygen Delivery Method Nasal Cannula Weight: 91 lb 4.342 oz Body Mass Index (BMI) 20.5 Intake & Output: Intake and Output for Last 24 Hours 05/17/22 05/18/22 05/19/22 23:59 23:59 23:59 Intake Total 1053.52 / 1054.85 307.71 / 307.71 Output Total 2200 / 2350 2250 / 2250 200 / 200 Balance -1146.48 / -1295.15 -1942.29 / -1942.29 -200 / -200 Medical Nutrition Assessment Dietitian: Malnutrition Criteria Met Start: 05/17/22 11:27 Freq: Status: Active Protocol: Document 05/17/22 11:27 (Rec: 05/17/22 11:27 AG [id number]) Nutrition Malnutrition Evidence of Malnutrition Exists Yes Malnutrition (severe): Acute Illness/Injury Evidenced By Suboptimal Energy Intake ( Severe),Physical Changes ( Severe) Intake Problem Inadequate Oral Intake Etiology related to resp. failure Signs/Symptoms as evidenced by NPO status Status Active Problem Clinical Problem Chronic Disease or Condition Related Malnutrition Etiology severe, chronic malnutrition related to inadequate energy intake Signs/Symptoms as evidenced by severe muscle wasting/fat loss evident in orbital, clavicle, acromion, temporal areas per physical exam; estimated energy intake meeting <75% of estimated energy needs > 3 months Status Active Problem Recommendation Dietitian Recommendations/Changes recommend regular diet as tolerated; consult S[employer]IOR [employer] DEVELOPER for chewing/swallowing difficulties as indicated; ensure plus high protein 120mL 4x/day w/ medpass when diet advanced. Lab / Micro Data Attestation: I reviewed the patient's lab results. Result Diagrams: 05/19/22 05:00 05/19/22 05:00 Labs: Laboratory Results - last 24 hr 05/18/22 10:57: POC Glucose 110 H 05/18/22 17:17: POC Glucose 128 H 05/18/22 23:17: POC Glucose 141 H 05/19/22 05:00: WBC 13.0 H, RBC 2.94 L, Hgb 9.2 L, Hct 28.2 L, MCV 95.9, MCH 31.3, MCHC 32.6 D, RDW Std Deviation 55.2 H, RDW Coeff of Surinder 15.9 H, Plt Count 96 L, MPV 12.2 H, Immature Gran % (Auto) 0.400, Neut % (Auto) 96.2 H, Lymph % (Auto) 0.9 L, [place] % (Auto) 2.2, Eos % (Auto) 0.1, Baso % (Auto) 0.2, Absolute Neuts (auto) 12.5 H, Absolute Lymphs (auto) 0.12 L, Nucleated RBC % 0, Platelet Estimate MOD DEC, Anisocytosis 1+ 05/19/22 05:00: Sodium 137, Potassium 3.9, Chloride 101, Carbon Dioxide 34.0 H, Anion Gap 2 L, BUN 36 H, Creatinine 0.62, Estim Creat Clear Calc 32.75, Est GFR (MDRD) Af Amer 122, Est GFR (MDRD) Non-Af 101, BUN/Creatinine Ratio 58.4 H, Glucose 107 H, Calcium 8.7, Total Bilirubin 1.20 H, AST 230 H, ALT 165 H, Alkaline Phosphatase 112, Total Protein 5.6 L, Albumin 1.9 L, Globulin 3.7, Albumin/Globulin Ratio 0.5 L Micro: Microbiology 05/14/22 20:05 Sputum, Tracheal Aspirate Gram Stain - Final 05/14/22 20:05 Sputum, Tracheal Aspirate Respiratory Culture - Final Mixed normal respiratory mariano. No Streptococcus pneumoniae, beta-hemolytic Streptococcus or Staphylococcus aureus isolated. 05/11/22 11:50 Blood Culture (Wb) - Right Wrist Blood Culture - Final No growth in 5 days. 05/11/22 11:30 Blood Culture (Wb) #2 - Left Wrist Blood Culture - Final No growth in 5 days. 05/11/22 00:00 Urine Catheter - Bailey Urine Culture - Final Culture exhibits no growth. 05/11/22 19:40 Sputum, Expectorated/Coughed Gram Stain - Final 05/11/22 19:40 Sputum, Expectorated/Coughed Respiratory Culture - Final 05/11/22 21:45 Urine Catheter - Bailey Legionella Antigen - Final 05/11/22 21:45 Urine Catheter - Bailey Streptococcus pneumoniae Antigen (M - Final 05/11/22 11:21 Nasal Secretion SARS-CoV-2 & FLU Antigen (Rapid) - Final ABG Data ABG results: ABG 05/14/22 05/14/22 18:35 20:57 Specimen Type ART ART Sample Site L Radial pH 7.12 L* Bicarbonate Actual 20.8 L Total CO2 23 Base Excess -8 L O2 Saturation 99 O2 % 75 ABG pCO2 63.6 H ABG pO2 160 H VBG pH 7.35 VBG pO2 39 VBG HCO3 21 L VBG Total CO2 23 VBG O2 Sat (Calc) 71 H VBG Base Excess -4 L POC Mix VBG pCO2 Pt Tmp 38.9 L Respiration Rate 14 12 O2 Delivery Device BiPAP ET Tube Vent Mode avaps Tidal Volume 450 POC PEEP 10 5 Crit Call To/Read Back Yes Radiography Diagnostic Testing: Radiology Impression Chest X-Ray 05/15/22 16:40 IMPRESSION: No change in the appearance of the chest from reference examination. Support structures in good position. Electronically Signed: Hang La MD at 17:57 EST , Chest X-Ray 05/15/22 16:49 IMPRESSION: No change in the appearance of the chest from the reference exam. Support structures in stable position. Electronically Signed: Hang La MD at 17:58 EST , Physical Exam Const alert and no apparent distress General Appearance: cooperative Nutritional Appearance: thin HEENT normocephalic, head/scalp atraumatic and moist oral mucous membranes Eyes PERRL, EOMs intact bilaterally and conjunctivae normal Neck supple General: trachea midline Chest Chest Narrative: Increased AP diameter Resp Resp Narrative: Currently receiving an aerosol treatment. Auscultation: diminished lung sounds; Negative for rales, rhonchi or wheezes Cardio regular rate, regular rhythm, S1 normal heart sound and S2 normal heart sound GI normal to inspection, nondistended, normoactive bowel sounds Extremity no clubbing, cyanosis or edema Skin no rashes or lesions noted Neuro CN's II-XII intact bilaterally, moves all extremities and no focal motor deficits Psych Mood & Affect: anxious Charges/Coding Visit Charges Inpatient E&M: 05371 Subs Hosp L2
--- NOTE | 2022-05-19 11:53 | CASEMGMT ---
Social Work Telephone call from patient son, Himanshu. Himanshu reports concerns about patient returning to home but she won't agreeable to a retirement. Himanshu inquired about the TCU or Rehab Unit. This social human services assistants communicating that patient does not have a qualifying diagnosis for the Inpatient Rehab. Himanshu request for referral to be made to the TCU. Tele[facility] call to [facility] reports to have no open beds and to not be able to accept patient insurance. Will continue to follow. Jana WHITMAN, GEOVANY
--- NOTE | 2022-05-19 12:08 | CASEMGMT ---
Social Work Telephone call to Himanshu. This health social work professor updated Himanshu to that TCU does not have any open beds. Himanshu inquired if any other nursing homes in [facility] are an option. This health social work professor informing Himanshu about [facility] and [facility]. Himanshu agreeable to both. Discharge wind science and planning, Jonna contacting [facility] and [facility]. [facility] has no openings and not able to accept patient insurance. [facility] has one bed open. Jonna sent referral. This health social work professor updated Himanshu on above information. Will continue to follow. Jana WHITMAN, GEOVANY
[2022-05-19 12:10] LABS: Bedside Glucose 85 mg/dL (74-106)
[2022-05-19 12:10] LABS: Bedside Glucose 72 mg/dL (74-106)
--- NOTE | 2022-05-19 12:14 | CASEMGMT ---
Discharge Internship Coordinator This information writer sent referral to [facility] via [facility]. Josette ESPINAL Field Marketing Lead
--- NOTE | 2022-05-19 12:56 | NURSING ---
patient seen on camera on her knees against bed, JORDAN Guzman, this RN, and Isa Gifford RN entered room. O2 off, telemetry wires and patient covered in stool. Patient assisted to lay down on floor with pillow behind head, 4L NC placed on patient, assisted patient to [facility] x3 assist. Vitals obtained, patient slightly confused- able to state name, place, year and month, however asked where did Bill go? I informed patient that Bill has not been here today. Patient stated Are you sure? Bill was in here and if he was then why did I fall? This Rn communicated to patient that Bill has not been here today, was here yesterday and plans to come in today around 2pm. patient cleaned up, new linens, gown, brief, chair alarm placed on chair and patient then assisted to chair. This RN ensured chair alarm working properly, call light in reach and reeducated on the use of call light and not getting up by herself, bedside table placed in front of patient with all items in reach, legs elevated in chair, patient denies further needs. Dr. Hernandez notified to call ICU for update.
--- NOTE | 2022-05-19 13:17 | NURSING ---
notified of series of events and hypotension, 500cc bolus of NS ordered.
--- NOTE | 2022-05-19 14:58 | CT_ITS ---
EXAMINATION : Head CT w/out contrast HISTORY : confusion COMPARISON : None. TECHNIQUE : Multiple contiguous axial images were obtained from the skull base to the vertex without intravenous contrast. A radiation dose optimization technique was used for this scan. FINDINGS : There is no evidence for acute intracranial hemorrhage, mass effect, or midline shift. There is no extra-axial fluid collection. There are periventricular white matter changes consistent with chronic microvascular ischemic disease. There is sulcal widening and ventricular enlargement consistent with cerebral atrophy. There is normal mas-white differentiation, without CT evidence of acute ischemia or infarct. The skull base and calvarium are unremarkable. The orbits are unremarkable. The paranasal sinuses are clear. The mastoid air cells are well-aerated. The soft tissues are unremarkable. CT/Brain/Head without Contrast IMPRESSION: No acute intracranial abnormality. Chronic involutional and ischemic changes of the brain. Electronically Signed: Hari Soto MD at 16:43 EST ,
--- NOTE | 2022-05-19 15:11 | CASEMGMT ---
Social Work This social media job titles attempted to meet with patient in room. Patient having medical issues currently. Nursing aware and in room with patient. Will continue to follow Jana WHITMAN, ROBERTS
--- NOTE | 2022-05-19 15:24 | PN.HOSP_ITS ---
Subjective Subjective Patient reports she is feeling better. Was refusing to go to a facility. Was doing better this morning however was fairly weak and debilitated. I had further discussion with her about placement and she was adamant that she will not go however she was willing to go if we found her place that was within the hospital. Evidently per conversation with case management there is a bed in [place] and they would be willing to accept her there. Unfortunately, the patient was found kneeling at the side of the bed and had a fall. Her blood pressure dropped and she was hypoxic as she had pulled her oxygen off. She was also found to be a bit more confused. It is unclear if this is related to her hypoxia at this time. She denied hitting her head however we will proceed with a CT of her head as she is on anticoagulation. Unfortunately we will have to hold on on discharge. Objective Data Objective Data Vital Signs: Vital Signs Temp Pulse Resp BP Pulse Ox O2 Del Method O2 Flow Rate 98.2 F 83 16 78/45 L 86 Nasal Cannula 4 05/19/22 14:00 05/19/22 15:00 05/19/22 15:00 05/19/22 15:00 05/19/22 15:00 05/19/22 15:00 05/19/22 15:00 FiO2 30 05/17/22 09:00 Oxygen Flow Rate (L/min) [ 4 AMBULATING with Oxygen #3] Oxygen Flow Rate (L/min) [ 3 AMBULATING with Oxygen #2] Oxygen Flow Rate (L/min) [ 2 AMBULATING with Oxygen #1] Oxygen Flow Rate (L/min) [At 2 REST with Oxygen] Oxygen Flow Rate (L/min) 4 Oxygen Delivery Method Nasal Cannula Weight: 41.4 kg Body Mass Index (BMI) 20.5 Intake & Output: Intake and Output for Last 24 Hours 05/17/22 05/18/22 05/19/22 23:59 23:59 23:59 Intake Total 1053.52 / 1054.85 307.71 / 307.71 500 / 500 Output Total 2200 / 2350 2250 / 2250 200 / 200 Balance -1146.48 / -1295.15 -1942.29 / -1942.29 300 / 300 Medical Nutrition Assessment Dietitian: Malnutrition Criteria Met Start: 05/17/22 11:27 Freq: Status: Active Protocol: Document 05/17/22 11:27 (Rec: 05/17/22 11:27 [id number]) Nutrition Malnutrition Evidence of Malnutrition Exists Yes Malnutrition (severe): Acute Illness/Injury Evidenced By Suboptimal Energy Intake ( Severe),Physical Changes ( Severe) Intake Problem Inadequate Oral Intake Etiology related to resp. failure Signs/Symptoms as evidenced by NPO status Status Active Problem Clinical Problem Chronic Disease or Condition Related Malnutrition Etiology severe, chronic malnutrition related to inadequate energy intake Signs/Symptoms as evidenced by severe muscle wasting/fat loss evident in orbital, clavicle, acromion, temporal areas per physical exam; estimated energy intake meeting <75% of estimated energy needs > 3 months Status Active Problem Recommendation Dietitian Recommendations/Changes recommend regular diet as tolerated; consult LIGHTING ENGINEERING TECHNICIAN for chewing/swallowing difficulties as indicated; ensure plus high protein 120mL 4x/day w/ medpass when diet advanced. Lab / Micro Data Result Diagrams: 05/19/22 05:00 05/19/22 05:00 Labs: Laboratory Results - last 24 hr 05/18/22 17:17: POC Glucose 128 H 05/18/22 23:17: POC Glucose 141 H 05/19/22 05:00: WBC 13.0 H, RBC 2.94 L, Hgb 9.2 L, Hct 28.2 L, MCV 95.9, MCH 31.3, MCHC 32.6 D, RDW Std Deviation 55.2 H, RDW Coeff of Surinder 15.9 H, Plt Count 96 L, MPV 12.2 H, Immature Gran % (Auto) 0.400, Neut % (Auto) 96.2 H, Lymph % (Auto) 0.9 L, [place] % (Auto) 2.2, Eos % (Auto) 0.1, Baso % (Auto) 0.2, Absolute Neuts (auto) 12.5 H, Absolute Lymphs (auto) 0.12 L, Nucleated RBC % 0, Platelet Estimate MOD DEC, Anisocytosis 1+ 05/19/22 05:00: Sodium 137, Potassium 3.9, Chloride 101, Carbon Dioxide 34.0 H, Anion Gap 2 L, BUN 36 H, Creatinine 0.62, Estim Creat Clear Calc 32.75, Est GFR (MDRD) Af Amer 122, Est GFR (MDRD) Non-Af 101, BUN/Creatinine Ratio 58.4 H, Glucose 107 H, Calcium 8.7, Total Bilirubin 1.20 H, AST 230 H, ALT 165 H, Alkaline Phosphatase 112, Total Protein 5.6 L, Albumin 1.9 L, Globulin 3.7, Albumin/Globulin Ratio 0.5 L 05/19/22 08:35: POC Glucose 72 L 05/19/22 11:46: POC Glucose 85 Micro: Microbiology 05/14/22 20:05 Sputum, Tracheal Aspirate Gram Stain - Final 05/14/22 20:05 Sputum, Tracheal Aspirate Respiratory Culture - Final Mixed normal respiratory mariano. No Streptococcus pneumoniae, beta-hemolytic Streptococcus or Staphylococcus aureus isolated. 05/11/22 11:50 Blood Culture (Wb) - Right Wrist Blood Culture - Final No growth in 5 days. 05/11/22 11:30 Blood Culture (Wb) #2 - Left Wrist Blood Culture - Final No growth in 5 days. 05/11/22 00:00 Urine Catheter - Bailey Urine Culture - Final Culture exhibits no growth. 05/11/22 19:40 Sputum, Expectorated/Coughed Gram Stain - Final 05/11/22 19:40 Sputum, Expectorated/Coughed Respiratory Culture - Final 05/11/22 21:45 Urine Catheter - Bailey Legionella Antigen - Final 05/11/22 21:45 Urine Catheter - Bailey Streptococcus pneumoniae Antigen (M - Final 05/11/22 11:21 Nasal Secretion SARS-CoV-2 & FLU Antigen (Rapid) - Final Physical Exam Const alert and oriented x3 Constitutional Narrative: Anxious older white female, cachectic, at the time of my evaluation the patient was sitting up in bed with the nurse at the bedside, appeared calm and comfortable, nontoxic, was satting well on her supplemental oxygen at 3 L and blood pressures were stable--> was called later with lower blood pressures and hypoxia as the patient had taken off her oxygen, patient appears very much older than stated age and frail HEENT head/scalp atraumatic and moist oral mucous membranes HEENT Narrative: Edentulous, Mallampati is 1, no thrush Resp normal respiratory effort, no retractions and no use of accessory muscles Resp Narrative: Severely diminished diffusely Auscultation: Negative for crackles, rhonchi or wheezes Cardio regular rate, regular rhythm, S1 normal heart sound, S2 normal heart sound, no murmurs, no rub, no gallops and no clicks GI normal to inspection, nondistended, normoactive bowel sounds, soft to palpation, non-tender and non-distended GI Narrative: Scaphoid abdomen Extremity no clubbing, cyanosis or edema Extremity Narrative: 2+ pedal pulses Neuro oriented x3, moves all extremities and no focal motor deficits Sensorium / Orientation: awake, alert, oriented to person, oriented to place and oriented to time Speech: speech normal Psych Psych Narrative: Appropriately interactive, less anxious today Assessment & Plan Assessment/Plan (1) Cardiomyopathy: (2) SVT (supraventricular tachycardia): (3) Acute respiratory failure with hypoxia: (4) Severe protein-calorie malnutrition: (5) Pneumonia: QUALIFIERS: Pneumonia type: due to Pneumococcus Laterality: right Lung location: middle lobe of lung Qualified Code(s): J13 - Pneumonia due to Streptococcus pneumoniae (6) Anemia: QUALIFIERS: Anemia type: unspecified type Qualified Code(s): D64.9 - Anemia, unspecified PLAN: Plan Acute on chronic hypoxic respiratory failure-Multifactorial(suspected pneumonia/HFrEF/lung CA/COPD) -Slowly improving clinically -No sepsis present at all during this hospitalization -Patient was weaned down to 3 L nasal cannula however after the event where she took her oxygen off her oxygen requirements increased -Continue steroids but changed to oral -Continue bronchodilators -Antimicrobials have been completed -COVID and respiratory panel are negative -Convert Lasix to p.o. -Pulmonary medicine following-appreciate input Compensated heart failure with reduced ejection fraction -Newly worsened EF--> again--> recovered from 12/2021 admission on most recent echo prior to this admission -Was decompensated during this hospital course but now compensated -Convert to p.o. Lasix -Hold metoprolol and lisinopril -Echocardiogram from 05/12/2022 showed an EF of 35% with a mildly dilated RV, mild global right ventricular dysfunction, left atrial enlargement, mild mitral valve insufficiency, trivial pericardial effusion with no evidence of tamponade, right ventricular systolic pressure to 35 mmHg -Patient did have follow-up echo after August admission where her EF was noted to be 35% in early January that showed recovery of her EF to 60%, it appears her EF is somewhat labile -Follows with Dr. Champion at [facility] for cardiology at baseline -Cardiology is following-appreciate input Newly developed hypotension -Etiology is unclear as it was a precipitous drop in blood pressures were fine and stable this morning -We will hold all oral antihypertensives -Fluid bolus in progress if this does not help we will need to start pressors -Check CBC to rule out any bleeding as she is anticoagulated and had a fall next -check BMP -Patient with negative blood cultures from 05/11/2022, negative respiratory culture -Got her last dose of Levaquin today A. fib with RVR/PAF -Patient has been in and out of A. fib during her hospital stay -Remains in normal sinus rhythm -Amiodarone 200 mg daily -Hold metoprolol with blood pressures being low -Echo as above -Continue apixaban Transaminitis -Mild and has trended up in the last 24 hours -We will repeat in a.m. off antibiotics and if not improving will need to pursue further work-up -Repeat lab in a.m. 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 has reinitiated -Continue home salt tablets -IV diuretics on hold -BMP in a.m. Small cell lung CA -Follows with Dr. Corbett -Currently in remission CAD with history of AK -History of stent placement -Patient is currently not on any statin -Continue home statin -Previous stents were remote at [facility] Hyperlipidemia -Continue home atorvastatin 10 mg nightly COPD/emphysema -As needed albuterol -Scheduled DuoNebs -Hold home Trelegy Ellipta and restart at discharge -Pulmonary medicine is following Severe malnutrition -Continue supplements -Encourage p.o. intake with liberal diet -Dietitian following Osteoporosis -Restart alendronate at discharge Chronic pain -Oxy IR 10 mg 3 times daily via OG -Continue scheduled morphine as ordered GERD with history of GI bleed -Restart p.o. Protonix 40 twice daily -Continue Carafate Anxiety -Continue added BuSpar -Ativan made symptoms worse -Continue Risperdal 1 mg p.o. twice daily as the patient did say this seemed to help her -Encouraged outpatient psychiatry follow-up for anxiety and patient is resistant--> we will make referral discharge DVT prophylaxis -SCDs -Chemoprophylaxis on hold secondary to thrombocytopenia and anemia CODE STATUS -Full code Disposition: Overall prognosis is fairly poor as patient is very frail and severely malnourished. Anxiety contributes to respiratory distress. Very debilitated but reluctant to be placed. Refused palliative care at her previous admission. Charges/Coding Visit Charges Inpatient E&M: 31032 Subs Hosp L2
[2022-05-19 15:25] LABS: Base Excess 2 mmol/L (-2 to +2); Bicarbonate 26.9 mmol/L (22-26); Blood Gas Specimen Type ART; O2 Delivery Device Cannula; PO2 53 mmHG (75-100); SITE L Brach; SO2 88 % (95-99); Total Carbon Dioxide 28 mmol/L; pCO2 41.3 mmHg (35-45); pH 7.42 (7.35-7.45)
--- NOTE | 2022-05-19 15:50 | RAD_ITS ---
INDICATION: pain EXAMINATION/TECHNIQUE: X-RAY - XR Pelvis 1 or 2 Views COMPARISON: None. FINDINGS: PELVIC BONES: No displaced fracture, destructive or sclerotic lesions. Note that overlapping bowel shadows may however obscure fine detail. Sacroiliac joints are unremarkable. No widening of the pubic symphysis. HIPS: Mild degenerative changes of the bilateral hips. No displaced fracture seen in this frontal view. SOFT TISSUES: No soft tissue swelling or gas. Partially seen aortoiliac stent graft. RAD/Pelvis 1 or 2 Views IMPRESSION: No evidence of displaced pelvic or hip fracture. Electronically Signed: Hari Soto MD at 16:57 EST ,
--- NOTE | 2022-05-19 15:50 | RAD_ITS ---
INDICATION: pain EXAMINATION/TECHNIQUE: X-RAY - XR Spine Lumbar 2 or 3 Views COMPARISON: None. FINDINGS: VERTEBRAE: Multiple chronic compression deformities of the T10, T12, L1, L2 and L3 vertebral body status post kyphoplasty. No spondylolisthesis. Preservation of the normal lumbar lordosis. Severe multilevel facet arthropathy. DISCS: Severe multilevel degenerative disc disease and spondylosis. INCLUDED ABDOMEN: Included bowel gas pattern is non-obstructive. Aortoiliac stent graft in place. RAD/Lumbar Spine 2 or 3 Views IMPRESSION: No evidence of acute lumbar spinal fracture or spondylolisthesis. Multiple chronic compression deformities of the T10, T12, L1, L2 and L3 vertebral body status post kyphoplasty. Severe multilevel degenerative disc disease and spondylosis. Electronically Signed: Hari Soto MD at 17:00 EST ,
[2022-05-19 16:38] LABS: Absolute Lymphocyte Count 0.14 X10^3/uL (0.83-4.51); Absolute Neutrophil Count 14.2 X10^3/uL (2.0-7.7); Basophil# 0.01 X10^3/uL; Basophil% 0.1 % (0-1); Hematocrit 26.6 % (37-47); Hemoglobin 8.2 g/dL (12.0-15.0); Lymphocyte # 0.14 X10^3/ul (0.83-4.51); Lymphocyte % 0.9 % (19-41); Mean Corp Hgb Conc 30.8 g/dL (32-36); Mean Corpuscular Volume 97.4 fL (81-99); Mean Platelet Vol. 12.2 fl (6.2-12.0); Monocyte# 0.35 X10^3/uL; Monocyte% 2.4 % (0-10); NRBC Flagged by Analyzer 0 % (0-5); Neutrophil # 14.24 X10^3/uL (2.7-7.7); Neutrophil % 95.9 % (47-70); POSITIVE DIFFERENTIAL YES; Platelet Count 105 K/mm3 (150-450); RBC Distribution Width CV 16.1 % (11.6-14.6); RBC Distribution Width SD 57.1 fl (35.1-43.9); Red Blood Count 2.73 M/mm3 (4.2-5.4); White Blood Count 14.8 K/mm3 (4.4-11.0)
[2022-05-19 16:39] LABS: Differential Indicated SCAN CRITERIA MET
[2022-05-19 16:46] LABS: Anion Gap 4 (5-15); BUN 41 mg/dL (7-18); BUN/Creat Ratio 59.5 RATIO (10-20); Calcium,Total 8.4 mg/dL (8.5-10.1); Chloride 105 mmol/L (98-107); Creatinine, Serum 0.69 mg/dL (0.55-1.02); EST Glomerular Filtration Rate 89 mL/min (>60); Est Glom Filt Rate - Afr Amer 107 mL/min (>60); Estimated Creatinine Clearance 32.75 ml/min; Glucose 127 mg/dL (74-106); Potassium 3.8 mmol/L (3.5-5.1); Sodium Level 140 mmol/L (136-145)
[2022-05-19 16:55] LABS: Bedside Glucose 117 mg/dL (74-106)
[2022-05-19 16:59] LABS: Lactic Acid 1.2 mmol/L (0.4-1.9)
[2022-05-19 17:05] LABS: Anisocytosis 1+; Macrocytosis 1+; Platelet Estimate MOD DEC (ADEQ); Red Cell Morphology N CHROM NORMAL (NORM C&C)
[2022-05-19 17:25] LABS: Procalcitonin 0.73 ng/mL (0.00-0.09)
--- NOTE | 2022-05-19 18:03 | PN.CARD_ITS ---
Subjective Subjective The patient appears to be awake and alert at the moment. She was reported as being prepared for discharge home earlier today when she was up and about and subsequently fell. She is undergoing evaluation for any obvious injuries related to her fall by internal medicine. She does not recall any acute symptoms such as chest discomfort or acute change in her respiratory status. She does not recall having any obvious palpitations. There was no report of loss of consciousness. At the moment she appears to be resting comfortably. She states she feels okay . She was noted to have had low blood pressures. She was to be released home on O2 therapy as well based upon her underlying hypoxemia. She was noted by the nursing staff to appear to have episodes of paroxysmal atrial fibrillation although they state they were unable to capture at with respect to cardiac rhythm monitoring/electrocardiograms. She has subsequently had an episode of a somewhat irregular wide-complex tachycardia with an underlying baseline without obvious consistent repetitive atrial morphology. She had spontaneous return to sinus rhythm. Objective Data Vital Signs: Vital Signs Temp Pulse Resp BP Pulse Ox O2 Del Method O2 Flow Rate 98.2 F 76 16 93/43 L 80 Nasal Cannula 5 05/19/22 14:00 05/19/22 17:00 05/19/22 17:00 05/19/22 17:00 05/19/22 17:00 05/19/22 17:00 05/19/22 17:00 FiO2 30 05/17/22 09:00 Oxygen Flow Rate (L/min) [ 4 AMBULATING with Oxygen #3] Oxygen Flow Rate (L/min) [ 3 AMBULATING with Oxygen #2] Oxygen Flow Rate (L/min) [ 2 AMBULATING with Oxygen #1] Oxygen Flow Rate (L/min) [At 2 REST with Oxygen] Oxygen Flow Rate (L/min) 5 Oxygen Delivery Method Nasal Cannula Weight: 91 lb 4.342 oz Body Mass Index (BMI) 20.5 Intake & Output: Intake and Output for Last 24 Hours 05/17/22 05/18/22 05/19/22 23:59 23:59 23:59 Intake Total 1053.52 / 1054.85 307.71 / 307.71 1000 / 1000 Output Total 2200 / 2350 2250 / 2250 200 / 200 Balance -1146.48 / -1295.15 -1942.29 / -1942.29 800 / 800 Lab / Micro Data Result Diagrams: 05/19/22 16:20 05/19/22 16:20 Labs: Laboratory Results - last 24 hr 05/18/22 17:17: POC Glucose 128 H 05/18/22 23:17: POC Glucose 141 H 05/19/22 05:00: WBC 13.0 H, RBC 2.94 L, Hgb 9.2 L, Hct 28.2 L, MCV 95.9, MCH 31.3, MCHC 32.6 D, RDW Std Deviation 55.2 H, RDW Coeff of Surinder 15.9 H, Plt Count 96 L, MPV 12.2 H, Immature Gran % (Auto) 0.400, Neut % (Auto) 96.2 H, Lymph % (Auto) 0.9 L, [place] % (Auto) 2.2, Eos % (Auto) 0.1, Baso % (Auto) 0.2, Absolute Neuts (auto) 12.5 H, Absolute Lymphs (auto) 0.12 L, Nucleated RBC % 0, Platelet Estimate MOD DEC, Anisocytosis 1+ 05/19/22 05:00: Sodium 137, Potassium 3.9, Chloride 101, Carbon Dioxide 34.0 H, Anion Gap 2 L, BUN 36 H, Creatinine 0.62, Estim Creat Clear Calc 32.75, Est GFR (MDRD) Af Amer 122, Est GFR (MDRD) Non-Af 101, BUN/Creatinine Ratio 58.4 H, Glucose 107 H, Calcium 8.7, Total Bilirubin 1.20 H, AST 230 H, ALT 165 H, Alkaline Phosphatase 112, Total Protein 5.6 L, Albumin 1.9 L, Globulin 3.7, Albumin/Globulin Ratio 0.5 L 05/19/22 08:35: POC Glucose 72 L 05/19/22 11:46: POC Glucose 85 05/19/22 16:20: WBC 14.8 H, RBC 2.73 L, Hgb 8.2 L, Hct 26.6 L, MCV 97.4, MCH 30.0, MCHC 30.8 L D, RDW Std Deviation 57.1 H, RDW Coeff of Surinder 16.1 H, Plt Count 105 L, MPV 12.2 H, Immature Gran % (Auto) 0.700, Neut % (Auto) 95.9 H, Lymph % (Auto) 0.9 L, [place] % (Auto) 2.4, Eos % (Auto) 0.0, Baso % (Auto) 0.1, Absolute Neuts (auto) 14.2 H, Absolute Lymphs (auto) 0.14 L, Nucleated RBC % 0, Differential Comment SEE COMMENT, Platelet Estimate MOD DEC, RBC Morphology N CHROM, Anisocytosis 1+, Macrocytosis 1+ 05/19/22 16:20: Sodium 140, Potassium 3.8, Chloride 105, Carbon Dioxide 31.0, Anion Gap 4 L, BUN 41 H, Creatinine 0.69, Estim Creat Clear Calc 32.75, Est GFR (MDRD) Af Amer 107, Est GFR (MDRD) Non-Af 89, BUN/Creatinine Ratio 59.5 H, Glucose 127 H, Calcium 8.4 L 05/19/22 16:20: Lactic Acid 1.2 05/19/22 16:20: Procalcitonin 0.73 H 05/19/22 16:31: POC Glucose 117 H ABG Data ABG results: ABG 05/19/22 15:19 Specimen Type ART Sample Site L Brach pH 7.42 Bicarbonate Actual 26.9 H Total CO2 28 Base Excess 2 O2 Saturation 88 L ABG pCO2 41.3 ABG pO2 53 L Jorge Test N/A O2 Delivery Device Cannula Liter Flow 4.0 Cardiology Labs/Tests 05/19/22 05:00: WBC 13.0 H, RBC 2.94 L, Hgb 9.2 L, Hct 28.2 L, MCV 95.9, MCH 31.3, MCHC 32.6 D, Plt Count 96 L, MPV 12.2 H, Immature Gran % (Auto) 0.400, Neut % (Auto) 96.2 H, Lymph % (Auto) 0.9 L, [place] % (Auto) 2.2, Eos % (Auto) 0.1, Baso % (Auto) 0.2, Absolute Neuts (auto) 12.5 H, Nucleated RBC % 0 05/19/22 05:00: Sodium 137, Potassium 3.9, Chloride 101, Carbon Dioxide 34.0 H, Anion Gap 2 L, BUN 36 H, Creatinine 0.62, Est GFR (MDRD) Af Amer 122, Est GFR (MDRD) Non-Af 101, BUN/Creatinine Ratio 58.4 H, Glucose 107 H, Calcium 8.7, Total Bilirubin 1.20 H 05/19/22 15:19: pH 7.42, Bicarbonate Actual 26.9 H, Base Excess 2, O2 Saturation 88 L, ABG pCO2 41.3, ABG pO2 53 L, Jorge Test N/A 05/19/22 16:20: WBC 14.8 H, RBC 2.73 L, Hgb 8.2 L, Hct 26.6 L, MCV 97.4, MCH 30.0, MCHC 30.8 L D, Plt Count 105 L, MPV 12.2 H, Immature Gran % (Auto) 0.700, Neut % (Auto) 95.9 H, Lymph % (Auto) 0.9 L, [place] % (Auto) 2.4, Eos % (Auto) 0.0, Baso % (Auto) 0.1, Absolute Neuts (auto) 14.2 H, Nucleated RBC % 0 05/19/22 16:20: Sodium 140, Potassium 3.8, Chloride 105, Carbon Dioxide 31.0, Anion Gap 4 L, BUN 41 H, Creatinine 0.69, Est GFR (MDRD) Af Amer 107, Est GFR (MDRD) Non-Af 89, BUN/Creatinine Ratio 59.5 H, Glucose 127 H, Calcium 8.4 L 05/19/22 16:20: Lactic Acid 1.2 Rhythm: As noted above Radiography Diagnostic Testing: Radiology Impression Brain CT 05/19/22 14:58 IMPRESSION: No acute intracranial abnormality. Chronic involutional and ischemic changes of the brain. Electronically Signed: Hari Soto MD at 16:43 EST , Lumbar Spine X-Ray 05/19/22 15:50 IMPRESSION: No evidence of acute lumbar spinal fracture or spondylolisthesis. Multiple chronic compression deformities of the T10, T12, L1, L2 and L3 vertebral body status post kyphoplasty. Severe multilevel degenerative disc disease and spondylosis. Electronically Signed: Hari Soto MD at 17:00 EST , Pelvis X-Ray 05/19/22 15:50 IMPRESSION: No evidence of displaced pelvic or hip fracture. Electronically Signed: Hari Soto MD at 16:57 EST , Physical Exam Const alert and no apparent distress Orientation / Consciousness: awake HEENT normocephalic, head/scalp atraumatic and hearing grossly normal bilaterally Eyes PERRL, EOMs intact bilaterally, conjunctivae normal and no scleral icterus Neck full ROM, supple and no JVD Resp normal respiratory effort Auscultation: rhonchi throughout (Scattered (right greater than left)) Cardio regular rate, regular rhythm, S1 normal heart sound and S2 normal heart sound GI normal to inspection, nondistended, normoactive bowel sounds Extremity no pedal edema Skin no rashes or lesions noted Assessment & Plan Assessment/Plan (1) SVT (supraventricular tachycardia): PLAN: The patient has a history of SVT. It appears that she has been predominantly in sinus rhythm with a question of recurrent paroxysmal atrial fibrillation. At the moment her rate control therapy has been on hold secondary to concerns of hypotension. (2) Paroxysmal atrial fibrillation: PLAN: The patient has a history of PAF. At the present time she is noted to be in sinus rhythm. She will continue medical management as deemed appropriate with respect to rate control therapy as she is able based upon her blood pressure recordings.. She has been placed on anticoagulant therapy. This can be continued unless otherwise contraindicated including concerns of gait disability, falls, injuries, etc. (3) Wide-complex tachycardia: PLAN: The patient has had episodes of wide-complex tachycardia. It appears to be irregular. There does not appear to be consistent underlying and repetitive atrial morphology. There is concerned this may be a form of atrial fibrillation with aberrancy. At the moment the patient's rate control therapy with her beta-anmol is on hold secondary to her hypotension. She will continue her antiarrhythmic therapy with her amiodarone. Her cardiac rate and rhythm will be monitored for any other changes that would warrant the need for additional evaluation and/or medical management. In the interim it may be reasonable to reassess her left ventricular wall motion and systolic function and LVEF as to whether there has been a significant change that would contribute to changes with her underlying rate and rhythm, etc. (4) CAD (coronary artery disease): PLAN: The patient has a history of CAD. The details are unknown. At the moment she will continue medical management as best as possible. (5) S/P PTCA (percutaneous transluminal coronary angioplasty): PLAN: The patient is reported as having a history of previous PCI at an outside institution. Again the details are unknown. She will continue medical therapy. (6) Cardiomyopathy: PLAN: The patient has a history of a previous transient cardiomyopathy. It is unclear as to whether this was related to a tachycardiac related cardiomyopathy versus related to a noncardiovascular condition such as her underlying pulmonary condition/hypoxemia or related to any concerns of previous chemotherapy. It appeared that her overall LV systolic function improved. She was reevaluated with a transthoracic echocardiogram earlier in this admission. She was noted to have diminished LV systolic function at the time. Hopefully as her heart rate and rhythm have come under better control her overall LV systolic function will once again improved. (7) AAA (abdominal aortic aneurysm): PLAN: The patient has a history of a AAA. Apparently this is undergone repair in the past based upon her past medical history. (8) Pneumonia: QUALIFIERS: Pneumonia type: due to Pneumococcus Laterality: right Lung location: middle lobe of lung Qualified Code(s): J13 - Pneumonia due to Streptococcus pneumoniae PLAN: The patient is being treated for underlying pneumonia superimposed upon her history of lung carcinoma. She is no longer mechanically intubated. She is continuing medical management. She has continued O2 support. (9) History of lung cancer: PLAN: The patient has a history of lung carcinoma. She will continue evaluation care per hematology and oncology. Apparently there has been discussions with the patient regarding the possibility of palliative/hospice care. According to the [facility] ICU staff she has declined this option at this time. (10) Anemia: QUALIFIERS: Anemia type: unspecified type Qualified Code(s): D64.9 - Anemia, unspecified PLAN: The patient remains with anemia. The anemia needs to be monitored. If her hemoglobin continues to decline then she may need further evaluation as to whether or not she is experiencing any type of hemorrhagic issues superimposed upon her other noncardiac comorbidities. This does impact her ability with respect to medical therapy and additional studies-especially invasive-if needed. Addt'l Comments The patient's case was discussed and reviewed with the patient and her spouse and the [facility] ICU staff. This note was generated using a voice recognition system and there may be incorrect words, spelling or punctuation that were not noted when reviewing the office note prior to saving. Procedure Criteria Type of Procedure Procedure Type: Elective Elective Risks - COVID COVID Risk Discussion: The surgeon/proceduralist and patient have discussed in detail the risk of exposure to and/or potential harm posed by the COVID-19 virus with having a surgery/procedure at this time versus the risk of delaying the surgery/procedure. It is not possible to know either the risk of delaying the surgery or procedure or chance of getting an infection with perfect accuracy, but a joint decision was made between the patient and the surgeon/proceduralist to proceed at this time with the scheduled surgery/procedure as indicated on the consent form.
--- NOTE | 2022-05-19 18:11 | ECHOL_ITS ---
Reason For Study: ARRYTHMIA Procedure This was a limited 2D transthoracic echocardiogram. The study was technically difficult. Limited views were obtained. Exam performed portable in ICU/CCU. Left Ventricle Normal LV size. Left ventricular systolic function is normal. The estimated ejection fraction is 55 %. Unable to assess diastolic dysfunction. No regional wall motion abnormalities noted. Right Ventricle Mildly dilated right ventricle. Mild global right ventricular systolic dysfunction. Atria The left atrium is mildly enlarged. Normal right atrium. Mitral Valve There is moderate mitral annular calcification. Mild diffuse mitral valve thickening. Tricuspid Valve Normal tricuspid valve. Aortic Valve Trisinus/trileaflet aortic valve. Mild focal aortic valve calcification. Pulmonic Valve The pulmonic valve is not well visualized. Pericardium/Pleural Small pericardial effusion. There are no echocardiographic indications of cardiac tamponade. MMode/2D Measurements & Calculations LVIDd: 3.7 cm IVSd: 1.1 cm LAV(MOD-sp4): 43.0 ml LVIDs: 3.4 cm LVPWd: 1.4 cm FS: 8.3 % LVAd ap4: 21.3 cm2 SV(MOD-sp4): 32.8 ml SV(sp4-el): 33.0 ml LVLd ap4: 6.6 cm EDV(MOD-sp4): 59.3 ml EDV(sp4-el): 58.6 ml LVAs ap4: 13.0 cm2 LVLs ap4: 5.6 cm ESV(MOD-sp4): 26.5 ml ESV(sp4-el): 25.5 ml EF(MOD-sp4): 55.3 % EF(sp4-el): 56.4 % LA A4 area: 16.1 cm2 RA A4 area: 13.9 cm2 ECHO/Echo, Limited Study Interpretation Summary The study was technically difficult. Limited views were obtained. Left ventricular systolic function is normal. The estimated ejection fraction is 55 %. Mildly dilated right ventricle. Mild global right ventricular systolic dysfunction. The left atrium is mildly enlarged. There is moderate mitral annular calcification. Mild diffuse mitral valve thickening. Mild focal aortic valve calcification. Small pericardial effusion. There are no echocardiographic indications of cardiac tamponade. Unable to assess diastolic dysfunction. Ordering Physician: Vic Reyes Referring Physician: SUZI BERGER Performed By: Farideh David RCS
[2022-05-19] MEDS: Atorvastatin Calcium 10 MG Tablet PO (20:52)
[2022-05-19] MEDS: RisperiDONE 1 MG Tablet PO (20:52)
[2022-05-19 21:40] LABS: Bedside Glucose 134 mg/dL (74-106)
--- NOTE | 2022-05-19 22:15 | RAD_ITS ---
STUDY: X-RAY CHEST REASON FOR EXAM: Female, 72 years old. Hypoxia. TECHNIQUE: Single AP portable view of the chest. COMPARISON: May 15, 2022. FINDINGS: Absence of the endotracheal tube and enteric tube seen on the prior study. Worsening right upper lobe infiltrate. The lungs are otherwise hyperexpanded. There is no demonstrated pleural abnormality. Normal size heart. Normal mediastinum and valeriy. Normal visualized pulmonary arteries. Normal visualized aortic arch and descending thoracic aorta. No osseous changes. There is no demonstrated abnormality of the visualized soft tissue structures of the upper abdomen. RAD/Chest 1 View (Portable) IMPRESSION: Worsening right upper lobe infiltrate. Electronically Signed: Jet Temple DO at 22:40 EST ,
[2022-05-19 22:34] LABS: Bacteria 0 SEEN /hpf (None Seen); Mucous, Urine 0 SEEN /hpf (<or=2+)
[2022-05-19 22:40] LABS: Color, Urine Yellow (Yellow); Glucose, Dipstick Normal (Normal); Ketone-Dipstick Negative (Negative); Leukocyte Esterase-Dipstick 500 /ul (Negative); Nitrite-Dipstick Positive (Negative); Occult Blood-Urine 250 /ul (Negative); Protein-Dipstick 30 mg/dl (Negative); Urine Bilirubin Dipstick Negative (Negative); Urine Clarity Sl. Cloudy (Clear); Urine Urobilinogen 1 mg/dl (Normal)
[2022-05-19 22:50] LABS: Red Blood Cells-Urine 10-25 SEEN /hpf (0-5); Squamous Epithelial Cells - UA 0-5 SEEN /hpf (5-10); White Blood Cells 0-5 SEEN /hpf (0-5)
[2022-05-19 22:51] LABS: Yeast-Urine 2+ /hpf (None Seen)
[2022-05-19] MEDS: Vancomycin IV 500 MG/100 ML BAG 100 MG IV (23:18)
--- NOTE | 2022-05-19 23:59 | PCM.RX.CS ---
Consult Pharmacy has been consulted to manage selected antiobiotic: Vancomycin Type of Consult: New start Labs: Sodium 140 mmol/L (136-145) 05/19/22 16:20 Potassium 3.8 mmol/L (3.5-5.1) 05/19/22 16:20 Chloride 105 mmol/L (98-107) 05/19/22 16:20 Carbon Dioxide 31.0 mmol/L (21.0-32.0) 05/19/22 16:20 Anion Gap 4 (5-15) L 05/19/22 16:20 BUN 41 mg/dL (7-18) H 05/19/22 16:20 Creatinine 0.69 mg/dL (0.55-1.02) 05/19/22 16:20 Est GFR (MDRD) Af Amer 107 mL/min (>60) 05/19/22 16:20 Est GFR (MDRD) Non-Af 89 mL/min (>60) 05/19/22 16:20 BUN/Creatinine Ratio 59.5 RATIO (10-20) H 05/19/22 16:20 Glucose 127 mg/dL (74-106) H 05/19/22 16:20 Microbiology: Microbiology 05/14/22 20:05 Sputum, Tracheal Aspirate Gram Stain - Final 05/14/22 20:05 Sputum, Tracheal Aspirate Respiratory Culture - Final Mixed normal respiratory mariano. No Streptococcus pneumoniae, beta-hemolytic Streptococcus or Staphylococcus aureus isolated. 05/11/22 11:50 Blood Culture (Wb) - Right Wrist Blood Culture - Final No growth in 5 days. 05/11/22 11:30 Blood Culture (Wb) #2 - Left Wrist Blood Culture - Final No growth in 5 days. 05/11/22 00:00 Urine Catheter - Bailey Urine Culture - Final Culture exhibits no growth. 05/11/22 19:40 Sputum, Expectorated/Coughed Gram Stain - Final 05/11/22 19:40 Sputum, Expectorated/Coughed Respiratory Culture - Final 05/11/22 21:45 Urine Catheter - Bailey Legionella Antigen - Final 05/11/22 21:45 Urine Catheter - Bailey Streptococcus pneumoniae Antigen (M - Final 05/11/22 11:21 Nasal Secretion SARS-CoV-2 & FLU Antigen (Rapid) - Final Weight used for dosin.4 kg Estimated Creatinine Clearance: 39.1 Goal Trough: 15-20 mcg/mL Pharmacy Plan for Drug Dosing: Pharmacy Service will continue to monitor and adjust dosing as required. Medications Vancomycin HCl 750 mg/ Sodium (Chloride) 265 mls @ 250 mls/hr IV Q24H TRENT Discontinued Medications Vancomycin HCl () 500 mg in 100 mls @ 100 mls/hr IV X1 ONE Stop: 05/19/22 23:29 Last Admin: 05/19/22 23:18 Dose: 100 mls/hr Follow-Up Labs: Trough Vancomycin Labs to be done on [date and time ordered]: 05/21 @ 9523
[2022-05-20] VITALS (66 sets, daily range): BP systolic 73–140; BP diastolic 30–109; PULSE 74–149; RESP 12–24; TEMP 36.9–37.9; O2SAT 83–100
[2022-05-20] MEDS: Ipratropium/Albuterol Sulfate 3 ML AMPUL.NEB INHALATION ×5 (02:19→23:09)
[2022-05-20] MEDS: Alteplase 2 MG/2 ML Vial IV (03:25)
[2022-05-20 04:55] LABS: Absolute Lymphocyte Count 0.14 X10^3/uL (0.83-4.51); Absolute Neutrophil Count 16.3 X10^3/uL (2.0-7.7); Basophil# 0.01 X10^3/uL; Basophil% 0.1 % (0-1); Eosinophil# 0.01 X10^3/uL; Eosinophils% 0.1 % (0-5); Hematocrit 24.4 % (37-47); Hemoglobin 7.8 g/dL (12.0-15.0); Lymphocyte # 0.14 X10^3/ul (0.83-4.51); Lymphocyte % 0.8 % (19-41); Mean Corpuscular Hgb 31.1 pg (27.0-32.0); Mean Corpuscular Volume 97.2 fL (81-99); Mean Platelet Vol. 11.1 fl (6.2-12.0); Monocyte# 0.36 X10^3/uL; Monocyte% 2.1 % (0-10); NRBC Flagged by Analyzer 0 % (0-5); Neutrophil # 16.31 X10^3/uL (2.7-7.7); Neutrophil % 96.1 % (47-70); POSITIVE DIFFERENTIAL YES; Platelet Count 115 K/mm3 (150-450); RBC Distribution Width CV 16.3 % (11.6-14.6); RBC Distribution Width SD 57.7 fl (35.1-43.9); Red Blood Count 2.51 M/mm3 (4.2-5.4)
[2022-05-20 05:10] LABS: Differential Indicated SCAN CRITERIA MET
[2022-05-20 05:24] LABS: ALB/GLOB Ratio 0.5 RATIO (0.9-2.4); AST(SGOT) 71 U/L (15-37); Alanine Aminotransfer ALT/SGPT 160 U/L (13-56); Albumin, Serum 1.6 g/dL (3.2-5.0); Alkaline Phosphatase 113 U/L (45-117); Anion Gap 5 (5-15); BUN 35 mg/dL (7-18); BUN/Creat Ratio 71.7 RATIO (10-20); Calcium,Total 7.9 mg/dL (8.5-10.1); Chloride 104 mmol/L (98-107); Creatinine, Serum 0.49 mg/dL (0.55-1.02); EST Glomerular Filtration Rate 132 mL/min (>60); Est Glom Filt Rate - Afr Amer 160 mL/min (>60); Estimated Creatinine Clearance 32.75 ml/min; Globulin 3.5 g/dL (2.2-4.2); Glucose 160 mg/dL (74-106); Potassium 3.5 mmol/L (3.5-5.1); Protein, Total 5.1 g/dL (6.4-8.2); Sodium Level 138 mmol/L (136-145)
[2022-05-20 05:25] LABS: Differential Comment SCANNED
--- NOTE | 2022-05-20 06:39 | PCM.PN.INT ---
Assessment & Plan Assessment/Plan (1) Acute respiratory failure with hypoxia: (2) Pneumonia: QUALIFIERS: Laterality: right Lung location: middle lobe of lung Pneumonia type: due to Pneumococcus Qualified Code(s): J13 - Pneumonia due to Streptococcus pneumoniae (3) History of lung cancer: (4) Severe protein-calorie malnutrition: PLAN: Plan RECOMMENDATIONS: 1. Continue to wean supplemental oxygen as tolerated. 2. Agree with broad-spectrum antimicrobial coverage, given acute decompensation. 3. Await results of repeat blood and urine cultures. 4. Hold diuretics and antihypertensives for now. 5. Continue to wean Levophed to maintain a mean arterial pressure at or above 65 mmHg. 6. Continue scheduled BuSpar twice daily to address underlying anxiety. 7. Continue to monitor H&H daily. Transfuse if hemoglobin drops below 7 g/dL. 8. Continue scheduled bronchodilators and IV steroids. 9. Continue PPI therapy. 10. Encourage incentive spirometer use and mobilize patient as tolerated. IMPRESSIONS: 1.??Acute hypoxic respiratory failure in the setting of COPD and history of small cell lung cancer The patient presented with an acute COPD exacerbation which appears to be secondary to a right upper lobe infiltrate. The patient has slowly improved from a respiratory perspective. She remains on appropriate antimicrobials, scheduled bronchodilators and steroids. Although the patient was able to be extubated on 05/14, she decompensated from a respiratory perspective approximately 12 hours later and had to be reintubated. Clinical concern that the patient's underlying anemia and anxiety may have contributed to her decompensation. With further volume optimization and stabilization of her anemia status, the patient was able to be extubated once again on May 17. She had been doing well from a respiratory perspective until May 19, when she fell and developed worsening hypoxia and hypotension. The patient will be maintained on supplemental oxygen to maintain saturations at or above 90%. Her antimicrobials have been broadened pending further infectious work-up. Plan to continue scheduled anxiolytics and pain medications, per home regimen. 2. Undifferentiated shock The patient developed hypotension yesterday, ultimately requiring the initiation of vasopressor support. The exact etiology for her hypotension is not entirely clear. She had been receiving diuretics so intravascular volume depletion is a possibility. However, the patient did receive some supplemental IV fluid hydration without significant improvement in her hemodynamic status. In addition to the aforementioned, an underlying urinary tract source of infection is also possible. Therefore, urine cultures have been sent. The patient will remain on empiric broad-spectrum antimicrobials and Levophed will be continued to maintain a mean arterial pressure at or above 65 mmHg. Lastly, we will check troponin as well. 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 The patient will be continued on appropriate PPI therapy. There are no overt signs of blood loss. If the patient remains anemic, I would recommend consultation to gastroenterology. 4.??Cardiomyopathy/paroxysmal A. fib/SVT Continue medical management per cardiology recommendations. 5.??Chronic pain syndrome/osteoporosis/GERD with history of GI bleed/CAD/debility Complicates care, management, recovery and prognosis.? Continue supportive measures as noted above. Physical therapy to work with the patient. TIME: 32 minutes of critical care time, independent of procedures, was spent addressing the patient's acute hypoxemic respiratory failure, undifferentiated shock, anemia, cardiomyopathy, paroxysmal atrial fibrillation, review of all data and collaboration with the care team. Subjective Subjective The patient was seen and examined at the bedside this morning. Events from the last 24 hours have been reviewed. The patient was doing quite well yesterday clinically. However, during the late afternoon/early evening hours, she apparently experienced a fall from bed. Shortly thereafter, she was found to be more confused, hypotensive and hypoxemic. CT head was unremarkable. Lumbar and pelvic x-rays showed no acute process. Follow-up chest x-ray demonstrated a worsening right upper lobe infiltrate. Repeat blood cultures were sent. White count this morning is elevated at 17,000 with a hemoglobin of 7.8 g/dL and a platelet count of 115,000. Urinalysis sent yesterday was positive for nitrites and leukocyte esterase. The patient was restarted on antimicrobials and unfortunately had to be initiated on Levophed to maintain hemodynamic stability. Objective Data Objective Data The patient's most recent lab work, culture data and imaging studies have all been personally reviewed. Surface echocardiogram demonstrated normal LV size with moderate global LV systolic dysfunction and an ejection fraction of 35%. Vital Signs: Vital Signs Temp Pulse Resp BP Pulse Ox O2 Del Method O2 Flow Rate 100.3 F H 82 22 H 126/49 H 93 Nasal Cannula 10 05/20/22 05:00 05/20/22 05:00 05/20/22 05:00 05/20/22 05:30 05/20/22 05:00 05/20/22 05:00 05/20/22 05:00 FiO2 30 05/17/22 09:00 Oxygen Flow Rate (L/min) [ 4 AMBULATING with Oxygen #3] Oxygen Flow Rate (L/min) [ 3 AMBULATING with Oxygen #2] Oxygen Flow Rate (L/min) [ 2 AMBULATING with Oxygen #1] Oxygen Flow Rate (L/min) [At 2 REST with Oxygen] Oxygen Flow Rate (L/min) 10 Oxygen Delivery Method Nasal Cannula Weight: 88 lb 10.013 oz Body Mass Index (BMI) 20.5 Intake & Output: Intake and Output for Last 24 Hours 05/18/22 05/19/22 05/20/22 23:59 23:59 23:59 Intake Total 307.71 / 307.71 1302.35 / 1304.70 287.56 / 287.56 Output Total 2250 / 2250 550 / 550 Balance -194.29 / -194.29 752.35 / 754.70 287.56 / 287.56 Medical Nutrition Assessment Dietitian: Malnutrition Criteria Met Start: 05/17/22 11:27 Freq: Status: Active Protocol: Document 05/17/22 11:27 (Rec: 05/17/22 11:27 [id number]) Nutrition Malnutrition Evidence of Malnutrition Exists Yes Malnutrition (severe): Acute Illness/Injury Evidenced By Suboptimal Energy Intake ( Severe),Physical Changes ( Severe) Intake Problem Inadequate Oral Intake Etiology related to resp. failure Signs/Symptoms as evidenced by NPO status Status Active Problem Clinical Problem Chronic Disease or Condition Related Malnutrition Etiology severe, chronic malnutrition related to inadequate energy intake Signs/Symptoms as evidenced by severe muscle wasting/fat loss evident in orbital, clavicle, acromion, temporal areas per physical exam; estimated energy intake meeting <75% of estimated energy needs > 3 months Status Active Problem Recommendation Dietitian Recommendations/Changes recommend regular diet as tolerated; consult [employer]ER for chewing/swallowing difficulties as indicated; ensure plus high protein 120mL 4x/day w/ medpass when diet advanced. Lab / Micro Data Attestation: I reviewed the patient's lab results. Result Diagrams: 05/20/22 04:40 05/20/22 04:40 Labs: Laboratory Results - last 24 hr 05/19/22 08:35: POC Glucose 72 L 05/19/22 11:46: POC Glucose 85 05/19/22 16:20: WBC 14.8 H, RBC 2.73 L, Hgb 8.2 L, Hct 26.6 L, MCV 97.4, MCH 30.0, MCHC 30.8 L D, RDW Std Deviation 57.1 H, RDW Coeff of Surinder 16.1 H, Plt Count 105 L, MPV 12.2 H, Immature Gran % (Auto) 0.700, Neut % (Auto) 95.9 H, Lymph % (Auto) 0.9 L, Coke % (Auto) 2.4, Eos % (Auto) 0.0, Baso % (Auto) 0.1, Absolute Neuts (auto) 14.2 H, Absolute Lymphs (auto) 0.14 L, Nucleated RBC % 0, Differential Comment SEE COMMENT, Platelet Estimate MOD DEC, RBC Morphology N CHROM, Anisocytosis 1+, Macrocytosis 1+ 05/19/22 16:20: Sodium 140, Potassium 3.8, Chloride 105, Carbon Dioxide 31.0, Anion Gap 4 L, BUN 41 H, Creatinine 0.69, Estim Creat Clear Calc 32.75, Est GFR (MDRD) Af Amer 107, Est GFR (MDRD) Non-Af 89, BUN/Creatinine Ratio 59.5 H, Glucose 127 H, Calcium 8.4 L 05/19/22 16:20: Lactic Acid 1.2 05/19/22 16:20: Procalcitonin 0.73 H 05/19/22 16:31: POC Glucose 117 H 05/19/22 21:02: POC Glucose 134 H 05/19/22 22:25: Urine Color Yellow, Urine Clarity Sl. Cloudy, Urine pH 7.0, Ur Specific Nazlini 1.010, Urine Protein 30 H, Urine Glucose (UA) Normal, Urine Ketones Negative, Urine Occult Blood 250 H, Urine Nitrite Positive H, Urine Bilirubin Negative, Urine Urobilinogen 1 H, Ur Leukocyte Esterase 500 H, Urine RBC 10-25 SEEN, Urine WBC 0-5 SEEN, Ur Squamous Epith Cells 0-5 SEEN, Urine Bacteria 0 SEEN, Urine Mucus 0 SEEN, Urine Yeast 2+ 05/19/22 22:35: Lactic Acid 1.0 05/20/22 04:40: WBC 17.0 H, RBC 2.51 L, Hgb 7.8 L, Hct 24.4 L, MCV 97.2, MCH 31.1, MCHC 32.0, RDW Std Deviation 57.7 H, RDW Coeff of Surinder 16.3 H, Plt Count 115 L, MPV 11.1, Immature Gran % (Auto) 0.800, Neut % (Auto) 96.1 H, Lymph % (Auto) 0.8 L, Coke % (Auto) 2.1, Eos % (Auto) 0.1, Baso % (Auto) 0.1, Absolute Neuts (auto) 16.3 H, Absolute Lymphs (auto) 0.14 L, Nucleated RBC % 0, Differential Comment SCANNED 05/20/22 04:40: Sodium 138, Potassium 3.5, Chloride 104, Carbon Dioxide 29.0, Anion Gap 5, BUN 35 H, Creatinine 0.49 L, Estim Creat Clear Calc 32.75, Est GFR (MDRD) Af Amer 160, Est GFR (MDRD) Non-Af 132, BUN/Creatinine Ratio 71.7 H, Glucose 160 H, Calcium 7.9 L, Total Bilirubin 0.90, AST 71 H, ALT 160 H, Alkaline Phosphatase 113, Total Protein 5.1 L, Albumin 1.6 L, Globulin 3.5, Albumin/Globulin Ratio 0.5 L Micro: Microbiology 05/14/22 20:05 Sputum, Tracheal Aspirate Gram Stain - Final 05/14/22 20:05 Sputum, Tracheal Aspirate Respiratory Culture - Final Mixed normal respiratory mariano. No Streptococcus pneumoniae, beta-hemolytic Streptococcus or Staphylococcus aureus isolated. 05/11/22 11:50 Blood Culture (Wb) - Right Wrist Blood Culture - Final No growth in 5 days. 05/11/22 11:30 Blood Culture (Wb) #2 - Left Wrist Blood Culture - Final No growth in 5 days. 05/11/22 00:00 Urine Catheter - Bailey Urine Culture - Final Culture exhibits no growth. 05/11/22 19:40 Sputum, Expectorated/Coughed Gram Stain - Final 05/11/22 19:40 Sputum, Expectorated/Coughed Respiratory Culture - Final 05/11/22 21:45 Urine Catheter - Bailey Legionella Antigen - Final 05/11/22 21:45 Urine Catheter - Bailey Streptococcus pneumoniae Antigen (M - Final 05/11/22 11:21 Nasal Secretion SARS-CoV-2 & FLU Antigen (Rapid) - Final ABG Data ABG results: ABG 05/19/22 15:19 Specimen Type ART Sample Site L Brach pH 7.42 Bicarbonate Actual 26.9 H Total CO2 28 Base Excess 2 O2 Saturation 88 L ABG pCO2 41.3 ABG pO2 53 L Jorge Test N/A O2 Delivery Device Cannula Liter Flow 4.0 Radiography Diagnostic Testing: Radiology Impression Brain CT 05/19/22 14:58 IMPRESSION: No acute intracranial abnormality. Chronic involutional and ischemic changes of the brain. Electronically Signed: Hari Soto MD at 16:43 EST , Lumbar Spine X-Ray 05/19/22 15:50 IMPRESSION: No evidence of acute lumbar spinal fracture or spondylolisthesis. Multiple chronic compression deformities of the T10, T12, L1, L2 and L3 vertebral body status post kyphoplasty. Severe multilevel degenerative disc disease and spondylosis. Electronically Signed: Hari Soto MD at 17:00 EST , Pelvis X-Ray 05/19/22 15:50 IMPRESSION: No evidence of displaced pelvic or hip fracture. Electronically Signed: Hari Soto MD at 16:57 EST , Chest X-Ray 05/19/22 22:15 IMPRESSION: Worsening right upper lobe infiltrate. Electronically Signed: Jet Temple DO at 22:40 EST Reading Location ID and State: [facility] / [place] Tel [phone], Service support , Physical Exam Const alert and no apparent distress General Appearance: cooperative Nutritional Appearance: thin HEENT normocephalic, head/scalp atraumatic and moist oral mucous membranes Eyes PERRL, EOMs intact bilaterally and conjunctivae normal Neck supple General: trachea midline Chest Chest Narrative: Increased AP diameter Resp Resp Narrative: Currently receiving an aerosol treatment. Auscultation: diminished lung sounds; Negative for rales, rhonchi or wheezes Cardio regular rate, regular rhythm, S1 normal heart sound and S2 normal heart sound GI normal to inspection, nondistended, normoactive bowel sounds Extremity no clubbing, cyanosis or edema Skin no rashes or lesions noted Neuro CN's II-XII intact bilaterally, moves all extremities and no focal motor deficits Psych Mood & Affect: anxious Charges/Coding Procedures Hospitalists Procedures: [id number] Critial Care 1st Hr
[2022-05-20] MEDS: Sodium Chloride 1 GM Tablet PO ×3 (06:48→20:25)
[2022-05-20 07:27] LABS: Troponin-I HS 140 pg/mL (3.0-54.0)
--- NOTE | 2022-05-20 07:27 | NURSING ---
Red lumen of PICC clogged, would not flush. Cathflo ordered per order from Dr. Guerrero and instilled into lumen and allowed to sit for half an hr per protocol. Upon reassessment, blood return was noted and 30 cc of blood wasted. Flushes easily now.
[2022-05-20 07:44] LABS: BNP,B-Type NATRIURETIC PEPTIDE 191.8 pg/mL (0-100)
[2022-05-20] MEDS: Potassium Chloride Oral Tablet 20 MEQ PO ×2 (08:01→16:57)
[2022-05-20] MEDS: CHLORHEXIDINE GLUC 2% CLOTH 1 EACH TOWELETTE TOPICAL (08:02)
[2022-05-20] MEDS: predniSONE 20 MG Tablet 40 MG PO (08:02)
[2022-05-20 08:26] LABS: Bedside Glucose 136 mg/dL (74-106)
[2022-05-20] MEDS: Loratadine 10 MG Tablet PO (09:50)
[2022-05-20] MEDS: Pantoprazole Sodium 40 MG Tablet PO ×2 (09:51→20:26)
[2022-05-20] MEDS: busPIRone 5 MG Tablet 10 MG PO ×2 (09:51→20:26)
[2022-05-20] MEDS: APIXABAN 5 MG TABLET PO (09:51)
[2022-05-20] MEDS: levoFLOXacin IV 750 MG/150 ML BAG 100 MG IV (09:52)
[2022-05-20] MEDS: Amiodarone 200 MG Tablet PO (09:52)
[2022-05-20] MEDS: Magnesium Chloride 64 MG Delay Rel.Tablet 128 MG PO (09:52)
--- NOTE | 2022-05-20 10:13 | PCM.PN.CARD ---
Subjective Subjective The patient is awake and alert at this time. She denies ongoing symptoms of chest discomfort, worsening shortness of breath, or obvious palpitations. Objective Data Vital Signs: Vital Signs Temp Pulse Resp BP Pulse Ox O2 Del Method O2 Flow Rate 100.1 F H 92 17 127/56 H 96 Nasal Cannula 8 05/20/22 09:00 05/20/22 09:00 05/20/22 09:00 05/20/22 09:15 05/20/22 09:00 05/20/22 09:00 05/20/22 09:00 FiO2 30 05/17/22 09:00 Oxygen Flow Rate (L/min) [ 4 AMBULATING with Oxygen #3] Oxygen Flow Rate (L/min) [ 3 AMBULATING with Oxygen #2] Oxygen Flow Rate (L/min) [ 2 AMBULATING with Oxygen #1] Oxygen Flow Rate (L/min) [At 2 REST with Oxygen] Oxygen Flow Rate (L/min) 8 Oxygen Delivery Method Nasal Cannula Weight: 88 lb 10.013 oz Body Mass Index (BMI) 20.5 Intake & Output: Intake and Output for Last 24 Hours 05/18/22 05/19/22 05/20/22 23:59 23:59 23:59 Intake Total 307.71 / 307.71 1302.35 / 1304.70 378.96 / 378.96 Output Total 2250 / 2250 550 / 550 350 / 350 Balance -194.29 / -194.29 752.35 / 754.70 28.96 / 28.96 Lab / Micro Data Result Diagrams: 05/20/22 04:40 05/20/22 04:40 Labs: Laboratory Results - last 24 hr 05/19/22 08:35: POC Glucose 72 L 05/19/22 11:46: POC Glucose 85 05/19/22 16:20: WBC 14.8 H, RBC 2.73 L, Hgb 8.2 L, Hct 26.6 L, MCV 97.4, MCH 30.0, MCHC 30.8 L D, RDW Std Deviation 57.1 H, RDW Coeff of Surinder 16.1 H, Plt Count 105 L, MPV 12.2 H, Immature Gran % (Auto) 0.700, Neut % (Auto) 95.9 H, Lymph % (Auto) 0.9 L, Love % (Auto) 2.4, Eos % (Auto) 0.0, Baso % (Auto) 0.1, Absolute Neuts (auto) 14.2 H, Absolute Lymphs (auto) 0.14 L, Nucleated RBC % 0, Differential Comment SEE COMMENT, Platelet Estimate MOD DEC, RBC Morphology N CHROM, Anisocytosis 1+, Macrocytosis 1+ 05/19/22 16:20: Sodium 140, Potassium 3.8, Chloride 105, Carbon Dioxide 31.0, Anion Gap 4 L, BUN 41 H, Creatinine 0.69, Estim Creat Clear Calc 32.75, Est GFR (MDRD) Af Amer 107, Est GFR (MDRD) Non-Af 89, BUN/Creatinine Ratio 59.5 H, Glucose 127 H, Calcium 8.4 L 05/19/22 16:20: Lactic Acid 1.2 05/19/22 16:20: Procalcitonin 0.73 H 05/19/22 16:31: POC Glucose 117 H 05/19/22 21:02: POC Glucose 134 H 05/19/22 22:25: Urine Color Yellow, Urine Clarity Sl. Cloudy, Urine pH 7.0, Ur Specific [place] 1.010, Urine Protein 30 H, Urine Glucose (UA) Normal, Urine Ketones Negative, Urine Occult Blood 250 H, Urine Nitrite Positive H, Urine Bilirubin Negative, Urine Urobilinogen 1 H, Ur Leukocyte Esterase 500 H, Urine RBC 10-25 SEEN, Urine WBC 0-5 SEEN, Ur Squamous Epith Cells 0-5 SEEN, Urine Bacteria 0 SEEN, Urine Mucus 0 SEEN, Urine Yeast 2+ 05/19/22 22:35: Lactic Acid 1.0 05/20/22 04:40: WBC 17.0 H, RBC 2.51 L, Hgb 7.8 L, Hct 24.4 L, MCV 97.2, MCH 31.1, MCHC 32.0, RDW Std Deviation 57.7 H, RDW Coeff of Surinder 16.3 H, Plt Count 115 L, MPV 11.1, Immature Gran % (Auto) 0.800, Neut % (Auto) 96.1 H, Lymph % (Auto) 0.8 L, Love % (Auto) 2.1, Eos % (Auto) 0.1, Baso % (Auto) 0.1, Absolute Neuts (auto) 16.3 H, Absolute Lymphs (auto) 0.14 L, Nucleated RBC % 0, Differential Comment SCANNED 05/20/22 04:40: Sodium 138, Potassium 3.5, Chloride 104, Carbon Dioxide 29.0, Anion Gap 5, BUN 35 H, Creatinine 0.49 L, Estim Creat Clear Calc 32.75, Est GFR (MDRD) Af Amer 160, Est GFR (MDRD) Non-Af 132, BUN/Creatinine Ratio 71.7 H, Glucose 160 H, Calcium 7.9 L, Total Bilirubin 0.90, AST 71 H, ALT 160 H, Alkaline Phosphatase 113, Total Protein 5.1 L, Albumin 1.6 L, Globulin 3.5, Albumin/Globulin Ratio 0.5 L 05/20/22 04:40: Troponin I High Sens 140 H* 05/20/22 04:40: B-Natriuretic Peptide 191.8 H 05/20/22 08:00: POC Glucose 136 H ABG Data ABG results: ABG 05/19/22 15:19 Specimen Type ART Sample Site L Brach pH 7.42 Bicarbonate Actual 26.9 H Total CO2 28 Base Excess 2 O2 Saturation 88 L ABG pCO2 41.3 ABG pO2 53 L Jorge Test N/A O2 Delivery Device Cannula Liter Flow 4.0 Cardiology Labs/Tests 05/19/22 15:19: pH 7.42, Bicarbonate Actual 26.9 H, Base Excess 2, O2 Saturation 88 L, ABG pCO2 41.3, ABG pO2 53 L, Jorge Test N/A 05/19/22 16:20: WBC 14.8 H, RBC 2.73 L, Hgb 8.2 L, Hct 26.6 L, MCV 97.4, MCH 30.0, MCHC 30.8 L D, Plt Count 105 L, MPV 12.2 H, Immature Gran % (Auto) 0.700, Neut % (Auto) 95.9 H, Lymph % (Auto) 0.9 L, Love % (Auto) 2.4, Eos % (Auto) 0.0, Baso % (Auto) 0.1, Absolute Neuts (auto) 14.2 H, Nucleated RBC % 0 05/19/22 16:20: Sodium 140, Potassium 3.8, Chloride 105, Carbon Dioxide 31.0, Anion Gap 4 L, BUN 41 H, Creatinine 0.69, Est GFR (MDRD) Af Amer 107, Est GFR (MDRD) Non-Af 89, BUN/Creatinine Ratio 59.5 H, Glucose 127 H, Calcium 8.4 L 05/19/22 16:20: Lactic Acid 1.2 05/19/22 22:25: Urine Color Yellow, Urine Clarity Sl. Cloudy, Urine pH 7.0, Ur Specific [place] 1.010, Urine Protein 30 H, Urine Glucose (UA) Normal, Urine Ketones Negative, Urine Occult Blood 250 H, Urine Nitrite Positive H, Urine Bilirubin Negative, Urine Urobilinogen 1 H, Ur Leukocyte Esterase 500 H, Urine RBC 10-25 SEEN, Urine WBC 0-5 SEEN 05/19/22 22:35: Lactic Acid 1.0 05/20/22 04:40: WBC 17.0 H, RBC 2.51 L, Hgb 7.8 L, Hct 24.4 L, MCV 97.2, MCH 31.1, MCHC 32.0, Plt Count 115 L, MPV 11.1, Immature Gran % (Auto) 0.800, Neut % (Auto) 96.1 H, Lymph % (Auto) 0.8 L, Love % (Auto) 2.1, Eos % (Auto) 0.1, Baso % (Auto) 0.1, Absolute Neuts (auto) 16.3 H, Nucleated RBC % 0 05/20/22 04:40: Sodium 138, Potassium 3.5, Chloride 104, Carbon Dioxide 29.0, Anion Gap 5, BUN 35 H, Creatinine 0.49 L, Est GFR (MDRD) Af Amer 160, Est GFR (MDRD) Non-Af 132, BUN/Creatinine Ratio 71.7 H, Glucose 160 H, Calcium 7.9 L, Total Bilirubin 0.90 05/20/22 04:40: B-Natriuretic Peptide 191.8 H Rhythm: Sinus rhythm, episodes appearing compatible with aberrancy Radiography Diagnostic Testing: Radiology Impression Brain CT 05/19/22 14:58 IMPRESSION: No acute intracranial abnormality. Chronic involutional and ischemic changes of the brain. Electronically Signed: Hari Soto MD at 16:43 EST , Lumbar Spine X-Ray 05/19/22 15:50 IMPRESSION: No evidence of acute lumbar spinal fracture or spondylolisthesis. Multiple chronic compression deformities of the T10, T12, L1, L2 and L3 vertebral body status post kyphoplasty. Severe multilevel degenerative disc disease and spondylosis. Electronically Signed: Hari Soto MD at 17:00 EST , Pelvis X-Ray 05/19/22 15:50 IMPRESSION: No evidence of displaced pelvic or hip fracture. Electronically Signed: Hari Soto MD at 16:57 EST , Chest X-Ray 05/19/22 22:15 IMPRESSION: Worsening right upper lobe infiltrate. Electronically Signed: Jet Temple DO at 22:40 EST , Physical Exam Const alert, oriented x3 and no apparent distress Orientation / Consciousness: awake HEENT normocephalic, head/scalp atraumatic and hearing grossly normal bilaterally Eyes PERRL, EOMs intact bilaterally, conjunctivae normal and no scleral icterus Neck full ROM, supple and no JVD Resp normal respiratory effort Auscultation: rhonchi throughout (Scattered (right greater than left)) Cardio regular rate, regular rhythm, S1 normal heart sound and S2 normal heart sound GI normal to inspection, nondistended, normoactive bowel sounds Extremity no pedal edema Skin no rashes or lesions noted Assessment & Plan Assessment/Plan (1) SVT (supraventricular tachycardia): PLAN: The patient has a history of SVT. It appears that she has been predominantly in sinus rhythm with a question of recurrent paroxysmal atrial fibrillation. At the moment her rate control therapy has been on hold secondary to concerns of hypotension. (2) Paroxysmal atrial fibrillation: PLAN: The patient has a history of PAF. At the present time she is noted to be in sinus rhythm. She does appear to have episodes appearing compatible with aberrant conduction. She will continue medical management as deemed appropriate with respect to rate control therapy as she is able based upon her blood pressure recordings.. She has been placed on anticoagulant therapy. This can be continued unless otherwise contraindicated including concerns of gait disability, falls, injuries, or concerns of her decreasing hemoglobin, etc. (3) Wide-complex tachycardia: PLAN: The patient has had episodes of wide-complex tachycardia. It appears to be irregular. There does not appear to be consistent underlying and repetitive atrial morphology. There is concerned this may be a form of atrial fibrillation with aberrancy. At the moment the patient's rate control therapy with her beta-anmol is on hold secondary to her hypotension. She will continue her antiarrhythmic therapy with her amiodarone. Her cardiac rate and rhythm will be monitored for any other changes that would warrant the need for additional evaluation and/or medical management. In the interim it may be reasonable to reassess her left ventricular wall motion and systolic function and LVEF as to whether there has been a significant change that would contribute to changes with her underlying rate and rhythm, etc. (4) CAD (coronary artery disease): PLAN: The patient has a history of CAD. The details are unknown. At the moment she will continue medical management as best as possible. (5) S/P PTCA (percutaneous transluminal coronary angioplasty): PLAN: The patient is reported as having a history of previous PCI at an outside institution. Again the details are unknown. She will continue medical therapy. (6) Cardiomyopathy: PLAN: The patient has a history of a previous transient cardiomyopathy. It is unclear as to whether this was related to a tachycardiac related cardiomyopathy versus related to a noncardiovascular condition such as her underlying pulmonary condition/hypoxemia or related to any concerns of previous chemotherapy. It appeared that her overall LV systolic function improved. She was reevaluated with a transthoracic echocardiogram earlier in this admission. She was noted to have diminished LV systolic function at the time. Hopefully as her heart rate and rhythm have come under better control her overall LV systolic function will once again improved. (7) AAA (abdominal aortic aneurysm): PLAN: The patient has a history of a AAA. Apparently this is undergone repair in the past based upon her past medical history. (8) Pneumonia: QUALIFIERS: Pneumonia type: due to Pneumococcus Laterality: right Lung location: middle lobe of lung Qualified Code(s): J13 - Pneumonia due to Streptococcus pneumoniae PLAN: The patient is being treated for underlying pneumonia superimposed upon her history of lung carcinoma. She is no longer mechanically intubated. She is continuing medical management. She has continued O2 support. (9) History of lung cancer: PLAN: The patient has a history of lung carcinoma. She will continue evaluation care per hematology and oncology. Apparently there has been discussions with the patient regarding the possibility of palliative/hospice care. According to the [facility] ICU staff she has declined this option at this time. (10) Anemia: QUALIFIERS: Anemia type: unspecified type Qualified Code(s): D64.9 - Anemia, unspecified PLAN: The patient remains with anemia. Her hemoglobin has continued to decline. There is concern as to whether this is a delusional effect. At the same time she has been monitoring for any obvious hemorrhagic issues. Depending upon her hemoglobin levels consideration may have to be given to discontinuation of her anticoagulant therapy. Addt'l Comments The patient's case was discussed and reviewed with the patient and Dr. Hernandez. This note was generated using a voice recognition system and there may be incorrect words, spelling or punctuation that were not noted when reviewing the office note prior to saving. Procedure Criteria Type of Procedure Procedure Type: Elective Elective Risks - COVID COVID Risk Discussion: The surgeon/proceduralist and patient have discussed in detail the risk of exposure to and/or potential harm posed by the COVID-19 virus with having a surgery/procedure at this time versus the risk of delaying the surgery/procedure. It is not possible to know either the risk of delaying the surgery or procedure or chance of getting an infection with perfect accuracy, but a joint decision was made between the patient and the surgeon/proceduralist to proceed at this time with the scheduled surgery/procedure as indicated on the consent form.
[2022-05-20] MEDS: morphine SR 15 MG Tablet PO ×2 (10:26→20:25)
[2022-05-20] MEDS: Ipratropium 0.5 MG/2.5 ML SOLUTION INHALATION (11:02)
[2022-05-20] MEDS: Insulin Lispro 100 UNIT/ML INSULN.PEN SC ×3 (11:52→20:29)
--- NOTE | 2022-05-20 12:06 | CASEMGMT ---
Social Work SW spoke with [facility] who states they are uncertain if they can accept as pt may not be able to tolerate the 3 sessions of therapy a day. Will continue to follow and reassess on Monday. Phone call to pt son Himanshu and MELISA Dial
[2022-05-20] MEDS: Acetaminophen 325 MG Tablet 650 MG PO ×2 (12:07→22:20)
[2022-05-20] MEDS: oxyCODONE 5 MG Tablet 10 MG PO ×2 (12:07→22:21)
[2022-05-20 12:16] LABS: Bedside Glucose 184 mg/dL (74-106)
[2022-05-20] MEDS: 0.9% Saline Lock 10 ML Syringe IV (12:45)
[2022-05-20] MEDS: Ondansetron 4 MG/2 ML Vial IV (12:45)
--- NOTE | 2022-05-20 13:22 | EKG12_ITS ---
Test Reason : CP Blood Pressure : / mmHG Vent. Rate : 118 BPM Atrial Rate : 118 BPM P-R Int : 158 ms QRS Dur : 136 ms QT Int : 428 ms P-R-T Axes : 066 042 052 degrees QTc Int : 599 ms Sinus tachycardia Right bundle branch block Abnormal ECG Confirmed by PAULINA HASKINS, AARTI ([id number]), news video editor JESSIE HORNE ([id number]) on 05/25/2022 10:21:42 AM Referred By: PAULINA Confirmed By:AARTI GALLARDO MD
--- NOTE | 2022-05-20 16:20 | PCM.PN.HOSP ---
Subjective Subjective Blood pressure initially responded to IV fluid bolus however it dropped again and we did end up starting Levophed last night. Antibiotics reinitiated and is currently on 10 mcg of Levophed per minute at this time. I did discuss with her that she is in no way shape or form close to going home. She voiced disappointment but did states she understood. We did rediscuss overall prognosis and CODE STATUS and she wishes to remain aggressive with her care. She is bound and determined to go home at the time of discharge but I did explain to her again that that is probably not a good decision based on her level of function at this time. She will not be discharged over the weekend and we discussed this as well. Objective Data Objective Data Vital Signs: Vital Signs Temp Pulse Resp BP Pulse Ox O2 Del Method O2 Flow Rate 99.2 F H 108 H 20 H 80/42 L 92 Nasal Cannula 10 05/20/22 15:00 05/20/22 15:00 05/20/22 15:00 05/20/22 15:15 05/20/22 15:00 05/20/22 15:00 05/20/22 15:00 FiO2 30 05/17/22 09:00 Oxygen Flow Rate (L/min) [ 4 AMBULATING with Oxygen #3] Oxygen Flow Rate (L/min) [ 3 AMBULATING with Oxygen #2] Oxygen Flow Rate (L/min) [ 2 AMBULATING with Oxygen #1] Oxygen Flow Rate (L/min) [At 2 REST with Oxygen] Oxygen Flow Rate (L/min) 10 Oxygen Delivery Method Nasal Cannula Weight: 40.2 kg Body Mass Index (BMI) 20.5 Intake & Output: Intake and Output for Last 24 Hours 05/18/22 05/19/22 05/20/22 23:59 23:59 23:59 Intake Total 307.71 / 307.71 1302.35 / 1304.70 552.30 / 552.30 Output Total 2250 / 2250 550 / 550 350 / 350 Balance -1942.29 / -194.29 752.35 / 754.70 202.30 / 202.30 Medical Nutrition Assessment Dietitian: Malnutrition Criteria Met Start: 05/17/22 11:27 Freq: Status: Active Protocol: Document 05/20/22 10:56 AG (Rec: 05/20/22 10:56 AG [id number]) Nutrition Malnutrition Evidence of Malnutrition Exists Yes Malnutrition (severe): Acute Illness/Injury Evidenced By Suboptimal Energy Intake ( Severe),Physical Changes ( Severe) Intake Problem Inadequate Oral Intake Etiology related to resp. failure Signs/Symptoms as evidenced by NPO status Status Resolved Problem Clinical Problem Chronic Disease or Condition Related Malnutrition Etiology severe, chronic malnutrition related to inadequate energy intake Signs/Symptoms as evidenced by severe muscle wasting/fat loss evident in orbital, clavicle, acromion, temporal areas per physical exam; estimated energy intake meeting <75% of estimated energy needs > 3 months Status Active Problem Recommendation Dietitian Recommendations/Changes continue sodium restricted w/ 1250mL fluid restriction per hospitalist; will fortify foods when possible. Will offer ensure plus high protein 120mL 4x/day w/ medpass although pt currently refusing . Lab / Micro Data Result Diagrams: 05/20/22 04:40 05/20/22 04:40 Labs: Laboratory Results - last 24 hr 05/19/22 16:20: WBC 14.8 H, RBC 2.73 L, Hgb 8.2 L, Hct 26.6 L, MCV 97.4, MCH 30.0, MCHC 30.8 L D, RDW Std Deviation 57.1 H, RDW Coeff of Surinder 16.1 H, Plt Count 105 L, MPV 12.2 H, Immature Gran % (Auto) 0.700, Neut % (Auto) 95.9 H, Lymph % (Auto) 0.9 L, Andrews % (Auto) 2.4, Eos % (Auto) 0.0, Baso % (Auto) 0.1, Absolute Neuts (auto) 14.2 H, Absolute Lymphs (auto) 0.14 L, Nucleated RBC % 0, Differential Comment SEE COMMENT, Platelet Estimate MOD DEC, RBC Morphology N CHROM, Anisocytosis 1+, Macrocytosis 1+ 05/19/22 16:20: Sodium 140, Potassium 3.8, Chloride 105, Carbon Dioxide 31.0, Anion Gap 4 L, BUN 41 H, Creatinine 0.69, Estim Creat Clear Calc 32.75, Est GFR (MDRD) Af Amer 107, Est GFR (MDRD) Non-Af 89, BUN/Creatinine Ratio 59.5 H, Glucose 127 H, Calcium 8.4 L 05/19/22 16:20: Lactic Acid 1.2 12/29/22 16:20: Procalcitonin 0.73 H 05/19/22 16:31: POC Glucose 117 H 05/19/22 21:02: POC Glucose 134 H 05/19/22 22:25: Urine Color Yellow, Urine Clarity Sl. Cloudy, Urine pH 7.0, Ur Specific [place] 1.010, Urine Protein 30 H, Urine Glucose (UA) Normal, Urine Ketones Negative, Urine Occult Blood 250 H, Urine Nitrite Positive H, Urine Bilirubin Negative, Urine Urobilinogen 1 H, Ur Leukocyte Esterase 500 H, Urine RBC 10-25 SEEN, Urine WBC 0-5 SEEN, Ur Squamous Epith Cells 0-5 SEEN, Urine Bacteria 0 SEEN, Urine Mucus 0 SEEN, Urine Yeast 2+ 05/19/22 22:35: Lactic Acid 1.0 05/20/22 04:40: WBC 17.0 H, RBC 2.51 L, Hgb 7.8 L, Hct 24.4 L, MCV 97.2, MCH 31.1, MCHC 32.0, RDW Std Deviation 57.7 H, RDW Coeff of Surinder 16.3 H, Plt Count 115 L, MPV 11.1, Immature Gran % (Auto) 0.800, Neut % (Auto) 96.1 H, Lymph % (Auto) 0.8 L, Andrews % (Auto) 2.1, Eos % (Auto) 0.1, Baso % (Auto) 0.1, Absolute Neuts (auto) 16.3 H, Absolute Lymphs (auto) 0.14 L, Nucleated RBC % 0, Differential Comment SCANNED 05/20/22 04:40: Sodium 138, Potassium 3.5, Chloride 104, Carbon Dioxide 29.0, Anion Gap 5, BUN 35 H, Creatinine 0.49 L, Estim Creat Clear Calc 32.75, Est GFR (MDRD) Af Amer 160, Est GFR (MDRD) Non-Af 132, BUN/Creatinine Ratio 71.7 H, Glucose 160 H, Calcium 7.9 L, Total Bilirubin 0.90, AST 71 H, ALT 160 H, Alkaline Phosphatase 113, Total Protein 5.1 L, Albumin 1.6 L, Globulin 3.5, Albumin/Globulin Ratio 0.5 L 05/20/22 04:40: Troponin I High Sens 140 H* 05/20/22 04:40: B-Natriuretic Peptide 191.8 H 05/20/22 08:00: POC Glucose 136 H 05/20/22 11:44: POC Glucose 184 H Micro: Microbiology 05/14/22 20:05 Sputum, Tracheal Aspirate Gram Stain - Final 05/14/22 20:05 Sputum, Tracheal Aspirate Respiratory Culture - Final Mixed normal respiratory mariano. No Streptococcus pneumoniae, beta-hemolytic Streptococcus or Staphylococcus aureus isolated. 05/11/22 11:50 Blood Culture (Wb) - Right Wrist Blood Culture - Final No growth in 5 days. 05/11/22 11:30 Blood Culture (Wb) #2 - Left Wrist Blood Culture - Final No growth in 5 days. 05/11/22 00:00 Urine Catheter - Bailey Urine Culture - Final Culture exhibits no growth. 05/11/22 19:40 Sputum, Expectorated/Coughed Gram Stain - Final 05/11/22 19:40 Sputum, Expectorated/Coughed Respiratory Culture - Final 05/11/22 21:45 Urine Catheter - Bailey Legionella Antigen - Final 05/11/22 21:45 Urine Catheter - Bailey Streptococcus pneumoniae Antigen (M - Final 05/11/22 11:21 Nasal Secretion SARS-CoV-2 & FLU Antigen (Rapid) - Final Radiography Diagnostic Testing: Radiology Impression Brain CT 05/19/22 14:58 IMPRESSION: No acute intracranial abnormality. Chronic involutional and ischemic changes of the brain. Electronically Signed: Hari Soto MD at 16:43 EST Reading Location ID and State: [facility] / [place] Tel , Service support , Lumbar Spine X-Ray 05/19/22 15:50 IMPRESSION: No evidence of acute lumbar spinal fracture or spondylolisthesis. Multiple chronic compression deformities of the T10, T12, L1, L2 and L3 vertebral body status post kyphoplasty. Severe multilevel degenerative disc disease and spondylosis. Electronically Signed: Hari Soto MD at 17:00 EST , Pelvis X-Ray 05/19/22 15:50 IMPRESSION: No evidence of displaced pelvic or hip fracture. Electronically Signed: Hari Soto MD at 16:57 EST , Echocardiogram 05/19/22 18:11 Interpretation Summary The study was technically difficult. Limited views were obtained. Left ventricular systolic function is normal. The estimated ejection fraction is 55 %. Mildly dilated right ventricle. Mild global right ventricular systolic dysfunction. The left atrium is mildly enlarged. There is moderate mitral annular calcification. Mild diffuse mitral valve thickening. Mild focal aortic valve calcification. Small pericardial effusion. There are no echocardiographic indications of cardiac tamponade. Unable to assess diastolic dysfunction. Ordering Physician: Vic Reyes Referring Physician: SUZI BERGER Performed By: Farideh David RCS Chest X-Ray 05/19/22 22:15 IMPRESSION: Worsening right upper lobe infiltrate. Electronically Signed: Jet Temple DO at 22:40 EST , Physical Exam Const alert and oriented x3 Constitutional Narrative: Frail, older white female, cachectic, sitting up in bed, watching television, appears ill but nontoxic HEENT head/scalp atraumatic, moist oral mucous membranes and oropharynx normal HEENT Narrative: Edentulous, Mallampati 1, no thrush Eyes PERRL Resp normal respiratory effort, no retractions and no use of accessory muscles Resp Narrative: Severely diminished diffusely, few scattered rhonchi Auscultation: rhonchi; Negative for crackles or wheezes Cardio regular rate, regular rhythm, S1 normal heart sound, S2 normal heart sound, no murmurs, no rub, no gallops and no clicks GI normal to inspection, nondistended, normoactive bowel sounds, soft to palpation, non-tender and non-distended GI Narrative: Scaphoid abdomen Extremity no clubbing, cyanosis or edema Extremity Narrative: 2+ pedal pulses Neuro oriented x3, moves all extremities and no focal motor deficits Neuro Narrative: Moves extremities spontaneously but currently not following commands secondary to intubation/sedation Sensorium / Orientation: awake, alert, oriented to person, oriented to place and oriented to time Speech: speech normal Psych Psych Narrative: Appropriately interactive, no significant anxiety at this time Mood & Affect: anxious Assessment & Plan Assessment/Plan (1) Cardiomyopathy: (2) SVT (supraventricular tachycardia): (3) Acute respiratory failure with hypoxia: (4) Severe protein-calorie malnutrition: (5) Pneumonia: QUALIFIERS: Pneumonia type: due to Pneumococcus Laterality: right Lung location: middle lobe of lung Qualified Code(s): J13 - Pneumonia due to Streptococcus pneumoniae (6) Anemia: QUALIFIERS: Anemia type: unspecified type Qualified Code(s): D64.9 - Anemia, unspecified (7) Shock: PLAN: Plan Acute on chronic hypoxic respiratory failure-Multifactorial(suspected pneumonia/HFrEF/lung CA/COPD) -Slowly improving clinically -No sepsis present at all during this hospitalization -Patient was weaned down to 3 L nasal cannula however after the event where she took her oxygen off her oxygen requirements increased -Continue steroids but changed to oral -Continue bronchodilators -Antimicrobials have been completed -COVID and respiratory panel are negative -Convert Lasix to p.o. -Pulmonary medicine following-appreciate input Undifferentiated shock -Hypotension developed late yesterday afternoon that was initially somewhat responsive to 1 L of fluids however ultimately required vasopressor support for unstable hemodynamics -Etiology is unclear at this time -Mostly monitor hemoglobin -Had been diuresed so could be related to volume depletion however we did give her some IV fluids and she was only minimally responsive -UA also looks possibly infected -Continue broad-spectrum antibiotics -Await repeat blood and urine cultures -Levophed currently at 10 mcg/min and will continue to maintain MAP of 65 or better -Diuretics and antihypertensives are on hold Compensated heart failure with reduced ejection fraction -Newly worsened EF--> again--> recovered from 12/2021 admission on most recent echo prior to this admission -Was decompensated during this hospital course but now compensated -Hold Lasix -Hold metoprolol and lisinopril -Echocardiogram from 05/12/2022 showed an EF of 35% with a mildly dilated RV, mild global right ventricular dysfunction, left atrial enlargement, mild mitral valve insufficiency, trivial pericardial effusion with no evidence of tamponade, right ventricular systolic pressure to 35 mmHg -Patient did have follow-up echo after August admission where her EF was noted to be 35% in early January that showed recovery of her EF to 60%, it appears her EF is somewhat labile -Follows with Dr. Champion at [facility] for cardiology at baseline -Cardiology is following-appreciate input Newly developed hypotension -Etiology is unclear as it was a precipitous drop in blood pressures were fine and stable this morning -We will hold all oral antihypertensives -Fluid bolus in progress if this does not help we will need to start pressors -Check CBC to rule out any bleeding as she is anticoagulated and had a fall next -check BMP -Patient with negative blood cultures from 05/11/2022, negative respiratory culture -Got her last dose of Levaquin today -White count has trended back up to 17 and left shift is present -Procalcitonin was 0.73 A. fib with RVR/PAF -Patient has been in and out of A. fib during her hospital stay -Remains in normal sinus rhythm -Amiodarone 200 mg daily -Hold metoprolol with blood pressures being low -Echo as above -Continue apixaban -Slight trend down in hemoglobin but also status post fluids with discontinuation of diuretics -Repeat hemoglobin and if stable will continue to monitor closely if drop in hemoglobin will hold Eliquis Transaminitis -Much improved today -Repeat lab in a.m. 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 has reinitiated -Continue home salt tablets -IV diuretics on hold -BMP in a.m. Small cell lung CA -Follows with Dr. Corbett -Currently in remission CAD with history of PR -History of stent placement -Patient is currently not on any statin -Continue home statin -Previous stents were remote at [facility] Hyperlipidemia -Continue home atorvastatin 10 mg nightly COPD/emphysema -As needed albuterol -Scheduled DuoNebs -Hold home Trelegy Ellipta and restart at discharge -Pulmonary medicine is following Severe malnutrition -Continue supplements -Encourage p.o. intake with liberal diet -Dietitian following Osteoporosis -Restart alendronate at discharge Chronic pain -Oxy IR 10 mg 3 times daily via OG -Continue scheduled morphine as ordered GERD with history of GI bleed -Restart p.o. Protonix 40 twice daily -Continue Carafate Anxiety -Continue added BuSpar -Ativan made symptoms worse -Continue Risperdal 1 mg p.o. twice daily as the patient did say this seemed to help her -Encouraged outpatient psychiatry follow-up for anxiety and patient is resistant--> we will make referral discharge DVT prophylaxis -SCDs -Chemoprophylaxis on hold secondary to thrombocytopenia and anemia CODE STATUS -Full code Disposition: Overall prognosis is fairly poor as patient is very frail and severely malnourished. Anxiety contributes to respiratory distress. Very debilitated but reluctant to be placed. Refused palliative care at her previous admission. Will discuss further patient is likely not to be discharged until next week as clinical status has deteriorated in last 24 hours Charges/Coding Visit Charges Inpatient E&M: 08370 Subs Hosp L2
[2022-05-20 17:30] LABS: Bedside Glucose 154 mg/dL (74-106)
[2022-05-20 17:40] LABS: Hematocrit 23.3 % (37-47); Hemoglobin 7.3 g/dL (12.0-15.0)
[2022-05-20] MEDS: Atorvastatin Calcium 10 MG Tablet PO (20:25)
[2022-05-20] MEDS: RisperiDONE 1 MG Tablet PO (20:27)
[2022-05-20 21:06] LABS: Bedside Glucose 173 mg/dL (74-106)
[2022-05-20] MEDS: Menthol/Lanolin/Calamine/Znox 113 GM Tube 1 APPLIC TOPICAL (22:21)
[2022-05-21] VITALS (51 sets, daily range): BP systolic 86–133; BP diastolic 42–96; PULSE 8–100; RESP 11–22; TEMP 36.7–37.6; O2SAT 90–100
[2022-05-21] MEDS: Alteplase 2 MG/2 ML Vial IV (02:18)
[2022-05-21] MEDS: Ipratropium/Albuterol Sulfate 3 ML AMPUL.NEB INHALATION ×4 (02:21→23:23)
[2022-05-21 04:10] LABS: Absolute Lymphocyte Count 0.17 X10^3/uL (0.83-4.51); Absolute Neutrophil Count 9.6 X10^3/uL (2.0-7.7); Eosinophil# 0.01 X10^3/uL; Eosinophils% 0.1 % (0-5); Hemoglobin 6.1 g/dL (12.0-15.0); Lymphocyte # 0.17 X10^3/ul (0.83-4.51); Lymphocyte % 1.7 % (19-41); Mean Corp Hgb Conc 30.5 g/dL (32-36); Mean Corpuscular Hgb 30.2 pg (27.0-32.0); Mean Platelet Vol. 11.3 fl (6.2-12.0); Monocyte% 2.9 % (0-10); NRBC Flagged by Analyzer 0 % (0-5); Neutrophil # 9.63 X10^3/uL (2.7-7.7); Neutrophil % 94.6 % (47-70); POSITIVE COUNT YES; POSITIVE DIFFERENTIAL YES; Platelet Count 91 K/mm3 (150-450); RBC Distribution Width CV 16.1 % (11.6-14.6); RBC Distribution Width SD 58.3 fl (35.1-43.9); Red Blood Count 2.02 M/mm3 (4.2-5.4); White Blood Count 10.2 K/mm3 (4.4-11.0)
[2022-05-21 04:31] LABS: Differential Indicated SCAN CRITERIA MET
[2022-05-21 04:36] LABS: ALB/GLOB Ratio 0.4 RATIO (0.9-2.4); AST(SGOT) 134 U/L (15-37); Alanine Aminotransfer ALT/SGPT 207 U/L (13-56); Albumin, Serum 1.5 g/dL (3.2-5.0); Alkaline Phosphatase 337 U/L (45-117); Anion Gap 3 (5-15); BUN 29 mg/dL (7-18); BUN/Creat Ratio 64.4 RATIO (10-20); Chloride 106 mmol/L (98-107); Creatinine, Serum 0.45 mg/dL (0.55-1.02); Differential Comment SCANNED; EST Glomerular Filtration Rate 145 mL/min (>60); Est Glom Filt Rate - Afr Amer 176 mL/min (>60); Estimated Creatinine Clearance 33.06 ml/min; Globulin 3.4 g/dL (2.2-4.2); Glucose 133 mg/dL (74-106); Phosphorus 2.2 mg/dL (2.5-4.9); Potassium 3.5 mmol/L (3.5-5.1); Protein, Total 4.9 g/dL (6.4-8.2); Sodium Level 140 mmol/L (136-145)
[2022-05-21] MEDS: Acetaminophen 325 MG Tablet 650 MG PO (04:58)
[2022-05-21] MEDS: oxyCODONE 5 MG Tablet 10 MG PO ×3 (04:59→14:23)
[2022-05-21] MEDS: Menthol/Lanolin/Calamine/Znox 113 GM Tube 1 APPLIC TOPICAL ×3 (04:59→22:58)
[2022-05-21] MEDS: Sodium Chloride 1 GM Tablet PO ×3 (05:00→22:57)
--- NOTE | 2022-05-21 06:47 | PN.CC_ITS ---
Assessment & Plan Assessment/Plan (1) Acute respiratory failure with hypoxia: (2) Pneumonia: QUALIFIERS: Pneumonia type: due to Pneumococcus Laterality: right Lung location: middle lobe of lung Qualified Code(s): J13 - Pneumonia due to Streptococcus pneumoniae (3) History of lung cancer: (4) Severe protein-calorie malnutrition: PLAN: Plan RECOMMENDATIONS: 1. Continue to wean supplemental oxygen as tolerated. 2. Agree with broad-spectrum antimicrobial coverage, given acute decompensation. 3. Await results of repeat blood and urine cultures. 4. Hold diuretics and antihypertensives for now. 5. Continue to wean Levophed to maintain a mean arterial pressure at or above 65 mmHg. 6. Continue scheduled BuSpar twice daily to address underlying anxiety. 7. Continue to monitor H&H daily. Transfuse if hemoglobin drops below 7 g/dL. Transfuse 1 unit of packed red blood cells 8. Continue scheduled bronchodilators. Wean p.o. steroids over the next 12 to 14 days. 9. Hold anticoagulation until GI work-up can be performed. Continue PPI therapy. 10. Encourage incentive spirometer use and mobilize patient as tolerated. IMPRESSIONS: 1.??Acute hypoxic respiratory failure in the setting of COPD and history of small cell lung cancer The patient presented with an acute COPD exacerbation which appears to be secondary to a right upper lobe infiltrate. The patient has slowly improved from a respiratory perspective. She remains on appropriate antimicrobials, sc heduled bronchodilators and steroids. Although the patient was able to be extubated on 05/14, she decompensated from a respiratory perspective approximately 12 hours later and had to be reintubated. Clinical concern that the patient's underlying anemia and anxiety may have contributed to her decom pensation. With further volume optimization and stabilization of her anemia status, the patient was able to be extubated once again on May 17. She had been doing well from a respiratory perspective until May 19, when she fell and developed worsening hypoxia and hypotension. The patient will be maintained on supplemental oxygen to maintain saturations at or above 90%. Her antimicrobials have been broadened pending further infectious work-up. Plan to continue scheduled anxiolytics and pain medications, per home regimen. Patient appears to be stabilizing. 2. Undifferentiated shock The patient developed hypotension earlier this week, ultimately requiring the initiation of vasopressor support. The exact etiology for her hypotension is not entirely clear. She had been receiving diuretics and hemoglobin decreased so intravascular volume depletion is a possibility. However, the patient did receive some supplemental IV fluid hydration without significant improvement in her hemodynamic status. In addition to the aforementioned, an underlying urinary tract source of infection is also possible. Therefore, urine cultures have been sent. The patient will remain on empiric broad-spectrum antimicrobials and Levophed will be continued to maintain a mean arterial pressure at or above 65 mmHg. 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 The patient will be continued on appropriate PPI therapy. There are no overt signs of blood loss. Patient likely requires a GI work-up prior to reinitiation of anticoagulation 4.??Cardiomyopathy/paroxysmal A. fib/SVT Continue medical management per cardiology recommendations. 5.??Chronic pain syndrome/osteoporosis/GERD with history of GI bleed/CAD/debility Complicates care, management, recovery and prognosis.? Continue supportive measures as noted above. Physical therapy to work with the patient. TIME: 32 minutes of critical care time, independent of procedures, was spent addressing the patient's acute hypoxemic respiratory failure, undifferentiated shock, anemia, cardiomyopathy, paroxysmal atrial fibrillation, review of all data and collaboration with the care team. Subjective Subjective Patient did okay overnight. Patient did not have a bowel movement overnight. Patient did require Cathflo for PICC patency. Patient did have to be placed on Levophed overnight. Patient's labs this morning showed decreased hemoglobin and patient is nervous about getting a blood transfusion. No acute events reported prior to initiation of Levophed. Patient has not had any clinical bleeding per nursing. Objective Data Objective Data Vital Signs: Vital Signs Temp Pulse Resp BP Pulse Ox O2 Del Method O2 Flow Rate 37.1 C 71 19 H 103/52 L 100 Nasal Cannula 5 05/21/22 06:00 05/21/22 06:00 05/21/22 06:00 05/21/22 06:00 05/21/22 06:00 05/21/22 06:00 05/21/22 06:00 FiO2 30 05/17/22 09:00 Oxygen Flow Rate (L/min) [ 4 AMBULATING with Oxygen #3] Oxygen Flow Rate (L/min) [ 3 AMBULATING with Oxygen #2] Oxygen Flow Rate (L/min) [ 2 AMBULATING with Oxygen #1] Oxygen Flow Rate (L/min) [At 2 REST with Oxygen] Oxygen Flow Rate (L/min) 5 Oxygen Delivery Method Nasal Cannula Weight: 41.8 kg Body Mass Index (BMI) 20.5 Intake & Output: Intake and Output for Last 24 Hours 05/19/22 05/20/22 05/21/22 23:59 23:59 23:59 Intake Total 1302.35 / 1304.70 611.15 / 854.95 660.82 / 660.82 Output Total 550 / 550 900 / 1350 800 / 800 Balance 752.35 / 754.70 -288.85 / -495.05 -139.18 / -139.18 Medical Nutrition Assessment Dietitian: Malnutrition Criteria Met Start: 05/17/22 11:27 Freq: Status: Active Protocol: Document 05/20/22 10:56 (Rec: 05/20/22 10:56 [id number]) Nutrition Malnutrition Evidence of Malnutrition Exists Yes Malnutrition (severe): Acute Illness/Injury Evidenced By Suboptimal Energy Intake ( Severe),Physical Changes ( Severe) Intake Problem Inadequate Oral Intake Etiology related to resp. failure Signs/Symptoms as evidenced by NPO status Status Resolved Problem Clinical Problem Chronic Disease or Condition Related Malnutrition Etiology severe, chronic malnutrition related to inadequate energy intake Signs/Symptoms as evidenced by severe muscle wasting/fat loss evident in orbital, clavicle, acromion, temporal areas per physical exam; estimated energy intake meeting <75% of estimated energy needs > 3 months Status Active Problem Recommendation Dietitian Recommendations/Changes continue sodium restricted w/ 1250mL fluid restriction per hospitalist; will fortify foods when possible. Will offer ensure plus high protein 120mL 4x/day w/ medpass although pt currently refusing . Lab / Micro Data Attestation: I reviewed the patient's lab results. Result Diagrams: 05/21/22 03:50 05/21/22 03:50 Labs: Laboratory Results - last 24 hr 05/20/22 04:40: Troponin I High Sens 140 H* 05/20/22 04:40: B-Natriuretic Peptide 191.8 H 05/20/22 08:00: POC Glucose 136 H 05/20/22 11:44: POC Glucose 184 H 05/20/22 16:55: POC Glucose 154 H 05/20/22 17:30: Hgb 7.3 L, Hct 23.3 L 05/20/22 20:29: POC Glucose 173 H 05/21/22 03:50: WBC 10.2, RBC 2.02 L, Hgb 6.1 L, Hct 20.0 L, MCV 99.0, MCH 30.2, MCHC 30.5 L, RDW Std Deviation 58.3 H, RDW Coeff of Surinder 16.1 H, Plt Count 91 L, MPV 11.3, Immature Gran % (Auto) 0.700, Neut % (Auto) 94.6 H, Lymph % (Auto) 1.7 L, [place] % (Auto) 2.9, Eos % (Auto) 0.1, Baso % (Auto) 0.0, Absolute Neuts (auto) 9.6 H, Absolute Lymphs (auto) 0.17 L, Nucleated RBC % 0, Differential Comment SCANNED 05/21/22 03:50: Sodium 140, Potassium 3.5, Chloride 106, Carbon Dioxide 31.0, Anion Gap 3 L, BUN 29 H, Creatinine 0.45 L, Estim Creat Clear Calc 33.06, Est GFR (MDRD) Af Amer 176, Est GFR (MDRD) Non-Af 145, BUN/Creatinine Ratio 64.4 H, Glucose 133 H, Calcium 8.0 L, Phosphorus 2.2 L, Magnesium 2.0, Total Bilirubin 0.40, AST 134 H, ALT 207 H, Alkaline Phosphatase 337 H, Total Protein 4.9 L, Albumin 1.5 L, Globulin 3.4, Albumin/Globulin Ratio 0.4 L Micro: Microbiology 05/14/22 20:05 Sputum, Tracheal Aspirate Gram Stain - Final 05/14/22 20:05 Sputum, Tracheal Aspirate Respiratory Culture - Final Mixed normal respiratory mariano. No Streptococcus pneumoniae, beta-hemolytic Streptococcus or Staphylococcus aureus isolated. 05/11/22 11:50 Blood Culture (Wb) - Right Wrist Blood Culture - Final No growth in 5 days. 05/11/22 11:30 Blood Culture (Wb) #2 - Left Wrist Blood Culture - Final No growth in 5 days. 05/11/22 00:00 Urine Catheter - Bailey Urine Culture - Final Culture exhibits no growth. 05/11/22 19:40 Sputum, Expectorated/Coughed Gram Stain - Final 05/11/22 19:40 Sputum, Expectorated/Coughed Respiratory Culture - Final 05/11/22 21:45 Urine Catheter - Bailey Legionella Antigen - Final 05/11/22 21:45 Urine Catheter - Bailey Streptococcus pneumoniae Antigen (M - Final 05/11/22 11:21 Nasal Secretion SARS-CoV-2 & FLU Antigen (Rapid) - Final Radiography Diagnostic Testing: Radiology Impression Echocardiogram 05/19/22 18:11 Interpretation Summary The study was technically difficult. Limited views were obtained. Left ventricular systolic function is normal. The estimated ejection fraction is 55 %. Mildly dilated right ventricle. Mild global right ventricular systolic dysfunction. The left atrium is mildly enlarged. There is moderate mitral annular calcification. Mild diffuse mitral valve thickening. Mild focal aortic valve calcification. Small pericardial effusion. There are no echocardiographic indications of cardiac tamponade. Unable to assess diastolic dysfunction. Ordering Physician: Vic Reyes Referring Physician: SUZI BERGER Performed By: Farideh David RCS Physical Exam Const alert and no apparent distress Constitutional Narrative: No conversational dyspnea General Appearance: cooperative and frail Nutritional Appearance: thin HEENT normocephalic, head/scalp atraumatic and moist oral mucous membranes HEENT Narrative: Alopecia noted Eyes PERRL, EOMs intact bilaterally, conjunctivae normal and no scleral icterus Neck supple General: trachea midline Chest Chest: abnormal inspection of the chest increased A-P diameter Resp normal respiratory effort, no retractions and no use of accessory muscles Auscultation: diminished lung sounds; Negative for rales, rhonchi or wheezes Cardio regular rate, regular rhythm, S1 normal heart sound, S2 normal heart sound, no murmurs, no rub, no gallops, no clicks and no JVD GI normal to inspection, nondistended, normoactive bowel sounds, soft to palpation, non-tender and non-distended Extremity no clubbing, cyanosis or edema Skin no rashes or lesions noted, no wounds, skin turgor normal, no jaundice, no petechiae and no mottling Hair: total alopecia Neuro CN's II-XII intact bilaterally, moves all extremities and no focal motor deficits Neuro Narrative: Alert and able to follow commands appropriately. Sensorium / Orientation: sedated on vent Speech: speech normal Psych Activity / Motor Behavior: restless Mood & Affect: anxious Charges/Coding Procedures Hospitalists Procedures: 84094 Critial Care 1st Hr
[2022-05-21] MEDS: morphine SR 15 MG Tablet PO ×2 (08:33→22:58)
[2022-05-21] MEDS: Pantoprazole Sodium 40 MG Tablet PO ×2 (08:34→22:58)
[2022-05-21] MEDS: busPIRone 5 MG Tablet 10 MG PO ×2 (08:34→22:58)
[2022-05-21] MEDS: Magnesium Chloride 64 MG Delay Rel.Tablet 128 MG PO (08:35)
[2022-05-21] MEDS: Senna/Docusate Sodium 1 Tablet 2 TABLET PO ×2 (08:35→22:57)
[2022-05-21] MEDS: Amiodarone 200 MG Tablet PO (08:36)
[2022-05-21] MEDS: Potassium Chloride Oral Tablet 20 MEQ PO ×2 (08:36→17:28)
[2022-05-21] MEDS: Loratadine 10 MG Tablet PO (08:36)
[2022-05-21] MEDS: predniSONE 20 MG Tablet 40 MG PO (08:37)
[2022-05-21] MEDS: Polyethylene Glycol 3350 17 GM PACKET PO ×2 (08:37→22:57)
[2022-05-21] MEDS: CHLORHEXIDINE GLUC 2% CLOTH 1 EACH TOWELETTE TOPICAL (08:38)
[2022-05-21 09:00] LABS: Bedside Glucose 120 mg/dL (74-106)
[2022-05-21 11:00] LABS: Troponin-I HS 83 pg/mL (3.0-54.0)
--- NOTE | 2022-05-21 11:38 | PN.CARD_ITS ---
Subjective Subjective The patient appears to be awake and alert at this time. Her spouse is with her. She denies any ongoing chest discomfort or acute respiratory related issues or obvious palpitations. Objective Data Vital Signs: Vital Signs Temp Pulse Resp BP Pulse Ox O2 Del Method O2 Flow Rate 98.7 F 66 14 113/61 97 Nasal Cannula 5 05/21/22 07:00 05/21/22 08:10 05/21/22 08:10 05/21/22 07:00 05/21/22 08:10 05/21/22 08:10 05/21/22 08:10 FiO2 30 05/17/22 09:00 Oxygen Flow Rate (L/min) [ 4 AMBULATING with Oxygen #3] Oxygen Flow Rate (L/min) [ 3 AMBULATING with Oxygen #2] Oxygen Flow Rate (L/min) [ 2 AMBULATING with Oxygen #1] Oxygen Flow Rate (L/min) [At 2 REST with Oxygen] Oxygen Flow Rate (L/min) 5 Oxygen Delivery Method Nasal Cannula Weight: 92 lb 2.452 oz Body Mass Index (BMI) 20.5 Intake & Output: Intake and Output for Last 24 Hours 05/19/22 05/20/22 05/21/22 23:59 23:59 23:59 Intake Total 1302.35 / 1304.70 611.15 / 854.95 668.32 / 668.32 Output Total 550 / 550 900 / 1350 800 / 800 Balance 752.35 / 754.70 -288.85 / -495.05 -131.68 / -131.68 Lab / Micro Data Result Diagrams: 05/21/22 03:50 05/21/22 03:50 Labs: Laboratory Results - last 24 hr 05/20/22 11:44: POC Glucose 184 H 05/20/22 16:55: POC Glucose 154 H 05/20/22 17:30: Hgb 7.3 L, Hct 23.3 L 05/20/22 20:29: POC Glucose 173 H 05/21/22 03:50: WBC 10.2, RBC 2.02 L, Hgb 6.1 L, Hct 20.0 L, MCV 99.0, MCH 30.2, MCHC 30.5 L, RDW Std Deviation 58.3 H, RDW Coeff of Surinder 16.1 H, Plt Count 91 L, MPV 11.3, Immature Gran % (Auto) 0.700, Neut % (Auto) 94.6 H, Lymph % (Auto) 1.7 L, [place] % (Auto) 2.9, Eos % (Auto) 0.1, Baso % (Auto) 0.0, Absolute Neuts (auto) 9.6 H, Absolute Lymphs (auto) 0.17 L, Nucleated RBC % 0, Differential Comment SCANNED 05/21/22 03:50: Sodium 140, Potassium 3.5, Chloride 106, Carbon Dioxide 31.0, Anion Gap 3 L, BUN 29 H, Creatinine 0.45 L, Estim Creat Clear Calc 33.06, Est GFR (MDRD) Af Amer 176, Est GFR (MDRD) Non-Af 145, BUN/Creatinine Ratio 64.4 H, Glucose 133 H, Calcium 8.0 L, Phosphorus 2.2 L, Magnesium 2.0, Total Bilirubin 0.40, AST 134 H, ALT 207 H, Alkaline Phosphatase 337 H, Total Protein 4.9 L, Albumin 1.5 L, Globulin 3.4, Albumin/Globulin Ratio 0.4 L 05/21/22 07:00: Blood Type O POSITIVE, Antibody Screen NEGATIVE, Crossmatch See Detail 05/21/22 08:26: POC Glucose 120 H 05/21/22 10:35: Troponin I High Sens 83 H Cardiology Labs/Tests 05/20/22 17:30: Hgb 7.3 L, Hct 23.3 L 05/21/22 03:50: WBC 10.2, RBC 2.02 L, Hgb 6.1 L, Hct 20.0 L, MCV 99.0, MCH 30.2, MCHC 30.5 L, Plt Count 91 L, MPV 11.3, Immature Gran % (Auto) 0.700, Neut % (Auto) 94.6 H, Lymph % (Auto) 1.7 L, [place] % (Auto) 2.9, Eos % (Auto) 0.1, Baso % (Auto) 0.0, Absolute Neuts (auto) 9.6 H, Nucleated RBC % 0 05/21/22 03:50: Sodium 140, Potassium 3.5, Chloride 106, Carbon Dioxide 31.0, An ion Gap 3 L, BUN 29 H, Creatinine 0.45 L, Est GFR (MDRD) Af Amer 176, Est GFR (MDRD) Non-Af 145, BUN/Creatinine Ratio 64.4 H, Glucose 133 H, Calcium 8.0 L, Phosphorus 2.2 L, Magnesium 2.0, Total Bilirubin 0.40 Rhythm: Sinus rhythm ECHO: 05-20-2022 Interpretation Summary The study was technically difficult. Limited views were obtained. ? Left ventricular systolic function is normal. The estimated ejection fraction is 55 %. Mildly dilated right ventricle. Mild global right ventricular systolic dysfunction. The left atrium is mildly enlarged. There is moderate mitral annular calcification. Mild diffuse mitral valve thickening. Mild focal aortic valve calcification. Small pericardial effusion. There are no echocardiographic indications of cardiac tamponade. Unable to assess diastolic dysfunction. Physical Exam Const alert, oriented x3 and no apparent distress Orientation / Consciousness: awake HEENT normocephalic, head/scalp atraumatic and hearing grossly normal bilaterally Eyes PERRL, EOMs intact bilaterally, conjunctivae normal and no scleral icterus Neck full ROM, supple and no JVD Resp normal respiratory effort Auscultation: rhonchi throughout (Scattered (right greater than left)) Cardio regular rate, regular rhythm, S1 normal heart sound and S2 normal heart sound GI normal to inspection, nondistended, normoactive bowel sounds Extremity no pedal edema Skin no rashes or lesions noted Assessment & Plan Assessment/Plan (1) SVT (supraventricular tachycardia): PLAN: The patient has a history of SVT. It appears that she has been predominantly in sinus rhythm with a question of recurrent paroxysmal atrial fibrillation. At the moment her rate control therapy has been on hold secondary to concerns of hypotension. (2) Paroxysmal atrial fibrillation: PLAN: The patient has a history of PAF. At the present time she is noted to be in sinus rhythm. She does appear to have episodes appearing compatible with aberrant conduction. She will continue medical management as deemed appropriate with respect to rate control therapy as she is able based upon her blood pressure recordings.. Her anticoagulant therapy is now on hold secondary to a continued decline in her hemoglobin level. (3) Wide-complex tachycardia: PLAN: The patient has had episodes of wide-complex tachycardia. It appears to be irregular. There does not appear to be consistent underlying and repetitive atrial morphology. There is concerned this may be a form of atrial fibrillation with aberrancy. At the moment the patient's rate control therapy with her beta-anmol is on h old secondary to her hypotension. She will continue her antiarrhythmic therapy with her amiodarone. Her cardiac rate and rhythm will be monitored for any other changes that would warrant the need for additional evaluation and/or medical management. Her overall LV systolic function/LVEF was reassessed. This was with limited echocardiogram. The results are as noted. (4) CAD (coronary artery disease): PLAN: The patient has a history of CAD. The details are unknown. At the moment she will continue medical management as best as possible. (5) S/P PTCA (percutaneous transluminal coronary angioplasty): PLAN: The patient is reported as having a history of previous PCI at an outside institution. Again the details are unknown. She will continue medical therapy. (6) Cardiomyopathy: PLAN: The patient has a history of a previous transient cardiomyopathy. Her most recent echocardiogram was reviewed. Her overall LV systolic function/LVEF appears to have improved. It appears the patient has demonstrated when she has her tachycardia/tachydysrhythmia that her LV systolic function/LVEF declines and when she is back in a sinus rhythm with improved rate control her LV systolic function/LVEF improves. At the moment she appears without any acute symptoms of ongoing CHF or pulmonary edema. She will continue medical management as she is able based upon her blood pressure changes, etc. (7) AAA (abdominal aortic aneurysm): PLAN: The patient has a history of a AAA. Apparently this is undergone repair in the past based upon her past medical history. (8) Pneumonia: QUALIFIERS: Pneumonia type: due to Pneumococcus Laterality: right Lung location: middle lobe of lung Qualified Code(s): J13 - Pneumonia due to Streptococcus pneumoniae PLAN: The patient is being treated for underlying pneumonia superimposed upon her history of lung carcinoma. She is no longer mechanically intubated. She is continuing medical management. She has continued O2 support. (9) History of lung cancer: PLAN: The patient has a history of lung carcinoma. She will continue evaluation care per hematology and oncology. Apparently there has been discussions with the patient regarding the possibility of palliative/hospice care. According to the [facility] ICU staff she has declined this option at this time. (10) Anemia: QUALIFIERS: Anemia type: unspecified type Qualified Code(s): D64.9 - Anemia, unspecified PLAN: The patient remains with anemia. Her hemoglobin has continued to decline. Her anticoagulant therapy has been placed on hold. She is being considered for PRBC transfusion. This appears to be appropriate in order to increase her oxygen carrying capacity/supply which would benefit her cardiovascular status. She is also being considered for GI evaluation. Addt'l Comments The patient's case has been discussed and reviewed with the patient with her spouse present. This note was generated using a voice recognition system and there may be incorrect words, spelling or punctuation that were not noted when reviewing the office note prior to saving. Procedure Criteria Type of Procedure Procedure Type: Elective Elective Risks - COVID COVID Risk Discussion: The surgeon/proceduralist and patient have discussed in detail the risk of exposure to and/or potential harm posed by the COVID-19 virus with having a surgery/procedure at this time versus the risk of delaying the surgery/p rocedure. It is not possible to know either the risk of delaying the surgery or procedure or chance of getting an infection with perfect accuracy, but a joint decision was made between the patient and the surgeon/proceduralist to proceed at this time with the scheduled surgery/procedure as indicated on the consent form.
[2022-05-21] MEDS: RisperiDONE 0.5 MG Tablet PO (12:30)
[2022-05-21 12:50] LABS: Bedside Glucose 145 mg/dL (74-106)
--- NOTE | 2022-05-21 16:41 | PCM.PN.HOSP ---
Subjective Subjective No significant issues overnight. Patient remains on Levophed at low-dose. Her hemoglobin was low and a blood transfusion has been ordered. I discussed this with the patient and she is quite nervous related to previous experience however I assured her we will watch her closely and run the blood slowly. I also discussed the need for discontinuation of oral anticoagulation with her and that GI would be in to see her likely on Monday. She remains on 5 L nasal cannula. She did require catheter last night for an occluded PICC. Objective Data Objective Data Vital Signs: Vital Signs Temp Pulse Resp BP Pulse Ox O2 Del Method O2 Flow Rate 99.6 F H 89 21 H 104/73 95 Nasal Cannula 3 05/21/22 15:00 05/21/22 15:29 05/21/22 15:00 05/21/22 15:00 05/21/22 15:00 05/21/22 15:00 05/21/22 15:00 FiO2 30 05/17/22 09:00 Oxygen Flow Rate (L/min) [ 4 AMBULATING with Oxygen #3] Oxygen Flow Rate (L/min) [ 3 AMBULATING with Oxygen #2] Oxygen Flow Rate (L/min) [ 2 AMBULATING with Oxygen #1] Oxygen Flow Rate (L/min) [At 2 REST with Oxygen] Oxygen Flow Rate (L/min) 3 Oxygen Delivery Method Nasal Cannula Weight: 41.8 kg Body Mass Index (BMI) 20.5 Intake & Output: Intake and Output for Last 24 Hours 05/19/22 05/20/22 05/21/22 23:59 23:59 23:59 Intake Total 1302.35 / 1304.70 611.15 / 854.95 1817.53 / 1817.53 Output Total 550 / 550 900 / 1350 1150 / 1150 Balance 752.35 / 754.70 -288.85 / -495.05 667.53 / 667.53 Medical Nutrition Assessment Dietitian: Malnutrition Criteria Met Start: 05/17/22 11:27 Freq: Status: Active Protocol: Document 05/20/22 10:56 (Rec: 05/20/22 10:56 AG [id number]) Nutrition Malnutrition Evidence of Malnutrition Exists Yes Malnutrition (severe): Acute Illness/Injury Evidenced By Suboptimal Energy Intake ( Severe),Physical Changes ( Severe) Intake Problem Inadequate Oral Intake Etiology related to resp. failure Signs/Symptoms as evidenced by NPO status Status Resolved Problem Clinical Problem Chronic Disease or Condition Related Malnutrition Etiology severe, chronic malnutrition related to inadequate energy intake Signs/Symptoms as evidenced by severe muscle wasting/fat loss evident in orbital, clavicle, acromion, temporal areas per physical exam; estimated energy intake meeting <75% of estimated energy needs > 3 months Status Active Problem Recommendation Dietitian Recommendations/Changes continue sodium restricted w/ 1250mL fluid restriction per hospitalist; will fortify foods when possible. Will offer ensure plus high protein 120mL 4x/day w/ medpass although pt currently refusing . Lab / Micro Data Result Diagrams: 05/21/22 03:50 05/21/22 03:50 Labs: Laboratory Results - last 24 hr 05/20/22 16:55: POC Glucose 154 H 05/20/22 17:30: Hgb 7.3 L, Hct 23.3 L 05/20/22 20:29: POC Glucose 173 H 05/21/22 03:50: WBC 10.2, RBC 2.02 L, Hgb 6.1 L, Hct 20.0 L, MCV 99.0, MCH 30.2, MCHC 30.5 L, RDW Std Deviation 58.3 H, RDW Coeff of Surinder 16.1 H, Plt Count 91 L, MPV 11.3, Immature Gran % (Auto) 0.700, Neut % (Auto) 94.6 H, Lymph % (Auto) 1.7 L, Divide % (Auto) 2.9, Eos % (Auto) 0.1, Baso % (Auto) 0.0, Absolute Neuts (auto) 9.6 H, Absolute Lymphs (auto) 0.17 L, Nucleated RBC % 0, Differential Comment SCANNED 05/21/22 03:50: Sodium 140, Potassium 3.5, Chloride 106, Carbon Dioxide 31.0, Anion Gap 3 L, BUN 29 H, Creatinine 0.45 L, Estim Creat Clear Calc 33.06, Est GFR (MDRD) Af Amer 176, Est GFR (MDRD) Non-Af 145, BUN/Creatinine Ratio 64.4 H, Glucose 133 H, Calcium 8.0 L, Phosphorus 2.2 L, Magnesium 2.0, Total Bilirubin 0.40, AST 134 H, ALT 207 H, Alkaline Phosphatase 337 H, Total Protein 4.9 L, Albumin 1.5 L, Globulin 3.4, Albumin/Globulin Ratio 0.4 L 05/21/22 07:00: Blood Type O POSITIVE, Antibody Screen NEGATIVE, Crossmatch See Detail 05/21/22 08:26: POC Glucose 120 H 05/21/22 10:35: Troponin I High Sens 83 H 05/21/22 12:29: POC Glucose 145 H Micro: Microbiology 05/14/22 20:05 Sputum, Tracheal Aspirate Gram Stain - Final 05/14/22 20:05 Sputum, Tracheal Aspirate Respiratory Culture - Final Mixed normal respiratory mariano. No Streptococcus pneumoniae, beta-hemolytic Streptococcus or Staphylococcus aureus isolated. 05/11/22 11:50 Blood Culture (Wb) - Right Wrist Blood Culture - Final No growth in 5 days. 05/11/22 11:30 Blood Culture (Wb) #2 - Left Wrist Blood Culture - Final No growth in 5 days. 05/11/22 00:00 Urine Catheter - Bailey Urine Culture - Final Culture exhibits no growth. 05/11/22 19:40 Sputum, Expectorated/Coughed Gram Stain - Final 05/11/22 19:40 Sputum, Expectorated/Coughed Respiratory Culture - Final 05/11/22 21:45 Urine Catheter - Bailey Legionella Antigen - Final 05/11/22 21:45 Urine Catheter - Bailey Streptococcus pneumoniae Antigen (M - Final 05/11/22 11:21 Nasal Secretion SARS-CoV-2 & FLU Antigen (Rapid) - Final Physical Exam Const alert and oriented x3 Constitutional Narrative: Frail, older white female, cachectic, sitting up in bed, on her iPad, appears ill but nontoxic HEENT head/scalp atraumatic, moist oral mucous membranes and oropharynx normal HEENT Narrative: No thrush, edentulous, Mallampati 1-2 Resp normal respiratory effort, no retractions and no use of accessory muscles Resp Narrative: Severely diminished diffusely Auscultation: Negative for crackles, rhonchi or wheezes Cardio regular rate, regular rhythm, S1 normal heart sound, S2 normal heart sound, no murmurs, no rub, no gallops and no clicks GI normal to inspection, nondistended, normoactive bowel sounds, soft to palpation, non-tender and non-distended GI Narrative: Scaphoid abdomen Extremity no clubbing, cyanosis or edema Extremity Narrative: 2+ pedal pulses Neuro oriented x3, moves all extremities and no focal motor deficits Sensorium / Orientation: awake, alert, oriented to person, oriented to place and oriented to time Speech: speech normal Psych Psych Narrative: Slightly anxious secondary to pending blood transfusion Mood & Affect: anxious Assessment & Plan Assessment/Plan (1) Cardiomyopathy: (2) SVT (supraventricular tachycardia): (3) Acute respiratory failure with hypoxia: (4) Severe protein-calorie malnutrition: (5) Pneumonia: QUALIFIERS: Pneumonia type: due to Pneumococcus Laterality: right Lung location: middle lobe of lung Qualified Code(s): J13 - Pneumonia due to Streptococcus pneumoniae (6) Anemia: QUALIFIERS: Anemia type: unspecified type Qualified Code(s): D64.9 - Anemia, unspecified (7) Shock: PLAN: Plan Acute on chronic hypoxic respiratory failure-Multifactorial(suspected pneumonia/HFrEF/lung CA/COPD) -Slowly improving clinically -No sepsis present at all during this hospitalization -Requiring 5 L of oxygen this morning to maintain oxygen saturations -Baseline home dose is 3 L -Sinew to wean -Continue steroids but changed to oral -Continue bronchodilators -Antimicrobials have been completed -COVID and respiratory panel are negative -Convert Lasix to p.o. -Pulmonary medicine following-appreciate input Undifferentiated shock -Hypotension developed late yesterday afternoon that was initially somewhat responsive to 1 L of fluids however ultimately required vasopressor support for unstable hemodynamics -Suspect that this may be related to her hemoglobin -UA also looks possibly infected -Continue broad-spectrum antibiotics -All cultures remain pending -Continue Levophed and wean as able -Diuretics and antihypertensives are on hold -Patient with negative blood cultures from 05/11/2022, negative respiratory culture -White count has normalized -Procalcitonin was 0.73 Compensated heart failure with reduced ejection fraction -Newly worsened EF--> again--> recovered from 12/2021 admission on most recent echo prior to this admission -Was decompensated during this hospital course but now compensated -Hold Lasix -Hold metoprolol and lisinopril -Echocardiogram from 05/12/2022 showed an EF of 35% with a mildly dilated RV, mild global right ventricular dysfunction, left atrial enlargement, mild mitral valve insufficiency, trivial pericardial effusion with no evidence of tamponade, right ventricular systolic pressure to 35 mmHg -Patient did have follow-up echo after August admission where her EF was noted to be 35% in early January that showed recovery of her EF to 60%, it appears her EF is somewhat labile -Follows with Dr. Champion at [facility] for cardiology at baseline -Cardiology is following-appreciate input A. fib with RVR/PAF -Patient has been in and out of A. fib during her hospital stay -Remains in normal sinus rhythm -Amiodarone 200 mg daily -Hold metoprolol with blood pressures being low -Echo as above -Apixaban discontinued with trending down of hemoglobin yesterday Transaminitis -Up today suspect this is related to antibiotics and hypotension Insulin resistance -Hemoglobin A1c is 6.0 -Patient with insulin resistance and likely elevated hemoglobin secondary to acute stress and steroids -Sliding scale -Accu-Cheks Anemia/thrombocytopenia -Hemoglobin continues to trend down -6.1 this morning -Blood transfusion 1 unit packed red blood cells 05/21/2022 -Stool guaiac is still pending -Patient has been transfused several units of packed red blood cells during her hospital course -Platelet count is improving and currently 91,000 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 has reinitiated -Continue home salt tablets -IV diuretics on hold -BMP in a.m. Small cell lung CA -Follows with Dr. Corbett -Currently in remission CAD with history of MD -History of stent placement -Patient is currently not on any statin -Continue home statin -Previous stents were remote at [facility] Hyperlipidemia -Continue home atorvastatin 10 mg nightly COPD/emphysema -As needed albuterol -Scheduled DuoNebs -Hold home Trelegy Ellipta and restart at discharge -Pulmonary medicine is following Severe malnutrition -Continue supplements -Encourage p.o. intake with liberal diet -Dietitian following Osteoporosis -Restart alendronate at discharge Chronic pain -Oxy IR 10 mg 3 times daily via OG -Continue scheduled morphine as ordered GERD with history of GI bleed -Restart p.o. Protonix 40 twice daily -Continue Carafate Anxiety -Continue added BuSpar -Ativan made symptoms worse -Continue Risperdal 1 mg at at bedtime and add 0 point 5 in the morning -Encouraged outpatient psychiatry follow-up for anxiety and patient is resistant--> we will make referral discharge DVT prophylaxis -SCDs -Chemoprophylaxis on hold secondary to thrombocytopenia and anemia CODE STATUS -Full code Disposition: Overall prognosis is fairly poor as patient is very frail and severely malnourished. Anxiety contributes to respiratory distress. Very debilitated but reluctant to be placed. Refused palliative care at her previous admission. Will discuss further patient is likely not to be discharged until next week as clinical status has deteriorated in last 24 hours Charges/Coding Visit Charges Inpatient E&M: 03669 Subs Hosp L2
[2022-05-21] MEDS: Insulin Lispro 100 UNIT/ML INSULN.PEN SC (17:27)
[2022-05-21 18:00] LABS: Bedside Glucose 150 mg/dL (74-106)
[2022-05-21] MEDS: RisperiDONE 1 MG Tablet PO (22:57)
[2022-05-21] MEDS: Atorvastatin Calcium 10 MG Tablet PO (22:57)
[2022-05-21] MEDS: 0.9% Saline Lock 10 ML Syringe IV (23:01)
[2022-05-22] VITALS (28 sets, daily range): BP systolic 96–133; BP diastolic 45–78; PULSE 62–110; RESP 12–20; TEMP 37–37.6; O2SAT 90–100
[2022-05-22] LABS: Bedside Glucose 144 mg/dL (74-106)
[2022-05-22] MEDS: oxyCODONE 5 MG Tablet 10 MG PO ×3 (00:36→16:17)
[2022-05-22] MEDS: Ipratropium/Albuterol Sulfate 3 ML AMPUL.NEB INHALATION ×5 (03:31→22:41)
[2022-05-22] MEDS: Sodium Chloride 1 GM Tablet PO ×3 (05:13→21:15)
[2022-05-22] MEDS: Menthol/Lanolin/Calamine/Znox 113 GM Tube 1 APPLIC TOPICAL ×3 (05:13→21:16)
--- NOTE | 2022-05-22 05:15 | PCM.RX.CS ---
Consult Pharmacy has been consulted to manage selected antiobiotic: Vancomycin Type of Consult: Follow-up Labs: Sodium 140 mmol/L (136-145) 05/21/22 03:50 Potassium 3.5 mmol/L (3.5-5.1) 05/21/22 03:50 Chloride 106 mmol/L (98-107) 05/21/22 03:50 Carbon Dioxide 31.0 mmol/L (21.0-32.0) 05/21/22 03:50 Anion Gap 3 (5-15) L 05/21/22 03:50 BUN 29 mg/dL (7-18) H 05/21/22 03:50 Creatinine 0.45 mg/dL (0.55-1.02) L 05/21/22 03:50 Est GFR (MDRD) Af Amer 176 mL/min (>60) 05/21/22 03:50 Est GFR (MDRD) Non-Af 145 mL/min (>60) 05/21/22 03:50 BUN/Creatinine Ratio 64.4 RATIO (10-20) H 05/21/22 03:50 Glucose 133 mg/dL (74-106) H 05/21/22 03:50 Microbiology: Microbiology 05/14/22 20:05 Sputum, Tracheal Aspirate Gram Stain - Final 05/14/22 20:05 Sputum, Tracheal Aspirate Respiratory Culture - Final Mixed normal respiratory mariano. No Streptococcus pneumoniae, beta-hemolytic Streptococcus or Staphylococcus aureus isolated. 05/11/22 11:50 Blood Culture (Wb) - Right Wrist Blood Culture - Final No growth in 5 days. 05/11/22 11:30 Blood Culture (Wb) #2 - Left Wrist Blood Culture - Final No growth in 5 days. 05/11/22 00:00 Urine Catheter - Bailey Urine Culture - Final Culture exhibits no growth. 05/11/22 19:40 Sputum, Expectorated/Coughed Gram Stain - Final 05/11/22 19:40 Sputum, Expectorated/Coughed Respiratory Culture - Final 05/11/22 21:45 Urine Catheter - Bailey Legionella Antigen - Final 05/11/22 21:45 Urine Catheter - Bailey Streptococcus pneumoniae Antigen (M - Final 05/11/22 11:21 Nasal Secretion SARS-CoV-2 & FLU Antigen (Rapid) - Final Pharmacy Plan for Drug Dosing: Pharmacy Service will continue to monitor and adjust dosing as required. TROUGH NOT DRAWN, RETIME FOR NEXT DOSE
[2022-05-22 05:33] LABS: Absolute Lymphocyte Count 0.21 X10^3/uL (0.83-4.51); Absolute Neutrophil Count 8.1 X10^3/uL (2.0-7.7); Basophil# 0.01 X10^3/uL; Basophil% 0.1 % (0-1); Eosinophil# 0.01 X10^3/uL; Eosinophils% 0.1 % (0-5); Hematocrit 21.8 % (37-47); Hemoglobin 6.7 g/dL (12.0-15.0); Lymphocyte # 0.21 X10^3/ul (0.83-4.51); Lymphocyte % 2.4 % (19-41); Mean Corp Hgb Conc 30.7 g/dL (32-36); Mean Corpuscular Hgb 29.8 pg (27.0-32.0); Mean Corpuscular Volume 96.9 fL (81-99); Mean Platelet Vol. 11.6 fl (6.2-12.0); Monocyte# 0.38 X10^3/uL; Monocyte% 4.3 % (0-10); NRBC Flagged by Analyzer 0 % (0-5); Neutrophil # 8.06 X10^3/uL (2.7-7.7); Neutrophil % 92.2 % (47-70); POSITIVE COUNT YES; POSITIVE DIFFERENTIAL YES; Platelet Count 89 K/mm3 (150-450); RBC Distribution Width CV 17.1 % (11.6-14.6); RBC Distribution Width SD 60.6 fl (35.1-43.9); Red Blood Count 2.25 M/mm3 (4.2-5.4); White Blood Count 8.8 K/mm3 (4.4-11.0)
[2022-05-22 05:35] LABS: Differential Indicated SCAN CRITERIA MET
[2022-05-22 05:47] LABS: Anion Gap 3 (5-15); BUN 22 mg/dL (7-18); BUN/Creat Ratio 58.8 RATIO (10-20); Calcium,Total 8.6 mg/dL (8.5-10.1); Chloride 107 mmol/L (98-107); Creatinine, Serum 0.37 mg/dL (0.55-1.02); EST Glomerular Filtration Rate 180 mL/min (>60); Est Glom Filt Rate - Afr Amer 217 mL/min (>60); Glucose 103 mg/dL (74-106); Phosphorus 2.4 mg/dL (2.5-4.9); Potassium 4.3 mmol/L (3.5-5.1); Sodium Level 141 mmol/L (136-145)
[2022-05-22 06:36] LABS: Differential Comment SCANNED
--- NOTE | 2022-05-22 06:46 | PCM.PN.INT ---
Assessment & Plan Assessment/Plan (1) Acute respiratory failure with hypoxia: (2) Pneumonia: QUALIFIERS: Pneumonia type: due to Pneumococcus Laterality: right Lung location: middle lobe of lung Qualified Code(s): J13 - Pneumonia due to Streptococcus pneumoniae (3) History of lung cancer: (4) Severe protein-calorie malnutrition: PLAN: Plan RECOMMENDATIONS: 1. Continue to wean supplemental oxygen as tolerated. Walking oximetry prior to discharge 2. Complete a 7-day course of Levaquin 3. Hold on blood transfusion unless patient becomes hypotensive 4. Hold diuretics and antihypertensives for now. 5. Wean steroids over the next 12 to 14 days 6. Continue scheduled BuSpar twice daily to address underlying anxiety. 7. Continue to monitor H&H daily. Transfuse if hemoglobin drops below 7 g/dL. Transfuse 1 unit of packed red blood cells 8. Hold anticoagulation until GI work-up can be performed. Continue PPI therapy. 9. Okay to leave the intensive care unit from my perspective IMPRESSIONS: 1.??Acute hypoxic respiratory failure in the setting of COPD and history of small cell lung cancer The patient presented with an acute COPD exacerbation which appears to be secondary to a right upper lobe infiltrate. The patient has slowly improved from a respiratory perspective. She remains on appropriate antimicrobials, scheduled bronchodilators and steroids. Although the patient was able to be extubated on 05/14, she decompensated from a respiratory perspective approximately 12 hours later and had to be reintubated. Clinical concern that the patient's underlying anemia and anxiety may have contributed to her decompensation. With further volume optimization and stabilization of her anemia status, the patient was able to be extubated once again on May 17. She had been doing well from a respiratory perspective until May 19, when she fell and developed worsening hypoxia and hypotension. The patient will be maintained on supplemental oxygen to maintain saturations at or above 90%. Patient appears to be at her baseline at this time. Would recommend continued monitoring in the hospital given variable course. Okay to leave the intensive care unit from my perspective 2. Undifferentiated shock Resolved. The patient developed hypotension earlier this week, ultimately requiring the initiation of vasopressor support. The exact etiology for her hypotension is not entirely clear. She had been receiving diuretics and hemoglobin decreased so intravascular volume depletion is a possibility. However, the patient did receive some supplemental IV fluid hydration without significant improvement in her hemodynamic status. In addition to the aforementioned, an underlying urinary tract source of infection is also possible. Therefore, urine cultures have been sent. 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 The patient will be continued on appropriate PPI therapy. There are no overt signs of blood loss. Patient likely requires a GI work-up prior to reinitiation of anticoagulation 4.??Cardiomyopathy/paroxysmal A. fib/SVT Continue medical management per cardiology recommendations. 5.??Chronic pain syndrome/osteoporosis/GERD with history of GI bleed/CAD/debility Complicates care, management, recovery and prognosis.? Continue supportive measures as noted above. Physical therapy to work with the patient. Hold any transfusion for now unless patient becomes hypotensive. Possible GI work-up during this hospitalization or as an outpatient. Defer to hospitalist. Subjective Subjective Patient did well overnight. No acute issues were reported. No obvious clinical bleeding has been reported. Patient denies any pain. Patient on baseline oxygen requirements. Objective Data Objective Data Vital Signs: Vital Signs Temp Pulse Resp BP Pulse Ox O2 Del Method O2 Flow Rate 37.0 C 66 12 108/48 L 100 Nasal Cannula 3 05/22/22 05:00 05/22/22 05:00 05/22/22 05:00 05/22/22 05:00 05/22/22 05:00 05/22/22 05:00 05/22/22 05:00 FiO2 30 05/17/22 09:00 Oxygen Flow Rate (L/min) [ 4 AMBULATING with Oxygen #3] Oxygen Flow Rate (L/min) [ 3 AMBULATING with Oxygen #2] Oxygen Flow Rate (L/min) [ 2 AMBULATING with Oxygen #1] Oxygen Flow Rate (L/min) [At 2 REST with Oxygen] Oxygen Flow Rate (L/min) 3 Oxygen Delivery Method Nasal Cannula Weight: 41.6 kg Body Mass Index (BMI) 20.5 Intake & Output: Intake and Output for Last 24 Hours 05/20/22 05/21/22 05/22/22 23:59 23:59 23:59 Intake Total 611.15 / 854.95 2297.53 / 2597.53 565 / 565 Output Total 900 / 1350 1600 / 2050 950 / 950 Balance -288.85 / -495.05 697.53 / 547.53 -385 / -385 Medical Nutrition Assessment Dietitian: Malnutrition Criteria Met Start: 05/17/22 11:27 Freq: Status: Active Protocol: Document 05/20/22 10:56 (Rec: 05/20/22 10:56 [id number]) Nutrition Malnutrition Evidence of Malnutrition Exists Yes Malnutrition (severe): Acute Illness/Injury Evidenced By Suboptimal Energy Intake ( Severe),Physical Changes ( Severe) Intake Problem Inadequate Oral Intake Etiology related to resp. failure Signs/Symptoms as evidenced by NPO status Status Resolved Problem Clinical Problem Chronic Disease or Condition Related Malnutrition Etiology severe, chronic malnutrition related to inadequate energy intake Signs/Symptoms as evidenced by severe muscle wasting/fat loss evident in orbital, clavicle, acromion, temporal areas per physical exam; estimated energy intake meeting <75% of estimated energy needs > 3 months Status Active Problem Recommendation Dietitian Recommendations/Changes continue sodium restricted w/ 1250mL fluid restriction per hospitalist; will fortify foods when possible. Will offer ensure plus high protein 120mL 4x/day w/ medpass although pt currently refusing . Lab / Micro Data Attestation: I reviewed the patient's lab results. Result Diagrams: 05/22/22 05:15 05/22/22 05:15 Labs: Laboratory Results - last 24 hr 05/21/22 07:00: Blood Type O POSITIVE, Antibody Screen NEGATIVE, Crossmatch See Detail 05/21/22 08:26: POC Glucose 120 H 05/21/22 10:35: Troponin I High Sens 83 H 05/21/22 12:29: POC Glucose 145 H 05/21/22 17:25: POC Glucose 150 H 05/21/22 23:10: POC Glucose 144 H 05/22/22 05:15: WBC 8.8, RBC 2.25 L, Hgb 6.7 L, Hct 21.8 L, MCV 96.9, MCH 29.8, MCHC 30.7 L, RDW Std Deviation 60.6 H, RDW Coeff of Surinder 17.1 H, Plt Count 89 L, MPV 11.6, Immature Gran % (Auto) 0.900, Neut % (Auto) 92.2 H, Lymph % (Auto) 2.4 L, Mcmullen % (Auto) 4.3, Eos % (Auto) 0.1, Baso % (Auto) 0.1, Absolute Neuts (auto) 8.1 H, Absolute Lymphs (auto) 0.21 L, Nucleated RBC % 0, Differential Comment SCANNED 05/22/22 05:15: Sodium 141, Potassium 4.3, Chloride 107, Carbon Dioxide 31.0, Anion Gap 3 L, BUN 22 H, Creatinine 0.37 L, Estim Creat Clear Calc 32.90, Est GFR (MDRD) Af Amer 217, Est GFR (MDRD) Non-Af 180, BUN/Creatinine Ratio 58.8 H, Glucose 103, Calcium 8.6, Phosphorus 2.4 L Micro: Microbiology 05/14/22 20:05 Sputum, Tracheal Aspirate Gram Stain - Final 05/14/22 20:05 Sputum, Tracheal Aspirate Respiratory Culture - Final Mixed normal respiratory mariano. No Streptococcus pneumoniae, beta-hemolytic Streptococcus or Staphylococcus aureus isolated. 05/11/22 11:50 Blood Culture (Wb) - Right Wrist Blood Culture - Final No growth in 5 days. 05/11/22 11:30 Blood Culture (Wb) #2 - Left Wrist Blood Culture - Final No growth in 5 days. 05/11/22 00:00 Urine Catheter - Bailey Urine Culture - Final Culture exhibits no growth. 05/11/22 19:40 Sputum, Expectorated/Coughed Gram Stain - Final 05/11/22 19:40 Sputum, Expectorated/Coughed Respiratory Culture - Final 05/11/22 21:45 Urine Catheter - Bailey Legionella Antigen - Final 05/11/22 21:45 Urine Catheter - Bailey Streptococcus pneumoniae Antigen (M - Final 05/11/22 11:21 Nasal Secretion SARS-CoV-2 & FLU Antigen (Rapid) - Final Physical Exam Const alert and no apparent distress Constitutional Narrative: No conversational dyspnea General Appearance: cooperative and frail Nutritional Appearance: thin HEENT normocephalic, head/scalp atraumatic and moist oral mucous membranes HEENT Narrative: Alopecia noted Eyes PERRL, EOMs intact bilaterally, conjunctivae normal and no scleral icterus Neck supple General: trachea midline Chest Chest: abnormal inspection of the chest increased A-P diameter Resp normal respiratory effort, no retractions and no use of accessory muscles Auscultation: diminished lung sounds; Negative for rales, rhonchi or wheezes Cardio regular rate, regular rhythm, S1 normal heart sound, S2 normal heart sound, no murmurs, no rub, no gallops, no clicks and no JVD GI normal to inspection, nondistended, normoactive bowel sounds, soft to palpation, non-tender and non-distended Extremity no clubbing, cyanosis or edema Skin no rashes or lesions noted, no wounds, skin turgor normal, no jaundice, no petechiae and no mottling Hair: total alopecia Neuro CN's II-XII intact bilaterally, moves all extremities and no focal motor deficits Neuro Narrative: Alert and able to follow commands appropriately. Sensorium / Orientation: sedated on vent Speech: speech normal Psych cooperative and affect normal Charges/Coding Visit Charges Inpatient E&M: 46175 Subs Hosp L2
--- NOTE | 2022-05-22 07:14 | CPS ---
Did not do PEP, sleeping.
[2022-05-22] MEDS: Potassium Chloride Oral Tablet 20 MEQ PO ×2 (08:43→17:40)
[2022-05-22] MEDS: predniSONE 20 MG Tablet 40 MG PO (08:43)
[2022-05-22] MEDS: busPIRone 5 MG Tablet 10 MG PO ×2 (10:10→21:16)
[2022-05-22] MEDS: Magnesium Chloride 64 MG Delay Rel.Tablet 128 MG PO (10:10)
[2022-05-22] MEDS: Amiodarone 200 MG Tablet PO (10:10)
[2022-05-22] MEDS: RisperiDONE 0.5 MG Tablet PO (10:11)
[2022-05-22] MEDS: Pantoprazole Sodium 40 MG Tablet PO ×2 (10:11→21:15)
[2022-05-22] MEDS: morphine SR 15 MG Tablet PO ×2 (10:24→21:15)
[2022-05-22] MEDS: Loratadine 10 MG Tablet PO (10:25)
[2022-05-22] MEDS: levoFLOXacin IV 750 MG/150 ML BAG 100 MG IV (10:25)
[2022-05-22] MEDS: 0.9% Saline Lock 10 ML Syringe IV ×2 (10:27→21:16)
--- NOTE | 2022-05-22 11:16 | PN.CARD_ITS ---
Subjective Subjective The patient remains in the ICU. She remains alert and oriented. She denies any ongoing chest discomfort, worsening shortness of breath, or palpitations. Objective Data Vital Signs: Vital Signs Temp Pulse Resp BP Pulse Ox O2 Del Method O2 Flow Rate 98.6 F 64 15 96/49 L 96 Nasal Cannula 3 05/22/22 07:00 05/22/22 07:13 05/22/22 07:13 05/22/22 07:00 05/22/22 07:13 05/22/22 08:00 05/22/22 08:00 FiO2 30 05/17/22 09:00 Oxygen Flow Rate (L/min) [ 4 AMBULATING with Oxygen #3] Oxygen Flow Rate (L/min) [ 3 AMBULATING with Oxygen #2] Oxygen Flow Rate (L/min) [ 2 AMBULATING with Oxygen #1] Oxygen Flow Rate (L/min) [At 2 REST with Oxygen] Oxygen Flow Rate (L/min) 3 Oxygen Delivery Method Nasal Cannula Weight: 91 lb 11.397 oz Body Mass Index (BMI) 20.5 Intake & Output: Intake and Output for Last 24 Hours 05/20/22 05/21/22 05/22/22 23:59 23:59 23:59 Intake Total 611.15 / 854.95 2297.53 / 2597.53 565 / 565 Output Total 900 / 1350 1600 / 2050 950 / 950 Balance -288.85 / -495.05 697.53 / 547.53 -385 / -385 Lab / Micro Data Result Diagrams: 05/22/22 05:15 05/22/22 05:15 Labs: Laboratory Results - last 24 hr 05/21/22 07:00: Crossmatch See Detail 05/21/22 12:29: POC Glucose 145 H 05/21/22 17:25: POC Glucose 150 H 05/21/22 23:10: POC Glucose 144 H 05/22/22 05:15: WBC 8.8, RBC 2.25 L, Hgb 6.7 L, Hct 21.8 L, MCV 96.9, MCH 29.8, MCHC 30.7 L, RDW Std Deviation 60.6 H, RDW Coeff of Surinder 17.1 H, Plt Count 89 L, MPV 11.6, Immature Gran % (Auto) 0.900, Neut % (Auto) 92.2 H, Lymph % (Auto) 2.4 L, Daniels % (Auto) 4.3, Eos % (Auto) 0.1, Baso % (Auto) 0.1, Absolute Neuts (auto) 8.1 H, Absolute Lymphs (auto) 0.21 L, Nucleated RBC % 0, Differential Comment SCANNED 05/22/22 05:15: Sodium 141, Potassium 4.3, Chloride 107, Carbon Dioxide 31.0, Anion Gap 3 L, BUN 22 H, Creatinine 0.37 L, Estim Creat Clear Calc 32.90, Est GFR (MDRD) Af Amer 217, Est GFR (MDRD) Non-Af 180, BUN/Creatinine Ratio 58.8 H, Glucose 103, Calcium 8.6, Phosphorus 2.4 L Micro: Microbiology 05/19/22 23:05 Blood Culture (Wb) - Arm Left Blood Culture - Preliminary No growth in 48 hours. 05/19/22 22:35 Blood Culture (Wb) - Pic Blood Culture - Preliminary No growth in 48 hours. Cardiology Labs/Tests 05/22/22 05:15: WBC 8.8, RBC 2.25 L, Hgb 6.7 L, Hct 21.8 L, MCV 96.9, MCH 29.8, MCHC 30.7 L, Plt Count 89 L, MPV 11.6, Immature Gran % (Auto) 0.900, Neut % (Auto) 92.2 H, Lymph % (Auto) 2.4 L, Daniels % (Auto) 4.3, Eos % (Auto) 0.1, Baso % (Auto) 0.1, Absolute Neuts (auto) 8.1 H, Nucleated RBC % 0 05/22/22 05:15: Sodium 141, Potassium 4.3, Chloride 107, Carbon Dioxide 31.0, Anion Gap 3 L, BUN 22 H, Creatinine 0.37 L, Est GFR (MDRD) Af Amer 217, Est GFR (MDRD) Non-Af 180, BUN/Creatinine Ratio 58.8 H, Glucose 103, Calcium 8.6, Phosphorus 2.4 L Rhythm: Sinus rhythm Physical Exam Const alert, oriented x3 and no apparent distress Orientation / Consciousness: awake HEENT normocephalic, head/scalp atraumatic and hearing grossly normal bilaterally Eyes PERRL, EOMs intact bilaterally, conjunctivae normal and no scleral icterus Neck full ROM, supple and no JVD Resp normal respiratory effort Auscultation: rhonchi throughout (Scattered (right greater than left)) Cardio regular rate, regular rhythm, S1 normal heart sound and S2 normal heart sound Heart Sounds: murmur systolic II/ soft mid left sternal border GI normal to inspection, nondistended, normoactive bowel sounds Extremity no pedal edema Skin no rashes or lesions noted Assessment & Plan Assessment/Plan (1) SVT (supraventricular tachycardia): PLAN: The patient has a history of SVT. It appears that she has been predominantly in sinus rhythm with a question of recurrent paroxysmal atrial fibrillation. At the moment her rate control therapy has been on hold secondary to concerns of hypotension. She is continuing her antiarrhythmic therapy with amiodarone. (2) Paroxysmal atrial fibrillation: PLAN: The patient has a history of PAF. At the present time she is noted to be in sinus rhythm. She does appear to have episodes appearing compatible with aberrant conduction. She will continue medical management as deemed appropriate with respect to rate control therapy as she is able based upon her blood pressure recordings. She is continuing her antiarrhythmic therapy with amiodarone at 200 mg p.o. daily. Her anticoagulant therapy is now on hold secondary to a continued decline in her hemoglobin level. (3) Wide-complex tachycardia: PLAN: The patient has had episodes of wide-complex tachycardia. It appears to be irregular. There does not appear to be consistent underlying and repetitive atrial morphology. There is concerned this may be a form of atrial fibrillation with aberrancy. At the moment the patient's rate control therapy with her beta-anmol is on hold secondary to her hypotension. She will continue her antiarrhythmic therapy with her amiodarone. She has undergone follow-up limited transthoracic echocardiogram. The results have been reviewed. As previously noted her overall LV systolic function/LVEF appears to have improved compared to her arrival at the hospital. (4) CAD (coronary artery disease): PLAN: The patient has a history of CAD. The details are unknown. At the moment she will continue medical management as best as possible. (5) S/P PTCA (percutaneous transluminal coronary angioplasty): PLAN: The patient is reported as having a history of previous PCI at an outside institution. Again the details are unknown. She will continue medical therapy. (6) Cardiomyopathy: PLAN: The patient has a history of a previous transient cardiomyopathy. Her most recent echocardiogram was reviewed. Her overall LV systolic function/LVEF appears to have improved. It appears the patient has demonstrated when she has her tachycardia/tachydysrhythmia that her LV systolic function/LVEF declines and when she is back in a sinus rhythm with improved rate control her LV systolic function/LVEF improves. At the moment she appears without any acute symptoms of ongoing CHF or pulmonary edema. She will continue medical management as she is able based upon her blood p ressure changes, etc. (7) Cardiac murmur: PLAN: She does have a cardiac murmur. This may be secondary to a combination of her underlying noncardiac medical conditions including her anemia, superimposed upon her echocardiographic findings of underlying valvular heart related issues especially with respect to an element of calcification of the aortic valve. (8) AAA (abdominal aortic aneurysm): PLAN: The patient has a history of a AAA. Apparently this is undergone repair in the past based upon her past medical history. (9) Pneumonia: QUALIFIERS: Pneumonia type: due to Pneumococcus Laterality: right Lung location: middle lobe of lung Qualified Code(s): J13 - Pneumonia due to Streptococcus pneumoniae PLAN: The patient is being treated for underlying pneumonia superimposed upon her history of lung carcinoma. She is no longer mechanically intubated. She is continuing medical management. She has continued O2 support as needed. (10) History of lung cancer: PLAN: The patient has a history of lung carcinoma. She will continue evaluation care per hematology and oncology. Apparently there has been discussions with the patient regarding the possibility of palliative/hospice care. According to the [facility] ICU staff she has declined this option at this time. (11) Anemia: QUALIFIERS: Anemia type: unspecified type Qualified Code(s): D64.9 - Anemia, unspecified PLAN: The patient remains with anemia. Her hemoglobin has continued to decline. Her anticoagulant therapy has been placed on hold. She did receive PRBCs. Her hemoglobin did not significantly increase. She is going to receive additional PRBCs today. She has pending gastroenterology evaluation. Addt'l Comments Overall, at the present time, she will continue medical management. Her medications are being adjusted based upon her clinical status, vital signs, hemoglobin levels, etc. The patient's case was discussed and reviewed with the patient, her spouse, and Dr. Hernandez. This note was generated using a voice recognition system and there may be incorrect words, spelling or punctuation that were not noted when reviewing the office note prior to saving. Procedure Criteria Type of Procedure Procedure Type: Elective Elective Risks - COVID COVID Risk Discussion: The surgeon/proceduralist and patient have discussed in detail the risk of exposure to and/or potential harm posed by the COVID-19 virus with having a surgery/procedure at this time versus the risk of delaying the surgery/procedure. It is not possible to know either the risk of delaying the s urgery or procedure or chance of getting an infection with perfect accuracy, but a joint decision was made between the patient and the surgeon/proceduralist to proceed at this time with the scheduled surgery/procedure as indicated on the consent form.
[2022-05-22 11:35] LABS: Bedside Glucose 98 mg/dL (74-106)
--- NOTE | 2022-05-22 14:36 | PCM.PN.HOSP ---
Subjective Subjective No issues overnight. Patient did well with blood transfusions. Off pressors and hemodynamically stable. Hemoglobin still less than 7 at 6.7 and patient is amenable to 1 more unit of packed red blood cells. was at the bedside and I did discuss overall plan with him. Objective Data Objective Data Vital Signs: Vital Signs Temp Pulse Resp BP Pulse Ox O2 Del Method O2 Flow Rate 98.6 F 64 15 96/49 L 96 Nasal Cannula 3 05/22/22 07:00 05/22/22 07:13 05/22/22 07:13 05/22/22 07:00 05/22/22 07:13 05/22/22 08:00 05/22/22 13:40 FiO2 30 05/17/22 09:00 Oxygen Flow Rate (L/min) [ 4 AMBULATING with Oxygen #3] Oxygen Flow Rate (L/min) [ 3 AMBULATING with Oxygen #2] Oxygen Flow Rate (L/min) [ 2 AMBULATING with Oxygen #1] Oxygen Flow Rate (L/min) [At 2 REST with Oxygen] Oxygen Flow Rate (L/min) 3 Oxygen Delivery Method Nasal Cannula Weight: 41.6 kg Body Mass Index (BMI) 20.5 Intake & Output: Intake and Output for Last 24 Hours 05/20/22 05/21/22 05/22/22 23:59 23:59 23:59 Intake Total 611.15 / 854.95 2297.53 / 2597.53 565 / 565 Output Total 900 / 1350 1600 / 2050 950 / 950 Balance -288.85 / -495.05 697.53 / 547.53 -385 / -385 Medical Nutrition Assessment Dietitian: Malnutrition Criteria Met Start: 05/17/22 11:27 Freq: Status: Active Protocol: Document 05/22/22 11:51 RMA (Rec: 05/22/22 11:51 RMA [id number]) Nutrition Malnutrition Evidence of Malnutrition Exists Yes Malnutrition (severe): Acute Illness/Injury Evidenced By Suboptimal Energy Intake ( Severe),Physical Changes ( Severe) Intake Problem Inadequate Oral Intake Etiology related to resp. failure Signs/Symptoms as evidenced by NPO status Status Resolved Problem Clinical Problem Chronic Disease or Condition Related Malnutrition Etiology severe, chronic malnutrition related to inadequate energy intake Signs/Symptoms as evidenced by severe muscle wasting/fat loss evident in orbital, clavicle, acromion, temporal areas per physical exam; estimated energy intake meeting <75% of estimated energy needs > 3 months Status Active Problem Recommendation Dietitian Recommendations/Changes Will continue sodium restricted w/ 1250mL fluid restriction per hospitalist; will fortify foods when possible. Will offer ensure plus high protein 120mL 4x/day w/ medpass although pt currently refusing. Pt not interested in other ONS at this time. Lab / Micro Data Result Diagrams: 05/22/22 05:15 05/22/22 05:15 Labs: Laboratory Results - last 24 hr 05/21/22 07:00: Crossmatch See Detail 05/21/22 17:25: POC Glucose 150 H 05/21/22 23:10: POC Glucose 144 H 05/22/22 05:15: WBC 8.8, RBC 2.25 L, Hgb 6.7 L, Hct 21.8 L, MCV 96.9, MCH 29.8, MCHC 30.7 L, RDW Std Deviation 60.6 H, RDW Coeff of Surinder 17.1 H, Plt Count 89 L, MPV 11.6, Immature Gran % (Auto) 0.900, Neut % (Auto) 92.2 H, Lymph % (Auto) 2.4 L, Bandera % (Auto) 4.3, Eos % (Auto) 0.1, Baso % (Auto) 0.1, Absolute Neuts (auto) 8.1 H, Absolute Lymphs (auto) 0.21 L, Nucleated RBC % 0, Differential Comment SCANNED 05/22/22 05:15: Sodium 141, Potassium 4.3, Chloride 107, Carbon Dioxide 31.0, Anion Gap 3 L, BUN 22 H, Creatinine 0.37 L, Estim Creat Clear Calc 32.90, Est GFR (MDRD) Af Amer 217, Est GFR (MDRD) Non-Af 180, BUN/Creatinine Ratio 58.8 H, Glucose 103, Calcium 8.6, Phosphorus 2.4 L 05/22/22 11:13: POC Glucose 98 Micro: Microbiology 05/19/22 22:25 Urine Catheter - Bailey Urine Culture - Final Presumptive C albicans 05/19/22 23:05 Blood Culture (Wb) - Arm Left Blood Culture - Preliminary No growth in 48 hours. 05/19/22 22:35 Blood Culture (Wb) - Pic Blood Culture - Preliminary No growth in 48 hours. 05/14/22 20:05 Sputum, Tracheal Aspirate Gram Stain - Final 05/14/22 20:05 Sputum, Tracheal Aspirate Respiratory Culture - Final Mixed normal respiratory mariano. No Streptococcus pneumoniae, beta-hemolytic Streptococcus or Staphylococcus aureus isolated. 05/11/22 11:50 Blood Culture (Wb) - Right Wrist Blood Culture - Final No growth in 5 days. 05/11/22 11:30 Blood Culture (Wb) #2 - Left Wrist Blood Culture - Final No growth in 5 days. 05/11/22 00:00 Urine Catheter - Bailey Urine Culture - Final Culture exhibits no growth. 05/11/22 19:40 Sputum, Expectorated/Coughed Gram Stain - Final 05/11/22 19:40 Sputum, Expectorated/Coughed Respiratory Culture - Final 05/11/22 21:45 Urine Catheter - Bailey Legionella Antigen - Final 05/11/22 21:45 Urine Catheter - Bailey Streptococcus pneumoniae Antigen (M - Final 05/11/22 11:21 Nasal Secretion SARS-CoV-2 & FLU Antigen (Rapid) - Final Physical Exam Const alert and oriented x3 Constitutional Narrative: Frail, older white female, cachectic, sitting up in bed, at bedside, appears ill but nontoxic HEENT head/scalp atraumatic, moist oral mucous membranes and oropharynx normal HEENT Narrative: Edentulous, Mallampati 1, no thrush, hard of hearing especially out of the left ear Eyes PERRL Eyes Narrative: Pale conjunctiva bilaterally, no scleral icterus Resp normal respiratory effort, no retractions, no use of accessory muscles and clear to auscultation bilaterally Resp Narrative: Severely diminished diffusely Auscultation: Negative for crackles, rhonchi or wheezes Cardio regular rate, regular rhythm, S1 normal heart sound, S2 normal heart sound, no murmurs, no rub, no gallops and no clicks GI normal to inspection, nondistended, normoactive bowel sounds, soft to palpation and non-tender GI Narrative: Scaphoid abdomen Extremity no clubbing, cyanosis or edema Extremity Narrative: 2+ pedal pulses Neuro oriented x3, moves all extremities and no focal motor deficits Neuro Narrative: Severe generalized weakness Speech: speech normal Psych Psych Narrative: Slightly anxious secondary to pending blood transfusion Mood & Affect: anxious Assessment & Plan Assessment/Plan (1) Cardiomyopathy: (2) SVT (supraventricular tachycardia): (3) Acute respiratory failure with hypoxia: (4) Severe protein-calorie malnutrition: (5) Pneumonia: QUALIFIERS: Pneumonia type: due to Pneumococcus Laterality: right Lung location: middle lobe of lung Qualified Code(s): J13 - Pneumonia due to Streptococcus pneumoniae (6) Anemia: QUALIFIERS: Anemia type: unspecified type Qualified Code(s): D64.9 - Anemia, unspecified (7) Shock: PLAN: Plan Acute on chronic hypoxic respiratory failure-Multifactorial(suspected pneumonia/HFrEF/lung CA/COPD) -Slowly improving clinically -No sepsis present at all during this hospitalization -Patient is now on baseline oxygen requirement of 3 L -Continue oral steroids -Continue bronchodilators -Stop antimicrobials -COVID and respiratory panel are negative -Convert Lasix to p.o. -Pulmonary medicine following-appreciate input Undifferentiated shock--> seems to be more like hemorrhagic based on hemoglobin trend -Required temporary pressors -Currently off pressors since blood transfusion yesterday -Will repeat 1 more unit transfusion again today as hemoglobin is only 6.7 -Suspect that this may be related to her hemoglobin -All cultures are negative -Discontinue antimicrobials -Diuretics and antihypertensives are on hold -May be able to cautiously restart diuretics if patient has improved blood pressure that is stable after blood transfusions -Clinically Compensated heart failure with reduced ejection fraction -Newly worsened EF--> again--> recovered from 12/2021 admission on most recent echo prior to this admission -Was decompensated during this hospital course but now compensated -Hold Lasix -Hold metoprolol and lisinopril -Echocardiogram from 05/12/2022 showed an EF of 35% with a mildly dilated RV, mild global right ventricular dysfunction, left atrial enlargement, mild mitral valve insufficiency, trivial pericardial effusion with no evidence of tamponade, right ventricular systolic pressure to 35 mmHg -Patient did have follow-up echo after August admission where her EF was noted to be 35% in early January that showed recovery of her EF to 60%, it appears her EF is somewhat labile -Follows with Dr. Champion at [facility] for cardiology at baseline -Cardiology is following-appreciate input Josie steve with RVR/PAF -Patient has been in and out of A. fib during her hospital stay -Remains in normal sinus rhythm -Amiodarone 200 mg daily -Hold metoprolol with blood pressures being low -Echo as above -Continue to hold apixaban unless GI is okay with reinitiation after scopes are completed Transaminitis -Repeat lab in a.m. 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 has reinitiated -Continue home salt tablets -IV diuretics on hold -BMP in a.m. Small cell lung CA -Follows with Dr. Corbett -Currently in remission CAD with history of NH -History of stent placement -Patient is currently not on any statin -Continue home statin -Previous stents were remote at [facility] Hyperlipidemia -Continue home atorvastatin 10 mg nightly COPD/emphysema -As needed albuterol -Scheduled DuoNebs -Hold home Trelegy Ellipta and restart at discharge -Pulmonary medicine is following Severe malnutrition -Continue supplements -Encourage p.o. intake with liberal diet -Dietitian following Osteoporosis -Restart alendronate at discharge Chronic pain -Oxy IR 10 mg 3 times daily via OG -Continue scheduled morphine as ordered GERD with history of GI bleed -Continue p.o. Protonix 40 mg twice daily -Continue Carafate Anxiety -Continue added BuSpar -Ativan made symptoms worse -Continue Risperdal 0.5 mg a.m./1 mg p.m. -Highly recommend discharging patient with this medication -Encouraged outpatient psychiatry follow-up for anxiety and patient is resistant--> we will make referral discharge DVT prophylaxis -SCDs -Chemoprophylaxis on hold secondary to thrombocytopenia and anemia CODE STATUS -Full code Disposition: Overall prognosis is fairly poor as patient is very frail and severely malnourished. Anxiety contributes to respiratory distress. Very debilitated but reluctant to be placed. Refused palliative care at her previous admission. Will discuss further patient is likely not to be discharged until next week as clinical status has deteriorated in last 24 hours Charges/Coding Visit Charges Inpatient E&M: 97682 Subs Hosp L2
[2022-05-22 17:10] LABS: Bedside Glucose 124 mg/dL (74-106)
--- NOTE | 2022-05-22 20:26 | NURSING ---
9921- Spoke to Geena in lab regarding 1 unit of blood to be hung, per Geena, order was in but blood hadn't been started yet. Stated she would start to work on it and call when ready.
[2022-05-22] MEDS: Senna/Docusate Sodium 1 Tablet 2 TABLET PO (21:15)
[2022-05-22] MEDS: Atorvastatin Calcium 10 MG Tablet PO (21:15)
[2022-05-22] MEDS: RisperiDONE 1 MG Tablet PO (21:15)
[2022-05-22] MEDS: Polyethylene Glycol 3350 17 GM PACKET PO (21:16)
[2022-05-22 21:41] LABS: Bedside Glucose 137 mg/dL (74-106)
[2022-05-23] VITALS (14 sets, daily range): BP systolic 118–129; BP diastolic 57–98; PULSE 53–111; RESP 15–22; TEMP 37.1–37.6; O2SAT 89–100
[2022-05-23] MEDS: oxyCODONE 5 MG Tablet 10 MG PO ×3 (01:12→21:50)
[2022-05-23] MEDS: Ipratropium/Albuterol Sulfate 3 ML AMPUL.NEB INHALATION ×5 (02:18→20:08)
[2022-05-23 05:34] LABS: Absolute Lymphocyte Count 0.21 X10^3/uL (0.83-4.51); Absolute Neutrophil Count 7.8 X10^3/uL (2.0-7.7); Basophil# 0.01 X10^3/uL; Basophil% 0.1 % (0-1); Eosinophil# 0.02 X10^3/uL; Eosinophils% 0.2 % (0-5); Hematocrit 23.9 % (37-47); Hemoglobin 7.6 g/dL (12.0-15.0); Lymphocyte # 0.21 X10^3/ul (0.83-4.51); Lymphocyte % 2.5 % (19-41); Mean Corp Hgb Conc 31.8 g/dL (32-36); Mean Corpuscular Hgb 29.6 pg (27.0-32.0); Mean Platelet Vol. 11.7 fl (6.2-12.0); Monocyte% 4.7 % (0-10); NRBC Flagged by Analyzer 0 % (0-5); Neutrophil % 91.4 % (47-70); POSITIVE COUNT YES; POSITIVE DIFFERENTIAL YES; Platelet Count 85 K/mm3 (150-450); RBC Distribution Width CV 16.1 % (11.6-14.6); RBC Distribution Width SD 55.1 fl (35.1-43.9); Red Blood Count 2.57 M/mm3 (4.2-5.4); White Blood Count 8.5 K/mm3 (4.4-11.0)
[2022-05-23 05:41] LABS: Differential Indicated SCAN CRITERIA MET
[2022-05-23 05:45] LABS: Anion Gap 4 (5-15); BUN 23 mg/dL (7-18); BUN/Creat Ratio 44.7 RATIO (10-20); Calcium,Total 8.5 mg/dL (8.5-10.1); Chloride 101 mmol/L (98-107); Creatinine, Serum 0.51 mg/dL (0.55-1.02); EST Glomerular Filtration Rate 124 mL/min (>60); Est Glom Filt Rate - Afr Amer 151 mL/min (>60); Estimated Creatinine Clearance 33.06 ml/min; Glucose 86 mg/dL (74-106); Potassium 3.8 mmol/L (3.5-5.1); Sodium Level 136 mmol/L (136-145)
[2022-05-23 06:17] LABS: Differential Comment SCANNED
[2022-05-23] MEDS: Menthol/Lanolin/Calamine/Znox 113 GM Tube 1 APPLIC TOPICAL ×3 (06:49→21:51)
[2022-05-23] MEDS: Sodium Chloride 1 GM Tablet PO ×3 (06:49→21:51)
--- NOTE | 2022-05-23 07:19 | PCM.PN.INT ---
Assessment & Plan Assessment/Plan (1) Acute respiratory failure with hypoxia: (2) Pneumonia: QUALIFIERS: Pneumonia type: due to Pneumococcus Laterality: right Lung location: middle lobe of lung Qualified Code(s): J13 - Pneumonia due to Streptococcus pneumoniae (3) History of lung cancer: (4) Severe protein-calorie malnutrition: PLAN: Plan RECOMMENDATIONS: 1. Continue to wean supplemental oxygen as tolerated. Walking oximetry prior to discharge 2. Complete a 7-day course of Levaquin 3. Hold on blood transfusion unless patient becomes hypotensive 4. Defer to cardiology on initiation of baseline meds. 5. Wean steroids over the next 12 to 14 days 6. Continue scheduled BuSpar twice daily to address underlying anxiety. 7. Continue to monitor H&H daily. Transfuse if hemoglobin drops below 7 g/dL. Transfuse 1 unit of packed red blood cells 8. Hold anticoagulation until GI work-up can be performed. Await GI work-up. Continue PPI therapy. 9. Likely okay to be discharged from a pulmonary perspective, but does have GI issues that may need to be addressed IMPRESSIONS: 1.??Acute hypoxic respiratory failure in the setting of COPD and history of small cell lung cancer The patient presented with an acute COPD exacerbation which appears to be secondary to a right upper lobe infiltrate. The patient has slowly improved from a respiratory perspective. She remains on appropriate antimicrobials, scheduled bronchodilators and steroids. Although the patient was able to be extubated on 05/14, she decompensated from a respiratory perspective approximately 12 hours later and had to be reintubated. Clinical concern that the patient's underlying anemia and anxiety may have contributed to her decompensation. With further volume optimization and stabilization of her anemia status, the patient was able to be extubated once again on May 17. She had been doing well from a respiratory perspective until May 19, when she fell and developed worsening hypoxia and hypotension. The patient will be maintained on supplemental oxygen to maintain saturations at or above 90%. Patient appears to be at her baseline at this time for the last 2 days. Steroids will need to be weaned, but patient appears to be at her baseline from a respiratory standpoint he can be discharged when deemed appropriate by hospitalist. 2. Undifferentiated shock Resolved. The patient developed hypotension earlier this week, ultimately requiring the initiation of vasopressor support. The exact etiology for her hypotension is not entirely clear. She had been receiving diuretics and hemoglobin decreased so intravascular volume depletion is a possibility. However, the patient did receive some supplemental IV fluid hydration without significant improvement in her hemodynamic status. In addition to the aforementioned, an underlying urinary tract source of infection is also possible. Therefore, urine cultures have been sent. 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 The patient will be continued on appropriate PPI therapy. There are no overt signs of blood loss. Patient likely requires a GI work-up prior to reinitiation of anticoagulation 4.??Cardiomyopathy/paroxysmal A. fib/SVT Continue medical management per cardiology recommendations. Defer to cardiology on timing of reinitiation of diuretics 5.??Chronic pain syndrome/osteoporosis/GERD with history of GI bleed/CAD/debility Complicates care, management, recovery and prognosis.? Continue supportive measures as noted above. Physical therapy to work with the patient. Hold any transfusion for now unless patient becomes hypotensive. Possible GI work-up during this hospitalization or as an outpatient. Defer to hospitalist. Subjective Subjective Patient did well overnight. Patient had no adverse events with blood transfusion. No clinical blood loss has been noted. Patient is reporting baseline pain and has been doing well on her baseline nasal cannula oxygen. Objective Data Objective Data Vital Signs: Vital Signs Temp Pulse Resp BP Pulse Ox O2 Del Method O2 Flow Rate 37.1 C 58 L 15 125/61 H 97 Nasal Cannula 3 05/23/22 05:20 05/23/22 07:04 05/23/22 07:04 05/23/22 05:20 05/23/22 07:04 05/23/22 07:04 05/23/22 07:04 FiO2 30 05/17/22 09:00 Oxygen Flow Rate (L/min) [ 4 AMBULATING with Oxygen #3] Oxygen Flow Rate (L/min) [ 3 AMBULATING with Oxygen #2] Oxygen Flow Rate (L/min) [ 2 AMBULATING with Oxygen #1] Oxygen Flow Rate (L/min) [At 2 REST with Oxygen] Oxygen Flow Rate (L/min) 3 Oxygen Delivery Method Nasal Cannula Weight: 41.8 kg Body Mass Index (BMI) 20.5 Intake & Output: Intake and Output for Last 24 Hours 05/21/22 05/22/22 05/23/22 23:59 23:59 23:59 Intake Total 2297.53 / 2597.53 2074 / 2074 Output Total 1599 / 2049 2600 / 2600 450 / 450 Balance 697.53 / 547.53 -525 / -525 -450 / -450 Medical Nutrition Assessment Dietitian: Malnutrition Criteria Met Start: 05/17/22 11:27 Freq: Status: Active Protocol: Document 05/22/22 11:51 RMA (Rec: 05/22/22 11:51 RMA [id number]) Nutrition Malnutrition Evidence of Malnutrition Exists Yes Malnutrition (severe): Acute Illness/Injury Evidenced By Suboptimal Energy Intake ( Severe),Physical Changes ( Severe) Intake Problem Inadequate Oral Intake Etiology related to resp. failure Signs/Symptoms as evidenced by NPO status Status Resolved Problem Clinical Problem Chronic Disease or Condition Related Malnutrition Etiology severe, chronic malnutrition related to inadequate energy intake Signs/Symptoms as evidenced by severe muscle wasting/fat loss evident in orbital, clavicle, acromion, temporal areas per physical exam; estimated energy intake meeting <75% of estimated energy needs > 3 months Status Active Problem Recommendation Dietitian Recommendations/Changes Will continue sodium restricted w/ 1250mL fluid restriction per hospitalist; will fortify foods when possible. Will offer ensure plus high protein 120mL 4x/day w/ medpass although pt currently refusing. Pt not interested in other ONS at this time. Lab / Micro Data Attestation: I reviewed the patient's lab results. Result Diagrams: 05/23/22 05:20 05/23/22 05:20 Labs: Laboratory Results - last 24 hr 05/21/22 07:00: Crossmatch See Detail 05/22/22 11:13: POC Glucose 98 05/22/22 16:53: POC Glucose 124 H 05/22/22 21:21: POC Glucose 137 H 05/23/22 05:20: WBC 8.5, RBC 2.57 L, Hgb 7.6 L, Hct 23.9 L, MCV 93.0, MCH 29.6, MCHC 31.8 L, RDW Std Deviation 55.1 H, RDW Coeff of Surinder 16.1 H, Plt Count 85 L, MPV 11.7, Immature Gran % (Auto) 1.100 H, Neut % (Auto) 91.4 H, Lymph % (Auto) 2.5 L, [place] % (Auto) 4.7, Eos % (Auto) 0.2, Baso % (Auto) 0.1, Absolute Neuts (auto) 7.8 H, Absolute Lymphs (auto) 0.21 L, Nucleated RBC % 0, Differential Comment SCANNED 05/23/22 05:20: Sodium 136, Potassium 3.8, Chloride 101, Carbon Dioxide 31.0, Anion Gap 4 L, BUN 23 H, Creatinine 0.51 L, Estim Creat Clear Calc 33.06, Est GFR (MDRD) Af Amer 151, Est GFR (MDRD) Non-Af 124, BUN/Creatinine Ratio 44.7 H, Glucose 86, Calcium 8.5, Phosphorus 3.0 Micro: Microbiology 05/19/22 22:25 Urine Catheter - Bailey Urine Culture - Final Presumptive C albicans 05/19/22 23:05 Blood Culture (Wb) - Arm Left Blood Culture - Preliminary No growth in 48 hours. 05/19/22 22:35 Blood Culture (Wb) - Pic Blood Culture - Preliminary No growth in 48 hours. 05/14/22 20:05 Sputum, Tracheal Aspirate Gram Stain - Final 05/14/22 20:05 Sputum, Tracheal Aspirate Respiratory Culture - Final Mixed normal respiratory mariano. No Streptococcus pneumoniae, beta-hemolytic Streptococcus or Staphylococcus aureus isolated. 05/11/22 11:50 Blood Culture (Wb) - Right Wrist Blood Culture - Final No growth in 5 days. 05/11/22 11:30 Blood Culture (Wb) #2 - Left Wrist Blood Culture - Final No growth in 5 days. 05/11/22 00:00 Urine Catheter - Bailey Urine Culture - Final Culture exhibits no growth. 05/11/22 19:40 Sputum, Expectorated/Coughed Gram Stain - Final 05/11/22 19:40 Sputum, Expectorated/Coughed Respiratory Culture - Final 05/11/22 21:45 Urine Catheter - Bailey Legionella Antigen - Final 05/11/22 21:45 Urine Catheter - Bailey Streptococcus pneumoniae Antigen (M - Final 05/11/22 11:21 Nasal Secretion SARS-CoV-2 & FLU Antigen (Rapid) - Final Physical Exam Const alert, oriented x3 and no apparent distress Constitutional Narrative: Appears older than stated age HEENT head/scalp atraumatic, moist oral mucous membranes and oropharynx normal General Ear: hearing grossly impaired left Eyes PERRL, EOMs intact bilaterally and no scleral icterus Neck full ROM and supple Resp normal respiratory effort, no retractions, no use of accessory muscles and clear to auscultation bilaterally Resp Narrative: Severely diminished diffusely Auscultation: Negative for rales, rhonchi or wheezes Cardio regular rate, regular rhythm, S1 normal heart sound, S2 normal heart sound, no murmurs, no rub, no gallops and no clicks GI normal to inspection, nondistended, normoactive bowel sounds, soft to palpation and non-tender GI Narrative: Scaphoid abdomen Extremity no clubbing, cyanosis or edema Extremity Narrative: 2+ pedal pulses Neuro oriented x3, moves all extremities and no focal motor deficits Neuro Narrative: Severe generalized weakness Speech: speech normal Psych Psych Narrative: Slightly anxious secondary to pending blood transfusion Mood & Affect: anxious Charges/Coding Visit Charges Inpatient E&M: 57544 Subs Hosp L2
--- NOTE | 2022-05-23 07:30 | PCM.PN.HOSP ---
Subjective Subjective Follow-up on hypotension/pneumonia/acute on chronic respiratory failure/shock: Patient was seen by me. She is alert oriented x3. She is hard of hearing. She is on 3 L of oxygen which is her baseline. She denied any dizziness or palpitations. She has been off pressors. Objective Data Objective Data Vital Signs: Vital Signs Temp Pulse Resp BP Pulse Ox O2 Del Method O2 Flow Rate 98.8 F 58 L 15 125/61 H 97 Nasal Cannula 3 05/23/22 05:20 05/23/22 07:04 05/23/22 07:04 05/23/22 05:20 05/23/22 07:04 05/23/22 07:04 05/23/22 07:04 FiO2 30 05/17/22 09:00 Oxygen Flow Rate (L/min) [ 4 AMBULATING with Oxygen #3] Oxygen Flow Rate (L/min) [ 3 AMBULATING with Oxygen #2] Oxygen Flow Rate (L/min) [ 2 AMBULATING with Oxygen #1] Oxygen Flow Rate (L/min) [At 2 REST with Oxygen] Oxygen Flow Rate (L/min) 3 Oxygen Delivery Method Nasal Cannula Weight: 41.8 kg Body Mass Index (BMI) 20.5 Intake & Output: Intake and Output for Last 24 Hours 05/21/22 05/22/22 05/23/22 23:59 23:59 23:59 Intake Total 2297.53 / 2597.53 5 / 5 Output Total 1599 / 0 2600 / 2600 450 / 450 Balance 697.53 / 547.53 -525 / -525 -450 / -450 Medical Nutrition Assessment Dietitian: Malnutrition Criteria Met Start: 05/17/22 11:27 Freq: Status: Active Protocol: Document 05/22/22 11:51 RMA (Rec: 05/22/22 11:51 RMA [id number]) Nutrition Malnutrition Evidence of Malnutrition Exists Yes Malnutrition (severe): Acute Illness/Injury Evidenced By Suboptimal Energy Intake ( Severe),Physical Changes ( Severe) Intake Problem Inadequate Oral Intake Etiology related to resp. failure Signs/Symptoms as evidenced by NPO status Status Resolved Problem Clinical Problem Chronic Disease or Condition Related Malnutrition Etiology severe, chronic malnutrition related to inadequate energy intake Signs/Symptoms as evidenced by severe muscle wasting/fat loss evident in orbital, clavicle, acromion, temporal areas per physical exam; estimated energy intake meeting <75% of estimated energy needs > 3 months Status Active Problem Recommendation Dietitian Recommendations/Changes Will continue sodium restricted w/ 1250mL fluid restriction per hospitalist; will fortify foods when possible. Will offer ensure plus high protein 120mL 4x/day w/ medpass although pt currently refusing. Pt not interested in other ONS at this time. Lab / Micro Data Result Diagrams: 05/23/22 05:20 05/23/22 05:20 Labs: Laboratory Results - last 24 hr 05/21/22 07:00: Crossmatch See Detail 05/22/22 11:13: POC Glucose 98 05/22/22 16:53: POC Glucose 124 H 05/22/22 21:21: POC Glucose 137 H 05/23/22 05:20: WBC 8.5, RBC 2.57 L, Hgb 7.6 L, Hct 23.9 L, MCV 93.0, MCH 29.6, MCHC 31.8 L, RDW Std Deviation 55.1 H, RDW Coeff of Surinder 16.1 H, Plt Count 85 L, MPV 11.7, Immature Gran % (Auto) 1.100 H, Neut % (Auto) 91.4 H, Lymph % (Auto) 2.5 L, [place] % (Auto) 4.7, Eos % (Auto) 0.2, Baso % (Auto) 0.1, Absolute Neuts (auto) 7.8 H, Absolute Lymphs (auto) 0.21 L, Nucleated RBC % 0, Differential Comment SCANNED 05/23/22 05:20: Sodium 136, Potassium 3.8, Chloride 101, Carbon Dioxide 31.0, Anion Gap 4 L, BUN 23 H, Creatinine 0.51 L, Estim Creat Clear Calc 33.06, Est GFR (MDRD) Af Amer 151, Est GFR (MDRD) Non-Af 124, BUN/Creatinine Ratio 44.7 H, Glucose 86, Calcium 8.5, Phosphorus 3.0 Micro: Microbiology 05/19/22 22:25 Urine Catheter - Bailey Urine Culture - Final Presumptive C albicans 05/19/22 23:05 Blood Culture (Wb) - Arm Left Blood Culture - Preliminary No growth in 48 hours. 05/19/22 22:35 Blood Culture (Wb) - Pic Blood Culture - Preliminary No growth in 48 hours. 05/14/22 20:05 Sputum, Tracheal Aspirate Gram Stain - Final 05/14/22 20:05 Sputum, Tracheal Aspirate Respiratory Culture - Final Mixed normal respiratory mariano. No Streptococcus pneumoniae, beta-hemolytic Streptococcus or Staphylococcus aureus isolated. 05/11/22 11:50 Blood Culture (Wb) - Right Wrist Blood Culture - Final No growth in 5 days. 05/11/22 11:30 Blood Culture (Wb) #2 - Left Wrist Blood Culture - Final No growth in 5 days. 05/11/22 00:00 Urine Catheter - Bailey Urine Culture - Final Culture exhibits no growth. 05/11/22 19:40 Sputum, Expectorated/Coughed Gram Stain - Final 05/11/22 19:40 Sputum, Expectorated/Coughed Respiratory Culture - Final 05/11/22 21:45 Urine Catheter - Bailey Legionella Antigen - Final 05/11/22 21:45 Urine Catheter - Bailey Streptococcus pneumoniae Antigen (M - Final 05/11/22 11:21 Nasal Secretion SARS-CoV-2 & FLU Antigen (Rapid) - Final Physical Exam Narrative Physical exam: General: Alert, Oriented x3, Cooperative, very frail, on 3 L of oxygen HEENT: Atraumatic Oral: Moist Mucosa Neck: Supple Lungs: Diminished to auscultation Cardiovascular: HS I+II, regular, no murmurs Abdomen: Bowel Sounds Present, Soft, Non Tender Extremities: No edema Skin: No rashes, No breakdown Neurological: Grossly intact Psych/Mental Status: Appropriate Assessment & Plan Assessment/Plan (1) Cardiomyopathy: (2) SVT (supraventricular tachycardia): (3) Acute respiratory failure with hypoxia: (4) Severe protein-calorie malnutrition: (5) Pneumonia: QUALIFIERS: Laterality: right Lung location: middle lobe of lung Pneumonia type: due to Pneumococcus Qualified Code(s): J13 - Pneumonia due to Streptococcus pneumoniae (6) Anemia: QUALIFIERS: Anemia type: unspecified type Qualified Code(s): D64.9 - Anemia, unspecified (7) Shock: PLAN: Plan 1. Acute on chronic hypoxic respiratory failure likely secondary to right upper lobe pneumonia/lung failure, COPD exacerbation Hypoxia appears slightly improved, currently on home 3 L of oxygen Continue to encourage use of incentive spirometer [employer] following 2. Shock, likely secondary to hypovolemia/hemorrhagic, off pressors. Blood, urine, sputum/tracheal aspirate, cultures are negative x48 hours Continue to hold diuretics and antihypertensives 3. A. fib with RVR, heart rate is improved, continue oral amiodarone and metoprolol Cardiology following Continue to hold off on Eliquis 4. Elevated LFTs likely secondary to #2, will trend 5. Anemia secondary to acute blood loss from probable GI bleed, Hemoglobin this morning is 7.6 Status post 5 units of packed RBCs transfusion Will trend 6. 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 Rest of her chronic medical conditions including small cell lung CA/CAD status post stent/hyperlipidemia/COPD/osteoporosis/chronic pain/GERD, All complicates current medical care for this patient Disposition: Overall prognosis is fairly poor as patient is very frail and severely malnourished. Anxiety contributes to respiratory distress. Very debilitated but reluctant to be placed. Refused palliative care at her previous admission. Will discuss further patient is likely not to be discharged until next week as clinical status has deteriorated in last 24 hours
[2022-05-23] MEDS: predniSONE 20 MG Tablet 40 MG PO (08:00)
[2022-05-23] MEDS: Potassium Chloride Oral Tablet 20 MEQ PO ×2 (08:01→16:15)
[2022-05-23] MEDS: morphine SR 15 MG Tablet PO ×2 (10:11→21:50)
[2022-05-23] MEDS: Pantoprazole Sodium 40 MG Tablet PO ×2 (10:12→21:50)
[2022-05-23] MEDS: Loratadine 10 MG Tablet PO (10:12)
[2022-05-23] MEDS: Senna/Docusate Sodium 1 Tablet 2 TABLET PO ×2 (10:12→21:51)
[2022-05-23] MEDS: Magnesium Chloride 64 MG Delay Rel.Tablet 128 MG PO (10:12)
[2022-05-23] MEDS: Amiodarone 200 MG Tablet PO (10:13)
[2022-05-23] MEDS: busPIRone 5 MG Tablet 10 MG PO ×2 (10:14→21:49)
--- NOTE | 2022-05-23 10:49 | PCM.PN.CARD ---
Subjective Subjective The patient remains in the ICU. She does not appear to complain of any new acute cardiovascular symptoms. Objective Data Vital Signs: Vital Signs Temp Pulse Resp BP Pulse Ox O2 Del Method O2 Flow Rate 98.8 F 58 L 15 125/61 H 97 Nasal Cannula 3 05/23/22 05:20 05/23/22 07:04 05/23/22 07:04 05/23/22 05:20 05/23/22 07:04 05/23/22 07:50 05/23/22 07:04 FiO2 3 05/23/22 07:50 Oxygen Flow Rate (L/min) [ 4 AMBULATING with Oxygen #3] Oxygen Flow Rate (L/min) [ 3 AMBULATING with Oxygen #2] Oxygen Flow Rate (L/min) [ 2 AMBULATING with Oxygen #1] Oxygen Flow Rate (L/min) [At 2 REST with Oxygen] Oxygen Flow Rate (L/min) 3 Oxygen Delivery Method Nasal Cannula Weight: 92 lb 2.452 oz Body Mass Index (BMI) 20.5 Intake & Output: Intake and Output for Last 24 Hours 05/21/22 05/22/22 05/23/22 23:59 23:59 23:59 Intake Total 2297.53 / 2597.53 2075 / 2075 0 / 0 Output Total 1600 / 2050 2600 / 2600 450 / 450 Balance 697.53 / 547.53 -525 / -525 -450 / -450 Lab / Micro Data Result Diagrams: 05/23/22 05:20 05/23/22 05:20 Labs: Laboratory Results - last 24 hr 05/21/22 07:00: Crossmatch See Detail 05/22/22 11:13: POC Glucose 98 05/22/22 16:53: POC Glucose 124 H 05/22/22 21:21: POC Glucose 137 H 05/23/22 05:20: WBC 8.5, RBC 2.57 L, Hgb 7.6 L, Hct 23.9 L, MCV 93.0, MCH 29.6, MCHC 31.8 L, RDW Std Deviation 55.1 H, RDW Coeff of Surinder 16.1 H, Plt Count 85 L, MPV 11.7, Immature Gran % (Auto) 1.100 H, Neut % (Auto) 91.4 H, Lymph % (Auto) 2.5 L, Mccreary % (Auto) 4.7, Eos % (Auto) 0.2, Baso % (Auto) 0.1, Absolute Neuts (auto) 7.8 H, Absolute Lymphs (auto) 0.21 L, Nucleated RBC % 0, Differential Comment SCANNED 05/23/22 05:20: Sodium 136, Potassium 3.8, Chloride 101, Carbon Dioxide 31.0, Anion Gap 4 L, BUN 23 H, Creatinine 0.51 L, Estim Creat Clear Calc 33.06, Est GFR (MDRD) Af Amer 151, Est GFR (MDRD) Non-Af 124, BUN/Creatinine Ratio 44.7 H, Glucose 86, Calcium 8.5, Phosphorus 3.0 Micro: Microbiology 05/19/22 22:25 Urine Catheter - Bailey Urine Culture - Final Presumptive C albicans 05/19/22 23:05 Blood Culture (Wb) - Arm Left Blood Culture - Preliminary No growth in 48 hours. 05/19/22 22:35 Blood Culture (Wb) - Pic Blood Culture - Preliminary No growth in 48 hours. Cardiology Labs/Tests 05/23/22 05:20: WBC 8.5, RBC 2.57 L, Hgb 7.6 L, Hct 23.9 L, MCV 93.0, MCH 29.6, MCHC 31.8 L, Plt Count 85 L, MPV 11.7, Immature Gran % (Auto) 1.100 H, Neut % (Auto) 91.4 H, Lymph % (Auto) 2.5 L, Mccreary % (Auto) 4.7, Eos % (Auto) 0.2, Baso % (Auto) 0.1, Absolute Neuts (auto) 7.8 H, Nucleated RBC % 0 05/23/22 05:20: Sodium 136, Potassium 3.8, Chloride 101, Carbon Dioxide 31.0, Anion Gap 4 L, BUN 23 H, Creatinine 0.51 L, Est GFR (MDRD) Af Amer 151, Est GFR (MDRD) Non-Af 124, BUN/Creatinine Ratio 44.7 H, Glucose 86, Calcium 8.5, Phosphorus 3.0 Rhythm: Sinus rhythm Physical Exam Const alert, oriented x3 and no apparent distress Orientation / Consciousness: awake HEENT normocephalic, head/scalp atraumatic and hearing grossly normal bilaterally Eyes PERRL, EOMs intact bilaterally, conjunctivae normal and no scleral icterus Neck full ROM, supple and no JVD Resp normal respiratory effort Auscultation: rhonchi throughout (Scattered (right greater than left)) Cardio regular rate, regular rhythm, S1 normal heart sound and S2 normal heart sound Heart Sounds: murmur systolic II/ soft mid left sternal border GI normal to inspection, nondistended, normoactive bowel sounds Extremity no pedal edema Skin no rashes or lesions noted Assessment & Plan Assessment/Plan (1) SVT (supraventricular tachycardia): PLAN: The patient has a history of SVT. It appears that she has been predominantly in sinus rhythm with a question of recurrent paroxysmal atrial fibrillation. At the moment her rate control therapy has been on hold secondary to concerns of hypotension. She is continuing her antiarrhythmic therapy with amiodarone. (2) Paroxysmal atrial fibrillation: PLAN: The patient has a history of PAF. At the present time she is noted to be in sinus rhythm. She does appear to have episodes appearing compatible with aberrant conduction. She will continue medical management as deemed appropriate with respect to rate control therapy as she is able based upon her blood pressure recordings. She is continuing her antiarrhythmic therapy with amiodarone at 200 mg p.o. daily. Her anticoagulation therapy has been on hold secondary to her anemia. (3) Wide-complex tachycardia: PLAN: The patient has had episodes of wide-complex tachycardia. It appears to be irregular. There does not appear to be consistent underlying and repetitive atrial morphology. There is concerned this may be a form of atrial fibrillation with aberrancy. At the moment the patient's rate control therapy with her beta-anmol is on hold secondary to her hypotension. She will continue her antiarrhythmic therapy with her amiodarone. She has undergone follow-up limited transthoracic echocardiogram. The results have been reviewed. As previously noted her overall LV systolic function/LVEF appears to have improved compared to her arrival at the hospital. (4) CAD (coronary artery disease): PLAN: The patient has a history of CAD. The details are unknown. At the moment she will continue medical management as best as possible. (5) S/P PTCA (percutaneous transluminal coronary angioplasty): PLAN: The patient is reported as having a history of previous PCI at an outside institution. Again the details are unknown. She will continue medical therapy. (6) Cardiomyopathy: PLAN: The patient has a history of a previous transient cardiomyopathy. Her most recent echocardiogram was reviewed. Her overall LV systolic function/LVEF appears to have improved. It appears the patient has demonstrated when she has her tachycardia/tachydysrhythmia that her LV systolic function/LVEF declines and when she is back in a sinus rhythm with improved rate control her LV systolic function/LVEF improves. At the moment she appears without any acute symptoms of ongoing CHF or pulmonary edema. She will continue medical management as she is able based upon her blood pressure changes, etc. (7) Cardiac murmur: PLAN: She does have a cardiac murmur. This may be secondary to a combination of her underlying noncardiac medical conditions including her anemia, superimposed upon her echocardiographic findings of underlying valvular heart related issues especially with respect to an element of calcification of the aortic valve. (8) AAA (abdominal aortic aneurysm): PLAN: The patient has a history of a AAA. Apparently this is undergone repair in the past based upon her past medical history. (9) Pneumonia: QUALIFIERS: Pneumonia type: due to Pneumococcus Laterality: right Lung location: middle lobe of lung Qualified Code(s): J13 - Pneumonia due to Streptococcus pneumoniae PLAN: The patient is being treated for underlying pneumonia superimposed upon her history of lung carcinoma. She is no longer mechanically intubated. She is continuing medical management. She has continued O2 support as needed. (10) History of lung cancer: PLAN: The patient has a history of lung carcinoma. She will continue evaluation care per hematology and oncology. Apparently there has been discussions with the patient regarding the possibility of palliative/hospice care. According to the [facility] ICU staff she has declined this option at this time. (11) Anemia: QUALIFIERS: Anemia type: unspecified type Qualified Code(s): D64.9 - Anemia, unspecified PLAN: The patient remains with anemia. Her hemoglobin declined. She has subsequently received additional PRBCs. Her hemoglobin has now increased to 7.6. She will continue evaluation care by internal medicine and gastroenterology. Addt'l Comments From a cardiovascular standpoint, if and when, the patient's vital signs appear stable , then she should ideally be placed on medical management for her cardiovascular diagnoses which could include a combination of agents such as nitrates, beta-blockers, afterload reducing agents, as well as her lipid-lowering agents. Also, if and when, the patient's hemoglobin is thought to be stable , then she could resume her anticoagulant therapy. In the interim she will continue to be monitored in the ICU as she undergoes her ongoing noncardiac evaluation and care. Comment: Time spent in the patient's evaluation and care: 40 minutes. Procedure Criteria Type of Procedure Procedure Type: Elective Elective Risks - COVID COVID Risk Discussion: The surgeon/proceduralist and patient have discussed in detail the risk of exposure to and/or potential harm posed by the COVID-19 virus with having a surgery/procedure at this time versus the risk of delaying the surgery/procedure. It is not possible to know either the risk of delaying the surgery or procedure or chance of getting an infection with perfect accuracy, but a joint decision was made between the patient and the surgeon/proceduralist to proceed at this time with the scheduled surgery/procedure as indicated on the consent form.
[2022-05-23] MEDS: RisperiDONE 0.5 MG Tablet PO (11:11)
[2022-05-23 11:55] LABS: Bedside Glucose 122 mg/dL (74-106)
--- NOTE | 2022-05-23 15:07 | CPS ---
using PEP on own
[2022-05-23] MEDS: Insulin Lispro 100 UNIT/ML INSULN.PEN SC (16:14)
[2022-05-23 16:45] LABS: Bedside Glucose 201 mg/dL (74-106)
[2022-05-23] MEDS: Atorvastatin Calcium 10 MG Tablet PO (21:50)
[2022-05-23] MEDS: MELATONIN 3 MG TABLET PO (21:50)
[2022-05-23] MEDS: RisperiDONE 1 MG Tablet PO (21:52)
[2022-05-23 21:56] LABS: Bedside Glucose 115 mg/dL (74-106)
[2022-05-24] VITALS (14 sets, daily range): BP systolic 101–114; BP diastolic 52–64; PULSE 63–109; RESP 13–20; TEMP 36.6–37.2; O2SAT 91–99
[2022-05-24 05:04] LABS: Absolute Lymphocyte Count 0.22 X10^3/uL (0.83-4.51); Absolute Neutrophil Count 6.8 X10^3/uL (2.0-7.7); Eosinophil# 0.04 X10^3/uL; Eosinophils% 0.5 % (0-5); Hemoglobin 7.6 g/dL (12.0-15.0); Lymphocyte # 0.22 X10^3/ul (0.83-4.51); Lymphocyte % 2.9 % (19-41); Mean Corp Hgb Conc 31.7 g/dL (32-36); Mean Corpuscular Hgb 29.6 pg (27.0-32.0); Mean Corpuscular Volume 93.4 fL (81-99); Mean Platelet Vol. 11.9 fl (6.2-12.0); Monocyte# 0.34 X10^3/uL; Monocyte% 4.5 % (0-10); NRBC Flagged by Analyzer 0.4 % (0-5); Neutrophil # 6.81 X10^3/uL (2.7-7.7); Neutrophil % 90.9 % (47-70); POSITIVE COUNT YES; POSITIVE DIFFERENTIAL YES; Platelet Count 86 K/mm3 (150-450); RBC Distribution Width CV 15.4 % (11.6-14.6); RBC Distribution Width SD 52.3 fl (35.1-43.9); Red Blood Count 2.57 M/mm3 (4.2-5.4); White Blood Count 7.5 K/mm3 (4.4-11.0)
[2022-05-24 05:06] LABS: Differential Indicated SCAN CRITERIA MET
[2022-05-24 05:20] LABS: ALB/GLOB Ratio 0.5 RATIO (0.9-2.4); AST(SGOT) 21 U/L (15-37); Alanine Aminotransfer ALT/SGPT 76 U/L (13-56); Albumin, Serum 1.6 g/dL (3.2-5.0); Alkaline Phosphatase 192 U/L (45-117); Anion Gap 4 (5-15); BUN 26 mg/dL (7-18); Calcium,Total 8.5 mg/dL (8.5-10.1); Chloride 99 mmol/L (98-107); Creatinine, Serum 0.41 mg/dL (0.55-1.02); EST Glomerular Filtration Rate 160 mL/min (>60); Est Glom Filt Rate - Afr Amer 194 mL/min (>60); Estimated Creatinine Clearance 33.06 ml/min; Globulin 3.4 g/dL (2.2-4.2); Glucose 77 mg/dL (74-106); Potassium 4.1 mmol/L (3.5-5.1); Sodium Level 134 mmol/L (136-145)
[2022-05-24] MEDS: oxyCODONE 5 MG Tablet 10 MG PO ×3 (05:46→21:45)
[2022-05-24] MEDS: Menthol/Lanolin/Calamine/Znox 113 GM Tube 1 APPLIC TOPICAL ×3 (05:46→21:44)
[2022-05-24] MEDS: Sodium Chloride 1 GM Tablet PO ×3 (05:47→21:42)
[2022-05-24 06:25] LABS: Bedside Glucose 78 mg/dL (74-106)
[2022-05-24 07:01] LABS: Differential Comment SCANNED; Platelet Estimate SLT DEC (ADEQ)
[2022-05-24] MEDS: Ipratropium/Albuterol Sulfate 3 ML AMPUL.NEB INHALATION ×4 (07:26→19:55)
[2022-05-24] MEDS: Potassium Chloride Oral Tablet 20 MEQ PO ×2 (08:05→16:17)
[2022-05-24] MEDS: predniSONE 20 MG Tablet 40 MG PO (08:06)
--- NOTE | 2022-05-24 08:16 | PN.CC_ITS ---
Assessment & Plan Assessment/Plan (1) Acute respiratory failure with hypoxia: (2) Pneumonia: QUALIFIERS: Pneumonia type: due to Pneumococcus Laterality: right Lung location: middle lobe of lung Qualified Code(s): J13 - Pneumonia due to Streptococcus pneumoniae (3) History of lung cancer: (4) Severe protein-calorie malnutrition: PLAN: Plan RECOMMENDATIONS: 1. Continue to wean supplemental oxygen as tolerated. Walking oximetry prior to discharge 2. Completed Levaquin. Monitor clinically. 3. Hold on blood transfusion unless patient becomes hypotensive 4. Appreciate cardiology input. 5. Wean steroids to 30 mg tomorrow. Wean off over the next 8 to 12 days 6. Continue scheduled BuSpar twice daily to address underlying anxiety. 7. Continue to monitor H&H daily. Transfuse if hemoglobin drops below 7 g/dL. Transfuse 1 unit of packed red blood cells 8. Hold anticoagulation until GI work-up can be performed. Await GI work- up. Continue PPI therapy. 9. Likely okay to be discharged from a pulmonary perspective, but does have GI issues that may need to be addressed. Inpatient/outpatient? IMPRESSIONS: 1.??Acute hypoxic respiratory failure in the setting of COPD and history of small cell lung cancer The patient presented with an acute COPD exacerbation which appears to be secondary to a right upper lobe infiltrate. The patient has slowly improved fro m a respiratory perspective. She remains on appropriate antimicrobials, scheduled bronchodilators and steroids. Although the patient was able to be extubated on 05/14, she decompensated from a respiratory perspective approximately 12 hours later and had to be reintubated. Clinical concern that the patient's underlying anemia and anxiety may have contributed to her decompensation. With further volume optimization and stabilization of her anemia status, the patient was able to be extubated once again on May 17. She had been doing well from a respiratory perspective until May 19, when she fell and developed worsening hypoxia and hypotension. The patient will be maintained on supplemental oxygen to maintain saturations at or above 90%. Patient appears to be at her baseline at this time for the last 2 days. Steroids will be weaned tomorrow. 2. Undifferentiated shock Resolved. The patient developed hypotension earlier this week, ultimately requiring the initiation of vasopressor support. The exact etiology for her hypotension is not entirely clear. She had been receiving diuretics and hemoglobin decreased so intravascular volume depletion is a possibility. However, the patient did receive some supplemental IV fluid hydration without significant improvement in her hemodynamic status. In addition to the aforementioned, an underlying urinary tract source of infection is also possible. Therefore, urine cultures have been sent. 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 The patient will be continued on appropriate PPI therapy. There are no overt signs of blood loss. Patient likely requires a GI work-up prior to reinitiation of anticoagulation 4.??Cardiomyopathy/paroxysmal A. fib/SVT Continue medical management per cardiology recommendations. Defer to cardiology on timing of reinitiation of diuretics 5.??Chronic pain syndrome/osteoporosis/GERD with history of GI bleed/CAD/ debility Complicates care, management, recovery and prognosis.? Continue supportive measures as noted above. Physical therapy to work with the patient. Hold any transfusion for now unless patient becomes hypotensive. Possible GI work-up during this hospitalization or as an outpatient. Defer to hospitalist. Subjective Subjective Patient did well overnight. No clinical bleeding has been reported. Patient states her respiratory status is at its baseline. Patient did not require any change in FiO2 overnight. Patient is reporting that she is hungry. Objective Data Objective Data Vital Signs: Vital Signs Temp Pulse Resp BP Pulse Ox O2 Del Method O2 Flow Rate 36.8 C 82 17 106/60 93 Nasal Cannula 3 05/24/22 06:00 05/24/22 07:28 05/24/22 07:28 05/24/22 06:00 05/24/22 07:28 05/24/22 07:28 05/24/22 07:28 FiO2 3 05/23/22 15:35 Oxygen Flow Rate (L/min) [ 4 AMBULATING with Oxygen #3] Oxygen Flow Rate (L/min) [ 3 AMBULATING with Oxygen #2] Oxygen Flow Rate (L/min) [ 2 AMBULATING with Oxygen #1] Oxygen Flow Rate (L/min) [At 2 REST with Oxygen] Oxygen Flow Rate (L/min) 3 Oxygen Delivery Method Nasal Cannula Weight: 39.3 kg Body Mass Index (BMI) 20.5 Intake & Output: Intake and Output for Last 24 Hours 05/22/22 05/23/22 05/24/22 23:59 23:59 23:59 Intake Total 2074 0 / 0 Output Total 2600 / 2600 1475 / 1575 300 / 300 Balance -525 / -525 -1475 / -1575 -300 / -300 Medical Nutrition Assessment Dietitian: Malnutrition Criteria Met Start: 05/17/22 11:27 Freq: Status: Active Protocol: Document 05/22/22 11:51 RMA (Rec: 05/22/22 11:51 RMA [id number]) Nutrition Malnutrition Evidence of Malnutrition Exists Yes Malnutrition (severe): Acute Illness/Injury Evidenced By Suboptimal Energy Intake ( Severe),Physical Changes ( Severe) Intake Problem Inadequate Oral Intake Etiology related to resp. failure Signs/Symptoms as evidenced by NPO status Status Resolved Problem Clinical Problem Chronic Disease or Condition Related Malnutrition Etiology severe, chronic malnutrition related to inadequate energy intake Signs/Symptoms as evidenced by severe muscle wasting/fat loss evident in orbital, clavicle, acromion, temporal areas per physical exam; estimated energy intake meeting <75% of estimated energy needs > 3 months Status Active Problem Recommendation Dietitian Recommendations/Changes Will continue sodium restricted w/ 1250mL fluid restriction per hospitalist; will fortify foods when possible. Will offer ensure plus high protein 120mL 4x/day w/ medpass although pt currently refusing. Pt not interested in other ONS at this time. Lab / Micro Data Attestation: I reviewed the patient's lab results. Result Diagrams: 05/24/22 04:45 05/24/22 04:45 Labs: Laboratory Results - last 24 hr 05/23/22 11:32: POC Glucose 122 H 05/23/22 16:13: POC Glucose 201 H 05/23/22 21:32: POC Glucose 115 H 05/24/22 04:45: WBC 7.5, RBC 2.57 L, Hgb 7.6 L, Hct 24.0 L, MCV 93.4, MCH 29.6, MCHC 31.7 L, RDW Std Deviation 52.3 H, RDW Coeff of Surinder 15.4 H, Plt Count 86 L, MPV 11.9, Immature Gran % (Auto) 1.200 H, Neut % (Auto) 90.9 H, Lymph % (Auto) 2.9 L, [place] % (Auto) 4.5, Eos % (Auto) 0.5, Baso % (Auto) 0.0, Absolute Neuts (auto) 6.8, Absolute Lymphs (auto) 0.22 L, Nucleated RBC % 0.4, Differential Comment SCANNED, Platelet Estimate SLT 05/24/22 04:45: Sodium 134 L, Potassium 4.1, Chloride 99, Carbon Dioxide 31.0, Anion Gap 4 L, BUN 26 H, Creatinine 0.41 L, Estim Creat Clear Calc 33.06, Est GFR (MDRD) Af Amer 194, Est GFR (MDRD) Non-Af 160, BUN/Creatinine Ratio 63.0 H, Glucose 77, Calcium 8.5, Total Bilirubin 0.70, AST 21, ALT 76 H, Alkaline Phosphatase 192 H, Total Protein 5.0 L, Albumin 1.6 L, Globulin 3.4, Albu min/Globulin Ratio 0.5 L 05/24/22 05:44: POC Glucose 78 Micro: Microbiology 05/19/22 22:25 Urine Catheter - Bailey Urine Culture - Final Presumptive C albicans 05/19/22 23:05 Blood Culture (Wb) - Arm Left Blood Culture - Preliminary No growth in 48 hours. 05/19/22 22:35 Blood Culture (Wb) - Pic Blood Culture - Preliminary No growth in 48 hours. 05/14/22 20:05 Sputum, Tracheal Aspirate Gram Stain - Final 05/14/22 20:05 Sputum, Tracheal Aspirate Respiratory Culture - Final Mixed normal respiratory mariano. No Streptococcus pneumoniae, beta-hemolytic Streptococcus or Staphylococcus aureus isolated. 05/11/22 11:50 Blood Culture (Wb) - Right Wrist Blood Culture - Final No growth in 5 days. 05/11/22 11:30 Blood Culture (Wb) #2 - Left Wrist Blood Culture - Final No growth in 5 days. 05/11/22 00:00 Urine Catheter - Bailey Urine Culture - Final Culture exhibits no growth. 05/11/22 19:40 Sputum, Expectorated/Coughed Gram Stain - Final 05/11/22 19:40 Sputum, Expectorated/Coughed Respiratory Culture - Final 05/11/22 21:45 Urine Catheter - Bailey Legionella Antigen - Final 05/11/22 21:45 Urine Catheter - Bailey Streptococcus pneumoniae Antigen (M - Final 05/11/22 11:21 Nasal Secretion SARS-CoV-2 & FLU Antigen (Rapid) - Final Physical Exam Const alert, oriented x3 and no apparent distress Constitutional Narrative: Appears older than stated age HEENT head/scalp atraumatic, moist oral mucous membranes and oropharynx normal General Ear: hearing grossly impaired left Eyes PERRL, EOMs intact bilaterally and no scleral icterus Neck full ROM and supple Resp normal respiratory effort, no retractions, no use of accessory muscles and clear to auscultation bilaterally Resp Narrative: Severely diminished diffusely Auscultation: Negative for rales, rhonchi or wheezes Cardio regular rate, regular rhythm, S1 normal heart sound, S2 normal heart sound, no murmurs, no rub, no gallops and no clicks GI normal to inspection, nondistended, normoactive bowel sounds, soft to palpation and non-tender GI Narrative: Scaphoid abdomen Extremity no clubbing, cyanosis or edema Extremity Narrative: 2+ pedal pulses Neuro oriented x3, moves all extremities and no focal motor deficits Neuro Narrative: Severe generalized weakness Speech: speech normal Psych Mood & Affect: anxious Charges/Coding Visit Charges Inpatient E&M: 10440 Subs Hosp L2
--- NOTE | 2022-05-24 08:33 | PCM.PN.CARD ---
Subjective Subjective The patient appears to be awake and alert. She denies any acute cardiovascular symptoms at this time. She states she wants to go home . Objective Data Vital Signs: Vital Signs Temp Pulse Resp BP Pulse Ox O2 Del Method O2 Flow Rate 98.2 F 82 17 106/60 93 Nasal Cannula 3 05/24/22 06:00 05/24/22 07:28 05/24/22 07:28 05/24/22 06:00 05/24/22 07:28 05/24/22 08:15 05/24/22 08:15 FiO2 3 05/23/22 15:35 Oxygen Flow Rate (L/min) [ 4 AMBULATING with Oxygen #3] Oxygen Flow Rate (L/min) [ 3 AMBULATING with Oxygen #2] Oxygen Flow Rate (L/min) [ 2 AMBULATING with Oxygen #1] Oxygen Flow Rate (L/min) [At 2 REST with Oxygen] Oxygen Flow Rate (L/min) 3 Oxygen Delivery Method Nasal Cannula Weight: 86 lb 10.267 oz Body Mass Index (BMI) 20.5 Intake & Output: Intake and Output for Last 24 Hours 05/22/22 05/23/22 05/24/22 23:59 23:59 23:59 Intake Total 2075 / 2075 0 / 0 Output Total 2600 / 2600 1475 / 1575 300 / 300 Balance -525 / -525 -1475 / -1575 -300 / -300 Lab / Micro Data Result Diagrams: 05/24/22 04:45 05/24/22 04:45 Labs: Laboratory Results - last 24 hr 05/23/22 11:32: POC Glucose 122 H 05/23/22 16:13: POC Glucose 201 H 05/23/22 21:32: POC Glucose 115 H 05/24/22 04:45: WBC 7.5, RBC 2.57 L, Hgb 7.6 L, Hct 24.0 L, MCV 93.4, MCH 29.6, MCHC 31.7 L, RDW Std Deviation 52.3 H, RDW Coeff of Surinder 15.4 H, Plt Count 86 L, MPV 11.9, Immature Gran % (Auto) 1.200 H, Neut % (Auto) 90.9 H, Lymph % (Auto) 2.9 L, [place] % (Auto) 4.5, Eos % (Auto) 0.5, Baso % (Auto) 0.0, Absolute Neuts (auto) 6.8, Absolute Lymphs (auto) 0.22 L, Nucleated RBC % 0.4, Differential Comment SCANNED, Platelet Estimate SLT 05/24/22 04:45: Sodium 134 L, Potassium 4.1, Chloride 99, Carbon Dioxide 31.0, Anion Gap 4 L, BUN 26 H, Creatinine 0.41 L, Estim Creat Clear Calc 33.06, Est GFR (MDRD) Af Amer 194, Est GFR (MDRD) Non-Af 160, BUN/Creatinine Ratio 63.0 H, Glucose 77, Calcium 8.5, Total Bilirubin 0.70, AST 21, ALT 76 H, Alkaline Phosphatase 192 H, Total Protein 5.0 L, Albumin 1.6 L, Globulin 3.4, Albumin/Globulin Ratio 0.5 L 05/24/22 05:44: POC Glucose 78 Cardiology Labs/Tests 05/24/22 04:45: WBC 7.5, RBC 2.57 L, Hgb 7.6 L, Hct 24.0 L, MCV 93.4, MCH 29.6, MCHC 31.7 L, Plt Count 86 L, MPV 11.9, Immature Gran % (Auto) 1.200 H, Neut % (Auto) 90.9 H, Lymph % (Auto) 2.9 L, [place] % (Auto) 4.5, Eos % (Auto) 0.5, Baso % (Auto) 0.0, Absolute Neuts (auto) 6.8, Nucleated RBC % 0.4 05/24/22 04:45: Sodium 134 L, Potassium 4.1, Chloride 99, Carbon Dioxide 31.0, Anion Gap 4 L, BUN 26 H, Creatinine 0.41 L, Est GFR (MDRD) Af Amer 194, Est GFR (MDRD) Non-Af 160, BUN/Creatinine Ratio 63.0 H, Glucose 77, Calcium 8.5, Total Bilirubin 0.70 Rhythm: Sinus rhythm Physical Exam Const alert, oriented x3 and no apparent distress Orientation / Consciousness: awake HEENT normocephalic, head/scalp atraumatic and hearing grossly normal bilaterally Eyes PERRL, EOMs intact bilaterally, conjunctivae normal and no scleral icterus Neck full ROM, supple and no JVD Resp normal respiratory effort Auscultation: rhonchi throughout (Scattered (right greater than left)) Cardio regular rate, regular rhythm, S1 normal heart sound and S2 normal heart sound Heart Sounds: murmur systolic II/ soft mid left sternal border GI normal to inspection, nondistended, normoactive bowel sounds Extremity no pedal edema Skin no rashes or lesions noted Assessment & Plan Assessment/Plan (1) SVT (supraventricular tachycardia): PLAN: The patient has a history of SVT. It appears that she has been predominantly in sinus rhythm with a question of recurrent paroxysmal atrial fibrillation. At the moment her rate control therapy has been on hold secondary to concerns of hypotension. She is continuing her antiarrhythmic therapy with amiodarone. (2) Paroxysmal atrial fibrillation: PLAN: The patient has a history of PAF. At the present time she is noted to be in sinus rhythm. She does appear to have episodes appearing compatible with aberrant conduction. She will continue medical management as deemed appropriate with respect to rate control therapy as she is able based upon her blood pressure recordings. She is continuing her antiarrhythmic therapy with amiodarone at 200 mg p.o. daily. Her anticoagulation therapy has been on hold secondary to her anemia. (3) Wide-complex tachycardia: PLAN: The patient has had episodes of wide-complex tachycardia. It appears to be irregular. There does not appear to be consistent underlying and repetitive atrial morphology. There is concerned this may be a form of atrial fibrillation with aberrancy. At the moment the patient's rate control therapy with her beta-anmol is on hold secondary to her hypotension. She will continue her antiarrhythmic therapy with her amiodarone. (4) CAD (coronary artery disease): PLAN: The patient has a history of CAD. The details are unknown. At the moment she will continue medical management as best as possible. (5) S/P PTCA (percutaneous transluminal coronary angioplasty): PLAN: The patient is reported as having a history of previous PCI at an outside institution. Again the details are unknown. She will continue medical therapy. (6) Cardiomyopathy: PLAN: The patient has a history of a previous transient cardiomyopathy. Her most recent echocardiogram was reviewed. Her overall LV systolic function/LVEF appears to have improved. It appears the patient has demonstrated when she has her tachycardia/tachydysrhythmia that her LV systolic function/LVEF declines and when she is back in a sinus rhythm with improved rate control her LV systolic function/LVEF improves. At the moment she appears without any acute symptoms of ongoing CHF or pulmonary edema. She will continue medical management as she is able based upon her blood pressure changes, etc. (7) Cardiac murmur: PLAN: She does have a cardiac murmur. This may be secondary to a combination of her underlying noncardiac medical conditions including her anemia, superimposed upon her echocardiographic findings of underlying valvular heart related issues especially with respect to an element of calcification of the aortic valve. (8) AAA (abdominal aortic aneurysm): PLAN: The patient has a history of a AAA. Apparently this is undergone repair in the past based upon her past medical history. (9) Pneumonia: QUALIFIERS: Pneumonia type: due to Pneumococcus Laterality: right Lung location: middle lobe of lung Qualified Code(s): J13 - Pneumonia due to Streptococcus pneumoniae PLAN: The patient is being treated for underlying pneumonia superimposed upon her history of lung carcinoma. She is no longer mechanically intubated. She is continuing medical management. She has continued O2 support as needed. (10) History of lung cancer: PLAN: The patient has a history of lung carcinoma. She will continue evaluation care per hematology and oncology. Apparently there has been discussions with the patient regarding the possibility of palliative/hospice care. According to the [facility] ICU staff she has declined this option at this time. (11) Anemia: QUALIFIERS: Anemia type: unspecified type Qualified Code(s): D64.9 - Anemia, unspecified PLAN: The patient remains with anemia. Her hemoglobin declined. She has subsequently received additional PRBCs. Her hemoglobin has now increased to 7.6. She will continue evaluation care by internal medicine and gastroenterology. Addt'l Comments Overall, from a cardiovascular standpoint, the patient will continue her conservative medical management based upon her noncardiac limitations with respect to her vital signs such as blood pressure, objective findings such as her anemia, etc., and have reassessment of her overall status/medical therapy, etc., as her case progresses. Comment: Time spent in the patient's overall evaluation/care/documentation: 37 minutes This note was generated using a voice recognition system and there may be incorrect words, spelling or punctuation that were not noted when reviewing the office note prior to saving. Procedure Criteria Type of Procedure Procedure Type: Elective Elective Risks - COVID COVID Risk Discussion: The surgeon/proceduralist and patient have discussed in detail the risk of exposure to and/or potential harm posed by the COVID-19 virus with having a surgery/procedure at this time versus the risk of delaying the surgery/procedure. It is not possible to know either the risk of delaying the surgery or procedure or chance of getting an infection with perfect accuracy, but a joint decision was made between the patient and the surgeon/proceduralist to proceed at this time with the scheduled surgery/procedure as indicated on the consent form.
[2022-05-24] MEDS: busPIRone 5 MG Tablet 10 MG PO ×2 (10:10→21:42)
[2022-05-24] MEDS: Amiodarone 200 MG Tablet PO (10:11)
[2022-05-24] MEDS: Magnesium Chloride 64 MG Delay Rel.Tablet 128 MG PO (10:11)
[2022-05-24] MEDS: RisperiDONE 0.5 MG Tablet PO (10:11)
[2022-05-24] MEDS: Loratadine 10 MG Tablet PO (10:11)
[2022-05-24] MEDS: Pantoprazole Sodium 40 MG Tablet PO ×2 (10:11→21:43)
[2022-05-24] MEDS: morphine SR 15 MG Tablet PO ×2 (10:11→21:45)
[2022-05-24] MEDS: Senna/Docusate Sodium 1 Tablet 2 TABLET PO ×2 (10:12→21:42)
--- NOTE | 2022-05-24 12:03 | PCM.PN.HOSP ---
Subjective Subjective Follow-up on hypotension/pneumonia/acute on chronic respiratory failure/shock: Patient was seen by me.? She is alert oriented x3.? She is hard of hearing.? She is on 3 L of oxygen which is her baseline.? She denied any dizziness or palpitations.? She has been off pressors. Objective Data Objective Data Vital Signs: Vital Signs Temp Pulse Resp BP Pulse Ox O2 Del Method O2 Flow Rate 98.2 F 103 H 19 H 106/60 93 Nasal Cannula 3 05/24/22 06:00 05/24/22 10:07 05/24/22 10:07 05/24/22 06:00 05/24/22 07:28 05/24/22 08:15 05/24/22 08:15 FiO2 3 05/23/22 15:35 Oxygen Flow Rate (L/min) [ 4 AMBULATING with Oxygen #3] Oxygen Flow Rate (L/min) [ 3 AMBULATING with Oxygen #2] Oxygen Flow Rate (L/min) [ 2 AMBULATING with Oxygen #1] Oxygen Flow Rate (L/min) [At 2 REST with Oxygen] Oxygen Flow Rate (L/min) 3 Oxygen Delivery Method Nasal Cannula Weight: 39.3 kg Body Mass Index (BMI) 20.5 Intake & Output: Intake and Output for Last 24 Hours 05/22/22 05/23/22 05/24/22 23:59 23:59 23:59 Intake Total 2075 / 2075 0 / 0 Output Total 2600 / 2600 1475 / 1575 300 / 300 Balance -525 / -525 -1475 / -1575 -300 / -300 Medical Nutrition Assessment Dietitian: Malnutrition Criteria Met Start: 05/17/22 11:27 Freq: Status: Active Protocol: Document 05/22/22 11:51 RMA (Rec: 05/22/22 11:51 RMA [id number]) Nutrition Malnutrition Evidence of Malnutrition Exists Yes Malnutrition (severe): Acute Illness/Injury Evidenced By Suboptimal Energy Intake ( Severe),Physical Changes ( Severe) Intake Problem Inadequate Oral Intake Etiology related to resp. failure Signs/Symptoms as evidenced by NPO status Status Resolved Problem Clinical Problem Chronic Disease or Condition Related Malnutrition Etiology severe, chronic malnutrition related to inadequate energy intake Signs/Symptoms as evidenced by severe muscle wasting/fat loss evident in orbital, clavicle, acromion, temporal areas per physical exam; estimated energy intake meeting <75% of estimated energy needs > 3 months Status Active Problem Recommendation Dietitian Recommendations/Changes Will continue sodium restricted w/ 1250mL fluid restriction per hospitalist; will fortify foods when possible. Will offer ensure plus high protein 120mL 4x/day w/ medpass although pt currently refusing. Pt not interested in other ONS at this time. Lab / Micro Data Result Diagrams: 05/24/22 04:45 05/24/22 04:45 Labs: Laboratory Results - last 24 hr 05/23/22 16:13: POC Glucose 201 H 05/23/22 21:32: POC Glucose 115 H 05/24/22 04:45: WBC 7.5, RBC 2.57 L, Hgb 7.6 L, Hct 24.0 L, MCV 93.4, MCH 29.6, MCHC 31.7 L, RDW Std Deviation 52.3 H, RDW Coeff of Surinder 15.4 H, Plt Count 86 L, MPV 11.9, Immature Gran % (Auto) 1.200 H, Neut % (Auto) 90.9 H, Lymph % (Auto) 2.9 L, [place] % (Auto) 4.5, Eos % (Auto) 0.5, Baso % (Auto) 0.0, Absolute Neuts (auto) 6.8, Absolute Lymphs (auto) 0.22 L, Nucleated RBC % 0.4, Differential Comment SCANNED, Platelet Estimate SLT 05/24/22 04:45: Sodium 134 L, Potassium 4.1, Chloride 99, Carbon Dioxide 31.0, Anion Gap 4 L, BUN 26 H, Creatinine 0.41 L, Estim Creat Clear Calc 33.06, Est GFR (MDRD) Af Amer 194, Est GFR (MDRD) Non-Af 160, BUN/Creatinine Ratio 63.0 H, Glucose 77, Calcium 8.5, Total Bilirubin 0.70, AST 21, ALT 76 H, Alkaline Phosphatase 192 H, Total Protein 5.0 L, Albumin 1.6 L, Globulin 3.4, Albumin/Globulin Ratio 0.5 L 05/24/22 05:44: POC Glucose 78 Micro: Microbiology 05/19/22 22:25 Urine Catheter - Bailey Urine Culture - Final Presumptive C albicans 05/19/22 23:05 Blood Culture (Wb) - Arm Left Blood Culture - Preliminary No growth in 48 hours. 05/19/22 22:35 Blood Culture (Wb) - Pic Blood Culture - Preliminary No growth in 48 hours. 05/14/22 20:05 Sputum, Tracheal Aspirate Gram Stain - Final 05/14/22 20:05 Sputum, Tracheal Aspirate Respiratory Culture - Final Mixed normal respiratory mariano. No Streptococcus pneumoniae, beta-hemolytic Streptococcus or Staphylococcus aureus isolated. 05/11/22 11:50 Blood Culture (Wb) - Right Wrist Blood Culture - Final No growth in 5 days. 05/11/22 11:30 Blood Culture (Wb) #2 - Left Wrist Blood Culture - Final No growth in 5 days. 05/11/22 00:00 Urine Catheter - Bailey Urine Culture - Final Culture exhibits no growth. 05/11/22 19:40 Sputum, Expectorated/Coughed Gram Stain - Final 05/11/22 19:40 Sputum, Expectorated/Coughed Respiratory Culture - Final 05/11/22 21:45 Urine Catheter - Bailey Legionella Antigen - Final 05/11/22 21:45 Urine Catheter - Bailey Streptococcus pneumoniae Antigen (M - Final 05/11/22 11:21 Nasal Secretion SARS-CoV-2 & FLU Antigen (Rapid) - Final Physical Exam Narrative Physical exam: General: Alert, Oriented x3, Cooperative, very frail, on 3 L of oxygen HEENT: Atraumatic Oral: Moist Mucosa Neck: Supple Lungs: Diminished to auscultation Cardiovascular: HS I+II, regular, no murmurs Abdomen: Bowel Sounds Present, Soft, Non Tender Extremities: No edema Skin: No rashes, No breakdown Neurological: Grossly intact Psych/Mental Status: Appropriate Assessment & Plan Assessment/Plan (1) Cardiomyopathy: (2) SVT (supraventricular tachycardia): (3) Acute respiratory failure with hypoxia: (4) Severe protein-calorie malnutrition: (5) Pneumonia: QUALIFIERS: Pneumonia type: due to Pneumococcus Laterality: right Lung location: middle lobe of lung Qualified Code(s): J13 - Pneumonia due to Streptococcus pneumoniae (6) Anemia: QUALIFIERS: Anemia type: unspecified type Qualified Code(s): D64.9 - Anemia, unspecified (7) Shock: PLAN: Plan 1. Acute on chronic hypoxic respiratory failure likely secondary to right upper lobe pneumonia/lung failure, COPD exacerbation Remains on home 3 L of oxygen Continue to encourage use of incentive spirometer Boiler Testing Technician following 2. Shock, likely secondary to hypovolemia/hemorrhagic, resolved, remains off pressors. Blood, urine, sputum/tracheal aspirate, cultures are negative x48 hours Continue to hold diuretics and antihypertensives 3. A. fib with RVR, heart rate is improved, continue oral amiodarone and metoprolol Cardiology following Continue to hold off on Eliquis 4. Elevated LFTs likely secondary to #2, will trend 5. Anemia secondary to acute blood loss from probable GI bleed, Hemoglobin remains 7.6 Status post 5 units of packed RBCs transfusion Will trend labs 6. Probable acute GI bleed, history of GI bleed, Continue on PPI twice daily, sucralfate, GI consulted 7.Severe protein calorie malnutrition, coping machine assembler consulted, continue supplements 8. Rest of her chronic medical conditions including small cell lung CA/CAD status post stent/hyperlipidemia/COPD/osteoporosis/chronic pain/GERD, All complicates current medical care for this patient 9. DVT PPx- SCDs Charges/Coding Visit Charges Inpatient E&M: 08270 Subs Hosp L2
[2022-05-24 12:10] LABS: Bedside Glucose 149 mg/dL (74-106)
[2022-05-24 14:05] LABS: Immature Platelet Fraction 11.2 % (1.0-7.9); Platelet Count 85 K/mm3 (150-450); RET-HE 28.7 pg (30-35)
[2022-05-24] MEDS: Insulin Lispro 100 UNIT/ML INSULN.PEN SC (16:17)
[2022-05-24 16:40] LABS: Bedside Glucose 229 mg/dL (74-106)
--- NOTE | 2022-05-24 17:14 | EX.PCM.CON.G ---
HPI Consult Data Date of Consult: 05/24/22 HPI Narrative Reason for Consultation: Anemia HPI Narrative: SAPPHIRE LOOMIS, is a 72 F with a history of underlying CAD, PCI, PAF, and previous transient diminished LV systolic function/LVEF, status post AAA repair all superimposed upon a history of underlying progressive shortness of breath/dyspnea thought secondary to pneumonia, COPD, a history of small cell lung carcinoma, and anemia who required mechanical intubation/ventilation and was currently in the ICU sedated.? I was asked to see her because of a progressing worsening anemia and history of atrial fibrillation. At this time she wants to go home and does not want any further work-up at this time. [facility] Medical History AAA (abdominal aortic aneurysm) Anemia requiring transfusions CAD (coronary artery disease) CAD (coronary artery disease) COPD exacerbation Heart attack Heart failure with reduced ejection fraction History of GI bleed Kidney stone Lung cancer Osteoporosis Paroxysmal atrial fibrillation SIADH (syndrome of inappropriate ADH production) Small cell lung cancer Tobacco abuse Home Medications atorvastatin 10 mg tablet 10 tab PO QHS CHOLESTEROL 11/13/21 [History Last Taken 05/10/22] fluticasone fur. 100 mcg-umeclid 62.5 mcg-vilant 25 mcg inhalat.powder (Trelegy Ellipta) 1 ea inhalation DAILY SHORTNESS OF BREATH 11/13/21 [History Last Taken 05/11/22] albuterol sulfate 90 mcg/actuation aerosol inhaler 2 inh inhalation Q4H PRN SOB 01/04/22 [History Last Taken 01/04/22] alendronate 70 mg tablet 70 mg PO SOLIS BONES 01/04/22 [History Last Taken 05/08/22] loratadine 10 mg tablet (Claritin) 10 mg PO DAILY ALLERGIES 01/04/22 [History Last Taken 05/10/22] magnesium oxide 400 mg (241.3 mg magnesium) tablet 400 mg PO DAILY SUPPLEMENT 01/04/22 [History Last Taken 05/10/22] pantoprazole 40 mg tablet,delayed release 40 mg PO DAILY GERD 01/04/22 [History Last Taken 05/10/22] potassium chloride 20 mEq tablet,extended release 20 meq PO BID SUPPLEMENT 01/04/22 [History Last Taken 05/10/22] morphine 15 mg tablet,extended release (MS Contin) 15 mg PO BID PAIN 1 day #2 tabs 01/13/22 [Rx Last Taken 05/10/22] acetaminophen 325 mg tablet (Tylenol) 650 mg PO Q6H PRN PRN Pain 05/11/22 [History Last Taken 05/10/22] apixaban 5 mg tablet (Eliquis) 5 mg PO BID BLOOD THINNER 05/11/22 [History Last Taken 05/10/22] furosemide 20 mg tablet 20 mg PO DAILY FLUID 05/11/22 [History Last Taken 05/10/22] ipratropium 0.5 mg-albuterol 3 mg (2.5 mg base)/3 mL nebulization soln 3 ml inhalation Q6H PRN Shortness Of Breath 05/11/22 [History Last Taken Unknown] nicotine 21 mg/24 hr daily transdermal patch 1 patch transdermal Q24H 05/11/22 [History Last Taken 05/10/22] oxycodone-acetaminophen 10 mg-325 mg tablet (Percocet) 1 tab PO TID PAIN 05/11/22 [History Last Taken 05/10/22] sodium chloride 1 gram tablet 1,000 mg PO TID SUPPLEMENT 05/11/22 [History Last Taken 05/10/22] Allergy/AdvReac Type Severity Reaction Status Date / Time latex Allergy Rash Verified 05/11/22 10:21 Penicillins Allergy Anaphylaxis Verified 05/11/22 10:21 succinylcholine Allergy Anaphylaxis Verified 05/11/22 10:21 aspirin [ASA] AdvReac Upset Verified 05/11/22 17:07 Stomach Family History Other CAD (coronary artery disease) Heart disease Hypertension Surgical History S/P AAA repair S/P PTCA (percutaneous transluminal coronary angioplasty) Social History Smoking Status: Former smoker alcohol intake: never substance use type: does not use ROS ROS Narrative Patient denies any melena nor hematochezia. No hematemesis or hemoptysis. No easy bruising. Does have chronic swelling of the left lower extremity with her recent femoropopliteal bypass. This edema has improved over the past few weeks. All review of systems were negative except as mentioned above in the history of present illness and the other review of systems. Medical Records Data Medical Nutrition Assessment Dietitian: Malnutrition Criteria Met Start: 05/17/22 11:27 Freq: Status: Active Protocol: Document 05/22/22 11:51 RMA (Rec: 05/22/22 11:51 RMA [id number]) Nutrition Malnutrition Evidence of Malnutrition Exists Yes Malnutrition (severe): Acute Illness/Injury Evidenced By Suboptimal Energy Intake ( Severe),Physical Changes ( Severe) Intake Problem Inadequate Oral Intake Etiology related to resp. failure Signs/Symptoms as evidenced by NPO status Status Resolved Problem Clinical Problem Chronic Disease or Condition Related Malnutrition Etiology severe, chronic malnutrition related to inadequate energy intake Signs/Symptoms as evidenced by severe muscle wasting/fat loss evident in orbital, clavicle, acromion, temporal areas per physical exam; estimated energy intake meeting <75% of estimated energy needs > 3 months Status Active Problem Recommendation Dietitian Recommendations/Changes Will continue sodium restricted w/ 1250mL fluid restriction per hospitalist; will fortify foods when possible. Will offer ensure plus high protein 120mL 4x/day w/ medpass although pt currently refusing. Pt not interested in other ONS at this time. Lab / Micro Data Result Diagrams: 05/24/22 04:45 05/24/22 04:45 Labs: Laboratory Results - last 24 hr 05/23/22 21:32: POC Glucose 115 H 05/24/22 04:45: WBC 7.5, RBC 2.57 L, Hgb 7.6 L, Hct 24.0 L, MCV 93.4, MCH 29.6, MCHC 31.7 L, RDW Std Deviation 52.3 H, RDW Coeff of Surinder 15.4 H, Plt Count 86 L, MPV 11.9, Immature Gran % (Auto) 1.200 H, Neut % (Auto) 90.9 H, Lymph % (Auto) 2.9 L, [place] % (Auto) 4.5, Eos % (Auto) 0.5, Baso % (Auto) 0.0, Absolute Neuts (auto) 6.8, Absolute Lymphs (auto) 0.22 L, Nucleated RBC % 0.4, Differential Comment SCANNED, Platelet Estimate SLT 05/24/22 04:45: Sodium 134 L, Potassium 4.1, Chloride 99, Carbon Dioxide 31.0, Anion Gap 4 L, BUN 26 H, Creatinine 0.41 L, Estim Creat Clear Calc 33.06, Est GFR (MDRD) Af Amer 194, Est GFR (MDRD) Non-Af 160, BUN/Creatinine Ratio 63.0 H, Glucose 77, Calcium 8.5, Total Bilirubin 0.70, AST 21, ALT 76 H, Alkaline Phosphatase 192 H, Total Protein 5.0 L, Albumin 1.6 L, Globulin 3.4, Albumin/Globulin Ratio 0.5 L 05/24/22 04:45: Immature Plt Fraction 11.2 H, Retic Count 0.90, Immature Retic Fraction 14.80, Retic Hgb Equivalent 28.7 L 05/24/22 05:44: POC Glucose 78 05/24/22 11:45: POC Glucose 149 H 05/24/22 16:16: POC Glucose 229 H Assessment & Plan Assessment/Plan (1) Anemia: QUALIFIERS: Anemia type: unspecified type Qualified Code(s): D64.9 - Anemia, unspecified PLAN: Iron deficiency anemia in the setting of anemia chronic disease with thrombocytopenia. Differential diagnosis does include bone marrow failure, malignancy of the GI tract, angiodysplasia, peptic ulcer disease, celiac disease. She should undergo endoscopic evaluation prior to her undergoing anticoagulation. She has received multiple units of blood. I will leave it up to the patient whether she wants to pursue an endoscopic evaluation. It should be done prior to her leaving the hospital. Charges/Coding Visit Charges Inpatient E&M: 72041 Init Hosp L2
--- NOTE | 2022-05-24 17:19 | CASEMGMT ---
SW received a message from [facility] and they cannot accept patient. SW called [facility] and asked if they have a rehab unit and a swing bed unit. They only have a rehab unit where you must be able to do 3 hours of therapy. SW will check with family on other options. Mable Herman [employer]
[2022-05-24] MEDS: Atorvastatin Calcium 10 MG Tablet PO (21:42)
[2022-05-24] MEDS: MELATONIN 3 MG TABLET PO (21:42)
[2022-05-24] MEDS: RisperiDONE 1 MG Tablet PO (21:43)
[2022-05-24 22:10] LABS: Bedside Glucose 135 mg/dL (74-106)
[2022-05-25] VITALS (19 sets, daily range): BP systolic 79–128; BP diastolic 45–63; PULSE 60–107; RESP 13–20; TEMP 36.2–36.9; O2SAT 92–100
--- NOTE | 2022-05-25 | EGD_PTH ---
PATIENT: SAPPHIRE LOOMIS LOC: [facility] U#:[id number] AGE/SX: 72/F ROOM: [facility] RE05/11/[address]: Dr. Tobi Padilla MD : 1950 BED: 1 DIS: 05/31/2022 SPEC #: [id number] RECD: 05/25/22 12:42 STATUS: MAT REQ #: [id number] BONNIE: 05/25/22 00:[address]: Cheng Horton DEPT: SURGICAL PATHOLOGY RECD BY: Balbina Smith ENTERED: 05/25/22 13:32 SP TYPE: EGD BIOPSY OTHR DR: MD Dr. Jeramy Herbert MD Dr. Derek Brown, DO Dr. Mirian Healy Dr., MD Dr. Jamir Klein Dr., MD Dr. Paul Moodispaw, MD Dr. Tanmay Panchabhai, MD Christina Muller, PEST CONTROL WORKER HELPER-C Crissy Lema NP-C Tissues: COLON BIOPSY Procedures: Surgery Specimen Level IV HEADER OPERATION: EGD (MAC) with electrocautery and biopsies PRE-OP DIAGNOSIS: Anemia TISSUE SUBMITTED: Lesser curvature ulcer biopsy MICROSCOPIC DIAGNOSIS Lesser curvature ulcer, biopsy: Fragments of gastric mucosa with focal erosion, acute and chronic inflammation and reactive epithelial changes. See comment. Dale 05/26/2022 COMMENT The results of immunohistochemistry for Helicobacter pylori will be reported separately ([id number]). MICROSCOPIC DESCRIPTION Slides are reviewed. GROSS DESCRIPTION Received in fixative is one container labeled with the patient's name and designated lesser curvature ulcer biopsy. The specimen consists of multiple irregular fragments of light anaya soft tissue that in aggregate measure 1.3 x 0.4 x 0.1 cm. The specimen is totally submitted in one cassette. / REGGIE:lakia 05/25/2022 TC:2 [facility]: [id number]
--- NOTE | 2022-05-25 | IMM_PTH ---
PATIENT: SAPPHIRE LOOMIS LOC: [facility] U#:[id number] AGE/SX: 72/F ROOM: [facility] RE05/11/[address]: Dr. Tobi Padilla MD : 1950 BED: 1 DIS: 05/31/2022 SPEC #: [id number] RECD: 05/26/22 14:48 STATUS: MAT REQ #: [id number] BONNIE: 05/25/22 00:[address]: Cheng Horton DEPT: IMMUNOHISTOCHEMISTRY RECD BY: Janet Reed ENTERED: 05/26/22 14:49 SP TYPE: IMMUNO OTHR DR: MD Dr. Jeramy Herbert MD Dr. Derek Brown, DO Dr. Jake Figueroa, DO Dr. Mirian Hernandez, DO MD Dr. Jamir Means MD Dr. Paul Moodispaw, MD Dr. Tanmay Panchabhai, MD Christina Muller, RADIO ELECTRICIAN-C Crissy Lema NP-C Tissues: COLON BIOPSY Procedures: H Pylori (initial) PHYSICIAN & [place] [id number] SPECIMEN INFORMATION: Tissue Source: Lesser curvature ulcer biopsy Clinical Info: Priya Specimen Number: [id number] CPT code: 25183 METHODOLOGY: Deparaffinized sections of prefer/formalin-fixed tissue or PAP/DQ stained slides are incubated with monoclonal/polyclonal antibodies/oligonucleotide probes. Localization is made via biotin free immunoperoxidase method. Appropriate controls are performed and reacted as expected. Results on target cell population are indicated in the following table: RESULTS: ANTIBODY / CLONE RESULT H Pylori (polyclonal) negative These tests were developed and their performance characteristics determined by [facility]. They may not have been cleared or approved by the [place]. Food and Drug Administration. The FDA has determined that such clearance or approval is not necessary. The above immunohistochemical/dualISH markers are ordered and reviewed by the Pathologist. INTERPRETATION: Lesser curvature ulcer, biopsy: Negative for Helicobacter pylori organisms. REGGIE:lakia 05/27/2022
[2022-05-25] MEDS: Menthol/Lanolin/Calamine/Znox 113 GM Tube 1 APPLIC TOPICAL ×3 (06:30→21:50)
[2022-05-25] MEDS: 0.9% Saline Lock 10 ML Syringe IV (06:31)
[2022-05-25 06:38] LABS: Absolute Lymphocyte Count 0.21 X10^3/uL (0.83-4.51); Absolute Neutrophil Count 7.1 X10^3/uL (2.0-7.7); Eosinophil# 0.06 X10^3/uL; Eosinophils% 0.8 % (0-5); Hematocrit 23.7 % (37-47); Hemoglobin 7.4 g/dL (12.0-15.0); Lymphocyte # 0.21 X10^3/ul (0.83-4.51); Lymphocyte % 2.7 % (19-41); Mean Corp Hgb Conc 31.2 g/dL (32-36); Mean Corpuscular Hgb 29.6 pg (27.0-32.0); Mean Corpuscular Volume 94.8 fL (81-99); Mean Platelet Vol. 11.3 fl (6.2-12.0); Monocyte# 0.39 X10^3/uL; NRBC Flagged by Analyzer 0 % (0-5); Neutrophil # 7.05 X10^3/uL (2.7-7.7); Neutrophil % 90.7 % (47-70); POSITIVE COUNT YES; POSITIVE DIFFERENTIAL YES; Platelet Count 82 K/mm3 (150-450); RBC Distribution Width CV 15.2 % (11.6-14.6); RBC Distribution Width SD 51.9 fl (35.1-43.9); White Blood Count 7.8 K/mm3 (4.4-11.0)
[2022-05-25 06:54] LABS: ALB/GLOB Ratio 0.5 RATIO (0.9-2.4); AST(SGOT) 15 U/L (15-37); Alanine Aminotransfer ALT/SGPT 55 U/L (13-56); Albumin, Serum 1.6 g/dL (3.2-5.0); Alkaline Phosphatase 170 U/L (45-117); Anion Gap 2 (5-15); BUN 22 mg/dL (7-18); Calcium,Total 8.5 mg/dL (8.5-10.1); Chloride 100 mmol/L (98-107); Creatinine, Serum 0.35 mg/dL (0.55-1.02); EST Glomerular Filtration Rate 195 mL/min (>60); Est Glom Filt Rate - Afr Amer 235 mL/min (>60); Estimated Creatinine Clearance 31.24 ml/min; Globulin 3.4 g/dL (2.2-4.2); Glucose 81 mg/dL (74-106); Sodium Level 134 mmol/L (136-145)
[2022-05-25 07:00] LABS: Differential Indicated SCAN CRITERIA MET
[2022-05-25] MEDS: Ipratropium/Albuterol Sulfate 3 ML AMPUL.NEB INHALATION ×3 (07:02→19:45)
[2022-05-25 07:08] LABS: Differential Comment SCANNED; Platelet Estimate MOD DEC (ADEQ)
--- NOTE | 2022-05-25 07:30 | PN.CC_ITS ---
Assessment & Plan Assessment/Plan (1) Acute respiratory failure with hypoxia: (2) Pneumonia: QUALIFIERS: Pneumonia type: due to Pneumococcus Laterality: right Lung location: middle lobe of lung Qualified Code(s): J13 - Pneumonia due to Streptococcus pneumoniae (3) History of lung cancer: (4) Severe protein-calorie malnutrition: PLAN: Plan RECOMMENDATIONS: 1. Continue to wean supplemental oxygen as tolerated. Walking oximetry prior to discharge 2. Completed Levaquin. Monitor clinically. 3. Hold on blood transfusion unless patient becomes hypotensive 4. Appreciate cardiology input. 5. Wean steroids to 30 mg. Wean off over the next 8 to 12 days. No other changes in respiratory plan 6. Continue scheduled BuSpar twice daily to address underlying anxiety. 7. Continue to monitor H&H daily. Transfuse if hemoglobin drops below 7 g/dL. Transfuse 1 unit of packed red blood cells 8. Hold anticoagulation until GI work-up can be performed. Await GI work- up. Continue PPI therapy. 9. Likely okay to be discharged from a pulmonary perspective, but does have GI issues that may need to be addressed. IMPRESSIONS: 1.??Acute hypoxic respiratory failure in the setting of COPD and history of small cell lung cancer The patient presented with an acute COPD exacerbation which appears to be secondary to a right upper lobe infiltrate. The patient has slowly improved from a respiratory perspective. She remains on appropriate antimicrobials, scheduled bronchodilators and steroids. Although the patient was able to be extubated on 05/14, she decompensated from a respiratory perspective approximately 12 hours later and had to be reintubated. Clinical concern that the patient's underlying anemia and anxiety may have contributed to her decompensation. With further volume optimization and stabilization of her anemia status, the patient was able to be extubated once again on May 17. She had been doing well from a respiratory perspective until May 19, when she fell and developed worsening hypoxia and hypotension. Patient has been doing well from a respiratory standpoint. Appears to be at her baseline. We will monitor after EGD for complications. Steroids will be weaned today. Okay to discharge from a pulmonary perspective with steroid taper 2. Undifferentiated shock Resolved. The patient developed hypotension earlier this week, ultimately requiring the initiation of vasopressor support. The exact etiology for her initial hypotension is not entirely clear. 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 The patient will be continued on appropriate PPI therapy. There are no overt signs of blood loss. Patient likely requires a GI work-up prior to reinitiation of anticoagulation. EGD probable today 4.??Cardiomyopathy/paroxysmal A. fib/SVT Continue medical management per cardiology recommendations. Back on baseline medications except for anticoagulation. 5.??Chronic pain syndrome/osteoporosis/GERD with history of GI bleed/CAD/debility Complicates care, management, recovery and prognosis.? Continue supportive measures as noted above. Physical therapy to work with the patient. Hold any transfusion for now unless patient becomes hypotensive. Subjective Subjective Patient did well overnight. No respiratory complaints at this time. Objective Data Objective Data Patient reportedly to have an EGD later today. Vital Signs: Vital Signs Temp Pulse Resp BP Pulse Ox O2 Del Method O2 Flow Rate 36.6 C 61 13 98/54 L 100 Nasal Cannula 3 05/25/22 04:00 05/25/22 04:00 05/25/22 04:00 05/25/22 04:00 05/25/22 04:00 05/25/22 06:00 05/25/22 04:00 FiO2 3 05/23/22 15:35 Oxygen Flow Rate (L/min) [ 4 AMBULATING with Oxygen #3] Oxygen Flow Rate (L/min) [ 3 AMBULATING with Oxygen #2] Oxygen Flow Rate (L/min) [ 2 AMBULATING with Oxygen #1] Oxygen Flow Rate (L/min) [At 2 REST with Oxygen] Oxygen Flow Rate (L/min) 3 Oxygen Delivery Method Nasal Cannula Weight: 39.5 kg Body Mass Index (BMI) 20.5 Intake & Output: Intake and Output for Last 24 Hours 05/23/22 05/24/22 05/25/22 23:59 23:59 23:59 Intake Total 0 / 0 600 / 600 Output Total 1475 / 1575 1750 / 1750 Balance -1475 / -1575 -1150 / -1150 - Medical Nutrition Assessment Dietitian: Malnutrition Criteria Met Start: 05/17/22 11:27 Freq: Status: Active Protocol: Document 05/22/22 11:51 RMA (Rec: 05/22/22 11:51 RMA [id number]) Nutrition Malnutrition Evidence of Malnutrition Exists Yes Malnutrition (severe): Acute Illness/Injury Evidenced By Suboptimal Energy Intake ( Severe),Physical Changes ( Severe) Intake Problem Inadequate Oral Intake Etiology related to resp. failure Signs/Symptoms as evidenced by NPO status Status Resolved Problem Clinical Problem Chronic Disease or Condition Related Malnutrition Etiology severe, chronic malnutrition related to inadequate energy intake Signs/Symptoms as evidenced by severe muscle wasting/fat loss evident in orbital, clavicle, acromion, temporal areas per physical exam; estimated energy intake meeting <75% of estimated energy needs > 3 months Status Active Problem Recommendation Dietitian Recommendations/Changes Will continue sodium restricted w/ 1250mL fluid restriction per hospitalist; will fortify foods when possible. Will offer ensure plus high protein 120mL 4x/day w/ medpass although pt currently refusing. Pt not interested in other ONS at this time. Lab / Micro Data Attestation: I reviewed the patient's lab results. Result Diagrams: 05/25/22 06:30 05/25/22 06:30 Labs: Laboratory Results - last 24 hr 05/24/22 04:45: Immature Plt Fraction 11.2 H, Retic Count 0.90, Immature Retic Fraction 14.80, Retic Hgb Equivalent 28.7 L 05/24/22 11:45: POC Glucose 149 H 05/24/22 16:16: POC Glucose 229 H 05/24/22 21:49: POC Glucose 135 H 05/25/22 06:30: WBC 7.8, RBC 2.50 L, Hgb 7.4 L, Hct 23.7 L, MCV 94.8, MCH 29.6, MCHC 31.2 L, RDW Std Deviation 51.9 H, RDW Coeff of Surinder 15.2 H, Plt Count 82 L, MPV 11.3, Immature Gran % (Auto) 0.800, Neut % (Auto) 90.7 H, Lymph % (Auto) 2.7 L, [place] % (Auto) 5.0, Eos % (Auto) 0.8, Baso % (Auto) 0.0, Absolute Neuts (auto) 7.1, Absolute Lymphs (auto) 0.21 L, Nucleated RBC % 0, Differential Comment SCANNED, Platelet Estimate MOD DEC 05/25/22 06:30: Sodium 134 L, Potassium 4.0, Chloride 100, Carbon Dioxide 32.0, Anion Gap 2 L, BUN 22 H, Creatinine 0.35 L, Estim Creat Clear Calc 31.24, Est GFR (MDRD) Af Amer 235, Est GFR (MDRD) Non-Af 195, BUN/Creatinine Ratio 63.0 H, Glucose 81, Calcium 8.5, Total Bilirubin 0.60, AST 15, ALT 55, Alkaline Phosphatase 170 H, Total Protein 5.0 L, Albumin 1.6 L, Globulin 3.4, Albumin/Globulin Ratio 0.5 L Micro: Microbiology 05/19/22 23:05 Blood Culture (Wb) - Arm Left Blood Culture - Final No growth in 5 days. 05/19/22 22:35 Blood Culture (Wb) - Pic Blood Culture - Final No growth in 5 days. 05/19/22 22:25 Urine Catheter - Bailey Urine Culture - Final Presumptive C albicans 05/14/22 20:05 Sputum, Tracheal Aspirate Gram Stain - Final 05/14/22 20:05 Sputum, Tracheal Aspirate Respiratory Culture - Final Mixed normal respiratory mariano. No Streptococcus pneumoniae, beta-hemolytic Streptococcus or Staphylococcus aureus isolated. 05/11/22 11:50 Blood Culture (Wb) - Right Wrist Blood Culture - Final No growth in 5 days. 05/11/22 11:30 Blood Culture (Wb) #2 - Left Wrist Blood Culture - Final No growth in 5 days. 05/11/22 00:00 Urine Catheter - Bailey Urine Culture - Final Culture exhibits no growth. 05/11/22 19:40 Sputum, Expectorated/Coughed Gram Stain - Final 05/11/22 19:40 Sputum, Expectorated/Coughed Respiratory Culture - Final 05/11/22 21:45 Urine Catheter - Bailey Legionella Antigen - Final 05/11/22 21:45 Urine Catheter - Bailey Streptococcus pneumoniae Antigen (M - Final 05/11/22 11:21 Nasal Secretion SARS-CoV-2 & FLU Antigen (Rapid) - Final Physical Exam Const alert, oriented x3 and no apparent distress Constitutional Narrative: Appears older than stated age General Appearance: frail HEENT head/scalp atraumatic, moist oral mucous membranes and oropharynx normal General Ear: hearing grossly impaired left Eyes PERRL, EOMs intact bilaterally and no scleral icterus Neck full ROM and supple Resp normal respiratory effort, no retractions, no use of accessory muscles and clear to auscultation bilaterally Resp Narrative: Severely diminished diffusely Auscultation: Negative for rales, rhonchi or wheezes Cardio regular rate, regular rhythm, S1 normal heart sound, S2 normal heart sound, no murmurs, no rub, no gallops and no clicks GI normal to inspection, nondistended, normoactive bowel sounds, soft to palpation and non-tender GI Narrative: Scaphoid abdomen Extremity no clubbing, cyanosis or edema Extremity Narrative: 2+ pedal pulses Neuro oriented x3, moves all extremities and no focal motor deficits Neuro Narrative: Severe generalized weakness Speech: speech normal Psych cooperative and affect normal Charges/Coding Visit Charges Inpatient E&M: 63607 Subs Hosp L2
--- NOTE | 2022-05-25 09:30 | PCM.PN.HOSP ---
Subjective Subjective Follow-up on hypotension/pneumonia/acute on chronic respiratory failure/shock: Patient was seen and examined. She went in and out of A. fib last night. Currently in normal sinus rhythm. Patient is going for EGD today.?She denied any dizziness or palpitations.?She remains off pressors. Objective Data Objective Data Vital Signs: Vital Signs Temp Pulse Resp BP Pulse Ox O2 Del Method O2 Flow Rate 97.9 F 63 16 98/54 L 98 Nasal Cannula 3 05/25/22 04:00 05/25/22 07:02 05/25/22 07:02 05/25/22 04:00 05/25/22 07:02 05/25/22 07:02 05/25/22 07:02 FiO2 3 05/23/22 15:35 Oxygen Flow Rate (L/min) [ 4 AMBULATING with Oxygen #3] Oxygen Flow Rate (L/min) [ 3 AMBULATING with Oxygen #2] Oxygen Flow Rate (L/min) [ 2 AMBULATING with Oxygen #1] Oxygen Flow Rate (L/min) [At 2 REST with Oxygen] Oxygen Flow Rate (L/min) 3 Oxygen Delivery Method Nasal Cannula Weight: 39.5 kg Body Mass Index (BMI) 20.5 Intake & Output: Intake and Output for Last 24 Hours 05/23/22 05/24/22 05/25/22 23:59 23:59 23:59 Intake Total 0 / 0 600 / 600 Output Total 1475 / 1575 1750 / 1750 Balance -1475 / -1575 -1150 / -1150 -20 / -20 Medical Nutrition Assessment Dietitian: Malnutrition Criteria Met Start: 05/17/22 11:27 Freq: Status: Active Protocol: Document 05/22/22 11:51 RMA (Rec: 05/22/22 11:51 RMA [id number]) Nutrition Malnutrition Evidence of Malnutrition Exists Yes Malnutrition (severe): Acute Illness/Injury Evidenced By Suboptimal Energy Intake ( Severe),Physical Changes ( Severe) Intake Problem Inadequate Oral Intake Etiology related to resp. failure Signs/Symptoms as evidenced by NPO status Status Resolved Problem Clinical Problem Chronic Disease or Condition Related Malnutrition Etiology severe, chronic malnutrition related to inadequate energy intake Signs/Symptoms as evidenced by severe muscle wasting/fat loss evident in orbital, clavicle, acromion, temporal areas per physical exam; estimated energy intake meeting <75% of estimated energy needs > 3 months Status Active Problem Recommendation Dietitian Recommendations/Changes Will continue sodium restricted w/ 1250mL fluid restriction per hospitalist; will fortify foods when possible. Will offer ensure plus high protein 120mL 4x/day w/ medpass although pt currently refusing. Pt not interested in other ONS at this time. Lab / Micro Data Result Diagrams: 05/25/22 06:30 05/25/22 06:30 Labs: Laboratory Results - last 24 hr 05/24/22 04:45: Immature Plt Fraction 11.2 H, Retic Count 0.90, Immature Retic Fraction 14.80, Retic Hgb Equivalent 28.7 L 05/24/22 11:45: POC Glucose 149 H 05/24/22 16:16: POC Glucose 229 H 05/24/22 21:49: POC Glucose 135 H 05/25/22 06:30: WBC 7.8, RBC 2.50 L, Hgb 7.4 L, Hct 23.7 L, MCV 94.8, MCH 29.6, MCHC 31.2 L, RDW Std Deviation 51.9 H, RDW Coeff of Surinder 15.2 H, Plt Count 82 L, MPV 11.3, Immature Gran % (Auto) 0.800, Neut % (Auto) 90.7 H, Lymph % (Auto) 2.7 L, [place] % (Auto) 5.0, Eos % (Auto) 0.8, Baso % (Auto) 0.0, Absolute Neuts (auto) 7.1, Absolute Lymphs (auto) 0.21 L, Nucleated RBC % 0, Differential Comment SCANNED, Platelet Estimate MOD DEC 05/25/22 06:30: Sodium 134 L, Potassium 4.0, Chloride 100, Carbon Dioxide 32.0, Anion Gap 2 L, BUN 22 H, Creatinine 0.35 L, Estim Creat Clear Calc 31.24, Est GFR (MDRD) Af Amer 235, Est GFR (MDRD) Non-Af 195, BUN/Creatinine Ratio 63.0 H, Glucose 81, Calcium 8.5, Total Bilirubin 0.60, AST 15, ALT 55, Alkaline Phosphatase 170 H, Total Protein 5.0 L, Albumin 1.6 L, Globulin 3.4, Albumin/Globulin Ratio 0.5 L Micro: Microbiology 05/19/22 23:05 Blood Culture (Wb) - Arm Left Blood Culture - Final No growth in 5 days. 05/19/22 22:35 Blood Culture (Wb) - Pic Blood Culture - Final No growth in 5 days. 05/19/22 22:25 Urine Catheter - Bailey Urine Culture - Final Presumptive C albicans 05/14/22 20:05 Sputum, Tracheal Aspirate Gram Stain - Final 05/14/22 20:05 Sputum, Tracheal Aspirate Respiratory Culture - Final Mixed normal respiratory mariano. No Streptococcus pneumoniae, beta-hemolytic Streptococcus or Staphylococcus aureus isolated. 05/11/22 11:50 Blood Culture (Wb) - Right Wrist Blood Culture - Final No growth in 5 days. 05/11/22 11:30 Blood Culture (Wb) #2 - Left Wrist Blood Culture - Final No growth in 5 days. 05/11/22 00:00 Urine Catheter - Bailey Urine Culture - Final Culture exhibits no growth. 05/11/22 19:40 Sputum, Expectorated/Coughed Gram Stain - Final 05/11/22 19:40 Sputum, Expectorated/Coughed Respiratory Culture - Final 05/11/22 21:45 Urine Catheter - Bailey Legionella Antigen - Final 05/11/22 21:45 Urine Catheter - Bailey Streptococcus pneumoniae Antigen (M - Final 05/11/22 11:21 Nasal Secretion SARS-CoV-2 & FLU Antigen (Rapid) - Final Physical Exam Narrative Physical exam: General: Alert, Oriented x3, Cooperative, very frail, on 3 L of oxygen HEENT: Atraumatic Oral: Moist Mucosa Neck: Supple Lungs: Diminished to auscultation Cardiovascular: HS I+II, regular, no murmurs Abdomen: Bowel Sounds Present, Soft, Non Tender Extremities: No edema Skin: No rashes, No breakdown Neurological: Grossly intact Psych/Mental Status: Appropriate Assessment & Plan Assessment/Plan (1) Cardiomyopathy: (2) SVT (supraventricular tachycardia): (3) Acute respiratory failure with hypoxia: (4) Severe protein-calorie malnutrition: (5) Pneumonia: QUALIFIERS: Pneumonia type: due to Pneumococcus Laterality: right Lung location: middle lobe of lung Qualified Code(s): J13 - Pneumonia due to Streptococcus pneumoniae (6) Anemia: QUALIFIERS: Anemia type: unspecified type Qualified Code(s): D64.9 - Anemia, unspecified (7) Shock: PLAN: Plan 1. Acute on chronic hypoxic respiratory failure likely secondary to right upper lobe pneumonia/lung failure, COPD exacerbation Remains on home 3 L of oxygen Continue to encourage use of incentive spirometer [employer] Machinery Sales Representative following 2. Shock, likely secondary to hypovolemia/hemorrhagic, resolved, . Blood, urine, sputum/tracheal aspirate, cultures are negative x48 hours Continue to hold diuretics and antihypertensives 3. A. fib with RVR, heart rate is improved, continue oral amiodarone and metoprolol Continue to hold off on Eliquis Cardiology following 4. Elevated LFTs likely secondary to #2, will trend 5. Anemia secondary to acute blood loss from probable GI bleed, Hemoglobin is 7.4, status post 5 units of packed RBCs transfusion Will trend labs 6. Probable acute GI bleed, history of GI bleed, GI consulted, patient is going for EGD today Continue on PPI twice daily, sucralfate 7.Severe protein calorie malnutrition, preventive maintenance coordinator consulted, continue supplements 8. Rest of her chronic medical conditions including small cell lung CA/CAD status post stent/hyperlipidemia/COPD/osteoporosis/chronic pain/GERD, All complicates current medical care for this patient 9. DVT PPx- SCDs Charges/Coding Visit Charges Inpatient E&M: 17281 Subs Hosp L2
[2022-05-25] MEDS: Ondansetron 4 MG/2 ML Vial IV (09:31)
[2022-05-25 09:50] LABS: Bedside Glucose 72 mg/dL (74-106)
[2022-05-25] MEDS: Lactated Ringers 1,000 ML 15 ML IV (11:02)
--- NOTE | 2022-05-25 12:39 | OP.CCLET_ITS ---
05/25/2022 Crissy Lema Re : Upper GI endoscopy procedure for Helena Lua Dear Torey This procedure was performed on Wednesday, May 25, 2022. My impressions and recommendations are as follows: Impressions : - Normal esophagus. - Medium-sized hiatal hernia. - Oozing gastric ulcer with a visible vessel. Injected. Treated with a heater probe. Biopsied. - Three bleeding angiodysplastic lesions in the stomach. Treated with a heater probe. - Normal first portion of the duodenum. Recommendations : - Return patient to [facility] for [facility] care. - Use Protonix (pantoprazole) 40 mg PO BID for 8 weeks. - Continue present medications. My findings are described in the full procedure note, which is enclosed. If I can be of further assistance, please feel free to contact me at . Sincerely, Cheng Horton, 05/25/2022 12:38:55 PM This report has been signed electronically.
--- NOTE | 2022-05-25 12:39 | OP.EGD_ITS ---
Patient Name: Helena Lua Procedure Date: 05/25/2022 12:12 PM Date of : 1950 Age: 72 Procedure: Upper GI endoscopy Indications: Iron deficiency anemia due to suspected upper gastrointestinal bleeding Providers: Cheng Horton DO Medicines: Monitored Anesthesia Care Patient Profile: This is a 72 year old female. Refer to note in patient chart for documentation of history and physical. Patient has symptoms of acute epigastric abdominal pain. Complications: No immediate complications. Procedure: Pre-Anesthesia Assessment: - Prior to the procedure, a History and Physical was performed, and patient medications and allergies were reviewed. The risks and benefits of the procedure and the sedation options and risks were discussed with the patient. All questions were answered and informed consent was obtained. Patient identification and proposed procedure were verified by the physician. Mental Status Examination: normal. Prophylactic Antibiotics: The patient does not require prophylactic antibiotics. Prior Anticoagulants: The patient has taken no previous anticoagulant or antiplatelet agents. After reviewing the risks and benefits, the patient was deemed in satisfactory condition to undergo the procedure. The anesthesia plan was to use monitored anesthesia care (MAC). Immediately prior to administration of medications, the patient was re-assessed for adequacy to receive sedatives. The heart rate, respiratory rate, oxygen saturations, blood pressure, adequacy of pulmonary ventilation, and response to care were monitored throughout the procedure. The physical status of the patient was re-assessed after the procedure. After obtaining informed consent, the endoscope was passed under direct vision. Throughout the procedure, the patient's blood pressure, pulse, and oxygen saturations were monitored continuously. The gastroscope was introduced through the mouth, and advanced to the second part of duodenum. The upper GI endoscopy was accomplished without difficulty. The patient tolerated the procedure well. Scope In: 12:21:49 PM Scope Out: 12:30:47 PM Total Procedure Duration Time 0 hours 8 minutes 58 seconds Findings: The examined esophagus was normal. A medium-sized hiatal hernia was present. One oozing cratered gastric ulcer with a visible vessel was found on the lesser curvature of the stomach. The lesion was 10 mm in largest dimension. Area was successfully injected with 5 mL of a 1:10,000 solution of epinephrine for hemostasis. Coagulation for hemostasis using heater probe was successful. Biopsies were taken with a cold forceps for histology. Verification of patient identification for the specimen was done. Estimated blood loss was minimal. Three 5 mm bleeding angiodysplastic lesions were found in the gastric body and on the greater curvature of the stomach. Coagulation for hemostasis using heater probe was successful. Estimated blood loss was minimal. The first portion of the duodenum was normal. Impression: - Normal esophagus. - Medium-sized hiatal hernia. - Oozing gastric ulcer with a visible vessel. Injected. Treated with a heater probe. Biopsied. - Three bleeding angiodysplastic lesions in the stomach. Treated with a heater probe. - Normal first portion of the duodenum. Recommendation: - Return patient to [facility] for ongoing care. - Use Protonix (pantoprazole) 40 mg PO BID for 8 weeks. - Continue present medications. Procedure Code(s): --- Professional --- 49216, 59, Esophagogastroduodenoscopy, flexible, transoral; with control of bleeding, any method 69405, 51, Esophagogastroduodenoscopy, flexible, transoral; with biopsy, single or multiple CPT copyright 2017 [employer]. All rights reserved. The codes documented in this report are preliminary and upon toggle press folder and feeder review may be revised to meet current compliance requirements. Cheng Horton DO 05/25/2022 12:38:55 PM This report has been signed electronically. Number of Addenda: 0 Note Initiated On: 05/25/2022 12:12 PM
[2022-05-25] MEDS: Sucralfate 1 GM Tablet PO ×2 (13:41→17:37)
[2022-05-25] MEDS: Sodium Chloride 1 GM Tablet PO ×2 (13:42→21:52)
[2022-05-25] MEDS: morphine SR 15 MG Tablet PO ×2 (13:42→21:50)
[2022-05-25] MEDS: Amiodarone 200 MG Tablet PO (13:42)
[2022-05-25] MEDS: Senna/Docusate Sodium 1 Tablet 2 TABLET PO ×2 (13:43→21:52)
[2022-05-25] MEDS: predniSONE 20 MG Tablet 30 MG PO (13:43)
[2022-05-25] MEDS: busPIRone 5 MG Tablet 10 MG PO ×2 (13:43→21:50)
[2022-05-25] MEDS: Magnesium Chloride 64 MG Delay Rel.Tablet 128 MG PO (13:44)
[2022-05-25] MEDS: Loratadine 10 MG Tablet PO (13:44)
[2022-05-25] MEDS: RisperiDONE 0.5 MG Tablet PO (13:45)
[2022-05-25] MEDS: Pantoprazole Sodium 40 MG Tablet PO ×2 (13:46→21:51)
[2022-05-25] MEDS: oxyCODONE 5 MG Tablet 10 MG PO ×2 (13:47→22:03)
[2022-05-25 15:06] LABS: Bedside Glucose 68 mg/dL (74-106)
[2022-05-25 15:06] LABS: Bedside Glucose 111 mg/dL (74-106)
--- NOTE | 2022-05-25 15:36 | PCM.PN.CARD ---
Subjective Subjective The patient continues in the ICU. She denies any ongoing chest discomfort or worsening shortness of breath. She did have episodes of her atrial fibrillation and flutter during the night. She does not recall any obvious palpitations or rapid rates at this time. Objective Data Vital Signs: Vital Signs Temp Pulse Resp BP Pulse Ox O2 Del Method O2 Flow Rate 98.1 F 102 H 16 103/50 L 95 Room Air 3 05/25/22 13:01 05/25/22 15:34 05/25/22 15:34 05/25/22 13:01 05/25/22 13:01 05/25/22 13:01 05/25/22 12:50 FiO2 3 05/23/22 15:35 Oxygen Flow Rate (L/min) [ 4 AMBULATING with Oxygen #3] Oxygen Flow Rate (L/min) [ 3 AMBULATING with Oxygen #2] Oxygen Flow Rate (L/min) [ 2 AMBULATING with Oxygen #1] Oxygen Flow Rate (L/min) [At 2 REST with Oxygen] Oxygen Flow Rate (L/min) 3 Oxygen Delivery Method Room Air Weight: 87 lb 1.321 oz Body Mass Index (BMI) 20.5 Intake & Output: Intake and Output for Last 24 Hours 05/23/22 05/24/22 05/25/22 23:59 23:59 23:59 Intake Total 0 / 0 600 / 600 200 / 200 Output Total 1475 / 1575 1750 / 1750 1070 / 1070 Balance -1475 / -1575 -1150 / -1150 -870 / -870 Lab / Micro Data Result Diagrams: 05/25/22 06:30 05/25/22 06:30 Labs: Laboratory Results - last 24 hr 05/24/22 16:16: POC Glucose 229 H 05/24/22 21:49: POC Glucose 135 H 05/25/22 06:30: WBC 7.8, RBC 2.50 L, Hgb 7.4 L, Hct 23.7 L, MCV 94.8, MCH 29.6, MCHC 31.2 L, RDW Std Deviation 51.9 H, RDW Coeff of Surinder 15.2 H, Plt Count 82 L, MPV 11.3, Immature Gran % (Auto) 0.800, Neut % (Auto) 90.7 H, Lymph % (Auto) 2.7 L, Yates % (Auto) 5.0, Eos % (Auto) 0.8, Baso % (Auto) 0.0, Absolute Neuts (auto) 7.1, Absolute Lymphs (auto) 0.21 L, Nucleated RBC % 0, Differential Comment SCANNED, Platelet Estimate MOD DEC 05/25/22 06:30: Sodium 134 L, Potassium 4.0, Chloride 100, Carbon Dioxide 32.0, Anion Gap 2 L, BUN 22 H, Creatinine 0.35 L, Estim Creat Clear Calc 31.24, Est GFR (MDRD) Af Amer 235, Est GFR (MDRD) Non-Af 195, BUN/Creatinine Ratio 63.0 H, Glucose 81, Calcium 8.5, Total Bilirubin 0.60, AST 15, ALT 55, Alkaline Phosphatase 170 H, Total Protein 5.0 L, Albumin 1.6 L, Globulin 3.4, Albumin/Globulin Ratio 0.5 L 05/25/22 09:29: POC Glucose 72 L 05/25/22 14:03: POC Glucose 68 L 05/25/22 14:44: POC Glucose 111 H Micro: Microbiology 05/19/22 23:05 Blood Culture (Wb) - Arm Left Blood Culture - Final No growth in 5 days. 05/19/22 22:35 Blood Culture (Wb) - Pic Blood Culture - Final No growth in 5 days. Cardiology Labs/Tests 05/25/22 06:30: WBC 7.8, RBC 2.50 L, Hgb 7.4 L, Hct 23.7 L, MCV 94.8, MCH 29.6, MCHC 31.2 L, Plt Count 82 L, MPV 11.3, Immature Gran % (Auto) 0.800, Neut % (Auto) 90.7 H, Lymph % (Auto) 2.7 L, Yates % (Auto) 5.0, Eos % (Auto) 0.8, Baso % (Auto) 0.0, Absolute Neuts (auto) 7.1, Nucleated RBC % 0 05/25/22 06:30: Sodium 134 L, Potassium 4.0, Chloride 100, Carbon Dioxide 32.0, Anion Gap 2 L, BUN 22 H, Creatinine 0.35 L, Est GFR (MDRD) Af Amer 235, Est GFR (MDRD) Non-Af 195, BUN/Creatinine Ratio 63.0 H, Glucose 81, Calcium 8.5, Total Bilirubin 0.60 Rhythm: Paroxysmal atrial fibrillation/flutter Physical Exam Const alert, oriented x3 and no apparent distress Orientation / Consciousness: awake HEENT normocephalic, head/scalp atraumatic and hearing grossly normal bilaterally Eyes PERRL, EOMs intact bilaterally, conjunctivae normal and no scleral icterus Neck full ROM, supple and no JVD Resp normal respiratory effort Auscultation: rhonchi throughout (Scattered) Cardio regular rate, regular rhythm, S1 normal heart sound and S2 normal heart sound Heart Sounds: murmur systolic II/ soft mid left sternal border GI normal to inspection, nondistended, normoactive bowel sounds Extremity no pedal edema Skin no rashes or lesions noted Assessment & Plan Assessment/Plan (1) SVT (supraventricular tachycardia): PLAN: The patient has a history of SVT. It appears that she has been predominantly in sinus rhythm. However, she has had recurrence of her atrial fibrillation/flutter-paroxysmal. At the moment her rate control therapy has been on hold secondary to concerns of hypotension. She is continuing her antiarrhythmic therapy with amiodarone. She is not on anticoagulant therapy secondary to concerns of her anemia and requirement for multiple PRBC transfusions. (2) Paroxysmal atrial fibrillation: PLAN: The patient has a history of PAF. At the present time she is noted to be in sinus rhythm. Ever, during the night she had recurrence of her PAF/flutter. She will continue medical management as deemed appropriate with respect to rate control therapy as she is able based upon her blood pressure recordings. She is continuing her antiarrhythmic therapy with amiodarone at 200 mg p.o. daily. Her anticoagulation therapy has been on hold secondary to her anemia. (3) Wide-complex tachycardia: PLAN: The patient has had episodes of wide-complex tachycardia. It appears to be irregular. There does not appear to be consistent underlying and repetitive atrial morphology. There is concerned this may be a form of atrial fibrillation with aberrancy. At the moment the patient's rate control therapy with her beta-anmol is on hold secondary to her hypotension. She will continue her antiarrhythmic therapy with her amiodarone. (4) CAD (coronary artery disease): PLAN: The patient has a history of CAD. The details are unknown. At the moment she will continue medical management as best as possible. (5) S/P PTCA (percutaneous transluminal coronary angioplasty): PLAN: The patient is reported as having a history of previous PCI at an outside institution. Again the details are unknown. She will continue medical therapy. (6) Cardiomyopathy: PLAN: The patient has a history of a previous transient cardiomyopathy. Her most recent echocardiogram was reviewed. Her overall LV systolic function/LVEF appears to have improved. It appears the patient has demonstrated when she has her tachycardia/tachydysrhythmia that her LV systolic function/LVEF declines and when she is back in a sinus rhythm with improved rate control her LV systolic function/LVEF improves. At the moment she appears without any acute symptoms of ongoing CHF or pulmonary edema. She will continue medical management as she is able based upon her blood pressure changes, etc. (7) Cardiac murmur: PLAN: She does have a cardiac murmur. This may be secondary to a combination of her underlying noncardiac medical conditions including her anemia, superimposed upon her echocardiographic findings of underlying valvular heart related issues especially with respect to an element of calcification of the aortic valve. (8) AAA (abdominal aortic aneurysm): PLAN: The patient has a history of a AAA. Apparently this is undergone repair in the past based upon her past medical history. (9) Pneumonia: QUALIFIERS: Pneumonia type: due to Pneumococcus Laterality: right Lung location: middle lobe of lung Qualified Code(s): J13 - Pneumonia due to Streptococcus pneumoniae PLAN: The patient is being treated for underlying pneumonia superimposed upon her history of lung carcinoma. She continues under evaluation care per internal medicine and pulmonology/critical care medicine. (10) History of lung cancer: PLAN: The patient has a history of lung carcinoma. She will continue evaluation care per hematology and oncology. Apparently there has been discussions with the patient regarding the possibility of palliative/hospice care. According to the [facility] ICU staff she has declined this option at this time. (11) Anemia: QUALIFIERS: Anemia type: unspecified type Qualified Code(s): D64.9 - Anemia, unspecified PLAN: The patient remains with anemia. Her hemoglobin declined. She has subsequently received additional PRBCs. Her hemoglobin has remained low. Apparently she declined further gastrointestinal evaluation. Addt'l Comments At the present time she will continue to be followed. If her blood pressure stabilizes then hopefully she can resume rate control therapy. If her hemoglobin level would stabilize then perhaps she could resume anticoagulant therapy at some point in time in the future. Otherwise she is continuing her antiarrhythmic therapy with her amiodarone. There are no immediate plans for additional cardiovascular diagnostic studies/intervention at this time. The patient's case has been discussed and reviewed with Dr. Salas. This note was generated using a voice recognition system and there may be incorrect words, spelling or punctuation that were not noted when reviewing the office note prior to saving. Procedure Criteria Type of Procedure Procedure Type: Elective Elective Risks - COVID COVID Risk Discussion: The surgeon/proceduralist and patient have discussed in detail the risk of exposure to and/or potential harm posed by the COVID-19 virus with having a surgery/procedure at this time versus the risk of delaying the surgery/procedure. It is not possible to know either the risk of delaying the surgery or procedure or chance of getting an infection with perfect accuracy, but a joint decision was made between the patient and the surgeon/proceduralist to proceed at this time with the scheduled surgery/procedure as indicated on the consent form.
[2022-05-25] MEDS: Potassium Chloride Oral Tablet 20 MEQ PO (17:40)
[2022-05-25 17:55] LABS: Bedside Glucose 133 mg/dL (74-106)
--- NOTE | 2022-05-25 19:31 | CASEMGMT ---
[facility] Follow-up: Late entry for 05/25/22 at 1130: Met with pt and pt's spouse face to face at bedside. Relayed that [facility] has declined to accept patient. Pt expressed frustration and states she would like to go home. Pt's spouse states that they are unable to care for pt at home and pt needs to go to rehab prior to returning home. Pt's spouse expressed concern with going to a SNF for rehab due to previous poor experience. Requests hospital based rehabilitation unit. Late entery for 05/25/22 at 1230: Call placed to Luz Marina at [facility] T[facility]/TU admissions to reassess bed availability and acceptance. After review pt accepted to [facility] and precert submitted. Pt's spouse notified. Pt not in her room. Plan: [facility] pending precert. Sarath Dangelo RN CM
[2022-05-25] MEDS: Atorvastatin Calcium 10 MG Tablet PO (21:51)
[2022-05-25] MEDS: MELATONIN 3 MG TABLET PO (21:51)
[2022-05-25] MEDS: RisperiDONE 1 MG Tablet PO (21:53)
[2022-05-25 22:05] LABS: Bedside Glucose 172 mg/dL (74-106)
[2022-05-26] VITALS (11 sets, daily range): BP systolic 87–108; BP diastolic 47–67; PULSE 58–93; RESP 14–19; TEMP 36.3–36.9; O2SAT 91–100
[2022-05-26 03:56] LABS: Absolute Neutrophil Count 8.1 X10^3/uL (2.0-7.7); Basophil# 0.01 X10^3/uL; Basophil% 0.1 % (0-1); Eosinophil# 0.02 X10^3/uL; Eosinophils% 0.2 % (0-5); Hemoglobin 7.6 g/dL (12.0-15.0); Lymphocyte % 2.3 % (19-41); Mean Corp Hgb Conc 31.7 g/dL (32-36); Mean Corpuscular Hgb 29.8 pg (27.0-32.0); Mean Corpuscular Volume 94.1 fL (81-99); Mean Platelet Vol. 11.8 fl (6.2-12.0); Monocyte# 0.34 X10^3/uL; Monocyte% 3.9 % (0-10); NRBC Flagged by Analyzer 0 % (0-5); Neutrophil # 8.08 X10^3/uL (2.7-7.7); Neutrophil % 92.7 % (47-70); POSITIVE COUNT YES; POSITIVE DIFFERENTIAL YES; Platelet Count 80 K/mm3 (150-450); RBC Distribution Width CV 14.8 % (11.6-14.6); RBC Distribution Width SD 50.8 fl (35.1-43.9); Red Blood Count 2.55 M/mm3 (4.2-5.4); White Blood Count 8.7 K/mm3 (4.4-11.0)
[2022-05-26 03:59] LABS: Differential Indicated SCAN CRITERIA MET
[2022-05-26 04:11] LABS: Differential Comment SCANNED; Platelet Estimate MOD DEC (ADEQ)
[2022-05-26 04:31] LABS: ALB/GLOB Ratio 0.5 RATIO (0.9-2.4); AST(SGOT) 14 U/L (15-37); Alanine Aminotransfer ALT/SGPT 47 U/L (13-56); Albumin, Serum 1.7 g/dL (3.2-5.0); Alkaline Phosphatase 166 U/L (45-117); Anion Gap 2 (5-15); BUN 19 mg/dL (7-18); BUN/Creat Ratio 43.4 RATIO (10-20); Calcium,Total 8.5 mg/dL (8.5-10.1); Chloride 98 mmol/L (98-107); Creatinine, Serum 0.44 mg/dL (0.55-1.02); EST Glomerular Filtration Rate 150 mL/min (>60); Est Glom Filt Rate - Afr Amer 181 mL/min (>60); Estimated Creatinine Clearance 31.24 ml/min; Globulin 3.5 g/dL (2.2-4.2); Glucose 100 mg/dL (74-106); Potassium 4.8 mmol/L (3.5-5.1); Protein, Total 5.2 g/dL (6.4-8.2); Sodium Level 132 mmol/L (136-145)
[2022-05-26] MEDS: Menthol/Lanolin/Calamine/Znox 113 GM Tube 1 APPLIC TOPICAL ×3 (05:57→21:12)
[2022-05-26] MEDS: Sodium Chloride 1 GM Tablet PO ×3 (05:57→21:11)
[2022-05-26] MEDS: Ipratropium/Albuterol Sulfate 3 ML AMPUL.NEB INHALATION ×4 (06:53→19:55)
[2022-05-26] MEDS: predniSONE 20 MG Tablet 30 MG PO (07:55)
[2022-05-26] MEDS: Potassium Chloride Oral Tablet 20 MEQ PO ×2 (07:55→18:36)
[2022-05-26] MEDS: Loratadine 10 MG Tablet PO (07:56)
[2022-05-26] MEDS: busPIRone 5 MG Tablet 10 MG PO ×2 (07:56→21:10)
[2022-05-26] MEDS: Amiodarone 200 MG Tablet PO (07:57)
[2022-05-26] MEDS: Pantoprazole Sodium 40 MG Tablet PO ×2 (07:57→21:13)
[2022-05-26] MEDS: RisperiDONE 0.5 MG Tablet PO (07:57)
[2022-05-26] MEDS: Magnesium Chloride 64 MG Delay Rel.Tablet 128 MG PO (07:57)
[2022-05-26] MEDS: Senna/Docusate Sodium 1 Tablet 2 TABLET PO (07:58)
[2022-05-26] MEDS: morphine SR 15 MG Tablet PO ×2 (08:06→21:10)
[2022-05-26] MEDS: Sucralfate 1 GM Tablet PO ×3 (08:06→17:00)
--- NOTE | 2022-05-26 08:49 | PN.CC_ITS ---
Assessment & Plan Assessment/Plan (1) Acute respiratory failure with hypoxia: (2) Pneumonia: QUALIFIERS: Pneumonia type: due to Pneumococcus Laterality: right Lung location: middle lobe of lung Qualified Code(s): J13 - Pneumonia due to Streptococcus pneumoniae (3) History of lung cancer: (4) Severe protein-calorie malnutrition: PLAN: Plan RECOMMENDATIONS: 1. Continue to wean supplemental oxygen as tolerated. Walking oximetry prior to discharge 2. Completed Levaquin. Monitor clinically. 3. Hold on blood transfusion unless patient becomes hypotensive 4. Appreciate cardiology input. 5. Wean steroids to 30 mg. Wean off over the next 8 to 12 days. No other changes in respiratory plan 6. Continue scheduled BuSpar twice daily to address underlying anxiety. 7. Continue to monitor H&H daily. Transfuse if hemoglobin drops below 7 g/dL. 8. Confirmed with GI on length of time for holding Eliquis 9. Likely okay to be discharged from a pulmonary perspective, but does have GI issues that may need to be addressed. IMPRESSIONS: 1.??Acute hypoxic respiratory failure in the setting of COPD and history of small cell lung cancer The patient presented with an acute COPD exacerbation which appears to be secondary to a right upper lobe infiltrate. The patient has slowly improved from a respiratory perspective. She remains on appropriate antimicrobials, sche duled bronchodilators and steroids. Although the patient was able to be extubated on 05/14, she decompensated from a respiratory perspective approximately 12 hours later and had to be reintubated. Clinical concern that the patient's underlying anemia and anxiety may have contributed to her decompe nsation. With further volume optimization and stabilization of her anemia status, the patient was able to be extubated once again on May 17. She had been doing well from a respiratory perspective until May 19, when she fell and developed worsening hypoxia and hypotension. Patient has been doing well from a respiratory standpoint. Appears to be at her baseline. We will monitor after EGD for complications. Steroids will be weaned today. Okay to discharge from a pulmonary perspective with steroid taper 2. Undifferentiated shock Resolved. The patient developed hypotension earlier this week, ultimately requiring the initiation of vasopressor support. The exact etiology for her initial hypotension is not entirely clear. Patient hypotensive overnight. However, patient does not appear to be symptomatic. Would increase activity as tolerated and monitor for signs and symptoms. Patient may need to have diuretics held for 24 hours. Patient was n.p.o. yesterday and was significantly fluid negative. Okay to give a small fluid bolus if necessary if symptomatic or positive orthostatics. 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 The patient will be continued on appropriate PPI therapy. There are no overt signs of blood loss. EGD yesterday showed ulcer with visible vessel. Anticipate Eliquis will need to be held for some time, but need to confer with GI on length of time. 4.??Cardiomyopathy/paroxysmal A. fib/SVT Continue medical management per cardiology recommendations. Back on baseline medications except for anticoagulation. 5.??Chronic pain syndrome/osteoporosis/GERD with history of GI bleed/CAD/debility Complicates care, management, recovery and prognosis.? Continue supportive measures as noted above. Physical therapy to work with the patient. Hold any transfusion for now unless patient becomes hypotensive. Subjective Subjective Patient with some marginal blood pressures overnight. There was discussion ab out reinitiation of Levophed, but patient has continued to mentate well. Patient is not reporting any symptomatology at this time, but has not been out of bed. No active blood loss has been reported by patient. Objective Data Objective Data EGD completed yesterday showing an ulcer with visible vessel and multiple dysplastic lesions that were treated. Vital Signs: Vital Signs Temp Pulse Resp BP Pulse Ox O2 Del Method O2 Flow Rate 36.3 C L 90 16 103/52 L 91 Nasal Cannula 3 05/26/22 05:00 05/26/22 06:53 05/26/22 06:53 05/26/22 05:00 05/26/22 06:53 05/26/22 06:53 05/26/22 06:53 FiO2 3 05/23/22 15:35 Oxygen Flow Rate (L/min) [ 4 AMBULATING with Oxygen #3] Oxygen Flow Rate (L/min) [ 3 AMBULATING with Oxygen #2] Oxygen Flow Rate (L/min) [ 2 AMBULATING with Oxygen #1] Oxygen Flow Rate (L/min) [At 2 REST with Oxygen] Oxygen Flow Rate (L/min) 3 Oxygen Delivery Method Nasal Cannula Weight: 39.5 kg Body Mass Index (BMI) 20.5 Intake & Output: Intake and Output for Last 24 Hours 05/24/22 05/25/22 05/26/22 23:59 23:59 23:59 Intake Total 600 / 600 680 / 680 Output Total 1750 / 1750 1320 / 1645 645 / 645 Balance -1150 / -1150 -640 / -965 -645 / -645 Medical Nutrition Assessment Dietitian: Malnutrition Criteria Met Start: 05/17/22 11:27 Freq: Status: Active Protocol: Document 05/25/22 13:28 AG (Rec: 05/25/22 13:28 [id number]) Nutrition Malnutrition Evidence of Malnutrition Exists Yes Malnutrition (severe): Acute Illness/Injury Evidenced By Suboptimal Energy Intake ( Severe),Physical Changes ( Severe) Intake Problem Inadequate Oral Intake Etiology related to resp. failure Signs/Symptoms as evidenced by NPO status Status Resolved Problem Clinical Problem Chronic Disease or Condition Related Malnutrition Etiology severe, chronic malnutrition related to inadequate energy intake Signs/Symptoms as evidenced by severe muscle wasting/fat loss evident in orbital, clavicle, acromion, temporal areas per physical exam; estimated energy intake meeting <75% of estimated energy needs > 3 months Status Active Problem Recommendation Dietitian Recommendations/Changes Will continue cardiac/2000 calorie controlled w/ 1250mL fluid restriction per hospitalist; will fortify foods when possible. Will d/c ensure plus high protein 120mL 4x/day w/ medpass as pt is currently refusing. Pt not interested in other ONS at this time. Lab / Micro Data Result Diagrams: 05/26/22 03:45 05/26/22 03:45 Labs: Laboratory Results - last 24 hr 05/25/22 09:29: POC Glucose 72 L 05/25/22 14:03: POC Glucose 68 L 05/25/22 14:44: POC Glucose 111 H 05/25/22 17:32: POC Glucose 133 H 05/25/22 21:43: POC Glucose 172 H 05/26/22 03:45: WBC 8.7, RBC 2.55 L, Hgb 7.6 L, Hct 24.0 L, MCV 94.1, MCH 29.8, MCHC 31.7 L, RDW Std Deviation 50.8 H, RDW Coeff of Surinder 14.8 H, Plt Count 80 L, MPV 11.8, Immature Gran % (Auto) 0.800, Neut % (Auto) 92.7 H, Lymph % (Auto) 2.3 L, [place] % (Auto) 3.9, Eos % (Auto) 0.2, Baso % (Auto) 0.1, Absolute Neuts (auto) 8.1 H, Absolute Lymphs (auto) 0.20 L, Nucleated RBC % 0, Differential Comment SCANNED, Platelet Estimate MOD 05/26/22 03:45: Sodium 132 L, Potassium 4.8, Chloride 98, Carbon Dioxide 32.0, Anion Gap 2 L, BUN 19 H, Creatinine 0.44 L, Estim Creat Clear Calc 31.24, Est GFR (MDRD) Af Amer 181, Est GFR (MDRD) Non-Af 150, BUN/Creatinine Ratio 43.4 H, Glucose 100, Calcium 8.5, Total Bilirubin 0.70, AST 14 L, ALT 47, Alkaline Phosphatase 166 H, Total Protein 5.2 L, Albumin 1.7 L, Globulin 3.5, Al bumin/Globulin Ratio 0.5 L Micro: Microbiology 05/19/22 23:05 Blood Culture (Wb) - Arm Left Blood Culture - Final No growth in 5 days. 05/19/22 22:35 Blood Culture (Wb) - Pic Blood Culture - Final No growth in 5 days. 05/19/22 22:25 Urine Catheter - Bailey Urine Culture - Final Presumptive C albicans 05/14/22 20:05 Sputum, Tracheal Aspirate Gram Stain - Final 05/14/22 20:05 Sputum, Tracheal Aspirate Respiratory Culture - Final Mixed normal respiratory mariano. No Streptococcus pneumoniae, beta-hemolytic Streptococcus or Staphylococcus aureus isolated. 05/11/22 11:50 Blood Culture (Wb) - Right Wrist Blood Culture - Final No growth in 5 days. 05/11/22 11:30 Blood Culture (Wb) #2 - Left Wrist Blood Culture - Final No growth in 5 days. 05/11/22 00:00 Urine Catheter - Bailey Urine Culture - Final Culture exhibits no growth. 05/11/22 19:40 Sputum, Expectorated/Coughed Gram Stain - Final 05/11/22 19:40 Sputum, Expectorated/Coughed Respiratory Culture - Final 05/11/22 21:45 Urine Catheter - Bailey Legionella Antigen - Final 05/11/22 21:45 Urine Catheter - Bailey Streptococcus pneumoniae Antigen (M - Final 05/11/22 11:21 Nasal Secretion SARS-CoV-2 & FLU Antigen (Rapid) - Final Physical Exam Narrative Review of chest imaging did show a right mainstem intubation that had been corrected by this morning. Const alert, oriented x3 and no apparent distress Constitutional Narrative: Appears older than stated age General Appearance: cooperative and frail Nutritional Appearance: thin HEENT normocephalic, head/scalp atraumatic, moist oral mucous membranes and oropharynx normal Eyes PERRL, EOMs intact bilaterally, conjunctivae normal and no scleral icterus Neck full ROM, no lymphadenopathy, supple, no JVD and no carotid bruits General: trachea midline Chest Chest: abnormal inspection of the chest increased A-P diameter Resp normal respiratory effort, no retractions, no use of accessory muscles and clear to auscultation bilaterally Resp Narrative: Severely diminished diffusely Auscultation: diminished lung sounds; Negative for rales, rhonchi or wheezes Cardio regular rate, regular rhythm, S1 normal heart sound, S2 normal heart sound, no murmurs, no rub, no gallops, no clicks and no JVD GI normal to inspection, nondistended, normoactive bowel sounds, soft to palpation, non-tender and non-distended GI Narrative: Scaphoid abdomen Extremity no clubbing, cyanosis or edema Extremity Narrative: 2+ pedal pulses Skin no rashes or lesions noted, no wounds, skin turgor normal, no jaundice, no petechiae and no mottling Hair: total alopecia Neuro oriented x3, CN's II-XII intact bilaterally, moves all extremities and no focal motor deficits Neuro Narrative: Severe generalized weakness Speech: speech normal Psych cooperative and affect normal Charges/Coding Visit Charges Inpatient E&M: 40089 Subs Hosp L3
[2022-05-26] MEDS: Acetaminophen 325 MG Tablet 650 MG PO ×2 (08:53→16:59)
[2022-05-26] MEDS: oxyCODONE 5 MG Tablet 10 MG PO ×3 (08:53→21:35)
[2022-05-26 10:06] LABS: Bedside Glucose 107 mg/dL (74-106)
--- NOTE | 2022-05-26 10:59 | PCM.PN.HOSP ---
Subjective Subjective Follow-up on hypotension/pneumonia/acute on chronic respiratory failure/shock: Patient was seen and examined. Patient has been going in and out of A. fib. Patient denies any dizziness or palpitations. [facility]. EGD yesterday 05/25/22 shows 1 oozing cratered gastric ulcer with visible vessel in the lesser curvature of the stoma, injected with epinephrine, three 5 mm angiodysplastic lesions in the gastric body and greater curvature, status post heater probe. Objective Data Objective Data Vital Signs: Vital Signs Temp Pulse Resp BP Pulse Ox O2 Del Method O2 Flow Rate 98.1 F 80 18 108/50 L 97 Nasal Cannula 3 05/26/22 08:00 05/26/22 08:00 05/26/22 08:00 05/26/22 08:00 05/26/22 08:00 05/26/22 09:34 05/26/22 09:34 FiO2 3 05/23/22 15:35 Oxygen Flow Rate (L/min) [ 4 AMBULATING with Oxygen #3] Oxygen Flow Rate (L/min) [ 3 AMBULATING with Oxygen #2] Oxygen Flow Rate (L/min) [ 2 AMBULATING with Oxygen #1] Oxygen Flow Rate (L/min) [At 2 REST with Oxygen] Oxygen Flow Rate (L/min) 3 Oxygen Delivery Method Nasal Cannula Weight: 39.5 kg Body Mass Index (BMI) 20.5 Intake & Output: Intake and Output for Last 24 Hours 05/24/22 05/25/22 05/26/22 23:59 23:59 23:59 Intake Total 600 / 600 680 / 680 Output Total 1750 / 1750 1320 / 1645 645 / 645 Balance -1150 / -1150 -640 / -965 -645 / -645 Medical Nutrition Assessment Dietitian: Malnutrition Criteria Met Start: 05/17/22 11:27 Freq: Status: Active Protocol: Document 05/25/22 13:28 (Rec: 05/25/22 13:28 [id number]) Nutrition Malnutrition Evidence of Malnutrition Exists Yes Malnutrition (severe): Acute Illness/Injury Evidenced By Suboptimal Energy Intake ( Severe),Physical Changes ( Severe) Intake Problem Inadequate Oral Intake Etiology related to resp. failure Signs/Symptoms as evidenced by NPO status Status Resolved Problem Clinical Problem Chronic Disease or Condition Related Malnutrition Etiology severe, chronic malnutrition related to inadequate energy intake Signs/Symptoms as evidenced by severe muscle wasting/fat loss evident in orbital, clavicle, acromion, temporal areas per physical exam; estimated energy intake meeting <75% of estimated energy needs > 3 months Status Active Problem Recommendation Dietitian Recommendations/Changes Will continue /1999 calorie controlled w/ 1250mL fluid restriction per hospitalist; will fortify foods when possible. Will d/c ensure plus high protein 120mL 4x/day w/ medpass as pt is currently refusing. Pt not interested in other ONS at this time. Lab / Micro Data Result Diagrams: 05/26/22 03:45 05/26/22 03:45 Labs: Laboratory Results - last 24 hr 05/25/22 14:03: POC Glucose 68 L 05/25/22 14:44: POC Glucose 111 H 05/25/22 17:32: POC Glucose 133 H 05/25/22 21:43: POC Glucose 172 H 05/26/22 03:45: WBC 8.7, RBC 2.55 L, Hgb 7.6 L, Hct 24.0 L, MCV 94.1, MCH 29.8, MCHC 31.7 L, RDW Std Deviation 50.8 H, RDW Coeff of Surinder 14.8 H, Plt Count 80 L, MPV 11.8, Immature Gran % (Auto) 0.800, Neut % (Auto) 92.7 H, Lymph % (Auto) 2.3 L, [place] % (Auto) 3.9, Eos % (Auto) 0.2, Baso % (Auto) 0.1, Absolute Neuts (auto) 8.1 H, Absolute Lymphs (auto) 0.20 L, Nucleated RBC % 0, Differential Comment SCANNED, Platelet Estimate MOD 05/26/22 03:45: Sodium 132 L, Potassium 4.8, Chloride 98, Carbon Dioxide 32.0, Anion Gap 2 L, BUN 19 H, Creatinine 0.44 L, Estim Creat Clear Calc 31.24, Est GFR (MDRD) Af Amer 181, Est GFR (MDRD) Non-Af 150, BUN/Creatinine Ratio 43.4 H, Glucose 100, Calcium 8.5, Total Bilirubin 0.70, AST 14 L, ALT 47, Alkaline Phosphatase 166 H, Total Protein 5.2 L, Albumin 1.7 L, Globulin 3.5, Albumin/Globulin Ratio 0.5 L 05/26/22 08:06: POC Glucose 107 H Micro: Microbiology 05/19/22 23:05 Blood Culture (Wb) - Arm Left Blood Culture - Final No growth in 5 days. 05/19/22 22:35 Blood Culture (Wb) - Pic Blood Culture - Final No growth in 5 days. 05/19/22 22:25 Urine Catheter - Bailey Urine Culture - Final Presumptive C albicans 05/14/22 20:05 Sputum, Tracheal Aspirate Gram Stain - Final 05/14/22 20:05 Sputum, Tracheal Aspirate Respiratory Culture - Final Mixed normal respiratory mariano. No Streptococcus pneumoniae, beta-hemolytic Streptococcus or Staphylococcus aureus isolated. 05/11/22 11:50 Blood Culture (Wb) - Right Wrist Blood Culture - Final No growth in 5 days. 05/11/22 11:30 Blood Culture (Wb) #2 - Left Wrist Blood Culture - Final No growth in 5 days. 05/11/22 00:00 Urine Catheter - Bailey Urine Culture - Final Culture exhibits no growth. 05/11/22 19:40 Sputum, Expectorated/Coughed Gram Stain - Final 05/11/22 19:40 Sputum, Expectorated/Coughed Respiratory Culture - Final 05/11/22 21:45 Urine Catheter - Bailey Legionella Antigen - Final 05/11/22 21:45 Urine Catheter - Bailey Streptococcus pneumoniae Antigen (M - Final 05/11/22 11:21 Nasal Secretion SARS-CoV-2 & FLU Antigen (Rapid) - Final Physical Exam Narrative Physical exam: General: Alert, Oriented x3, Cooperative, very frail, on 3 L of oxygen HEENT: Atraumatic Oral: Moist Mucosa Neck: Supple Lungs: Diminished to auscultation Cardiovascular: HS I+II, regular, no murmurs Abdomen: Bowel Sounds Present, Soft, Non Tender Extremities: No edema Skin: No rashes, No breakdown Neurological: Grossly intact Psych/Mental Status: Appropriate Assessment & Plan Assessment/Plan (1) Cardiomyopathy: (2) SVT (supraventricular tachycardia): (3) Acute respiratory failure with hypoxia: (4) Severe protein-calorie malnutrition: (5) Pneumonia: QUALIFIERS: Pneumonia type: due to Pneumococcus Laterality: right Lung location: middle lobe of lung Qualified Code(s): J13 - Pneumonia due to Streptococcus pneumoniae (6) Anemia: QUALIFIERS: Anemia type: unspecified type Qualified Code(s): D64.9 - Anemia, unspecified (7) Shock: PLAN: Plan 1. Acute on chronic hypoxic respiratory failure likely secondary to right upper lobe pneumonia/lung failure, COPD exacerbation Remains on home 3 L of oxygen Continue to encourage use of incentive spirometer Continue on prednisone taper [employer] following 2. Shock, likely secondary to hypovolemia/hemorrhagic, resolved, . Blood, urine, sputum/tracheal aspirate, cultures are negative x48 hours Continue to hold diuretics and antihypertensives 3. A. fib with RVR, heart rate is improved, continue oral amiodarone and metoprolol Continue to hold off on Eliquis Cardiology following 4. Acute GI bleed secondary to gastric ulcer/angiodysplastic lesions, status post epinephrine injection and heater probe cauterization EGD was done yesterday, 05/26/22 GI following, continue on PPI twice daily, sucralfate 5. Anemia secondary to acute blood loss from probable GI bleed, Hemoglobin is 7.6, status post 5 units of packed RBCs transfusion Will trend labs 6. Elevated LFTs likely secondary to #2, will trend 7.Severe protein calorie malnutrition, industrial editor consulted, continue supplements 8. Rest of her chronic medical conditions including small cell lung CA/CAD status post stent/hyperlipidemia/COPD/osteoporosis/chronic pain/GERD, complicates current medical care for this patient 9. DVT PPx- SCDs Charges/Coding Visit Charges Inpatient E&M: 32715 [facility] L1
[2022-05-26] MEDS: Insulin Lispro 100 UNIT/ML INSULN.PEN SC ×3 (11:40→21:41)
[2022-05-26] MEDS: CHLORHEXIDINE GLUC 2% CLOTH 1 EACH TOWELETTE TOPICAL (11:40)
[2022-05-26 12:15] LABS: Bedside Glucose 172 mg/dL (74-106)
[2022-05-26] MEDS: FLUCONAZOLE 150 MG TABLET PO (13:37)
[2022-05-26 17:00] LABS: Bedside Glucose 168 mg/dL (74-106)
--- NOTE | 2022-05-26 17:04 | PN.CARD_ITS ---
Subjective Subjective The patient was evaluated earlier this day in the ICU. She was awake and alert. She denied any acute symptoms of chest discomfort or worsening shortness of breath/dyspnea or palpitations. Objective Data Vital Signs: Vital Signs Temp Pulse Resp BP Pulse Ox O2 Del Method O2 Flow Rate 98.5 F 80 18 93/50 L 100 Nasal Cannula 3 05/26/22 14:06 05/26/22 14:58 05/26/22 14:58 05/26/22 14:06 05/26/22 14:06 05/26/22 14:06 05/26/22 14:06 FiO2 3 05/23/22 15:35 Oxygen Flow Rate (L/min) [ 4 AMBULATING with Oxygen #3] Oxygen Flow Rate (L/min) [ 3 AMBULATING with Oxygen #2] Oxygen Flow Rate (L/min) [ 2 AMBULATING with Oxygen #1] Oxygen Flow Rate (L/min) [At 2 REST with Oxygen] Oxygen Flow Rate (L/min) 3 Oxygen Delivery Method Nasal Cannula Weight: 87 lb 1.321 oz Body Mass Index (BMI) 20.5 Intake & Output: Intake and Output for Last 24 Hours 05/24/22 05/25/22 05/26/22 23:59 23:59 23:59 Intake Total 600 / 600 680 / 680 240 / 240 Output Total 1750 / 1750 1320 / 1645 1245 / 1245 Balance -1150 / -1150 -640 / -965 -1005 / -1005 Lab / Micro Data Result Diagrams: 05/26/22 03:45 05/26/22 03:45 Labs: Laboratory Results - last 24 hr 05/25/22 17:32: POC Glucose 133 H 05/25/22 21:43: POC Glucose 172 H 05/26/22 03:45: WBC 8.7, RBC 2.55 L, Hgb 7.6 L, Hct 24.0 L, MCV 94.1, MCH 29.8, MCHC 31.7 L, RDW Std Deviation 50.8 H, RDW Coeff of Surinder 14.8 H, Plt Count 80 L, MPV 11.8, Immature Gran % (Auto) 0.800, Neut % (Auto) 92.7 H, Lymph % (Auto) 2.3 L, [place] % (Auto) 3.9, Eos % (Auto) 0.2, Baso % (Auto) 0.1, Absolute Neuts (auto) 8.1 H, Absolute Lymphs (auto) 0.20 L, Nucleated RBC % 0, Differential Comment SCANNED, Platelet Estimate MOD DEC 05/26/22 03:45: Sodium 132 L, Potassium 4.8, Chloride 98, Carbon Dioxide 32.0, Anion Gap 2 L, BUN 19 H, Creatinine 0.44 L, Estim Creat Clear Calc 31.24, Est GFR (MDRD) Af Amer 181, Est GFR (MDRD) Non-Af 150, BUN/Creatinine Ratio 43.4 H, Glucose 100, Calcium 8.5, Total Bilirubin 0.70, AST 14 L, ALT 47, Alkaline Phosphatase 166 H, Total Protein 5.2 L, Albumin 1.7 L, Globulin 3.5, Albumin/Globulin Ratio 0.5 L 05/26/22 08:06: POC Glucose 107 H 05/26/22 11:39: POC Glucose 172 H 05/26/22 16:40: POC Glucose 168 H Cardiology Labs/Tests 05/26/22 03:45: WBC 8.7, RBC 2.55 L, Hgb 7.6 L, Hct 24.0 L, MCV 94.1, MCH 29.8, MCHC 31.7 L, Plt Count 80 L, MPV 11.8, Immature Gran % (Auto) 0.800, Neut % (Auto) 92.7 H, Lymph % (Auto) 2.3 L, [place] % (Auto) 3.9, Eos % (Auto) 0.2, Baso % (Auto) 0.1, Absolute Neuts (auto) 8.1 H, Nucleated RBC % 0 05/26/22 03:45: Sodium 132 L, Potassium 4.8, Chloride 98, Carbon Dioxide 32.0, Anion Gap 2 L, BUN 19 H, Creatinine 0.44 L, Est GFR (MDRD) Af Amer 181, Est GFR (MDRD) Non-Af 150, BUN/Creatinine Ratio 43.4 H, Glucose 100, Calcium 8.5, Total Bilirubin 0.70 Rhythm: Sinus rhythm/sinus tachycardia Physical Exam Const alert, oriented x3 and no apparent distress Orientation / Consciousness: awake HEENT normocephalic, head/scalp atraumatic and hearing grossly normal bilaterally Eyes PERRL, EOMs intact bilaterally, conjunctivae normal and no scleral icterus Neck full ROM, supple and no JVD Resp normal respiratory effort Auscultation: diminished lung sounds Cardio regular rate, regular rhythm, S1 normal heart sound and S2 normal heart sound Heart Sounds: murmur systolic II/ soft mid left sternal border GI normal to inspection, nondistended, normoactive bowel sounds Extremity no pedal edema Skin no rashes or lesions noted Assessment & Plan Assessment/Plan (1) SVT (supraventricular tachycardia): PLAN: The patient has a history of SVT. Since her most recent episode of PAF/flutter it appears she is remaining in sinus rhythm at this time. At the moment her rate control therapy has been on hold secondary to concerns of hypotension. She is continuing her antiarrhythmic therapy with amiodarone. She is not on anticoagulant therapy secondary to concerns of her anemia and requirement for multiple PRBC transfusions. (2) Paroxysmal atrial fibrillation: PLAN: The patient has a history of PAF. She did have recurrent PAF/flutter. It appears she is return to sinus rhythm and has been maintaining since her most recent episode. At the present time she is noted to be in sinus rhythm. She will continue medical management as deemed appropriate with respect to rate control therapy as she is able based upon her blood pressure recordings. She is continuing her antiarrhythmic therapy with amiodarone at 200 mg p.o. daily. Her anticoagulation therapy has been on hold secondary to her anemia. (3) Wide-complex tachycardia: PLAN: The patient has had episodes of wide-complex tachycardia. It appears to be irregular. There does not appear to be consistent underlying and repetitive atrial morphology. There is concerned this may be a form of atrial fibrillation with aberrancy. At the moment the patient's rate control therapy with her beta-anmol is on hold secondary to her hypotension. She will continue her antiarrhythmic therapy with her amiodarone. (4) CAD (coronary artery disease): PLAN: The patient has a history of CAD. The details are unknown. At the moment she will continue medical management as best as possible. (5) S/P PTCA (percutaneous transluminal coronary angioplasty): PLAN: The patient is reported as having a history of previous PCI at an outside institution. Again the details are unknown. She will continue medical therapy. (6) Cardiomyopathy: PLAN: The patient has a history of a previous transient cardiomyopathy. Her most recent echocardiogram was reviewed. Her overall LV systolic function/LVEF appears to have improved. It appears the patient has demonstrated when she has her tachycardia/tachy dysrhythmia that her LV systolic function/LVEF declines and when she is back in a sinus rhythm with improved rate control her LV systolic function/LVEF improves. At the moment she appears without any acute symptoms of ongoing CHF or pulmonary edema. She will continue medical management as she is able based upon her blood pressure changes, etc. (7) Cardiac murmur: PLAN: She does have a cardiac murmur. This may be secondary to a combination of her underlying noncardiac medical conditions including her anemia, superimposed upon her echocardiographic findings of underlying valvular heart related issues especially with respect to an element of calcification of the aortic valve. (8) Pneumonia: QUALIFIERS: Pneumonia type: due to Pneumococcus Laterality: right Lung location: middle lobe of lung Qualified Code(s): J13 - Pneumonia due to Streptococcus pneumoniae PLAN: The patient is being treated for underlying pneumonia superimposed upon her history of lung carcinoma. She continues under evaluation care per internal medicine and pulmonology/critical care medicine. She continues on antibiotic therapy. (9) History of lung cancer: PLAN: The patient has a history of lung carcinoma. She will continue evaluation care per hematology and oncology. Apparently there has been discussions with the patient regarding the possibility of palliative/hospice care. According to the [facility] ICU staff she has declined this option at this time. (10) Anemia: QUALIFIERS: Anemia type: unspecified type Qualified Code(s): D64.9 - Anemia, unspecified PLAN: The patient remains with anemia. She has subsequently received additional PRBCs. She initially declined but subsequently has undergone further gastrointestinal evaluation with EGD. She was found to have an oozing gastric ulcer and 3 bleeding angiodysplastic areas. She was treated during her EGD. She is continuing medical therapy at this time with PPI. Again based upon this she has not a candidate for anticoagulant therapy at this time. Addt'l Comments At the moment she will continue her medical management with her amiodarone therapy. If her blood pressure improves and she can tolerate other rate limiting medications that it would be reasonable to restart them as deemed appropriate. Again she is not a candidate for anticoagulant therapy at this time secondary to concerns of her gastrointestinal bleeding related issue and anemia. The patient is aware of the above. This note was generated using a voice recognition system and there may be incorrect words, spelling or punctuation that were not noted when reviewing the office note prior to saving. Comment: Time spent in the patient's overall evaluation, care, examination, doc umentation, etc., 37 minutes. Procedure Criteria Type of Procedure Procedure Type: Elective Elective Risks - COVID COVID Risk Discussion: The surgeon/proceduralist and patient have discussed in detail the risk of exposure to and/or potential harm posed by the COVID-19 virus with having a surgery/procedure at this time versus the risk of delaying the surgery/pro cedure. It is not possible to know either the risk of delaying the surgery or procedure or chance of getting an infection with perfect accuracy, but a joint decision was made between the patient and the surgeon/proceduralist to proceed at this time with the scheduled surgery/procedure as indicated on the consent form.
[2022-05-26] MEDS: MELATONIN 3 MG TABLET PO (21:12)
[2022-05-26] MEDS: RisperiDONE 1 MG Tablet PO (21:13)
[2022-05-26] MEDS: Atorvastatin Calcium 10 MG Tablet PO (21:13)
[2022-05-26 22:10] LABS: Bedside Glucose 158 mg/dL (74-106)
[2022-05-27] VITALS (18 sets, daily range): BP systolic 94–119; BP diastolic 42–65; PULSE 61–107; RESP 11–20; TEMP 36.5–37.1; O2SAT 94–99
[2022-05-27 03:55] LABS: Absolute Lymphocyte Count 0.23 X10^3/uL (0.83-4.51); Eosinophil# 0.04 X10^3/uL; Eosinophils% 0.6 % (0-5); Hematocrit 22.9 % (37-47); Hemoglobin 7.3 g/dL (12.0-15.0); Lymphocyte # 0.23 X10^3/ul (0.83-4.51); Lymphocyte % 3.5 % (19-41); Mean Corp Hgb Conc 31.9 g/dL (32-36); Mean Corpuscular Hgb 29.7 pg (27.0-32.0); Mean Corpuscular Volume 93.1 fL (81-99); Mean Platelet Vol. 10.8 fl (6.2-12.0); Monocyte# 0.27 X10^3/uL; Monocyte% 4.1 % (0-10); NRBC Flagged by Analyzer 0 % (0-5); Neutrophil # 5.97 X10^3/uL (2.7-7.7); Neutrophil % 90.9 % (47-70); POSITIVE COUNT YES; POSITIVE DIFFERENTIAL YES; Platelet Count 73 K/mm3 (150-450); RBC Distribution Width CV 14.6 % (11.6-14.6); RBC Distribution Width SD 48.9 fl (35.1-43.9); Red Blood Count 2.46 M/mm3 (4.2-5.4); White Blood Count 6.6 K/mm3 (4.4-11.0)
[2022-05-27 03:56] LABS: Differential Indicated SCAN CRITERIA MET
[2022-05-27 04:09] LABS: ALB/GLOB Ratio 0.5 RATIO (0.9-2.4); AST(SGOT) 22 U/L (15-37); Alanine Aminotransfer ALT/SGPT 42 U/L (13-56); Albumin, Serum 1.7 g/dL (3.2-5.0); Alkaline Phosphatase 169 U/L (45-117); Anion Gap 6 (5-15); BUN 22 mg/dL (7-18); BUN/Creat Ratio 56.8 RATIO (10-20); Calcium,Total 8.4 mg/dL (8.5-10.1); Chloride 97 mmol/L (98-107); Creatinine, Serum 0.39 mg/dL (0.55-1.02); EST Glomerular Filtration Rate 173 mL/min (>60); Est Glom Filt Rate - Afr Amer 209 mL/min (>60); Estimated Creatinine Clearance 31.24 ml/min; Globulin 3.3 g/dL (2.2-4.2); Glucose 90 mg/dL (74-106); Potassium 4.3 mmol/L (3.5-5.1); Sodium Level 133 mmol/L (136-145)
--- NOTE | 2022-05-27 04:30 | CPS ---
Pt refused to perform
[2022-05-27 05:17] LABS: Differential Comment SCANNED; Platelet Estimate MOD DEC (ADEQ)
[2022-05-27] MEDS: oxyCODONE 5 MG Tablet 10 MG PO ×3 (05:20→23:47)
[2022-05-27] MEDS: Sucralfate 1 GM Tablet PO ×3 (07:05→16:08)
[2022-05-27] MEDS: Sodium Chloride 1 GM Tablet PO ×3 (07:05→21:34)
[2022-05-27] MEDS: Menthol/Lanolin/Calamine/Znox 113 GM Tube 1 APPLIC TOPICAL ×3 (07:06→21:34)
--- NOTE | 2022-05-27 07:25 | CPS ---
Pt refused aerosol rx at 0656. Pt was informed that her next rx would not be till 1100 am. Pt was fine with that and continued to refuse
[2022-05-27 07:35] LABS: Bedside Glucose 88 mg/dL (74-106)
[2022-05-27] MEDS: morphine SR 15 MG Tablet PO ×2 (09:38→21:31)
[2022-05-27] MEDS: predniSONE 20 MG Tablet 30 MG PO (09:43)
[2022-05-27] MEDS: Potassium Chloride Oral Tablet 20 MEQ PO ×2 (09:43→18:21)
[2022-05-27] MEDS: busPIRone 5 MG Tablet 10 MG PO ×2 (09:44→21:35)
[2022-05-27] MEDS: Magnesium Chloride 64 MG Delay Rel.Tablet 128 MG PO (09:45)
[2022-05-27] MEDS: Pantoprazole Sodium 40 MG Tablet PO ×2 (09:45→21:34)
[2022-05-27] MEDS: Loratadine 10 MG Tablet PO (09:45)
[2022-05-27] MEDS: RisperiDONE 0.5 MG Tablet PO (09:46)
--- NOTE | 2022-05-27 09:48 | PN.CARD_ITS ---
Subjective Subjective The patient is now in the PCU. She has been up with OT/PT. She states overall she is feeling better. Objective Data Vital Signs: Vital Signs Temp Pulse Resp BP Pulse Ox O2 Del Method O2 Flow Rate 97.9 F 81 18 95/42 L 95 Nasal Cannula 3 05/27/22 09:17 05/27/22 09:17 05/27/22 09:17 05/27/22 09:17 05/27/22 09:17 05/27/22 09:27 05/27/22 09:27 FiO2 3 05/23/22 15:35 Oxygen Flow Rate (L/min) [ 4 AMBULATING with Oxygen #3] Oxygen Flow Rate (L/min) [ 3 AMBULATING with Oxygen #2] Oxygen Flow Rate (L/min) [ 2 AMBULATING with Oxygen #1] Oxygen Flow Rate (L/min) [At 2 REST with Oxygen] Oxygen Flow Rate (L/min) 3 Oxygen Delivery Method Nasal Cannula Weight: 81 lb 9.137 oz Body Mass Index (BMI) 20.5 Intake & Output: Intake and Output for Last 24 Hours 05/25/22 05/26/22 05/27/22 23:59 23:59 23:59 Intake Total 680 / 680 460 / 460 Output Total 1320 / 1645 1245 / 1245 Balance -640 / -965 -785 / -785 Lab / Micro Data Result Diagrams: 05/27/22 03:47 05/27/22 03:47 Labs: Laboratory Results - last 24 hr 05/26/22 08:06: POC Glucose 107 H 05/26/22 11:39: POC Glucose 172 H 05/26/22 16:40: POC Glucose 168 H 05/26/22 21:39: POC Glucose 158 H 05/27/22 03:47: WBC 6.6, RBC 2.46 L, Hgb 7.3 L, Hct 22.9 L, MCV 93.1, MCH 29.7, MCHC 31.9 L, RDW Std Deviation 48.9 H, RDW Coeff of Surinder 14.6, Plt Count 73 L, MPV 10.8, Immature Gran % (Auto) 0.900, Neut % (Auto) 90.9 H, Lymph % (Auto) 3.5 L, [place] % (Auto) 4.1, Eos % (Auto) 0.6, Baso % (Auto) 0.0, Absolute Neuts (auto) 6.0, Absolute Lymphs (auto) 0.23 L, Nucleated RBC % 0, Differential Comment SCANNED, Platelet Estimate MOD DEC 05/27/22 03:47: Sodium 133 L, Potassium 4.3, Chloride 97 L, Carbon Dioxide 30.0, Anion Gap 6, BUN 22 H, Creatinine 0.39 L, Estim Creat Clear Calc 31.24, Est GFR (MDRD) Af Amer 209, Est GFR (MDRD) Non-Af 173, BUN/Creatinine Ratio 56.8 H, Glucose 90, Calcium 8.4 L, Total Bilirubin 0.40, AST 22, ALT 42, Alkaline Phosphatase 169 H, Total Protein 5.0 L, Albumin 1.7 L, Globulin 3.3, Albumin/Globulin Ratio 0.5 L 05/27/22 07:09: POC Glucose 88 Cardiology Labs/Tests 05/27/22 03:47: WBC 6.6, RBC 2.46 L, Hgb 7.3 L, Hct 22.9 L, MCV 93.1, MCH 29.7, MCHC 31.9 L, Plt Count 73 L, MPV 10.8, Immature Gran % (Auto) 0.900, Neut % (Auto) 90.9 H, Lymph % (Auto) 3.5 L, [place] % (Auto) 4.1, Eos % (Auto) 0.6, Baso % (Auto) 0.0, Absolute Neuts (auto) 6.0, Nucleated RBC % 0 05/27/22 03:47: Sodium 133 L, Potassium 4.3, Chloride 97 L, Carbon Dioxide 30.0, Anion Gap 6, BUN 22 H, Creatinine 0.39 L, Est GFR (MDRD) Af Amer 209, Est GFR (MDRD) Non-Af 173, BUN/Creatinine Ratio 56.8 H, Glucose 90, Calcium 8.4 L, Total Bilirubin 0.40 Rhythm: Sinus rhythm/sinus bradycardia/sinus rhythm with aberrancy Physical Exam Const alert, oriented x3 and no apparent distress Orientation / Consciousness: awake HEENT normocephalic, head/scalp atraumatic and hearing grossly normal bilaterally Eyes PERRL, EOMs intact bilaterally, conjunctivae normal and no scleral icterus Neck full ROM, supple and no JVD Resp normal respiratory effort Auscultation: diminished lung sounds right Cardio regular rate, regular rhythm, S1 normal heart sound and S2 normal heart sound Heart Sounds: murmur systolic II/ soft mid left sternal border GI normal to inspection, nondistended, normoactive bowel sounds Extremity no pedal edema Skin no rashes or lesions noted Assessment & Plan Assessment/Plan (1) SVT (supraventricular tachycardia): PLAN: The patient has a history of SVT. Since her most recent episode of PAF/flutter it appears she is remaining in sinus rhythm at this time. At the moment her rate control therapy has been on hold secondary to concerns of hypotension. She is continuing her antiarrhythmic therapy with amiodarone. She is not on anticoagulant therapy secondary to concerns of her anemia and requirement for multiple PRBC transfusions. (2) Paroxysmal atrial fibrillation: PLAN: The patient has a history of PAF. She did have recurrent PAF/flutter. It appears she is return to sinus rhythm and has been maintaining since her most recent episode. At the present time she is noted to be back in sinus rhythm. She will continue medical management as deemed appropriate with respect to rate control therapy as she is able based upon her blood pressure recordings. She is continuing her antiarrhythmic therapy with amiodarone at 200 mg p.o. daily. Her anticoagulation therapy has been on hold secondary to her anemia. (3) Wide-complex tachycardia: PLAN: The patient has had episodes of wide-complex tachycardia. It appears to be irregular. There does not appear to be consistent underlying and repetitive atrial morphology. There is concerned this may be a form of atrial fibrillation with aberrancy. At the same time she also has evidence of sinus rhythm with wide QRS appearing compatible with aberrancy. At the moment the patient's rate control therapy with her beta-anmol is on hold secondary to her hypotension. She will continue her antiarrhythmic therapy with her amiodarone. (4) CAD (coronary artery disease): PLAN: The patient has a history of CAD. The details are unknown. At the moment she will continue medical management as best as possible. (5) S/P PTCA (percutaneous transluminal coronary angioplasty): PLAN: The patient is reported as having a history of previous PCI at an outside institution. Again the details are unknown. She will continue medical therapy. (6) Cardiomyopathy: PLAN: The patient has a history of a previous transient cardiomyopathy. Her most recent echocardiogram was reviewed. Her overall LV systolic function/LVEF appears to have improved. It appears the patient has demonstrated when she has her tachycardia/tachydysrhythmia that her LV systolic function/LVEF declines and when she is back in a sinus rhythm with improved rate control her LV systolic function/LVEF improves. At the moment she appears without any acute symptoms of ongoing CHF or pulmonary edema. She will continue medical management as she is able based upon her blood pressure changes, etc. (7) Cardiac murmur: PLAN: She does have a cardiac murmur. This may be secondary to a combination of her underlying noncardiac medical conditions including her anemia, superimposed upon her echocardiographic findings of underlying valvular heart related issues especially with respect to an element of calcification of the aortic valve. (8) Pneumonia: QUALIFIERS: Pneumonia type: due to Pneumococcus Laterality: right Lung location: middle lobe of lung Qualified Code(s): J13 - Pneumonia due to Streptococcus pneumoniae PLAN: The patient is being treated for underlying pneumonia superimposed upon her history of lung carcinoma. She continues under evaluation care per internal medicine and pulmonology/critical care medicine. She has been on antibiotic therapy. (9) History of lung cancer: PLAN: The patient has a history of lung carcinoma. She will continue evaluation care per hematology and oncology. Apparently there has been discussions with the patient regarding the possibility of palliative/hospice care. According to the [facility] ICU staff she has declined this option at this time. (10) Anemia: QUALIFIERS: Anemia type: unspecified type Qualified Code(s): D64.9 - Anemia, unspecified PLAN: The patient remains with anemia. She has subsequently received additional PRBCs. She initially declined but subsequently has undergone further gastrointestinal evaluation with EGD. She was found to have an oozing gastric ulcer and 3 bleeding angiodysplastic areas. She was treated during her EGD. She is continuing medical therapy at this time with PPI. Her hemoglobin remains low. It appears she is going to receive additional PRBCs to assist in her O2 carrying capacity which should benefit her overall cardiovascular status as well. Addt'l Comments The patient's case was discussed and reviewed with the patient and Dr. Salas. Comment: Time spent in the patient's overall evaluation, examination, documentation, discussion, care, etc.: 37 minutes. Procedure Criteria Type of Procedure Procedure Type: Elective Elective Risks - COVID COVID Risk Discussion: The surgeon/proceduralist and patient have discussed in detail the risk of exposure to and/or potential harm posed by the COVID-19 virus with having a surgery/procedure at this time versus the risk of delaying the surgery/procedure. It is not possible to know either the risk of delaying the surgery or procedure or chance of getting an infection with perfect accuracy, but a joint decision was made between the patient and the surgeon/proceduralist to proceed at this time with the scheduled surgery/procedure as indicated on the consent form.
[2022-05-27] MEDS: Amiodarone 200 MG Tablet PO (10:28)
[2022-05-27] MEDS: Ipratropium/Albuterol Sulfate 3 ML AMPUL.NEB INHALATION ×3 (11:14→20:05)
[2022-05-27] MEDS: 0.9% Saline Lock 10 ML Syringe IV ×4 (11:40→19:10)
[2022-05-27 11:46] LABS: Bedside Glucose 105 mg/dL (74-106)
--- NOTE | 2022-05-27 13:06 | PCM.PN.INT ---
Assessment & Plan Assessment/Plan (1) Acute respiratory failure with hypoxia: (2) Pneumonia: QUALIFIERS: Pneumonia type: due to Pneumococcus Laterality: right Lung location: middle lobe of lung Qualified Code(s): J13 - Pneumonia due to Streptococcus pneumoniae (3) History of lung cancer: (4) Severe protein-calorie malnutrition: PLAN: Plan RECOMMENDATIONS: 1. Continue to wean supplemental oxygen as tolerated. Walking oximetry prior to discharge 2. Completed Levaquin. Monitor clinically. 3. Hold on blood transfusion unless patient becomes hypotensive 4. Appreciate cardiology input. 5. Wean steroids to 20 mg tomorrow. Wean off over the next 6 to 8 days. No other changes in respiratory plan 6. Continue scheduled BuSpar twice daily to address underlying anxiety. 7. Continue to monitor H&H daily. Transfuse if hemoglobin drops below 7 g/dL. 8. Patient appears to be tolerating reinitiation of Eliquis 9. Hemodynamically stable for multiple days from a respiratory standpoint. Will sign off. Call with issues IMPRESSIONS: 1.??Acute hypoxic respiratory failure in the setting of COPD and history of small cell lung cancer Resolved, back to baseline. The patient presented with an acute COPD exacerbation which appears to be secondary to a right upper lobe infiltrate. The patient has slowly improved from a respiratory perspective. She remains on appropriate antimicrobials, scheduled bronchodilators and steroids. Although the patient was able to be extubated on 05/14, she decompensated from a respiratory perspective approximately 12 hours later and had to be reintubated. Clinical concern that the patient's underlying anemia and anxiety may have contributed to her decompensation. With further volume optimization and stabilization of her anemia status, the patient was able to be extubated once again on May 17. She had been doing well from a respiratory perspective until May 19, when she fell and developed worsening hypoxia and hypotension. Steroids will be weaned today. Okay to discharge from a pulmonary perspective with steroid taper. Given patient's stability from respiratory standpoint, will sign off. Please call with any further issues. 2. Undifferentiated shock Resolved. The patient developed hypotension earlier this week, ultimately requiring the initiation of vasopressor support. The exact etiology for her initial hypotension is not entirely clear. Patient hypotensive overnight. However, patient does not appear to be symptomatic. Would increase activity as tolerated and monitor for signs and symptoms. Patient may need to have diuretics held for 24 hours. Patient was n.p.o. yesterday and was significantly fluid negative. Okay to give a small fluid bolus if necessary if symptomatic or positive orthostatics. 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 The patient will be continued on appropriate PPI therapy. There are no overt signs of blood loss. EGD yesterday showed ulcer with visible vessel. Patient appears to be tolerating reinitiation of Eliquis well 4.??Cardiomyopathy/paroxysmal A. fib/SVT Continue medical management per cardiology recommendations. Back on baseline medications except for anticoagulation. 5.??Chronic pain syndrome/osteoporosis/GERD with history of GI bleed/CAD/debility Complicates care, management, recovery and prognosis.? Continue supportive measures as noted above. Physical therapy to work with the patient. Hold any transfusion for now unless patient becomes hypotensive. Subjective Subjective Patient did well overnight. No acute issues were reported. Patient states she is waiting on a pen[facility]. Patient states that she has not had any significant cough. Patient does have some dyspnea on exertion, but does not believe this is any worse than normal. Objective Data Objective Data Vital Signs: Vital Signs Temp Pulse Resp BP Pulse Ox O2 Del Method O2 Flow Rate 36.6 C 68 18 94/52 L 97 Nasal Cannula 3 05/27/22 11:46 05/27/22 12:20 05/27/22 11:46 05/27/22 11:46 05/27/22 11:46 05/27/22 11:46 05/27/22 11:14 FiO2 3 05/23/22 15:35 Oxygen Flow Rate (L/min) [ 4 AMBULATING with Oxygen #3] Oxygen Flow Rate (L/min) [ 3 AMBULATING with Oxygen #2] Oxygen Flow Rate (L/min) [ 2 AMBULATING with Oxygen #1] Oxygen Flow Rate (L/min) [At 2 REST with Oxygen] Oxygen Flow Rate (L/min) 3 Oxygen Delivery Method Nasal Cannula Weight: 37 kg Body Mass Index (BMI) 20.5 Intake & Output: Intake and Output for Last 24 Hours 05/25/22 05/26/22 05/27/22 23:59 23:59 23:59 Intake Total 680 / 680 460 / 460 Output Total 1320 / 1645 1245 / 1245 Balance -640 / -965 -785 / -785 Medical Nutrition Assessment Dietitian: Malnutrition Criteria Met Start: 05/17/22 11:27 Freq: Status: Active Protocol: Document 05/25/22 13:28 (Rec: 05/25/22 13:28 AG [id number]) Nutrition Malnutrition Evidence of Malnutrition Exists Yes Malnutrition (severe): Acute Illness/Injury Evidenced By Suboptimal Energy Intake ( Severe),Physical Changes ( Severe) Intake Problem Inadequate Oral Intake Etiology related to resp. failure Signs/Symptoms as evidenced by NPO status Status Resolved Problem Clinical Problem Chronic Disease or Condition Related Malnutrition Etiology severe, chronic malnutrition related to inadequate energy intake Signs/Symptoms as evidenced by severe muscle wasting/fat loss evident in orbital, clavicle, acromion, temporal areas per physical exam; estimated energy intake meeting <75% of estimated energy needs > 3 months Status Active Problem Recommendation Dietitian Recommendations/Changes Will continue cardiac/2000 calorie controlled w/ 1250mL fluid restriction per hospitalist; will fortify foods when possible. Will d/c ensure plus high protein 120mL 4x/day w/ medpass as pt is currently refusing. Pt not interested in other ONS at this time. Lab / Micro Data Attestation: I reviewed the patient's lab results. Result Diagrams: 05/27/22 03:47 05/27/22 03:47 Labs: Laboratory Results - last 24 hr 05/26/22 16:40: POC Glucose 168 H 05/26/22 21:39: POC Glucose 158 H 05/27/22 03:47: WBC 6.6, RBC 2.46 L, Hgb 7.3 L, Hct 22.9 L, MCV 93.1, MCH 29.7, MCHC 31.9 L, RDW Std Deviation 48.9 H, RDW Coeff of Surinder 14.6, Plt Count 73 L, MPV 10.8, Immature Gran % (Auto) 0.900, Neut % (Auto) 90.9 H, Lymph % (Auto) 3.5 L, [place] % (Auto) 4.1, Eos % (Auto) 0.6, Baso % (Auto) 0.0, Absolute Neuts (auto) 6.0, Absolute Lymphs (auto) 0.23 L, Nucleated RBC % 0, Differential Comment SCANNED, Platelet Estimate MOD DEC 05/27/22 03:47: Sodium 133 L, Potassium 4.3, Chloride 97 L, Carbon Dioxide 30.0, Anion Gap 6, BUN 22 H, Creatinine 0.39 L, Estim Creat Clear Calc 31.24, Est GFR (MDRD) Af Amer 209, Est GFR (MDRD) Non-Af 173, BUN/Creatinine Ratio 56.8 H, Glucose 90, Calcium 8.4 L, Total Bilirubin 0.40, AST 22, ALT 42, Alkaline Phosphatase 169 H, Total Protein 5.0 L, Albumin 1.7 L, Globulin 3.3, Albumin/Globulin Ratio 0.5 L 05/27/22 07:09: POC Glucose 88 05/27/22 11:00: Blood Type O POSITIVE, Antibody Screen NEGATIVE, Crossmatch See Detail 05/27/22 11:18: POC Glucose 105 Micro: Microbiology 05/19/22 23:05 Blood Culture (Wb) - Arm Left Blood Culture - Final No growth in 5 days. 05/19/22 22:35 Blood Culture (Wb) - Pic Blood Culture - Final No growth in 5 days. 05/19/22 22:25 Urine Catheter - Bailey Urine Culture - Final Presumptive C albicans 05/14/22 20:05 Sputum, Tracheal Aspirate Gram Stain - Final 05/14/22 20:05 Sputum, Tracheal Aspirate Respiratory Culture - Final Mixed normal respiratory mariano. No Streptococcus pneumoniae, beta-hemolytic Streptococcus or Staphylococcus aureus isolated. 05/11/22 11:50 Blood Culture (Wb) - Right Wrist Blood Culture - Final No growth in 5 days. 05/11/22 11:30 Blood Culture (Wb) #2 - Left Wrist Blood Culture - Final No growth in 5 days. 05/11/22 00:00 Urine Catheter - Bailey Urine Culture - Final Culture exhibits no growth. 05/11/22 19:40 Sputum, Expectorated/Coughed Gram Stain - Final 05/11/22 19:40 Sputum, Expectorated/Coughed Respiratory Culture - Final 05/11/22 21:45 Urine Catheter - Bailey Legionella Antigen - Final 05/11/22 21:45 Urine Catheter - Bailey Streptococcus pneumoniae Antigen (M - Final 05/11/22 11:21 Nasal Secretion SARS-CoV-2 & FLU Antigen (Rapid) - Final Physical Exam Const alert, oriented x3 and no apparent distress Constitutional Narrative: Appears older than stated age General Appearance: cooperative and frail HEENT normocephalic, head/scalp atraumatic, moist oral mucous membranes and oropharynx normal Eyes PERRL, EOMs intact bilaterally, conjunctivae normal and no scleral icterus Neck full ROM, no lymphadenopathy, supple, no JVD and no carotid bruits General: trachea midline Chest Chest: abnormal inspection of the chest increased A-P diameter Resp normal respiratory effort, no retractions, no use of accessory muscles and clear to auscultation bilaterally Resp Narrative: Severely diminished diffusely Auscultation: diminished lung sounds; Negative for rales, rhonchi or wheezes Cardio regular rate, regular rhythm, S1 normal heart sound, S2 normal heart sound, no murmurs, no rub, no gallops, no clicks and no JVD GI normal to inspection, nondistended, normoactive bowel sounds, soft to palpation, non-tender and non-distended GI Narrative: Scaphoid abdomen Extremity no clubbing, cyanosis or edema Extremity Narrative: 2+ pedal pulses Skin no rashes or lesions noted, no wounds, skin turgor normal, no jaundice, no petechiae and no mottling Hair: total alopecia Neuro oriented x3, CN's II-XII intact bilaterally, moves all extremities and no focal motor deficits Neuro Narrative: Severe generalized weakness Sensorium / Orientation: sedated on vent Speech: speech normal Psych cooperative and affect normal Charges/Coding Visit Charges Inpatient E&M: 35067 Subs Hosp L2
[2022-05-27] MEDS: Furosemide 20 MG/2 ML VIAL IV (15:12)
[2022-05-27] MEDS: Insulin Lispro 100 UNIT/ML INSULN.PEN SC (16:15)
[2022-05-27 16:46] LABS: Bedside Glucose 168 mg/dL (74-106)
--- NOTE | 2022-05-27 18:09 | PN.HOSP_ITS ---
Subjective Subjective Follow-up on hypotension/pneumonia/acute on chronic respiratory failure/shock: Patient was seen and examined. No acute events overnight. Denied any new complaint. Patient's was at the bedside. Discussed with GI, patient's hemoglobin is 7.8, will transfuse with packed RBCs. Objective Data Objective Data Vital Signs: Vital Signs Temp Pulse Resp BP Pulse Ox O2 Del Method O2 Flow Rate 98 F 82 16 98/55 L 97 Nasal Cannula 3 05/27/22 17:02 05/27/22 17:02 05/27/22 17:02 05/27/22 17:02 05/27/22 17:02 05/27/22 17:02 05/27/22 17:02 FiO2 3 05/23/22 15:35 Oxygen Flow Rate (L/min) [ 4 AMBULATING with Oxygen #3] Oxygen Flow Rate (L/min) [ 3 AMBULATING with Oxygen #2] Oxygen Flow Rate (L/min) [ 2 AMBULATING with Oxygen #1] Oxygen Flow Rate (L/min) [At 2 REST with Oxygen] Oxygen Flow Rate (L/min) 3 Oxygen Delivery Method Nasal Cannula Weight: 37 kg Body Mass Index (BMI) 20.5 Intake & Output: Intake and Output for Last 24 Hours 05/25/22 05/26/22 05/27/22 23:59 23:59 23:59 Intake Total 680 / 680 460 / 460 620 / 620 Output Total 1320 / 1645 1245 / 1245 Balance -640 / -965 -785 / -785 620 / 620 Medical Nutrition Assessment Dietitian: Malnutrition Criteria Met Start: 05/17/22 11:27 Freq: Status: Active Protocol: Document 05/25/22 13:28 (Rec: 05/25/22 13:28 [id number]) Nutrition Malnutrition Evidence of Malnutrition Exists Yes Malnutrition (severe): Acute Illness/Injury Evidenced By Suboptimal Energy Intake ( Severe),Physical Changes ( Severe) Intake Problem Inadequate Oral Intake Etiology related to resp. failure Signs/Symptoms as evidenced by NPO status Status Resolved Problem Clinical Problem Chronic Disease or Condition Related Malnutrition Etiology severe, chronic malnutrition related to inadequate energy intake Signs/Symptoms as evidenced by severe muscle wasting/fat loss evident in orbital, clavicle, acromion, temporal areas per physical exam; estimated energy intake meeting <75% of estimated energy needs > 3 months Status Active Problem Recommendation Dietitian Recommendations/Changes Will continue cardiac/1999 calorie controlled w/ 1250mL fluid restriction per hospitalist; will fortify foods when possible. Will d/c ensure plus high protein 120mL 4x/day w/ medpass as pt is currently refusing. Pt not interested in other ONS at this time. Lab / Micro Data Result Diagrams: 05/28/22 08:35 05/28/22 08:35 Labs: Laboratory Results - last 24 hr 05/26/22 21:39: POC Glucose 158 H 05/27/22 03:47: WBC 6.6, RBC 2.46 L, Hgb 7.3 L, Hct 22.9 L, MCV 93.1, MCH 29.7, MCHC 31.9 L, RDW Std Deviation 48.9 H, RDW Coeff of Surinder 14.6, Plt Count 73 L, MPV 10.8, Immature Gran % (Auto) 0.900, Neut % (Auto) 90.9 H, Lymph % (Auto) 3.5 L, [place] % (Auto) 4.1, Eos % (Auto) 0.6, Baso % (Auto) 0.0, Absolute Neuts (auto) 6.0, Absolute Lymphs (auto) 0.23 L, Nucleated RBC % 0, Differential Comment SCANNED, Platelet Estimate MOD 05/27/22 03:47: Sodium 133 L, Potassium 4.3, Chloride 97 L, Carbon Dioxide 30.0, Anion Gap 6, BUN 22 H, Creatinine 0.39 L, Estim Creat Clear Calc 31.24, Est GFR (MDRD) Af Amer 209, Est GFR (MDRD) Non-Af 173, BUN/Creatinine Ratio 56.8 H, Glucose 90, Calcium 8.4 L, Total Bilirubin 0.40, AST 22, ALT 42, Alkaline Phosphatase 169 H, Total Protein 5.0 L, Albumin 1.7 L, Globulin 3.3, Albumin/Globulin Ratio 0.5 L 05/27/22 07:09: POC Glucose 88 05/27/22 11:00: Blood Type O POSITIVE, Antibody Screen NEGATIVE, Crossmatch See Detail 05/27/22 11:18: POC Glucose 105 05/27/22 16:02: POC Glucose 168 H Micro: Microbiology 05/19/22 23:05 Blood Culture (Wb) - Arm Left Blood Culture - Final No growth in 5 days. 05/19/22 22:35 Blood Culture (Wb) - Pic Blood Culture - Final No growth in 5 days. 05/19/22 22:25 Urine Catheter - Bailey Urine Culture - Final Presumptive C albicans 05/14/22 20:05 Sputum, Tracheal Aspirate Gram Stain - Final 05/14/22 20:05 Sputum, Tracheal Aspirate Respiratory Culture - Final Mixed normal respiratory mariano. No Streptococcus pneumoniae, beta-hemolytic Streptococcus or Staphylococcus aureus isolated. 05/11/22 11:50 Blood Culture (Wb) - Right Wrist Blood Culture - Final No growth in 5 days. 05/11/22 11:30 Blood Culture (Wb) #2 - Left Wrist Blood Culture - Final No growth in 5 days. 05/11/22 00:00 Urine Catheter - Bailey Urine Culture - Final Culture exhibits no growth. 05/11/22 19:40 Sputum, Expectorated/Coughed Gram Stain - Final 05/11/22 19:40 Sputum, Expectorated/Coughed Respiratory Culture - Final 05/11/22 21:45 Urine Catheter - Bailey Legionella Antigen - Final 05/11/22 21:45 Urine Catheter - Bailey Streptococcus pneumoniae Antigen (M - Final 05/11/22 11:21 Nasal Secretion SARS-CoV-2 & FLU Antigen (Rapid) - Final Physical Exam Narrative Physical exam: General: Alert, Oriented x3, Cooperative, very frail, on 3 L of oxygen HEENT: Atraumatic Oral: Moist Mucosa Neck: Supple Lungs: Diminished to auscultation Cardiovascular: HS I+II, regular, no murmurs Abdomen: Bowel Sounds Present, Soft, Non Tender Extremities: No edema Skin: No rashes, No breakdown Neurological: Grossly intact Psych/Mental Status: Appropriate Assessment & Plan Assessment/Plan (1) Anemia: QUALIFIERS: Anemia type: unspecified type Qualified Code(s): D64.9 - Anemia, unspecified PLAN: Plan 1. Acute on chronic hypoxic respiratory failure likely secondary to right upper lobe pneumonia/lung failure, COPD exacerbation Remains on home 3 L of oxygen Continue to encourage use of incentive spirometer Continue on prednisone taper [employer] Dispatcher following 2. Shock, likely secondary to hypovolemia/hemorrhagic, resolved, . Blood, urine, sputum/tracheal aspirate, cultures are negative x48 hours Continue to hold diuretics and antihypertensives 3. A. fib with RVR, heart rate is improved, continue oral amiodarone and metoprolol Resumed back on Eliquis, Cardiology following 4. Acute GI bleed secondary to gastric ulcer/angiodysplastic lesions, status post epinephrine injection and heater probe cauterization EGD was done yesterday, 05/26/22 GI following, continue on PPI twice daily, sucralfate 5. Anemia secondary to acute blood loss from probable GI bleed,? Hemoglobin is 7.3, status post 5 units of packed RBCs transfusion Will transfuse another unit of packed RBC and give IV Venofer 6. Elevated LFTs likely secondary to #2, will trend 7.Severe protein calorie malnutrition, compounding and finishing supervisor consulted, continue suppleme nts 8. Rest of her chronic medical conditions including small cell lung CA/CAD status post stent/hyperlipidemia/COPD/osteoporosis/chronic pain/GERD, complicates current medical care for this patient 9. DVT PPx-Eliquis Charges/Coding Multi Select Codes Visit Charges Visit Charges: 92424 Subs Hosp L1
--- NOTE | 2022-05-27 20:13 | PN_ITS ---
Subjective Subjective Patient underwent an upper endoscopy for acute blood loss anemia and was discovered to have peptic ulcer disease and angiodysplasias. Biopsies of the peptic ulcer are pending angiodysplasias were treated with cautery. Objective Data Objective Data Vital Signs: Vital Signs Temp Pulse Resp BP Pulse Ox O2 Del Method O2 Flow Rate 98.5 F 74 18 103/56 L 98 Nasal Cannula 3 05/27/22 19:06 05/27/22 19:06 05/27/22 19:06 05/27/22 19:06 05/27/22 19:06 05/27/22 19:06 05/27/22 19:06 FiO2 3 05/23/22 15:35 Oxygen Flow Rate (L/min) [ 4 AMBULATING with Oxygen #3] Oxygen Flow Rate (L/min) [ 3 AMBULATING with Oxygen #2] Oxygen Flow Rate (L/min) [ 2 AMBULATING with Oxygen #1] Oxygen Flow Rate (L/min) [At 2 REST with Oxygen] Oxygen Flow Rate (L/min) 3 Oxygen Delivery Method Nasal Cannula Weight: 81 lb 9.137 oz Body Mass Index (BMI) 20.5 Intake & Output: Intake and Output for Last 24 Hours 05/25/22 05/26/22 05/27/22 23:59 23:59 23:59 Intake Total 680 / 680 460 / 460 1220 / 1220 Output Total 1320 / 1645 1245 / 1245 1050 / 1050 Balance -640 / -965 -785 / -785 170 / 170 Medical Nutrition Assessment Dietitian: Malnutrition Criteria Met Start: 05/17/22 11:27 Freq: Status: Active Protocol: Document 05/25/22 13:28 (Rec: 05/25/22 13:28 [id number]) Nutrition Malnutrition Evidence of Malnutrition Exists Yes Malnutrition (severe): Acute Illness/Injury Evidenced By Suboptimal Energy Intake ( Severe),Physical Changes ( Severe) Intake Problem Inadequate Oral Intake Etiology related to resp. failure Signs/Symptoms as evidenced by NPO status Status Resolved Problem Clinical Problem Chronic Disease or Condition Related Malnutrition Etiology severe, chronic malnutrition related to inadequate energy intake Signs/Symptoms as evidenced by severe muscle wasting/fat loss evident in orbital, clavicle, acromion, temporal areas per physical exam; estimated energy intake meeting <75% of estimated energy needs > 3 months Status Active Problem Recommendation Dietitian Recommendations/Changes Will continue cardiac/1999 calorie controlled w/ 1250mL fluid restriction per hospitalist; will fortify foods when possible. Will d/c ensure plus high protein 120mL 4x/day w/ medpass as pt is currently refusing. Pt not interested in other ONS at this time. Lab / Micro Data Result Diagrams: 05/27/22 03:47 05/27/22 03:47 Labs: Laboratory Results - last 24 hr 05/26/22 21:39: POC Glucose 158 H 05/27/22 03:47: WBC 6.6, RBC 2.46 L, Hgb 7.3 L, Hct 22.9 L, MCV 93.1, MCH 29.7, MCHC 31.9 L, RDW Std Deviation 48.9 H, RDW Coeff of Surinder 14.6, Plt Count 73 L, MPV 10.8, Immature Gran % (Auto) 0.900, Neut % (Auto) 90.9 H, Lymph % (Auto) 3.5 L, [place] % (Auto) 4.1, Eos % (Auto) 0.6, Baso % (Auto) 0.0, Absolute Neuts (auto) 6.0, Absolute Lymphs (auto) 0.23 L, Nucleated RBC % 0, Differential Comment SCANNED, Platelet Estimate MOD DEC 05/27/22 03:47: Sodium 133 L, Potassium 4.3, Chloride 97 L, Carbon Dioxide 30.0, Anion Gap 6, BUN 22 H, Creatinine 0.39 L, Estim Creat Clear Calc 31.24, Est GFR (MDRD) Af Amer 209, Est GFR (MDRD) Non-Af 173, BUN/Creatinine Ratio 56.8 H, Glucose 90, Calcium 8.4 L, Total Bilirubin 0.40, AST 22, ALT 42, Alkaline Phosphatase 169 H, Total Protein 5.0 L, Albumin 1.7 L, Globulin 3.3, Albumin/Gl obulin Ratio 0.5 L 05/27/22 07:09: POC Glucose 88 05/27/22 11:00: Blood Type O POSITIVE, Antibody Screen NEGATIVE, Crossmatch See Detail 05/27/22 11:18: POC Glucose 105 05/27/22 16:02: POC Glucose 168 H Micro: Microbiology 05/19/22 23:05 Blood Culture (Wb) - Arm Left Blood Culture - Final No growth in 5 days. 05/19/22 22:35 Blood Culture (Wb) - Pic Blood Culture - Final No growth in 5 days. 05/19/22 22:25 Urine Catheter - Bailey Urine Culture - Final Presumptive C albicans 05/14/22 20:05 Sputum, Tracheal Aspirate Gram Stain - Final 05/14/22 20:05 Sputum, Tracheal Aspirate Respiratory Culture - Final Mixed normal respiratory mariano. No Streptococcus pneumoniae, beta-hemolytic Streptococcus or Staphylococcus aureus isolated. 05/11/22 11:50 Blood Culture (Wb) - Right Wrist Blood Culture - Final No growth in 5 days. 05/11/22 11:30 Blood Culture (Wb) #2 - Left Wrist Blood Culture - Final No growth in 5 days. 05/11/22 00:00 Urine Catheter - Bailey Urine Culture - Final Culture exhibits no growth. 05/11/22 19:40 Sputum, Expectorated/Coughed Gram Stain - Final 05/11/22 19:40 Sputum, Expectorated/Coughed Respiratory Culture - Final 05/11/22 21:45 Urine Catheter - Bailey Legionella Antigen - Final 05/11/22 21:45 Urine Catheter - Bailey Streptococcus pneumoniae Antigen (M - Final 05/11/22 11:21 Nasal Secretion SARS-CoV-2 & FLU Antigen (Rapid) - Final Physical Exam Const alert, oriented x3 and no apparent distress Constitutional Narrative: Appears older than stated age General Appearance: cooperative and frail HEENT normocephalic, head/scalp atraumatic, moist oral mucous membranes and oropharynx normal Eyes PERRL, EOMs intact bilaterally, conjunctivae normal and no scleral icterus Neck full ROM, no lymphadenopathy, supple, no JVD and no carotid bruits General: trachea midline Chest Chest: abnormal inspection of the chest increased A-P diameter Resp normal respiratory effort, no retractions, no use of accessory muscles and clear to auscultation bilaterally Resp Narrative: Severely diminished diffusely Auscultation: diminished lung sounds; Negative for rales, rhonchi or wheezes Cardio regular rate, regular rhythm, S1 normal heart sound, S2 normal heart sound, no murmurs, no rub, no gallops, no clicks and no JVD GI normal to inspection, nondistended, normoactive bowel sounds, soft to palpation, non-tender and non-distended GI Narrative: Scaphoid abdomen Extremity no clubbing, cyanosis or edema Extremity Narrative: 2+ pedal pulses Skin no rashes or lesions noted, no wounds, skin turgor normal, no jaundice, no petechiae and no mottling Hair: total alopecia Neuro oriented x3, CN's II-XII intact bilaterally, moves all extremities and no focal motor deficits Neuro Narrative: Severe generalized weakness Sensorium / Orientation: sedated on vent Speech: speech normal Psych cooperative and affect normal Assessment & Plan Assessment/Plan (1) Anemia: QUALIFIERS: Anemia type: unspecified type Qualified Code(s): D64.9 - Anemia, unspecified PLAN: Acute blood loss likely secondary to Eliquis therapy status posttreatment endoscopically. Await H. pylori testing of ulcer, histology of the peptic ulcer. Continue PPI therapy with Protonix 20 mg p.o. twice daily and Carafate ordered. Charges/Coding Visit Charges Inpatient E&M: 09343 Subs Hosp L2
[2022-05-27] MEDS: MELATONIN 3 MG TABLET PO (21:32)
[2022-05-27] MEDS: Atorvastatin Calcium 10 MG Tablet PO (21:35)
[2022-05-27] MEDS: RisperiDONE 1 MG Tablet PO (21:39)
[2022-05-27 23:51] LABS: Bedside Glucose 140 mg/dL (74-106)
[2022-05-28] VITALS (11 sets, daily range): BP systolic 91–115; BP diastolic 50–80; PULSE 53–80; RESP 16–18; TEMP 36.8–37.3; O2SAT 94–98
[2022-05-28 07:05] LABS: Bedside Glucose 86 mg/dL (74-106)
[2022-05-28] MEDS: Ipratropium/Albuterol Sulfate 3 ML AMPUL.NEB INHALATION ×3 (07:31→14:10)
[2022-05-28 08:56] LABS: Absolute Lymphocyte Count 0.27 X10^3/uL (0.83-4.51); Absolute Neutrophil Count 6.2 X10^3/uL (2.0-7.7); Basophil# 0.01 X10^3/uL; Basophil% 0.1 % (0-1); Eosinophil# 0.06 X10^3/uL; Eosinophils% 0.9 % (0-5); Hematocrit 27.4 % (37-47); Hemoglobin 8.9 g/dL (12.0-15.0); Lymphocyte # 0.27 X10^3/ul (0.83-4.51); Lymphocyte % 3.9 % (19-41); Mean Corp Hgb Conc 32.5 g/dL (32-36); Mean Corpuscular Hgb 29.7 pg (27.0-32.0); Mean Corpuscular Volume 91.3 fL (81-99); Mean Platelet Vol. 11.7 fl (6.2-12.0); Monocyte# 0.24 X10^3/uL; Monocyte% 3.5 % (0-10); NRBC Flagged by Analyzer 0.3 % (0-5); Neutrophil # 6.23 X10^3/uL (2.7-7.7); Neutrophil % 90.7 % (47-70); POSITIVE COUNT YES; POSITIVE DIFFERENTIAL YES; Platelet Count 78 K/mm3 (150-450); RBC Distribution Width CV 14.9 % (11.6-14.6); RBC Distribution Width SD 49.7 fl (35.1-43.9); White Blood Count 6.9 K/mm3 (4.4-11.0)
[2022-05-28 08:59] LABS: ALB/GLOB Ratio 0.6 RATIO (0.9-2.4); AST(SGOT) 33 U/L (15-37); Alanine Aminotransfer ALT/SGPT 48 U/L (13-56); Albumin, Serum 1.9 g/dL (3.2-5.0); Alkaline Phosphatase 188 U/L (45-117); Anion Gap 3 (5-15); BUN 23 mg/dL (7-18); BUN/Creat Ratio 63.2 RATIO (10-20); Calcium,Total 8.6 mg/dL (8.5-10.1); Chloride 97 mmol/L (98-107); Creatinine, Serum 0.36 mg/dL (0.55-1.02); EST Glomerular Filtration Rate 185 mL/min (>60); Est Glom Filt Rate - Afr Amer 224 mL/min (>60); Estimated Creatinine Clearance 29.98 ml/min; Globulin 3.4 g/dL (2.2-4.2); Glucose 81 mg/dL (74-106); Potassium 4.1 mmol/L (3.5-5.1); Protein, Total 5.3 g/dL (6.4-8.2); Sodium Level 132 mmol/L (136-145)
[2022-05-28 09:05] LABS: Differential Indicated SCAN CRITERIA MET
[2022-05-28] MEDS: busPIRone 5 MG Tablet 10 MG PO ×2 (09:17→23:29)
[2022-05-28] MEDS: Magnesium Chloride 64 MG Delay Rel.Tablet 128 MG PO (09:17)
[2022-05-28] MEDS: Pantoprazole Sodium 40 MG Tablet PO ×2 (09:17→23:42)
[2022-05-28] MEDS: RisperiDONE 0.5 MG Tablet PO (09:17)
[2022-05-28] MEDS: Amiodarone 200 MG Tablet PO (09:17)
[2022-05-28] MEDS: Senna/Docusate Sodium 1 Tablet 2 TABLET PO (09:17)
[2022-05-28] MEDS: Potassium Chloride Oral Tablet 20 MEQ PO ×2 (09:18→18:02)
[2022-05-28] MEDS: predniSONE 20 MG Tablet PO (09:18)
[2022-05-28] MEDS: Loratadine 10 MG Tablet PO (09:18)
[2022-05-28] MEDS: morphine SR 15 MG Tablet PO ×2 (09:25→23:29)
[2022-05-28] MEDS: oxyCODONE 5 MG Tablet 10 MG PO ×2 (09:34→15:32)
[2022-05-28] MEDS: 0.9% Saline Lock 10 ML Syringe IV (09:35)
[2022-05-28 10:32] LABS: Anisocytosis 1+
[2022-05-28] MEDS: Sucralfate 1 GM Tablet PO ×2 (11:23→15:31)
[2022-05-28 11:55] LABS: Bedside Glucose 121 mg/dL (74-106)
[2022-05-28] MEDS: Sodium Chloride 1 GM Tablet PO ×2 (15:31→23:43)
[2022-05-28] MEDS: Menthol/Lanolin/Calamine/Znox 113 GM Tube 1 APPLIC TOPICAL ×2 (18:02→23:39)
[2022-05-28 18:30] LABS: Bedside Glucose 175 mg/dL (74-106)
[2022-05-28] MEDS: Atorvastatin Calcium 10 MG Tablet PO (23:40)
[2022-05-28] MEDS: MELATONIN 3 MG TABLET PO (23:40)
[2022-05-28] MEDS: RisperiDONE 1 MG Tablet PO (23:41)
[2022-05-29] VITALS (9 sets, daily range): BP systolic 103–133; BP diastolic 55–69; PULSE 60–93; RESP 16–20; TEMP 2.6–36.8; O2SAT 93–99
[2022-05-29] MEDS: oxyCODONE 5 MG Tablet 10 MG PO ×4 (00:03→23:33)
[2022-05-29 01:06] LABS: Bedside Glucose 113 mg/dL (74-106)
[2022-05-29] MEDS: Ipratropium/Albuterol Sulfate 3 ML AMPUL.NEB INHALATION ×3 (06:51→14:52)
[2022-05-29] MEDS: Menthol/Lanolin/Calamine/Znox 113 GM Tube 1 APPLIC TOPICAL ×2 (06:51→23:25)
[2022-05-29 06:58] LABS: Absolute Lymphocyte Count 0.24 X10^3/uL (0.83-4.51); Absolute Neutrophil Count 7.6 X10^3/uL (2.0-7.7); Basophil# 0.01 X10^3/uL; Basophil% 0.1 % (0-1); Eosinophil# 0.05 X10^3/uL; Eosinophils% 0.6 % (0-5); Hematocrit 28.2 % (37-47); Hemoglobin 8.9 g/dL (12.0-15.0); Lymphocyte # 0.24 X10^3/ul (0.83-4.51); Lymphocyte % 2.9 % (19-41); Mean Corp Hgb Conc 31.6 g/dL (32-36); Mean Corpuscular Hgb 29.4 pg (27.0-32.0); Mean Corpuscular Volume 93.1 fL (81-99); Mean Platelet Vol. 11.2 fl (6.2-12.0); Monocyte# 0.31 X10^3/uL; Monocyte% 3.8 % (0-10); NRBC Flagged by Analyzer 0 % (0-5); Neutrophil # 7.56 X10^3/uL (2.7-7.7); Neutrophil % 91.6 % (47-70); POSITIVE COUNT YES; POSITIVE DIFFERENTIAL YES; Platelet Count 71 K/mm3 (150-450); RBC Distribution Width CV 15.1 % (11.6-14.6); RBC Distribution Width SD 50.5 fl (35.1-43.9); Red Blood Count 3.03 M/mm3 (4.2-5.4); White Blood Count 8.3 K/mm3 (4.4-11.0)
[2022-05-29 07:10] LABS: Bedside Glucose 87 mg/dL (74-106)
[2022-05-29 07:11] LABS: Differential Indicated SCAN CRITERIA MET
[2022-05-29 07:29] LABS: ALB/GLOB Ratio 0.5 RATIO (0.9-2.4); AST(SGOT) 37 U/L (15-37); Alanine Aminotransfer ALT/SGPT 57 U/L (13-56); Albumin, Serum 1.8 g/dL (3.2-5.0); Alkaline Phosphatase 215 U/L (45-117); Anion Gap 6 (5-15); BUN 23 mg/dL (7-18); BUN/Creat Ratio 53.5 RATIO (10-20); Calcium,Total 8.6 mg/dL (8.5-10.1); Chloride 100 mmol/L (98-107); Creatinine, Serum 0.43 mg/dL (0.55-1.02); EST Glomerular Filtration Rate 153 mL/min (>60); Est Glom Filt Rate - Afr Amer 185 mL/min (>60); Estimated Creatinine Clearance 30.29 ml/min; Globulin 3.3 g/dL (2.2-4.2); Glucose 88 mg/dL (74-106); Potassium 4.3 mmol/L (3.5-5.1); Protein, Total 5.1 g/dL (6.4-8.2); Sodium Level 135 mmol/L (136-145)
[2022-05-29 07:42] LABS: Anisocytosis 1+
[2022-05-29 07:43] LABS: Platelet Estimate MKD DEC (ADEQ)
[2022-05-29] MEDS: morphine SR 15 MG Tablet PO ×2 (09:35→23:33)
[2022-05-29] MEDS: Sucralfate 1 GM Tablet PO ×2 (09:36→23:20)
[2022-05-29] MEDS: Sodium Chloride 1 GM Tablet PO ×2 (09:36→23:30)
[2022-05-29] MEDS: Potassium Chloride Oral Tablet 20 MEQ PO ×2 (09:37→23:21)
[2022-05-29] MEDS: busPIRone 5 MG Tablet 10 MG PO ×2 (09:38→23:29)
[2022-05-29] MEDS: Loratadine 10 MG Tablet PO (09:39)
[2022-05-29] MEDS: Pantoprazole Sodium 40 MG Tablet PO ×2 (09:39→23:29)
[2022-05-29] MEDS: Amiodarone 200 MG Tablet PO (09:39)
[2022-05-29] MEDS: Magnesium Chloride 64 MG Delay Rel.Tablet 128 MG PO (09:39)
[2022-05-29] MEDS: predniSONE 20 MG Tablet PO (09:42)
[2022-05-29] MEDS: RisperiDONE 0.5 MG Tablet PO (09:43)
[2022-05-29] MEDS: 0.9% Saline Lock 10 ML Syringe IV (10:30)
--- NOTE | 2022-05-29 16:45 | NURSING ---
Pt requested to take carafate and K-dur after dinner
[2022-05-29] MEDS: Insulin Lispro 100 UNIT/ML INSULN.PEN SC (17:24)
--- NOTE | 2022-05-29 17:30 | PCM.PN.HOSP ---
Subjective Subjective Late entry note: Patient was seen and examined on the morning of 05/28/2022. It was anticipated that she will be discharged. She however was not discharged. She denied any new complaints. Post transfusion hemoglobin is 8.9. No acute events overnight. Objective Data Objective Data Vital Signs: Vital Signs Temp Pulse Resp BP Pulse Ox O2 Del Method O2 Flow Rate 97.9 F 60 16 108/60 93 Nasal Cannula 3.5 05/29/22 10:00 05/29/22 14:54 05/29/22 14:54 05/29/22 10:00 05/29/22 10:52 05/29/22 10:52 05/29/22 10:52 FiO2 3 05/23/22 15:35 Oxygen Flow Rate (L/min) [ 4 AMBULATING with Oxygen #3] Oxygen Flow Rate (L/min) [ 3 AMBULATING with Oxygen #2] Oxygen Flow Rate (L/min) [ 2 AMBULATING with Oxygen #1] Oxygen Flow Rate (L/min) [At 2 REST with Oxygen] Oxygen Flow Rate (L/min) 3.5 Oxygen Delivery Method Nasal Cannula Weight: 38.3 kg Body Mass Index (BMI) 20.5 Intake & Output: Intake and Output for Last 24 Hours 05/27/22 05/28/22 05/29/22 23:59 23:59 23:59 Intake Total 1220 / 1820 2130 / 2130 Output Total 1050 / 1050 Balance 170 / 770 2130 / 2130 Medical Nutrition Assessment Dietitian: Malnutrition Criteria Met Start: 05/17/22 11:27 Freq: Status: Active Protocol: Document 05/25/22 13:28 (Rec: 05/25/22 13:28 [id number]) Nutrition Malnutrition Evidence of Malnutrition Exists Yes Malnutrition (severe): Acute Illness/Injury Evidenced By Suboptimal Energy Intake ( Severe),Physical Changes ( Severe) Intake Problem Inadequate Oral Intake Etiology related to resp. failure Signs/Symptoms as evidenced by NPO status Status Resolved Problem Clinical Problem Chronic Disease or Condition Related Malnutrition Etiology severe, chronic malnutrition related to inadequate energy intake Signs/Symptoms as evidenced by severe muscle wasting/fat loss evident in orbital, clavicle, acromion, temporal areas per physical exam; estimated energy intake meeting <75% of estimated energy needs > 3 months Status Active Problem Recommendation Dietitian Recommendations/Changes Will continue cardiac/2000 calorie controlled w/ 1250mL fluid restriction per hospitalist; will fortify foods when possible. Will d/c ensure plus high protein 120mL 4x/day w/ medpass as pt is currently refusing. Pt not interested in other ONS at this time. Lab / Micro Data Result Diagrams: 05/29/22 06:10 05/29/22 06:10 Labs: Laboratory Results - last 24 hr 05/28/22 17:58: POC Glucose 175 H 05/28/22 23:29: POC Glucose 113 H 05/29/22 06:10: WBC 8.3, RBC 3.03 L, Hgb 8.9 L, Hct 28.2 L, MCV 93.1, MCH 29.4, MCHC 31.6 L, RDW Std Deviation 50.5 H, RDW Coeff of Surinder 15.1 H, Plt Count 71 L, MPV 11.2, Immature Gran % (Auto) 1.000 H, Neut % (Auto) 91.6 H, Lymph % (Auto) 2.9 L, [place] % (Auto) 3.8, Eos % (Auto) 0.6, Baso % (Auto) 0.1, Absolute Neuts (auto) 7.6, Absolute Lymphs (auto) 0.24 L, Nucleated RBC % 0, Platelet Estimate MKD DEC, Anisocytosis 1+ 05/29/22 06:10: Sodium 135 L, Potassium 4.3, Chloride 100, Carbon Dioxide 29.0, Anion Gap 6, BUN 23 H, Creatinine 0.43 L, Estim Creat Clear Calc 30.29, Est GFR (MDRD) Af Amer 185, Est GFR (MDRD) Non-Af 153, BUN/Creatinine Ratio 53.5 H, Glucose 88, Calcium 8.6, Total Bilirubin 0.40, AST 37, ALT 57 H, Alkaline Phosphatase 215 H, Total Protein 5.1 L, Albumin 1.8 L, Globulin 3.3, Albumin/Globulin Ratio 0.5 L 05/29/22 06:46: POC Glucose 87 Micro: Microbiology 05/28/22 18:27 Stool Stool Occult Blood (RODRIGUE) - Final Occult Blood Positive 05/19/22 23:05 Blood Culture (Wb) - Arm Left Blood Culture - Final No growth in 5 days. 05/19/22 22:35 Blood Culture (Wb) - Pic Blood Culture - Final No growth in 5 days. 05/19/22 22:25 Urine Catheter - Bailey Urine Culture - Final Presumptive C albicans 05/14/22 20:05 Sputum, Tracheal Aspirate Gram Stain - Final 05/14/22 20:05 Sputum, Tracheal Aspirate Respiratory Culture - Final Mixed normal respiratory mariano. No Streptococcus pneumoniae, beta-hemolytic Streptococcus or Staphylococcus aureus isolated. 05/11/22 11:50 Blood Culture (Wb) - Right Wrist Blood Culture - Final No growth in 5 days. 05/11/22 11:30 Blood Culture (Wb) #2 - Left Wrist Blood Culture - Final No growth in 5 days. 05/11/22 00:00 Urine Catheter - Bailey Urine Culture - Final Culture exhibits no growth. 05/11/22 19:40 Sputum, Expectorated/Coughed Gram Stain - Final 05/11/22 19:40 Sputum, Expectorated/Coughed Respiratory Culture - Final 05/11/22 21:45 Urine Catheter - Bailey Legionella Antigen - Final 05/11/22 21:45 Urine Catheter - Bailey Streptococcus pneumoniae Antigen (M - Final 05/11/22 11:21 Nasal Secretion SARS-CoV-2 & FLU Antigen (Rapid) - Final Physical Exam Narrative Physical exam: General: Alert, Oriented x3, Cooperative, very frail, on 3 L of oxygen HEENT: Atraumatic Oral: Moist Mucosa Neck: Supple Lungs: Diminished to auscultation Cardiovascular: HS I+II, regular, no murmurs Abdomen: Bowel Sounds Present, Soft, Non Tender Extremities: No edema Skin: No rashes, No breakdown Neurological: Grossly intact Psych/Mental Status: Appropriate Assessment & Plan Assessment/Plan (1) Anemia: QUALIFIERS: Anemia type: unspecified type Qualified Code(s): D64.9 - Anemia, unspecified PLAN: Plan 1. Acute on chronic hypoxic respiratory failure likely secondary to right upper lobe pneumonia/lung failure, COPD exacerbation Remains on home 3 L of oxygen Continue to encourage use of incentive spirometer Continue on prednisone taper Legal Document Assistant following 2. Shock, likely secondary to hypovolemia/hemorrhagic, resolved, . Blood, urine, sputum/tracheal aspirate, cultures are negative x48 hours Continue to hold diuretics and antihypertensives 3. A. fib with RVR, heart rate is improved, continue oral amiodarone and metoprolol Resumed back on Eliquis, Cardiology following 4. Acute GI bleed secondary to gastric ulcer/angiodysplastic lesions, status post epinephrine injection and heater probe cauterization EGD was done yesterday, 05/26/22 GI following, continue on PPI twice daily, sucralfate 5. Anemia secondary to acute blood loss from probable GI bleed,? Hemoglobin is 7.3, status post 5 units of packed RBCs transfusion Will transfuse another unit of packed RBC and give IV Venofer 6. Elevated LFTs likely secondary to #2, will trend 7.Severe protein calorie malnutrition, corporate security officer consulted, continue supplements 8. Rest of her chronic medical conditions including small cell lung CA/CAD status post stent/hyperlipidemia/COPD/osteoporosis/chronic pain/GERD, complicates current medical care for this patient 9. DVT PPx-Eliquis Charges/Coding Visit Charges Inpatient E&M: 44944 [facility] Hosp L1
--- NOTE | 2022-05-29 17:32 | PCM.PN.HOSP ---
Subjective Subjective Follow-up on hypotension/pneumonia/acute on chronic respiratory failure/shock: Patient was seen and examined. No acute events overnight. Awaiting on discharge planning Objective Data Objective Data Vital Signs: Vital Signs Temp Pulse Resp BP Pulse Ox O2 Del Method O2 Flow Rate 97.9 F 60 16 108/60 93 Nasal Cannula 3.5 05/29/22 10:00 05/29/22 14:54 05/29/22 14:54 05/29/22 10:00 05/29/22 10:52 05/29/22 10:52 05/29/22 10:52 FiO2 3 05/23/22 15:35 Oxygen Flow Rate (L/min) [ 4 AMBULATING with Oxygen #3] Oxygen Flow Rate (L/min) [ 3 AMBULATING with Oxygen #2] Oxygen Flow Rate (L/min) [ 2 AMBULATING with Oxygen #1] Oxygen Flow Rate (L/min) [At 2 REST with Oxygen] Oxygen Flow Rate (L/min) 3.5 Oxygen Delivery Method Nasal Cannula Weight: 38.3 kg Body Mass Index (BMI) 20.5 Intake & Output: Intake and Output for Last 24 Hours 05/27/22 05/28/22 05/29/22 23:59 23:59 23:59 Intake Total 1220 / 1820 0 / 2130 Output Total 1050 / 1050 Balance 170 / 770 2129 / 0 Medical Nutrition Assessment Dietitian: Malnutrition Criteria Met Start: 05/17/22 11:27 Freq: Status: Active Protocol: Document 05/25/22 13:28 (Rec: 05/25/22 13:28 [id number]) Nutrition Malnutrition Evidence of Malnutrition Exists Yes Malnutrition (severe): Acute Illness/Injury Evidenced By Suboptimal Energy Intake ( Severe),Physical Changes ( Severe) Intake Problem Inadequate Oral Intake Etiology related to resp. failure Signs/Symptoms as evidenced by NPO status Status Resolved Problem Clinical Problem Chronic Disease or Condition Related Malnutrition Etiology severe, chronic malnutrition related to inadequate energy intake Signs/Symptoms as evidenced by severe muscle wasting/fat loss evident in orbital, clavicle, acromion, temporal areas per physical exam; estimated energy intake meeting <75% of estimated energy needs > 3 months Status Active Problem Recommendation Dietitian Recommendations/Changes Will continue cardiac/2000 calorie controlled w/ 1250mL fluid restriction per hospitalist; will fortify foods when possible. Will d/c ensure plus high protein 120mL 4x/day w/ medpass as pt is currently refusing. Pt not interested in other ONS at this time. Lab / Micro Data Result Diagrams: 05/29/22 06:10 05/29/22 06:10 Labs: Laboratory Results - last 24 hr 05/28/22 17:58: POC Glucose 175 H 05/28/22 23:29: POC Glucose 113 H 05/29/22 06:10: WBC 8.3, RBC 3.03 L, Hgb 8.9 L, Hct 28.2 L, MCV 93.1, MCH 29.4, MCHC 31.6 L, RDW Std Deviation 50.5 H, RDW Coeff of Surinder 15.1 H, Plt Count 71 L, MPV 11.2, Immature Gran % (Auto) 1.000 H, Neut % (Auto) 91.6 H, Lymph % (Auto) 2.9 L, [place] % (Auto) 3.8, Eos % (Auto) 0.6, Baso % (Auto) 0.1, Absolute Neuts (auto) 7.6, Absolute Lymphs (auto) 0.24 L, Nucleated RBC % 0, Platelet Estimate MKD DEC, Anisocytosis 1+ 05/29/22 06:10: Sodium 135 L, Potassium 4.3, Chloride 100, Carbon Dioxide 29.0, Anion Gap 6, BUN 23 H, Creatinine 0.43 L, Estim Creat Clear Calc 30.29, Est GFR (MDRD) Af Amer 185, Est GFR (MDRD) Non-Af 153, BUN/Creatinine Ratio 53.5 H, Glucose 88, Calcium 8.6, Total Bilirubin 0.40, AST 37, ALT 57 H, Alkaline Phosphatase 215 H, Total Protein 5.1 L, Albumin 1.8 L, Globulin 3.3, Albumin/Globulin Ratio 0.5 L 05/29/22 06:46: POC Glucose 87 Micro: Microbiology 05/28/22 18:27 Stool Stool Occult Blood (RODRIGUE) - Final Occult Blood Positive 05/19/22 23:05 Blood Culture (Wb) - Arm Left Blood Culture - Final No growth in 5 days. 05/19/22 22:35 Blood Culture (Wb) - Pic Blood Culture - Final No growth in 5 days. 05/19/22 22:25 Urine Catheter - Bailey Urine Culture - Final Presumptive C albicans 05/14/22 20:05 Sputum, Tracheal Aspirate Gram Stain - Final 05/14/22 20:05 Sputum, Tracheal Aspirate Respiratory Culture - Final Mixed normal respiratory mariano. No Streptococcus pneumoniae, beta-hemolytic Streptococcus or Staphylococcus aureus isolated. 05/11/22 11:50 Blood Culture (Wb) - Right Wrist Blood Culture - Final No growth in 5 days. 05/11/22 11:30 Blood Culture (Wb) #2 - Left Wrist Blood Culture - Final No growth in 5 days. 05/11/22 00:00 Urine Catheter - Bailey Urine Culture - Final Culture exhibits no growth. 05/11/22 19:40 Sputum, Expectorated/Coughed Gram Stain - Final 05/11/22 19:40 Sputum, Expectorated/Coughed Respiratory Culture - Final 05/11/22 21:45 Urine Catheter - Bailey Legionella Antigen - Final 05/11/22 21:45 Urine Catheter - Bailey Streptococcus pneumoniae Antigen (M - Final 05/11/22 11:21 Nasal Secretion SARS-CoV-2 & FLU Antigen (Rapid) - Final Physical Exam Narrative Physical exam: General: Alert, Oriented x3, Cooperative, very frail, on 3 L of oxygen HEENT: Atraumatic Oral: Moist Mucosa Neck: Supple Lungs: Diminished to auscultation Cardiovascular: HS I+II, regular, no murmurs Abdomen: Bowel Sounds Present, Soft, Non Tender Extremities: No edema Skin: No rashes, No breakdown Neurological: Grossly intact Psych/Mental Status: Appropriate Assessment & Plan Assessment/Plan (1) Anemia: QUALIFIERS: Anemia type: unspecified type Qualified Code(s): D64.9 - Anemia, unspecified PLAN: Plan 1. Acute on chronic hypoxic respiratory failure likely secondary to right upper lobe pneumonia/lung failure, COPD exacerbation Remains on home 3 L of oxygen Continue to encourage use of incentive spirometer Continue on prednisone taper Rehab Tech following 2. Shock, likely secondary to hypovolemia/hemorrhagic, resolved, . Blood, urine, sputum/tracheal aspirate, cultures are negative x48 hours Continue to hold diuretics and antihypertensives 3. A. fib with RVR, heart rate is improved, continue oral amiodarone and metoprolol Resumed back on Eliquis, Cardiology following 4. Acute GI bleed secondary to gastric ulcer/angiodysplastic lesions, status post epinephrine injection and heater probe cauterization EGD was done yesterday, 05/26/22 GI following, continue on PPI twice daily, sucralfate 5. Anemia secondary to acute blood loss from probable GI bleed,? Hemoglobin is 8.9, status post 6 units of packed RBCs transfusion Will transfuse another unit of packed RBC and give IV Venofer 6. 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 Rest of her chronic medical conditions including small cell lung CA/CAD status post stent/hyperlipidemia/COPD/osteoporosis/chronic pain/GERD, complicates current medical care for this patient 9. DVT PPx-Eliquis Disposition: Awaiting on discharge to [facility] facility Charges/Coding Visit Charges Inpatient E&M: 29961 Subs Hosp L1
--- NOTE | 2022-05-29 19:59 | NURSING ---
Pt has requested not to have her vital signs or take any of her medications this evening unitl 2300. Pt is resting comfortably in bed, no signs of distress, assessment is complete and unremarkeable.
[2022-05-29 20:06] LABS: Bedside Glucose 151 mg/dL (74-106)
[2022-05-29] MEDS: MELATONIN 3 MG TABLET PO (23:27)
[2022-05-29] MEDS: RisperiDONE 1 MG Tablet PO (23:27)
[2022-05-29] MEDS: Atorvastatin Calcium 10 MG Tablet PO (23:28)
[2022-05-30] LABS: Bedside Glucose 128 mg/dL (74-106)
[2022-05-30 06:28] VITALS: BP 93/73; PULSE 89; RESP 20; TEMP 36.8; O2SAT 99
[2022-05-30] MEDS: Menthol/Lanolin/Calamine/Znox 113 GM Tube 1 APPLIC TOPICAL ×3 (06:33→21:54)
[2022-05-30] MEDS: oxyCODONE 5 MG Tablet 10 MG PO ×2 (06:41→16:26)
[2022-05-30 06:55] LABS: Bedside Glucose 115 mg/dL (74-106)
[2022-05-30 07:07] VITALS: PULSE 68; RESP 18; O2SAT 96
[2022-05-30] MEDS: Ipratropium/Albuterol Sulfate 3 ML AMPUL.NEB INHALATION (07:07)
[2022-05-30 09:11] LABS: ALB/GLOB Ratio 0.6 RATIO (0.9-2.4); AST(SGOT) 38 U/L (15-37); Alanine Aminotransfer ALT/SGPT 58 U/L (13-56); Albumin, Serum 1.9 g/dL (3.2-5.0); Alkaline Phosphatase 212 U/L (45-117); Anion Gap 10 (5-15); BUN 20 mg/dL (7-18); BUN/Creat Ratio 51.5 RATIO (10-20); Calcium,Total 8.8 mg/dL (8.5-10.1); Chloride 94 mmol/L (98-107); Creatinine, Serum 0.39 mg/dL (0.55-1.02); EST Glomerular Filtration Rate 172 mL/min (>60); Est Glom Filt Rate - Afr Amer 208 mL/min (>60); Estimated Creatinine Clearance 29.03 ml/min; Globulin 3.3 g/dL (2.2-4.2); Glucose 105 mg/dL (74-106); Potassium 4.1 mmol/L (3.5-5.1); Protein, Total 5.2 g/dL (6.4-8.2); Sodium Level 133 mmol/L (136-145)
[2022-05-30 10:39] VITALS: BP 135/78; PULSE 85; RESP 16; TEMP 36.7; O2SAT 96
[2022-05-30] MEDS: Pantoprazole Sodium 40 MG Tablet PO ×2 (10:43→21:44)
[2022-05-30] MEDS: Amiodarone 200 MG Tablet PO (10:44)
[2022-05-30] MEDS: Loratadine 10 MG Tablet PO (10:44)
[2022-05-30] MEDS: Sucralfate 1 GM Tablet PO ×2 (10:44→16:27)
[2022-05-30] MEDS: predniSONE 20 MG Tablet PO (10:45)
[2022-05-30] MEDS: RisperiDONE 0.5 MG Tablet PO (10:45)
[2022-05-30] MEDS: busPIRone 5 MG Tablet 10 MG PO ×2 (10:45→21:43)
[2022-05-30] MEDS: morphine SR 15 MG Tablet PO ×2 (10:50→21:43)
[2022-05-30] MEDS: Potassium Chloride Oral Tablet 20 MEQ PO ×2 (10:51→16:26)
[2022-05-30 11:25] LABS: Bedside Glucose 113 mg/dL (74-106)
--- NOTE | 2022-05-30 12:31 | PN.HOSP_ITS ---
Subjective Subjective Patient is a 72-year-old lady who has been on admission for almost 19 days following acute on chronic hypoxic respiratory failure secondary to right upper lobe pneumonia COPD with acute exacerbation resulting in patient going on the vent with subsequent extubation and reintubation and extubation. Hospital stay complicated by GI bleed underwent EGD found to have gastric ulcer angiodysplastic lesion status post epinephrine injection and heater probe cauterization. Objective Data Objective Data Vital Signs: Vital Signs Temp Pulse Resp BP Pulse Ox O2 Del Method O2 Flow Rate 98.0 F 85 16 135/78 H 96 Nasal Cannula 3.5 05/30/22 10:39 05/30/22 10:39 05/30/22 10:39 05/30/22 10:39 05/30/22 10:39 05/30/22 10:39 05/30/22 10:39 FiO2 3 05/23/22 15:35 Oxygen Flow Rate (L/min) [ 4 AMBULATING with Oxygen #3] Oxygen Flow Rate (L/min) [ 3 AMBULATING with Oxygen #2] Oxygen Flow Rate (L/min) [ 2 AMBULATING with Oxygen #1] Oxygen Flow Rate (L/min) [At 2 REST with Oxygen] Oxygen Flow Rate (L/min) 3.5 Oxygen Delivery Method Nasal Cannula Weight: 36.7 kg Body Mass Index (BMI) 20.5 Intake & Output: Intake and Output for Last 24 Hours 05/28/22 05/29/22 05/30/22 23:59 23:59 23:59 Intake Total 2130 / 2130 270 / 270 Balance 2130 / 2130 270 / 270 Medical Nutrition Assessment Dietitian: Malnutrition Criteria Met Start: 05/17/22 11:27 Freq: Status: Active Protocol: Document 05/25/22 13:28 (Rec: 05/25/22 13:28 [id number]) Nutrition Malnutrition Evidence of Malnutrition Exists Yes Malnutrition (severe): Acute Illness/Injury Evidenced By Suboptimal Energy Intake ( Severe),Physical Changes ( Severe) Intake Problem Inadequate Oral Intake Etiology related to resp. failure Signs/Symptoms as evidenced by NPO status Status Resolved Problem Clinical Problem Chronic Disease or Condition Related Malnutrition Etiology severe, chronic malnutrition related to inadequate energy intake Signs/Symptoms as evidenced by severe muscle wasting/fat loss evident in orbital, clavicle, acromion, temporal areas per physical exam; estimated energy intake meeting <75% of estimated energy needs > 3 months Status Active Problem Recommendation Dietitian Recommendations/Changes Will continue calorie controlled w/ 1250mL fluid restriction per hospitalist; will fortify foods when possible. Will d/c ensure plus high protein 120mL 4x/day w/ medpass as pt is currently refusing. Pt not interested in other ONS at this time. Lab / Micro Data Result Diagrams: 05/29/22 06:10 05/30/22 08:35 Labs: Laboratory Results - last 24 hr 05/29/22 17:03: POC Glucose 151 H 05/29/22 23:19: POC Glucose 128 H 05/30/22 06:32: POC Glucose 115 H 05/30/22 08:35: Sodium 133 L, Potassium 4.1, Chloride 94 L, Carbon Dioxide 29.0, Anion Gap 10, BUN 20 H, Creatinine 0.39 L, Estim Creat Clear Calc 29.03, Est GFR (MDRD) Af Amer 208, Est GFR (MDRD) Non-Af 172, BUN/Creatinine Ratio 51.5 H, Glucose 105, Calcium 8.8, Total Bilirubin 0.40, AST 38 H, ALT 58 H, Alkaline Phosphatase 212 H, Total Protein 5.2 L, Albumin 1.9 L, Globulin 3.3, [place] min/Globulin Ratio 0.6 L 05/30/22 10:53: POC Glucose 113 H Micro: Microbiology 05/28/22 18:27 Stool Stool Occult Blood (RODRIGUE) - Final Occult Blood Positive 05/19/22 23:05 Blood Culture (Wb) - Arm Left Blood Culture - Final No growth in 5 days. 05/19/22 22:35 Blood Culture (Wb) - Pic Blood Culture - Final No growth in 5 days. 05/19/22 22:25 Urine Catheter - Bailey Urine Culture - Final Presumptive C albicans 05/14/22 20:05 Sputum, Tracheal Aspirate Gram Stain - Final 05/14/22 20:05 Sputum, Tracheal Aspirate Respiratory Culture - Final Mixed normal respiratory mariano. No Streptococcus pneumoniae, beta-hemolytic Streptococcus or Staphylococcus aureus isolated. 05/11/22 11:50 Blood Culture (Wb) - Right Wrist Blood Culture - Final No growth in 5 days. 05/11/22 11:30 Blood Culture (Wb) #2 - Left Wrist Blood Culture - Final No growth in 5 days. 05/11/22 00:00 Urine Catheter - Bailey Urine Culture - Final Culture exhibits no growth. 05/11/22 19:40 Sputum, Expectorated/Coughed Gram Stain - Final 05/11/22 19:40 Sputum, Expectorated/Coughed Respiratory Culture - Final 05/11/22 21:45 Urine Catheter - Bailey Legionella Antigen - Final 05/11/22 21:45 Urine Catheter - Bailey Streptococcus pneumoniae Antigen (M - Final 05/11/22 11:21 Nasal Secretion SARS-CoV-2 & FLU Antigen (Rapid) - Final Physical Exam Narrative GENERAL: cooperative but frail looking HEENT: Atraumatic; normocephalic EYES; Anicteric, Normal Conjunctiva NECK; supple, normal thyroid, RESPIRATORY: Diminished to auscultation CARDIOVASCULAR: Regular S1 S2, GI: soft, normoactive bowel sounds, : No Renal angle tenderness; EXTREMITIES: No edema, no clubbing, MUSCULOSKELETAL: no muscle wasting NEURO: Awake; no lateralizing signs. SKIN: No Rash PSYCH; Flat affect Assessment & Plan Assessment/Plan (1) Anemia: QUALIFIERS: Anemia type: unspecified type Qualified Code(s): D64.9 - Anemia, unspecified PLAN: Plan Patient is a 72-year-old lady who has been on admission for almost 19 days following acute on chronic hypoxic respiratory failure secondary to right upper lobe pneumonia COPD with acute exacerbation resulting in patient going on the vent with subsequent extubation and reintubation and extubation. Hospital stay complicated by GI bleed underwent EGD found to have gastric ulcer angio dysplastic lesion status post epinephrine injection and heater probe cauterization. 1. Acute on chronic hypoxic respiratory failure ? Secondary to right upper lobe pneumonia with COPD exacerbation ? Patient was intubated extubated reintubated and subsequently extubated with treatment of underlying condition 2. Shock ? Secondary to pneumonia as well as hypovolemic and hemorrhagic shock treated appropriately resolved 3. COPD with acute exacerbation ? Treated with systemic steroid as well as bronchodilator treatment resolved 4. Acute anemia secondary to acute blood loss anemia from upper GI bleed ? Patient underwent EGD on 05/26/2022 which demonstrated gastric ulcer/angiodysplastic lesion underwent epinephrine injection and heater probe cauterization subsequently monitoring with daily H&H 5. Severe protein calorie malnutrition ? Secondary to patient multiple medical comorbidities. Consult placed to dietitian 6. Coronary artery disease ? With previous PCI currently stable 7. Small cell lung CA ? Apparently in remission patient is followed by chemo as outpatient 8. Chronic hyponatremia ? Secondary to SIADH patient was on salt tablet prior to his admission 9. Peripheral arterial disease ? Per history. Patient has undergone previous aortofemoral bypass 10. Acute on chronic congestive heart failure ? Echo obtained during hospital stay demonstrated EF of 35%. Patient managed previously with diuretics 11. Osteoporosis ? Patient is on alendronate as outpatient 12. DVT prophylaxis ? Patient was on Eliquis held in view of upper GI bleed 13. Physical deconditioning - Requested for PT OT eval and social media marketing specialist to assist with discharge planning Total time spent evaluating patient review of labs subsequent adjustment of management orders and discussion with other providers involved with patient's care; 38-minute Charges/Coding Visit Charges Inpatient E&M: 35574 Subs Hosp L2
--- NOTE | 2022-05-30 12:53 | PN.CARD_ITS ---
Subjective Subjective Patient appears to be resting comfortably at this time. She denies any palpitations or rapid rates. She denies any ongoing chest discomfort or difficulty breathing. She complains of a sore back which requires her to lie with her feet up. Objective Data Vital Signs: Vital Signs Temp Pulse Resp BP Pulse Ox O2 Del Method O2 Flow Rate 98.0 F 85 16 135/78 H 96 Nasal Cannula 3.5 05/30/22 10:39 05/30/22 10:39 05/30/22 10:39 05/30/22 10:39 05/30/22 10:39 05/30/22 10:39 05/30/22 10:39 FiO2 3 05/23/22 15:35 Oxygen Flow Rate (L/min) [ 4 AMBULATING with Oxygen #3] Oxygen Flow Rate (L/min) [ 3 AMBULATING with Oxygen #2] Oxygen Flow Rate (L/min) [ 2 AMBULATING with Oxygen #1] Oxygen Flow Rate (L/min) [At 2 REST with Oxygen] Oxygen Flow Rate (L/min) 3.5 Oxygen Delivery Method Nasal Cannula Weight: 80 lb 14.554 oz Body Mass Index (BMI) 20.5 Intake & Output: Intake and Output for Last 24 Hours 05/28/22 05/29/22 05/30/22 23:59 23:59 23:59 Intake Total 2130 / 2130 270 / 270 Balance 2130 / 2130 270 / 270 Lab / Micro Data Result Diagrams: 05/29/22 06:10 05/30/22 08:35 Labs: Laboratory Results - last 24 hr 05/29/22 17:03: POC Glucose 151 H 05/29/22 23:19: POC Glucose 128 H 05/30/22 06:32: POC Glucose 115 H 05/30/22 08:35: Sodium 133 L, Potassium 4.1, Chloride 94 L, Carbon Dioxide 29.0, Anion Gap 10, BUN 20 H, Creatinine 0.39 L, Estim Creat Clear Calc 29.03, Est GFR (MDRD) Af Amer 208, Est GFR (MDRD) Non-Af 172, BUN/Creatinine Ratio 51.5 H, Glucose 105, Calcium 8.8, Total Bilirubin 0.40, AST 38 H, ALT 58 H, Alkaline Phosphatase 212 H, Total Protein 5.2 L, Albumin 1.9 L, Globulin 3.3, Albumin/Globulin Ratio 0.6 L 05/30/22 10:53: POC Glucose 113 H Cardiology Labs/Tests 05/30/22 08:35: Sodium 133 L, Potassium 4.1, Chloride 94 L, Carbon Dioxide 29.0, Anion Gap 10, BUN 20 H, Creatinine 0.39 L, Est GFR (MDRD) Af Amer 208, Est GFR (MDRD) Non-Af 172, BUN/Creatinine Ratio 51.5 H, Glucose 105, Calcium 8.8, Total Bilirubin 0.40 Rhythm: Sinus rhythm Physical Exam Const alert, oriented x3 and no apparent distress Constitutional Narrative: Wearing O2 nasal cannula Orientation / Consciousness: awake HEENT normocephalic, head/scalp atraumatic and hearing grossly normal bilaterally Eyes PERRL, EOMs intact bilaterally, conjunctivae normal and no scleral icterus Neck full ROM, supple and no JVD Resp normal respiratory effort Resp Narrative: No acute rales or rhonchi at this time. Cardio regular rate, regular rhythm, S1 normal heart sound and S2 normal heart sound Heart Sounds: murmur systolic II/ soft mid left sternal border GI normal to inspection, nondistended, normoactive bowel sounds Extremity no pedal edema Skin no rashes or lesions noted Assessment & Plan Assessment/Plan (1) SVT (supraventricular tachycardia): PLAN: The patient has a history of SVT. Since her most recent episode of PAF/flutter it appears she is remaining in sinus rhythm at this time. She has been without rate control medication based upon concerns of her hypotension. If her blood pressure demonstrates stable blood pressures and her rate does need assistance with rate control medicine then consideration could be given to restarting medication such as her beta-blockers. She is continuing her antiarrhythmic therapy with amiodarone. She is not on anticoagulant therapy secondary to concerns of her anemia and requirement for multiple PRBC transfusions. (2) Paroxysmal atrial fibrillation: PLAN: The patient has a history of PAF. She did have recurrent PAF/flutter. At the present time she is noted to be back in sinus rhythm. She will continue medical management as deemed appropriate with respect to rate control therapy as needed and as she is able based upon her blood pressure recordings. She is continuing her antiarrhythmic therapy with amiodarone at 200 mg p.o. daily. Her anticoagulation therapy has been on hold secondary to her anemia. (3) Wide-complex tachycardia: PLAN: The patient has had episodes of wide-complex tachycardia. There is concerned based upon review of her previous cardiac rhythm strips that this may be a form of atrial fibrillation with aberrancy. At the same time she also has evidence of sinus rhythm with wide QRS appearing compatible with aberrancy. She will continue her antiarrhythmic therapy with her amiodarone. (4) CAD (coronary artery disease): PLAN: The patient has a history of CAD. The details are unknown. At the moment she will continue medical management as best as possible. Ideally this would include agents such as aspirin, nitrates if needed, potentially beta-blockers, lipid-lowering agents, etc. She is not currently on antiplatelet therapy or anticoagulant therapy secondary to her GI bleed. She has not required therapy with nitrates at this time. Her beta-blockers have been on hold secondary to concerns of her lower blood pressures. She is continuing her statin therapy with atorvastatin. (5) S/P PTCA (percutaneous transluminal coronary angioplasty): PLAN: The patient is reported as having a history of previous PCI at an outside institution. Again the details are unknown. She will continue medical therapy. At the moment this includes her atorvastatin therapy. (6) Cardiomyopathy: PLAN: The patient has a history of a previous transient cardiomyopathy. Her most recent echocardiogram was reviewed. Her overall LV systolic function/LVEF appears to have improved. It appears the patient has demonstrated when she has her tachycardia/tachydysrhythmia that her LV systolic function/LVEF declines and when she is back in a sinus rhythm with improved rate control her LV systolic function/LVEF improves. At the moment she appears without any acute symptoms of ongoing CHF or pulmonary edema. Again, ideally, would be reasonable to have her on medical management such as beta-blockers and afterload reducing agents such as RENAE inhibitor's or ARB's or Entresto. These medications that can lower her blood pressure have been on hold secondary to her lower pressures. (7) Cardiac murmur: PLAN: She does have a cardiac murmur. This may be secondary to a combination of her underlying noncardiac medical conditions including her anemia, superimposed upon her echocardiographic findings of underlying valvular heart related issues especially with respect to an element of calcification of the aortic valve. (8) Pneumonia: QUALIFIERS: Pneumonia type: due to Pneumococcus Laterality: right Lung location: middle lobe of lung Qualified Code(s): J13 - Pneumonia due to Streptococcus pneumoniae PLAN: The patient is being treated for underlying pneumonia superimposed upon her history of lung carcinoma. She continues under evaluation care per internal medicine and pulmonology/critical care medicine. She has been on antibiotic therapy. (9) History of lung cancer: PLAN: The patient has a history of lung carcinoma. She will continue evaluation care per hematology and oncology. Apparently there has been discussions with the patient regarding the possibility of palliative/hospice care. She has declined evaluation by palliative/hospice care in the past. (10) Anemia: QUALIFIERS: Anemia type: unspecified type Qualified Code(s): D64.9 - Anemia, unspecified PLAN: The patient remains with anemia. She has subsequently received additional PRBCs. Her hemoglobin levels have subsequently improved She initially declined but subsequently has undergone further gastrointestinal evaluation with EGD. She was found to have an oozing gastric ulcer and 3 bleeding angiodysplastic areas. She was treated during her EGD. She is continuing medical therapy at this time with PPI. Addt'l Comments She is now pending approval for transfer to the [facility] physical medicine/rehabilitation unit versus TCU. The patient's case was discussed and reviewed with her. Comment: Time spent the patient's overall evaluation, examination, care, documentation, etc.: 37 minutes. This note was generated using a voice recognition system and there may be incorrect words, spelling or punctuation that were not noted when reviewing the office note prior to saving. Procedure Criteria Type of Procedure Procedure Type: Elective Elective Risks - COVID COVID Risk Discussion: The surgeon/proceduralist and patient have discussed in detail the risk of exposure to and/or potential harm posed by the COVID-19 virus with having a surgery/procedure at this time versus the risk of delaying the surgery/procedure. It is not possible to know either the risk of delaying the surgery or procedure or chance of getting an infection with perfect accuracy, but a joint decision was made between the patient and the surgeon/proceduralist to proceed at this time with the scheduled surgery/procedure as indicated on the consent form.
--- NOTE | 2022-05-30 14:17 | CASEMGMT ---
Patient was denied by insurance for the [facility] Acute Rehab Unit. HENRY called patient's and let him know this information. SW let him know that options would now be a fdc facility or home with home health. Patient's said patient will throw a fit if she is told she will have to go to a fdc facility. He will be in today around 330. HENRY then received a call from patient's son Himanshu. HENRY explained above information to Himanshu. Himanshu said his mom told them she would rather than go to a care home. HENRY explained home health and how often therapy and/or nurse would be out to the home. Himanshu said patient will be alone while patient's works. Mable MONK
--- NOTE | 2022-05-30 14:27 | CASEMGMT ---
HENRY spoke with Pina from PT. Patient got up out of bed on her own, went to the bathroom on her own and managed her own hygiene. They are recommending patient go somewhere, but she would be okay going home with home health. Mable Herman MSW LACHO
--- NOTE | 2022-05-30 15:00 | CASEMGMT ---
SW went to patient's room. HENRY introduced self and role at [facility]. HENRY explained to patient that her insurance denied her to go to Acute Rehab. Patient told HENRY, I am going home with home health. SW asked patient if she has a walker at home and she said she has several. Patient said she could stay on 1 level. SW asked patient if she would like a list of home health agencies and she mentioned the hospital's home health. HENRY told patient HENRY will make a referral.
--- NOTE | 2022-05-30 15:15 | CASEMGMT ---
HENRY called [facility] and spoke with Joan regarding referral. Mable Herman TIRE BUILDER LACHO
--- NOTE | 2022-05-30 15:22 | CHAPLAIN ---
Type of Pastoral Visit _x__ Initial Visit ___ Follow-up Visit ___ On-call Visit ___ General Patient Visit ___ Spiritual Assessment ___ Family Conference ___ Bereavement ___ Rapid Response ___ Code Blue ___ Other (describe below) Pastoral Care Referral From ___ Patient ___ Family ___ Nurse ___ Physician ___ Security Support Analyst ___ Environmental Sustainability Manager _x__ Other (describe below) Sacrament/Intervention ___ Active listening ___ Anointing ___ Presybeterian ___ Bereavement ___ Communion ___ Amy exploration ___ ___ Life review ___ Prayer ___ Reconciliation ___ Sacrament of Sick _x__ Supportive presence ___ Wedding ___ Other (describe below) Pastoral Comments unknown source of referral; first two visits the patient was sleeping in bed; on third attempt the patient is sitting up in chair and reading on her Ipad; pt states that she is fine, does not need anything, and just reading to pass the time; on another offer of support or presence the patient declined any needs
--- NOTE | 2022-05-30 15:32 | CASEMGMT ---
Patient's arrived a [facility] and asked to talk with HENRY. HENRY met with patient's , Ezio. HENRY explained to Ezio that SW spoke with therapy today and they are still recommending patient go somewhere for rehab, but she could probably go home with home health and still be okay. HENRY explained to Ezio that SW spoke with patient and she is adamant she is going home with home health and not going to a retirement. Ezio said he does have 4 weeks of vacation so he could stay home for a little while if he has to. Ezio also said their son has 4 weeks of vacation, and they have a daughter and daughter in law that could help. SW did provide him with A list of?half-way facility providers including quality and resource use data and consistent with patient?s preferred geographic region, medical needs, and insurance network were provided from the [employer]. HENRY let Ezio know HENRY is working on setting up home health, however he can go back and talk with patient. Mable Herman CREW TRUCK DRIVER LACHO
--- NOTE | 2022-05-30 16:11 | CASEMGMT ---
HENRY spoke with Joan from [facility] and they can take patient with a start date of Monday. Patient will have a co-pay of 30%. This is approximately $78 per visit. HENRY spoke with patient and her and let them know [facility] can take patient. HENRY told them about the co-pay and they were okay with this. Plan: d/c home with [facility] penitentiary, PT, and OT. Mable MONK
[2022-05-30 16:19] VITALS: BP 125/64; PULSE 71; RESP 13; TEMP 36.6; O2SAT 97
[2022-05-30] MEDS: Sodium Chloride 1 GM Tablet PO ×2 (16:27→21:46)
[2022-05-30 17:00] LABS: Bedside Glucose 142 mg/dL (74-106)
[2022-05-30] MEDS: RisperiDONE 1 MG Tablet PO (21:44)
[2022-05-30] MEDS: MELATONIN 3 MG TABLET PO (21:45)
[2022-05-30] MEDS: Atorvastatin Calcium 10 MG Tablet PO (21:45)
[2022-05-30 21:55] VITALS: BP 122/58; PULSE 85; RESP 17; TEMP 36.6; O2SAT 94
[2022-05-31 00:50] LABS: Bedside Glucose 137 mg/dL (74-106)
[2022-05-31] MEDS: oxyCODONE 5 MG Tablet 10 MG PO ×2 (02:24→14:36)
[2022-05-31 02:30] VITALS: BP 138/70; PULSE 75; RESP 16; TEMP 36.7; O2SAT 95
[2022-05-31 06:54] VITALS: PULSE 60; RESP 12; O2SAT 97
[2022-05-31] MEDS: Ipratropium/Albuterol Sulfate 3 ML AMPUL.NEB INHALATION ×2 (06:54→14:20)
[2022-05-31 06:56] LABS: Bedside Glucose 100 mg/dL (74-106)
[2022-05-31 08:20] VITALS: BP 90/46; PULSE 54; RESP 15; TEMP 36.8; O2SAT 97
[2022-05-31] MEDS: predniSONE 20 MG Tablet PO (08:31)
[2022-05-31] MEDS: Potassium Chloride Oral Tablet 20 MEQ PO (08:31)
[2022-05-31] MEDS: Acetaminophen 325 MG Tablet 650 MG PO ×2 (08:48→14:36)
--- NOTE | 2022-05-31 08:50 | PCM.PN.CARD ---
Subjective Subjective The patient appears to be resting comfortably at this time. She has no new acute cardiovascular complaints. Objective Data Vital Signs: Vital Signs Temp Pulse Resp BP Pulse Ox O2 Del Method O2 Flow Rate 98.2 F 54 L 15 90/46 L 97 Nasal Cannula 3 05/31/22 08:20 05/31/22 08:20 05/31/22 08:20 05/31/22 08:20 05/31/22 08:20 05/31/22 08:20 05/31/22 08:20 FiO2 3 05/23/22 15:35 Oxygen Flow Rate (L/min) [ 4 AMBULATING with Oxygen #3] Oxygen Flow Rate (L/min) [ 3 AMBULATING with Oxygen #2] Oxygen Flow Rate (L/min) [ 2 AMBULATING with Oxygen #1] Oxygen Flow Rate (L/min) [At 2 REST with Oxygen] Oxygen Flow Rate (L/min) 3 Oxygen Delivery Method Nasal Cannula Weight: 80 lb 14.554 oz Body Mass Index (BMI) 20.5 Intake & Output: Intake and Output for Last 24 Hours 05/29/22 05/30/22 05/31/22 23:59 23:59 23:59 Intake Total 270 / 270 240 / 240 Balance 270 / 270 240 / 240 Lab / Micro Data Result Diagrams: 05/29/22 06:10 05/30/22 08:35 Labs: Laboratory Results - last 24 hr 05/30/22 08:35: Sodium 133 L, Potassium 4.1, Chloride 94 L, Carbon Dioxide 29.0, Anion Gap 10, BUN 20 H, Creatinine 0.39 L, Estim Creat Clear Calc 29.03, Est GFR (MDRD) Af Amer 208, Est GFR (MDRD) Non-Af 172, BUN/Creatinine Ratio 51.5 H, Glucose 105, Calcium 8.8, Total Bilirubin 0.40, AST 38 H, ALT 58 H, Alkaline Phosphatase 212 H, Total Protein 5.2 L, Albumin 1.9 L, Globulin 3.3, Albumin/Globulin Ratio 0.6 L 05/30/22 10:53: POC Glucose 113 H 05/30/22 16:31: POC Glucose 142 H 05/30/22 21:52: POC Glucose 137 H 05/31/22 06:34: POC Glucose 100 Cardiology Labs/Tests 05/30/22 08:35: Sodium 133 L, Potassium 4.1, Chloride 94 L, Carbon Dioxide 29.0, Anion Gap 10, BUN 20 H, Creatinine 0.39 L, Est GFR (MDRD) Af Amer 208, Est GFR (MDRD) Non-Af 172, BUN/Creatinine Ratio 51.5 H, Glucose 105, Calcium 8.8, Total Bilirubin 0.40 Rhythm: Sinus rhythm Physical Exam Const alert, oriented x3 and no apparent distress Constitutional Narrative: Wearing O2 nasal cannula Orientation / Consciousness: awake HEENT normocephalic, head/scalp atraumatic and hearing grossly normal bilaterally Eyes PERRL, EOMs intact bilaterally, conjunctivae normal and no scleral icterus Neck full ROM, supple and no JVD Resp normal respiratory effort Resp Narrative: No acute rales or rhonchi at this time. Cardio regular rate, regular rhythm, S1 normal heart sound and S2 normal heart sound Heart Sounds: murmur systolic II/ soft mid left sternal border GI normal to inspection, nondistended, normoactive bowel sounds Extremity no pedal edema Skin no rashes or lesions noted Assessment & Plan Assessment/Plan (1) SVT (supraventricular tachycardia): PLAN: The patient has a history of SVT. Since her most recent episode of PAF/flutter it appears she is remaining in sinus rhythm at this time. She is continuing her antiarrhythmic therapy with amiodarone. She is not on anticoagulant therapy secondary to concerns of her anemia and requirement for multiple PRBC transfusions. (2) Paroxysmal atrial fibrillation: PLAN: The patient has a history of PAF. She did have recurrent PAF/flutter. At the present time she is noted to be back in sinus rhythm. She is continuing her antiarrhythmic therapy with amiodarone at 200 mg p.o. daily. Her anticoagulation therapy has been on hold secondary to her anemia. (3) Wide-complex tachycardia: PLAN: The patient has had episodes of wide-complex tachycardia. There is concerned based upon review of her previous cardiac rhythm strips that this may be a form of atrial fibrillation with aberrancy. At the same time she also has evidence of sinus rhythm with wide QRS appearing compatible with aberrancy. She will continue her antiarrhythmic therapy with her amiodarone. (4) CAD (coronary artery disease): PLAN: The patient has a history of CAD. The details are unknown. At the moment she will continue medical management as best as possible. Ideally this would include agents such as aspirin, nitrates if needed, potentially beta-blockers, lipid-lowering agents, etc. She is not currently on antiplatelet therapy or anticoagulant therapy secondary to her GI bleed. She has not required therapy with nitrates at this time. Her beta-blockers have been on hold secondary to concerns of her lower blood pressures. She is continuing her statin therapy with atorvastatin. (5) S/P PTCA (percutaneous transluminal coronary angioplasty): PLAN: The patient is reported as having a history of previous PCI at an outside institution. Again the details are unknown. She will continue medical therapy. At the moment this includes her atorvastatin therapy. (6) Cardiomyopathy: PLAN: The patient has a history of a previous transient cardiomyopathy. Her most recent echocardiogram was reviewed. Her overall LV systolic function/LVEF appears to have improved. At the moment she appears without any acute symptoms of ongoing CHF or pulmonary edema. Again, ideally, would be reasonable to have her on medical management such as beta-blockers and afterload reducing agents such as RENAE inhibitor's or ARB's or Entresto. These medications that can lower her blood pressure have been on hold secondary to her lower pressures. (7) Cardiac murmur: PLAN: She does have a cardiac murmur. This may be secondary to a combination of her underlying noncardiac medical conditions including her anemia, superimposed upon her echocardiographic findings of underlying valvular heart related issues especially with respect to an element of calcification of the aortic valve. (8) Pneumonia: QUALIFIERS: Pneumonia type: due to Pneumococcus Laterality: right Lung location: middle lobe of lung Qualified Code(s): J13 - Pneumonia due to Streptococcus pneumoniae PLAN: The patient is being treated for underlying pneumonia superimposed upon her history of lung carcinoma. She continues under evaluation care per internal medicine and pulmonology/critical care medicine. (9) History of lung cancer: PLAN: The patient has a history of lung carcinoma. She will continue evaluation care per hematology and oncology. Apparently there has been discussions with the patient regarding the possibility of palliative/hospice care. She has declined evaluation by palliative/hospice care in the past. (10) Anemia: QUALIFIERS: Anemia type: unspecified type Qualified Code(s): D64.9 - Anemia, unspecified PLAN: The patient remains with anemia. She has subsequently received additional PRBCs. Her hemoglobin levels have subsequently improved She initially declined but subsequently has undergone further gastrointestinal evaluation with EGD. She was found to have an oozing gastric ulcer and 3 bleeding angiodysplastic areas. She was treated during her EGD. She is continuing medical therapy at this time with PPI. Addt'l Comments Overall, the patient is continuing conservative medical management. She is not on all cardiovascular medications based upon concerns of her blood pressure (hypotension) and her GI bleed and acute blood loss-related issues. She will continue her current therapy with her amiodarone therapy and her atorvastatin therapy. She is now reported as not being transferred to an extended care facility. Instead it appears that the plan is for the patient to return home with home health nursing. The patient's case has been discussed and reviewed with the patient. Comment: Time spent in the patient's overall evaluation, care, documentation, etc.: 37 minutes. Procedure Criteria Type of Procedure Procedure Type: Elective Elective Risks - COVID COVID Risk Discussion: The surgeon/proceduralist and patient have discussed in detail the risk of exposure to and/or potential harm posed by the COVID-19 virus with having a surgery/procedure at this time versus the risk of delaying the surgery/procedure. It is not possible to know either the risk of delaying the surgery or procedure or chance of getting an infection with perfect accuracy, but a joint decision was made between the patient and the surgeon/proceduralist to proceed at this time with the scheduled surgery/procedure as indicated on the consent form.
--- NOTE | 2022-05-31 09:45 | PN.HOSP_ITS ---
Subjective Subjective Follow-up respiratory failure Patient seen patient was denied transfer to group home facility. Patient will therefore be discharged home with home health Objective Data Objective Data Vital Signs: Vital Signs Temp Pulse Resp BP Pulse Ox O2 Del Method O2 Flow Rate 98.2 F 54 L 15 90/46 L 97 Nasal Cannula 3 05/31/22 08:20 05/31/22 08:20 05/31/22 08:20 05/31/22 08:20 05/31/22 08:20 05/31/22 08:20 05/31/22 08:20 FiO2 3 05/23/22 15:35 Oxygen Flow Rate (L/min) [ 4 AMBULATING with Oxygen #3] Oxygen Flow Rate (L/min) [ 3 AMBULATING with Oxygen #2] Oxygen Flow Rate (L/min) [ 2 AMBULATING with Oxygen #1] Oxygen Flow Rate (L/min) [At 2 REST with Oxygen] Oxygen Flow Rate (L/min) 3 Oxygen Delivery Method Nasal Cannula Weight: 36.7 kg Body Mass Index (BMI) 20.5 Intake & Output: Intake and Output for Last 24 Hours 05/29/22 05/30/22 05/31/22 23:59 23:59 23:59 Intake Total 270 / 270 240 / 240 Balance 270 / 270 240 / 240 Medical Nutrition Assessment Dietitian: Malnutrition Criteria Met Start: 05/17/22 11:27 Freq: Status: Active Protocol: Document 05/25/22 13:28 (Rec: 05/25/22 13:28 [id number]) Nutrition Malnutrition Evidence of Malnutrition Exists Yes Malnutrition (severe): Acute Illness/Injury Evidenced By Suboptimal Energy Intake ( Severe),Physical Changes ( Severe) Intake Problem Inadequate Oral Intake Etiology related to resp. failure Signs/Symptoms as evidenced by NPO status Status Resolved Problem Clinical Problem Chronic Disease or Condition Related Malnutrition Etiology severe, chronic malnutrition related to inadequate energy intake Signs/Symptoms as evidenced by severe muscle wasting/fat loss evident in orbital, clavicle, acromion, temporal areas per physical exam; estimated energy intake meeting <75% of estimated energy needs > 3 months Status Active Problem Recommendation Dietitian Recommendations/Changes Will continue cardiac/2000 calorie controlled w/ 1250mL fluid restriction per hospitalist; will fortify foods when possible. Will d/c ensure plus high protein 120mL 4x/day w/ medpass as pt is currently refusing. Pt not interested in other ONS at this time. Lab / Micro Data Result Diagrams: 05/29/22 06:10 05/30/22 08:35 Labs: Laboratory Results - last 24 hr 05/30/22 10:53: POC Glucose 113 H 05/30/22 16:31: POC Glucose 142 H 05/30/22 21:52: POC Glucose 137 H 05/31/22 06:34: POC Glucose 100 Micro: Microbiology 05/28/22 18:27 Stool Stool Occult Blood (RODRIGUE) - Final Occult Blood Positive 05/19/22 23:05 Blood Culture (Wb) - Arm Left Blood Culture - Final No growth in 5 days. 05/19/22 22:35 Blood Culture (Wb) - Pic Blood Culture - Final No growth in 5 days. 05/19/22 22:25 Urine Catheter - Bailey Urine Culture - Final Presumptive C albicans 05/14/22 20:05 Sputum, Tracheal Aspirate Gram Stain - Final 05/14/22 20:05 Sputum, Tracheal Aspirate Respiratory Culture - Final Mixed normal respiratory mariano. No Streptococcus pneumoniae, beta-hemolytic Streptococcus or Staphylococcus aureus isolated. 05/11/22 11:50 Blood Culture (Wb) - Right Wrist Blood Culture - Final No growth in 5 days. 05/11/22 11:30 Blood Culture (Wb) #2 - Left Wrist Blood Culture - Final No growth in 5 days. 05/11/22 00:00 Urine Catheter - Bailey Urine Culture - Final Culture exhibits no growth. 05/11/22 19:40 Sputum, Expectorated/Coughed Gram Stain - Final 05/11/22 19:40 Sputum, Expectorated/Coughed Respiratory Culture - Final 05/11/22 21:45 Urine Catheter - Bailey Legionella Antigen - Final 05/11/22 21:45 Urine Catheter - Bailey Streptococcus pneumoniae Antigen (M - Final 05/11/22 11:21 Nasal Secretion SARS-CoV-2 & FLU Antigen (Rapid) - Final Physical Exam Narrative GENERAL: cooperative but frail looking HEENT: Atraumatic; normocephalic EYES; Anicteric, Normal Conjunctiva NECK; supple, normal thyroid, RESPIRATORY: Diminished to auscultation CARDIOVASCULAR: Regular S1 S2, GI: soft, normoactive bowel sounds, : No Renal angle tenderness; EXTREMITIES: No edema, no clubbing, MUSCULOSKELETAL: no muscle wasting NEURO: Awake; no lateralizing signs. SKIN: No Rash PSYCH; Flat affect Assessment & Plan Assessment/Plan (1) Anemia: QUALIFIERS: Anemia type: unspecified type Qualified Code(s): D64.9 - Anemia, unspecified PLAN: Plan Patient is a 72-year-old lady who has been on admission for almost 19 days following acute on chronic hypoxic respiratory failure secondary to right upper lobe pneumonia COPD with acute exacerbation resulting in patient going on the vent with subsequent extubation and reintubation and extubation. Hospital stay complicated by GI bleed underwent EGD found to have gastric ulcer angiodysplastic lesion status post epinephrine injection and heater probe cauterization. 1. Acute on chronic hypoxic respiratory failure ? Secondary to right upper lobe pneumonia with COPD exacerbation ? Patient was intubated extubated reintubated and subsequently extubated with treatment of underlying condition -05/31/2022 patient seen patient was denied transfer to group home facility. Patient will therefore be discharged home with home health 2. Shock ? Secondary to pneumonia as well as hypovolemic and hemorrhagic shock treated appropriately resolved 3. COPD with acute exacerbation ? Treated with systemic steroid as well as bronchodilator treatment resolved 4. Acute anemia secondary to acute blood loss anemia from upper GI bleed ? Patient underwent EGD on 05/26/2022 which demonstrated gastric ulcer/angiodys plastic lesion underwent epinephrine injection and heater probe cauterization subsequently monitoring with daily H&H 5. Severe protein calorie malnutrition ? Secondary to patient multiple medical comorbidities. Consult placed to dietitian 6. Coronary artery disease ? With previous PCI currently stable 7. Small cell lung CA ? Apparently in remission patient is followed by chemo as outpatient 8. Chronic hyponatremia ? Secondary to SIADH patient was on salt tablet prior to his admission 9. Peripheral arterial disease ? Per history. Patient has undergone previous aortofemoral bypass 10. Acute on chronic congestive heart failure ? Echo obtained during hospital stay demonstrated EF of 35%. Patient managed previously with diuretics 11. Osteoporosis ? Patient is on alendronate as outpatient 12. DVT prophylaxis ? Patient was on Eliquis held in view of upper GI bleed 13. Physical deconditioning - Requested for PT OT eval and social work case manager to assist with discharge planning Total time spent evaluating patient review of labs subsequent adjustment of management orders and discussion with other providers involved with patient's care; 36-minute Charges/Coding Visit Charges Inpatient E&M: 40884 Subs Hosp L2
[2022-05-31] MEDS: morphine SR 15 MG Tablet PO (10:12)
[2022-05-31] MEDS: busPIRone 5 MG Tablet 10 MG PO (10:13)
[2022-05-31] MEDS: Loratadine 10 MG Tablet PO (10:13)
[2022-05-31] MEDS: Pantoprazole Sodium 40 MG Tablet PO (10:13)
[2022-05-31] MEDS: Magnesium Chloride 64 MG Delay Rel.Tablet 128 MG PO (10:14)
[2022-05-31] MEDS: Amiodarone 200 MG Tablet PO (10:14)
[2022-05-31] MEDS: Senna/Docusate Sodium 1 Tablet 2 TABLET PO (10:14)
[2022-05-31] MEDS: RisperiDONE 0.5 MG Tablet PO (10:15)
[2022-05-31 11:00] VITALS: BP 100/50; PULSE 86; RESP 16; TEMP 36.9; O2SAT 100
--- NOTE | 2022-05-31 11:50 | DS.PCM_ITS ---
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 ventilator. pneumonia EMERGENT Consult: No Notified: Yes Date Notified: 05/11/22 Time Notified: 20:04 Method of Notification: Text 05/21/22 06:50 Consult: Gastroenterology Routine Consulting Provider: [facility] Reason for Consult: GIB EMERGENT Consult: No Notified: Yes Date Notified: 05/21/22 Time Notified: 06:51 Method of Notification: Text Reason For Visit: PNEUMONIA. ANEMIA Diagnosis Discharge Diagnosis (1) Anemia: Status: Acute Code(s): D64.9 - Anemia, unspecified Qualifiers: Anemia type: unspecified type Qualified Code(s): D64.9 - Anemia, unspecified Plan Patient is a 72-year-old lady who has been on admission for almost 19 days following acute on chronic hypoxic respiratory failure secondary to right upper lobe pneumonia COPD with acute exacerbation resulting in patient going on the vent with subsequent extubation and reintubation and extubation. Hospital stay complicated by GI bleed underwent EGD found to have gastric ulcer angiodysplastic lesion status post epinephrine injection and heater probe ca uterization. 1. Acute on chronic hypoxic respiratory failure ? Secondary to right upper lobe pneumonia with COPD exacerbation ? Patient was intubated extubated reintubated and subsequently extubated with treatment of underlying condition -05/31/2022 patient seen patient was denied transfer to long-term facility. Patient will therefore be discharged home with home health 2. Shock ? Secondary to pneumonia as well as hypovolemic and hemorrhagic shock treated appropriately resolved 3. COPD with acute exacerbation ? Treated with systemic steroid as well as bronchodilator treatment resolved 4. Acute anemia secondary to acute blood loss anemia from upper GI bleed ? Patient underwent EGD on 05/26/2022 which demonstrated gastric ulcer/angiodysplastic lesion underwent epinephrine injection and heater probe cauterization subsequently monitoring with daily H&H 5. Severe protein calorie malnutrition ? Secondary to patient multiple medical comorbidities. Consult placed to dietitian 6. Coronary artery disease ? With previous PCI currently stable 7. Small cell lung CA ? Apparently in remission patient is followed by chemo as outpatient 8. Chronic hyponatremia ? Secondary to SIADH patient was on salt tablet prior to his admission 9. Peripheral arterial disease ? Per history. Patient has undergone previous aortofemoral bypass 10. Acute on chronic congestive heart failure ? Echo obtained during hospital stay demonstrated EF of 35%. Patient managed previously with diuretics 11. Osteoporosis ? Patient is on alendronate as outpatient 12. DVT prophylaxis ? Patient was on Eliquis held in view of upper GI bleed 13. Physical deconditioning - Requested for PT OT eval and delinquency prevention social worker to assist with discharge planning Total time spent evaluating patient review of labs subsequent adjustment of management orders and discussion with other providers involved with patient's care; 36-minute Medications at Discharge Home Medications atorvastatin 10 mg tablet 10 tab PO QHS CHOLESTEROL 11/13/21 fluticasone fur. 100 mcg-umeclid 62.5 mcg-vilant 25 mcg inhalat.powder (Trelegy Ellipta) 1 ea inhalation DAILY SHORTNESS OF BREATH 11/13/21 albuterol sulfate 90 mcg/actuation aerosol inhaler 2 inh inhalation Q4H PRN SOB 01/04/22 alendronate 70 mg tablet 70 mg PO SOLIS BONES 01/04/22 loratadine 10 mg tablet (Claritin) 10 mg PO DAILY ALLERGIES 01/04/22 magnesium oxide 400 mg (241.3 mg magnesium) tablet 400 mg PO DAILY SUPPLEMENT 01/04/22 pantoprazole 40 mg tablet,delayed release 40 mg PO DAILY GERD 01/04/22 morphine 15 mg tablet,extended release (MS Contin) 15 mg PO BID PAIN 1 day #2 tabs 01/13/22 acetaminophen 325 mg tablet (Tylenol) 650 mg PO Q6H PRN PRN Pain 05/11/22 ipratropium 0.5 mg-albuterol 3 mg (2.5 mg base)/3 mL nebulization soln 3 ml inhalation Q6H PRN Shortness Of Breath 05/11/22 nicotine 21 mg/24 hr daily transdermal patch 1 patch transdermal Q24H 05/11/22 oxycodone-acetaminophen 10 mg-325 mg tablet (Percocet) 1 tab PO TID PAIN 05/11/22 sodium chloride 1 gram tablet 1,000 mg PO TID SUPPLEMENT 05/11/22 amiodarone 200 mg tablet 200 mg PO DAILY 30 days #30 tabs 05/31/22 buspirone 5 mg tablet 10 mg PO BID 30 days #120 tabs 05/31/22 furosemide 20 mg tablet 20 mg PO BIDCM FLUID 30 days #60 tabs 05/31/22 lisinopril 2.5 mg tablet 2.5 mg PO DAILY 30 days #30 tabs 05/31/22 metoprolol tartrate 25 mg tablet 12.5 mg PO BID 30 days #30 tabs 05/31/22 pantoprazole 40 mg tablet,delayed release 40 mg PO BID 30 days #60 tabs 05/31/22 polyethylene glycol 3350 17 gram oral powder packet 17 g PO BID 30 days #60 ea 05/31/22 potassium chloride 20 mEq tablet,extended release(part/cryst) (Klor-Con M) 20 meq PO BIDCM 30 days #60 tabs 05/31/22 prednisone 10 mg tablet 10 mg PO BREAKFAST #10 tabs 05/31/22 sodium chloride 1,000 mg soluble tablet 1 g PO TID #0 tabs 05/31/22 sucralfate 1 gram tablet 1 g PO 0700,1100,1600 30 days #90 tabs 05/31/22 Hospital Course Summary of Care Provided Minutes Spent on Discharge: 36 Physical Exam Narrative GENERAL: cooperative but frail looking HEENT: Atraumatic; normocephalic EYES; Anicteric, Normal Conjunctiva NECK; supple, normal thyroid, RESPIRATORY: Diminished to auscultation CARDIOVASCULAR: Regular S1 S2, GI: soft, normoactive bowel sounds, : No Renal angle tenderness; EXTREMITIES: No edema, no clubbing, MUSCULOSKELETAL: no muscle wasting NEURO: Awake; no lateralizing signs. SKIN: No Rash PSYCH; Flat affect Medical Records Data Medical Nutrition Assessment Dietitian: Malnutrition Criteria Met Start: 05/17/22 11:27 Freq: Status: Active Protocol: Document 05/25/22 13:28 (Rec: 05/25/22 13:28 [id number]) Nutrition Malnutrition Evidence of Malnutrition Exists Yes Malnutrition (severe): Acute Illness/Injury Evidenced By Suboptimal Energy Intake ( Severe),Physical Changes ( Severe) Intake Problem Inadequate Oral Intake Etiology related to resp. failure Signs/Symptoms as evidenced by NPO status Status Resolved Problem Clinical Problem Chronic Disease or Condition Related Malnutrition Etiology severe, chronic malnutrition related to inadequate energy intake Signs/Symptoms as evidenced by severe muscle wasting/fat loss evident in orbital, clavicle, acromion, temporal areas per physical exam; estimated energy intake meeting <75% of estimated energy needs > 3 months Status Active Problem Recommendation Dietitian Recommendations/Changes Will continue cardiac/2000 calorie controlled w/ 1250mL fluid restriction per hospitalist; will fortify foods when possible. Will d/c ensure plus high protein 120mL 4x/day w/ medpass as pt is currently refusing. Pt not interested in other ONS at this time. Weight / BMI Weight Weight: 36.7 kg Body Mass Index (BMI) 20.5 ABG / Lab / Microbiology Data Result Diagrams: 05/29/22 06:10 05/30/22 08:35 Laboratory: Laboratory Results - last 24 hr 05/30/22 16:31: POC Glucose 142 H 05/30/22 21:52: POC Glucose 137 H 05/31/22 06:34: POC Glucose 100 Microbiology: Microbiology 05/28/22 18:27 Stool Stool Occult Blood (RODRIGUE) - Final Occult Blood Positive 05/19/22 23:05 Blood Culture (Wb) - Arm Left Blood Culture - Final No growth in 5 days. 05/19/22 22:35 Blood Culture (Wb) - Pic Blood Culture - Final No growth in 5 days. 05/19/22 22:25 Urine Catheter - Bailey Urine Culture - Final Presumptive C albicans 05/14/22 20:05 Sputum, Tracheal Aspirate Gram Stain - Final 05/14/22 20:05 Sputum, Tracheal Aspirate Respiratory Culture - Final Mixed normal respiratory mariano. No Streptococcus pneumoniae, beta-hemolytic Streptococcus or Staphylococcus aureus isolated. 05/11/22 11:50 Blood Culture (Wb) - Right Wrist Blood Culture - Final No growth in 5 days. 05/11/22 11:30 Blood Culture (Wb) #2 - Left Wrist Blood Culture - Final No growth in 5 days. 05/11/22 00:00 Urine Catheter - Bailey Urine Culture - Final Culture exhibits no growth. 05/11/22 19:40 Sputum, Expectorated/Coughed Gram Stain - Final 05/11/22 19:40 Sputum, Expectorated/Coughed Respiratory Culture - Final 12/21/22 21:45 Urine Catheter - Bailey Legionella Antigen - Final 05/11/22 21:45 Urine Catheter - Bailey Streptococcus pneumoniae Antigen (M - Final 05/11/22 11:21 Nasal Secretion SARS-CoV-2 & FLU Antigen (Rapid) - Final D/C Instructions Discharge Diet: 8 Cup Fluid Restriction Discharge Activity: Return to Normal Activity Call your doctor if you observe: Fever of 101 or Higher, Shortness of breath, Fainting spells and Chest pain Meaningful Use Info Meaningful Use Diagnoses (Choose all that apply): CHF CHF RENAE/ARB ordered at discharge?: Yes Documented LVEF (%): 35 Discharge Plan Admission Admit Date/Time: 05/11/22 15:01 Attending Provider: Tobi Padilla Primary Care Provider: Cirssy Lema NP Consulting Providers: Jake Figueroa ; Jamir Summers ; Mirian Hernandez ; Vic Reyes ; Jeramy Pineda ; Bridger Jin ; David Seaman ; Salo Lockett ; Rita Morales [employer] MOULDER OPERATOR ; Shannon Salas Discharge Orders/Prescriptions Prescriptions: New sucralfate 1 gram Tablet 1 g PO 0700,1100,1600 30 Days Qty: 90 0RF prednisone 10 mg tablet 10 mg PO BREAKFAST Qty: 10 0RF sodium chloride 1,000 mg Tablet,Soluble 1 g PO TID Qty: 0 0RF buspirone 5 mg Tablet 10 mg PO BID 30 Days Qty: 120 0RF polyethylene glycol 3350 17 gram Powder In Packet 17 g PO BID 30 Days Qty: 60 0RF amiodarone 200 mg Tablet 200 mg PO DAILY 30 Days Qty: 30 0RF potassium chloride [Klor-Con M20] 20 mEq Tablet,Er Particles/Crystals 20 meq PO BIDCM 30 Days Qty: 60 0RF pantoprazole 40 mg Tablet,Delayed Release (Dr/Ec) 40 mg PO BID 30 Days Qty: 60 0RF lisinopril 2.5 mg Tablet 2.5 mg PO DAILY 30 Days Qty: 30 0RF metoprolol tartrate 25 mg Tablet 12.5 mg PO BID 30 Days Qty: 30 0RF Continued Trelegy Ellipta 100-62.5-25 mcg blister with device 1 ea INHALATION DAILY atorvastatin 10 mg tablet 10 tab PO QHS loratadine [Claritin] 10 mg Tablet 10 mg PO DAILY alendronate 70 mg tablet 70 mg PO SOLIS magnesium oxide 400 mg (241.3 mg magnesium) tablet 400 mg PO DAILY pantoprazole 40 mg tablet,delayed release (DR/EC) 40 mg PO DAILY albuterol sulfate 90 mcg/actuation HFA aerosol inhaler 2 inh INHALATION Q4H PRN (Reason: SOB) morphine [MS Contin] 15 mg Tablet Extended Release 15 mg PO BID 1 Days Qty: 2 0RF nicotine 21 mg/24 hr patch 24 hour 1 patch transdermal Q24H acetaminophen [Tylenol] 325 mg tablet 650 mg PO Q6H PRN PRN (Reason: Pain) ipratropium-albuterol 0.5 mg-3 mg(2.5 mg base)/3 mL solution for nebulization 3 ml inhalation Q6H PRN (Reason: Shortness Of Breath) sodium chloride 1 gram tablet 1,000 mg PO TID oxycodone-acetaminophen [Percocet] 10-325 mg tablet 1 tab PO TID Changed furosemide 20 mg tablet 20 mg PO BIDCM 30 Days Qty: 60 0RF Discontinued potassium chloride 20 mEq Tablet Extended Release 20 meq PO BID Eliquis 5 mg tablet 5 mg PO BID Referrals / Follow Up: Crissy Lema NP, [employer] MOULDER OPERATOR-C [Primary Care Provider] - 06/07/22 11:20 am Jeramy Pineda MD [Med Staff - Active Staff] - Within 2 Weeks Disposition Disposition (needs filled in before D/C Order can be placed): Home Health Service Charges/Coding Visit Charges Inpatient E&M: 87189 Disch Hosp >30min
[2022-05-31 12:30] LABS: Bedside Glucose 140 mg/dL (74-106)
[2022-05-31 14:20] VITALS: PULSE 60; RESP 16
[2022-05-31] MEDS: Sucralfate 1 GM Tablet PO (14:26)
[2022-05-31] MEDS: Sodium Chloride 1 GM Tablet PO (14:27)
[2022-05-31] MEDS: Menthol/Lanolin/Calamine/Znox 113 GM Tube 1 APPLIC TOPICAL (14:27)
[2022-05-31 15:41] VITALS: BP 98/54; PULSE 83; RESP 15; TEMP 37; O2SAT 96
== END 2022-05-31 16:49 | disposition home health service (06) | DRG 208 ==
LOC: ED 15:27 → MS3 16:11 → PCU 17:30 → ICU 20:42 → PCU 05-27 04:34
PROVIDERS: Family Medicine; Internal Medicine; Internal Medicine Cardiovascular Disease; Internal Medicine Critical Care Medicine; Internal Medicine Gastroenterology; Emergency Provider Emergency Medicine; PCP Nurse Practitioner Adult Health; Visit Provider Internal Medicine
PROC: 0DJ08ZZ Inspection of Upper Intestinal Tract, Via Natural or Artificial Opening Endoscopic (ICD-10-PCS; CPT 43235; principal; 2022-05-25 12:40)
DX: J13 Pneumonia due to Streptococcus pneumoniae (principal); J96.21 Acute and chronic respiratory failure with hypoxia; R57.8 Other shock; I50.23 Acute on chronic systolic (congestive) heart failure; E43 Unspecified severe protein-calorie malnutrition; K25.4 Chronic or unspecified gastric ulcer with hemorrhage; K31.811 Angiodysplasia of stomach and duodenum with bleeding; I42.9 Cardiomyopathy, unspecified; I47.1 Supraventricular tachycardia; D62 Acute posthemorrhagic anemia; D69.6 Thrombocytopenia, unspecified; I48.0 Paroxysmal atrial fibrillation; I73.9 Peripheral vascular disease, unspecified; J43.9 Emphysema, unspecified; I25.10 Atherosclerotic heart disease of native coronary artery without angina pectoris; K21.9 Gastro-esophageal reflux disease without esophagitis; I34.0 Nonrheumatic mitral (valve) insufficiency; E78.5 Hyperlipidemia, unspecified; F41.9 Anxiety disorder, unspecified; E86.1 Hypovolemia; D63.8 Anemia in other chronic diseases classified elsewhere; D50.9 Iron deficiency anemia, unspecified; I25.2 Old myocardial infarction; M81.0 Age-related osteoporosis without current pathological fracture; G89.4 Chronic pain syndrome; R73.9 Hyperglycemia, unspecified; R01.1 Cardiac murmur, unspecified; Z68.20 Body mass index [BMI] 20.0-20.9, adult; Z20.822 Contact with and (suspected) exposure to COVID-19; Z79.01 Long term (current) use of anticoagulants; Z79.82 Long term (current) use of aspirin; Z79.83 Long term (current) use of bisphosphonates; Z79.899 Other long term (current) drug therapy; Z87.891 Personal history of nicotine dependence; Z92.21 Personal history of antineoplastic chemotherapy; Z95.5 Presence of coronary angioplasty implant and graft; Z85.118 Personal history of other malignant neoplasm of bronchus and lung; Z95.820 Peripheral vascular angioplasty status with implants and grafts
CPT/HCPCS: 31500; 31720; 36415; 36569; 36600; 70450; 71045; 71260; 72100; 72170; 74018; 80048; 80053; 80162; 81001; 82274; 82550; 82607; 82728; 82803; 82962; 83036; 83540; 83550; 83605; 83735; 83880; 84100; 84145; 84443; 84478; 84484; 85014; 85018; 85025; 85045; 85610; 86850; 86900; 86901; 86920; 86922; 87040; 87070; 87086; 87088; 87205; 87428; 87449; 88305; 88342; 93005; 93306; 93308; 94002; 94003; 94640; 94660; 94667; 94668; 94762; 94799; 97110; 97116; 97162; 97167; 97530; 97535; 97537; 97802; 97803; 99251; 99285; J2997; J7030; J7040; J7050; J7120; P9016; Q9967; A4216; G0463; J0153; J1940; J2405; J2916; J3010